=== PATIENT | female | born 1955 | race Caucasian/White ===

== ENCOUNTER 2017-09-28 16:12 | Observation (INO) | payer OTHER, BC, SELFPAY ==
[2017-09-28] VITALS (9 sets, daily range): BP systolic 136–191; BP diastolic 96–114; PULSE 67–99; RESP 16–23; TEMP 36.8; O2SAT 95–99; BMI 28.0; BMI 26.6; BMI 28.1
--- NOTE | 2017-09-28 16:46 | EKG12_ITS ---
Test Reason : HTN Blood Pressure : / mmHG Vent. Rate : 083 BPM Atrial Rate : 083 BPM P-R Int : 130 ms QRS Dur : 082 ms QT Int : 406 ms P-R-T Axes : 069 055 068 degrees QTc Int : 477 ms Normal sinus rhythm Normal ECG Confirmed by KECIA LYNNE, MARTA ([id number]), editor book DENIS LOBO ([id number]) on 09/30/2017 2:46:44 PM Referred By: JESSICA Confirmed By:MARTA MCDONNELL MD
--- NOTE | 2017-09-28 16:46 | CT_ITS ---
CT Head or Brain W/O Contrast INDICATION: HTN, DIZZINESS. H/O CVA 6 YRS AGO, HEART STENTS. COMPARISON: None TECHNIQUE: Noncontrast axial CT examination of the brain. Radiation dose optimization applied. FINDINGS: The ventricular system is normal in size and symmetric. The cortical sulci, sylvian fissures, and basal cisterns are well seen. The hamilton-white matter junction is distinct. There is no evidence of acute intracranial hemorrhage, mass effect, midline shift, or abnormal extra-axial collection. The calvarium is intact and the visualized paranasal sinuses and mastoid air cells are clear. CT/Brain/Head without Contrast IMPRESSION: No evidence of acute intracranial abnormality by noncontrast CT. at 1812 Reported and signed by: Melia Alegre MD Electronically Signed: Melia Alegre MD at 17:10 EDT Tel , Service support ,
--- NOTE | 2017-09-28 16:48 | RAD_ITS ---
XR Chest 1 View INDICATION: hypertension COMPARISON: March 2014 TECHNIQUE: Portable chest x-ray FINDINGS: Penaloza size and pulmonary vascularity are within normal limits. Lungs are hyperinflated with coarsened interstitial markings. No evidence of focal airspace consolidation or pleural effusion. RAD/Chest 1 View (Portable) IMPRESSION: COPD. No active infiltrate. at 1709 Reported and signed by: Melia Alegre MD Electronically Signed: Melia Alegre MD at 16:07 EDT Tel , Service support ,
[2017-09-28 17:12] LABS: Absolute Lymphocyte Count 3.45 X10^3/ul (0.83-4.51); Basophil# 0.05 X10^3/uL; Basophil% 0.5 % (0-1); Eosinophil# 0.19 X10^3/uL; Hematocrit 44.7 % (37-47); Hemoglobin 14.4 g/dl (12.0-15.0); Lymphocyte # 3.45 X10^3/ul (4.0); Lymphocyte % 36.8 % (19-41); Mean Corp Hgb Conc 32.2 g/gl (32-36); Mean Corpuscular Hgb 29.6 pg (27.0-32.0); Mean Platelet Vol. 9.7 fl (6.2-12.0); Monocyte# 0.64 X10^3/uL; Monocyte% 6.8 % (0-10); Neutrophil # 5.04 X10^3/uL (2.7-7.7); Neutrophil % 53.8 % (47-70); Platelet Count 315 K/mm3 (150-450); RBC Distribution Width CV 13.8 % (11.6-14.6); RBC Distribution Width SD 46.4 fl (35.1-43.9); Red Blood Count 4.86 M/mm3 (4.2-5.4); White Blood Count 9.4 K/mm3 (4.4-11.0)
[2017-09-28 17:14] LABS: POSITIVE COUNT NO; POSITIVE DIFFERENTIAL NO; POSITIVE MORPHOLOGY NO
[2017-09-28 17:34] LABS: Anion Gap 7 (5-15); BUN 19 mg/dL (7-18); BUN/Creat Ratio 25.8 RATIO (10-20); Calcium,Total 8.3 mg/dL (8.5-10.1); Chloride 109 mmol/L (98-107); Creatinine, Serum 0.74 mg/dL (0.55-1.02); EST Glomerular Filtration Rate 85 mL/min (>60); Est Glom Filt Rate - Afr Amer 103 mL/min (>60); Estimated Creatinine Clearance 69.81 ml/min; Glucose 81 mg/dL (74-106); Potassium 4.1 mmol/L (3.5-5.1); Sodium Level 141 mmol/L (136-145)
[2017-09-28 18:51] LABS: Bacteria 0 SEEN /hpf (None Seen); Mucous, Urine 0 SEEN /hpf (<or=2+); Red Blood Cells-Urine 0 SEEN /hpf (0-5); White Blood Cells 0 SEEN /hpf (0-5)
[2017-09-28 19:00] LABS: Color, Urine Yellow (Yellow); Glucose, Dipstick Normal (Normal); Ketone-Dipstick Negative (Negative); Leukocyte Esterase-Dipstick 25 /ul (Negative); Nitrite-Dipstick Negative (Negative); Occult Blood-Urine 10 /ul (Negative); Protein-Dipstick Negative (Negative); Specific Gravity, Urine 1.015 (1.002-1.030); Urine Bilirubin Dipstick Negative (Negative); Urine Clarity Clear (Clear); Urine Urobilinogen Normal (Normal)
[2017-09-28 19:28] LABS: Squamous Epithelial Cells - UA 0-5 SEEN /hpf (5-10)
--- NOTE | 2017-09-28 19:36 | ED.VISSUMM ---
- ER Visit Summary Date of Service: 09/28/17 Chief Complaint: [Penis and hypertension] History of Present Illness: The patient is a 62 F [presents to the emergency department with chief complaint of dizziness for about a month. Patient states that she has had episodes of vertigo-like symptoms that cause her to feel nauseated. These symptoms come on randomly and it can happen while standing or sitting or lying flat. The events are very brief lasting only several minutes and then resolved. They become more frequent over the last couple of days. Patient was seen by primary care physician yesterday because of elevated blood pressures and patient was started on amlodipine. Patient normally on losartan however has been somewhat noncompliant as she does not always take her blood pressure medications. Patient denies any chest pain or palpitations when the symptoms happened. Patient states she is chronically short of breath. Past medical history significant for hypertension and coronary artery disease with 2 prior cardiac stents.] Physical Examination: [HEENT-PERRLA, EOMI. Cranial nerves II through XII grossly intact. R TM clear. Mucous membranes moist. No adenopathy. Patient has a cerumen impaction left ear canal. Cardiovascular-regular rate and rhythm without murmur or ectopy Lungs-clear to auscultation, chest wall stable without crepitus or subcu emphysema Abdomen-normoactive bowel sounds, soft, nontender, no rebound or rigidity, no peritoneal signs. Neuro [id number] and heel armstrong testing within normal limits, negative Romberg, negative pronator drift, fundi benign. Hallpike was negative for nystagmus and I could not reproduce her symptoms. Extremities-intact ?4, normal range of motion, normal pulses, atraumatic] Test Results: [CT scan of the brain without contrast was normal. EKG obtained on arrival shows sinus rhythm with a rate of 83 bpm with no acute ST segment changes. CBC with it was normal. Chemistries were normal. Urinalysis was normal. Troponin was less than 0.02. Chest x-ray showed COPD otherwise nothing acute.] Emergency Department Course and Treatment: [Patient had irrigation of the left ear and cerumen was removed with normal tympanic membrane visualized after removal.] Treatment Plan: [This point I recommended we admit patient for further workup and evaluation of her vertigo as I was concerned about possibility of posterior circulation etiology. Patient understands my concerns and is refusing admission at this point. Patient states she has had the symptoms for over a month and would like to follow-up as an outpatient.] I will start patient on Antivert. Disposition: [Discharged to home in stable condition. Patient will be referred to neurology on-call.] Impression: [Hypertension-established Vertigo/dizziness-etiology uncertain ] This note was generated with [employer] dictation software. It may contain incorrect words, spelling, and punctuation that were not noted in review of the chart prior to signing ED Disposition - Plan for ED Patient: Chief Complaint: Hypertension Referrals: Miri Cummins DO [Primary Care Provider] -
--- NOTE | 2017-09-28 19:41 | ED.DEP ---
ED Disposition - Plan for ED Patient: Chief Complaint: Hypertension Instructions: ED HTN Established, ED Dizziness UKO Prescriptions: Meclizine HCl [Antivert] 25 mg PO 4X/DAY PRN PRN #15 tab PRN Reason: Vertigo Referrals: Miri Cummins DO [Primary Care Provider] - 5-7 Days Shiraz Porter MD [STAFF PHYSICIAN] - 3-5 Days
--- NOTE | 2017-09-28 20:26 | PCM.HP.STD ---
Problem List (1) Vertigo Status: Acute (2) CAD (coronary artery disease) Status: Chronic (3) Hypertension Status: Chronic History of Present Illness Date of Admission: 09/28/17 Chief Complaint: dizziness The patient is a 62 year old F who presents with multiple bouts of vertigo over the past month. Patient states that it has been getting worse and now multiple times per day. Can occur when she is active, can occur when she is at rest. States that when it does occur, she has to lay down it usually resolves after a few minutes. With these symptoms, patient does get nauseated and just dizzy and weak. And has never had these problems before. Patient presented to the emergency room and underwent a workup being a CAT scan. CAT scan showed no acute stroke. The remainder of her workup was negative. They did do orthostatic vital signs which blood pressure actually went up when she stood up. Shunk-Hallpike performed in the emergency room was negative. [] Past Medical History Past Medical History (Chronic Problems): Chronic Problems CAD (coronary artery disease) (Chronic) Hypertension (Chronic) Allergies No Known Allergies Allergy (Verified 09/28/17 16:12) Home Medications: Ambulatory Orders Medication Instructions Recorded Nitroglycerin [Nitrostat] 0.4 mg SUBLINGUAL Q5M PRN 03/25/14 Pramipexole Di-HCl [Mirapex] 0.5 mg PO QHS 03/25/14 Losartan Potassium [Cozaar] 100 mg PO DAILY 02/05/15 Amlodipine [Norvasc] 10 mg PO DAILY 09/28/17 Meclizine HCl [Antivert] 25 mg PO 4X/DAY PRN PRN #15 tab 09/28/17 Surgical History: hysterectomy Psychiatric History: No pertinent psych hx Lives: Spouse/ Significant Other Smoking Status: Heavy Smoker (>10/day) Tobacco Use: Cigarettes Alcohol: Rare Drugs: None - *Family History Paternal History Items: Heart Disease Review of Systems Constitutional: Denies: Chills, Fever, Weight Change Eyes: Denies: Blurred vision, Double vision HEENT: Denies: Head Aches, Sinus Congestion, Sinus Drainage Cardiovascular: Reports: Chest Pain, Edema Respiratory: Denies: Cough, Shortness of breath at rest, Shortness of breath upon exertion Gastrointestinal: Reports: Nausea. Denies: Abdominal Pain Genitourinary: Denies: Dysuria Musculoskeletal: Denies: Joint Pain, Joint Tenderness Skin: Denies: Rash, Wounds Neurological: Denies: Blurred vision, Double vision, Focal weakness, Numbness, Tingling Psychiatric: Denies: Anxiety, Depression Endocrine: Reports: Change in Body Habitus - 12 pounds over the past year Hematologic/ Lymphatic: Denies: Easy Bruising, Easy Bleeding, Hx of blood clot VTE Information - Inpt Only VTE Present on Admission: No VTE Pharm Prophylaxis ordered?: Yes Patient Problems: Active and Suspected Problems Vertigo (Acute) - Physical Exam General: Alert, Cooperative, No apparent distress, Well developed, Well nourished HEENT: Atraumatic, PERRLA, EOMI, Normocephalic Oral: Moist Mucosa, No Gingival or Mucosal Lesions/ Ulcerations Neck: Negative Carotid Bruits, No Nodes, Thyroid Normal Size and Texture Lungs: Clear to auscultation, Normal air movement, No rhonchi, No wheeze Cardiovascular: Regular rate, Regular Rhythm, Normal S1, Normal S2, No murmurs Abdomen: Bowel Sounds Present, Soft, Non Tender, Non-Distended, No Hepato-splenomegaly Extremities: No edema, No Calf Tenderness Skin: No rashes, No breakdown Musculoskeletal: No Tenderness to Palpation of Joints or Extremities, No Muscle Wasting Neurological: Cranial nerves II-XII grossly intact, Neuro grossly intact, Motor Exam 5/5 strength throughout, Muscle tone normal Psych/Mental Status: Normal Affect, Appropriate Vital Signs Temp Pulse Resp BP Pulse Ox 36.8 C 71 20 H 182/103 H 96 09/28/17 16:13 09/28/17 19:46 09/28/17 19:46 09/28/17 19:46 09/28/17 19:46 Oxygen Delivery Method Room Air Weight: 74.3 kg Body Mass Index (BMI) 28.0 Laboratory Tests Past 24 Hrs 09/28/17 09/28/17 09/28/17 16:58 16:58 18:40 WBC 9.4 RBC 4.86 Hgb 14.4 Hct 44.7 MCV 92.0 MCH 29.6 MCHC 32.2 RDW 13.8 RDW Differential 46.4 H Plt Count 315 MPV 9.7 Immature Gran % (Auto) 0.100 Neut % (Auto) 53.8 Lymph % (Auto) 36.8 [place] % (Auto) 6.8 Eos % (Auto) 2.0 Baso % (Auto) 0.5 Absolute Neuts (auto) 5.0 Absolute Lymphs (auto) 3.45 Total Counted Not Reportable Sodium 141 Potassium 4.1 Chloride 109 H Carbon Dioxide 25.0 Anion Gap 7 BUN 19 H Creatinine 0.74 Estim Creat Clear Calc 69.81 Est GFR (MDRD) Af Amer 103 Est GFR (MDRD) Non-Af 85 BUN/Creatinine Ratio 25.8 H Glucose 81 Calcium 8.3 L Troponin I < 0.02 Urine Color Yellow Urine Clarity Clear Urine pH 8.0 Ur Specific [place] 1.015 Urine Protein Negative Urine Glucose (UA) Normal Urine Ketones Negative Urine Occult Blood 10 H Urine Nitrite Negative Urine Bilirubin Negative Urine Urobilinogen Normal Ur Leukocyte Esterase 25 H Urine RBC 0 SEEN Urine WBC 0 SEEN Ur Squamous Epith Cells 0-5 SEEN Urine Bacteria 0 SEEN Urine Mucus 0 SEEN EEG reviewed and is normal sinus rhythm without any acute changes. Clinical Impression(s) from Imaging Studies Brain CT 09/28/17 16:46 IMPRESSION: No evidence of acute intracranial abnormality by noncontrast CT. at 1812 Reported and signed by: Melia Alegre MD Electronically Signed: Melia Alegre MD at 17:10 EDT Tel , Service support , Chest X-Ray 09/28/17 16:48 IMPRESSION: COPD. No active infiltrate. at 1709 Reported and signed by: Melia Alegre MD Electronically Signed: Melia Alegre MD at 16:07 EDT Tel , Service support , Assessment/Plan Active and Suspected Problems Vertigo (Acute) 1. Vertigo Intermittent Not positional dependent, per the patient. Given patient's risk factors of coronary artery disease and 2 stents there is a concern for this being a posterior circulation etiology and patient will undergo a stroke workup. The possibilities could be peripheral vertigo. Plan is for an MRI of the brain, MRA of head and neck, 2D echocardiogram, physical and occupational therapy evaluate and treat. I am not consulting neurology at this point time as I feel this is prior more peripheral vertigo but if a stroke is identified then would proceed with neurology consultation. 2. Hypertension Has been accelerated but will not aggressively treat at this point time in light of possible stroke Will monitor. Continue with amlodipine as well as losartan for now 3. DVT prophylaxis with low molecular weight heparin. Code Visit OBSV E&M: 08309 Initial observation care L3
--- NOTE | 2017-09-28 20:34 | HP.PCM_ITS ---
Problem List (1) Vertigo Status: Acute (2) CAD (coronary artery disease) Status: Chronic (3) Hypertension Status: Chronic History of Present Illness Date of Admission: 09/28/17 Chief Complaint: dizziness The patient is a 62 year old F who presents with multiple bouts of vertigo over the past month. Patient states that it has been getting worse and now multiple times per day. Can occur when she is active, can occur when she is at rest. States that when it does occur, she has to lay down it usually resolves after a few minutes. With these symptoms, patient does get nauseated and just dizzy and weak. And has never had these problems before. Patient presented to the emergency room and underwent a workup being a CAT scan. CAT scan showed no acute stroke. The remainder of her workup was negative. They did do orthostatic vital signs which blood pressure actually went up when she stood up. Taylor-Hallpike performed in the emergency room was negative. [] Past Medical History Past Medical History (Chronic Problems): Chronic Problems CAD (coronary artery disease) (Chronic) Hypertension (Chronic) Allergies No Known Allergies Allergy (Verified 09/28/17 16:12) Home Medications: Ambulatory Orders Medication Instructions Recorded Nitroglycerin [Nitrostat] 0.4 mg SUBLINGUAL Q5M PRN 03/25/14 Pramipexole Di-HCl [Mirapex] 0.5 mg PO QHS 03/25/14 Losartan Potassium [Cozaar] 100 mg PO DAILY 02/05/15 Amlodipine [Norvasc] 10 mg PO DAILY 09/28/17 Meclizine HCl [Antivert] 25 mg PO 4X/DAY PRN PRN #15 tab 09/28/17 Surgical History: hysterectomy Psychiatric History: No pertinent psych hx Lives: Spouse/ Significant Other Smoking Status: Heavy Smoker (>10/day) Tobacco Use: Cigarettes Alcohol: Rare Drugs: None - *Family History Paternal History Items: Heart Disease Review of Systems Constitutional: Denies: Chills, Fever, Weight Change Eyes: Denies: Blurred vision, Double vision HEENT: Denies: Head Aches, Sinus Congestion, Sinus Drainage Cardiovascular: Reports: Chest Pain, Edema Respiratory: Denies: Cough, Shortness of breath at rest, Shortness of breath upon exertion Gastrointestinal: Reports: Nausea. Denies: Abdominal Pain Genitourinary: Denies: Dysuria Musculoskeletal: Denies: Joint Pain, Joint Tenderness Skin: Denies: Rash, Wounds Neurological: Denies: Blurred vision, Double vision, Focal weakness, Numbness, Tingling Psychiatric: Denies: Anxiety, Depression Endocrine: Reports: Change in Body Habitus - 12 pounds over the past year Hematologic/ Lymphatic: Denies: Easy Bruising, Easy Bleeding, Hx of blood clot VTE Information - Inpt Only VTE Present on Admission: No VTE Pharm Prophylaxis ordered?: Yes Patient Problems: Active and Suspected Problems Vertigo (Acute) - Physical Exam General: Alert, Cooperative, No apparent distress, Well developed, Well nourished HEENT: Atraumatic, PERRLA, EOMI, Normocephalic Oral: Moist Mucosa, No Gingival or Mucosal Lesions/ Ulcerations Neck: Negative Carotid Bruits, No Nodes, Thyroid Normal Size and Texture Lungs: Clear to auscultation, Normal air movement, No rhonchi, No wheeze Cardiovascular: Regular rate, Regular Rhythm, Normal S1, Normal S2, No murmurs Abdomen: Bowel Sounds Present, Soft, Non Tender, Non-Distended, No Hepato- splenomegaly Extremities: No edema, No Calf Tenderness Skin: No rashes, No breakdown Musculoskeletal: No Tenderness to Palpation of Joints or Extremities, No Muscle Wasting Neurological: Cranial nerves II-XII grossly intact, Neuro grossly intact, Motor Exam 5/5 strength throughout, Muscle tone normal Psych/Mental Status: Normal Affect, Appropriate Vital Signs Temp Pulse Resp BP Pulse Ox 36.8 C 71 20 H 182/103 H 96 09/28/17 16:13 09/28/17 19:46 09/28/17 19:46 09/28/17 19:46 09/28/17 19:46 Oxygen Delivery Method Room Air Weight: 74.3 kg Body Mass Index (BMI) 28.0 Laboratory Tests Past 24 Hrs 09/28/17 09/28/17 09/28/17 16:58 16:58 18:40 WBC 9.4 RBC 4.86 Hgb 14.4 Hct 44.7 MCV 92.0 MCH 29.6 MCHC 32.2 RDW 13.8 RDW Differential 46.4 H Plt Count 315 MPV 9.7 Immature Gran % (Auto) 0.100 Neut % (Auto) 53.8 Lymph % (Auto) 36.8 [place] % (Auto) 6.8 Eos % (Auto) 2.0 Baso % (Auto) 0.5 Absolute Neuts (auto) 5.0 Absolute Lymphs (auto) 3.45 Total Counted Not Reportable Sodium 141 Potassium 4.1 Chloride 109 H Carbon Dioxide 25.0 Anion Gap 7 BUN 19 H Creatinine 0.74 Estim Creat Clear Calc 69.81 Est GFR (MDRD) Af Amer 103 Est GFR (MDRD) Non-Af 85 BUN/Creatinine Ratio 25.8 H Glucose 81 Calcium 8.3 L Troponin I < 0.02 Urine Color Yellow Urine Clarity Clear Urine pH 8.0 Ur Specific [place] 1.015 Urine Protein Negative Urine Glucose (UA) Normal Urine Ketones Negative Urine Occult Blood 10 H Urine Nitrite Negative Urine Bilirubin Negative Urine Urobilinogen Normal Ur Leukocyte Esterase 25 H Urine RBC 0 SEEN Urine WBC 0 SEEN Ur Squamous Epith Cells 0-5 SEEN Urine Bacteria 0 SEEN Urine Mucus 0 SEEN EEG reviewed and is normal sinus rhythm without any acute changes. Clinical Impression(s) from Imaging Studies Brain CT 09/28/17 16:46 IMPRESSION: No evidence of acute intracranial abnormality by noncontrast CT. at 1812 Reported and signed by: Melia Alegre MD Electronically Signed: Melia Alegre MD at 17:10 EDT Tel , Service support , Chest X-Ray 09/28/17 16:48 IMPRESSION: COPD. No active infiltrate. at 1709 Reported and signed by: Melia Alegre MD Electronically Signed: Melia Alegre MD at 16:07 EDT Tel , Service support , Assessment/Plan Active and Suspected Problems Vertigo (Acute) 1. Vertigo * Intermittent * Not positional dependent, per the patient. * Given patient's risk factors of coronary artery disease and 2 stents there is a concern for this being a posterior circulation etiology and patient will undergo a stroke workup. * The possibilities could be peripheral vertigo. * Plan is for an MRI of the brain, MRA of head and neck, 2D echocardiogram, physical and occupational therapy evaluate and treat. * I am not consulting neurology at this point time as I feel this is prior more peripheral vertigo but if a stroke is identified then would proceed with neurology consultation. 2. Hypertension * Has been accelerated but will not aggressively treat at this point time in light of possible stroke * Will monitor. Continue with amlodipine as well as losartan for now 3. DVT prophylaxis with low molecular weight heparin. Code Visit OBSV E&M: 76459 Initial observation care L3
--- NOTE | 2017-09-28 20:54 | ECHOD_ITS ---
Reason For Study: TIA/CVA Procedure This was a 2D Doppler, Color Flow transthoracic echocardiogram. Exam performed portable in patient room. Left Ventricle Normal LV size. Left ventricular systolic function is normal. The estimated ejection fraction is 60 %. No evidence for diastolic dysfunction. No regional wall motion abnormalities noted. Right Ventricle Normal RV size. Normal systolic function. Atria Normal left atrium. Normal right atrium. Bubble contrast study negative for right to left interatrial shunt. Mitral Valve Normal mitral valve. Tricuspid Valve Normal tricuspid valve. Mild (1+) tricuspid valve insufficiency. Pulmonary artery systolic pressure is 25 mmHg. Aortic Valve Normal aortic valve. Trisinus/trileaflet aortic valve. Pulmonic Valve Normal pulmonic valve. Great Vessels Normal aortic root. The pulmonary artery is normal size. Normal inferior vena cava. Pericardium/Pleural No pericardial effusion. MMode/2D Measurements & Calculations LVIDd: 3.9 cm IVSd: 1.1 cm Ao root diam: 3.1 cm LVIDs: 2.6 cm LVPWd: 1.1 cm LA dimension: 3.1 cm RVDd: 2.8 cm FS: 34.3 % LAV(MOD-bp): 31.5 ml LA A4 area: 10.3 cm2 RA A4 area: 9.3 cm2 LAV(MOD-bp) Indexed: 17.7 ml/m2 LAV(MOD-sp2): 33.1 ml LAV(MOD-sp4): 24.8 ml Time Measurements MV dec time: 0.22 sec Doppler Measurements & Calculations MV E max flash: 64.7 cm/sec Lat Peak E' Flash: 6.6 cm/sec Med Peak E' Flash: 5.0 cm/sec MV A max flash: 96.0 cm/sec E/E' lat: 9.8 E/E' med: 13.0 MV E/A: 0.67 Ao V2 max: 104.5 cm/sec LV V1 max: 92.2 cm/sec PA V2 max: 77.0 cm/sec Ao max P.4 mmHg LV V1 max P.4 mmHg TR max flash: 218.2 cm/sec TR max P.0 mmHg Interpretation Summary Normal LV size. Left ventricular systolic function is normal. The estimated ejection fraction is 60 %. No evidence for diastolic dysfunction. Mild (1+) tricuspid valve insufficiency. Bubble contrast study negative for right to left interatrial shunt. Ordering Physician: Guido Garnica Referring Physician: Miri Cummins Performed By: Doretha Day RDCS, RVT
[2017-09-28] MEDS: Pramipexole Di-HCl 0.5 MG Tablet PO (21:24)
[2017-09-28] MEDS: Aspirin 325 MG Tablet PO (21:27)
[2017-09-28] MEDS: hydrALAZINE 20 MG/ML Vial 10 MG IV (21:35)
[2017-09-29] VITALS (8 sets, daily range): BP systolic 119–167; BP diastolic 70–104; PULSE 59–84; RESP 16–18; TEMP 36.6–36.8; O2SAT 97–98; BMI 26.6
[2017-09-29 06:46] LABS: Cholesterol 210 mg/dL (200); High Density Lipoprotein 51 mg/dL; Triglycerides 141 mg/dL; Very Low Density Lipoprotein 28 mg/dL (5-40)
--- NOTE | 2017-09-29 07:27 | MRI_ITS ---
STUDY: MRI BRAIN WITH AND WITHOUT CONTRAST REASON FOR EXAM: Female, 62 years old. vertigo. TECHNIQUE: Standardized multiplanar fat and water weighted pulse sequences were obtained. 7 ml of Gadavist contrast material was administered intravenously for the contrast portion of the examination. COMPARISON: CT of the head dated 09/28/2017 FINDINGS: There is mild cerebral atrophy with widening of the extra-axial spaces and ventricular dilatation. There are multiple white matter hyperintensities, distributed throughout the deep white matter tracts of the cerebral hemispheres, consistent with moderate chronic white matter ischemic changes. Normal bilateral basal ganglia. Normal thalami. There is no extra-axial fluid accumulation. Normal flow voids within the major intracranial circulation suggesting patency by spin echo criteria. Normal venous enhancement. There is no enhancing intra-axial or extra-axial abnormality. Normal sella turcica, pituitary gland, infundibular stalk, optic chiasm and hypothalamus. Normal tectal plate and pineal gland. Normal midbrain, radha and medulla. Normal cerebellum. Normal basal cisterns. Normal bilateral temporal bones. Normal bilateral internal auditory canals. No demonstrated orbital abnormality, within the constraints of a routine brain study. Normal visualized paranasal sinuses. Normal calvarium and skull base. Normal visualized soft tissue structures. Normal visualized upper cervical spine. MRI/Brain W/WO Contrast IMPRESSION: No acute intracranial abnormality or masses. Moderate chronic microvascular ischemic changes. Electronically Signed: Sera Tavarez MD at 13:35 EDT Tel , Service support ,
--- NOTE | 2017-09-29 07:27 | MRI_ITS ---
STUDY: MRA NECK WITH AND WITHOUT CONTRAST REASON FOR EXAM: Female, 62 years old. vertigo -- multiple episodes of dizziness x 1 month, elevated BP. TECHNIQUE: 3-D [id number] (TOF) imaging was performed in an 1.5 T MRI scanner. 7 ml of Gadavist was administered for the contrast enhanced images. COMPARISON: None. FINDINGS: RIGHT CAROTID ARTERIES: Normal right common carotid artery (CCA). Normal right common carotid bulb. Normal origin of the right internal carotid (ICA) artery without a hemodynamically significant stenosis. Normal visualized cervical portion of the right internal carotid artery. Normal origin of the right external carotid artery (ECA). LEFT CAROTID ARTERIES: Normal left common carotid artery (CCA). Normal left common carotid bulb. Normal origin of the left internal carotid (ICA) artery without a hemodynamically significant stenosis. Normal visualized cervical portion of the left internal carotid artery. Normal origin of the left external carotid artery (ECA). VERTEBRAL ARTERIES: Normal antegrade flow within the bilateral vertebral artery without a hemodynamically significant stenosis. MRI/MRA Neck WITH and W/O Contrast IMPRESSION: Normal bilateral cervical carotid and vertebral arteries. Electronically Signed: Sera Tavarez MD at 12:54 EDT Tel , Service support ,
--- NOTE | 2017-09-29 07:27 | MRI_ITS ---
STUDY: MRA OF THE HEAD WITHOUT CONTRAST REASON FOR EXAM: Female, 62 years old. vertigo -- multiple episodes of dizziness x 1 month, elevated BP. TECHNIQUE: 3-D erup-lc-ypcegw (TOF) imaging was performed with MIPs. The study was performed unenhanced. COMPARISON: None. FINDINGS: Normal bilateral petrous carotid arteries. Normal right cavernous carotid artery with a normal supraclinoid bifurcation. Normal left cavernous carotid artery with a normal supraclinoid bifurcation. There is non-visualization of the right A1 segment of the anterior cerebral arteries consistent with either aplastic development or an occlusion. Normal left A1 segments of the anterior cerebral artery. Normal intact anterior communicating artery (ACOM). Normal bilateral A2 segments of the anterior cerebral arteries. Normal right M1 and M2 segments of the middle cerebral arteries, with a normal M1 bifurcation. Normal left M1 and M2 segments of the middle cerebral arteries, with a normal M1 bifurcation. 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 Large left posterior communicating artery (PCOM). Small bilateral vertebral arteries. Small basilar artery with a normal basilar bifurcation. The visualized bilateral superior cerebellar (SCA) arteries are normal. There is absence of the right P1 segment of the posterior cerebral arteries with a normal left P1 segment. Normal visualized bilateral P2 and P3 segments of the posterior cerebral arteries. There is no demonstrated aneurysm of the [place]. There is no major vessel occlusion or hemodynamically significant stenosis. There is no demonstrated abnormality of the visualized brain. MRI/MRA Head ONLY without Contrast IMPRESSION: No occlusion or significant stenosis. Variant anatomy. Electronically Signed: Sera Tavarez MD at 12:52 EDT Tel , Service support ,
--- NOTE | 2017-09-29 10:15 | NURSING ---
0905 [facility] & [facility] late d/t pt being off unit at MRI
[2017-09-29] MEDS: Losartan Potassium 100 MG Tablet PO (10:20)
[2017-09-29] MEDS: Aspirin 81 MG TAB.CHEW PO (10:20)
[2017-09-29] MEDS: amLODIPine 10 MG Tablet PO (10:20)
--- NOTE | 2017-09-29 15:45 | PCM.DC ---
- Discharge Diagnoses Current Active Problems: Current Active and Chronic Problems Vertigo (Acute) CAD (coronary artery disease) (Chronic) Hypertension (Chronic) You will use the following diet at home:: No restrictions Your food should be the consistency of: Regular Your liquids should be the consistency of: Regular/Thin Discharge Activity: Return to Normal Activity Weight Bearing Status: Full weight bearing Instructions: ED Dizziness UKO, ED HTN Established Allergies/Adverse Reactions: Allergies No Known Allergies Allergy (Verified 09/28/17 21:11) Medications to take at Discharge Nitroglycerin [Nitrostat] 0.4 mg SUBLINGUAL Q5M PRN 03/25/14 Pramipexole Di-HCl [Mirapex] 0.5 mg PO QHS 03/25/14 Amlodipine [Norvasc] 10 mg PO DAILY 09/28/17 Aspirin [Aspirin, Baby] 81 mg DAILY 09/28/17 Acetaminophen [Tylenol Tablet] 650 mg PO Q6H PRN PRN tablet 09/29/17 Aspirin [Aspirin, Baby] 81 mg PO DAILY@0800 tab.chew 09/29/17 Atorvastatin Calcium [Lipitor] 20 mg PO DAILY #30 tab 09/29/17 Hydrochlorothiazide 12.5 mg PO DAILY #30 tab 09/29/17 Losartan Potassium [Cozaar] 100 mg PO DAILY tablet 09/29/17 Nicotine [Nicotine Patch] 1 ea TD DAILY #30 patch.td24 09/29/17 The following prescriptions were given: Atorvastatin Calcium [Lipitor] 20 mg PO DAILY #30 tab Hydrochlorothiazide 12.5 mg PO DAILY #30 tab Nicotine [Nicotine Patch] 1 ea TD DAILY #30 patch.td24 Please Follow Up With: Miri Cummins DO When: at next appointment time Please Follow Up With: Abran Covington When: in next 4-6 weeks
--- NOTE | 2017-10-02 10:58 | PCM.DC.SUM ---
Discharge Date and Diagnosis Date of Admission: 09/28/17 Date of Discharge: 09/29/17 - Primary Discharge Diagnosis #1 benign vertigo #2 uncontrolled hypertension #3 coronary artery disease #4 noncompliance with medical regimen - Secondary Discharge Diagnosis Chronic Problems CAD (coronary artery disease) (Chronic) Hypertension (Chronic) Hospital Course and Treatment Operations: None Procedures: 2-D Echocardiogram Summary of Care Provided: The patient is a 62 year old F who was seen in the emergency room [facility] with chief complaint of dizziness for approximately 1 month off and on. Patient stated that she felt her environment was spinning around her and she felt nauseated. Nothing in particular would trigger these episodes. She was seen recently by her PCP who adjusted her blood pressure medications due to hypertension. Workup in the emergency room included a CT of the brain which was unremarkable EKG showed normal sinus rhythm, CBC and chemistries were unremarkable, troponin was less than 0.02. Chest x-ray indicated possible COPD but was otherwise negative. Patient was admitted to PCU, additional imaging studies were performed which were unremarkable, patient underwent an echocardiogram which showed a normal EF and no other abnormalities. It appears that the patient had benign vertigo, her blood pressure was high during her hospitalization and her blood pressure medications were adjusted. In talking with the patient, it appears that she is not on several medications that she should be taking due to her coronary artery disease, she admitted that she probably stop these medications on her own. I asked her she would resume some of them and she agreed to do this, she will follow-up with her PCP and hr administrator. On 09/29/17, patient was seen and examined felt to be in stable condition for discharge home Discharge Activity: Return to Normal Activity Weight Bearing Status: Full weight bearing Home Medications: Medications to take at Discharge Nitroglycerin [Nitrostat] 0.4 mg SUBLINGUAL Q5M PRN 03/25/14 Pramipexole Di-HCl [Mirapex] 0.5 mg PO QHS 03/25/14 Amlodipine [Norvasc] 10 mg PO DAILY 09/28/17 Aspirin [Aspirin, Baby] 81 mg DAILY 09/28/17 Acetaminophen [Tylenol Tablet] 650 mg PO Q6H PRN PRN tablet 09/29/17 Aspirin [Aspirin, Baby] 81 mg PO DAILY@0800 tab.chew 09/29/17 Atorvastatin Calcium [Lipitor] 20 mg PO DAILY #30 tab 09/29/17 Hydrochlorothiazide 12.5 mg PO DAILY #30 tab 09/29/17 Losartan Potassium [Cozaar] 100 mg PO DAILY tablet 09/29/17 Nicotine [Nicotine Patch] 1 ea TD DAILY #30 patch.td24 09/29/17 Following Prescrptions Were Given to Patient: Atorvastatin Calcium [Lipitor] 20 mg PO DAILY #30 tab Hydrochlorothiazide 12.5 mg PO DAILY #30 tab Nicotine [Nicotine Patch] 1 ea TD DAILY #30 patch.td24 Please Follow Up With: Miri Cummins DO When: at next appointment time Please Follow Up With: Abran Covington When: in next 4-6 weeks Patient Instructions: ED Dizziness UKO, ED HTN Established Disposition: Home Minutes spent on discharge:: 25 Patient Condition:: Stable Medical Necessity - Tobacco Use Smoking Status: Heavy Smoker (>10/day) Tobacco Use: Cigarettes Meaningful Use Info Meaningful Use Diagnoses (Choose all that apply): None applicable Code Visit OBSV E&M: 66971 Observation care discharge
--- NOTE | 2017-10-02 11:02 | DS.PCM_ITS ---
Discharge Date and Diagnosis Date of Admission: 09/28/17 Date of Discharge: 09/29/17 - Primary Discharge Diagnosis #1 benign vertigo #2 uncontrolled hypertension #3 coronary artery disease #4 noncompliance with medical regimen - Secondary Discharge Diagnosis Chronic Problems CAD (coronary artery disease) (Chronic) Hypertension (Chronic) Hospital Course and Treatment Operations: None Procedures: 2-D Echocardiogram Summary of Care Provided: The patient is a 62 year old F who was seen in the emergency room [facility] with chief complaint of dizziness for approximately 1 month off and on. Patient stated that she felt her environment was spinning around her and she felt nauseated. Nothing in particular would trigger these episodes. She was seen recently by her PCP who adjusted her blood pressure medications due to hypertension. Workup in the emergency room included a CT of the brain which was unremarkable EKG showed normal sinus rhythm, CBC and chemistries were unremarkable, troponin was less than 0.02. Chest x-ray indicated possible COPD but was otherwise negative. Patient was admitted to PCU , additional imaging studies were performed which were unremarkable, patient underwent an echocardiogram which showed a normal EF and no other abnormalities. It appears that the patient had benign vertigo, her blood pressure was high during her hospitalization and her blood pressure medications were adjusted. In talking with the patient, it appears that she is not on several medications that she should be taking due to her coronary artery disease , she admitted that she probably stop these medications on her own. I asked her she would resume some of them and she agreed to do this, she will follow-up with her PCP and assistant store manager sales. On 09/29/17, patient was seen and examined felt to be in stable condition for discharge home Discharge Activity: Return to Normal Activity Weight Bearing Status: Full weight bearing Home Medications: Medications to take at Discharge Nitroglycerin [Nitrostat] 0.4 mg SUBLINGUAL Q5M PRN 03/25/14 Pramipexole Di-HCl [Mirapex] 0.5 mg PO QHS 03/25/14 Amlodipine [Norvasc] 10 mg PO DAILY 09/28/17 Aspirin [Aspirin, Baby] 81 mg DAILY 09/28/17 Acetaminophen [Tylenol Tablet] 650 mg PO Q6H PRN PRN tablet 09/29/17 Aspirin [Aspirin, Baby] 81 mg PO DAILY@0800 tab.chew 09/29/17 Atorvastatin Calcium [Lipitor] 20 mg PO DAILY #30 tab 09/29/17 Hydrochlorothiazide 12.5 mg PO DAILY #30 tab 09/29/17 Losartan Potassium [Cozaar] 100 mg PO DAILY tablet 09/29/17 Nicotine [Nicotine Patch] 1 ea TD DAILY #30 patch.td24 09/29/17 Following Prescrptions Were Given to Patient: Atorvastatin Calcium [Lipitor] 20 mg PO DAILY #30 tab Hydrochlorothiazide 12.5 mg PO DAILY #30 tab Nicotine [Nicotine Patch] 1 ea TD DAILY #30 patch.td24 Please Follow Up With: Miri Cummins DO When: at next appointment time Please Follow Up With: Abran Covington When: in next 4-6 weeks Patient Instructions: ED Dizziness UKO, ED HTN Established Disposition: Home Minutes spent on discharge:: 25 Patient Condition:: Stable Medical Necessity - Tobacco Use Smoking Status: Heavy Smoker (>10/day) Tobacco Use: Cigarettes Meaningful Use Info Meaningful Use Diagnoses (Choose all that apply): None applicable Code Visit OBSV E&M: 16123 Observation care discharge
== END 2017-09-29 15:48 | disposition home or self-care (01) ==
LOC: ED 17:46 → PCU 21:01
PROVIDERS: Emergency Provider Emergency Medicine; Family Provider Family Medicine; PCP Family Medicine; Visit Provider Internal Medicine
DX: R42 Dizziness and giddiness (principal); I10 Essential (primary) hypertension; I25.10 Atherosclerotic heart disease of native coronary artery without angina pectoris; Z91.14 Patient's other noncompliance with medication regimen; Z79.899 Other long term (current) drug therapy; Z79.82 Long term (current) use of aspirin; R11.0 Nausea; R53.1 Weakness; F17.210 Nicotine dependence, cigarettes, uncomplicated; H61.22 Impacted cerumen, left ear
CPT/HCPCS: 36415; 70450; 70544; 70549; 70553; 71045; 80048; 80061; 81001; 84484; 85025; 93005; 93306; 96374; 97162; 99218; 99285; A9585; A4216; G0378

== ENCOUNTER 2019-01-10 01:07 | Inpatient (IN) | payer BC, SELFPAY ==
[2019-01-10] VITALS (37 sets, daily range): BP systolic 86–164; BP diastolic 52–107; PULSE 53–665; RESP 14–25; TEMP 36.6–36.8; O2SAT 92–100; BMI 29.2; BMI 28.3
[2019-01-10] MEDS: Heparin Injection (Vial) 5,000 UNIT/ML VIAL 4000 UNIT IV (01:10)
--- NOTE | 2019-01-10 01:12 | RAD_ITS ---
HISTORY: CPChest PainRAD - ChestSTEMI EXAM: XR Chest 1 View COMPARISON: September 28, 2017 FINDINGS: LINES/DEVICES: None. LUNGS: There are chronic interstitial changes. No pneumothorax. No consolidation or effusion. MEDIASTINUM AND CARDIOVASCULAR STRUCTURES: Cardiac silhouette not enlarged. Central airways and mediastinal contour are unremarkable. Athersclerotic plaque within the aortic arch. BONES AND SOFT TISSUES: Thoracic spondylosis. RAD/Chest 1 View (Portable) IMPRESSION: Chronic interestitial changes. No radiographic evidence of acute cardiopulmonary disease. at 0150 Reported and signed by: Hussain Richardson MD Electronically Signed: Hussain Richardson MD at 1:49 EDT Tel , Service support ,
--- NOTE | 2019-01-10 01:12 | EKG12_ITS ---
Test Reason : AM EKG Blood Pressure : / mmHG Vent. Rate : 058 BPM Atrial Rate : 058 BPM P-R Int : 146 ms QRS Dur : 082 ms QT Int : 514 ms P-R-T Axes : 077 050 -65 degrees QTc Int : 504 ms Sinus bradycardia T wave abnormality, consider inferior ischemia Prolonged QT Abnormal ECG Confirmed by NIC LYNNE, KEANU ([id number]), loan expeditor MONCHO MOSES ([id number]) on 01/15/2019 1:58:57 PM Referred By: Tristen Mchugh Confirmed By:KEANU LUCERO MD
--- NOTE | 2019-01-10 01:13 | ED.DCSUM_ITS ---
History of Present Illness Chief Complaint: Chest Pain Informant: Patient Narrative: Stated she developed chest pain 45 minutes ago. It is across her chest and is a tightness. She has 2 stents in her heart remotely. She is on a beta-marty medication. She states she is not taking her medications however. She did take full-strength aspirin at home as well as 3 nitroglycerin and continue to have pain. She called EMS. EMS did a EKG which showed a STEMI pattern. It was called from the field. I discussed with cardiology. Dr. Mchugh would like us to give the patient Brilinta and heparin. We will not give her nitroglycerin as this is an inferior [place]. She had 3 doses at home with no relief of pain. Patient will emergently go to the Digital Media Coordinator under STEMI protocol. Past Medical History - Allergies and Home Meds Allergies/Adverse Reactions: Allergies No Known Allergies Allergy (Verified 09/28/17 21:11) Primary Care Physician: Miri Cummins DO [Primary Care Provider] - Prior records reviewed: Yes Past Medical History: - - Viewed Surgical History: hysterectomy, - - Heart cath with stents Smoking Status: Heavy Smoker (>10/day) Alcohol: None Drugs: None - Family History Paternal Family History: Reports: Heart Disease Review of Systems General: Denies: Chills, Fever, Sweats Eyes: Denies: Visual changes - bilaterally, Diplopia ENT: Denies: Rhinorrhea, Sore throat Cardiovascular: Reports: Chest pain. Denies: Palpitations Respiratory: Denies: Dyspnea, Cough, Dyspnea on exertion Gastrointestinal: Denies: Abdominal pain, Nausea, Vomiting, Diarrhea, Melena, Hematochezia Genitourinary: Denies: Dysuria, Hematuria, Frequency Musculoskeletal: Denies: Back pain, Extremity Pain Skin: Denies: Rash, Wounds Neurological: Denies: Headache, Weakness, Numbness Physical Exam Vital Signs/Narrative: Vital Signs Temp Pulse Resp BP Pulse Ox 01/10/19 01:08 98.2 F 75 16 123/92 H 01/10/19 01:07 70 16 123/92 H 97 General: Well nourished, Well developed, No Acute Distress Head: Normocephalic, Atraumatic Eyes: Perrl, EOMI ENT: Moist mucous membranes, No rhinorrhea Neck: Supple, Nontender Cardiovascular: Regular rate, Regular rhythm, No murmurs Respiratory: No distress, CTA bilaterally, Chest nontender Abdomen: Soft, Nontender, Nondistended, Normal bowel sounds Back: Nontender, Normal Inspection Extremities: Nontender, No edema Skin: Normal color, No rash Neurological: Alert, Oriented x3, Cranial nerves II-XII grossly intact, Normal Strength, Normal Sensation Psychological: Normal affect, Normal Mood Diagnostic/Tx/Re-eval - Medical Decision Making Patient has an acute STEMI. Given Brilinta and heparin. Already took aspirin at home. Heart rate initially 75. Dropped into the 30s. Given 1 dose of atropine. Given IV fluid bolus. To the Digital Media Coordinator immediately. Treatment with atropine heart rate in the 50s. Blood pressure in the 90s systolic. - Critical Care Time Critical care time (excluding procedures): 30-74 minutes ED Disposition - Plan for ED Patient: Diagnosis: ST elevation myocardial infarction (STEMI) Referrals: Miri Cummins DO [Primary Care Provider] -
[2019-01-10] MEDS: TICAGRELOR 90 MG TABLET 180 MG PO (01:25)
[2019-01-10 01:26] LABS: Absolute Lymphocyte Count 6.38 X10^3/ul (0.83-4.51); Absolute Neutrophil Count 4.2 X10^3/uL (2.0-7.7); Basophil# 0.05 X10^3/uL; Basophil% 0.4 % (0-1); Differential Indicated SCAN CRITERIA MET; Eosinophil# 0.37 X10^3/uL; Eosinophils% 3.1 % (0-5); Hematocrit 40.7 % (37-47); Hemoglobin 13.4 g/dl (12.0-15.0); Lymphocyte # 6.38 X10^3/ul (4.0); Lymphocyte % 52.8 % (19-41); Mean Corp Hgb Conc 32.9 g/gl (32-36); Mean Corpuscular Hgb 29.6 pg (27.0-32.0); Mean Corpuscular Volume 89.8 fL (81-99); Mean Platelet Vol. 9.5 fl (6.2-12.0); Monocyte# 1.05 X10^3/uL; Monocyte% 8.7 % (0-10); Neutrophil # 4.22 X10^3/uL (2.7-7.7); Neutrophil % 34.8 % (47-70); POSITIVE COUNT NO; POSITIVE DIFFERENTIAL YES; POSITIVE MORPHOLOGY NO; Platelet Count 311 K/mm3 (150-450); RBC Distribution Width CV 13.5 % (11.6-14.6); RBC Distribution Width SD 44.4 fl (35.1-43.9); Red Blood Count 4.53 M/mm3 (4.2-5.4); White Blood Count 12.1 K/mm3 (4.4-11.0)
--- NOTE | 2019-01-10 01:28 | PCM.HP.STD ---
Problem List (1) ST elevation myocardial infarction (STEMI) Status: Acute (2) CAD (coronary artery disease) Status: Chronic (3) Hypertension Status: Chronic History of Present Illness Date of Admission: 01/10/19 Chief Complaint: chest pain The patient is a 63 year old F with a significant history of hypertension; active smoker; CAD status post 2 stents who presented to the emergency department with a 45 minutes history of excruciating substernal chest pain. Her chest pain radiated to her upper back. She describes her chest pain as pressurized. STEMI alert was called prior to the patient arriving to the emergency department. EKG was found to have ST elevation in inferior leads and with reciprocal T wave inversions. At the emergency department patient blood pressure dropped into the 90s and her heart rate dropped into the 30s. She received IV normal saline bolus and 1 mg of IV atropine. Her heart rate increased into the 50s. She was emergently taken to the Cardiovascular Physician Assistant. Past Medical History Past Medical History (Chronic Problems): Chronic Problems CAD (coronary artery disease) (Chronic) Hypertension (Chronic) Allergies No Known Allergies Allergy (Verified 09/28/17 21:11) Home Medications: Ambulatory Orders Medication Instructions Recorded Nitroglycerin (INPATIENT USE) 0.4 mg SUBLINGUAL Q5M PRN 03/25/14 [Nitrostat] Pramipexole Di-HCl [Mirapex] 0.5 mg PO QHS 03/25/14 Amlodipine [Norvasc] 10 mg PO DAILY 09/28/17 Aspirin [Aspirin, Baby] 81 mg DAILY 09/28/17 Acetaminophen [Tylenol Tablet] 650 mg PO Q6H PRN PRN tablet 09/29/17 Aspirin [Aspirin, Baby] 81 mg PO DAILY@0800 tab.chew 09/29/17 Atorvastatin Calcium [Lipitor] 20 mg PO DAILY #30 tab 09/29/17 Hydrochlorothiazide 12.5 mg PO DAILY #30 tab 09/29/17 Losartan Potassium [Cozaar] 100 mg PO DAILY tablet 09/29/17 Nicotine [Nicotine Patch] 1 ea TD DAILY #30 patch.td24 09/29/17 Surgical History: hysterectomy, - - Heart cath with stents Psychiatric History: No pertinent psych hx Smoking Status: Heavy Smoker (>10/day) Alcohol: None Drugs: None - *Family History Paternal History Items: Heart Disease - Her father from heart attack at age of 52 Review of Systems Constitutional: Denies: Chills, Fever, Weight Change HEENT: Denies: Head Aches, Sinus Congestion, Sinus Drainage Cardiovascular: Reports: Chest Pain. Denies: Palpitations Respiratory: Denies: Cough, Shortness of breath at rest, Sputum production Gastrointestinal: Denies: Abdominal Pain Genitourinary: Denies: Dysuria Musculoskeletal: Reports: Back Pain. Denies: Joint Pain, Joint Tenderness Skin: Denies: Rash, Wounds Neurological: Denies: Numbness, Tingling, Focal weakness Psychiatric: Denies: Anxiety, Depression, Homicidal Ideations, Suicidal Ideations Hematologic/ Lymphatic: Denies: Easy Bruising, Easy Bleeding VTE Information - Inpt Only VTE Present on Admission: No VTE Mechan Device Prophylaxis: None VTE Pharm Prophylaxis ordered?: No Reason prophylaxis not ordered:: Treatment Not Indicated - Patient received therapeutic dose of heparin for stable Patient Problems: Active and Suspected Problems ST elevation myocardial infarction (STEMI) (Acute) - Physical Exam General: Alert, Oriented x3, - - Patient excruciating pain secondary to ST elevation [place] HEENT: Atraumatic, PERRLA, EOMI, Normocephalic Oral: - - Loss of multiple teeth Neck: Supple, No JVD, Negative Carotid Bruits Lungs: Clear to auscultation, Normal air movement Cardiovascular: Regular rate, No murmurs Abdomen: Bowel Sounds Present, Soft, Non Tender Extremities: No edema, Capillary Refill Less than 3 Seconds Skin: No rashes, No breakdown Musculoskeletal: No Tenderness to Palpation of Joints or Extremities Neurological: Neuro grossly intact Psych/Mental Status: Anxious Vital Signs Temp Pulse Resp BP Pulse Ox 98.2 F 75 16 91/65 97 01/10/19 01:08 01/10/19 01:08 01/10/19 01:13 01/10/19 01:13 01/10/19 01:07 Oxygen Delivery Method Room Air Weight: 79.6 kg Body Mass Index (BMI) 29.2 Laboratory Tests Past 24 Hrs 01/10/19 01/10/19 01/10/19 01:15 01:15 01:15 WBC 12.1 H RBC 4.53 Hgb 13.4 Hct 40.7 MCV 89.8 MCH 29.6 MCHC 32.9 RDW 13.5 RDW Differential 44.4 H Plt Count 311 MPV 9.5 Immature Gran % (Auto) 0.200 Neut % (Auto) 34.8 L Lymph % (Auto) 52.8 H Bradley % (Auto) 8.7 Eos % (Auto) 3.1 Baso % (Auto) 0.4 Absolute Neuts (auto) 4.2 Absolute Lymphs (auto) 6.38 H Total Counted Pending PT Pending INR Pending APTT Pending Sodium Pending Potassium Pending Chloride Pending Carbon Dioxide Pending Anion Gap Pending BUN Pending Creatinine Pending Est GFR (MDRD) Af Amer Pending Est GFR (MDRD) Non-Af Pending BUN/Creatinine Ratio Pending Glucose Pending Calcium Pending Troponin I Pending Serum , Qual 01/10/19 01:15 WBC RBC Hgb Hct MCV MCH MCHC RDW RDW Differential Plt Count MPV Immature Gran % (Auto) Neut % (Auto) Lymph % (Auto) Bradley % (Auto) Eos % (Auto) Baso % (Auto) Absolute Neuts (auto) Absolute Lymphs (auto) Total Counted PT INR APTT Sodium Potassium Chloride Carbon Dioxide Anion Gap BUN Creatinine Est GFR (MDRD) Af Amer Est GFR (MDRD) Non-Af BUN/Creatinine Ratio Glucose Calcium Troponin I Serum , Qual Pending Assessment/Plan All Active Problems ST elevation myocardial infarction (STEMI) (Acute) The patient is a 63 year old F with a significant history of hypertension; active smoker; CAD status post 2 stents who presented to the emergency department with chest pain and ST elevation [place] in inferior leads. ST elevation [place] Admit to a monitored bed on PCU CXR independently reviewed showed hyper inflation without any acute cardiopulmonary process. EKG independently reviewed confirms ST elevation in inferior leads and reciprocal T wave inversions. Patient received loading dose of Brilinta and therapeutic dose of heparin; and was emergently sent to the Cardiovascular Physician Assistant. Follow further recommendations post cath. Tobacco Abuse Budget Technician when appropriate. DVT Not indicated at this time. Patient received therapeutic dose of heparin for NSTEMI. Code Visit Inpatient E&M: 99153 Init Hosp L3
[2019-01-10 01:30] LABS: International Normalized Ratio 1.1
[2019-01-10] MEDS: 0.9% Normal Saline 1,000 ML 500 ML IV (01:33)
[2019-01-10] MEDS: Atropine Sulfate 1 MG/10 ML Syringe IV (01:33)
[2019-01-10 01:39] LABS: Anion Gap 9 (5-15); BUN 26 mg/dL (7-18); BUN/Creat Ratio 23.2 RATIO (10-20); Calcium,Total 8.4 mg/dL (8.5-10.1); Chloride 106 mmol/L (98-107); Creatinine, Serum 1.12 mg/dL (0.55-1.02); EST Glomerular Filtration Rate 52 mL/min (>60); Est Glom Filt Rate - Afr Amer 63 mL/min (>60); Estimated Creatinine Clearance 47.46 ml/min; Glucose 177 mg/dL (74-106); Potassium 3.2 mmol/L (3.5-5.1); Sodium Level 139 mmol/L (136-145)
[2019-01-10 01:46] LABS: Partial Thromboplast Time > 250.0 Seconds (24.1-36.2)
--- NOTE | 2019-01-10 03:23 | CL.I_ITS ---
Patient Name: GIOVANNI LOMAX Study Date: 01/10/2019 Performing: Tristen Mchugh MD Ht: 64.96 inches 165 cm : 1955 Wt: 176.37 lbs 80 kg Age: 63 Gender: female BSA: 1.87 PROCEDURE(S) PERFORMED AC96-[id number]/COR/LV [id number], EMPERATRIZ AND/OR PTCA, ARTERY OR GRAFT, SINGLE VESSEL [id number], CORONARY OR GRAFT, INITIAL VESSEL CLINICAL PROFILE AND CO-MORBIDITIES Patient presents with STEMI for emergent cardiac cath. Indications: ACS <= 24 hrs, Worsening Angina, Stable Known CAD Heart Failure: None Stress/Imaging Stress/Image Study Performed: No Angina Classification Anginal Classification w/in 2 Weeks: CCS IV CAD Presentations: STEMI. Symptom onset Date/Time: 01/10/2019 Time Not Available Comorbidities/Risk Factors: Current/Recent Smoker (< 1year) Hypertension Dyslipidemia Prior PCI CONCLUSIONS Segmented LV systolic dysfunction- Mild LVEF: by LV gram 55 % Single vessel CAD of the RCA Non obstructive coronary arteries Acute occlusion of proximal RCA upstream from stent. Successful PTCA/EMPERATRIZ of occluded proximal RCA, upstream from previous stent, utilizing a 3.0 x 16 prom us Synergy, post dilated with a 3.0, 3.25 and 3.5 x 12 NC Balloon. 100%-->0%, no dissection. Pt had less than optimal stent deployment at end of first case despite 3.25 NC Balloon. Approximately 5 minutes after 1st procedure was completed and before pt had left can labeler table, pt h ad recurrent severe SSCP with recurrent ST elevation on monitor. Emergent reprep and relook showed a cute stent thrombosis. Emergent PTCA with 2.0 x 12 balloon, followed by [place] catheter, followed by IVUS performed. Pt given Integrillin bolus and gtt, followed by post stent dilatation with a 3.0 x 10 Angiosculpt, fo llowed by a 3.5 x 12 NC balloon. Repeat IVUS confirmed appropriate stent deployment and no resolutio n of scar tissue protruding through stent struts. RECOMMENDATIONS Referred for immediate PCI Highly recommend quitting all tobacco products Follow up with primary bakery products checker Risk factor modification ASA Indefinitley Plavix for at least 12 months Routine post interventional care Refer for Outpatient Cardiac Rehab Manual sheath removal per protocol Follow up with Dr. Mchugh Manual sheath removal 6 hours after Integrilin gtt is completed with femostop. asa and brilinta/plavix for life. DESCRIPTION OF PROCEDURE The patient arrived to the procedure lab. The risks and benefits of the procedure as well as a full d escription of our services here and lack of surgical backup were fully explained to the patient and/o r their significant other prior to the catheterization. The Timeout was completed, verifying the nae ect patient and procedure. The patient's procedural site was prepped and draped in the usual fashion. Local anesthetic was given subcutaneously to right groin region with Lidocaine 2%. Using a modified Seldinger technique, arterial access was obtained via the right femoral artery, a 6Fr sheath was inse rted.. Left Coronary Artery selective angiography was performed in multiple views using a 4 Fr. JL5 catheter. Right Coronary Artery selective angiography was then performed in multiple views using a 6 Fr. HS1. Left Ventriculography was performed in QUESADA projection using a 4 Fr. Pigtail catheter. LV to AO pullback pressures were then recorded HS1 Guide catheter was inserted and engaged into the RCA. Runthrough Guide wire was advanced to t he RCA. Emerge 2.0 x 12 Balloon catheter was inserted. Balloon catheter was advanced across lesion in the right coronary, proximal. PTCA balloon inflated at 8 atms for 9 secs. Angiogram performed post b alloon dilatation. PTCA balloon inflated at 8 atms for 12 secs. Synergy 3.0 x 16 Drug Eluting stent w as inserted. Drug Eluting stent was advanced across the lesion in the right coronary, proximal. Angio gram performed pre stent deployment. NC Emerge 3.0 x 12 Balloon catheter was inserted. Balloon cathet er was advanced across lesion in the right coronary, proximal. Angiogram performed post balloon dilat ation. NC Emerge 3.0 x 12 Balloon catheter was reinserted Balloon catheter was advanced across lesion in the right coronary, proximal. Post Stent PTCA balloon inflated at 12 atms for 12 secs. Post stent PTCA balloon inflated at 12 atms for 8 secs. Angiogram performed post balloon dilatation. NC EMERGE 3.0 x 12 Balloon catheter was reinserted Balloon catheter was advanced across lesion in th e right coronary, proximal. NC Emerge 3.25 x 12 Balloon catheter was inserted. Balloon catheter was a dvanced across lesion in the right coronary, proximal. HS1 Guide catheter was inserted and engaged in to the RCA. Runthrough Guide wire was advanced to the RCA. Emerge 2.0 x 12 Balloon catheter was inser roopa. Balloon catheter was advanced across lesion in the right coronary, proximal. [place] AP inserted Pass # 1 [place] AP Removed NC Emerge 3.5 x 12 Balloon catheter was inserted. Balloon catheter was adv anced across lesion in the right coronary, proximal. Angiogram performed post balloon dilatation. IVU S pullback recording was performed on the RCA for post PCI assessment. NC 3.5 x 12 Balloon catheter was inserted. Balloon catheter was advanced across lesion in the right coronary, proximal. IVUS pullb ack recording was performed on the RCA for post PCI assessment. Angiosculpt 3.0 x 10 Balloon catheter was inserted. Balloon catheter was advanced across lesion in the right coronary, pro ximal. Angiogram performed post balloon dilatation. The arterial sheath was sutured in place and ca pped. The arterial sheath was sutured in place and capped CORONARY ANGIOGRAPHY DOMINANCE: Right Dominant LEFT HEART ASSESSMENT Left Ventricular Ejection Fraction: by LV Gram 55 % Depressed Left Ventricular systolic function LVEDP: 15 mmHg Elevated Left Ventricular End Diastolic Pressure Inferior Basal Hypokinesis - Mild LEFT MAIN: Mild calcification, Mild luminal irregularities less than 30% LEFT ANTERIOR DESCENDING ARTERY: OSTIAL LAD: Moderate luminal irregularities up to 50% MID LAD: Mild luminal irregularities less than 30% CIRCUMFLEX ARTERY: Mild luminal irregularities less than 30% RIGHT CORONARY ARTERY: PROX RCA: is occluded INTERVENTION INFORMATION LESION SITE: RCA (Proximal) Lesion Complexity: High/C, lesion at bifurcation: No, thrombus present: Yes, lesion length: 16 mm, cu lprit lesion: Yes Pre Stenosis: 100 % Pre intervention DEMOND flow: 0 PROCEDURE: Drug Eluting Stent with pre dilatation., Cutting Balloon Angioplasty Post Stenosis: 0 % Post intervention DEMOND flow: 3 Lesion Devices: Fernando Sci EMERGE MR 2.00x12 BALLOON Medtronic 6 Fr HS1 100cm Guide Catheter Fernando Sci Synergy MR EMPERATRIZ 3.00x16 Fernando Sci NC EMERGE MR 3.00x12 BALLOON Fernando Sci NC EMERGE MR 3.25x12 BALLOON IGT Devices ( Formerly [place]) Coronary IVUS Catheter Fernando Sci NC EMERGE MR 3.50x12 BALLOON Fernando Sci EMERGE MR 2.00x12 BALLOON Medtronic 6 Fr. [place] AP Aspiration Catheter Medtronic 6 Fr HS1 100cm Guide Catheter Terumo .014 Runthrough Extra Floppy 180cm straight Appifier Angiosculpt RX 3.0x10 Scoring Balloon COMPLICATIONS No Complications PROCEDURE MEDICATIONS Morphine 2 mg IV Oxygen: 6 L/min via nasal cannula Atropine 1mg/10ml 0.5 amp @ 01/10/2019 01:37:37 Heparin 6000 unit(s) IV 01/10/2019 01:40:25 Nitro 200 mcg IC 01/10/2019 01:53:06 Nitro Tab 1 SL 01/10/2019 02:16:38 Nitro glycerin 25mg / 250ml D5W @ 5 mcg/min IV started 01/10/2019 02:18:39 Nitro glycerin 25mg / 250ml D5W @ mcg/min discontinued 01/10/2019 02:30:38 Nitro glycerin 25mg / 250ml D5W @ 5 mcg/min IV started 01/10/2019 02:36:36 Nitro 200 mcg IC 01/10/2019 02:37:54 Nitro 300 mcg IC 01/10/2019 02:43:06 Nitro glycerin 25mg / 250ml D5W @ 10 mcg/min (increased rate) 01/10/2019 02:45:40 Nitro 300 mcg IC 01/10/2019 02:48:48 IV Bolus: .9 NaCl 1800 ml total 01/10/2019 01:32:45 IV Fluids: .9 NaCl decreased to 150 ml/hr 01/10/2019 02:01:43 SUMMARY OF HEMODYNAMIC DATA Time AIR REST ECG 01:31:14 AO 130/77 (97) SA 01:35:21 ECG 02:01:22 LV 158/-16, 15 02:02:47 LV 155/-15, 15 02:02:53 LVp 156/-18, 12 02:03:01 AOp 159/88 (117) 02:03:06 Signed By Tristen Mchugh MD On 02/06/2019 12:33:29 Tristen Mchugh MD
[2019-01-10] MEDS: 0.9% Normal Saline 1,000 ML 150 ML IV (03:30)
[2019-01-10 03:31] LABS: ACT Activated Clotting Time 169 sec (74-137)
[2019-01-10 03:31] LABS: ACT Activated Clotting Time 235 sec (74-137)
[2019-01-10 03:31] LABS: ACT Activated Clotting Time 241 sec (74-137)
--- NOTE | 2019-01-10 03:34 | ECHOD_ITS ---
Reason For Study: CAD/ASHD Procedure This was a 2D Doppler, Color Flow transthoracic echocardiogram. Exam performed supine. Unable to reposition patient due to recent heart catherization. Exam performed portable in ICU/CCU. Left Ventricle Normal size and thickness. The estimated ejection fraction is 60 %. Stage 1 diastolic dysfunction. Posterior-Basal: Mildly hypokinetic. Right Ventricle Normal size and thickness. Normal systolic function. Atria Normal left atrium. Normal right atrium. Normal atrial septum. Mitral Valve The mitral valve is structurally normal. No prolapse or stenosis seen. Tricuspid Valve Normal tricuspid valve. Unable to estimate RV systolic pressure due to insufficient tricuspid regurgitant envelope. Aortic Valve Trisinus/trileaflet aortic valve. Mild diffuse aortic valve thickening. There is no aortic stenosis. Pulmonic Valve Normal pulmonic valve. Great Vessels Normal aortic root. Normal arch. Normal inferior vena cava. Inferior vena cava collapse with respiration. Pericardium/Pleural No pericardial effusion. MMode/2D Measurements & Calculations LVIDd: 4.2 cm IVSd: 1.2 cm Ao root diam: 3.2 cm LVIDs: 2.5 cm LVPWd: 1.0 cm RVDd: 3.3 cm FS: 39.9 % LAV(MOD-bp): 48.8 ml LA A4 area: 13.6 cm2 RA A4 area: 11.1 cm2 LAV(MOD-bp) Indexed: 26.9 ml/m2 LAV(MOD-sp2): 45.1 ml LAV(MOD-sp4): 40.2 ml Time Measurements MV dec time: 0.22 sec Doppler Measurements & Calculations MV E max flash: 84.6 cm/sec Lat Peak E' Flash: 8.9 cm/sec Med Peak E' Flash: 6.3 cm/sec MV A max flash: 110.1 cm/sec E/E' lat: 9.5 E/E' med: 13.5 MV E/A: 0.77 Ao V2 max: 114.4 cm/sec LV V1 max: 102.8 cm/sec PA V2 max: 73.2 cm/sec Ao max P.3 mmHg LV V1 max P.2 mmHg Interpretation Summary The estimated ejection fraction is 60 %. Stage 1 diastolic dysfunction. Posterior-Basal: Mildly hypokinetic Unable to estimate RV systolic pressure due to insufficient tricuspid regurgitant envelope. Compared to echo report dated 09/29/2017, LV function is preserved with new mild proximal posterior hypokinesis. Ordering Physician: Tristen Mchugh Referring Physician: Miri Cummins Performed By: Doretha Day RDCS, RVT
--- NOTE | 2019-01-10 03:34 | EKG12_ITS ---
Test Reason : AM EKG Blood Pressure : / mmHG Vent. Rate : 089 BPM Atrial Rate : 089 BPM P-R Int : 164 ms QRS Dur : 088 ms QT Int : 420 ms P-R-T Axes : 036 060 085 degrees QTc Int : 511 ms Normal sinus rhythm Nonspecific ST and T wave abnormality Prolonged QT Abnormal ECG When compared with ECG of 28-SEP-2017 16:59, Nonspecific T wave abnormality now evident in Anterolateral leads Confirmed by KECIA LYNNE, MARTA ([id number]), electronic news gathering editor ADAMARIS SAINZ ([id number]) on 01/16/2019 2:08:28 PM Referred By: Tristen Mchugh Confirmed By:MARTA MCDONNELL MD
[2019-01-10] MEDS: Ondansetron 4 MG/2 ML Vial IV ×2 (04:00→19:07)
[2019-01-10 04:14] LABS: Cholesterol 201 mg/dL (200); High Density Lipoprotein 48 mg/dL; Triglycerides 58 mg/dL; Very Low Density Lipoprotein 12 mg/dL (5-40)
[2019-01-10] MEDS: 0.9% NaCl Peripheral Flush Adult/Peds IV ×3 (04:55→19:41)
--- NOTE | 2019-01-10 07:33 | PN.CARD_ITS ---
Subjectve: Patient doing very well this morning. No chest pain. Right groin is clean/dry/intact with sheath in place. Telemetry showed normal sinus rhythm, no ventricular arrhythmias. EKG this morning showed normal sinus rhythm with resolving inferior lateral ST and T wave changes. Repeat hemoglobin and creatinine are pending. Echocardiogram pending. Objective: Vital Signs Temp Pulse Resp BP Pulse Ox 98.1 F 92 16 105/75 100 01/10/19 05:00 01/10/19 06:00 01/10/19 06:00 01/10/19 06:00 01/10/19 06:00 Oxygen Flow Rate (L/min) 2 Oxygen Delivery Method Nasal Cannula Weight: 164 lb 10.965 oz Body Mass Index (BMI) 28.3 Intake and Output for Last 24 Hours 01/08/19 01/09/19 01/10/19 23:59 23:59 23:59 Intake Total 221.7 / 221.7 Output Total 800 / 800 Balance -578.3 / -578.3 General: Awake, Alert, Oriented x 3 HEENT: PERRL, EOMI, Sclera Non Icteric Neck: Supple, Good ROM, No Lymph Node Enlargement Lungs: Clear to auscultation Cardiovascular: Regular Rhythm, Normal S1, Normal S2, No Murmurs, No Rubs, No Gallops Vascular: No Carotid Bruits, Normal Femoral Pulses, Normal Radial Pulses, Normal Dorsalis Pedal Pulse, Normal Posterior Tibial Pulses Abdomen: Bowel Sounds Present, Soft, Non Tender, No HSM, No Organomegaly Extremities: No Cyanosis, No Clubbing, No edema Neurological: No Focal Motor or Sensory Deficit 01/10/19 01:15: WBC 12.1 H, RBC 4.53, Hgb 13.4, Hct 40.7, MCV 89.8, MCH 29.6, MCHC 32.9, RDW 13.5, RDW Differential 44.4 H, Plt Count 311, MPV 9.5, Immature Gran % (Auto) 0.200, Neut % (Auto) 34.8 L, Lymph % (Auto) 52.8 H, Hardy % (Auto) 8.7, Eos % (Auto) 3.1, Baso % (Auto) 0.4, Absolute Neuts (auto) 4.2, Total Counted Not Reportable 01/10/19 01:15: PT 14.0, INR 1.1, APTT > 250.0 H* 01/10/19 01:15: Sodium 139, Potassium 3.2 L, Chloride 106, Carbon Dioxide 24.0, Anion Gap 9, BUN 26 H, Creatinine 1.12 H, Est GFR (MDRD) Af Amer 63, Est GFR (MDRD) Non-Af 52 L, BUN/Creatinine Ratio 23.2 H, Glucose 177 H, Calcium 8.4 L, Troponin I 0.054 H 01/10/19 03:52: Triglycerides 58, Cholesterol 201 H, LDL Cholesterol 141 H, VLDL Cholesterol 12, HDL Cholesterol 48 01/10/19 03:52: Troponin I 10.700 H* Rhythm: EKG: ECHO: Pending Stress Test: Cardiac Cath: PCI: CT Surgery: Holter monitor: EPS: PPM: CXR: Chest CT Scan: Medical Necessity - Tobacco Use Smoking Status: Current every day smoker Assessment/Plan 1. Coronary artery disease: Patient presented last evening with progressively worsening substernal chest pain which is been progressing over the last several days, culminating in acute inferior lateral wall myocardial infarction. She underwent emergent left heart catheterization and angioplasty and stenting of her proximal RCA with a stent overlapping into the previous RCA stent placed about [address] [place] at [facility]. Upon completion of the procedure last evening, but prior to leaving the lab the patient developed recurrent chest pain and ST elevation. Emergent repeat catheterization demonstrated acute stent thrombosis, the patient was treated with IV Integrilin on top of her previously given Brilinta, and underwent emergent angioplasty, thrombectomy, I have this evaluation, and additional post stent dilatation. Final result demonstrated widely patent right coronary artery, with excellent distal DEMOND blush score. This morning she is chest pain-free and doing well. She will continue baby aspirin, Brilinta, and IV Integrilin drip for approximately 12 hours time. We will obtain an ACT this morning, and remove the sheath of her ACT is less than 170. We will use additional support with a FemoStop while her Integrilin is completing. Patient will continue aspirin, Brilinta, beta-marty, and will start her on ARB therapy. She will undergo a 2D echo later today. 2. Hyperlipidemia: Her LDL is 141, HDL is 48. She was started on Lipitor 80 g p.o. nightly. Repeat lipid profile in 6 weeks time. 3. Tobacco cessation: Patient unfortunately had a significant sized psychosocial stress recently with the suicide of her son, and unfortunately has required increased doses of tobacco. I have talked to her about the benefits of discontinuation of tobacco, and hopefully this will improve her overall health. Should the patient require nicotine support while she is in the hospital, I believe is reasonable for low-dose nicotine patch. 4. Thank you very much for the opportunity to participate in the cardiac care of your patient. Continue ICU therapy. Code Visit Inpatient E&M: 09807 Subs Hosp L2
[2019-01-10 08:30] LABS: Absolute Lymphocyte Count 1.37 X10^3/ul (0.83-4.51); Absolute Neutrophil Count 8.6 X10^3/uL (2.0-7.7); Basophil# 0.02 X10^3/uL; Basophil% 0.2 % (0-1); Eosinophil# 0.01 X10^3/uL; Eosinophils% 0.1 % (0-5); Hematocrit 38.9 % (37-47); Hemoglobin 12.8 g/dl (12.0-15.0); Lymphocyte # 1.37 X10^3/ul (4.0); Mean Corp Hgb Conc 32.9 g/gl (32-36); Mean Corpuscular Hgb 29.6 pg (27.0-32.0); Mean Platelet Vol. 9.5 fl (6.2-12.0); Monocyte# 0.51 X10^3/uL; Monocyte% 4.8 % (0-10); Neutrophil # 8.64 X10^3/uL (2.7-7.7); Neutrophil % 81.8 % (47-70); Platelet Count 284 K/mm3 (150-450); RBC Distribution Width CV 13.7 % (11.6-14.6); RBC Distribution Width SD 45.1 fl (35.1-43.9); Red Blood Count 4.32 M/mm3 (4.2-5.4); White Blood Count 10.6 K/mm3 (4.4-11.0)
[2019-01-10 08:31] LABS: ACT Activated Clotting Time 114 sec (74-137)
[2019-01-10 08:32] LABS: POSITIVE COUNT NO; POSITIVE DIFFERENTIAL NO; POSITIVE MORPHOLOGY NO
[2019-01-10 08:43] LABS: Anion Gap 9 (5-15); BUN 23 mg/dL (7-18); BUN/Creat Ratio 34.7 RATIO (10-20); Calcium,Total 7.5 mg/dL (8.5-10.1); Chloride 110 mmol/L (98-107); Creatinine, Serum 0.66 mg/dL (0.55-1.02); EST Glomerular Filtration Rate 96 mL/min (>60); Est Glom Filt Rate - Afr Amer 116 mL/min (>60); Glucose 122 mg/dL (74-106); Potassium 3.9 mmol/L (3.5-5.1); Sodium Level 143 mmol/L (136-145)
--- NOTE | 2019-01-10 09:09 | PN_ITS ---
Patient Problems: Active and Suspected Problems ST elevation myocardial infarction (STEMI) (Acute) Subjective: The patient was admitted in ICU after emergent heart cath for STEMI. Patient is tired but he states she still feels mild chest discomfort. Patient does not like to answer much but wants to rest. Patient had previous stent about 6 or ago and did not had serious cardiac event until this time. Has a right femoral artery sheath. Vitals/I&O's: Vital Signs Temp Pulse Resp BP Pulse Ox 98.1 F 92 16 105/75 100 01/10/19 05:00 01/10/19 06:00 01/10/19 06:00 01/10/19 06:00 01/10/19 06:00 Oxygen Flow Rate (L/min) 2 Oxygen Delivery Method Nasal Cannula Weight: 164 lb 10.965 oz Body Mass Index (BMI) 28.3 Intake and Output for Last 24 Hours 01/08/19 01/09/19 01/10/19 23:59 23:59 23:59 Intake Total 221.7 / 221.7 Output Total 800 / 800 Balance -578.3 / -578.3 General: Alert, Oriented x3, Cooperative HEENT: Atraumatic, PERRLA, EOMI, Normocephalic Neck: Supple, No JVD, Negative Carotid Bruits Lungs: Clear to auscultation, Normal air movement, No rhonchi, No wheeze, No rales Cardiovascular: Regular rate, Regular Rhythm, Normal S1, Normal S2, No murmurs Abdomen: Bowel Sounds Present, Soft, Non Tender, Non-Distended Extremities: No edema, Capillary Refill Less than 3 Seconds Skin: No rashes, No breakdown, - - Right groin femoral artery sheath. Musculoskeletal: No Tenderness to Palpation of Joints or Extremities, Arthritic Changes Lymphatic: No Cervical, Supraclavicular, or Inguinal Adenopathy Neurological: Cranial nerves II-XII grossly intact, Deep Tendon Reflexes 2+/4 and Symmetrical, Neuro grossly intact Psych/Mental Status: Normal Affect, Appropriate Laboratory Results 01/10/19 01:15: WBC 12.1 H, RBC 4.53, Hgb 13.4, Hct 40.7, MCV 89.8, MCH 29.6, MCHC 32.9, RDW 13.5, RDW Differential 44.4 H, Plt Count 311, MPV 9.5, Immature Gran % (Auto) 0.200, Neut % (Auto) 34.8 L, Lymph % (Auto) 52.8 H, Miner % (Auto) 8.7, Eos % (Auto) 3.1, Baso % (Auto) 0.4, Absolute Neuts (auto) 4.2, Absolute Lymphs (auto) 6.38 H, Total Counted Not Reportable 01/10/19 01:15: PT 14.0, INR 1.1, APTT > 250.0 H* 01/10/19 01:15: Sodium 139, Potassium 3.2 L, Chloride 106, Carbon Dioxide 24.0, Anion Gap 9, BUN 26 H, Creatinine 1.12 H, Estim Creat Clear Calc 47.46, Est GFR (MDRD) Af Amer 63, Est GFR (MDRD) Non-Af 52 L, BUN/Creatinine Ratio 23.2 H, Glucose 177 H, Calcium 8.4 L, Troponin I 0.054 H 01/10/19 01:15: Serum , Qual Cancelled 01/10/19 01:37: Activated Clotting Time 169 H 01/10/19 02:03: Activated Clotting Time 235 H 01/10/19 03:00: Activated Clotting Time 241 H 01/10/19 03:52: Triglycerides 58, Cholesterol 201 H, LDL Cholesterol 141 H, VLDL Cholesterol 12, HDL Cholesterol 48 01/10/19 03:52: Troponin I 10.700 H* 01/10/19 08:19: Activated Clotting Time 114 01/10/19 08:20: Troponin I Pending 01/10/19 08:20: WBC 10.6, RBC 4.32, Hgb 12.8, Hct 38.9, MCV 90.0, MCH 29.6, MCHC 32.9, RDW 13.7, RDW Differential 45.1 H, Plt Count 284, MPV 9.5, Immature Gran % (Auto) 0.100, Neut % (Auto) 81.8 H, Lymph % (Auto) 13.0 L, Miner % (Auto) 4.8, Eos % (Auto) 0.1, Baso % (Auto) 0.2, Absolute Neuts (auto) 8.6 H, Absolute Lymphs (auto) 1.37, Total Counted Not Reportable 01/10/19 08:20: Sodium 143, Potassium 3.9, Chloride 110 H, Carbon Dioxide 24.0, Anion Gap 9, BUN 23 H, Creatinine 0.66, Estim Creat Clear Calc 77.30, Est GFR (MDRD) Af Amer 116, Est GFR (MDRD) Non-Af 96, BUN/Creatinine Ratio 34.7 H, Glucose 122 H, Calcium 7.5 L Current Medications Acetaminophen (Tylenol) 650 mg PO Q6H PRN PRN PRN Reason: Mild Pain (1-3)/Temp > 100.7 F Aspirin (Ecotrin) 81 mg PO DAILY@0800 [facility] Atorvastatin Calcium (Lipitor) 80 mg PO QHS [facility] Atropine Sulfate () 0.5 mg IV UD PRN PRN Reason: HR <50 bpm Dextrose (D50w Syringe) 0 gm IV X1 PRN; Protocol PRN Reason: Hypoglycemia Diazepam (Valium) 5 mg PO Q6H PRN PRN PRN Reason: BACK SPASMS/ANXIETY Glucagon () 1 mg IM .X1 PRN PRN Reason: Hypoglycemia Heparin Sodium (Beef Lung) (Heparin 500 Unit/5 Ml (100/Ml)) 500 unit IV UD PRN PRN Reason: HEPARIN FLUSH Sodium Chloride () 250 mls @ 15 mls/hr IV .[id number] PRN PRN Reason: SALINE FLUSH Sodium Chloride () 1,000 mls @ 150 mls/hr IV .Q6H40M [facility] Stop: 01/10/19 10:13 Last Admin: 01/10/19 03:30 Dose: 150 mls/hr Documented by: Nitroglycerin/Dextrose () 250 mls @ 3 mls/hr IV .[id number] [facility] Last Admin: 01/10/19 04:37 Dose: Not Given Documented by: Eptifibatide (Integrilin) 75 mg in 100 mls @ 12.736 mls/hr CONT INF .Q7H52M [facility] Last Admin: 01/10/19 03:35 Dose: 12.736 mls/hr Documented by: Labetalol HCl (Trandate) 5 mg IV X1 PRN PRN Reason: SBP > 160 when pulling sheath Losartan Potassium (Cozaar) 12.5 mg PO DAILY [facility] Metoprolol Tartrate (Lopressor (Beta Lorraine)) 12.5 mg PO BID [facility] Morphine Sulfate () 2 mg IV Q4H PRN PRN PRN Reason: Mild back pain (0-2/10) Nitroglycerin (Nitrostat) 0.4 mg SUBLINGUAL Q5M PRN PRN Reason: CARDIAC/CHEST PAIN Ondansetron HCl (Zofran) 4 mg IV Q6H PRN PRN PRN Reason: NAUSEA/VOMITING Last Admin: 01/10/19 04:00 Dose: 4 mg Documented by: Sodium Chloride () 10 - 40 ml IV UD PRN PRN Reason: SALINE FLUSH Last Admin: 01/10/19 04:55 Dose: 10 ml Documented by: Sodium Chloride () 500 ml IV BOLUS PRN PRN Reason: VASO-VAGAL PROTOCOL Ticagrelor (Brilinta) 90 mg PO BID [facility] Medical Necessity - Tobacco Use Smoking Status: Current every day smoker Assessment/Plan All Active Problems ST elevation myocardial infarction (STEMI) (Acute) The patient is a 63 year old F with a significant history of hypertension; active smoker; CAD status post 2 stents 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 Patient had chest pain substernal, excruciating 10/10 for 45 minutes prior to coming to ED. Chest pain radiated to upper back. Found to have elevated ST elevation inferior leads with reciprocal T wave inversions. Patient also dropped blood pressure into the 90s and heart rate dropped into 30s and received IV normal saline bolus, 1 mg atropine and was taken to Label Maker immediately. 1. Inferior wall ST elevation NE: Patient is being admitted in ICU after emergent cath acute in-stent thrombosis after initial angioplasty and stenting of proximal RCA. Was found to have single-vessel RCA with proximal upstream occlusion of his stent. This was balloon and stented but patient again developed chest pain and ST elevation after completion of procedure but before leaving the [facility] and thereafter emergent cath showed acute in-stent thrombosis patient was put on IV Integrilin, underwent emergent angioplasty, thrombectomy and additional posterior dilatation. After that, patient had widely patent RCA with excellent distal DEMOND score. CXR showed hyper inflation without any acute cardiopulmonary process. 2D echo which is scheduled for later today. 2. Chronic tobacco Abuse: Smoking cessation advised. Site Auditor when appropriate. 3. Dyslipidemia: Fasting profile shows LDL 141, HDL 48, total cholesterol 201. TG 58. On atorvastatin. DVT as per protocol of STEMI. Patient has femoral sheath which is going to be removed soon. Laboratory Results 01/10/19 01:15: WBC 12.1 H, RBC 4.53, Hgb 13.4, Hct 40.7, MCV 89.8, MCH 29.6, MCHC 32.9, RDW 13.5, RDW Differential 44.4 H, Plt Count 311, MPV 9.5, Immature Gran % (Auto) 0.200, Neut % (Auto) 34.8 L, Lymph % (Auto) 52.8 H, Miner % (Auto) 8.7, Eos % (Auto) 3.1, Baso % (Auto) 0.4, Absolute Neuts (auto) 4.2, Absolute Lymphs (auto) 6.38 H, Total Counted Not Reportable 01/10/19 01:15: PT 14.0, INR 1.1, APTT > 250.0 H* 01/10/19 01:15: Sodium 139, Potassium 3.2 L, Chloride 106, Carbon Dioxide 24.0, Anion Gap 9, BUN 26 H, Creatinine 1.12 H, Estim Creat Clear Calc 47.46, Est GFR (MDRD) Af Amer 63, Est GFR (MDRD) Non-Af 52 L, BUN/Creatinine Ratio 23.2 H, Glucose 177 H, Calcium 8.4 L, Troponin I 0.054 H 01/10/19 08:20: WBC 10.6, RBC 4.32, Hgb 12.8, Hct 38.9, MCV 90.0, MCH 29.6, MCHC 32.9, RDW 13.7, RDW Differential 45.1 H, Plt Count 284, MPV 9.5, Immature Gran % (Auto) 0.100, Neut % (Auto) 81.8 H, Lymph % (Auto) 13.0 L, Miner % (Auto) 4.8, Eos % (Auto) 0.1, Baso % (Auto) 0.2, Absolute Neuts (auto) 8.6 H, Absolute Lymphs (auto) 1.37, Total Counted Not Reportable 01/10/19 08:20: Sodium 143, Potassium 3.9, Chloride 110 H, Carbon Dioxide 24.0, Anion Gap 9, BUN 23 H, Creatinine 0.66, Estim Creat Clear Calc 77.30, Est GFR (MDRD) Af Amer 116, Est GFR (MDRD) Non-Af 96, BUN/Creatinine Ratio 34.7 H, Glucose 122 H, Calcium 7.5 L Clinical Impression(s) from Imaging Studies Chest X-Ray 01/10/19 01:12 IMPRESSION: Chronic interestitial changes. No radiographic evidence of acute cardiopulmonary disease.
--- NOTE | 2019-01-10 10:06 | CRPHASE1 ---
Patient Communication PHII Cardiac Rehab Discussed with Patient:: Yes Guide to Cardiac Rehab Given to Patient:: Yes Cardiac Rehab Facility Choice List Given to Patient:: Yes - [facility] Choice Program [facility] CR PHII:: Communication Given to CR, Refer to [facility] Cement Gun Operator:: Tristen Mchugh Sessions:: 36 sessions - 3 days/wk, 12 weeks Risk Factors/Lifestyle Smoking Status: Current every day smoker Packs Smoked per Day: 2 Hx Hypertension: Yes - ON MEDS Height: 1.65 m Weight:: 79.6 kg BMI: 29.2 Stress: Long-standing ETOH: No Caffeine: Yes Substance Abuse: No Risk Factor for Sedentary Lifestyle: Moderate Risk Family History: Heart Disease, Hypertension, Pulmonary Disease Past Cardiac Illness: Coronary Artery Disease, Myocardial Infarction, Previous PCI w/Stent Laboratory Values: Cardiac Rehab Phase I Labs Triglycerides 58 mg/dL (-199) 01/10/19 03:52 Cholesterol 201 mg/dL (200) H 01/10/19 03:52 141 mg/dL (0-130) H 01/10/19 03:52 48 mg/dL (40-) 01/10/19 03:52 Phase I Education Given On:: [place], Nutrition, Smoking cessation Knowledge of Condition:: Yes Hospital Course Pain Description: Sharp, Burning Pain Intensity: 7 Cardiac Cath Date:: 01/10/19 Medical/Surgical History DE:: Yes Angina:: Yes COPD:: Yes Hypertension:: Yes - ON MEDS PTCA:: Yes - 7-8 YRS AGO Discharge/Home/Social Eval Discharge Disposition: Home Marital Status: - Cardiac Rehabilitation Info Cardiac Rehabilitation Program Information: Cardiac Rehabilitation is important for patients like you who are recovering from a heart problem. Cardiac rehabilitation programs are recognized as integral to the continued care of the patient with coronary heart disease. The cardiac rehabilitation program is designed to optimize a patient's physical, psychological, and social functioning. Health clinical care coordinator work in cardiac rehabilitation programs and assist you with getting the treatments you need to get stronger and healthier - like exercise, healthy eating habits, and medications. Cardiac rehabilitation has been show to help people with heart problems live longer and have better life enjoyment than people who do not go to cardiac rehabilitation. Please contact the Cardiac Rehabilitation Program at [facility] at in two weeks if you have not heard from them.
--- NOTE | 2019-01-10 10:10 | CRPH1.INSTRU ---
General Education CAD and cardiac anatomy and function:: Patient communicates acknowledgment Explanation of diagnoses and procedures:: Patient communicates acknowledgment Sign/Symptoms of NV:: Patient communicates acknowledgment Antiplatelet therapy: Not instructed Proper use of NTG-SL: Not instructed Emergency procedures and activation of EMS: Patient communicates acknowledgment Compliance of all prescribed medications: Not instructed Smoking Patient Nicotine/Smoking Risk Factors Are:: Cigarettes Nicotine/Smoking Response Code:: Patient communicates acknowledgment - TALKED TO HER ABOUT SMOKING CESSATION Dyslipidemia Recommendations Include:: Lipid profile not available Dyslipidemia Response Code:: Patient communicates acknowledgment Overweight/Obesity Patient Overweight/Obesity Risk Factors Are:: Overweight = 26-29 Overweight/Obesity:: Patient communicates acknowledgment Hypertension Hypertension:: Patient communicates acknowledgment - ON MEDS Heart Disease Patient Heart Disease Risk Factors Are:: Previous cardiac event Heart Disease Response Code:: Patient communicates acknowledgment Diabetes Patient Diabetes Risk Factors Are:: No documented hx of diabetes Metabolic Syndrome Patient Metabolic Syndrome Risk Factors Are [3 of 5]:: Hypertension Metabolic Syndrome Response Code:: Patient communicates acknowledgment Sedentary Recommendations Include:: Monitored Outpatient Cardiac Rehab Sedentary Response Code:: Patient communicates acknowledgment - 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
[2019-01-10] MEDS: Aspirin E.C. 81 MG Tablet PO (10:23)
[2019-01-10] MEDS: Losartan Potassium 25 MG Tablet 12.5 MG PO (10:23)
[2019-01-10] MEDS: Metoprolol Tartrate 25 MG Tablet 12.5 MG PO (10:24)
[2019-01-10] MEDS: TICAGRELOR 90 MG TABLET PO ×2 (10:25→20:46)
[2019-01-10] MEDS: diazePAM 5 MG Tablet PO ×2 (10:33→20:44)
--- NOTE | 2019-01-10 11:06 | PN_ITS ---
Progress Note Patient is scheduled for a post hospital follow-up with Edilia Licona Physician Bag Shop Worker, on February 08, 2019 at 3:00 PM at the [facility] Office.
[2019-01-10] MEDS: Morphine 2 MG/ML Syringe IV ×3 (11:30→19:41)
--- NOTE | 2019-01-10 15:37 | CASEMGMT ---
RN CM Assessment Presentation: STEMI, PCI Proximal RCA Intro role of CM and purpose of RN CM assessment. Demographics, PCP and Pharmacy verified. PCP: Dr. Cummins Specialists: Dr. Mchugh Preferred Pharmacy: Insurance: anthem Prescription Benefit: yes, LNOK: [facility] Boyle DME: none Transporation: Drives or family can assist. Living arrangements: Lives independently with spouse. No care needs identified. DC PLAN: Home on discharge. Nicholas BUSTILLO RN ACM
[2019-01-10] MEDS: Metoprolol Tartrate 25 MG Tablet PO (20:44)
[2019-01-10] MEDS: Atorvastatin Calcium 80 MG Tablet PO (20:46)
[2019-01-10] MEDS: QUEtiapine 25 MG Tablet PO (23:57)
[2019-01-11] VITALS (25 sets, daily range): BP systolic 95–151; BP diastolic 43–104; PULSE 62–95; RESP 12–26; TEMP 36.5–37.1; O2SAT 90–99
[2019-01-11 06:06] LABS: Hematocrit 36.5 % (37-47); Hemoglobin 11.7 g/dl (12.0-15.0); Mean Corp Hgb Conc 32.1 g/gl (32-36); Mean Corpuscular Hgb 29.3 pg (27.0-32.0); Mean Corpuscular Volume 91.3 fL (81-99); Mean Platelet Vol. 10.1 fl (6.2-12.0); Platelet Count 272 K/mm3 (150-450); RBC Distribution Width CV 13.8 % (11.6-14.6); RBC Distribution Width SD 45.7 fl (35.1-43.9); White Blood Count 9.3 K/mm3 (4.4-11.0)
[2019-01-11 06:24] LABS: BUN 16 mg/dL (7-18); Creatinine, Serum 0.68 mg/dL (0.55-1.02); Glucose 99 mg/dL (74-106)
[2019-01-11 06:25] LABS: Anion Gap 6 (5-15); BUN/Creat Ratio 23.6 RATIO (10-20); Calcium,Total 8.1 mg/dL (8.5-10.1); Chloride 110 mmol/L (98-107); EST Glomerular Filtration Rate 94 mL/min (>60); Est Glom Filt Rate - Afr Amer 113 mL/min (>60); Estimated Creatinine Clearance 75.02 ml/min; Potassium 3.7 mmol/L (3.5-5.1); Sodium Level 142 mmol/L (136-145)
[2019-01-11 06:29] LABS: Scan Indicated on CBC? Y/N NO
[2019-01-11] MEDS: Aspirin E.C. 81 MG Tablet PO (08:49)
[2019-01-11] MEDS: TICAGRELOR 90 MG TABLET PO ×2 (08:49→21:40)
[2019-01-11] MEDS: Losartan Potassium 25 MG Tablet PO (08:49)
[2019-01-11] MEDS: Metoprolol Tartrate 25 MG Tablet PO ×2 (08:49→21:40)
--- NOTE | 2019-01-11 10:00 | EKG12_ITS ---
Test Reason : STEMI Blood Pressure : / mmHG Vent. Rate : 075 BPM Atrial Rate : 091 BPM P-R Int : 274 ms QRS Dur : 090 ms QT Int : 414 ms P-R-T Axes : 067 077 104 degrees QTc Int : 462 ms Sinus rhythm with marked sinus arrhythmia with 1st degree A-V block ST elevation consider inferior injury or acute infarct ACUTE [place] / STEMI Consider right ventricular involvement in acute inferior infarct Abnormal ECG When compared with ECG of 28-SEP-2017 16:59, Significant changes have occurred Confirmed by BRENNAN LYNNE, LYRIC ([id number]), assignment desk editor ADAMARIS SAINZ ([id number]) on 01/19/2019 12:38:00 PM Referred By: Tristen Mchugh Confirmed By:JUANPABLO AMIN MD
--- NOTE | 2019-01-11 10:26 | PN.CARD_ITS ---
Subjectve: The patient states she is feeling better overall. She has not been up and ambulating as of yet. She is anxious to be discharged home. Objective: Vital Signs Temp Pulse Resp BP Pulse Ox 98.3 F 85 12 95/55 L 97 01/11/19 04:00 01/11/19 08:49 01/11/19 06:00 01/11/19 06:00 01/11/19 06:40 Oxygen Flow Rate (L/min) 2 Oxygen Delivery Method Room Air Weight: 175 lb 7.807 oz Body Mass Index (BMI) 28.3 Intake and Output for Last 24 Hours 01/09/19 01/10/19 01/11/19 23:59 23:59 23:59 Intake Total 1572.7 / 1812.7 480 / 480 Output Total 1400 / 1550 550 / 550 Balance 172.7 / 262.7 -70 / -70 General: Awake, Alert, Oriented x 3, Cooperative, No Acute Distress HEENT: Atraumatic, Normocephalic, PERRL, EOMI, Sclera Non Icteric Oral: Moist Mucosa Neck: Supple, Good ROM, No JVD Lungs: Inspiratory Wheezes-Left Cardiovascular: Regular Rhythm, Normal S1, Normal S2 Vascular: Normal Femoral Pulses Abdomen: Bowel Sounds Present, Soft, Non Tender Extremities: No edema Neurological: No Focal Motor or Sensory Deficit Psych/Mental Status: Appropriate 01/11/19 05:10: WBC 9.3, RBC 4.00 L, Hgb 11.7 L, Hct 36.5 L, MCV 91.3, MCH 29.3, MCHC 32.1, RDW 13.8, RDW Differential 45.7 H, Plt Count 272, MPV 10.1 01/11/19 05:10: Sodium 142, Potassium 3.7, Chloride 110 H, Carbon Dioxide 26.0, Anion Gap 6, BUN 16, Creatinine 0.68, Est GFR (MDRD) Af Amer 113, Est GFR (MDRD) Non-Af 94, BUN/Creatinine Ratio 23.6 H, Glucose 99, Calcium 8.1 L Rhythm: Sinus rhythm EKG: Sinus rhythm/sinus bradycardia; T wave [id number] with myocardial ischemia ECHO: Interpretation Summary The estimated ejection fraction is 60 %. Stage 1 diastolic dysfunction. Posterior-Basal: Mildly hypokinetic Unable to estimate RV systolic pressure due to insufficient tricuspid regurgitant envelope. Compared to echo report dated 09/29/2017, LV function is preserved with new mild proximal posterior hypokinesis. Medical Necessity - Tobacco Use Smoking Status: Current every day smoker Assessment/Plan 1. Acute inferior myocardial infarction: STEMI At the present time the patient appears to be recuperating from her event. As noted she underwent diagnostic cardiac catheterization and PCI with subsequent acute in-stent restenosis requiring repeat PCI. She continues to be monitored. Her electrocardiographic findings and echocardiographic findings are as noted above. She will continue medical management. She will be considered for transfer to the PCU for continued cardiac telemetry monitoring as she is asked to be up and out of bed and ambulating. She will need continued outpatient evaluation, following future discharge, which will include outpatient cardiac rehabilitation. 2. Hyperlipidemia The patient does need to continue risk factor evaluation and care with adjustment of medications as deemed appropriate. 3. Hypertension The patient's blood pressure will be followed. Her medications can be adjusted as needed. Comment: The above was discussed and reviewed with the patient and Dr. Arreaga. This note was generated with [employer] dictation software. It may contain incorrect words, spelling, and punctuation that were not noted in checking the note before signing.
--- NOTE | 2019-01-11 10:39 | PCM.PN.HOSP ---
Patient Problems: Active and Suspected Problems (Last Updated 01/10/19 @ 11:55 by Darcy Knowles) ST elevation myocardial infarction (STEMI) (Acute) Subjective: The patient wanted to go home today. Patient did not have any further chest pain or shortness of breath, irregular heartbeat/arrhythmia after she came to ICU. Telemetry strips were reviewed. It shows T wave inversion in lead II. Serial EKGs were reviewed. Earlier, she had inferior wall KS, STEMI with ST elevation 3 mm. Repeat EKG after Engineering Specialist about 5 AM on [address] elevation with upright T waves inferior leads. Repeat EKG today about 5 AM shows sinus bradycardia at [address] elevation and T wave inversion in inferior leads. Vitals/I&O's: Vital Signs Temp Pulse Resp BP Pulse Ox 97.7 F L 72 20 H 126/99 H 95 01/11/19 08:00 01/11/19 09:00 01/11/19 09:00 01/11/19 09:00 01/11/19 09:00 Oxygen Flow Rate (L/min) 2 Oxygen Delivery Method Room Air Weight: 175 lb 7.807 oz Body Mass Index (BMI) 28.3 Intake and Output for Last 24 Hours 01/09/19 01/10/19 01/11/19 23:59 23:59 23:59 Intake Total 1572.7 / 1812.7 480 / 480 Output Total 1400 / 1550 550 / 550 Balance 172.7 / 262.7 -70 / -70 General: Alert, Oriented x3, Cooperative HEENT: Atraumatic, PERRLA, EOMI, Normocephalic Neck: Supple, No JVD, Negative Carotid Bruits Lungs: Clear to auscultation, Normal air movement Cardiovascular: Regular rate, Normal S1, Normal S2, No murmurs Abdomen: Bowel Sounds Present, Soft, Non Tender, Non-Distended Extremities: No edema, Capillary Refill Less than 3 Seconds Skin: No rashes, No breakdown, Rash Present - Mild bruise over right groin cardiac cath exit site. No active bleeding Musculoskeletal: No Tenderness to Palpation of Joints or Extremities Neurological: Cranial nerves II-XII grossly intact Psych/Mental Status: Normal Affect, Appropriate Laboratory Results 01/11/19 05:10: WBC 9.3, RBC 4.00 L, Hgb 11.7 L, Hct 36.5 L, MCV 91.3, MCH 29.3, MCHC 32.1, RDW 13.8, RDW Differential 45.7 H, Plt Count 272, MPV 10.1 01/11/19 05:10: Sodium 142, Potassium 3.7, Chloride 110 H, Carbon Dioxide 26.0, Anion Gap 6, BUN 16, Creatinine 0.68, Estim Creat Clear Calc 75.02, Est GFR (MDRD) Af Amer 113, Est GFR (MDRD) Non-Af 94, BUN/Creatinine Ratio 23.6 H, Glucose 99, Calcium 8.1 L Current Medications Acetaminophen (Tylenol) 650 mg PO Q6H PRN PRN PRN Reason: Mild Pain (1-3)/Temp > 100.7 F Aspirin (Ecotrin) 81 mg PO DAILY@0800 [facility] Last Admin: 01/11/19 08:49 Dose: 81 mg Documented by: Atorvastatin Calcium (Lipitor) 80 mg PO QHS [facility] Last Admin: 01/10/19 20:46 Dose: 80 mg Documented by: Atropine Sulfate () 0.5 mg IV UD PRN PRN Reason: HR <50 bpm Dextrose (D50w Syringe) 0 gm IV X1 PRN; Protocol PRN Reason: Hypoglycemia Diazepam (Valium) 5 mg PO Q6H PRN PRN PRN Reason: BACK SPASMS/ANXIETY Last Admin: 01/10/19 20:44 Dose: 5 mg Documented by: Glucagon () 1 mg IM .X1 PRN PRN Reason: Hypoglycemia Heparin Sodium (Beef Lung) (Heparin 500 Unit/5 Ml (100/Ml)) 500 unit IV UD PRN PRN Reason: HEPARIN FLUSH Sodium Chloride () 250 mls @ 15 mls/hr IV .[id number] PRN PRN Reason: SALINE FLUSH Nitroglycerin/Dextrose () 250 mls @ 3 mls/hr IV .[id number] [facility] Last Admin: 01/10/19 04:37 Dose: Not Given Documented by: Labetalol HCl (Trandate) 5 mg IV X1 PRN PRN Reason: SBP > 160 when pulling sheath Losartan Potassium (Cozaar) 25 mg PO DAILY [facility] Last Admin: 01/11/19 08:49 Dose: 25 mg Documented by: Metoprolol Tartrate (Lopressor (Beta Lorraine)) 25 mg PO BID [facility] Last Admin: 01/11/19 08:49 Dose: 25 mg Documented by: Morphine Sulfate () 2 mg IV Q4H PRN PRN PRN Reason: Mild back pain (0-2/10) Last Admin: 01/10/19 19:41 Dose: 2 mg Documented by: Nitroglycerin (Nitrostat) 0.4 mg SUBLINGUAL Q5M PRN PRN Reason: CARDIAC/CHEST PAIN Ondansetron HCl (Zofran) 4 mg IV Q6H PRN PRN PRN Reason: NAUSEA/VOMITING Last Admin: 01/10/19 19:07 Dose: 4 mg Documented by: Quetiapine Fumarate (Seroquel) 25 mg PO QHS PRN PRN Reason: ANXIETY/INSOMNIA Last Admin: 01/10/19 23:57 Dose: 25 mg Documented by: Sodium Chloride () 10 - 40 ml IV UD PRN PRN Reason: SALINE FLUSH Last Admin: 01/10/19 19:41 Dose: 10 ml Documented by: Sodium Chloride () 500 ml IV BOLUS PRN PRN Reason: VASO-VAGAL PROTOCOL Ticagrelor (Brilinta) 90 mg PO BID [facility] Last Admin: 01/11/19 08:49 Dose: 90 mg Documented by: Medical Necessity - Tobacco Use Smoking Status: Current every day smoker Assessment/Plan All Active Problems (Last Updated 01/10/19 @ 11:55 by Darcy Knowles) ST elevation myocardial infarction (STEMI) (Acute) The patient is a 63 year old F with a significant history of hypertension; active smoker; CAD status post 2 stents was admitted focuser after inferior wall STEMI found in ER. Patient had chest pain substernal, excruciating 10/10 for 45 minutes prior to coming to ED. Chest pain radiated to upper back. Found to have elevated ST elevation inferior leads with reciprocal T wave inversions. Patient also dropped blood pressure into the 90s and heart rate dropped into 30s and received IV normal saline bolus, 1 mg atropine and was taken to Engineering Specialist immediately. 1. Inferior wall ST elevation KS with acute in-stent thrombosis after initial PCI of proximal RCA: Patient was admitted in ICU after emergent cath acute in-stent thrombosis after initial angioplasty and stenting of proximal RCA. Was found to have single-vessel RCA with proximal upstream occlusion of his stent. This was balloon and stented but patient again developed chest pain and ST elevation after completion of procedure but before leaving the Engineering Specialist and thereafter emergent cath showed acute in-stent thrombosis patient was put on IV Integrilin, underwent emergent angioplasty, thrombectomy and additional posterior dilatation. After that, patient had widely patent RCA with excellent distal DEMOND score. CXR showed hyper inflation without any acute cardiopulmonary process. 01/11/2019: 2D echo done. Echo shows EF 60% with stage I diastolic dysfunction. Posterior basal mildly hypokinetic. Normal RV size and systolic function. No significant valvular abnormality. As compared to previous echo September 2017, LV function is preserved with new mild proximal posterior hypokinesis. Patient has inferior lead T wave inversion probably dynamic expected changes after a STEMI with reperfusion. The sheath was removed on 01/10/2019. The patient is being transferred to PCU. Beltran catheter removed. 2. Chronic tobacco Abuse: Smoking cessation advised. Jailer when appropriate. 3. Dyslipidemia: Fasting profile shows LDL 141, HDL 48, total cholesterol 201. TG 58. On atorvastatin 80 mg daily. Laboratory Results 01/11/19 05:10: WBC 9.3, RBC 4.00 L, Hgb 11.7 L, Hct 36.5 L, MCV 91.3, MCH 29.3, MCHC 32.1, RDW 13.8, RDW Differential 45.7 H, Plt Count 272, MPV 10.1 01/11/19 05:10: Sodium 142, Potassium 3.7, Chloride 110 H, Carbon Dioxide 26.0, Anion Gap 6, BUN 16, Creatinine 0.68, Estim Creat Clear Calc 75.02, Est GFR (MDRD) Af Amer 113, Est GFR (MDRD) Non-Af 94, BUN/Creatinine Ratio 23.6 H, Glucose 99, Calcium 8.1 L Clinical Impression(s) from Imaging Studies Chest X-Ray 01/10/19 01:12 IMPRESSION: Chronic interestitial changes. No radiographic evidence of acute cardiopulmonary disease. Code Visit Inpatient E&M: 59555 Subs Hosp L3
[2019-01-11] MEDS: Morphine 2 MG/ML Syringe IV (20:54)
[2019-01-11] MEDS: Atorvastatin Calcium 80 MG Tablet PO (21:40)
[2019-01-11] MEDS: diazePAM 5 MG Tablet PO (21:40)
[2019-01-12 03:00] VITALS: PULSE 67
[2019-01-12 03:30] VITALS: BP 128/78; PULSE 73; RESP 18; TEMP 37.2; O2SAT 98
[2019-01-12 06:07] LABS: Absolute Lymphocyte Count 2.63 X10^3/ul (0.83-4.51); Absolute Neutrophil Count 5.4 X10^3/uL (2.0-7.7); Basophil# 0.05 X10^3/uL; Basophil% 0.5 % (0-1); Eosinophil# 0.29 X10^3/uL; Eosinophils% 3.2 % (0-5); Hematocrit 36.1 % (37-47); Hemoglobin 11.6 g/dl (12.0-15.0); Lymphocyte # 2.63 X10^3/ul (4.0); Lymphocyte % 28.6 % (19-41); Mean Corp Hgb Conc 32.1 g/gl (32-36); Mean Corpuscular Volume 90.3 fL (81-99); Mean Platelet Vol. 10.6 fl (6.2-12.0); Monocyte# 0.83 X10^3/uL; Neutrophil # 5.37 X10^3/uL (2.7-7.7); Neutrophil % 58.5 % (47-70); Platelet Count 250 K/mm3 (150-450); RBC Distribution Width CV 13.5 % (11.6-14.6); White Blood Count 9.2 K/mm3 (4.4-11.0)
[2019-01-12 06:08] LABS: POSITIVE COUNT NO; POSITIVE DIFFERENTIAL NO; POSITIVE MORPHOLOGY NO
[2019-01-12 06:27] LABS: Anion Gap 7 (5-15); BUN 17 mg/dL (7-18); BUN/Creat Ratio 25.2 RATIO (10-20); Chloride 110 mmol/L (98-107); Creatinine, Serum 0.68 mg/dL (0.55-1.02); EST Glomerular Filtration Rate 94 mL/min (>60); Est Glom Filt Rate - Afr Amer 114 mL/min (>60); Estimated Creatinine Clearance 75.02 ml/min; Glucose 94 mg/dL (74-106); Potassium 3.9 mmol/L (3.5-5.1); Sodium Level 142 mmol/L (136-145)
[2019-01-12 07:07] VITALS: PULSE 66
[2019-01-12 07:33] VITALS: PULSE 88
[2019-01-12] MEDS: Losartan Potassium 25 MG Tablet PO (07:33)
[2019-01-12] MEDS: TICAGRELOR 90 MG TABLET PO (07:33)
[2019-01-12] MEDS: Aspirin E.C. 81 MG Tablet PO (07:33)
[2019-01-12] MEDS: Metoprolol Tartrate 25 MG Tablet PO (07:33)
[2019-01-12] MEDS: 0.9% NaCl Peripheral Flush Adult/Peds IV (07:35)
[2019-01-12 08:02] VITALS: O2SAT 97
[2019-01-12 08:10] VITALS: BP 130/71; PULSE 66; RESP 16; TEMP 36.9; O2SAT 95
--- NOTE | 2019-01-12 09:08 | ADUL_ITS ---
Reason For Study: groin tenderness/eval for pseudo Right Velocities Left Velocities Common Femoral Artery, prox = 165.9 cm./sec. Common Femoral Artery, mid = 185.7 cm./sec. PROPOSAL MANAGER WRITER measures .63 x .64 cm. PROPOSAL MANAGER WRITER measures .54 x .51 cm. CFV is compressible with normal venous flow CFV is compressible with normal venous flow patterns. patterns. Interpretation Summary Normal common femoral arteries bilaterally without evidence for pseudo aneurysm or fistula bilaterally Ordering Physician: Tristen Mchugh Performed By: Thomas Solis RVT
--- NOTE | 2019-01-12 09:10 | PN.CARD_ITS ---
Subjectve: Patient doing well this morning, apparently got out of bed on her own on the evening after her STEMI, as she was unable to lay down and sleep in a bed and wanted to sleep in a chair. This is despite the encouragement of the nurse in the ICU. This morning the patient denies any chest pain or angina and her telemetry shows normal sinus rhythm. Her right groin however does show some point tenderness, but I hear no femoral bruits. She does have significant ecchymosis on the lateral and medial portions of her right lower thigh. This ecchymotic area is soft, nontender. Peak troponin of 44. Hemoglobin and creatinine are within nominal limits. Objective: Vital Signs Temp Pulse Resp BP Pulse Ox 98.5 F 66 16 130/71 H 95 01/12/19 08:10 01/12/19 08:10 01/12/19 08:10 01/12/19 08:10 01/12/19 08:10 Oxygen Flow Rate (L/min) 2 Oxygen Delivery Method Room Air Weight: 164 lb 3.91 oz Body Mass Index (BMI) 28.3 Intake and Output for Last 24 Hours 01/10/19 01/11/19 01/12/19 23:59 23:59 23:59 Intake Total 1572.7 / 1812.7 1320 / 1320 120 / 120 Output Total 1400 / 1550 650 / 650 Balance 172.7 / 262.7 670 / 670 120 / 120 General: Awake, Alert, Oriented x 3 HEENT: PERRL, EOMI, Sclera Non Icteric Neck: Supple, Good ROM, No Lymph Node Enlargement Lungs: Clear to auscultation Cardiovascular: Regular Rhythm, Normal S1, Normal S2, No Murmurs, No Rubs, No Gallops Vascular: No Carotid Bruits, Normal Femoral Pulses, Normal Radial Pulses, Normal Dorsalis Pedal Pulse, Normal Posterior Tibial Pulses Abdomen: Bowel Sounds Present, Soft, Non Tender, No HSM, No Organomegaly Extremities: No Cyanosis, No Clubbing, No edema Neurological: No Focal Motor or Sensory Deficit 01/12/19 05:30: Sodium 142, Potassium 3.9, Chloride 110 H, Carbon Dioxide 25.0, Anion Gap 7, BUN 17, Creatinine 0.68, Est GFR (MDRD) Af Amer 114, Est GFR (MDRD) Non-Af 94, BUN/Creatinine Ratio 25.2 H, Glucose 94, Calcium 8.0 L 01/12/19 05:30: WBC 9.2, RBC 4.00 L, Hgb 11.6 L, Hct 36.1 L, MCV 90.3, MCH 29.0, MCHC 32.1, RDW 13.5, RDW Differential 44.0 H, Plt Count 250, MPV 10.6, Immature Gran % (Auto) 0.200, Neut % (Auto) 58.5, Lymph % (Auto) 28.6, [place] % (Auto) 9.0, Eos % (Auto) 3.2, Baso % (Auto) 0.5, Absolute Neuts (auto) 5.4, Total Counted Not Reportable Rhythm: EKG: ECHO: LVEF of 60% with mild proximal basilar hypokinesis. Unable to estimate RVSP. Stress Test: Cardiac Cath: PCI: CT Surgery: Holter monitor: EPS: PPM: CXR: Chest CT Scan: Medical Necessity - Tobacco Use Smoking Status: Current every day smoker Assessment/Plan 1. Coronary artery disease: Patient presented on 01/10/19 with progressively worsening substernal chest pain which is been progressing over the previous several days, culminating in acute inferior lateral wall myocardial infarction. She underwent emergent left heart catheterization and angioplasty and stenting of her proximal RCA with a stent overlapping into the previous RCA stent placed about [address] [place] at [facility]. Upon completion of the procedure, but prior to leaving the lab the patient developed recurrent chest pain and ST elevation. Emergent repeat catheterization demonstrated acute stent thrombosis, the patient was treated with IV Integrilin on top of her previously given Brilinta, and underwent emergent angioplasty, thrombectomy, IVUS evaluation, and additional post stent dilatation. Final result demonstrated widely patent right coronary artery, with excellent distal DEMOND blush score. This morning she is chest pain-free and doing well. She will continue baby aspirin, Brilinta, and beta-marty therapy. The patient sheath was removed with a small hematoma which has resolved both medially and laterally. The patient does have some point tenderness over her access site, but I can detect no thrills or bruits. Out of an abundance of caution, and considering the patient got up on her own out of bed AGAINST MEDICAL ADVICE, we will obtain a ultrasound of her right groin to determine if she has a pseudoaneurysm. If she has a pseudoaneurysm she may require thrombin injection if appropriate. If there is no pseudoaneurysm, she may be able to be discharged home assuming she is able to ambulate properly. Patient will continue aspirin, Brilinta, beta-marty, and will start her on ARB therapy. I have thoroughly explained the patient the need to quit smoking, and she has a NicoDerm patch at home which I encouraged her to use. Echocardiogram on this admission showed intact LV function with an EF around 60%, mild inferior posterior proximal hypokinesis which will hopefully improve with medical therapy and cardiac rehab. We will repeat her echocardiogram in 3 to 4 months time after completion of cardiac rehab. 2. Hyperlipidemia: Her LDL is 141, HDL is 48. She was started on Lipitor 80 g p.o. nightly. Repeat lipid profile in 6 weeks time. 3. Tobacco cessation: Patient unfortunately had a significant sized psychosocial stress recently with the suicide of her son, and unfortunately has required increased doses of tobacco. I have talked to her about the benefits of discontinuation of tobacco, and hopefully this will improve her overall health. Should the patient require nicotine support while she is in the hospital, I believe is reasonable for low-dose nicotine patch. I believe the patient may require psychiatric therapy for her grieving process, may require antidepressant therapy as well. 4. Thank you very much for the opportunity to participate in the cardiac care of your patient. We will hold off on discharge until the results of the ultrasound of been completed. Code Visit Inpatient E&M: 14293 Subs Hosp L2
--- NOTE | 2019-01-12 10:00 | EKG12_ITS ---
Test Reason : AM EKG Blood Pressure : / mmHG Vent. Rate : 076 BPM Atrial Rate : 076 BPM P-R Int : 142 ms QRS Dur : 074 ms QT Int : 446 ms P-R-T Axes : 018 033 -61 degrees QTc Int : 501 ms Normal sinus rhythm T wave abnormality, consider inferior ischemia Prolonged QT Abnormal ECG Confirmed by NIC LYNNE, KEANU ([id number]), proposal editor MONCHO MOSES ([id number]) on 01/15/2019 1:43:37 PM Referred By: Tristen Mchugh Confirmed By:KEANU LUCERO MD
--- NOTE | 2019-01-12 10:01 | PCM.DC ---
- Discharge Diagnoses Current Active Problems: Current Active and Chronic Problems (Last Updated 01/10/19 @ 11:55 by Darcy Knowles) Atherosclerotic heart disease of [place] coronary artery without angina pectoris (Chronic) Segmented LV systolic dysfunction- Mild LVEF: by LV gram 55 % Single vessel CAD of the RCA Non obstructive coronary arteries Acute occlusion of proximal RCA upstream from stent. Successful PTCA/EMPERATRIZ of occluded proximal RCA, upstream from previous stent, utilizing a 3.0 x 16 promus Synergy, post dilated with a 3.0, 3.25 and 3.5 x 12 NC Balloon. 100%-->0%, no dissection. Pt had less than optimal stent deployment at end of first case despite 3.25 NC Balloon. 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 Emergent reprep and relook showed acute stent thrombosis. Emergent PTCA with 2.0 x 12 balloon, followed by Story catheter, followed by IVUS performed. Pt given Integrillin bolus and gtt, followed by post stent dilatation with a 3.0 x 10 Angiosculpt, followed by a 3.5 x 12 NC balloon. Repeat IVUS confirmed appropriate stent deployment and no resolution of scar tissue protruding through stent struts. Stented coronary artery (Chronic 01/10/19) Segmented LV systolic dysfunction- Mild LVEF: by LV gram 55 % Single vessel CAD of the RCA Non obstructive coronary arteries Acute occlusion of proximal RCA upstream from stent. Successful PTCA/EMPERATRIZ of occluded proximal RCA, upstream from previous stent, utilizing a 3.0 x 16 promus Synergy, post dilated with a 3.0, 3.25 and 3.5 x 12 NC Balloon. 100%-->0%, no dissection. Pt had less than optimal stent deployment at end of first case despite 3.25 NC Balloon. 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 Emergent reprep and relook showed acute stent thrombosis. Emergent PTCA with 2.0 x 12 balloon, followed by Story catheter, followed by IVUS performed. Pt given Integrillin bolus and gtt, followed by post stent dilatation with a 3.0 x 10 Angiosculpt, followed by a 3.5 x 12 NC balloon. Repeat IVUS confirmed appropriate stent deployment and no resolution of scar tissue protruding through stent struts. ST elevation myocardial infarction (STEMI) (Acute) You will use the following diet at home:: Cardiac Your food should be the consistency of: Regular Discharge Activity: May Not Drive - for 1 week until she sees PCP Call your doctor if you observe: Fever of 101 or Higher, Numbness or Tingling, Inability to urinate, Inability to have a bowel movement, Shortness of breath, Dizziness, Fainting spells, Swelling in the ankles, Chest pain, Increased palpitations (irregular heartbeat), Uncontrolled pain Additional Instructions: The patient was advised to follow-up with mental health counselor for her grief after her son's of her psychiatrist in 2 to 3 weeks. Allergies/Adverse Reactions: Allergies No Known Allergies Allergy (Verified 09/28/17 21:11) Medications to take at Discharge Nitroglycerin (INPATIENT USE) [Nitrostat] 0.4 mg SUBLINGUAL Q5M PRN 03/25/14 Pramipexole Di-HCl [Mirapex] 0.5 mg PO QHS 03/25/14 Amlodipine [Norvasc] 10 mg PO DAILY 09/28/17 Acetaminophen [Tylenol Tablet] 650 mg PO Q6H PRN PRN tablet 09/29/17 Aspirin [Aspirin, Baby] 81 mg PO DAILY@0800 01/10/19 Hydrochlorothiazide 12.5 mg PO DAILY 01/10/19 Nicotine [Nicotine Patch] 1 ea TD DAILY 01/10/19 Atorvastatin Calcium [Lipitor] 80 mg PO QHS #30 tab 01/11/19 Losartan Potassium [Cozaar] 25 mg PO DAILY #30 tab 01/11/19 Metoprolol Tartrate [Lopressor (beta marty)] 25 mg PO BID #60 tab 01/11/19 Ticagrelor [Brilinta] 90 mg PO BID #60 tab 01/11/19 Aspirin E.C. [Ecotrin] 81 mg PO DAILY@0800 #30 tab 01/12/19 Nicotine [Nicoderm Cq] 21 mg TRANSDERM. DAILY #30 patch 01/12/19 The following prescriptions were given: Ticagrelor [Brilinta] 90 mg PO BID #60 tab Transmission Status: Received by [id number] Losartan Potassium [Cozaar] 25 mg PO DAILY #30 tab Transmission Status: Received by [id number] Aspirin E.C. [Ecotrin] 81 mg PO DAILY@0800 #30 tab Transmission Status: Pending to [id number] Atorvastatin Calcium [Lipitor] 80 mg PO QHS #30 tab Transmission Status: Received by [id number] Metoprolol Tartrate [Lopressor (beta marty)] 25 mg PO BID #60 tab Transmission Status: Received by [id number] Nicotine [Nicoderm Cq] 21 mg TRANSDERM. DAILY #30 patch Transmission Status: Pending to [id number] Orders to be completed after discharge: Phase II, Outpatient Cardiac Rehab Location: None Selected Primary Care Physician: Miri Cummins DO [Primary Care Provider] - Please follow up with your Primary Care Physician in: IN 1-2 WEEK Test Results: Test results from this visit will be discussed in further detail at your follow-up appointment, if applicable. Please Follow Up With: Tristen Mchugh MD When: in 4-6 weeks. Follow-up with Edilia, cardiology 2018 at 3 pm
--- NOTE | 2019-01-12 10:03 | PCM.DC.SUM ---
Discharge Date and Diagnosis Date of Admission: 01/10/19 Date of Discharge: 01/12/19 - Primary Discharge Diagnosis Active and Suspected Problems (Last Updated 01/10/19 @ 11:55 by Darcy Knowles) ST elevation myocardial infarction (STEMI) (Acute) - Secondary Discharge Diagnosis Chronic Problems (Last Updated 01/10/19 @ 11:55 by Darcy Knowles) Atherosclerotic heart disease of [place] coronary artery without angina pectoris (Chronic) Segmented LV systolic dysfunction- Mild LVEF: by LV gram 55 % Single vessel CAD of the RCA Non obstructive coronary arteries Acute occlusion of proximal RCA upstream from stent. Successful PTCA/EMPERATRIZ of occluded proximal RCA, upstream from previous stent, utilizing a 3.0 x 16 promus Synergy, post dilated with a 3.0, 3.25 and 3.5 x 12 NC Balloon. 100%-->0%, no dissection. Pt had less than optimal stent deployment at end of first case despite 3.25 NC Balloon. Approximately 5 minutes after 1st procedure was completed and before pt had left labor conciliator table, pt had recurrent severe SSCP with new ST elevation on monitor. Emergent reprep and relook showed acute stent thrombosis. Emergent PTCA with 2.0 x 12 balloon, followed by [place] catheter, followed by IVUS performed. Pt given Integrillin bolus and gtt, followed by post stent dilatation with a 3.0 x 10 Angiosculpt, followed by a 3.5 x 12 NC balloon. Repeat IVUS confirmed appropriate stent deployment and no resolution of scar tissue protruding through stent struts. Stented coronary artery (Chronic 01/10/19) Segmented LV systolic dysfunction- Mild LVEF: by LV gram 55 % Single vessel CAD of the RCA Non obstructive coronary arteries Acute occlusion of proximal RCA upstream from stent. Successful PTCA/EMPERATRIZ of occluded proximal RCA, upstream from previous stent, utilizing a 3.0 x 16 promus Synergy, post dilated with a 3.0, 3.25 and 3.5 x 12 NC Balloon. 100%-->0%, no dissection. Pt had less than optimal stent deployment at end of first case despite 3.25 NC Balloon. Approximately 5 minutes after 1st procedure was completed and before pt had left labor conciliator table, pt had recurrent severe SSCP with new ST elevation on monitor. Emergent reprep and relook showed acute stent thrombosis. Emergent PTCA with 2.0 x 12 balloon, followed by [place] catheter, followed by IVUS performed. Pt given Integrillin bolus and gtt, followed by post stent dilatation with a 3.0 x 10 Angiosculpt, followed by a 3.5 x 12 NC balloon. Repeat IVUS confirmed appropriate stent deployment and no resolution of scar tissue protruding through stent struts. 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 Patient had chest pain substernal, excruciating 10/10 for 45 minutes prior to coming to ED. Chest pain radiated to upper back. Found to have elevated ST elevation inferior leads with reciprocal T wave inversions. Patient also dropped blood pressure into the 90s and heart rate dropped into 30s and received IV normal saline bolus, 1 mg atropine and was taken to [facility] immediately. 1. Inferior wall ST elevation WA with acute in-stent thrombosis after initial PCI of proximal RCA: Patient was admitted in ICU after emergent cath acute in-stent thrombosis after initial angioplasty and stenting of proximal RCA. Was found to have single-vessel RCA with proximal upstream occlusion of his stent. This was balloon and stented but patient again developed chest pain and ST elevation after completion of procedure but before leaving the [facility] and thereafter emergent cath showed acute in-stent thrombosis patient was put on IV Integrilin, underwent emergent angioplasty, thrombectomy and additional posterior dilatation. After that, patient had widely patent RCA with excellent distal DEMOND score. CXR showed hyper inflation without any acute cardiopulmonary process. 01/11/2019: 2D echo done. Echo shows EF 60% with stage I diastolic dysfunction. Posterior basal mildly hypokinetic. Normal RV size and systolic function. No significant valvular abnormality. As compared to previous echo September 2017, LV function is preserved with new mild proximal posterior hypokinesis. Patient has inferior lead T wave inversion probably dynamic expected changes after a STEMI with reperfusion. The sheath was removed on 01/10/2019. Patient was transferred to PCU 01/12/2019: No acute event overnight. Patient tolerated medications. Patient has mild anxiety and depression and increased because of loss of son recently. Nicotine patch ordered. Patient was also advised to follow-up with counselor and psychiatrist Dr. Abdul in [place]. Phone number and address given. 2. Chronic tobacco Abuse: Smoking cessation advised. Internal Carver when appropriate. 3. Dyslipidemia: Fasting profile shows LDL 141, HDL 48, total cholesterol 201. TG 58. On atorvastatin. Discharge medication reconciliation done. Discharge follow-up instructions completed. Discharge process discussed with the patient and all questions were answered to patient's satisfaction. Total time spent, exact 35 minutes on discharge meds reconciliation, examination, review of imaging and blood test and discussion with the patient on follow-up instructions. Subjective: Seen and examined. Patient did not had any acute events overnight. Denies any further chest pain, shortness of breath, irregular heartbeat/arrhythmia. Telemetry strips were reviewed. It shows T wave inversion in lead II. Serial EKGs were reviewed. Earlier, she had inferior wall WA, STEMI with ST elevation 3 mm. Repeat EKG after [facility] about 5 AM on [address] elevation with upright T waves inferior leads. Repeat EKG today about 5 AM shows sinus bradycardia at [address] elevation and T wave inversion in inferior leads. - Physical Exam General: Alert, Oriented x3, Cooperative HEENT: Atraumatic, PERRLA, EOMI, Normocephalic Neck: Supple, No JVD, Negative Carotid Bruits Lungs: Clear to auscultation, Normal air movement, No rhonchi, No wheeze, No rales Cardiovascular: Regular rate, Regular Rhythm, Normal S1, Normal S2, No murmurs Abdomen: Bowel Sounds Present, Soft, Non Tender, Non-Distended Extremities: No edema, Capillary Refill Less than 3 Seconds Skin: No rashes, No breakdown, - - Mild bruise over the right femoral artery access site. No hematoma. No active bleeding. No arterial bruit auscultated. Musculoskeletal: No Tenderness to Palpation of Joints or Extremities, Arthritic Changes Neurological: Cranial nerves II-XII grossly intact, Deep Tendon Reflexes 2+/4 and Symmetrical, Neuro grossly intact, Motor Exam 5/5 strength throughout Psych/Mental Status: Normal Affect, Appropriate Vital Signs Temp Pulse Resp BP Pulse Ox 98.3 F 62 12 95/55 L 97 01/11/19 04:00 01/11/19 06:00 01/11/19 06:00 01/11/19 06:00 01/11/19 06:40 Oxygen Flow Rate (L/min) 2 Oxygen Delivery Method Room Air Weight: 175 lb 7.807 oz Body Mass Index (BMI) 28.3 Intake and Output for Last 24 Hours 01/09/19 01/10/19 01/11/19 23:59 23:59 23:59 Intake Total 1572.7 / 1812.7 480 / 480 Output Total 1400 / 1550 550 / 550 Balance 172.7 / 262.7 -70 / -70 Laboratory Tests Past 24 Hrs 01/10/19 01/10/19 01/10/19 08:19 08:20 08:20 WBC 10.6 RBC 4.32 Hgb 12.8 Hct 38.9 MCV 90.0 MCH 29.6 MCHC 32.9 RDW 13.7 RDW Differential 45.1 H Plt Count 284 MPV 9.5 Immature Gran % (Auto) 0.100 Neut % (Auto) 81.8 H Lymph % (Auto) 13.0 L [place] % (Auto) 4.8 Eos % (Auto) 0.1 Baso % (Auto) 0.2 Absolute Neuts (auto) 8.6 H Absolute Lymphs (auto) 1.37 Total Counted Not Reportable Activated Clotting Time 114 Sodium Potassium Chloride Carbon Dioxide Anion Gap BUN Creatinine Estim Creat Clear Calc Est GFR (MDRD) Af Amer Est GFR (MDRD) Non-Af BUN/Creatinine Ratio Glucose Calcium Troponin I 44.200 H* 01/10/19 01/11/19 01/11/19 08:20 05:10 05:10 WBC 9.3 RBC 4.00 L Hgb 11.7 L Hct 36.5 L MCV 91.3 MCH 29.3 MCHC 32.1 RDW 13.8 RDW Differential 45.7 H Plt Count 272 MPV 10.1 Immature Gran % (Auto) Neut % (Auto) Lymph % (Auto) [place] % (Auto) Eos % (Auto) Baso % (Auto) Absolute Neuts (auto) Absolute Lymphs (auto) Total Counted Activated Clotting Time Sodium 143 142 Potassium 3.9 3.7 Chloride 110 H 110 H Carbon Dioxide 24.0 26.0 Anion Gap 9 6 BUN 23 H 16 Creatinine 0.66 0.68 Estim Creat Clear Calc 77.30 75.02 Est GFR (MDRD) Af Amer 116 113 Est GFR (MDRD) Non-Af 96 94 BUN/Creatinine Ratio 34.7 H 23.6 H Glucose 122 H 99 Calcium 7.5 L 8.1 L Troponin I Home Medications: Medications to take at Discharge Nitroglycerin (INPATIENT USE) [Nitrostat] 0.4 mg SUBLINGUAL Q5M PRN 03/25/14 Pramipexole Di-HCl [Mirapex] 0.5 mg PO QHS 03/25/14 Amlodipine [Norvasc] 10 mg PO DAILY 09/28/17 Acetaminophen [Tylenol Tablet] 650 mg PO Q6H PRN PRN tablet 09/29/17 Aspirin [Aspirin, Baby] 81 mg PO DAILY@0800 01/10/19 Hydrochlorothiazide 12.5 mg PO DAILY 01/10/19 Nicotine [Nicotine Patch] 1 ea TD DAILY 01/10/19 Atorvastatin Calcium [Lipitor] 80 mg PO QHS #30 tab 01/11/19 Losartan Potassium [Cozaar] 25 mg PO DAILY #30 tab 01/11/19 Metoprolol Tartrate [Lopressor (beta lorraine)] 25 mg PO BID #60 tab 01/11/19 Ticagrelor [Brilinta] 90 mg PO BID #60 tab 01/11/19 Aspirin E.C. [Ecotrin] 81 mg PO DAILY@0800 #30 tab 01/12/19 Nicotine [Nicoderm Cq] 21 mg TRANSDERM. DAILY #30 patch 01/12/19 Following Prescrptions Were Given to Patient: Ticagrelor [Brilinta] 90 mg PO BID #60 tab Transmission Status: Received by [id number] Losartan Potassium [Cozaar] 25 mg PO DAILY #30 tab Transmission Status: Received by [id number] Aspirin E.C. [Ecotrin] 81 mg PO DAILY@0800 #30 tab Transmission Status: Received by [id number] Atorvastatin Calcium [Lipitor] 80 mg PO QHS #30 tab Transmission Status: Received by [id number] Metoprolol Tartrate [Lopressor (beta lorraine)] 25 mg PO BID #60 tab Transmission Status: Received by [id number] Nicotine [Nicoderm Cq] 21 mg TRANSDERM. DAILY #30 patch Transmission Status: Received by [id number] Other Amb Orders: Phase II, Outpatient Cardiac Rehab Location: None Selected Primary Care Physician: Miri Cummins DO [Primary Care Provider] - Medical Necessity - Tobacco Use Smoking Status: Current every day smoker Meaningful Use Info Meaningful Use Diagnoses (Choose all that apply): AMI - AMI Aspirin given w/in 24hrs of arrival?: Yes ASA at discharge?: Yes Statins at discharge?: Yes Juan/ARB at discharge?: Yes Beta Lorraine at discharge?: Yes Done w/ Acute WA measure.: Yes Documented LVEF (%): 65 Code Visit Inpatient E&M: 79657 Disch Hosp
== END 2019-01-12 10:49 | disposition home or self-care (01) | DRG 247 ==
LOC: ED 01:12 → ICU 07:06 → PCU 01-12 08:44
PROVIDERS: Admitting Provider Hospitalist; Emergency Provider Emergency Medicine; Family Provider Family Medicine; PCP Family Medicine; Referring Provider Internal Medicine Cardiovascular Disease; Visit Provider Internal Medicine
DX: I21.19 ST elevation (STEMI) myocardial infarction involving other coronary artery of inferior wall (principal); T82.867A Thrombosis due to cardiac prosthetic devices, implants and grafts, initial encounter; F17.200 Nicotine dependence, unspecified, uncomplicated; I10 Essential (primary) hypertension; E78.5 Hyperlipidemia, unspecified; I25.10 Atherosclerotic heart disease of native coronary artery without angina pectoris; Z95.5 Presence of coronary angioplasty implant and graft
CPT/HCPCS: 36415; 71045; 80048; 80061; 84484; 85025; 85027; 85347; 85610; 85730; 92941; 92978; 93005; 93306; 93458; 93926; 97161; 97166; 97802; 99152; 99282; 99406; J7030; J7040; Q9967; A4216; C1725; C1753; C1757; C1769; C1874; C1887; C9606; J1327; J2405

== ENCOUNTER → 2019-06-28 12:41 | Outpatient (CLI) | payer BC, SELFPAY ==
[2019-01-10 10:10] VITALS: BMI 29.2
[2019-05-24 13:59] VITALS: BMI 26.1
--- NOTE | 2019-06-28 12:41 | ECHOD_ITS ---
Reason For Study: CAD/ASHD Procedure This was a 2D Doppler, Color Flow transthoracic echocardiogram. Exam performed in department. Left Ventricle Normal size and thickness. The estimated ejection fraction is 65 %. Stage 1 diastolic dysfunction. No regional wall motion abnormalities noted. Right Ventricle Normal size and thickness. Normal systolic function. Atria Normal left atrium. Normal right atrium. Normal atrial septum. Mitral Valve The mitral valve is structurally normal. No prolapse or stenosis seen. Mild mitral annular calcification extending into the posterior leaflet. Tricuspid Valve Normal tricuspid valve. Trivial tricuspid valve insufficiency. Right ventricular systolic pressure estimated to be 23 mmHg. Aortic Valve Trisinus/trileaflet aortic valve. Pulmonic Valve Normal pulmonic valve. Great Vessels Normal aortic root. Normal arch. Normal inferior vena cava. Inferior vena cava collapse with sniff. Pericardium/Pleural No pericardial effusion. MMode/2D Measurements & Calculations LVIDd: 4.2 cm IVSd: 1.0 cm Ao root diam: 3.1 cm LVIDs: 2.5 cm LVPWd: 1.1 cm RVDd: 3.0 cm FS: 40.9 % LAV(MOD-bp): 43.4 ml LA A4 area: 13.9 cm2 LA dimension(2D): 3.1 cm LAV(MOD-bp) Indexed: 23.8 ml/m2 LAV(MOD-sp2): 39.1 ml LAV(MOD-sp4): 39.7 ml RA A4 area: 11.6 cm2 Time Measurements MV dec time: 0.24 sec Doppler Measurements & Calculations MV E max flash: 84.4 cm/sec Lat Peak E' Flash: 7.6 cm/sec Med Peak E' Flash: 5.6 cm/sec MV A max flash: 96.5 cm/sec E/E' lat: 11.1 E/E' med: 15.1 MV E/A: 0.87 Ao V2 max: 114.2 cm/sec LV V1 max: 109.1 cm/sec TR max flash: 209.5 cm/sec Ao max P.2 mmHg LV V1 max P.8 mmHg TR max P.6 mmHg Interpretation Summary The estimated ejection fraction is 65 %. Stage 1 diastolic dysfunction. Trivial tricuspid valve insufficiency. Right ventricular systolic pressure estimated to be 23 mmHg. Compared to echo report dated 01/10/2019, LV function has improved from 60% to 65%. Ordering Physician: Jeison^Tristen^^^ Referring Physician: Kelly Olvera Performed By: Doretha Day, SEJALCS, RVT
== END ==
PROVIDERS: Family Provider Internal Medicine; PCP Internal Medicine; Referring Provider Internal Medicine Cardiovascular Disease; Visit Provider Internal Medicine Cardiovascular Disease
DX: I25.10 Atherosclerotic heart disease of native coronary artery without angina pectoris (principal); I25.2 Old myocardial infarction; I10 Essential (primary) hypertension; Z95.5 Presence of coronary angioplasty implant and graft
CPT/HCPCS: 93306

== ENCOUNTER 2019-07-02 11:56 | Day surgery (SDC) | payer BC, SELFPAY ==
[2019-01-10 10:10] VITALS: BMI 29.2
[2019-05-24 13:59] VITALS: BMI 26.1
[2019-07-02] VITALS (10 sets, daily range): BP systolic 71–187; BP diastolic 49–98; PULSE 55–68; RESP 15–16; TEMP 36.3–36.6; O2SAT 95–99; BMI 25.1
--- NOTE | 2019-07-02 | COLBX_PTH ---
PATIENT: GIOVANNI LOMAX LOC: EN U#:[id number] AGE/SX: 64/F ROOM: RE07/02/[address]: Dr. Rome Love MD : [id number] BED: DIS: 07/02/2019 SPEC #: [id number] RECD: 07/02/19 15:10 STATUS: ALEXIS ESSIE #: [id number] MAX: 07/02/19 00:[address]: Rome Love DEPT: SURGICAL PATHOLOGY RECD BY: Oren Breen ENTERED: 07/03/19 08:32 SP TYPE: COLON BX OTHR DR: Dr. Kelly Olvera DO Tissues: A - Jejunum, NOS B - Gastric mucous membrane C - Esophagus, NOS D - Esophagus, NOS E - COLON BIOPSY F - Descending colon G - Rectum, NOS Procedures: Special Stain Group II Surgery Specimen Level IV Alcian Blue/PAS (control) HEADER OPERATION: Colonoscopy, EGD ([facility]) PRE-OP DIAGNOSIS: Diarrhea TISSUE SUBMITTED: A - Jejunal biopsy, B - Antrum biopsy for histo and H. pylori, C - Distal esophagus biopsy, D - Mid esophagus biopsy, E - Random colon biopsy, F - Descending polyp (cold snare), G - Rectal polyp (cold snare) MICROSCOPIC DIAGNOSIS A. Jejunum, biopsy: No pathologic change. B. Gastric antrum, biopsy: Minimal chronic inflammation. See comment. C. Distal esophagus, biopsy: Gastroesophageal junction mucosa with mild chronic inflammation. No evidence of intestinal metaplasia. See comment. D. Mid esophagus, biopsy: Fragments of benign squamous mucosa. E. Colon, random biopsy: No significant pathologic change. See comment. F. Descending colon polyp, biopsy: Hyperplastic polyp. G. Rectal polyp, biopsy: Hyperplastic polyp. AM:micha 07/05/19 COMMENT B. The results of immunohistochemistry for Helicobacter pylori will be reported separately ([id number]). C. Alcian blue/PAS stain with matched control supports the above diagnosis. E. Focal recent hemorrhage in the mucosa is noted. Clinical correlation is suggested. MICROSCOPIC DESCRIPTION Slides are reviewed. GROSS DESCRIPTION A - Received in fixative is one container labeled with the patient's name and designated jejunal biopsy. The specimen consists of one irregular fragment of light [place]yer soft tissue that measures 0.3 x 0.3 x 0.1 cm. The specimen is totally submitted in one cassette. B - Received in fixative is one container labeled with the patient's name and designated antrum biopsy. The specimen consists of one irregular fragment of light [place]yer soft tissue that measures 0.4 x 0.3 x 0.1 cm. The specimen is totally submitted in one cassette. C - Received in fixative is one container labeled with the patient's name and designated distal esophagus biopsy. The specimen consists of two irregular fragments of light [place]yer soft tissue that in aggregate measure 0.4 x 0.2 x 0.1 cm. The specimen is totally submitted in one cassette. D - Received in fixative is one container labeled with the patient's name and designated mid esophagus biopsy. The specimen consists of one irregular fragment of light [place]yer soft tissue that measures 0.4 x 0.2 x 0.1 cm. The specimen is totally submitted in one cassette. E - Received in fixative is one container labeled with the patient's name and designated random colonic biopsy. The specimen consists of multiple irregular fragments of light [place]yer soft tissue that in aggregate measure 1 x 0.2 x 0.1 cm. The specimen is totally submitted in one cassette. F - Received in fixative is one container labeled with the patient's name and designated descending polyp. The specimen consists of multiple irregular fragments of light [place]yer soft tissue mixed with fecal material that in aggregate measure 1 x 0.3 x 0.1 cm. The specimen is totally submitted in one cassette. G - Received in fixative is one container labeled with the patient's name and designated rectal polyp. The specimen consists of a piece of meyer-pink polyp measuring 0.5 x 0.4 x 0.1 cm. The specimen is totally submitted in one cassette. / SJ:rg 07/03/19 TC:3 CPT: 26448 x7, 27291
--- NOTE | 2019-07-02 07:24 | HP.PCM_ITS ---
History and Physical Date of Admission: 07/02/19 HISTORY AND PHYSICAL ? Norma Boyle 1955 ? REFERRING PHYSICIAN: ??Kelly Olvera,* ? CHIEF COMPLAINT: ??Diarrhea ? HPI: The patient is a 64 year old female referred for endoscopy. ?Norma notes that she has had a three-month history of diarrheal stools. ?She states that she has loose liquidy stools and urgency and really can't even leave the house. ?She denies true cramping but notes rapid onset and urgency with watery foul smelling mucousy stools. ?She denies steatorrhea. ?She denies melena or blood in her stools. ?She rarely has normal bowel movements. ?She has been trying Imodium which seems to not help much. ?She denies this is related to eating foods. ?She notes no epigastric pain reflux or other challenges. ? She has had 2-3 incidence of incontinence where she has been unable to make it to the bathroom. ? She denies any change in her recent medications. ?She denies any antibiotic use. ?She denies any foreign travel. ?She notes no other family members with gastrointestinal infections or other challenges. ? Norma?has not?undergone prior endoscopy. ? ? The patient is being seen by me today at the request of Dr.?Kelly Olvera, DO?for my opinion and advice regarding three-month history of loose diarrheal stools.? ? ? PAST MEDICAL HISTORY PAST MEDICAL HISTORY Diagnosis Date ? Essential hypertension, benign 1973 ? diagnosed age 19 ? Other and unspecified hyperlipidemia ? ? Other chest pain Jun 2005 ? non-cardiac CP, stress test normal ? Other forms of migraine ? ? Restless legs syndrome (RLS) 2005 ? Senile osteoporosis 2005 ? Tobacco use disorder ? PAST SURGICAL HISTORY PAST SURGICAL HISTORY Procedure Laterality Date ? EGD W/O BRSH SPECIMEN W/BX ? 12/28/2007 ? gastritis ? REMOVAL OF OVARY(S) ? ? ? Oophorectomy - bilateral, due to recurrent cysts ? VAGINAL HYSTERECTOMY ? 1981 ? menorrhagia - no cancer ? ? ? CURRENT MEDICATIONS Current Outpatient Medications Medication Sig ? ticagrelor (BRILINTA) 90 mg tablet Take by mouth. ? pravastatin 80 mg tablet Take 1 tablet by mouth once daily. ? nitroglycerin sublingual 0.4 mg SL tablet Dissolve 1 tablet under the tongue every 5 minutes as needed for Chest Pain. ? aspirin 81 mg chewable tablet Take 1 tablet by mouth once daily. ? lisinopril (ZESTRIL, PRINIVIL) 5 mg tablet Take 5 mg by mouth. ? losartan (COZAAR) 50 mg tablet Take 50 mg by mouth once daily. ? peg 3350-electrolytes (COLYTE) 240-22.72-6.72 gram solution Take 4000 ml as directed. ?Follow written instructions from the doctor's office. ? Varenicline (CHANTIX) 0.5 (11)-1 (42) mg tablet Take one 0.5mg tablet by mouth once daily for 3 days, then increase to one 0.5mg tablet twice daily for 3 days, then increase to one 1mg tablet twice daily. (Patient not taking: Reported on 06/26/2019 ) ? clopidogrel 75 mg tablet Take 1 tablet by mouth once daily. ? carvedilol (COREG) 3.125 mg tablet Take 1 tablet by mouth twice daily. ? flaxseed-omega3,6,9-fatty acid 1,200-540-132 mg cap Take 1 capsule by mouth once daily. ? pramipexole 0.25 mg tablet Take 1 tablet by mouth once daily. (Patient taking differently: Take 0.5 mg by mouth once daily.) ? lisinopril-hydrochlorothiazide 20-25 mg ORAL per tablet Take 1 tablet by mouth once daily. ? No current facility-administered medications for this visit.? ? ? ALLERGIES:?Patient has no known allergies. ? PERSONAL HISTORY:? SOCIAL HISTORY Social History ? Tobacco Use ? Smoking status: Former Smoker ? ? Packs/day: 0.50 ? ? Years: 35.00 ? ? Pack years: 17.50 ? ? Types: Cigarettes ? ? Last attempt to quit: 11/08/2009 ? ? Years since quittin.6 ? Smokeless tobacco: Never Used ? Tobacco comment: tried wellbutrin, didn't tolerate patch, would consider Chantix but insurance doesn't cover Substance Use Topics ? Alcohol use: No ? Drug use: Yes ? ? Types: Marijuana ? ? Comment: caffeine ?? ? FAMILY HISTORY:? FAMILY HISTORY FAMILY HISTORY Problem Relation Age of Onset ? Alcohol/Drug Mother ? ? Heart Father ? 52 of [place], developed CAD age early 40's ? Alcohol/Drug Father ? ? Coronary Artery Disease Father ? ? Hypertension Father ? ? Heart Brother ?CABG age 46, stents and [place]'s placed since ? Cancer Maternal Aunt ?pancreatic ? Coronary Artery Disease Brother ? ? Hypertension Brother ? ? ? REVIEW OF SYMPTOMS: ??The review of systems data was entered by the nurse and reviewed by me ? Nursing Notes: Jameson Bishop ?06/26/2019 ?3:51 PM ?Signed REVIEW OF SYSTEMS: ?General:???The patient NOTES fatigue, NOTES weight loss, denies weight gain, denies feeling hot, and denies feelings of cold. ?Eyes: ?The patient denies glaucoma, denies eye injury/surgery, wears glasses or contacts. ?Ear/Nose/Throat: ?The patient denies allergies, denies hayfever, denies ear infections, and denies bloody noses. ?Cardiovascular: ?The patient denies chest pain, denies heart disease, NOTES high blood pressure,NOTES cardiac stent, NOTES prior heart attack, denies irregular heart beat, NOTES high cholesterol, ?denies poor circulation, denies heart failure, other cardiac issues, denies claudication, denies cold feet, denies peripheral arterial stent. ?Respiratory: ?The patient denies tuberculosis, denies pneumonia, NOTES fr equent cough, denies pulmonary embolism, NOTES shortness of breath, and denies coughing up blood. ?Gastrointestinal: ?The patient denies difficulty swallowing, denies acid reflux, denies ulcers, denies vomiting, denies jaundice/hepatitis, denies gallbladder problems, denies black or tarry stools, denies hemorrhoids, denies bleeding from rectum, denies diverticulitis, denies constipation, NOTES diarrhea, denies loss of stool control, and denies hernias. ?Kidney/Bladder: ?The patient denies kidney stones, denies urine infections, and denies bloody urine. ?Skin: ?The patient denies a history of skin cancer, denies bleeding/changing moles, and denies a history of skin rash. ?Neurologic: ?The patient denies a history of epilepsy/convulsions, denies headaches, denies head/spinal injuries, and denies stroke/TIA. ?Psychiatric: ?The patient denies psychiatric medications, NOTES depression, and denies voices, denies substance abuse. ?Endocrine: ?The patient denies thyroid disorders, denies diabetes, and denies hormonal problems. ?Hematologic: ?The patient NOTES a history of bruising, denies bleeding, and denies anemia, denies blood clots. ?Infections: ?The patient denies a history of measles and mumps, denies rheumatic fever, and denies sexually transmitted diseases. ?Musculoskeletal: ?The patient denies back pain/injury, denies back problems, denies sciatica, denies knee/foot trouble, denies arthritis, or denies gout. ? ? When was patient's last Mammogram screening? N/A ? ?Last Colonoscopy: ?NA ? Jameson Bishop ? PHYSICAL EXAMINATION: ? General: ?The patient is 64 year old female, well nourished, well hydrated in no acute distress. ?The patient is oriented to time, place, and person. ? VITALS:?Blood pressure 142/100, pulse 96, temperature 36.5 ?C (97.7 ?F), temperature source Temporal, resp. rate 20, height 165.1 cm (5' 5), weight 68.5 kg (151 lb), SpO2 98 %.?Body mass index is 25.13 kg/m?.? ? HEENT: ?Normal cephalic, ataumatic, pupils are equally round, sclera are anicteric, mucous membranes are moist, oropharynx is clear. ?Neck has no masses, asymmetry or lymphadenopathy. ?Thyroid is unremarkable. ? Respiratory: ?Clear to auscultation and percussion. ?Normal respiratory excursion and pattern. ? Cardiac: ?Examination is regular rate and rhythm. ? Abdominal exam: ?Soft, nontender, ?with no palpable masses. ?No hepatosplenomegaly. ?No palpable hernias. ? Rectal exam:?exam deferred ? Extremities: ?no clubbing, cyanosis or edema. ?No adenopathy. ? Other: ? LABORATORY VALUES: As Noted ? RADIOLOGIC STUDIES: ?As Noted ? Assessment ? IMPRESSION:?Diarrhea ? PLAN: ?I plan to perform upper and lower?endoscopy. ??We discussed the risks and benefits of the planned endoscopy. ?I have informed the patient that c omplications can occur including failure to complete the endoscopy and perforation. ?The patient had the opportunity to ask questions concerning the planned endoscopy. ?My staff has also explained the procedure to the patient in understandable terms and has given the patient printed material concerning the procedure. ?The patient freely consents to surgery. ? I plan to use golytely bowel preparation for endoscopy ? The patient has medical comorbidities for which I plan to perform the procedure under monitored anesthetic care. ? Diagnoses:?(R19.7) Diarrhea, unspecified type ?(primary encounter diagnosis) ? A letter was sent to ?Kelly Olvera, DO?indicating the above finding for this patient. ?? Return to Clinic: The patient is instructed to follow-up with me?after the testing has been completed. ? Rome Love MD
[2019-07-02] MEDS: Lactated Ringers 1,000 ML 100 ML IV (12:38)
--- NOTE | 2019-07-02 13:15 | IMM_PTH ---
PATIENT: GIOVANNI LOMAX LOC: EN U#:[id number] AGE/SX: 64/F ROOM: RE07/02/[address]: Dr. Rome Love MD : 1955 BED: DIS: 07/02/2019 SPEC #: [id number] RECD: 07/03/19 09:00 STATUS: ALEXIS RELina #: [id number] MAX: 07/02/19 13:[address]: Rome Love DEPT: IMMUNOHISTOCHEMISTRY RECD BY: Breann Gómez ENTERED: 07/03/19 09:01 SP TYPE: IMMUNO OTHR DR: Dr. Kelly Olvera DO Tissues: B - Stomach, NOS Procedures: H Pylori (initial) PHYSICIAN & INSTITUTION [place] [id number] SPECIMEN INFORMATION: Tissue Source: B - Antrum biopsy Clinical Info: Diarrhea Specimen Number: [id number] CPT code: 45981 METHODOLOGY: Deparaffinized sections of prefer/formalin-fixed tissue or PAP/DQ stained slides are incubated with monoclonal/polyclonal antibodies/oligonucleotide probes. Localization is made via biotin free immunoperoxidase method. Appropriate controls are performed and reacted as expected. Results on target cell population are indicated in the following table: RESULTS: ANTIBODY / CLONE RESULT Block B H Pylori (polyclonal) negative These tests were developed and their performance characteristics determined by [facility]. They may not have been cleared or approved by the U.S. Food and Drug Administration. The FDA has determined that such clearance or approval is not necessary. INTERPRETATION: B. Antrum biopsy: Negative for Helicobacter pylori organisms. AM:micha 07/05/19
--- NOTE | 2019-07-02 14:52 | OP.EGD_ITS ---
Patient Name: Norma Boyle Procedure Date: 07/02/2019 1:58 PM Date of : 1955 Age: 64 Procedure: Upper GI endoscopy Indications: Diarrhea Providers: Rome Love MD Referring MD: Kelly Olvera Medicines: Monitored Anesthesia Care Complications: No immediate complications. Procedure: Pre-Anesthesia Assessment: - Prior to the procedure, a History and Physical was performed, and patient medications and allergies were reviewed. The patient is competent. The risks and benefits of the procedure and the sedation options and risks were discussed with the patient. All questions were answered and informed consent was obtained. Patient identification and proposed procedure were verified by the physician, the nurse, the anesthesiologist and the color corrector in the procedure room. Mental Status Examination: alert and oriented. Airway Examination: normal oropharyngeal airway and neck mobility. Respiratory Examination: clear to auscultation. CV Examination: normal. Prophylactic Antibiotics: The patient does not require prophylactic antibiotics. Prior Anticoagulants: The patient has taken Plavix (clopidogrel), last dose was 1 day prior to procedure. ASA Grade Assessment: III - A patient with severe systemic disease. After reviewing the risks and benefits, the patient was deemed in satisfactory condition to undergo the procedure. The anesthesia plan was to use monitored anesthesia care (MAC). Immediately prior to administration of medications, the patient was re-assessed for adequacy to receive sedatives. The heart rate, respiratory rate, oxygen saturations, blood pressure, adequacy of pulmonary ventilation, and response to care were monitored throughout the procedure. The physical status of the patient was re-assessed after the procedure. After obtaining informed consent, the endoscope was passed under direct vision. Throughout the procedure, the patient's blood pressure, pulse, and oxygen saturations were monitored continuously. The gastroscope was introduced through the mouth, and advanced to the jejunum. The upper GI endoscopy was accomplished with ease. The patient tolerated the procedure well. Scope In: 2:23:22 PM Scope Out: 2:27:07 PM Total Procedure Duration Time 0 hours 3 minutes 45 seconds Findings: The examined jejunum was normal. Localized mild inflammation characterized by erosions and erythema was found in the duodenal bulb. Scattered moderate inflammation characterized by erosions, erythema, friability and granularity was found in the gastric antrum. Biopsies were taken with a cold forceps for Helicobacter pylori testing using PyloriTek test. Biopsies were taken with a cold forceps for histology. The lower third of the esophagus was normal. Biopsies were taken with a cold forceps for histology. The middle third of the esophagus was normal. Biopsies were taken with a cold forceps for histology. Impression: - Normal examined jejunum. - Duodenitis. - Gastritis. Biopsied. - Normal lower third of esophagus. Biopsied. - Normal middle third of esophagus. Biopsied. Recommendation: - Discharge patient to home. - Resume previous diet. - Continue present medications. - Await pathology results. - Return to physician supply assistant in 1 week. Procedure Code(s): --- Professional --- 84162, Esophagogastroduodenoscopy, flexible, transoral; with biopsy, single or multiple CPT copyright 2017 [employer]. All rights reserved. The codes documented in this report are preliminary and upon nuclear pharmacist review may be revised to meet current compliance requirements. Rome Love MD 07/02/2019 2:52:03 PM This report has been signed electronically. Number of Addenda: 0 Note Initiated On: 07/02/2019 1:58 PM
--- NOTE | 2019-07-02 14:54 | OP.COLON_ITS ---
Patient Name: Norma Boyle Procedure Date: 07/02/2019 2:27 PM Date of : 1955 Age: 64 Procedure: Colonoscopy Indications: Clinically significant diarrhea of unexplained origin Providers: Rome Love MD Referring MD: Kelly Olvera Medicines: Monitored Anesthesia Care Patient Profile: This is a 64 year old female. Refer to note in patient chart for documentation of history and physical. Last Colonoscopy: more than 3 years ago. Complications: No immediate complications. Procedure: Pre-Anesthesia Assessment: - Prior to the procedure, a History and Physical was performed, and patient medications and allergies were reviewed. The patient is competent. The risks and benefits of the procedure and the sedation options and risks were discussed with the patient. All questions were answered and informed consent was obtained. Patient identification and proposed procedure were verified by the physician, the nurse, the anesthesiologist and the tmh teacher in the procedure room. Mental Status Examination: alert and oriented. Airway Examination: normal oropharyngeal airway and neck mobility. Respiratory Examination: clear to auscultation. CV Examination: normal. Prophylactic Antibiotics: The patient does not require prophylactic antibiotics. Prior Anticoagulants: The patient has taken Plavix (clopidogrel), last dose was 1 day prior to procedure. ASA Grade Assessment: III - A patient with severe systemic disease. After reviewing the risks and benefits, the patient was deemed in satisfactory condition to undergo the procedure. The anesthesia plan was to use monitored anesthesia care (MAC). Immediately prior to administration of medications, the patient was re-assessed for adequacy to receive sedatives. The heart rate, respiratory rate, oxygen saturations, blood pressure, adequacy of pulmonary ventilation, and response to care were monitored throughout the procedure. The physical status of the patient was re-assessed after the procedure. After I obtained informed consent, the scope was passed under direct vision. Throughout the procedure, the patient's blood pressure, pulse, and oxygen saturations were monitored continuously. The Colonoscope was introduced through the anus and advanced to the cecum, identified by the appendiceal orifice, ileocecal valve and palpation. The colonoscopy was performed without difficulty. The patient tolerated the procedure well. The quality of the bowel preparation was good. Scope In: 2:29:26 PM Scope Withdrawal Time 0 hours 11 minutes 51 seconds Scope Out: 2:46:09 PM Total Procedure Duration Time 0 hours 16 minutes 43 seconds Findings: The perianal and digital rectal examinations were normal. Two semi-sessile polyps were found in the rectum and descending colon. The polyps were small in size. These polyps were removed with a cold snare. Resection and retrieval were complete. The colon (entire examined portion) appeared normal. Biopsies for histology were taken with a cold forceps from the cecum and sigmoid colon for evaluation of microscopic colitis. A few small-mouthed diverticula were found in the sigmoid colon. The retroflexed view of the distal rectum and anal verge was normal and showed no anal or rectal abnormalities. Impression: - Two small polyps in the rectum and in the descending colon, removed with a cold snare. Resected and retrieved. - The entire examined colon is normal. Biopsied. - Diverticulosis in the sigmoid colon. - The distal rectum and anal verge are normal on retroflexion view. Recommendation: - Discharge patient to home. - Resume previous diet. - Continue present medications. - Repeat colonoscopy for surveillance based on pathology results. - Return to physician central supply assistant in 1 week. Procedure Code(s): --- Professional --- 57212, Colonoscopy, flexible; with removal of tumor(s), polyp(s), or other lesion(s) by snare technique 99933, 59, Colonoscopy, flexible; with biopsy, single or multiple CPT copyright 2017 [employer]. All rights reserved. The codes documented in this report are preliminary and upon watershed engineer review may be revised to meet current compliance requirements. Rome Love MD 07/02/2019 2:54:09 PM This report has been signed electronically. Number of Addenda: 0 Note Initiated On: 07/02/2019 2:27 PM
== END 2019-07-02 16:22 | disposition home or self-care (01) ==
LOC: EN 11:57 → AC 11:58
PROVIDERS: Family Provider Internal Medicine; PCP Internal Medicine; Referring Provider Internal Medicine; Visit Provider Surgery
PROC: 0DJD8ZZ Inspection of Lower Intestinal Tract, Via Natural or Artificial Opening Endoscopic (ICD-10-PCS; CPT 45378; principal; 2019-07-02 13:10)
DX: K29.50 Unspecified chronic gastritis without bleeding (principal); K29.80 Duodenitis without bleeding; K63.5 Polyp of colon; K62.1 Rectal polyp; K57.30 Diverticulosis of large intestine without perforation or abscess without bleeding; R19.7 Diarrhea, unspecified; I25.10 Atherosclerotic heart disease of native coronary artery without angina pectoris; I25.2 Old myocardial infarction; I10 Essential (primary) hypertension; I44.0 Atrioventricular block, first degree; J44.9 Chronic obstructive pulmonary disease, unspecified; G25.81 Restless legs syndrome; E78.5 Hyperlipidemia, unspecified; M81.0 Age-related osteoporosis without current pathological fracture; F17.210 Nicotine dependence, cigarettes, uncomplicated; F12.90 Cannabis use, unspecified, uncomplicated; Z79.02 Long term (current) use of antithrombotics/antiplatelets; Z95.5 Presence of coronary angioplasty implant and graft; Z79.82 Long term (current) use of aspirin; Z79.899 Other long term (current) drug therapy
CPT/HCPCS: 43239; 45380; 45385; 88305; 88313; 88342; J7120

== ENCOUNTER 2019-11-12 14:04 | Emergency (ER) | payer BC, SELFPAY ==
[2019-01-10 10:10] VITALS: BMI 29.2
[2019-07-02 12:24] VITALS: BMI 25.1
[2019-11-12 14:05] VITALS: BP 188/119; PULSE 81; RESP 18; TEMP 36.6; O2SAT 98; BMI 25.0
--- NOTE | 2019-11-12 14:34 | ED.VIS.UPPEX ---
History of Present Illness Chief Complaint: Upper Extremity Injury Informant: Patient Occurred: Today - JPHANH Mechanism/Context: Fall Context: Sudden Onset - tripped over a short fence Timing: Continuous Quality of Pain: Aching Location: left shoulder Current Severity: Severe Maximum Severity: Severe Worsened by: trying to move LUE Relieved by: remaining still Associated Symptoms: Loss of Funtion. Negative for: Parasthesia, Weakness Narrative: Patient tripped and landed on her left shoulder. [place] any other injury. [id number]. No numbness or tingling or weakness distally. No pain at the elbow or distal, just the shoulder. Has a history of a collarbone fracture, states this feels different. 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 Successful PTCA/EMPERATRIZ of occluded proximal RCA, upstream from previous stent, utilizing a 3.0 x 16 promus Synergy, post dilated with a 3.0, 3.25 and 3.5 x 12 NC Balloon. 100%-->0%, no dissection. Pt had less than optimal stent deployment at end of first case despite 3.25 NC Balloon. 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 Emergent reprep and relook showed acute stent thrombosis. Emergent PTCA with 2.0 x 12 balloon, followed by New Site catheter, followed by IVUS performed. Pt given Integrillin bolus and gtt, followed by post stent dilatation with a 3.0 x 10 Angiosculpt, followed by a 3.5 x 12 NC balloon. Repeat IVUS confirmed appropriate stent deployment and no resolution of scar tissue protruding through stent struts. (3) Hyperlipidemia Status: Chronic (4) Hypertension Status: Chronic (5) Stented coronary artery Status: Chronic Comment: Acute occlusion of proximal RCA upstream from stent. Successful PTCA/EMPERATRIZ of occluded proximal RCA, upstream from previous stent, utilizing a 3.0 x 16 promus Synergy, post dilated with a 3.0, 3.25 and 3.5 x 12 NC Balloon. 100%-->0%, no dissection. Pt had less than optimal stent deployment at end of first case despite 3.25 NC Balloon. 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 Emergent reprep and relook showed acute stent thrombosis. Emergent PTCA with 2.0 x 12 balloon, followed by New Site catheter, followed by IVUS performed. Pt given Integrillin bolus and gtt, followed by post stent dilatation with a 3.0 x 10 Angiosculpt, followed by a 3.5 x 12 NC balloon. Repeat IVUS confirmed appropriate stent deployment and no resolution of scar tissue protruding through stent struts. (6) Vertigo Status: Suspected Past Medical History - Allergies and Home Meds Allergies/Adverse Reactions: Allergies adhesive Adverse Reaction (Intermediate, Verified 11/12/19 14:05) Rash Primary Care Physician: Kelly Olvera DO [Primary Care Provider] - Maikol Bishop MD [STAFF PHYSICIAN] - 3-5 Days (Call for appointment; may see any of the orthopedic physicians.) Doctors: [facility] Surgical History: hysterectomy, - - Heart cath with stents. Right distal clavicle ORIF. Smoking Status: Current every day smoker Drugs: None - Family History Paternal Family History: Reports: Heart Disease - Her father from heart attack at age of 52 Review of Systems General: Denies: Chills, Fever, Sweats Eyes: Denies: Visual changes - bilaterally, Diplopia ENT: Denies: Rhinorrhea, Sore throat Cardiovascular: Denies: Chest pain, Palpitations Respiratory: Denies: Dyspnea, Cough, Dyspnea on exertion Gastrointestinal: Denies: Abdominal pain, Nausea, Vomiting, Diarrhea, Melena, Hematochezia Genitourinary: Denies: Dysuria, Hematuria, Frequency Musculoskeletal: Reports: Extremity Pain. Denies: Back pain Skin: Denies: Rash, Wounds Neurological: Denies: Headache, Weakness, Numbness Physical Exam Vital Signs/Narrative: Vital Signs Temp Pulse Resp BP Pulse Ox 11/12/19 14:05 97.8 F 81 18 188/119 H 98 General: Well nourished, Well developed Head: Normocephalic, Atraumatic Eyes: Perrl, EOMI ENT: No Trauma, Moist Mucous Membranes Neck: Nontender, Full ROM Cardiovascular: Regular rate, Regular rhythm, No murmurs Respiratory: No distress, CTA bilaterally, Chest nontender Abdomen: Soft, Nontender, Nondistended, Normal bowel sounds Back: Nontender Extremeties: Deformity left shoulder, consistent with a probable anterior dislocation. No clavicle or acromioclavicular tenderness. Tender at the proximal humerus. No other left upper extremity tenderness. Neurovascularly intact distally. Skin: Normal color, No rash, Trauma - Ecchymosis left anterior lateral shoulder, skin intact. Neurological: Alert, Oriented x3, Cranial nerves II-XII grossly intact, Normal Strength, Normal Sensation, Normal Gait Psychological: Normal affect, Normal Mood Diagnostic/Tx/Re-eval Clinical Impression(s) from Imaging Studies Shoulder X-Ray 11/12/19 15:21 IMPRESSION: Nondisplaced comminuted fracture of the surgical neck of the humerus with extension to the greater tuberosity. Soft tissue swelling. Electronically Signed: Marty Mari, at 15:33 EDT , Service support , - Medical Decision Making X-rays as above. Scapular Y view included in the shoulder series 2 views appears to show that the humeral head is located at the glenoid fossa without an anterior dislocation, which her clinical picture suggested. The anterior displacement of the humeral shaft and associated swelling is probably responsible for this. Discussed with Dr. Bishop, he advises getting an axillary view to make sure prior to discharging her home with a sling and pain medication. This was done, dislocation is essentially ruled out as a result, and the patient will follow-up. I ensure that she has help at home, she is right-hand dominant as well. ED Disposition - Plan for ED Patient: Disposition: Home or Assisted Living Diagnosis: Closed fracture of left proximal humerus Instructions: ED Fracture Upper Extremity, ED Sling and Swathe Prescriptions: Oxycodone HCl/Acetaminophen [Percocet 5/325] 1 - 2 tab PO Q6H PRN PRN 2 Days #12 tab PRN Reason: Pain Transmission Status: Received by [id number] Referrals: Kelly Olvera DO [Primary Care Provider] - Maikol Bishop MD [STAFF PHYSICIAN] - 3-5 Days (Call for appointment; may see any of the orthopedic physicians.)
[2019-11-12] MEDS: Morphine 4 MG/ML Syringe IV ×2 (14:42→16:07)
--- NOTE | 2019-11-12 15:21 | RAD_ITS ---
STUDY: X-RAY - LEFT SHOULDER REASON FOR EXAM: Female, 64 years old. fall. Left shoulder pain TECHNIQUE: 2 view(s) of the shoulder. COMPARISON: None. FINDINGS: Normal glenohumeral articulation. Normal acromioclavicular joint. Normal acromion. Nondisplaced comminuted fracture of the surgical neck of the humerus with extension to the greater tuberosity. Soft tissue swelling. Normal visualized pulmonary apex. RAD/Shoulder min 2 Views IMPRESSION: Nondisplaced comminuted fracture of the surgical neck of the humerus with extension to the greater tuberosity. Soft tissue swelling. Electronically Signed: Marty Mari, at 15:33 EDT , Service support ,
--- NOTE | 2019-11-12 15:51 | RAD_ITS ---
STUDY: X-RAY - LEFT SHOULDER REASON FOR EXAM: Female, 64 years old. LEFT SHOULDER FX, AXILLARY VIEW TECHNIQUE: 1 view(s) of the shoulder. COMPARISON: Earlier today FINDINGS: Normal glenohumeral articulation. Normal acromioclavicular joint. Normal acromion. Acute anteriorly displaced oblique fracture of the humeral neck. The soft tissue structures are unremarkable. Normal visualized pulmonary apex. RAD/Shoulder One View IMPRESSION: Acute anteriorly displaced fracture of the humeral neck. Electronically Signed: Rome Flores MD at 16:32 EDT Tel , Service support ,
[2019-11-12 16:45] VITALS: BP 167/81; PULSE 87; RESP 17; O2SAT 95
== END 2019-11-12 16:46 | disposition home or self-care (01) ==
PROVIDERS: Emergency Provider Emergency Medicine; PCP Internal Medicine
DX: S42.215A Unspecified nondisplaced fracture of surgical neck of left humerus, initial encounter for closed fracture (principal); W01.0XXA Fall on same level from slipping, tripping and stumbling without subsequent striking against object, initial encounter; Y93.9 Activity, unspecified; Y92.9 Unspecified place or not applicable; I25.10 Atherosclerotic heart disease of native coronary artery without angina pectoris; I25.2 Old myocardial infarction; I10 Essential (primary) hypertension; E78.5 Hyperlipidemia, unspecified; F17.200 Nicotine dependence, unspecified, uncomplicated; Z95.5 Presence of coronary angioplasty implant and graft; Z79.82 Long term (current) use of aspirin; Z79.899 Other long term (current) drug therapy
CPT/HCPCS: 73020; 73030; 96374; 96376; 99285

== ENCOUNTER → 2019-11-16 14:46 | Outpatient (CLI) | payer BC, SELFPAY ==
[2019-01-10 10:10] VITALS: BMI 29.2
[2019-11-12 14:05] VITALS: BMI 25.0
--- NOTE | 2019-11-16 09:17 | CT_ITS ---
STUDY: CT LEFT SHOULDER REASON FOR EXAM: Female, 64 years old. DETERMINE FRACTURE PATTERN RADIATION DOSAGE (If Supplied By Facility): CTDIvol = ( 24.58 ) mGy, DLP = ( 468.41 ) mGycm TECHNIQUE: The patient was scanned in a multi detector CT scanner. High resolution transaxial imaging was performed without the administration of intravenous contrast material. Sagittal and coronal images were reconstructed. Individualized dose optimization techniques were used for this CT. COMPARISON: None. FINDINGS: There is mild osteoarthritis of the glenohumeral articulation, with mild articular joint space narrowing and mild osteoarthritic spurring. Otherwise normal glenoid rim, neck and visualized scapula. There is a comminuted fracture involving the proximal humeral diaphysis extending to the humeral neck with with at least 2.1 cm displacement volarly of the humeral shaft in relation to the major upper bony fragment. There is extension of the fracture line to the humeral neck and humeral head most significantly involving the greater tuberosity. Normal coracoid process. Normal visualized lateral clavicle. Normal acromioclavicular articulation. There is a Type II morphology (curved), with a neutral orientation. Normal visualized muscles and soft tissue structures. CT/Coronals Sag Multi Obl 3-D Rec IMPRESSION: Complex comminuted fracture involving the proximal humerus as described. Underlying degenerative disease. Electronically Signed: Macrina Estrada MD at 0:49 EDT , Service support ,
--- NOTE | 2019-11-16 15:00 | CT_ITS ---
STUDY: CT LEFT SHOULDER REASON FOR EXAM: Female, 64 years old. DETERMINE FRACTURE PATTERN RADIATION DOSAGE (If Supplied By Facility): CTDIvol = ( 24.58 ) mGy, DLP = ( 468.41 ) mGycm TECHNIQUE: The patient was scanned in a multi detector CT scanner. High resolution transaxial imaging was performed without the administration of intravenous contrast material. Sagittal and coronal images were reconstructed. Individualized dose optimization techniques were used for this CT. COMPARISON: None. FINDINGS: There is mild osteoarthritis of the glenohumeral articulation, with mild articular joint space narrowing and mild osteoarthritic spurring. Otherwise normal glenoid rim, neck and visualized scapula. There is a comminuted fracture involving the proximal humeral diaphysis extending to the humeral neck with with at least 2.1 cm displacement volarly of the humeral shaft in relation to the major upper bony fragment. There is extension of the fracture line to the humeral neck and humeral head most significantly involving the greater tuberosity. Normal coracoid process. Normal visualized lateral clavicle. Normal acromioclavicular articulation. There is a Type II morphology (curved), with a neutral orientation. Normal visualized muscles and soft tissue structures. CT/Extremity Upper without Contra IMPRESSION: Complex comminuted fracture involving the proximal humerus as described. Underlying degenerative disease. Electronically Signed: Macrina Estrada MD at 0:49 EDT , Service support ,
== END ==
PROVIDERS: PCP Internal Medicine; Referring Provider Orthopaedic Surgery; Visit Provider Orthopaedic Surgery
DX: S42.222A 2-part displaced fracture of surgical neck of left humerus, initial encounter for closed fracture (principal)
CPT/HCPCS: 73200; 76377

== ENCOUNTER → 2020-07-23 13:54 | Outpatient (CLI) | payer BC, SELFPAY ==
[2019-01-10 10:10] VITALS: BMI 29.2
[2020-07-23 12:56] VITALS: BMI 26.2
[2020-07-23 15:36] LABS: Absolute Neutrophil Count 3.8 X10^3/uL (2.0-7.7); Basophil# 0.07 X10^3/uL; Basophil% 0.9 % (0-1); Eosinophil# 0.21 X10^3/uL; Eosinophils% 2.6 % (0-5); Hematocrit 46.7 % (37-47); Hemoglobin 14.7 g/dL (12.0-15.0); Lymphocyte % 40.4 % (19-41); Mean Corp Hgb Conc 31.5 g/dL (32-36); Mean Corpuscular Hgb 27.9 pg (27.0-32.0); Mean Corpuscular Volume 88.6 fL (81-99); Mean Platelet Vol. 10.2 fl (6.2-12.0); Monocyte# 0.66 X10^3/uL; Monocyte% 8.3 % (0-10); NRBC Flagged by Analyzer 0 % (0-5); Neutrophil # 3.77 X10^3/uL (2.7-7.7); Neutrophil % 47.5 % (47-70); Platelet Count 382 K/mm3 (150-450); RBC Distribution Width CV 13.3 % (11.6-14.6); RBC Distribution Width SD 43.8 fl (35.1-43.9); Red Blood Count 5.27 M/mm3 (4.2-5.4); White Blood Count 7.9 K/mm3 (4.4-11.0)
[2020-07-23 16:15] LABS: AST(SGOT) 14 U/L (15-37); Alanine Aminotransfer ALT/SGPT 26 U/L (13-56); Albumin, Serum 3.9 g/dL (3.2-5.0); Alkaline Phosphatase 87 U/L (45-117); Anion Gap 5 (5-15); BUN 14 mg/dL (7-18); BUN/Creat Ratio 19.8 RATIO (10-20); Calcium,Total 8.7 mg/dL (8.5-10.1); Chloride 105 mmol/L (98-107); Cholesterol 153 mg/dL (200); Creatinine, Serum 0.71 mg/dL (0.55-1.02); EST Glomerular Filtration Rate 89 mL/min (>60); Est Glom Filt Rate - Afr Amer 107 mL/min (>60); Glucose 81 mg/dL (74-106); High Density Lipoprotein 53 mg/dL; Potassium 3.7 mmol/L (3.5-5.1); Protein, Total 7.9 g/dL (6.4-8.2); Sodium Level 137 mmol/L (136-145); Triglycerides 88 mg/dL; Very Low Density Lipoprotein 18 mg/dL (5-40)
== END ==
PROVIDERS: PCP Internal Medicine; Referring Provider Physician Assistant Medical; Visit Provider Physician Assistant Medical
DX: I25.10 Atherosclerotic heart disease of native coronary artery without angina pectoris (principal); I10 Essential (primary) hypertension
CPT/HCPCS: 36415; 80053; 80061; 85025

== ENCOUNTER → 2021-12-14 | Outpatient (CLI) | payer BC, SELFPAY ==
[2019-01-10 10:10] VITALS: BMI 29.2
[2021-12-14 16:41] LABS: Absolute Lymphocyte Count 3.87 X10^3/uL (0.83-4.51); Absolute Neutrophil Count 5.1 X10^3/uL (2.0-7.7); Basophil# 0.09 X10^3/uL; Basophil% 0.9 % (0-1); Eosinophil# 0.25 X10^3/uL; Eosinophils% 2.5 % (0-5); Hematocrit 46.4 % (37-47); Hemoglobin 15.3 g/dL (12.0-15.0); Lymphocyte # 3.87 X10^3/ul (0.83-4.51); Lymphocyte % 38.8 % (19-41); Mean Corpuscular Hgb 29.7 pg (27.0-32.0); Mean Corpuscular Volume 89.9 fL (81-99); Mean Platelet Vol. 9.7 fl (6.2-12.0); Monocyte# 0.65 X10^3/uL; Monocyte% 6.5 % (0-10); NRBC Flagged by Analyzer 0 % (0-5); Neutrophil # 5.09 X10^3/uL (2.7-7.7); Platelet Count 356 K/mm3 (150-450); RBC Distribution Width CV 13.2 % (11.6-14.6); RBC Distribution Width SD 43.9 fl (35.1-43.9); Red Blood Count 5.16 M/mm3 (4.2-5.4)
[2021-12-14 17:41] LABS: ALB/GLOB Ratio 0.9 RATIO (0.9-2.4); AST(SGOT) 16 U/L (15-37); Alanine Aminotransfer ALT/SGPT 25 U/L (13-56); Albumin, Serum 3.8 g/dL (3.2-5.0); Alkaline Phosphatase 74 U/L (45-117); Anion Gap 6 (5-15); BUN 16 mg/dL (7-18); Calcium,Total 9.4 mg/dL (8.5-10.1); Chloride 101 mmol/L (98-107); Cholesterol 237 mg/dL (200); Creatinine, Serum 0.73 mg/dL (0.55-1.02); EST Glomerular Filtration Rate 85 mL/min (>60); Est Glom Filt Rate - Afr Amer 103 mL/min (>60); Globulin 4.2 g/dL (2.2-4.2); Glucose 93 mg/dL (74-106); High Density Lipoprotein 51 mg/dL; Potassium 3.8 mmol/L (3.5-5.1); Sodium Level 136 mmol/L (136-145); T4 Free Direct 0.92 ng/dL (0.76-1.46); Triglycerides 128 mg/dL; Very Low Density Lipoprotein 26 mg/dL (5-40)
== END | disposition home or self-care (01) ==
LOC: BIMLAB 16:12
PROVIDERS: PCP Internal Medicine; Referring Provider Internal Medicine; Visit Provider Internal Medicine
DX: I10 Essential (primary) hypertension (principal); F32.A Depression, unspecified
CPT/HCPCS: 36415; 80053; 80061; 84439; 84443; 85025

== ENCOUNTER → 2022-05-03 | Outpatient (CLI) | payer BC, SELFPAY ==
[2019-01-10 10:10] VITALS: BMI 29.2
--- NOTE | 2022-05-03 12:50 | RAD_ITS ---
EXAM: XR CHEST, 2 VIEWS CLINICAL INDICATION: Dyspnea, Cough TECHNIQUE: Frontal and lateral views of the chest. This report was created using mCASH report generation technology. COMPARISON: 01/10/2019 FINDINGS: LUNGS AND PLEURAL SPACES: Unremarkable. No consolidation or edema. No pneumothorax. No effusion. HEART: Unremarkable. Cardiac silhouette not enlarged. MEDIASTINUM: Central airways and mediastinal contour are unremarkable. BONES/JOINTS: Orthopedic hardware is seen across an old proximal left humeral fracture. SOFT TISSUES: Unremarkable. RAD/Chest PA and Lateral IMPRESSION: No acute findings in the chest. Electronically Signed: Ryan Santiago MD at 23:52 EDT ,
[2022-05-03 14:09] LABS: Absolute Lymphocyte Count 4.38 X10^3/uL (0.83-4.51); Absolute Neutrophil Count 8.3 X10^3/uL (2.0-7.7); Basophil# 0.07 X10^3/uL; Basophil% 0.5 % (0-1); Eosinophil# 0.08 X10^3/uL; Eosinophils% 0.6 % (0-5); Hematocrit 48.2 % (37-47); Lymphocyte # 4.38 X10^3/ul (0.83-4.51); Lymphocyte % 31.8 % (19-41); Mean Corp Hgb Conc 33.2 g/dL (32-36); Mean Corpuscular Hgb 30.1 pg (27.0-32.0); Mean Corpuscular Volume 90.6 fL (81-99); Mean Platelet Vol. 10.1 fl (6.2-12.0); Monocyte# 0.87 X10^3/uL; Monocyte% 6.3 % (0-10); NRBC Flagged by Analyzer 0 % (0-5); Neutrophil # 8.33 X10^3/uL (2.7-7.7); Neutrophil % 60.4 % (47-70); Platelet Count 409 K/mm3 (150-450); RBC Distribution Width CV 13.2 % (11.6-14.6); RBC Distribution Width SD 44.2 fl (35.1-43.9); Red Blood Count 5.32 M/mm3 (4.2-5.4); White Blood Count 13.8 K/mm3 (4.4-11.0)
[2022-05-03 14:35] LABS: BNP,B-Type NATRIURETIC PEPTIDE 44.3 pg/mL (0-100)
[2022-05-03 14:40] LABS: AST(SGOT) 15 U/L (15-37); Alanine Aminotransfer ALT/SGPT 22 U/L (13-56); Albumin, Serum 3.7 g/dL (3.2-5.0); Alkaline Phosphatase 83 U/L (45-117); Anion Gap 5 (5-15); BUN 16 mg/dL (7-18); BUN/Creat Ratio 25.4 RATIO (10-20); Bilirubin, Direct 0.09 mg/dL (0.00-0.30); Calcium,Total 8.9 mg/dL (8.5-10.1); Chloride 103 mmol/L (98-107); Cholesterol 216 mg/dL (200); Creatinine, Serum 0.63 mg/dL (0.55-1.02); EST Glomerular Filtration Rate 101 mL/min (>60); Est Glom Filt Rate - Afr Amer 122 mL/min (>60); Globulin 4.2 g/dL (2.2-4.2); Glucose 93 mg/dL (74-106); High Density Lipoprotein 56 mg/dL; Potassium 3.3 mmol/L (3.5-5.1); Protein, Total 7.9 g/dL (6.4-8.2); Sodium Level 139 mmol/L (136-145); Triglycerides 112 mg/dL; Very Low Density Lipoprotein 22 mg/dL (5-40)
== END | disposition home or self-care (01) ==
LOC: LAB 12:31
PROVIDERS: PCP Internal Medicine; Referring Provider Nurse Practitioner Gerontology; Visit Provider Nurse Practitioner Gerontology
DX: R06.09 Other forms of dyspnea (principal); E78.5 Hyperlipidemia, unspecified
CPT/HCPCS: 36415; 71046; 80048; 80061; 80076; 83880; 85025

== ENCOUNTER → 2022-05-25 | Outpatient (CLI) | payer BC, SELFPAY ==
[2019-01-10 10:10] VITALS: BMI 29.2
--- NOTE | 2022-05-25 13:58 | ECHOD_ITS ---
Reason For Study: DYSPNEA/SOB Procedure This was a 2D Doppler, Color Flow transthoracic echocardiogram. The study was technically difficult. Exam performed supine D/T prev left shoulder surgery with screws, rods/plates and pain.. Exam performed in department. Left Ventricle Normal LV size. Left ventricular systolic function is hyperdynamic. The estimated ejection fraction is 75 %. No evidence for diastolic dysfunction. No regional wall motion abnormalities noted. Right Ventricle Normal RV size. Normal systolic function. Atria Normal left atrium. Normal right atrium. No doppler evidence for ASD. Mitral Valve There is mild mitral annular calcification. Extension of the mitral annular calcification onto the posterior mitral valve leaflet. Trivial mitral valve insufficiency. Tricuspid Valve Normal tricuspid valve. Trivial tricuspid valve insufficiency. Right ventricular systolic pressure estimated to be 27 mmHg. Aortic Valve The aortic valve leaflets are not well visualized, however, based upon the 2D echocardiographic images obtained there appears to be moderate focal thickening present with no obvious significant restriction or insufficiency. Pulmonic Valve The pulmonic valve is not well visualized. Great Vessels Normal sized aortic root. Pericardium/Pleural No pericardial effusion. Epicardial fat. MMode/2D Measurements & Calculations LVIDd: 4.4 cm IVSd: 1.0 cm Ao root diam: 3.5 cm LVIDs: 2.7 cm LVPWd: 1.1 cm RVDd: 3.0 cm FS: 38.8 % LAV(MOD-bp): 33.9 ml LA A4 area: 13.9 cm2 LA dimension(2D): 2.7 cm LAV(MOD-bp) Indexed: 18.5 ml/m2 LAV(MOD-sp2): 28.5 ml LAV(MOD-sp4): 38.0 ml RA A4 area: 11.1 cm2 Time Measurements MV dec time: 0.17 sec Doppler Measurements & Calculations MV E max flash: 66.8 cm/sec Lat Peak E' Flash: 8.1 cm/sec Med Peak E' Flash: 5.9 cm/sec MV A max flash: 108.2 cm/sec E/E' lat: 8.2 E/E' med: 11.3 MV E/A: 0.62 MV dec slope: 405.6 cm/sec2 Ao V2 max: 151.9 cm/sec LV V1 max: 97.4 cm/sec Ao max P.2 mmHg LV V1 max P.8 mmHg PA V2 max: 101.9 cm/sec TR max flash: 246.3 cm/sec TR max P.3 mmHg ECHO/Echo Complete Interpretation Summary The study was technically difficult. Left ventricular systolic function is hyperdynamic. The estimated ejection fraction is 75 %. There is mild mitral annular calcification. Extension of the mitral annular calcification onto the posterior mitral valve l eaflet. Trivial mitral valve insufficiency. Trivial tricuspid valve insufficiency. The aortic valve leaflets are not well visualized, however, based upon the 2D e chocardiographic images obtained there appears to be moderate focal thickening present with no o bvious significant restriction or insufficiency. Epicardial fat. Right ventricular systolic pressure estimated to be 27 mmHg. No evidence for diastolic dysfunction. Ordering Physician: Minda Linton Referring Physician: Neida Troare Performed By: Doretha Day RDCS, RVT
== END | disposition home or self-care (01) ==
LOC: CVS 13:58
PROVIDERS: PCP Internal Medicine; Referring Provider Nurse Practitioner Gerontology; Visit Provider Nurse Practitioner Gerontology
DX: R06.09 Other forms of dyspnea (principal)
CPT/HCPCS: 93306

== ENCOUNTER → 2022-05-26 | Outpatient (CLI) | payer BC, SELFPAY ==
[2019-01-10 10:10] VITALS: BMI 29.2
--- NOTE | 2022-05-26 12:47 | CT_ITS ---
STUDY: LOW DOSE CT LUNG CANCER SCREENING REASON FOR EXAM: Female, 67 years old. Current smoker. 75 pack-year history. History of cardiac stents. RADIATION DOSAGE (If Supplied By Facility): CTDIvol = ( 3.02 ) mGy, DLP = ( 98.17 ) mGycm TECHNIQUE: No contrast was administered. Low dose technique was utilized (average mAS-38 and kVp 120). 1.25 mm axial source images with a slice interval of 1.25-mm were reconstructed in lung windows. 2.5 mm axial source images with a slice interval of 2.5-mm were reconstructed in lung windows. 5.0 mm axial source images with a slice interval of 5.0-mm were reconstructed in soft tissue windows. COMPARISON: Chest, May 03, 2022. NODULES: Total lung nodules (excluding granulomas): 0 Emphysema: Diffuse emphysematous change. Minimal apical pleural scarring. Endobronchial lesion: None Aorta: Atherosclerotic tortuosity without aneurysm. CORONARY ARTERIES: Minimal coronary artery calcifications. Right coronary artery stenting. Heart: Normal Pulmonary artery: Normal Mediastinal nodes: Nonspecific subcentimeter mediastinal lymphadenopathy. Other chest and abdominal findings: Mild degenerative changes of the thoracic spine. There are surgical changes of the left humerus. CT/Low Dose CT Lung Screening IMPRESSION: Lung-RADS category 1 - Continue annual screening with LDCT in 12 months. IMPORTANT NOTES FOR USE: ACR Lung-RADS Version 1.1 Assessment Categories Release Date: 2018 Category: Coded 0-4 bases on nodule(s) with highest degree of suspicion. Negative screen is defined as categories 1 and 2; a positive screen is defined as categories 3 and 4. Category 3 and 4A nodules that are unchanged on interval CT should be coded as category 2, and individuals returned to screening in 12 months. Category 4X: Category 3 or 4 nodules with additional imaging findings that increase the suspicion of lung cancer, such as spiculation, GGN that doubles in size in 1 year, enlarged lymph notes, etc. Category Modifiers: S (significant finding unrelated to lung cancer) Electronically Signed: Aniceto Chaudhary DO at 17:13 EST Reading Location ID and State: [facility] [place] Tel [phone], Service support ,
--- NOTE | 2022-05-28 10:59 | PFT ---
INTRODUCTION: The patient is a 67-year-old female that presents for pulmonary function studies secondary to a diagnosis of chronic tobacco dependency. Respiratory therapy reported good patient effort. Bronchodilators were used during testing. INTERPRETATION: Forced expiration spirometry demonstrates the presence of a severe large airways obstructive ventilatory defect. There was a significant response to aerosolized bronchodilators. Spirograms are of good quality but do not plateau indicating slow emptying of the lungs. Body plethysmography was performed and revealed an elevated RV to 186% of predicted, indicative of underlying air trapping. Diffusing capacity by single breath CO was within normal limits. IMPRESSION: Partially reversible severe large airways obstructive ventilatory defect with associated air trapping.
== END | disposition home or self-care (01) ==
LOC: CT 12:45
PROVIDERS: PCP Internal Medicine; Referring Provider Internal Medicine Critical Care Medicine; Visit Provider Internal Medicine Critical Care Medicine
DX: Z12.2 Encounter for screening for malignant neoplasm of respiratory organs (principal); R06.09 Other forms of dyspnea; F17.210 Nicotine dependence, cigarettes, uncomplicated
CPT/HCPCS: 71271; 94060; 94726; 94729

== ENCOUNTER → 2023-10-31 | Outpatient (CLI) | payer MEDICARE, SELFPAY ==
[2019-01-10 10:10] VITALS: BMI 29.2
[2023-10-31 12:07] LABS: Absolute Lymphocyte Count 2.77 X10^3/uL (0.83-4.51); Absolute Neutrophil Count 6.7 X10^3/uL (2.0-7.7); Basophil# 0.07 X10^3/uL; Basophil% 0.7 % (0-1); Eosinophil# 0.08 X10^3/uL; Eosinophils% 0.8 % (0-5); Hematocrit 46.2 % (37-47); Hemoglobin 15.1 g/dL (12.0-15.0); Lymphocyte # 2.77 X10^3/ul (0.83-4.51); Lymphocyte % 27.5 % (19-41); Mean Corp Hgb Conc 32.7 g/dL (32-36); Mean Corpuscular Hgb 29.3 pg (27.0-32.0); Mean Corpuscular Volume 89.7 fL (81-99); Mean Platelet Vol. 10.3 fl (6.2-12.0); Monocyte# 0.45 X10^3/uL; Monocyte% 4.5 % (0-10); NRBC Flagged by Analyzer 0 % (0-5); Neutrophil # 6.66 X10^3/uL (2.7-7.7); Neutrophil % 66.1 % (47-70); Platelet Count 363 K/mm3 (150-450); RBC Distribution Width CV 13.7 % (11.6-14.6); RBC Distribution Width SD 45.4 fl (35.1-43.9); Red Blood Count 5.15 M/mm3 (4.2-5.4); White Blood Count 10.1 K/mm3 (4.4-11.0)
[2023-10-31 12:29] LABS: ALB/GLOB Ratio 0.9 RATIO (0.9-2.4); AST(SGOT) 14 U/L (15-37); Alanine Aminotransfer ALT/SGPT 26 U/L (13-56); Albumin, Serum 3.5 g/dL (3.2-5.0); Alkaline Phosphatase 70 U/L (45-117); Anion Gap 6 (5-15); BUN 21 mg/dL (7-18); BUN/Creat Ratio 24.5 RATIO (10-20); Calcium,Total 9.2 mg/dL (8.5-10.1); Chloride 103 mmol/L (98-107); Cholesterol 232 mg/dL (200); Creatinine, Serum 0.86 mg/dL (0.55-1.02); EST Glomerular Filtration Rate 70 mL/min (>60); Est Glom Filt Rate - Afr Amer 85 mL/min (>60); Globulin 4.1 g/dL (2.2-4.2); Glucose 189 mg/dL (74-106); High Density Lipoprotein 48 mg/dL; Potassium 3.6 mmol/L (3.5-5.1); Protein, Total 7.6 g/dL (6.4-8.2); Sodium Level 138 mmol/L (136-145); Triglycerides 211 mg/dL; Very Low Density Lipoprotein 42 mg/dL (5-40)
[2023-10-31 17:59] LABS: Hemoglobin A1c 5.7 % (3.8-5.6)
== END | disposition home or self-care (01) ==
LOC: BIMLAB 10:53
PROVIDERS: PCP Internal Medicine; Visit Provider Internal Medicine
DX: I10 Essential (primary) hypertension (principal); R73.09 Other abnormal glucose
CPT/HCPCS: 36415; 80053; 80061; 83036; 85025

== ENCOUNTER 2023-11-10 13:58 | Observation (INO) | payer MEDICARE, OTHER, SELFPAY ==
[2019-01-10 10:10] VITALS: BMI 29.2
[2023-11-10] VITALS (14 sets, daily range): BP systolic 133–189; BP diastolic 75–158; PULSE 64–92; RESP 14–18; TEMP 36.6–37.2; O2SAT 94–98; BMI 29.4; BMI 28.6
--- NOTE | 2023-11-10 14:05 | CT_ITS ---
STUDY: CT HEAD STROKE PROTOCOL W/O CONTRAST INJECTION REASON FOR EXAM: Female, 68 years old. Neuro deficit, acute, stroke suspected RADIATION DOSAGE (If Supplied By Facility): CTDIvol = ( 44.99 ) mGy, DLP = ( 829.85 ) mGycm TECHNIQUE: Transaxial CT imaging of the brain was performed without administration of intravenous contrast material. Individualized dose optimization techniques were used for this CT. COMPARISON: Comparison is made with prior study dated September 28, 2017. FINDINGS: Normal soft tissue structures. Normal calvarium. There is mild cerebral atrophy with widening of the extra-axial spaces and ventricular dilatation. There are areas of decreased attenuation within the white matter tracts of the supratentorial brain, consistent with microvascular disease changes. Findings suggestive of old lacunar infarcts in the basal ganglia bilaterally. Normal brainstem. Normal cerebellum. There is no intracranial hemorrhage. There are no findings of an acute ischemic infarction. Atherosclerotic calcification of the cavernous portions of the internal carotid arteries bilaterally. Normal visualized paranasal sinuses. ASPECT score: 8 CT/STROKE Brain/Head without Cont IMPRESSION: Chronic involutional changes of the brain. N.B. : The above Results were Read Back by Maryt Mari MD to Dr Carmita MD, and understanding confirmed on 11/10/2023 14:26:25 (ET). Electronically Signed: Marty Mari MD at 14:27 EDT ,
--- NOTE | 2023-11-10 14:05 | RAD_ITS ---
STUDY: X-RAY CHEST REASON FOR EXAM: Female, 68 years old. Neuro deficit, acute, stroke suspected TECHNIQUE: Single AP portable view of the chest. COMPARISON: Comparison is made with prior study dated May 03, 2022. FINDINGS: EKG electrodes are seen. Hyperinflation. The lungs are clear. There is no demonstrated pleural abnormality. Normal size heart. Normal mediastinum and alex. Normal visualized pulmonary arteries. Normal visualized aortic arch and descending thoracic aorta. Normal visualized thoracic spine. Prior ORIF of the proximal left humeral fracture. There is no demonstrated abnormality of the visualized soft tissue structures of the upper abdomen. RAD/Chest 1 View IMPRESSION: Hyperinflation. The lungs are clear. Electronically Signed: Marty Mari MD at 14:58 EDT ,
--- NOTE | 2023-11-10 14:05 | EKG12_ITS ---
Test Reason : POSS STROKE Blood Pressure : / mmHG Vent. Rate : 072 BPM Atrial Rate : 072 BPM P-R Int : 150 ms QRS Dur : 086 ms QT Int : 438 ms P-R-T Axes : 071 059 068 degrees QTc Int : 479 ms Sinus rhythm with Premature atrial complexes Otherwise normal ECG Confirmed by KECIA LYNNE, MARTA ([id number]), greeting card editor FELICITAS CHRISTIE ([id number]) on 11/11/2023 10:27:50 AM Referred By: Confirmed By:MARTA MCDONNELL MD
--- NOTE | 2023-11-10 14:10 | ED.VIS.STROK ---
HPI History of Present Illness Chief Complaint: Stroke Alert Informant: patient Onset/Context/Timing Onset: Today Narrative Narrative: Patient presents secondary to slurred speech and left arm weakness that started approximately 40 minutes prior to arrival. states symptoms seem to resolve within 10 minutes. Patient states that she had problems using her left arm a couple days ago that lasted just a brief time also. [facility] Medical History Anxiety and depression Atherosclerotic heart disease of [place] coronary artery without angina pectoris Chronic pain Colon cancer screening COPD (chronic obstructive pulmonary disease) Depression Flu vaccine need Fracture Health care maintenance History of fracture of clavicle Hyperlipidemia Hypertension Left hand pain Osteoporosis Patient noncompliance Pre-op chest exam ST elevation myocardial infarction (STEMI) Tobacco abuse Home Medications aspirin 81 mg tablet,delayed release 81 mg PO DAILY@0800 #30 tabs 01/12/19 [Rx Last Taken Unknown] duloxetine 60 mg capsule,delayed release 60 mg PO DAILY #60 caps 12/15/21 [Rx Last Taken Unknown] potassium chloride 20 mEq tablet,extended release(part/cryst) 20 meq PO DAILY #2 tabs 05/05/22 [Rx Last Taken Unknown] atorvastatin 80 mg tablet 80 mg PO QHS #90 tabs 04/29/23 [Rx Last Taken Unknown] clopidogrel 75 mg tablet (Plavix) 75 mg PO DAILY #90 tabs 04/29/23 [Rx Last Taken Unknown] hydrochlorothiazide 25 mg tablet 25 mg PO DAILY #90 tabs 04/29/23 [Rx Last Taken Unknown] losartan 100 mg tablet 100 mg PO DAILY dose increase #90 tabs 04/29/23 [Rx Last Taken Unknown] metoprolol tartrate 25 mg tablet 25 mg PO BID #180 tabs 04/29/23 [Rx Last Taken Unknown] nitroglycerin 0.4 mg sublingual tablet 0.4 mg sublingual Q5M PRN Chest Pain #25 tabs 04/29/23 [Rx Last Taken Unknown] amlodipine 10 mg tablet 10 mg PO DAILY #90 tabs 05/30/23 [Rx Last Taken Unknown] albuterol sulfate 90 mcg/actuation aerosol inhaler 1 - 2 puff inhalation Q6H PRN PRN Sob &/Or Wheezing #8.5 grams 08/08/23 [Rx Last Taken Unknown] pramipexole 1.5 mg tablet,extended release 24 hr 1.5 mg PO QHS restless legs #90 tabs 11/08/23 [Rx Last Taken Unknown] Allergy/AdvReac Type Severity Reaction Status Date / Time No Known Allergies Allergy Verified 10/31/23 10:20 Family History Father , 52 Myocardial infarction Heart disease Hyperlipemia Brother Myocardial infarction CAD (coronary artery disease) CABG and stents Mother Arthritis Depression Osteoporosis Seizures Son Suicide Depression Other Cancer Surgical History History of hysterectomy History of oophorectomy History of shoulder surgery History of tonsillectomy Stented coronary artery (01/10/19) Social History (Updated 11/10/23 @ 14:13 by Molly Whaley) housing: house Smoking Status: Current every day smoker tobacco type: cigarettes Tobacco: How many years used: 50 alcohol intake: current alcohol intake frequency: holidays/special occasions only Alcohol type: wine substance use type: marijuana caffeine: Yes Type: coffee Number of servings: 3 what type of physical activity do you participate in: none ROS ROS ED Constitutional Constitutional ED: Denies fever(s) Eyes Eyes: Denies change in vision or discharge from eye(s) ENT ENT ED: Denies discharge from eye(s), rhinorrhea or sore throat Cardiovascular Cardiovascular: Denies chest pain or palpitations Respiratory/Chest Respiratory/Chest: Denies cough or dyspnea Gastrointestinal Gastrointestinal: Denies abdominal pain, nausea or vomiting Musculoskeletal Musculoskeletal: Denies back pain or extremity pain Integumentary Denies Abrasions or rash Neurologic Neurologic: Denies headache(s) or weakness Psychiatric Psychiatric: Denies anxiety or depression Allergic/Immunologic Allergic/Immunologic ED: Denies lip swelling or urticaria EXAM Physical Exam Const Vital Signs: 11/10/23 14:02 11/10/23 14:12 11/10/23 14:35 Temperature 99 F Temperature Source Oral Pulse Rate 92 74 Respiratory Rate 14 17 Blood Pressure 189/158 H 170/105 H Blood Pressure Mean 168 126 Pulse Ox 95 95 94 Oxygen Delivery Method Room Air Room Air Room Air Positive well nourished and well developed General Appearance ED: well developed HEENT Reports moist mucous membranes Eyes EOMs intact bilaterally Chest Wall inspection of chest normal and palpation of chest normal Resp normal respiratory effort and clear to auscultation bilaterally Cardio Rate: regular rate Rhythm: regular rhythm GI soft to palpation and non-tender Extremity normal to inspection Neuro oriented x3 and no sensory deficits noted Neuro Narrative: NIH equals 0 on arrival to ED. Motor Exam: strength 5/5 throughout Psych mental status grossly normal Skin no wounds MDM MDM MDM Narrative Medical decision making narrative: Patient's NIH score is currently negative. Given her symptoms within a 24-hour window stroke alert was initiated. Patient placed on library monitor. EKG obtained to evaluate for cardiac arrhythmia/ischemia. IV line established. Labwork obtained to evaluate for leukocytosis, anemia, and electrolyte derangement. Patient had blood work obtained just a couple weeks ago with normal renal function. She will be sent for emergent CT head along with CTA of the head and neck. History & Record Review Discussion w/independent historian: Patient and Significant other Additional record(s) reviewed:: Prior labs Lab Data Attestation: I reviewed the patient's lab results. Labs: Laboratory Results - last 24 hr 11/10/23 14:10 WBC 9.8 RBC 5.20 Hgb 15.3 H Hct 47.2 H MCV 90.8 MCH 29.4 MCHC 32.4 RDW Std Deviation 45.4 H RDW Coeff of Joleen 13.4 Plt Count 331 MPV 9.8 Immature Gran % (Auto) 0.200 Neut % (Auto) 59.6 Lymph % (Auto) 32.2 [place] % (Auto) 5.4 Eos % (Auto) 2.0 Baso % (Auto) 0.6 Absolute Neuts (auto) 5.8 Absolute Lymphs (auto) 3.15 Nucleated RBC % 0 PT 13.0 INR 1.0 APTT 27.6 Sodium 138 Potassium 4.2 Chloride 105 Carbon Dioxide 31.0 Anion Gap 2 L BUN 15 Creatinine 0.74 Estim Creat Clear Calc 69.82 Est GFR (MDRD) Af Amer 102 Est GFR (MDRD) Non-Af 84 BUN/Creatinine Ratio 20.4 H Glucose 111 H Calcium 9.4 Troponin I High Sens 14 Radiography Chest X-Ray - ED: 1 View, Read by ED Physician, Chronic Changes and No Infiltrates Diagnostic Testing: Clinical Impression(s) from Imaging Studies Brain CT 11/10/23 14:05 IMPRESSION: Chronic involutional changes of the brain. N.B. : The above Results were Read Back by Marty Mari MD to Dr Carmita MD, and understanding confirmed on 11/10/2023 14:26:25 (ET). Electronically Signed: Marty Mari MD at 14:27 EDT , ADDENDUM: 11/10/23 1434 IMPRESSION: Chronic involutional changes of the brain. N.B. : The above Results were Read Back by Marty Mari MD to Dr Carmita MD, and understanding confirmed on 11/10/2023 14:26:25 (ET). Electronically Signed: Marty Mari MD at 14:27 EDT , Head/Neck CTA 11/10/23 14:20 IMPRESSION: Moderate degree of narrowing at the origin of the right internal carotid artery. Mild degree of narrowing at the origin of left internal carotid artery. Nonvisualization of the right A1 segment of the anterior cerebral artery. N.B. : The above Results were Read Back by Marty Mari MD to Dr Carmita MD, and understanding confirmed on 11/10/2023 14:45:00 (ET). Electronically Signed: Marty Mari MD at 14:46 EDT , ADDENDUM: 11/10/23 1453 IMPRESSION: Moderate degree of narrowing at the origin of the right internal carotid artery. Mild degree of narrowing at the origin of left internal carotid artery. Nonvisualization of the right A1 segment of the anterior cerebral artery. N.B. : The above Results were Read Back by Marty Mari MD to Dr Carmita MD, and understanding confirmed on 11/10/2023 14:45:00 (ET). Electronically Signed: Marty Mari MD at 14:46 EDT , EKG Initial EKG: Attestation: I personally reviewed and interpreted this EKG as follows: Interpretation: Sinus Rhythm (Sinus at 72 with no acute ischemia.) Treatment and Re-Evaluation Narrative: CBC was normal white count 9.8 with a hemoglobin concentrated at 15.3. Differential unremarkable. Coags are normal. Chemistry studies are unremarkable with a glucose of 111. Troponin is normal at 14. EKG is sinus rhythm at 72 bpm with PACs. No acute ischemia noted. Portable chest x-ray per my interpretation was chronic changes with no focal infiltrate. Noncontrast head CT reveals chronic involutional changes. Old lacunar infarcts were noted. CTA of the head and neck reveals moderate stenosis at the origin of the right carotid between 50 and 69%. No LVO. Patient was seen and evaluated by [facility] neurology. They agree that her symptoms are consistent with a TIA. As long as her CTA was negative plan was to admit her locally for further stroke workup. I will speak with the hospitalist. Discharge Plan Triage Chief Complaint: Stroke Alert Other Complaint: Neuro S/Sx ED Provider: Nadja Vizcarra Dx/Rx/DC Orders Clinical Impression: Brain TIA Prescriptions: No Action duloxetine 60 mg capsule,delayed release(DR/EC) 60 mg PO DAILY Qty: 60 2RF Rx Instructions: Take 30 mg daily x 1 week then increase to 60 mg daily. aspirin 81 MG tablet 81 mg PO DAILY@0800 Qty: 30 0RF potassium chloride 20 mEq tablet,ER particles/crystals 20 meq PO DAILY Qty: 2 0RF atorvastatin 80 mg tablet 80 mg PO QHS Qty: 90 3RF clopidogrel [Plavix] 75 mg tablet 75 mg PO DAILY Qty: 90 3RF hydrochlorothiazide 25 mg tablet 25 mg PO DAILY Qty: 90 3RF losartan 100 mg tablet 100 mg PO DAILY Qty: 90 3RF metoprolol tartrate 25 mg tablet 25 mg PO BID Qty: 180 3RF nitroglycerin 0.4 mg tablet, sublingual 0.4 mg sublingual Q5M PRN (Reason: Chest Pain) Qty: 25 3RF amlodipine 10 mg tablet 10 mg PO DAILY Qty: 90 3RF albuterol sulfate 90 mcg/actuation HFA aerosol inhaler 1 - 2 puff inhalation Q6H PRN PRN (Reason: Sob &/Or Wheezing) Qty: 8.5 0RF pramipexole 1.5 mg tablet extended release 24 hr 1.5 mg PO QHS Qty: 90 0RF Primary Care Provider: Neida Traore Referrals: Neida Traore MD [Primary Care Provider] - Disposition Disposition: [facility]
[2023-11-10 14:19] LABS: Absolute Lymphocyte Count 3.15 X10^3/uL (0.83-4.51); Absolute Neutrophil Count 5.8 X10^3/uL (2.0-7.7); Basophil# 0.06 X10^3/uL; Basophil% 0.6 % (0-1); Hematocrit 47.2 % (37-47); Hemoglobin 15.3 g/dL (12.0-15.0); Lymphocyte # 3.15 X10^3/ul (0.83-4.51); Lymphocyte % 32.2 % (19-41); Mean Corp Hgb Conc 32.4 g/dL (32-36); Mean Corpuscular Hgb 29.4 pg (27.0-32.0); Mean Corpuscular Volume 90.8 fL (81-99); Mean Platelet Vol. 9.8 fl (6.2-12.0); Monocyte# 0.53 X10^3/uL; Monocyte% 5.4 % (0-10); NRBC Flagged by Analyzer 0 % (0-5); Neutrophil # 5.81 X10^3/uL (2.7-7.7); Neutrophil % 59.6 % (47-70); Platelet Count 331 K/mm3 (150-450); RBC Distribution Width CV 13.4 % (11.6-14.6); RBC Distribution Width SD 45.4 fl (35.1-43.9); White Blood Count 9.8 K/mm3 (4.4-11.0)
--- NOTE | 2023-11-10 14:20 | CT_ITS ---
STUDY: CTA HEAD AND NECK WITH CONTRAST REASON FOR EXAM: Female, 68 years old. Neuro deficit, acute, stroke suspected RADIATION DOSAGE (If Supplied By Facility): CTDIvol = ( 19.34 ) mGy, DLP = ( 709.48 ) mGycm TECHNIQUE: CT angiography was performed with a multi-detector CT scanner. Data acquisition was obtained from the skull base through the vertex following intravenous administration of IV 100mL [id number]-[id number]. MIP images were reconstructed from the axial data set. Post-processing of the angiographic images was performed, with multiplanar reformation and 3D reconstruction. Individualized dose optimization techniques were used for this CT. COMPARISON: No relevant priors. FINDINGS: Normal bilateral petrous carotid arteries. There is calcified plaque formation of the right cavernous carotid artery, with a mild stenosis (less than 50%). There is calcified plaque formation of the left cavernous carotid artery, with a moderate stenosis (50-75%). There is non-visualization of the right A1 segment of the anterior cerebral arteries consistent with either aplastic development or an occlusion. Normal left A1 segments of the anterior cerebral artery. Normal intact anterior communicating artery (ACOM). Normal bilateral A2 segments of the anterior cerebral arteries. Normal right M1 and M2 segments of the middle cerebral arteries, with a normal M1 bifurcation. Normal left M1 and M2 segments of the middle cerebral arteries, with a normal M1 bifurcation. 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 There is a persistent origin of the left posterior cerebral artery with absence of the posterior communicating artery (PCOM). Normal bilateral vertebral arteries. Normal basilar artery with a normal basilar bifurcation. The visualized bilateral superior cerebellar (SCA) arteries are normal. Normal bilateral P1, P2 and visualized P3 segments of the posterior cerebral arteries. There is no demonstrated aneurysm of the native of [place]. AORTIC ARCH: There is atherosclerotic calcific plaque formation of the aortic arch and great vessels arising from the aortic arch, without a hemodynamically significant stenosis. There is a normal origin of the brachiocephalic, left common carotid, and left subclavian arteries. Calcified plaque at the origin of the right brachiocephalic artery as well as the left common carotid artery and left subclavian artery. RIGHT CAROTID ARTERIES: Normal right common carotid artery (CCA). Normal right common carotid bulb. There is moderate atherosclerotic plaque formation of the origin of the right internal carotid artery with an estimated stenosis of 50-69% stenosis. Normal visualized cervical portion of the right internal carotid artery. Normal origin of the right external carotid artery (ECA). LEFT CAROTID ARTERIES: Normal left common carotid artery (CCA). Normal left common carotid bulb. There is mild atherosclerotic plaque formation of the origin of the left internal carotid artery with less than 50% cross sectional diameter stenosis. Normal visualized cervical portion of the left internal carotid artery. Normal origin of the left external carotid artery (ECA). VERTEBRAL ARTERIES: Normal bilateral vertebral arteries. CT/STROKE CTA Head AND Neck W/Con IMPRESSION: Moderate degree of narrowing at the origin of the right internal carotid artery. Mild degree of narrowing at the origin of left internal carotid artery. Nonvisualization of the right A1 segment of the anterior cerebral artery. N.B. : The above Results were Read Back by Marty Mari MD to Dr Carmita MD, and understanding confirmed on 11/10/2023 14:45:00 (ET). Electronically Signed: Marty Mari MD at 14:46 EDT ,
[2023-11-10 14:30] LABS: Partial Thromboplast Time 27.6 Seconds (24.1-36.2)
[2023-11-10] MEDS: Labetalol (Prefilled) 20 MG/4 ML IV (14:32)
[2023-11-10 14:37] LABS: Anion Gap 2 (5-15); BUN 15 mg/dL (7-18); BUN/Creat Ratio 20.4 RATIO (10-20); Calcium,Total 9.4 mg/dL (8.5-10.1); Chloride 105 mmol/L (98-107); Creatinine, Serum 0.74 mg/dL (0.55-1.02); EST Glomerular Filtration Rate 84 mL/min (>60); Est Glom Filt Rate - Afr Amer 102 mL/min (>60); Estimated Creatinine Clearance 69.82 ml/min; Glucose 111 mg/dL (74-106); Potassium 4.2 mmol/L (3.5-5.1); Sodium Level 138 mmol/L (136-145); Troponin-I HS 14 pg/mL (3.0-54.0)
--- NOTE | 2023-11-10 15:25 | HP.PCM.HOS_ITS ---
HPI - General General Date of Admission: 11/10/23 Date of Service: 11/10/23 Chief Complaint: Left arm weakness and language deficit about 1 PM today HPI Narrative GIOVANNI LOMAX, is a 68 F With no prior history of stroke came to ED with slu rred speech, mild language deficit along with left arm weakness started 40 minutes prior to arrival about 1 PM. Patient is accompanied with her . Her said symptoms lasted for about few minutes but as per ED physician lasted within 10 minutes. She had similar instance about 2 to 3 days ago with left arm weakness that also lasted for few minutes on that occasion. By that time patient came to ED NIH stroke score 0. No nausea vomiting vertigo. Patient has history of coronary artery status post stents, COPD and still smokes a pack per day. Blood pressure in ED was high 189/158 and had labetalol [address] head does not show acute stroke. Patient is further admitted. Labs, vitals, and imaging and EKG all reviewed discussed assessment and plan. [facility] Medical History Anxiety and depression Atherosclerotic heart disease of [place] coronary artery without angina pectoris Chronic pain Colon cancer screening COPD (chronic obstructive pulmonary disease) Depression Flu vaccine need Fracture Health care maintenance History of fracture of clavicle Hyperlipidemia Hypertension Left hand pain Osteoporosis Patient noncompliance Pre-op chest exam ST elevation myocardial infarction (STEMI) Tobacco abuse Home Medications aspirin 81 mg tablet,delayed release 81 mg PO DAILY@0800 #30 tabs 01/12/19 [Rx Last Taken Unknown] atorvastatin 80 mg tablet 80 mg PO QHS #90 tabs 04/29/23 [Rx Last Taken Unknown] clopidogrel 75 mg tablet (Plavix) 75 mg PO DAILY #90 tabs 04/29/23 [Rx Last Taken Unknown] hydrochlorothiazide 25 mg tablet 25 mg PO DAILY #90 tabs 04/29/23 [Rx Last Taken Unknown] losartan 100 mg tablet 100 mg PO DAILY dose increase #90 tabs 04/29/23 [Rx Last Taken Unknown] metoprolol tartrate 25 mg tablet 25 mg PO BID #180 tabs 04/29/23 [Rx Last Taken Unknown] nitroglycerin 0.4 mg sublingual tablet 0.4 mg sublingual Q5M PRN Chest Pain #25 tabs 04/29/23 [Rx Last Taken Unknown] amlodipine 10 mg tablet 10 mg PO DAILY #90 tabs 05/30/23 [Rx Last Taken Unknown] albuterol sulfate 90 mcg/actuation aerosol inhaler 1 - 2 puff inhalation Q6H PRN PRN Sob &/Or Wheezing #8.5 grams 08/08/23 [Rx Last Taken Unknown] pramipexole 1.5 mg tablet,extended release 24 hr 1.5 mg PO QHS restless legs #90 tabs 11/08/23 [Rx Last Taken Unknown] albuterol sulfate 90 mcg/actuation aerosol inhaler (ProAir HFA) 2 inh inhalation Q6H PRN shortness of breath or wheezing 11/10/23 [History Last Taken Unknown] Allergy/AdvReac Type Severity Reaction Status Date / Time No Known Allergies Allergy Verified 10/31/23 10:20 Family History Father , 52 Myocardial infarction Heart disease Hyperlipemia Brother Myocardial infarction CAD (coronary artery disease) CABG and stents Mother Arthritis Depression Osteoporosis Seizures Son Suicide Depression Other Cancer Surgical History History of hysterectomy History of oophorectomy History of shoulder surgery History of tonsillectomy Stented coronary artery (01/10/19) Social History housing: house Smoking Status: Current every day smoker tobacco type: cigarettes Tobacco: How many years used: 50 alcohol intake: current alcohol intake frequency: holidays/special occasions only Alcohol type: wine substance use type: marijuana caffeine: Yes Type: coffee Number of servings: 3 what type of physical activity do you participate in: none ROS ROS Narrative Constitutional: Denies acute fatigue and weakness. No fever. HEENT: Reports systems reviewed and no addt'l complaints, except as documented Respiratory/Chest: History of COPD. Active smoker. No acute shortness of breath or respiratory distress or wheezing. CVS: No chest pain pressure or tightness. Gastrointestinal: Denies coffee ground emesis, hematemesis or vomiting Genitourinary: Denies burning urination or new urinary tract symptoms Musculoskeletal: Denies acute joint pain or limited range of motion. No acute injury Neurologic: Denies seizure-like symptoms. Rest as described in HPI skin: No ulcer. No rash Endocrinology: Reports systems reviewed and no addt'l complaints, except as documented Hematologic/Lymphatic: Reports systems reviewed and no addt'l complaints, except as documented Rest 14 ROS are negative except as mentioned in HPI Vital Signs Vital Signs Vital Signs: 11/10/23 14:02 11/10/23 14:12 11/10/23 14:35 Temperature 99 F Temperature Source Oral Pulse Rate 92 74 Respiratory Rate 14 17 Blood Pressure 189/158 H 170/105 H Blood Pressure Mean 168 126 Pulse Ox 95 95 94 Oxygen Delivery Method Room Air Room Air Room Air 11/10/23 15:01 11/10/23 15:05 Temperature Temperature Source Pulse Rate 73 74 Respiratory Rate 18 16 Blood Pressure 150/80 H 150/81 H Blood Pressure Mean 103 104 Pulse Ox 94 98 Oxygen Delivery Method Room Air Weight Weight: 171 lb 8.314 oz Body Mass Index (BMI) 29.4 Physical Exam Narrative General: Alert, Oriented x3, Cooperative HEENT: Atraumatic, PERRLA, EOMI, Normocephalic Oral: Oral mucosa moist. No Gingival or Mucosal Lesions/ Ulcerations Neck: Supple, No JVD, Negative Carotid Bruits Chest wall/Lungs: Air entry diminished in bilateral lung bases. No c repitation/rhonchi Cardiovascular: Regular rate, Regular Rhythm, Normal S1, Normal S2, systolic murmur present Abdomen: Bowel Sounds Present, Soft, Non Tender, Non-Distended : No dysuria. No renal angle tenderness. No suprapubic tenderness. Extremities: No edema, Capillary Refill Less than 3 Seconds Skin: No rashes, No breakdown Musculoskeletal: No acute tenderness to Palpation of Joints or Extremities. ROM full and intact. Neurological: Cranial nerves II-XII grossly intact, NIH stroke scale 0. DTR 2+/4. No acute focal neurological deficit. Psych/Mental Status: Normal Affect, Appropriate. Results Lab / Micro Data 11/10/23 14:10 11/10/23 14:10 Labs: Laboratory Results - last 24 hr 11/10/23 14:10: WBC 9.8, RBC 5.20, Hgb 15.3 H, Hct 47.2 H, MCV 90.8, MCH 29.4, MCHC 32.4, RDW Std Deviation 45.4 H, RDW Coeff of Joleen 13.4, Plt Count 331, MPV 9.8, Immature Gran % (Auto) 0.200, Neut % (Auto) 59.6, Lymph % (Auto) 32.2, [place] % (Auto) 5.4, Eos % (Auto) 2.0, Baso % (Auto) 0.6, Absolute Neuts (auto) 5.8, Absolute Lymphs (auto) 3.15, Nucleated RBC % 0, PT 13.0, INR 1.0, APTT 27.6, Sodium 138, Potassium 4.2, Chloride 105, Carbon Dioxide 31.0, Anion Gap 2 L, BUN 15, Creatinine 0.74, Estim Creat Clear Calc 69.82, Est GFR (MDRD) Af Amer 102, Est GFR (MDRD) Non-Af 84, BUN/Creatinine Ratio 20.4 H, Glucose 111 H, Calcium 9.4, Troponin I High Sens 14 Imaging Radiology Impression Brain CT 11/10/23 14:05 IMPRESSION: Chronic involutional changes of the brain. N.B. : The above Results were Read Back by Marty Mari MD to Dr Carmita MD, and understanding confirmed on 11/10/2023 14:26:25 (ET). Electronically Signed: Marty Mari MD at 14:27 EDT , ADDENDUM: 11/10/23 1434 IMPRESSION: Chronic involutional changes of the brain. N.B. : The above Results were Read Back by Marty Mari MD to Dr Carmita MD, and understanding confirmed on 11/10/2023 14:26:25 (ET). Electronically Signed: Marty Mari MD at 14:27 EDT , Chest X-Ray 11/10/23 14:05 IMPRESSION: Hyperinflation. The lungs are clear. Electronically Signed: Marty Mari MD at 14:58 EDT , Head/Neck CTA 11/10/23 14:20 IMPRESSION: Moderate degree of narrowing at the origin of the right internal carotid artery. Mild degree of narrowing at the origin of left internal carotid artery. Nonvisualization of the right A1 segment of the anterior cerebral artery. N.B. : The above Results were Read Back by Marty Mari MD to Dr Carmita MD, and understanding confirmed on 11/10/2023 14:45:00 (ET). Electronically Signed: Marty Mari MD at 14:46 EDT , ADDENDUM: 11/10/23 1453 IMPRESSION: Moderate degree of narrowing at the origin of the right internal carotid artery. Mild degree of narrowing at the origin of left internal carotid artery. Nonvisualization of the right A1 segment of the anterior cerebral artery. N.B. : The above Results were Read Back by Marty Mari MD to Dr Carmita MD, and understanding confirmed on 11/10/2023 14:45:00 (ET). Electronically Signed: Marty Mari MD at 14:46 EDT , Assessment & Plan Assessment/Plan (1) Brain TIA: PLAN: Plan This is a 68-year-old female is being admitted for left arm weakness, mild language deficit lasted for few minutes and resolved by the time she came to ED. 1. Most probably TIA: Patient is being admitted in PCU. CT head shows chronic involutional changes but no acute intracranial abnormality. CTA head and neck shows moderate degree of narrowing at origin of right ICA, mild degree of narrowing at origin of left ICA. Nonvisualization of right A1 segment of KEZIA. PT, OT, speech therapy/swallow evaluation and management, nursing NIH stroke scale, BP and glucose monitoring and control as per stroke protocol. TSH, A1c fasting lipid profile tomorrow AM. MRI brain and 2D echo with bubble contrast study ordered 2. History of inferior wall STEMI, CAD: Patient was last admitted in January 2019 for inferior wall STEMI with acute in-stent thrombosis after initial PCI of proximal RCA: Patient had PCI with stent on that occasion. Patient used to follow Dr. Zheng but currently she is not following any online media director. Twel ve-lead EKG shows normal sinus rhythm, PACs at 72 bpm, QTc 479 ms. Troponin normal. Continue home cardiac medications. No acute issues Last echo in May 2022 Left ventricular systolic function is hyperdynamic. The estimated ejection fraction is 75 %. There is mild mitral annular calcification. Extension of the mitral annular calcification onto the posterior mitral valve leaflet. Trivial mitral valve insufficiency. Trivial tricuspid valve insufficiency. The aortic valve leaflets are not well visualized, however, based upon the 2D echocardiographic images obtained there appears to be moderate focal thickening present with no obvious significant restriction or insufficiency. Epicardial fat. Right ventricular systolic pressure estimated to be 27 mmHg. No evidence for diastolic dysfunction. 2. COPD with active smoking: Patient follows Dr. Quiles. Last office visit in April 2022. Last PFT on May 2022 partially reversible severe large a irways obstructive ventilatory defect with associated air trapping. 3. Hypertension:Blood pressure high but within guidelines of TIA 4. Dyslipidemia: High intensity statin. Fasting profile tomorrow AM 5. DVT prophylaxis high risk: Lovenox 40 mg subcu daily. Discontinue if platelet count drops less than 50,000 or hemoglobin less than 8 g% Living will/advanced directive/end of life care: Patient does not have living will or advanced directive. After discussion of benefits/risks procedures involved with full code, DNR CC arrest and DNR CC, the patient opted for full code. Her is next of kin Patient does want artificial life support including intubation, tube feed, ventilator and/chest compression, central venous catheter, vasopressor and DC shock if needed Total time spent in [id number] encounter in discussion of advanced directive 17 minutes. Laboratory Results 11/10/23 14:10: WBC 9.8, RBC 5.20, Hgb 15.3 H, Hct 47.2 H, MCV 90.8, MCH 29.4, MCHC 32.4, RDW Std Deviation 45.4 H, RDW Coeff of Joleen 13.4, Plt Count 331, MPV 9.8, Immature Gran % (Auto) 0.200, Neut % (Auto) 59.6, Lymph % (Auto) 32.2, [place] % (Auto) 5.4, Eos % (Auto) 2.0, Baso % (Auto) 0.6, Absolute Neuts (auto) 5.8, Absolute Lymphs (auto) 3.15, Nucleated RBC % 0, PT 13.0, INR 1.0, APTT 27.6, Sodium 138, Potassium 4.2, Chloride 105, Carbon Dioxide 31.0, Anion Gap 2 L, BUN 15, Creatinine 0.74, Estim Creat Clear Calc 69.82, Est GFR (MDRD) Af Amer 102, Est GFR (MDRD) Non-Af 84, BUN/Creatinine Ratio 20.4 H, Glucose 111 H, Calcium 9.4, Troponin I High Sens 14 Clinical Impression(s) from Imaging Studies Brain CT 11/10/23 14:05 IMPRESSION: Chronic involutional changes of the brain. Chest X-Ray 11/10/23 14:05 IMPRESSION: Hyperinflation. The lungs are clear. Head/Neck CTA 11/10/23 14:20 IMPRESSION: Moderate degree of narrowing at the origin of the right internal carotid artery. Mild degree of narrowing at the origin of left internal carotid artery. Nonvisualization of the right A1 segment of the anterior cerebral artery. Charges/Coding Visit Charges Inpatient E&M: 62713 Init Hosp L3 Procedures Hospitalists Procedures: 47568 Advncd Care Plan 30 Min
--- NOTE | 2023-11-10 15:36 | CHAPLAIN ---
Type of Pastoral Visit ___ Initial Visit ___ Follow-up Visit ___ On-call Visit ___ General Patient Visit ___ Spiritual Assessment ___ Family Conference ___ Bereavement ___ Rapid Response ___ Code Blue ___ Other (describe below) Pastoral Care Referral From ___ Patient ___ Family ___ Nurse ___ Physician ___ Welding Supervisor ___ Service Center Specialist ___ Other (describe below) Sacrament/Intervention ___ Active listening ___ Anointing ___ Protestant ___ Bereavement ___ Communion ___ Hyacinth exploration ___ ___ Life review ___ Prayer ___ Reconciliation ___ Sacrament of Sick ___ Supportive presence ___ Wedding ___ Other (describe below) Pastoral Comments responded to stroke alert in ED; pt was just being taken to CT for testing; spouse was in the room; offered presence, support, and anything to help; spouse denies needs and explains recent pt health history; spouse was given a cup of water after asking for what he needed
[2023-11-10 16:03] LABS: Magnesium 2.1 mg/dL (1.6-2.6)
--- NOTE | 2023-11-10 16:20 | MRI_ITS ---
STUDY: MRI BRAIN WITHOUT CONTRAST REASON FOR EXAM: Female, 68 years old. stroke TECHNIQUE: Standardized multiplanar fat and water weighted pulse sequences were obtained. COMPARISON: 09/29/2017, CT earlier today FINDINGS: There is mild cerebral atrophy with widening of the extra-axial spaces and ventricular dilatation. There are a limited number of small white matter hyperintensities, distributed throughout the deep white matter tracts of the cerebral hemispheres, consistent with mild chronic white matter ischemic changes. There is no evidence for recent intracranial ischemia or other cause of cytotoxic edema on diffusion weighted imaging (DWI). Normal T2* images of the brain without demonstrated susceptibility artifact. There is no demonstrated hemosiderin stain. Normal bilateral basal ganglia. Normal thalami. There is no extra-axial fluid accumulation. Normal flow voids within the major intracranial circulation suggesting patency by spin echo criteria. Normal sella turcica, pituitary gland, infundibular stalk, optic chiasm and hypothalamus. Normal tectal plate and pineal gland. Normal midbrain, radha and medulla. Normal cerebellum. Normal basal cisterns. Normal bilateral temporal bones. Normal bilateral internal auditory canals. No demonstrated orbital abnormality, within the constraints of a routine brain study. Normal visualized paranasal sinuses. Normal calvarium and skull base. Normal visualized soft tissue structures. Normal visualized upper cervical spine. MRI/Brain without Contrast IMPRESSION: Involutional changes of the brain, as described above. No acute infarct. Electronically Signed: Rome Flores MD at 23:35 EDT ,
--- NOTE | 2023-11-10 16:20 | ECHOD_ITS ---
Reason For Study: TIA/CVA Procedure This was a 2D Doppler, Color Flow transthoracic echocardiogram. The study was technically difficult. Definity declined. Exam performed portable in patient room. Left Ventricle Normal LV size. Moderate concentric left ventricular hypertrophy. Left ventricular systolic function is normal. The left ventricular ejection fraction is 60 %. Stage 1 diastolic dysfunction. No regional wall motion abnormalities noted. Right Ventricle Normal RV size. Normal systolic function. Atria Normal left atrium. Normal right atrium. Bubble contrast study negative for right to left interatrial shunt. Mitral Valve Normal mitral valve. Tricuspid Valve Normal tricuspid valve. Aortic Valve Trisinus/trileaflet aortic valve. Mild focal aortic valve calcification. Pulmonic Valve Normal pulmonic valve. Great Vessels Normal aortic root. The pulmonary artery is normal size. Normal inferior vena cava. Pericardium/Pleural No pericardial effusion. Medication Performed a rapid injection of agitated mix of 9 cc saline and 1cc air to assess for atrial septal defect. MMode/2D Measurements & Calculations LVIDd: 3.3 cm IVSd: 1.5 cm LAV(MOD-bp): 34.4 ml LVIDs: 2.5 cm LVPWd: 1.3 cm FS: 23.1 % LAV(MOD-bp) Indexed: 19.0 ml/m2 LAV(MOD-sp2): 41.1 ml LAV(MOD-sp4): 27.6 ml SV(MOD-sp4): 29.6 ml SV(sp4-el): 31.8 ml LVAd ap4: 22.3 cm2 LVLd ap4: 7.8 cm EDV(MOD-sp4): 54.8 ml EDV(sp4-el): 53.9 ml LVAs ap4: 13.0 cm2 LVLs ap4: 6.5 cm ESV(MOD-sp4): 25.2 ml ESV(sp4-el): 22.2 ml EF(MOD-sp4): 54.0 % EF(sp4-el): 58.9 % LA dimension(2D): 3.5 cm LA A4 area: 12.3 cm2 RA A4 area: 16.2 cm2 TAPSE: 2.1 cm Time Measurements MV dec time: 0.21 sec Doppler Measurements & Calculations MV E max flash: 84.6 cm/sec Lat Peak E' Flash: 7.8 cm/sec Med Peak E' Flash: 7.1 cm/sec MV A max flash: 95.0 cm/sec E/E' lat: 10.9 E/E' med: 11.9 MV E/A: 0.89 MV V2 max: 109.5 cm/sec MV dec slope: 399.2 cm/sec2 Ao V2 max: 113.1 cm/sec MV max P.8 mmHg Ao max P.1 mmHg MV V2 mean: 62.2 cm/sec Ao V2 mean: 71.0 cm/sec MV mean P.8 mmHg Ao mean P.4 mmHg MV V2 VTI: 41.1 cm Ao V2 VTI: 27.3 cm AV (velocity ratio): 1.1 LV V1 max: 125.7 cm/sec PA V2 max: 65.5 cm/sec LV V1 max P.3 mmHg PA V2 mean: 46.2 cm/sec LV V1 mean P.0 mmHg LV V1 mean: 80.3 cm/sec LV V1 VTI: 30.1 cm ECHO/Echo Complete Interpretation Summary Normal LV size. Moderate concentric left ventricular hypertrophy. Left ventricular systolic function is normal. The left ventricular ejection fraction is 60 %. Stage 1 diastolic dysfunction. Bubble contrast study negative for right to left interatrial shunt. Ordering Physician: Rafael Arreaga Referring Physician: Neida Traore Performed By: Rosa Maria Connor RCS
[2023-11-10] MEDS: 0.9% Normal Saline (1000mL) 1,000 ML 75 ML IV (17:10)
[2023-11-10] MEDS: Aspirin 81 MG TAB.CHEW PO (17:13)
[2023-11-10 17:23] LABS: Bedside Glucose 110 mg/dL (74-106)
[2023-11-10] MEDS: Pramipexole Di-HCl 1 MG Tablet 1.5 MG PO (21:42)
[2023-11-10] MEDS: Atorvastatin Calcium 80 MG Tablet PO (21:43)
[2023-11-10] MEDS: Metoprolol Tartrate 25 MG Tablet PO (21:43)
[2023-11-10 22:08] LABS: Bedside Glucose 172 mg/dL (74-106)
[2023-11-11] VITALS (7 sets, daily range): BP systolic 100–164; BP diastolic 64–86; PULSE 53–64; RESP 14–16; TEMP 36.4–36.8; O2SAT 93–96; BMI 28.6; BMI 29.1
[2023-11-11] MEDS: 0.9% Saline Lock 10 ML Syringe IV (00:20)
[2023-11-11 06:29] LABS: Absolute Lymphocyte Count 2.94 X10^3/uL (0.83-4.51); Basophil# 0.08 X10^3/uL; Eosinophil# 0.34 X10^3/uL; Eosinophils% 4.3 % (0-5); Hematocrit 41.2 % (37-47); Hemoglobin 13.1 g/dL (12.0-15.0); Lymphocyte # 2.94 X10^3/ul (0.83-4.51); Lymphocyte % 36.8 % (19-41); Mean Corp Hgb Conc 31.8 g/dL (32-36); Mean Corpuscular Hgb 28.9 pg (27.0-32.0); Mean Corpuscular Volume 90.7 fL (81-99); Mean Platelet Vol. 10.3 fl (6.2-12.0); Monocyte# 0.64 X10^3/uL; NRBC Flagged by Analyzer 0 % (0-5); Neutrophil # 3.98 X10^3/uL (2.7-7.7); Neutrophil % 49.6 % (47-70); Platelet Count 321 K/mm3 (150-450); RBC Distribution Width CV 13.6 % (11.6-14.6); RBC Distribution Width SD 45.4 fl (35.1-43.9); Red Blood Count 4.54 M/mm3 (4.2-5.4)
[2023-11-11 06:41] LABS: Bedside Glucose 97 mg/dL (74-106)
[2023-11-11] MEDS: hydroCHLOROthiazide 25 MG Tablet PO (08:22)
[2023-11-11] MEDS: Aspirin 81 MG TAB.CHEW PO (08:22)
[2023-11-11] MEDS: Metoprolol Tartrate 25 MG Tablet PO (08:22)
[2023-11-11] MEDS: Clopidogrel Bisulfate 75 MG Tablet PO (08:23)
[2023-11-11] MEDS: amLODIPine 10 MG Tablet PO (08:23)
[2023-11-11 08:36] LABS: Cholesterol 200 mg/dL (200); High Density Lipoprotein 42 mg/dL; Thyroid Stim Hormone (TSH) 0.85 uIU/mL (0.358-3.74); Triglycerides 93 mg/dL; Very Low Density Lipoprotein 19 mg/dL (5-40)
--- NOTE | 2023-11-11 10:52 | STROKE.CONS ---
Assessment and Plan: Stroke Assessment/Plan GIOVANNI LOMAX is a 68 F with a history of CAD s/p stent, COPD who presents for evaluation of transient left arm weakness and slurred speech that has resolved. Not TNK or IR candidate. Neurological examination shows Intact examination Neuroimaging shows No acute stroke. CTA: Moderate R ICA origin and mild left ICA stenosis. Possible symptomatic R ICA disease. In addition has intracranial atheroscrosis. LDL: 139 HbA1c: 5.6 Continue ASA/Plavix for now Continue statin for HLD. F/up formal ECHO result Consider Vascular surgery evaluation for ICA stenosis Thanks for the consult. I spent 40 minutes in evaluation of this patient. HPI Consult Data Date of Consult: 11/11/23 HPI Narrative HPI Narrative: GIOVANNI LOMAX, is a 68 F with CAD s/p stents, COPD who presents to ED with slurred speech, mild language deficit along with left arm weakness started 40 minutes prior to arrival about 1 PM. Patient is accompanied with her . Her said symptoms lasted for about few minutes but as per ED physician lasted within 10 minutes. She had similar instance about 2 to 3 days ago with left arm weakness that also lasted for few minutes on that occasion. By that time patient came to ED NIH stroke score 0. Denies other symptoms. Occasionally misses re medications. Continue sto smoke. has tried quitting in the past. [facility] Medical History (Updated 11/10/23 @ 16:25 by Linda Morgan) Anxiety Anxiety and depression Atherosclerotic heart disease of [place] coronary artery without angina pectoris Chronic pain Colon cancer screening COPD (chronic obstructive pulmonary disease) Depression Flu vaccine need Fracture Health care maintenance History of fracture of clavicle Hyperlipidemia Hypertension ICD (implantable cardioverter-defibrillator) in place Left hand pain Myocardial infarct Osteoporosis Patient noncompliance Pre-op chest exam Smoker ST elevation myocardial infarction (STEMI) Tobacco abuse Home Medications aspirin 81 mg tablet,delayed release 81 mg PO DAILY@0800 #30 tabs 01/12/19 [Rx Last Taken Unknown] atorvastatin 80 mg tablet 80 mg PO QHS #90 tabs 04/29/23 [Rx Last Taken Unknown] clopidogrel 75 mg tablet (Plavix) 75 mg PO DAILY #90 tabs 04/29/23 [Rx Last Taken Unknown] hydrochlorothiazide 25 mg tablet 25 mg PO DAILY #90 tabs 04/29/23 [Rx Last Taken Unknown] losartan 100 mg tablet 100 mg PO DAILY dose increase #90 tabs 04/29/23 [Rx Last Taken Unknown] metoprolol tartrate 25 mg tablet 25 mg PO BID #180 tabs 04/29/23 [Rx Last Taken Unknown] nitroglycerin 0.4 mg sublingual tablet 0.4 mg sublingual Q5M PRN Chest Pain #25 tabs 04/29/23 [Rx Last Taken Unknown] amlodipine 10 mg tablet 10 mg PO DAILY #90 tabs 05/30/23 [Rx Last Taken Unknown] albuterol sulfate 90 mcg/actuation aerosol inhaler 1 - 2 puff inhalation Q6H PRN PRN Sob &/Or Wheezing #8.5 grams 08/08/23 [Rx Last Taken Unknown] pramipexole 1.5 mg tablet,extended release 24 hr 1.5 mg PO QHS restless legs #90 tabs 11/08/23 [Rx Last Taken Unknown] albuterol sulfate 90 mcg/actuation aerosol inhaler (ProAir HFA) 2 inh inhalation Q6H PRN shortness of breath or wheezing 11/10/23 [History Last Taken Unknown] Allergy/AdvReac Type Severity Reaction Status Date / Time No Known Allergies Allergy Verified 10/31/23 10:20 Family History Father , 52 Myocardial infarction Heart disease Hyperlipemia Brother Myocardial infarction CAD (coronary artery disease) CABG and stents Mother Arthritis Depression Osteoporosis Seizures Son Suicide Depression Other Cancer Surgical History History of hysterectomy History of oophorectomy History of shoulder surgery History of tonsillectomy Stented coronary artery (01/10/19) Social History housing: house Smoking Status: Current every day smoker tobacco type: cigarettes Tobacco: How many years used: 50 alcohol intake: current alcohol intake frequency: holidays/special occasions only Alcohol type: wine substance use type: marijuana caffeine: Yes Type: coffee Number of servings: 3 what type of physical activity do you participate in: none Vital Signs Vital Signs Vital Signs: 11/10/23 14:02 11/10/23 14:12 11/10/23 14:35 Temperature 99 F Temperature Source Oral Pulse Rate 92 74 Pulse Strength Respiratory Rate 14 17 Respiratory Effort Respiratory Depth Respiratory Pattern Blood Pressure 189/158 H 170/105 H Blood Pressure Mean 168 126 Blood Pressure Source Blood Pressure Position Blood Pressure Location Pulse Ox 95 95 94 Oxygen Delivery Method Room Air Room Air Room Air 11/10/23 15:01 11/10/23 15:05 11/10/23 15:30 Temperature Temperature Source Pulse Rate 73 74 72 Pulse Strength Respiratory Rate 18 16 16 Respiratory Effort Respiratory Depth Respiratory Pattern Blood Pressure 150/80 H 150/81 H 144/86 H Blood Pressure Mean 103 104 105 Blood Pressure Source Blood Pressure Position Blood Pressure Location Pulse Ox 94 98 94 Oxygen Delivery Method Room Air Room Air 11/10/23 16:00 11/10/23 16:06 11/10/23 16:26 Temperature 98 F 98.6 F Temperature Source Oral Pulse Rate 64 65 65 Pulse Strength Respiratory Rate 16 16 18 Respiratory Effort Respiratory Depth Respiratory Pattern Blood Pressure 146/75 H 146/75 H 164/91 H Blood Pressure Mean 98 98 115 Blood Pressure Source Monitor Blood Pressure Position Supine Blood Pressure Location Right Arm Pulse Ox 98 98 95 Oxygen Delivery Method Room Air Room Air 11/10/23 16:48 11/10/23 17:27 11/10/23 20:40 Temperature 98.6 F Temperature Source Oral Pulse Rate 64 Pulse Strength Respiratory Rate 18 Respiratory Effort Normal Non-Labored Respiratory Depth Normal Respiratory Pattern Normal Blood Pressure 164/91 H Blood Pressure Mean 115 Blood Pressure Source Blood Pressure Position Blood Pressure Location Pulse Ox 95 95 Oxygen Delivery Method Room Air Room Air Room Air 11/10/23 20:26 11/10/23 21:43 11/10/23 22:00 Temperature 98.1 F Temperature Source Oral Pulse Rate 65 65 Pulse Strength Normal (2+) Respiratory Rate 14 Respiratory Effort Respiratory Depth Respiratory Pattern Blood Pressure 133/81 H 133/81 H Blood Pressure Mean 98 Blood Pressure Source Monitor Blood Pressure Position Semi-Fowlers Blood Pressure Location Right Arm Pulse Ox 94 Oxygen Delivery Method Room Air 11/10/23 20:09 11/10/23 20:46 11/11/23 00:26 Temperature 98.1 F 98.2 F Temperature Source Oral Oral Pulse Rate 65 53 L Pulse Strength Respiratory Rate 14 14 Respiratory Effort Normal Non-Labored Respiratory Depth Normal Respiratory Pattern Normal Blood Pressure 133/81 H 123/64 H Blood Pressure Mean 98 83 Blood Pressure Source Monitor Blood Pressure Position Semi-Fowlers Blood Pressure Location Right Arm Pulse Ox 94 93 Oxygen Delivery Method Room Air Room Air Room Air 11/11/23 03:22 11/11/23 03:53 11/11/23 08:22 Temperature 98.1 F Temperature Source Oral Pulse Rate 63 64 Pulse Strength Respiratory Rate 16 Respiratory Effort Normal Non-Labored Respiratory Depth Normal Respiratory Pattern Normal Blood Pressure 135/86 H Blood Pressure Mean 102 Blood Pressure Source Monitor Blood Pressure Position Semi-Fowlers Blood Pressure Location Right Arm Pulse Ox 93 Oxygen Delivery Method Room Air Room Air 11/11/23 09:00 11/11/23 09:52 11/11/23 06:56 Temperature 98.1 F 98.1 F Temperature Source Oral Oral Pulse Rate 64 64 Pulse Strength Respiratory Rate 16 16 Respiratory Effort Respiratory Depth Respiratory Pattern Blood Pressure 164/83 H 164/83 H Blood Pressure Mean 110 110 Blood Pressure Source Monitor Blood Pressure Position Semi-Fowlers Blood Pressure Location Right Arm Pulse Ox 93 93 96 Oxygen Delivery Method Room Air Room Air Room Air Weight Weight: 77 kg Body Mass Index (BMI) 29.1 EEG Results Procedure Details EEG Procedure Details: GIOVANNI LOMAX is a 68 year old F with a past medical history of , who presents for evaluation of Electroencephalogram on DATE at TIME NIHSS NIHSS Nursing Documentation NIHSS Nursing Documentation: NIHSS: Ischemic Stroke/TIA Start: 11/10/23 16:20 Text: For PCU Patients: NIH and Neuro Check every 4 Status: Complete hours, PRN and with change in RN caregiver. Freq: [id number] Protocol: Activity Type Activity Date Activity User E-sign Co-sign Detail Recorded Client Recorded Date Recorded By Document 11/11/23 00:26 Marilyn Desktop 11/11/23 00:27 Marilyn 11/11/23 00:26 NIH Stroke Scale [NIHSS] A score of 0 is normal or asymptomatic . Total possible score is 42. Inpatient: RN or Physician to activate a stroke alert for onset of new stroke symptoms or with NIHSS increase >/= 3 points. Following change in neurological status, NIHSS will be performed per physician order or more frequently PRN. -1a. Level of Consciousness Alert; keenly responsive -1b. LOC Questions Answers BOTH questions correctly. -1c. LOC Commands Performs both tasks correctly . -2. Best Gaze Normal -3. Visual No visual loss -4. Facial Palsy Normal symmetrical movements -5a. Left Arm No drift; arm holds 90 (or 45 ) degrees for full 10 seconds -5b. Right Arm No drift; arm holds 90 (or 45 ) degrees for full 10 seconds -6a. Left Leg No drift; leg holds 30-degree position for full 5 seconds -6b. Right Leg No drift; leg holds 30-degree position for full 5 seconds -7. Limb Ataxia Absent -8. Sensory Normal; no sensory loss -9. Best Language No aphasia; normal -10. Dysarthria Normal -11. Extinction and Inattention No abnormality -Total 0 Query Text:A score of 0 is normal or asymptomatic. Total possible score is 42 . ED: Notify Physician for NIHSS increase by > / = 3 points. Inpatient: RN or Physician to activate a stroke alert for NIHSS increase of > / = 3 points. Coma Scale [Assess] -Eye Opening Spontaneous -Motor Obeys Commands -Verbal Oriented [Total] -Coma Scale Total 15 NIHSS 1a. Level of Consciousness: Alert; keenly responsive 1b. LOC Questions: Answers BOTH questions correctly. 1c. LOC Commands: Performs both tasks correctly. 2. Best Gaze: Normal 3. Visual: No visual loss 4. Facial Palsy: Normal symmetrical movements 5a. Left Arm: No drift; arm holds 90 (or 45) degrees for full 10 seconds 5b. Right Arm: No drift; arm holds 90 (or 45) degrees for full 10 seconds 6a. Left Leg: No drift; leg holds 30-degree position for full 5 seconds 6b. Right Leg: No drift; leg holds 30-degree position for full 5 seconds 7. Limb Ataxia: Absent 8. Sensory: Normal; no sensory loss 9. Best Language: No aphasia; normal 10. Dysarthria: Normal 11. Extinction and Inattention: No abnormality Total: 0 Physical Exam Const General Appearance: cooperative, comfortable, well kempt and well developed HEENT normocephalic and head/scalp atraumatic Eyes EOMs intact bilaterally Neck full ROM Resp normal respiratory effort Neuro oriented x3 Neuro Narrative: Awake, alert, OX3 Cranial nerves intact Motor: 5/5 Sensation: intact No ataxia Psych mental status grossly normal, thought process normal, cooperative, affect normal, speech normal and activity/motor behavior normal Lab / Micro Data 11/11/23 05:30 11/10/23 14:10 Labs: Laboratory Results - last 24 hr 11/10/23 14:10: WBC 9.8, RBC 5.20, Hgb 15.3 H, Hct 47.2 H, MCV 90.8, MCH 29.4, MCHC 32.4, RDW Std Deviation 45.4 H, RDW Coeff of Joleen 13.4, Plt Count 331, MPV 9.8, Immature Gran % (Auto) 0.200, Neut % (Auto) 59.6, Lymph % (Auto) 32.2, [place] % (Auto) 5.4, Eos % (Auto) 2.0, Baso % (Auto) 0.6, Absolute Neuts (auto) 5.8, Absolute Lymphs (auto) 3.15, Nucleated RBC % 0, PT 13.0, INR 1.0, APTT 27.6, Sodium 138, Potassium 4.2, Chloride 105, Carbon Dioxide 31.0, Anion Gap 2 L, BUN 15, Creatinine 0.74, Estim Creat Clear Calc 69.82, Est GFR (MDRD) Af Amer 102, Est GFR (MDRD) Non-Af 84, BUN/Creatinine Ratio 20.4 H, Glucose 111 H, Calcium 9.4, Magnesium 2.1, Troponin I High Sens 14 11/10/23 17:02: POC Glucose 110 H 11/10/23 21:48: POC Glucose 172 H 11/11/23 05:30: WBC 8.0, RBC 4.54, Hgb 13.1, Hct 41.2, MCV 90.7, MCH 28.9, MCHC 31.8 L, RDW Std Deviation 45.4 H, RDW Coeff of Joleen 13.6, Plt Count 321, MPV 10.3, Immature Gran % (Auto) 0.300, Neut % (Auto) 49.6, Lymph % (Auto) 36.8, [place] % (Auto) 8.0, Eos % (Auto) 4.3, Baso % (Auto) 1.0, Absolute Neuts (auto) 4.0, Absolute Lymphs (auto) 2.94, Nucleated RBC % 0, Triglycerides 93, Cholesterol 200, LDL Cholesterol 139 H, VLDL Cholesterol 19, HDL Cholesterol 42, TSH 0.85 11/11/23 06:23: POC Glucose 97 Imaging Radiology Impression Brain CT 11/10/23 14:05 IMPRESSION: Chronic involutional changes of the brain. N.B. : The above Results were Read Back by Marty Mari MD to Dr Carmita MD, and understanding confirmed on 11/10/2023 14:26:25 (ET). Electronically Signed: Marty Mari MD at 14:27 EDT , ADDENDUM: 11/10/23 1434 IMPRESSION: Chronic involutional changes of the brain. N.B. : The above Results were Read Back by Marty Mari MD to Dr Carmita MD, and understanding confirmed on 11/10/2023 14:26:25 (ET). Electronically Signed: Marty Mari MD at 14:27 EDT , Chest X-Ray 11/10/23 14:05 IMPRESSION: Hyperinflation. The lungs are clear. Electronically Signed: Marty Mari MD at 14:58 EDT , Head/Neck CTA 11/10/23 14:20 IMPRESSION: Moderate degree of narrowing at the origin of the right internal carotid artery. Mild degree of narrowing at the origin of left internal carotid artery. Nonvisualization of the right A1 segment of the anterior cerebral artery. N.B. : The above Results were Read Back by Marty Mari MD to Dr Carmita MD, and understanding confirmed on 11/10/2023 14:45:00 (ET). Electronically Signed: Marty Mari MD at 14:46 EDT , ADDENDUM: 11/10/23 1453 IMPRESSION: Moderate degree of narrowing at the origin of the right internal carotid artery. Mild degree of narrowing at the origin of left internal carotid artery. Nonvisualization of the right A1 segment of the anterior cerebral artery. N.B. : The above Results were Read Back by Marty Mari MD to Dr Carmita MD, and understanding confirmed on 11/10/2023 14:45:00 (ET). Electronically Signed: Marty Mari MD at 14:46 EDT , Brain MRI 11/10/23 16:20 IMPRESSION: Involutional changes of the brain, as described above. No acute infarct. Electronically Signed: Rome Flores MD at 23:35 EDT , Active Medications Active Medications Active Medications: Current Medications Generic Name Dose Route Start Last Admin Trade Name Freq PRN Reason Stop Dose Admin Acetaminophen 650 mg 11/10/23 16:20 Acetaminophen 325 Mg Tablet PO Q4H PRN PRN Pain 1-10 Or Fever>99.6 Amlodipine Besylate 10 mg 11/11/23 10:00 11/11/23 08:23 Amlodipine 10 Mg Tablet PO 10 mg DAILY TRUPTI Administration Protocol Aspirin 81 mg 11/10/23 16:20 11/11/23 08:22 Aspirin 81 Mg Tab.Chew PO 81 mg BREAKFAST TRUPTI Administration Atorvastatin Calcium 80 mg 11/10/23 22:00 11/10/23 21:43 Atorvastatin Calcium 80 Mg Tablet PO 80 mg QHS TRUPTI Administration Clopidogrel Bisulfate 75 mg 11/11/23 10:00 11/11/23 08:23 Clopidogrel Bisulfate 75 Mg Tablet PO 75 mg DAILY TRUPTI Administration Enoxaparin Sodium 40 mg 11/10/23 16:20 11/11/23 08:28 Enoxaparin 40 Mg/0.4 Ml Syringe SC Not Given DAILY TRUPTI Hydralazine HCl 5 mg 11/10/23 16:20 Hydralazine 20 Mg/Ml Vial IV 11/11/23 16:20 Q30M PRN maintain BP parameters with HR <60 Hydrochlorothiazide 25 mg 11/11/23 10:00 11/11/23 08:22 Hydrochlorothiazide 25 Mg Tablet PO 25 mg DAILY TRUPTI Administration Protocol Sodium Chloride 250 mls @ 15 mls/hr 11/10/23 16:19 IV .[id number] PRN Additional IVPB Infusion Sodium Chloride 250 mls @ 15 mls/hr 11/10/23 16:19 IV .[id number] PRN Saline Flush Labetalol HCl 20 mg 11/10/23 14:05 11/10/23 14:32 Labetalol (Prefilled) 20 Mg/4 Ml IV 11/11/23 14:05 20 mg X1 PRN Administration Blood Pressure Labetalol HCl 10 - 20 mg 11/10/23 16:20 Labetalol (Prefilled) 20 Mg/4 Ml IV 11/11/23 16:20 Q10M PRN PRN maintain BP parameters with HR >/=60 Metoprolol Tartrate 25 mg 11/10/23 22:00 11/11/23 08:22 Metoprolol Tartrate 25 Mg Tablet PO 25 mg BID TRUPTI Administration Protocol Nitroglycerin 0.4 mg 11/10/23 16:20 Nitroglycerin (Inpatient Use) 0.4 Mg Tab.Subl SL Q5M PRN CARDIAC/CHEST PAIN Ondansetron HCl 4 mg 11/10/23 16:20 Ondansetron 4 Mg/2 Ml Vial IV Q8H PRN PRN NAUSEA/VOMITING Pramipexole Dihydrochloride 1.5 mg 11/10/23 22:00 11/10/23 21:42 Pramipexole Di-Hcl 1 Mg Tablet PO 1.5 mg QHS TRUPTI Administration Senna/Docusate Sodium 2 tablet 11/10/23 16:20 Senna/Docusate Sodium 1 Tablet PO BID PRN PRN Constipation Sodium Chloride 10 - 40 ml 11/10/23 16:19 11/11/23 00:20 0.9% Saline Lock 10 Ml Syringe IV 10 ml UD PRN Administration SALINE FLUSH
[2023-11-11 10:57] LABS: Hemoglobin A1c 5.6 % (3.8-5.6)
--- NOTE | 2023-11-11 13:13 | CDU_ITS ---
Reason For Study: TIA, Carotid stenosis Rt. Velocities/BP Lt. Velocities/BP Prox CCA 42.8/8.8 cm/sec. Prox CCA 46.6/12.6 cm/sec. Mid CCA 64.5/15.4 cm/sec. Mid CCA 41.5/12.3 cm/sec. Dist CCA 51.3/15.4 cm/sec. Dist CCA 40.1/13.7 cm/sec. Prox ICA 60.8/12.4 cm/sec. Prox ICA 47.6/15.7 cm/sec. Mid ICA 81.7/20.1 cm/sec. Mid ICA 76.2/25.6 cm/sec. Dist ICA 71.8/16.8 cm/sec. Dist ICA 72/21.6 cm/sec. Rt. ICA/CCA = 1.59. Lt. ICA/CCA = 1.84. Prox ECA 112/17 cm/sec. Prox ECA 553.5/78.9 cm/sec. Rt. Vert. 39.9/9.1 cm/sec. Lt. Vert. 37.2/7.3 cm/sec. Right Extracranial There is homogeneous, smooth atherosclerotic plaque noted in the right common carotid artery. There is heterogeneous, irregular atherosclerotic plaque noted in the right internal carotid artery. There is intimal thickening but no significant atherosclerotic plaque noted in the right external carotid artery. Antegrade flow is noted in the right vertebral artery. Left Extracranial There is homogeneous, smooth atherosclerotic plaque noted in the left common carotid artery. There is heterogeneous, irregular atherosclerotic plaque noted in the left internal carotid artery. There is heterogeneous, irregular atherosclerotic plaque noted in the left external carotid artery. Antegrade flow is noted in the left vertebral artery. Procedure Carotid Duplex 50202. This is a Carotid Duplex examination using B-mode, color flow and specral Doppler. Preliminary report given to data communications software consultant. Exam performed in department. VL/Carotid Duplex Ultrasound Interpretation Summary Mild (<50%) stenosis right extracranial internal carotid. Mild (<50%) stenosis left extracranial internal carotid. Patent and antegrade vertebrals bilaterally. Ordering Physician: Birdie Canada Referring Physician: Neida Traore Performed By: Nancy Barron RVT
[2023-11-11] MEDS: Losartan Potassium 100 MG Tablet PO (13:46)
--- NOTE | 2023-11-11 15:24 | CASEMGMT ---
Met with?patient and her to complete CHRIS form. CHRIS form explained to both who voiced understanding and signed form. Original form placed in pt?s chart and copy provided to?patient. Darcy Ruiz, Discharge Planning Asst
--- NOTE | 2023-11-11 15:42 | CON.PCM.SX_ITS ---
Assessment & Plan Assessment/Plan (1) Brain TIA: (2) Carotid artery disease: PLAN: Plan CTA Neck images were reviewed with Dr. Denny. R ICA with 32% stenosis by NASCET. Carotid duplex correlate showing <50% stenosis of the R ICA with max. PSV around 60 cm/s. She has mild carotid artery disease, not likely the cause of her current presentation. No indication for surgical intervention at this time. Do recommend continuing with medical therapy including ASA 81mg daily and high- intensity statin. May follow-up in the office as an outpatient to establish plan for ongoing monitoring. HPI Consult Data Date of Consult: 11/11/23 HPI Narrative HPI Narrative: GIOVANNI LOMAX, is a 68 F who presented to the [facility] ER via EMS as a stroke alert on 11/10/23. She initially had slurred speech and L arm weakness that resolved within 10 minutes of onset prior to arrival in the ER. She was hypertensive but no other acute findings. Brain CT was negative. She was admitted for further workup. Neck CTA reported moderate R ICA stenosis. Brain MRI was negative for acute infarct and showed only mild chronic white matter ischemic changes. Carotid duplex was ordered and completed with preliminary report showing <50% ICA stenosis bilaterally with max. R ICA PSV around 60 cm/s. Patient reports that she did not have total L arm weakness as she was able to lift it but it felt very heavy. Her reports her speech seemed slurred as well. No LLE weakness, vision loss, facial droop. She does note that she had similar LUE weakness/heaviness a few days prior to this event which resolved in just a couple minutes. She was alone at that time but does not think she had sl urred speech or any other symptoms. She denies any other episodes with similar symptoms. No known CVA in the past. No prior vascular surgical interventions. She has been taking ASA and atorvastatin 80mg daily already for her history of CAD/OK s/p PCI. Her medical history is also significant for COPD. She does still smoke, but does plan to try to quit following this hospitalization. She is not diabetic. [facility] Medical History (Updated 11/11/23 @ 15:53 by KAILEY Hawthorne) Anxiety Anxiety and depression Atherosclerotic heart disease of [place] coronary artery without angina pectoris Chronic pain Colon cancer screening COPD (chronic obstructive pulmonary disease) Depression Flu vaccine need Fracture Health care maintenance History of fracture of clavicle Hyperlipidemia Hypertension ICD (implantable cardioverter-defibrillator) in place Left hand pain Myocardial infarct Osteoporosis Patient noncompliance Pre-op chest exam Smoker ST elevation myocardial infarction (STEMI) Tobacco abuse Home Medications aspirin 81 mg tablet,delayed release 81 mg PO DAILY@0800 #30 tabs 01/12/19 [Rx Last Taken Unknown] atorvastatin 80 mg tablet 80 mg PO QHS #90 tabs 04/29/23 [Rx Last Taken Unknown] clopidogrel 75 mg tablet (Plavix) 75 mg PO DAILY #90 tabs 04/29/23 [Rx Last Taken Unknown] hydrochlorothiazide 25 mg tablet 25 mg PO DAILY #90 tabs 04/29/23 [Rx Last Taken Unknown] losartan 100 mg tablet 100 mg PO DAILY dose increase #90 tabs 04/29/23 [Rx Last Taken Unknown] metoprolol tartrate 25 mg tablet 25 mg PO BID #180 tabs 04/29/23 [Rx Last Taken Unknown] nitroglycerin 0.4 mg sublingual tablet 0.4 mg sublingual Q5M PRN Chest Pain #25 tabs 04/29/23 [Rx Last Taken Unknown] amlodipine 10 mg tablet 10 mg PO DAILY #90 tabs 05/30/23 [Rx Last Taken Unknown] albuterol sulfate 90 mcg/actuation aerosol inhaler 1 - 2 puff inhalation Q6H PRN PRN Sob &/Or Wheezing #8.5 grams 08/08/23 [Rx Last Taken Unknown] pramipexole 1.5 mg tablet,extended release 24 hr 1.5 mg PO QHS restless legs #90 tabs 11/08/23 [Rx Last Taken Unknown] albuterol sulfate 90 mcg/actuation aerosol inhaler (ProAir HFA) 2 inh inhalation Q6H PRN shortness of breath or wheezing 11/10/23 [History Last Taken Unknown] Allergy/AdvReac Type Severity Reaction Status Date / Time No Known Allergies Allergy Verified 10/31/23 10:20 Family History Father , 52 Myocardial infarction Heart disease Hyperlipemia Brother Myocardial infarction CAD (coronary artery disease) CABG and stents Mother Arthritis Depression Osteoporosis Seizures Son Suicide Depression Other Cancer Surgical History History of hysterectomy History of oophorectomy History of shoulder surgery History of tonsillectomy Stented coronary artery (01/10/19) Social History housing: house Smoking Status: Current every day smoker tobacco type: cigarettes Tobacco: How many years used: 50 alcohol intake: current alcohol intake frequency: holidays/special occasions only Alcohol type: wine substance use type: marijuana caffeine: Yes Type: coffee Number of servings: 3 what type of physical activity do you participate in: none Physical Exam Const alert, oriented x3 and no apparent distress General Appearance: cooperative and comfortable HEENT normocephalic, head/scalp atraumatic, hearing grossly normal bilaterally, external ears normal and external nose normal Eyes EOMs intact bilaterally General Eye: normal appearance of both eyes Neck General: normal visual inspection and trachea midline Resp normal respiratory effort, no retractions and no use of accessory muscles Effort and Inspection: able to speak in complete sentences; Negative for labored, grunting or stridor Cardio regular rate and regular rhythm Extremity no clubbing, cyanosis or edema Skin no rashes or lesions noted and no wounds Neuro oriented x3, CN's II-XII intact bilaterally, moves all extremities, no focal motor deficits and no sensory deficits noted Speech: speech normal Psych mental status grossly normal Appearance: grossly normal Attitude: calm and engaged Activity / Motor Behavior: appropriate eye contact Speech: normal speech Mood & Affect: euthymic mood Judgement: judgement good Lab / Micro Data 11/11/23 05:30 11/10/23 14:10 Labs: Laboratory Results - last 24 hr 11/10/23 14:10: Magnesium 2.1 11/10/23 17:02: POC Glucose 110 H 11/10/23 21:48: POC Glucose 172 H 11/11/23 05:30: WBC 8.0, RBC 4.54, Hgb 13.1, Hct 41.2, MCV 90.7, MCH 28.9, MCHC 31.8 L, RDW Std Deviation 45.4 H, RDW Coeff of Joleen 13.6, Plt Count 321, MPV 10.3, Immature Gran % (Auto) 0.300, Neut % (Auto) 49.6, Lymph % (Auto) 36.8, [place] % (Auto) 8.0, Eos % (Auto) 4.3, Baso % (Auto) 1.0, Absolute Neuts (auto) 4.0, Absolute Lymphs (auto) 2.94, Nucleated RBC % 0, Hemoglobin A1c 5.6, Triglycerides 93, Cholesterol 200, LDL Cholesterol 139 H, VLDL Cholesterol 19, HDL Cholesterol 42, TSH 0.85 11/11/23 06:23: POC Glucose 97 Imaging Radiology Impression Brain MRI 11/10/23 16:20 IMPRESSION: Involutional changes of the brain, as described above. No acute infarct. Electronically Signed: Rome Flores MD at 23:35 EDT ,
--- NOTE | 2023-11-11 16:09 | PCM.DC ---
Discharge Instructions Diet Discharge Diet: No restrictions Activity Discharge Activity: No Restrictions Follow Up Care Test Results: Test results from this visit will be discussed in further detail at your follow-up appointment, if applicable. Discharge Plan Admission Admit Date/Time: 11/10/23 15:07 Primary Reason for Your Visit: strokelike symptoms Attending Provider: Abhijeet Sky Primary Care Provider: Neida Traore Consulting Providers: Braxton Sadler; Alejandro Desai; Amanda Ugarte; Birdie Acuna; Marivel Perez; Ron Cohen; Ester Doss; David Mobley; Bj Rene; Nevin Soto; Wolf Li; Gaby Bangura; Alexander Benavides; Carly Ceron; Fabian Acuña; Marylin Smith; Topher Morse; Dilcia Torres; Eyal Beauchamp; Rafael Arreaga; Guido Denny Discharge Orders/Prescriptions Prescriptions: Continued albuterol sulfate [ProAir HFA] 90 mcg/actuation HFA aerosol inhaler 2 inh inhalation Q6H PRN (Reason: shortness of breath or wheezing) atorvastatin 80 mg tablet 80 mg PO QHS 90 Days Qty: 90 0RF aspirin 81 MG tablet 81 mg PO DAILY@0800 90 Days Qty: 90 0RF clopidogrel [Plavix] 75 mg tablet 75 mg PO DAILY Qty: 90 3RF hydrochlorothiazide 25 mg tablet 25 mg PO DAILY Qty: 90 3RF losartan 100 mg tablet 100 mg PO DAILY Qty: 90 3RF metoprolol tartrate 25 mg tablet 25 mg PO BID Qty: 180 3RF nitroglycerin 0.4 mg tablet, sublingual 0.4 mg sublingual Q5M PRN (Reason: Chest Pain) Qty: 25 3RF amlodipine 10 mg tablet 10 mg PO DAILY Qty: 90 3RF albuterol sulfate 90 mcg/actuation HFA aerosol inhaler 1 - 2 puff inhalation Q6H PRN PRN (Reason: Sob &/Or Wheezing) Qty: 8.5 0RF pramipexole 1.5 mg tablet extended release 24 hr 1.5 mg PO QHS Qty: 90 0RF Referrals / Follow Up: Neida Traore MD [Primary Care Provider] - Disposition Disposition (needs filled in before D/C Order can be placed): Home, Self Care
--- NOTE | 2023-11-11 16:14 | PCM.DC.SUM ---
Providers Date of Admission: 11/10/23 Date of Discharge: 11/11/23 Primary Care Physician: Dr. Neida Traore MD Consultations 11/10/23 16:20 Consult: Tele-Neurology Routine Consulting Provider: [facility] Reason for Consult: Acute Ischemic Stroke/TIA EMERGENT Consult: No Notified: Yes Date Notified: 11/10/23 Time Notified: 17:14 Method of Notification: Answering Service Comments:: TIA. After stroke workup completed Nursing Unit Staff Notify [facility] of Tele-Neurology Consult: Yes 11/11/23 11:28 Consult: Vascular Surgery Routine Consulting Provider: Guido Denny Reason for Consult: concern for symptomatic R ICA disease EMERGENT Consult: No MD Notified: Yes Date Notified: 11/11/23 Time Notified: 13:01 Method of Notification: Text Reason For Visit: TIA Diagnosis Discharge Diagnosis (1) Brain TIA: Status: Acute Code(s): G45.9 - Transient cerebral ischemic attack, unspecified (2) Carotid artery disease: Status: Acute Code(s): I77.9 - Disorder of arteries and arterioles, unspecified Medications at Discharge Home Medications clopidogrel 75 mg tablet (Plavix) 75 mg PO DAILY antiplatelet #90 tabs 04/29/23 hydrochlorothiazide 25 mg tablet 25 mg PO DAILY BP #90 tabs 04/29/23 losartan 100 mg tablet 100 mg PO DAILY dose increase (BP) #90 tabs 04/29/23 metoprolol tartrate 25 mg tablet 25 mg PO BID BP #180 tabs 04/29/23 nitroglycerin 0.4 mg sublingual tablet 0.4 mg sublingual Q5M PRN Chest Pain #25 tabs 04/29/23 amlodipine 10 mg tablet 10 mg PO DAILY BP #90 tabs 05/30/23 albuterol sulfate 90 mcg/actuation aerosol inhaler 1 - 2 puff inhalation Q6H PRN PRN Sob &/Or Wheezing #8.5 grams 08/08/23 pramipexole 1.5 mg tablet,extended release 24 hr 1.5 mg PO QHS restless legs #90 tabs 11/08/23 albuterol sulfate 90 mcg/actuation aerosol inhaler (ProAir HFA) 2 inh inhalation Q6H PRN shortness of breath or wheezing 11/10/23 aspirin 81 mg tablet,delayed release 81 mg PO DAILY@0800 90 days #90 tabs 11/11/23 atorvastatin 80 mg tablet 80 mg PO QHS 90 days #90 tabs 11/11/23 Hospital Course Operations None Procedures EKG, Transthoracic echo and - (Chest x-ray, CT brain without contrast, CTA head/neck, MRI brain without contrast) Summary of Care Provided Minutes Spent on Discharge: 35 Hospital Course: Patient is a 68-year-old female who presented [facility] ED on 11/10/2023 with strokelike symptoms. Short hospital course as noted below. Discharged home with no therapy needs in stable condition on 11/10. 1. Suspected TIA: carotid artery disease Presented with transient left arm weakness and slurred speech that resolved after about half an hour. No further episodes while inpatient. CTA head/neck showed moderate stenosis at origin of right ICA, otherwise was negative. MRI brain negative. Echo with EF 60%, stage I diastolic dysfunction, moderate LV hypertrophy, no PFO. Lipid panel with LDL 139, HDL 42. A1c 5.6%, TSH normal. ? Teleneurology and vascular surgery followed. PT/OT/case management followed as well. Symptoms and presentation most consistent with TIA. Suspect poor compliance with home statin. Per vascular surgery, has mild carotid artery disease per imaging from admission, not likely the cause of her acute presentation. No indication for surgical invention. Recommended continuing medical therapy with aspirin and high intensity statin. Will continue home Plavix as well. Strongly recommended smoking cessation. Did very well with therapy, okay for discharge home with no therapy needs. 2. COPD ? Previously followed w/ Dr. Quiles, last office visit in late 2021. PFTs from 05/28/22 showed severe large airways obstructive ventilatory defect that was partially reversible. Not on home O2. Patient stable on room air on admission, no concern for exacerbation. Continue home short-acting inhaler as needed. 3. Tobacco abuse ? Strongly encouraged smoking cessation. 4. History of CAD with inferior STEMI in 2019 ? Had inferior STEMI in January 2019, complicated by acute in-stent restenosis after initial PCI of proximal RCA. Previously followed with Dr. 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 Last echo in May 2022 showed EF 75%, no valvular abnormalities. Repeat echo on admit as noted above. Continue aspirin, statin, Plavix. 5. Hypertension ? Initially hypertensive on admission, improved on home regimen. Continue home amlodipine, hydrochlorothiazide, losartan, Lopressor on discharge. 6. Restless leg syndrome ? Continue home prophylaxis. Total clinical time spent by myself addressing the patient's medical issues, reviewing all the data, and collaborating with patient's care team: 35 minutes. Physical Exam Const alert, oriented x3 and no apparent distress General Appearance: cooperative and comfortable HEENT normocephalic, head/scalp atraumatic, hearing grossly normal bilaterally, nasal mucous membranes and turbinates normal and moist oral mucous membranes Eyes PERRL, EOMs intact bilaterally and conjunctivae normal Neck full ROM Chest inspection of chest normal Resp normal respiratory effort, normal air movement, no use of accessory muscles and clear to auscultation bilaterally Cardio regular rate, regular rhythm, no murmurs and peripheral pulses 2+ throughout GI normal to inspection, nondistended, normoactive bowel sounds, soft to palpation, non-tender and non-distended Back/Spine normal ROM Extremity normal to inspection, full ROM and no pedal edema Skin no rashes or lesions noted Neuro moves all extremities and no focal motor deficits Speech: speech normal Psych mental status grossly normal Weight / BMI Weight Weight: 77 kg Body Mass Index (BMI) 29.1 ABG / Lab / Microbiology Data 11/11/23 05:30 11/10/23 14:10 Laboratory: Laboratory Results - last 24 hr 11/10/23 17:02: POC Glucose 110 H 11/10/23 21:48: POC Glucose 172 H 11/11/23 05:30: WBC 8.0, RBC 4.54, Hgb 13.1, Hct 41.2, MCV 90.7, MCH 28.9, MCHC 31.8 L, RDW Std Deviation 45.4 H, RDW Coeff of Joleen 13.6, Plt Count 321, MPV 10.3, Immature Gran % (Auto) 0.300, Neut % (Auto) 49.6, Lymph % (Auto) 36.8, [place] % (Auto) 8.0, Eos % (Auto) 4.3, Baso % (Auto) 1.0, Absolute Neuts (auto) 4.0, Absolute Lymphs (auto) 2.94, Nucleated RBC % 0, Hemoglobin A1c 5.6, Triglycerides 93, Cholesterol 200, LDL Cholesterol 139 H, VLDL Cholesterol 19, HDL Cholesterol 42, TSH 0.85 11/11/23 06:23: POC Glucose 97 Radiography Diagnostic Testing: Radiology Impression Brain MRI 11/10/23 16:20 IMPRESSION: Involutional changes of the brain, as described above. No acute infarct. Electronically Signed: Rome Flores MD at 23:35 EDT , D/C Instructions Discharge Diet: No restrictions Meaningful Use Info Meaningful Use Meaningful Use Diagnoses (Choose all that apply): None applicable Ischemic Stroke Statin Dosing Therapy Reference: STATIN DOSE THERAPY REFERENCE: * Patients > 75 years receive moderate or high dose statin therapy. * Patients 75 years or YOUNGER should receive HIGH intensity statin dose unless contraindicated. You will be required to document reason for non-treatment if statin daily dose does not meet guidelines. HIGH DOSE STATIN THERAPY DAILY Atorvastatin > than or = to 40 mg Rosuvastatin > than or = to 20 mg Amlodipine + Atorvastatin > than or = to 2.5/40 mg Ezetimibe + Simvastatin 10/80 mg Simvastatin 80mg Discharge Plan Admission Admit Date/Time: 11/10/23 15:07 Primary Reason for Your Visit: strokelike symptoms Attending Provider: Abhijeet Sky Primary Care Provider: Neida Traore Consulting Providers: Braxton Sadler; Alejandro Desai; Amanda Ugarte; Birdie Acuna; Marivel Perez; Ron Cohen; Ester Doss; David Mobley; Bj Rene; Nevin Soto; Wolf Li; Gaby Bangura; Alexander Benavides; Carly Ceron; Fabian Acuña; Marylin Smith; Topher Morse; Dilcia Torres; Eyal Beauchamp; Rafael Arreaga; Guido Denny Discharge Orders/Prescriptions Prescriptions: Continued albuterol sulfate [ProAir HFA] 90 mcg/actuation HFA aerosol inhaler 2 inh inhalation Q6H PRN (Reason: shortness of breath or wheezing) atorvastatin 80 mg tablet 80 mg PO QHS 90 Days Qty: 90 0RF aspirin 81 MG tablet 81 mg PO DAILY@0800 90 Days Qty: 90 0RF clopidogrel [Plavix] 75 mg tablet 75 mg PO DAILY Qty: 90 3RF hydrochlorothiazide 25 mg tablet 25 mg PO DAILY Qty: 90 3RF losartan 100 mg tablet 100 mg PO DAILY Qty: 90 3RF metoprolol tartrate 25 mg tablet 25 mg PO BID Qty: 180 3RF nitroglycerin 0.4 mg tablet, sublingual 0.4 mg sublingual Q5M PRN (Reason: Chest Pain) Qty: 25 3RF amlodipine 10 mg tablet 10 mg PO DAILY Qty: 90 3RF albuterol sulfate 90 mcg/actuation HFA aerosol inhaler 1 - 2 puff inhalation Q6H PRN PRN (Reason: Sob &/Or Wheezing) Qty: 8.5 0RF pramipexole 1.5 mg tablet extended release 24 hr 1.5 mg PO QHS Qty: 90 0RF Referrals / Follow Up: Neida Traore MD [Primary Care Provider] - Disposition Disposition (needs filled in before D/C Order can be placed): Home, Self Care Charges/Coding Visit Charges Inpatient E&M: 59824 Disch Hosp >30min
--- NOTE | 2023-11-11 16:32 | CASEMGMT ---
PRINCE GUZMAN NOTE: Pt being discharged. RN CM to room. Pt sitting up in chair in room. She denies having any discharge needs or concerns. Vipin WHEELERN PRINCE CM
== END 2023-11-11 16:14 | disposition home or self-care (01) ==
LOC: ED 15:15 → PCU 15:35
PROVIDERS: Admitting Provider Internal Medicine; Emergency Provider Emergency Medicine; PCP Internal Medicine; Visit Provider Hospitalist
DX: G45.9 Transient cerebral ischemic attack, unspecified (principal); J44.9 Chronic obstructive pulmonary disease, unspecified; I25.2 Old myocardial infarction; Z79.02 Long term (current) use of antithrombotics/antiplatelets; Z79.82 Long term (current) use of aspirin; Z95.5 Presence of coronary angioplasty implant and graft; R47.81 Slurred speech; R29.898 Other symptoms and signs involving the musculoskeletal system; F17.210 Nicotine dependence, cigarettes, uncomplicated; E78.5 Hyperlipidemia, unspecified; I25.10 Atherosclerotic heart disease of native coronary artery without angina pectoris; I10 Essential (primary) hypertension; I77.9 Disorder of arteries and arterioles, unspecified; G25.81 Restless legs syndrome; Z79.899 Other long term (current) drug therapy; Z95.810 Presence of automatic (implantable) cardiac defibrillator
CPT/HCPCS: 36415; 70450; 70496; 70498; 70551; 71045; 80048; 80061; 82962; 83036; 83735; 84443; 84484; 85025; 85610; 85730; 93005; 93306; 93880; 94668; 94762; 96361; 96374; 97161; 97165; 97802; 99221; 99285; 99406; J7030; Q9967; A4216; G0378

== ENCOUNTER → 2023-11-22 | Outpatient (CLI) | payer MEDICARE, OTHER, SELFPAY ==
[2019-01-10 10:10] VITALS: BMI 29.2
--- NOTE | 2023-11-22 15:46 | BI_ITS ---
MAMMOGRAPHY - BILATERAL SCREENING REASON FOR EXAM: Female, 68 years old. Routine annual screening examination. PERTINENT HISTORY: Non-contributory. TECHNIQUE: Digital bilateral breast verenice (3D mammographic acquisition) in the CC and MLO projections. 2-D mediolateral oblique (MLO) and craniocaudad (CC) views of both breasts were obtained. CAD: Full Field Digital Mammography with Computer Added Detection was performed. COMPARISON: Comparison is made prior outside examination dated May 11, 2006. FINDINGS: Breast Composition: The breasts are almost entirely fatty. There are no dominant masses or suspicious calcifications. No other significant abnormalities are identified. There has been no significant change since the prior study. BI/SCRN MAMM (CAD)W/VERENICE BILAT IMPRESSION: Stable bilateral screening mammogram. Yearly follow-up mammogram recommended. (A) ASSESSMENT CATEGORY: BIRADS Category 1: Negative. A letter regarding these results will be sent to the patient by the facility within 30 days. Approximately 10% of breast cancers are not detected by mammography. A normal mammogram should not delay biopsy of a clinically suspicious abnormality. [id number] Electronically Signed: Marty Mari MD at 8:25 EDT ,
--- NOTE | 2023-11-22 15:54 | BD_ITS ---
STUDY: DUAL ENERGY X-RAY ABSORPTIOMETRY / DXA REASON FOR EXAM: Female, 68 years old. Post menopausal TECHNIQUE: Bone Mineral Density (BMD) measurements of lumbar spine and bilateral hips were obtained. COMPARISON: None. FINDINGS: Lumbar Spine (L1-L4): g/cm2 (0.645) / T-score (-4.1) / Z-score (-2.2) Findings are suggestive of osteoporosis with a high fracture risk. Left Femur Total: g/cm2 (0.738) / T-score (-1.7) / Z-score (-0.3) Left Femoral Neck: 0.525 g/cm2) / T-score (-2.9) / Z-score (-1.3) BD/Dexa Bone Density Study IMPRESSION: The patient is considered osteoporotic as outlined below according to World Tu Organization (WHO) criteria with a high fracture risk. No prior study available for comparison Reference Information: The T-score is the number of standard deviations above or below the standard which is normal for young adults at their peak bone mineral density. The World Health Organization (WHO) interprets the T-scores as follows: Above -1 Normal bone density Between -1 and -2.5 Osteopenia Equal to / or below -2.5 Osteoporosis As a practical clinical guideline, osteopenia may be graded as follows: Mild -1 through -1.5 Moderate -1.6 through -2.0 Severe -2.1 through -2.4 The Z-score is the number of standard deviations above or below age-matched controls. A Z-score of less than -1.5 would be considered abnormal. References: 1. NIH Osteoporosis and Related Bone Diseases www osteo.org 2. International Society for Clinical Densitometry www iscd.org 3. National Osteoporosis Foundation www nof.org Electronically Signed: Quan Kapadia MD at 22:37 EDT ,
== END | disposition home or self-care (01) ==
LOC: OPBD 15:45
PROVIDERS: PCP Internal Medicine; Referring Provider Internal Medicine; Visit Provider Internal Medicine
DX: M81.0 Age-related osteoporosis without current pathological fracture (principal); Z78.0 Asymptomatic menopausal state; Z12.31 Encounter for screening mammogram for malignant neoplasm of breast
CPT/HCPCS: 77063; 77067; 77080

== ENCOUNTER → 2024-08-08 | Outpatient (CLI) | payer MEDICARE, OTHER, SELFPAY ==
[2023-12-07 12:38] VITALS: BMI 29.2
[2024-08-08 14:21] LABS: Mucous, Urine 0 SEEN /hpf (<or=2+)
[2024-08-08 15:23] LABS: Color, Urine Yellow (Yellow); Glucose, Dipstick Normal (Normal); Ketone-Dipstick Negative (Negative); Leukocyte Esterase-Dipstick 25 /ul (Negative); Nitrite-Dipstick Negative (Negative); Occult Blood-Urine 10 /ul (Negative); Protein-Dipstick 15 mg/dl (Negative); Specific Gravity, Urine 1.015 (1.002-1.030); Urine Bilirubin Dipstick Negative (Negative); Urine Clarity Clear (Clear); Urine Urobilinogen Normal (Normal)
[2024-08-08 15:38] LABS: ALB/GLOB Ratio 0.9 RATIO (0.9-2.4); AST(SGOT) 15 U/L (15-37); Alanine Aminotransfer ALT/SGPT 26 U/L (13-56); Albumin, Serum 3.6 g/dL (3.2-5.0); Alkaline Phosphatase 70 U/L (45-117); Anion Gap 7 (5-15); BUN 20 mg/dL (7-18); BUN/Creat Ratio 26.8 RATIO (10-20); Calcium,Total 9.4 mg/dL (8.5-10.1); Chloride 102 mmol/L (98-107); Cholesterol 248 mg/dL (200); Creatinine, Serum 0.74 mg/dL (0.55-1.02); EST Glomerular Filtration Rate 82 mL/min (>60); Est Glom Filt Rate - Afr Amer 100 mL/min (>60); Globulin 4.1 g/dL (2.2-4.2); Glucose 105 mg/dL (74-106); High Density Lipoprotein 53 mg/dL; Potassium 4.4 mmol/L (3.5-5.1); Protein, Total 7.7 g/dL (6.4-8.2); Sodium Level 139 mmol/L (136-145); Triglycerides 166 mg/dL; Very Low Density Lipoprotein 33 mg/dL (5-40)
[2024-08-08 15:45] LABS: Bacteria RARE /hpf (None Seen); Red Blood Cells-Urine 0-5 SEEN /hpf (0-5); Squamous Epithelial Cells - UA 5-10 SEEN /hpf (5-10); Transitional Epithelial - Ur 0-5 SEEN /hpf (0-5); White Blood Cells 0-5 SEEN /hpf (0-5)
== END | disposition home or self-care (01) ==
LOC: BIMLAB 14:13
PROVIDERS: PCP Internal Medicine; Visit Provider Internal Medicine
DX: I10 Essential (primary) hypertension (principal); R35.0 Frequency of micturition
CPT/HCPCS: 36415; 80053; 80061; 81001; 87086

== ENCOUNTER → 2024-08-31 | Outpatient (CLI) | payer MEDICARE, OTHER, SELFPAY ==
[2023-12-07 12:38] VITALS: BMI 29.2
[2024-08-31 16:52] LABS: Mucous, Urine 0 SEEN /hpf (<or=2+)
[2024-08-31 17:00] LABS: Color, Urine Yellow (Yellow); Glucose, Dipstick Normal (Normal); Ketone-Dipstick Negative (Negative); Leukocyte Esterase-Dipstick 100 /ul (Negative); Nitrite-Dipstick Positive (Negative); Occult Blood-Urine 25 /ul (Negative); Protein-Dipstick 30 mg/dl (Negative); Urine Bilirubin Dipstick Negative (Negative); Urine Clarity Sl. Cloudy (Clear); Urine Urobilinogen Normal (Normal)
[2024-08-31 17:23] LABS: Bacteria 2+ /hpf (None Seen); Red Blood Cells-Urine 5-10 SEEN /hpf (0-5); Squamous Epithelial Cells - UA 0-5 SEEN /hpf (5-10); White Blood Cells 25-50 SEEN /hpf (0-5)
== END | disposition home or self-care (01) ==
LOC: LABSPEC 15:34
PROVIDERS: PCP Internal Medicine; Referring Provider Internal Medicine; Visit Provider Internal Medicine
DX: R30.0 Dysuria (principal)
CPT/HCPCS: 81001; 87086; 87088; 87186

== ENCOUNTER 2024-12-28 05:18 | Inpatient (IN) | payer MEDICARE, OTHER, SELFPAY ==
[2024-11-07 11:54] VITALS: BMI 29.2
[2024-12-28] VITALS (26 sets, daily range): BP systolic 148–225; BP diastolic 78–119; PULSE 71–88; RESP 15–20; TEMP 36.4–37; O2SAT 92–100; BMI 32.5; BMI 32.3
[2024-12-28 06:06] LABS: Absolute Lymphocyte Count 2.81 X10^3/uL (0.83-4.51); Basophil# 0.08 X10^3/uL; Basophil% 0.6 % (0-1); Eosinophil# 0.12 X10^3/uL; Eosinophils% 0.9 % (0-5); Hematocrit 44.3 % (37-47); Hemoglobin 14.6 g/dL (12.0-15.0); Lymphocyte # 2.81 X10^3/ul (0.83-4.51); Lymphocyte % 22.2 % (19-41); Mean Corpuscular Hgb 28.9 pg (27.0-32.0); Mean Corpuscular Volume 87.7 fL (81-99); Mean Platelet Vol. 10.4 fl (6.2-12.0); Monocyte# 0.61 X10^3/uL; Monocyte% 4.8 % (0-10); NRBC Flagged by Analyzer 0 % (0-5); Neutrophil # 8.99 X10^3/uL (2.7-7.7); Neutrophil % 71.1 % (47-70); Platelet Count 344 K/mm3 (150-450); RBC Distribution Width CV 13.9 % (11.6-14.6); RBC Distribution Width SD 44.6 fl (35.1-43.9); Red Blood Count 5.05 M/mm3 (4.2-5.4); White Blood Count 12.7 K/mm3 (4.4-11.0)
--- OUTSIDE RECORDS SUMMARY | 2024-12-28 06:09 | XMS RPT_ITS | CCD ---
Author Organization [facility] Care Team Providers Care Photocopying Equipment Repairer Name Role Phone Kelly Olvera Unavailable Minda Salazar Unavailable Unavailable Gravius, Angela Unavailable Unavailable Unavailable Unavailable Jae Garrett Unavailable Yoli Reyna Unavailable Unavailable Joanne Johns Primary Care Provider Marlon Bennett Unavailable Minda Salazar Unavailable Unavailable Yoli Reyna Unavailable Unavailable Gravius, Angela Unavailable Unavailable Jenny Colón Unavailable Unavailable Kelly Olvera DO Unavailable Jenny Colón LPN Unavailable Unavailable Unavailable Unavailable Kelly Olvera DO Primary Care Provider Dr. Leonidas Traore Primary Care Provider Dr. Leonidas Traore Referring Provider [phone] Royer GRAHAM, JEFFREY Perla Attending Provider Tyesha BONNER, PA Zoltan Hayes Attending Provider Dr. Kalen Quiles Attending Provider [phone] Dr. Kalen Quiles Referring Provider Dr. Michael Zheng Attending Provider Dr. Kalen Quiles Other Provider Dr. Leonidas Traore Primary Care Provider Dr. Leonidas Traore Referring Provider KAILEY Ambrocio Attending Provider [phone] Dr. Leonidas Traore Attending Provider [phone] Nadja Vizcarra Emergency Provider Gibson, Dr. Hall Admit Provider Dr. Rafael Arreaga Attending Provider Gibson, Dr. Hall Other Provider Dr. Dequan Roman Attending Provider MD Braxton Sadler Other Provider Unavailable Dr. Alejandro Desai Other Provider MD Amanda Ugarte Other Provider Unavailable Dr. Birdie Acuna Other Provider Dr. Marivel Perez Other Provider Dr. Ron Cohen Other Provider Dr. Ester Doss Other Provider Dr. David Mobley Other Provider Dr. Bj Rene Other Provider MD Nevin Soto Other Provider Dr. Wolf Li Other Provider Dr. Gaby Bangura Other Provider Dr. Alexander Bneavides Other Provider [phone] Dr. Carly Ceron Other Provider Dr. Fabian Acuña Other Provider Dr. Marylin Smith Other Provider Dr. Topher Morse Other Provider Dr. Dilcia Torres Other Provider Unavailable MD Eyal Beauchamp Other Provider Unavailable Dr. Abhijeet Sky Attending Provider Dr. Abhijeet Sky Other Provider Dr. Guido Denny Other Provider Kelly Olvera DO Primary Care Provider JOANNE NEAL Attending Unavailable JOANNE NEAL Referring Unavailable ANIL, KELLY Primary Care Unavailable JOANNE NEAL Attending Unavailable ANIL, KELLY Primary Care Unavailable Eugenie LYNNE, Leonidas Crespo Primary Care Provider [phone] OLEGHE, EFEWONGBE B Primary Care Unavailable ROXANA GARCIA Referring Unavailable OLEGHE, EFEWONGBE B Primary Care Unavailable Eugenie LYNNE, Dr. Carrasquillo Primary Care Provider Eugenie LYNNE, Dr. Carrasquillo Attending Provider [phone] Eugenie LYNNE, Dr. Carrasquillo Referring Provider [phone] Wolf Unger Attending Provider [phone] Felix LYNNE, Dr. Wilson Attending Provider Felix LYNNE, Dr. Wilson Referring Provider Birdie White Attending Provider [phone] Oleghe, Efewongbe Primary Care Unavailable Oleghe, Efewongbe Attending Unavailable Oleghe, Efewongbe Referring Unavailable Oleghe, Efewongbe Primary Care Unavailable Birdie Canada Attending Unavailable Oleghe, Efewongbe Referring Unavailable Oleghe, Efewongbe Primary Care Unavailable Oleghe, Efewongbe Attending Unavailable Oleghe, Efewongbe Referring Unavailable Oleghe, Efewongbe Primary Care Unavailable Oleghe, Efewongbe Attending Unavailable Oleghe, Efewongbe Referring Unavailable Wolf Unger Attending Unavailable Oleghe, Efewongbe Primary Care Unavailable Oleghe, Efewongbe Referring Unavailable Oleghe, Efewongbe Primary Care Unavailable Oleghe, Efewongbe Referring Unavailable Nataliya Ascencio Attending Unavailable Oleghe, Efewongbe Primary Care Unavailable Irish SOIL SCIENCE TECHNICAL OFFICER, Bárbara Attending Unavailable Oleghe, Efewongbe Primary Care Unavailable Katie Washington Attending Unavailable Katie Washington Referring Unavailable Oleghe, Efewongbe Primary Care Unavailable Oleghe, Efewongbe Attending Unavailable Oleghe, Efewongbe Referring Unavailable Oleghe, Efewongbe Primary Care Unavailable Oleghe, Efewongbe Attending Unavailable Edilia Abdi Attending Unavail able Leonidas Traore Primary Care Unavailable Leonidas Traore Referring Unavailable Medications Current Medications Medication Drug Class(es) Dates Sig (Normalized) Sig (Original) acetaminophen 500 mg oral tablet (8 sources) Start: 11-30-2019 End: 12-28-2019 take 2 tablets by mouth three times daily as needed for pain acetaminophen (TYLENOL) 500 MG tablet Take 2 tablets by mouth 3 times daily as needed for Pain 168 tablet 0 11/30/2019 12/28/2019 Active Start: 11-30-2019 acetaminophen (TYLENOL) tablet 1,000 mg Start: 09-29-2017 End: 02-08-2019 Acetaminophen 325 MG tablet Discontinued 650 mg PO EVERY 6 HOURS NEEDED as needed for Mild Pain (1-3)/Temp > 100.7 F September 28, 2017 11:00pm February 08, 2019 2:33pm Start: 09-29-2017 End: 02-08-2019 take 650 mg by mouth every six hours as needed Acetaminophen Discontinued 650 MG PO EVERY 6 HOURS NEEDED September 29, 2017 12:00am February 08, 2019 3:33pm albuterol 0.83 mg/ml inhalation solution (20 sources) beta2-Adrenergic Agonist Start: 06-05-2024 take 2.5 mg by inhalation every four hours as needed albuterol (PROVENTIL) 2.5 mg /3 mL (0.083 %) nebulizer solution Use 3 mL via nebulizer every 4 hours as needed for wheezing/shortness of breath. Use over 5-15minutes. 150 mL 06/05/2024 Active Start: 12-07-2023 albuterol 108 (90 Base) MCG/ACT inhaler Inhale 1 puff in the morning and 1 puff at noon and 1 puff in the evening. 0 12/07/2023 Active Start: 11-10-2023 Albuterol Sulf ate (Proair Hfa) 90 mcg/actuation HFA aerosol inhaler Active 2 INH INHALATION EVERY 6 HOURS November 10, 2023 12:00am Start: 06-28-2019 End: 02-29-2024 Albuterol Sulfate 90 mcg/act uation HFA aerosol inhaler Active 1 - 2 NMA INHALATION EVERY 6 HOURS NEEDED as needed for Sob &/Or Wheezing 8.5 February 29, 2024 3:57pm Start: 06-28-2019 End: 08-08-2023 take 1 puff(s) by inhalation every six hours as needed Albuterol Sulfate Discontinued 1 - 2 PUFF INHALATION EVERY 6 HOURS NEEDED 8.5 February 28, 2023 11:43am August 08, 2023 7:00pm ALPRAZolam 0.25 mg disintegrating oral tablet (1 source) Benzodiazepine Start: 11-30-2019 ALPRAZolam (NIRAVAM) dissolvable tablet 0.25 mg aspirin 81 mg delayed release oral tablet (20 sources) Platelet Aggregation Inhibitor, Nonsteroidal Anti-inflammatory Drug Start: 01-12-2019 End: 11-11-2023 take 1 tablet by mouth once daily Aspirin 81 MG tablet Active 81 mg PO DAILY@0800 90 90 November 11, 2023 3:13pm Start: 04-12-2012 End: 02-08-2019 take 1 tablet by mouth once daily Aspirin 81 MG tablet,chewable Discontinued 81 mg PO DAILY@0800 January 10, 2019 3:45am February 08, 2019 2:20pm Comment on above: Take 1 tablet by mateus th once daily. benzonatate 100 mg oral capsule (7 sources) Non-narcotic Antitussive Start: take 1 capsule by mouth three times daily as needed benzonatate (Tessalon) 100 MG capsule Take 100 mg by mouth 3 times daily as needed. 0 07/14/2023 Active Start: 07-14-2023 End: 10-31-2023 take 2 capsules by mouth three times daily as needed for cough Benzonatate 100 mg capsule Discontinued 200 mg PO THREE TIMES A DAY as needed for cough July 14, 2023 12:00am October 31, 2023 9:23am Start: 07-14-2023 End: 10-31-2023 take 200 mg by mouth three times daily Benzonatate Discontinued 200 MG PO THREE TIMES A DAY July 14, 2023 1:00am October 31, 2023 10:23am calcium chloride 0.0014 meq/ml / potassium chloride 0.004 meq/ml / sodium chloride 0.103 meq/ml / sodium lactate 0.028 meq/ml injectable solution (1 source) Start: 11-30-2019 lactated ringers infusion carbamide peroxide 65 mg/ml otic solution (3 sources) Start: 10-08-2021 carbamide peroxide (DEBROX) 6.5 % otic solution Indications: Impacted cerumen of right ear Use 5 Drops in both ears twice daily. 15 mL 10/08/2021 Active Comment on above: Use 5 Drops in both ears twice daily. carvedilol 3.125 mg oral tablet (3 sources) alpha-Adrenergic Lorraine, beta-Adrenergic Lorraine Start: 04-12-2012 take 1 tablet by mouth twice daily carvedilol (COREG) 3.125 mg tablet Take 1 tablet by mouth twice daily. 0 04/12/2012 Active Comment on above: Take 1 tablet by mateus twice daily. cyclobenzaprine hydrochloride 10 mg oral tablet (5 sources) Muscle Relaxant take 1 tablet by mouth three times daily as needed for muscle spasms cyclobenzaprine (Flexeril) 10 MG tablet Take 10 mg by mouth 3 times daily as needed for muscle spasms. 0 Active 1 ml denosumab 60 mg/ml prefilled syringe (1 source) RANK Ligand Inhibitor Start: 12-12-2023 Denosumab (Prolia) 60 mg/mL syringe Active 60 mg SC every 6 months December 11, 2023 11:00pm 1 ml diphenhydrAMINE hydrochloride 50 mg/ml cartridge (1 source) Histamine-1 Receptor Antagonist Start: 11-30-2019 End: 11-30-2019 diphenhydrAMINE (BENADRYL) injection 12.5 mg doxycycline monohydrate 100 mg oral tablet (2 sources) Tetracycline-cla ss Drug Start: 06-05-2024 End: 06-12-2024 take 1 tablet by mouth twice daily doxycycline monohydrate 100 mg tablet Take 1 tablet by mouth two times a day for 7 days. 14 tablet 06/05/2024 06/12/2024 Active 2 ml fentaNYL 0.05 mg/ml injection (2 sources) Opioid Agonist Start: 11-30-2019 fentaNYL (SUBLIMAZE) injection 25 mcg Start: 11-30-2019 fentaNYL (SUBL IMAZE) injection 50 mcg Isavfjawcvv-Rndlyuxgw-Xscstx er (2 sources) Anticholinergic, Corticosteroid, beta2-Adrenergic Agonist Start: 09-12-2024 Jcdiwfoozqe-Hyvsrwbsq-Nljgnb er (Trelegy Ellipta) 100-62.5-25 mcg blister with device Active 1 NMA INHALATION Q24H 60 September 12, 2024 3:54pm Start: 08-08-2024 End: 09-12-2024 Yqupdgdvlra-Pucqtjxzf-Wglhzg er (Trelegy Ellipta) 100-62.5-25 mcg blister with device Discontinued 1 NMA INHALATION Q24H 60 August 08, 2024 12:00am September 12, 2024 3:54pm 1 ml hydrALAZINE hydrochloride 20 mg/ml injection (1 source) Arteriolar Vasodilator Start: 11-30-2019 hydrALAZINE (APRESOLINE) injection 5 mg 1 ml HYDROmorphone hydrochloride 1 mg/ml cartridge (2 sources) Opioid Agonist Start: 11-30-2019 HYDROmorphone (DILAUDID) injection 0.5 mg Start: 11-30-2019 HYDROmorphone (DILAUDID) injection 0.25 mg ibuprofen 600 mg oral tablet (1 source) Nonsteroidal Anti-inflammatory Drug Start: 11-30-2019 End: 12-28-2019 take 1 tablet by mouth three times daily as needed for pain ibuprofen (ADVIL;MOTRIN) 600 MG tablet Take 1 tablet by mouth 3 times daily as needed for Pain 84 tablet 0 11/30/2019 12/28/2019 Active 10 ml lidocaine hydrochloride 10 mg/ml injection (1 source) Antiarrhythmic, Amide Local Anesthetic Start: 11-30-2019 End: 11-30-2019 lidocaine PF 1 % injection 1 mL lisinopril 5 mg oral tablet (7 sources) Angiotensin Converting Enzyme Inhibitor End: 11-29-2019 lisinopril (ZESTRIL, PRINIVIL) 5 mg tablet Take 5 mg by mouth. Active Comment on above: Take 5 mg by mouth. 1 ml meperidine hydrochloride 25 mg/ml cartridge (1 source) Opioid Agonist Start: 11-30-2019 meperidine (DEMEROL) injection 12.5 mg 2 ml midazolam 1 mg/ml injection (1 source) Benzodiazepine Start: 11-30-2019 midazolam (VERSED) injection 2 mg 2 ml ondansetron 2 mg/ml injection (1 source) Serotonin-3 Receptor Antagonist Start: 11-30-2019 End: 11-30-2019 ondansetron (ZOFRAN) injection 4 mg oxyCODONE hydrochloride 5 mg oral tablet (2 sources) Opioid Agonist Start: 11-30-2019 End: 12-07-2019 take 1 tablet by mouth every six hours as needed for pain, then take 1 tablet by mouth as needed for pain oxyCODONE (ROXICODONE) 5 MG immediate release tablet Indications: Closed fracture of proximal end of left humerus with routine healing, unspecified fracture morphology, subsequent encounter Take 1 tablet by mouth every 6 hours as needed for Pain for up to 7 days. Intended supply: 7 days. Take lowest dose possible to manage pain 28 tablet 0 11/30/2019 12/07/2019 Active Start: 11-30-2019 End: 11-30-2019 oxyCODONE (ROXICODONE) immed iate release tablet 5 mg pantoprazole 40 mg delayed release oral tablet (4 sources) Proton Pump Inhibitor Start: 12-12-2023 take 1 tablet by mouth once daily before breakfast pantoprazole (ProtoNix) 40 MG EC tablet Take 40 mg by mouth every morning (before breakfast). 0 12/12/2023 Active pramipexole dihydrochloride 1.5 mg oral tablet (20 sources) Nonergot Dopamine Agonist Start: 12-07-2023 End: 08-29-2024 take 1 tablet by mouth at bedtime Pramipexole 1.5 mg tablet Active 1.5 mg PO AT BEDTIME August 29, 2024 4:21pm Start: 09-16-2022 take 1 tablet by mateus th once daily at bedtime pramipexole 1.5 mg oral tablet 1 Tablet qhs for 0 days Quantity: 60 {Tablet} Refills: 7 Ordered: 16-Sep-2022 Kelly Olvera DO, DO, Kathleen Start : 16-Sep-2022 Active Start: 08-07-2021 take 1 tablet by mateus th once daily at bedtime Pramipexole Dihydrochloride 1.5 MG Oral Tablet 1 Tablet qhs for 0 days Quantity: 60 {Tablet} Refills: 11 Ordered: 07-Aug-2021 Kelly Olvera DO, DO, Kathleen Start : 07-Aug-2021 Active Start: 06-20-2020 take 1 tablet by mateus th once daily at bedtime Pramipexole Dihydrochloride 1.5 MG Oral Tablet 1 Tablet qhs for 0 days Quantity: 60 {Tablet} Refills: 11 Ordered: 20-Jun-2020 Kelly Olvera DO, DO, Kathleen Start : 20-Jun-2020 Active Start: 04-07-2020 take 1 tablet by mateus th once daily at bedtime Pramipexole Dihydrochloride 1.5 MG Oral Tablet 1 Tablet qhs for 0 days Quantity: 60 {Tablet} Refills: 0 Ordered: 07-Apr-2020 Kelly Olvera DO, DO, Kathleen Start : 07-Apr-2020 Active Comments: pt needs to schedule appointment Start: 09-03-2019 take 1 tablet by mateus th once daily at bedtime Pramipexole Dihydrochloride 1.5 MG Oral Tablet 1 Tablet qhs for 0 days Quantity: 30 {Tablet} Refills: 6 Ordered: 03-Sep-2019 Kelly Olvera DO, DO, Kathleen Start : 03-Sep-2019 Active Start: 06-28-2019 End: 12-07-2023 take 1 tablet by mouth every twenty-four hours at bedtime Pramipexole 1.5 mg tablet extended release 24 hr Discontinued 1.5 mg PO AT BEDTIME 90 November 08, 2023 9:17am December 07, 2023 4:03pm Start: 02-19-2019 take 1 tablet by mateus th once daily at bedtime Pramipexole Dihydrochloride 1.5 MG Oral Tablet 1 Tablet qhs for 0 days Quantity: 30 {Tablet} Refills: 6 Ordered: 19-Feb-2019 Kelly Olvera DO, DO, Kathleen Start : 19-Feb-2019 Active Start: 03-25-2014 End: 02-08-2019 take 1 tablet by mouth at bedtime Pramipexole 0.5 MG tablet Discontinued 0.5 mg PO AT BEDTIME March 24, 2014 11:00pm February 08, 2019 2:34pm Start: 12-27-2011 End: 10-08-2021 take 1 tablet by mouth once daily pramipexole 0.25 mg tablet Indications: Restless legs syndrome (RLS) Take 1 tablet by mouth once daily. 30 tablet 11 12/27/2011 10/08/2021 Discontinued take 1 tablet by mateus th three times daily pramipexole (Mirapex) 0.125 MG tablet Take 0.125 mg by mouth 3 times daily. 0 Active take 1.5 mg by mouth once daily pramipexole (MIRAPEX) 0.125 MG tablet Take 1.5 mg by mouth nightly 0 Active Comment on above: pt needs to schedule appointment Take 1 tablet by mateus th once daily. pravastatin sodium 80 mg oral tablet (4 sources) HMG-CoA Reductase Inhibitor Start: 2 End: 0 take 1 tablet by mouth once daily pravastatin 80 mg tablet Take 1 tablet by mouth once daily. 0 04/12/2012 Active Comment on above: Take 1 tablet by mateus th once daily. 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 Take 1 tablet by mouth daily 90 tablet 3 02/24/2016 Active 3 ml sodium chloride 9 mg/ml injection (2 sources) Start: 0 sodium chloride flush 0.9 % injection 10 mL Completed/Discontinued Medications Medication Drug Class(es) Dates Sig (Normalized) Sig (Original) acetaminophen 325 mg / HYDROcodone bitartrate 5 mg oral tablet (2 sources) Opioid Agonist Start: 11-20-2019 End: 11-30-2019 take 1-2 tablets by mouth every six hours as needed for pain HYDROcodone-acetami nophen (NORCO) 5-325 MG per tablet TAKE 1 TO 2 TABLETS BY MOUTH EVERY 6 HOURS NEEDED FOR PAIN 0 11/20/2019 11/30/2019 Discontinued (Stop Taking at Discharge) acetaminophen 325 mg / oxyCODONE hydrochloride 5 mg oral tablet (12 sources) Opioid Agonist Start: 12-10-2019 End: 07-23-2020 Oxycodone-Acetamino phen (Percocet) 5-325 mg tablet Discontinued 1 {tbl} PO EVERY 6 HOURS as needed December 09, 2019 11:00pm July 23, 2020 12:58pm Start: 11-12-2019 End: 11-14-2019 Oxycodone-Acetaminophen 1 TA BLET tablet Discontinued 1 - 2 {tbl} PO EVERY 6 HOURS NEEDED as needed for Pain 12 November 12, 2019 November 12, 2019 11:00pm November 13, 2019 11:02pm Start: 11-12-2019 End: 11-14-2019 take 1 tablet by mouth every six hours as needed Oxycodone-Acetaminophen Discontinued 1 - 2 TABLET PO EVERY 6 HOURS NEEDED 12 November 12, 2019 November 14, 2019 12:02am amLODIPine 10 mg oral tablet (20 sources) Dihydropyridine Calcium Channel Lorraine Start: 12-14-2021 End: 05-30-2023 take 1 tablet by mouth once daily Amlodipine 10 mg tablet Discontinued 10 mg PO DAILY April 29, 2023 3:51pm May 30, 2023 1:44pm Start: 11-14-2020 End: 12-14-2021 take 1 tablet by mouth once daily Amlodipine 5 mg tablet Discontinued 0 .ROUTE .COMPLEX November 06, 2021 8:12am December 14, 2021 2:09pm TAKE 1 TABLET BY MOUTH EVERY DAY Start: 10-30-2020 End: 11-14-2020 take 1 tablet by mouth once daily Amlodipine 10 mg tablet Discontinued 10 mg PO DAILY October 30, 2020 1:00pm November 14, 2020 8:08am Start: 09-04-2020 End: 10-30-2020 take 2 tablets by mouth once daily Amlodipine (Norvasc) 5 mg tablet Discontinued 10 mg PO DAILY September 04, 2020 2:51pm October 30, 2020 1:01pm Start: 07-23-2020 End: 09-04-2020 take 1 tablet by mouth once daily Amlodipine (Norvasc) 5 mg tablet Discontinued 5 mg PO DAILY July 23, 2020 12:00am September 04, 2020 2:52pm Start: 09-28-2017 End: 02-08-2019 take 1 tablet by mouth once daily Amlodipine 10 MG tablet Discontinued 10 mg PO DAILY September 27, 2017 11:00pm February 08, 2019 2:33pm atorvastatin 80 mg oral tablet (20 sources) HMG-CoA Reductase Inhibitor Start: 01-11-2019 End: 11-11-2023 take 1 tablet by mouth at bedtime Atorvastatin 80 mg tablet Discontinued 80 mg PO AT BEDTIME April 29, 2023 3:51pm November 11, 2023 3:14pm Start: 09-29-2017 End: 01-11-2019 take 1 tablet by mouth once daily Atorvastatin 20 MG tablet Discontinued 20 mg PO DAILY January 10, 2019 3:45am January 11, 2019 7:25am atropine sulfate 0.025 mg / diphenoxylate hydrochloride 2.5 mg oral tablet (8 sources) Anticholinergic, Cholinergic Muscarinic Antagonist, Antidiarrheal Start: 05-08-2019 take 1 tablet by mouth four times daily as needed Lomotil 2.5-0.025 MG Oral Tablet 1 (one) Tablet qid/prn for 0 days Quantity: 60 {Tablet} Refills: 0 Ordered: 20-Jun-2020 Anil YOUSIF Kelly Olvera DO Kelly Start : 08-May-2019 Active Comments: sixty. oar[facility] [place] and [facility] to [facility] 05/08/19. Comment on above: sixty. oar[facility] [place] and [facility] to [facility] 05/08/19. azithromycin 250 mg oral tablet (13 sources) Macrolide Antimicrobial Start: 07-14-2023 End: 10-31-2023 take 2-5 tablets by mouth once daily Azithromycin 250 mg tablet Discontinued 0 PO .COMPLEX 6 July 14, 2023 12:00am October 31, 2023 9:22am take 500 mg today (day 1), then 250 mg for 4 days (days 2-5) PO Start: 04-29-2022 End: 04-11-2023 Azithromycin 250 mg tablet D iscontinued 250 mg PO daily April 28, 2022 11:00pm April 11, 2023 12:09pm 2 tablets today, then 1 tablet daily on days 2 through 5 12 hr buPROPion hydrochloride 100 mg extended release oral tablet (4 sources) Aminoketone Start: 04-11-2023 End: 10-31-2023 take 1 tablet by mouth twice daily Bupropion Hcl (Wellbutrin Sr) 100 mg tablet sustained-release 12 hr Discontinued 100 mg PO TWICE A DAY 120 April 10, 2023 11:00pm October 31, 2023 9:23am celecoxib 400 mg oral capsule (1 source) Nonsteroidal Anti-inflammatory Drug Start: 11-30-2019 End: 11-30-2019 celecoxib (CELEBREX) capsule 400 mg clopidogrel 75 mg oral tablet (20 sources) P2Y12 Platelet Inhibitor Start: 04-12-2012 End: 04-29-2023 take 1 tablet by mouth once daily Clopidogrel (Plavix) 75 mg tablet Discontinued 75 mg PO DAILY February 15, 2022 7:30am April 29, 2023 3:52pm Comment on above: [facility] DULoxetine 30 mg delayed release oral capsule (18 sources) Serotonin and Norepinephrine Reuptake Inhibitor Start: 12-15-2021 End: 01-18-2022 take 1 capsule by mouth once daily, then take 2 capsules by mouth once daily Duloxetine 30 mg capsule,delayed release(DR/EC) Discontinued 30 mg PO DAILY 7 December 15, 2021 12:30pm January 18, 2022 7:25pm x1 week then increase to 60 mg daily. Start: 12-15-2021 End: 11-10-2023 Duloxetine 60 mg capsule,del ayed release(DR/EC) Discontinued 60 mg PO DAILY 60 December 14, 2021 11:00pm November 10, 2023 2:58pm Take 30 mg daily x 1 week then increase to 60 mg daily. Start: 12-14-2021 End: 12-15-2021 take 1 capsule by mouth twice daily Duloxetine 30 mg capsule,delayed release(DR/EC) Discontinued 30 mg PO TWICE A DAY 60 December 13, 2021 11:00pm December 15, 2021 12:31pm famotidine 20 mg oral tablet (1 source) Histamine-2 Receptor Antagonist Start: 11-30-2019 End: 11-30-2019 famotidine (PEPCID) tablet 20 mg flaxseed-omega3,6,9-fat ty acid 1,200-540-132 mg cap (1 source) Start: 04-12-2012 End: 10-08-2021 take 1 capsule by mouth once daily flaxseed-omega3,6,9-fa tty acid 1,200-540-132 mg cap Take 1 capsule by mouth once daily. 0 04/12/2012 10/08/2021 Discontinued Comment on above: Take [address] [facility] once daily. gabapentin 300 mg oral capsule (1 source) Anti-epileptic Agent Start: 11-30-2019 End: 11-30-2019 gabapentin (NEURONTIN) capsule 300 mg hydroCHLOROthiazide 25 mg oral tablet (20 sources) Thiazide Diuretic Start: 09-23-2020 End: 04-29-2023 take 1 tablet by mouth once daily Hydrochlorothiazide 25 mg tablet Discontinued 25 mg PO DAILY October 30, 2020 1:00pm April 29, 2023 3:52pm Start: 09-29-2017 End: 02-08-2019 take 1 tablet by mouth once daily Hydrochlorothiazide 12.5 MG tablet Discontinued 12.5 mg PO DAILY January 10, 2019 3:45am February 08, 2019 2:20pm hydroCHLOROthiazide 25 mg / lisinopril 20 mg oral tablet (1 source) Thiazide Diuretic, Angiotensin Converting Enzyme Inhibitor Start: 04-19-2011 End: 10-08-2021 take 1 tablet by mouth once daily lisinopril-hydrochlorothiazide 20-25 mg ORAL per tablet Indications: Essential hypertension, benign Take 1 tablet by mouth once daily. 30 tablet 11 04/19/2011 10/08/2021 Discontinued Comment on above: Take 1 tablet by mateus th once daily. 4 ml labetalol hydrochloride 5 mg/ml cartridge (2 sources) beta-Adrenerg ic Lorraine Start: 11-30-2019 End: 11-30-2019 labetalol (NORMODYNE;TRANDAT E) injection 10 mg Start: 11-30-2019 labetalol (NOR MODYNE;TRANDATE) injection 5 mg losartan potassium 100 mg oral tablet (20 sources) Angiotensin 2 Receptor Lorraine Start: 05-24-2019 End: 04-29-2023 take 1 tablet by mouth once daily Losartan 100 mg tablet Discontinued 100 mg PO DAILY January 15, 2021 7:51am April 29, 2023 3:52pm Start: 03-22-2019 End: 05-24-2019 take 2 tablets by mouth once daily Losartan 50 mg tablet Discontinued 100 mg PO DAILY March 22, 2019 2:03pm May 24, 2019 2:18pm Start: 03-22-2019 End: 05-24-2019 take 100 mg by mouth once daily Losartan Discontinued 100 MG PO DAILY March 22, 2019 3:03pm May 24, 2019 3:18pm Start: 02-08-2019 End: 03-22-2019 take 1 tablet by mouth once daily Losartan 50 mg tablet Discontinued 50 mg PO DAILY February 08, 2019 2:48pm March 22, 2019 2:03pm Start: 01-11-2019 End: 02-08-2019 take 1 tablet by mouth once daily Losartan 25 MG tablet Discontinued 25 mg PO DAILY January 10, 2019 11:00pm February 08, 2019 2:49pm Titrate up the dose to achieve adequate blood pressure control. Start: 09-29-2017 End: 01-11-2019 take 1 tablet by mouth once daily Losartan 100 MG tablet Discontinued 100 mg PO DAILY January 10, 2019 3:45am January 11, 2019 7:25am Start: 02-05-2015 End: 09-29-2017 take 4 tablets by mouth once daily Losartan 25 MG tablet Discontinued 100 mg PO DAILY February 04, 2015 11:00pm September 29, 2017 2:38pm Start: 02-05-2015 End: 09-29-2017 take 100 mg by mouth once daily Losartan Discontinued 100 MG PO DAILY February 05, 2015 12:00am September 29, 2017 3:38pm Comment on above: Take 50 mg by mouth once daily. metoprolol tartrate 25 mg oral tablet (20 sources) beta-Adrenergic Lorraine Start: 01-12-20 End: 04-29-20 take 1 tablet by mouth twice daily Metoprolol Tartrate 25 mg tablet Discontinued 25 mg PO TWICE A DAY 180 November 06, 2021 8:12am April 29, 2023 3:52pm 24 hr nicotine 0.875 mg/hr transdermal system (20 sources) Cholinergic Nicotinic Agonist Start: 02-20-20 apply 1 dose transdermal route every twenty-four hours Nicoderm CQ 21 MG/24HR Transdermal Patch 24 Hour 1 (one) Patch q24hr for 0 days Quantity: 30 {Patch} Refills: 3 Ordered: 19-Mar-2019 Kelly Olvera DO, DO, Kathleen Start : 19-Mar-2019 Active Start: 09-29-2017 End: 03-22-2019 apply 21 mg transdermal route once daily Nicotine 21 MG patch Discontinued 21 mg TRANSDERM. DAILY January 11, 2019 11:00pm February 08, 2019 2:20pm nitrofurantoin, macrocrystals 25 mg / nitrofurantoin, monohydrate 75 mg oral capsule (1 source) Nitrofuran Antibacterial Start: 09-02-2024 End: 09-07-2024 take 1 capsule by mouth every twelve hours at mealtime Nitrofurantoin Monohyd/M-Cryst (Macrobid) 100 mg capsule Discontinued 100 mg PO Q12H 10 5 September 02, 2024 12:00am September 06, 2024 12:00am September 07, 2024 12:12am must administer with a meal/food nitroglycerin 0.4 mg sublingual tablet (20 sources) Nitrate Vasodilator Start: 04-12-2012 End: 04-29-2023 Nitroglycerin 0.4 mg tablet, sublingual Discontinued 0.4 mg SL Q5M as needed for Chest Pain April 07, 2022 3:06pm April 29, 2023 3:52pm Comment on above: Dissolve 1 tablet un daniel the tongue every 5 minutes as needed for Chest Pain. polyethylene glycol 3350 707830 mg / potassium chloride 2980 mg / sodium bicarbonate 6720 mg / sodium chloride 5840 mg / sodium sulfate 57274 mg powder for oral solution (1 source) Osmotic Laxative Start: 04-23-2014 End: 10-08-2021 peg 3350-electrolytes (COLYTE) 240-22.72-6.72 gram solution Take 4000 ml as directed. Follow written instructions from the doctor's office. 1 Container 0 04/23/2014 10/08/2021 Discontinued Comment on above: Take 4000 ml as dire cted. Follow written instructions from the doctor's office. microencapsulated potassium chloride 20 meq extended release oral tablet (6 sources) Start: 05-05-2022 End: 11-10-2023 take 1 tablet by mouth once daily Potassium Chloride 20 mEq tablet,ER particles/crystals Discontinued 20 meq PO DAILY May 04, 2022 11:00pm November 10, 2023 2:56pm predniSONE 20 mg oral tablet (6 sources) Start: 04-29-2022 End: 04-11-2023 take 1 tablet by mouth twice daily Prednisone 20 mg tablet Discontinued 20 mg PO TWICE A DAY April 28, 2022 11:00pm April 11, 2023 12:10pm promethazine hydrochloride 25 mg oral tablet (9 sources) Phenothiazine Start: 12-10-2019 End: 10-30-2020 take 1 tablet by mouth every six hours as needed Promethazine 25 mg tablet Discontinued 25 mg PO EVERY 6 HOURS as needed December 09, 2019 11:00pm October 30, 2020 12:38pm Start: 11-30-2019 End: 11-30-2019 promethazine (PHENERGAN) inj ection 6.25 mg Start: 11-14-2019 promethazine ( PHENERGAN) 25 MG tablet TAKE 1 TABLET EVERY 4 TO 6 HOURS NEEDED FOR NAUSEA 0 11/14/2019 Active ticagrelor 90 mg oral tablet (20 sources) Start: 06-28-2019 End: 07-23-2020 take 1 tablet by mouth twice daily Ticagrelor 90 mg tablet Discontinued 90 mg PO TWICE A DAY 180 August 27, 2019 8:31am July 23, 2020 12:58pm On Hold: Plavix for orthopedic surgery Start: 01-11-2019 End: 05-24-2019 take 1 tablet by mouth twice daily Ticagrelor 90 mg tablet Discontinued 90 mg PO TWICE A DAY 180 February 08, 2019 2:48pm May 24, 2019 2:19pm take 1 tablet by mateus th once daily Brilinta 90 MG Oral Tablet 1 qd (90 MG) Active Comment on above: Take by mouth. traZODone hydrochloride 50 mg oral tablet (20 sources) Serotonin Reuptake Inhibitor Start: 9 End: 2 take 1 tablet by mouth at bedtime as needed for sleep Trazodone 50 MG tablet Discontinued 50 mg PO AT BEDTIME as needed for Sleep June 28, 2019 12:00am December 14, 2021 2:10pm Start: 03-14-2019 take 1 tablet by mateus th once daily at bedtime traZODone HCl 50 MG Oral Tablet 1 (one) Tablet qhs for 30 days Quantity: 30 {Tablet} Refills: 2 Ordered: 14-Mar-2019 Kelly Olvera DO, DO, Kathleen Start : 14-Mar-2019 Active Start: 02-19-2019 take 1 tablet by mateus th once daily at bedtime traZODone HCl 50 MG Oral Tablet 1 (one) Tablet qhs for 30 days Quantity: 30 {Tablet} Refills: 2 Ordered: 19-Feb-2019 Angela Moore Start : 19-Feb-2019 Active varenicline (1 source) Partial Cholinergic Nicotinic Agonist Start: 04-12-2012 End: 10-08-2021 Varenicline (CHANTIX) 0.5 (11)-1 (42) mg tablet Indications: Tobacco use disorder , Palpitation Take one 0.5mg tablet by mouth once daily for 3 days, then increase to one 0.5mg tablet twice daily for 3 days, then increase to one 1mg tablet twice daily. 1 Package 0 04/12/2012 10/08/2021 Discontinued Comment on above: Take one 0.5mg table t by mouth once daily for 3 days, then increase to one 0.5mg tablet twice daily for 3 days, then increase to one 1mg tablet twice daily. Problems Active Problems Problem Classification Problem Date Documented Da te Episodic/Chronic Abdominal pain (13 sources) Generalized abdominal pain; Translations: [Abdominal pain, diffuse] Resolved: 0 05-03-2019 Episodic Acute bronchitis (7 sources) Acute bronchitis; Translations: [Acute bronchitis, unspecified] 07-14-2023 Episodic Acute myocardial infarction (20 sources) Acute myocardial infarction; Translations: [Acute myocardial infarction involving right coronary artery, unspecified MN type] 02-19-2019 Chronic Comment on above: x2-- s/p stents Acute myocardial infarction (19 sources) Acute myocardial infarction Administrative/social admission (7 sources) Patient encounter status; Translations: [Encounter for tobacco use cessation counseling] 06-20-2020 Episodic Comment on above: less than 10 min Anxiety disorders (6 sources) Mixed anxiety and depressive disorder; Translations: [Anxiety disorder, unspecified] 12-14-2021 Chronic Chronic obstructive pulmonary disease and bronchiectasis (18 sources) Chronic obstructive lung disease; Translations: [Chronic obstructive pulmonary disease, unspecified] Onset: 9 02-21-2009 Chronic Coronary atherosclerosis and other heart disease (20 sources) Multi vessel coronary artery disease; Translations: [Coronary arteriosclerosis in robinson artery] Onset: 6 02-19-2019 Chronic Comment on above: EF 55% - RCA Segmented LV systoli c dysfunction- MildLVEF: by LV gram 55 %Single vessel CAD of the RCANon obstructive coronary arteriesAcute occlusion of proximal RCA upstream from stent.Successful PTCA/EMPERATRIZ of occluded proximal RCA, upstream from previous stent, utilizing a 3.0 x 16 promus Synergy, post dilated with a 3.0, 3.25 and 3.5 x 12 NC Balloon. 100%-->0%, no dissection. Pt had less than optimal stent deployment at end of first case despite 3.25 NC Balloon.Approximately 5 minutes after 1st procedure was completed and before pt had left greens laborer table, pt had recurrent severe SSCP with new ST elevation on monitor. Emergent reprep and relook showed acute stent thrombosis. Emergent PTCA with 2.0 x 12 balloon, followed by Foosland catheter, followed by IVUS performed.Pt given Integrillin bolus and gtt, followed by post stent dilatation with a 3.0 x 10 Angiosculpt, followed by a 3.5 x 12 NC balloon. Repeat IVUS confirmed appropriate stent deployment and no resolution of scar tissue protruding through stent struts. Coronary atherosclerosis and other heart disease (19 sources) Coronary atherosclerosis and other heart disease Disorders of lipid metabolism (20 sources) Mixed hyperlipidemia; Translations: [Hyperlipidemia, mixed] 02-19-2019 Chronic Essential hypertension (20 sources) Essential hypertension; Translations: [Benign essential hypertension] Onset: 6 02-24-2016 Chronic Fluid and electrolyte disorders (6 sources) Hypokalemia; Translations: [Hypokalemia] 05-05-2022 Episodic Fracture of upper limb (13 sources) Closed fracture of upper end of humerus; Translations: [Fracture of clavicle] 01-10-2019 Episodic Genitourinary symptoms and ill-defined conditions (4 sources) Increased frequency of urination; Translations: [Frequency of micturition] Onset: 5 08-08-2024 Episodic Headache; including migraine (3 sources) Migraine; Translations: [Other forms of migraine] 01-10-2007 Chronic Immunizations and screening for infectious disease (11 sources) Needs influenza immunization; Translations: [Encounter for immunization] 04-11-2023 Episodic Mood disorders (9 sources) Recurrent major depressive episodes; Translations: [Major depressive disorder, recurrent, unspecified] Onset: 9 10-15-2008 Chronic Nausea and vomiting (4 sources) Nausea; Translations: [Nausea] Onset: 8 11-08-2007 Episodic Osteoarthritis (4 sources) Localized osteoarthrosis; Translations: [Unilateral primary osteoarthritis, unspecified hip] Onset: 8 04-19-2008 Chronic Osteoporosis (11 sources) Senile osteoporosis; Translations: [Age-related osteoporosis without current pathological fracture] Onset: 5 01-10-2007 Chronic Other circulatory disease (4 sources) Disorder of carotid artery; Translations: [Disorder of arteries and arterioles, unspecified] 11-11-2023 Chronic Other circulatory disease (2 sources) Disorder of arteries and arterioles, unspecified; Translations: [Unspecified disorders of arteries and arterioles] Onset: 5 11-11-2023 Chronic Other circulatory disease (1 source) History of transient ischemic attack; Translations: [Personal history of transient ischemic attack (TIA), and cerebral infarction without residual deficits] 12-12-2023 Episodic Other connective tissue disease (6 sources) Hand pain; Translations: [Pain in left hand] 12-14-2021 Episodic Other ear and sense organ disorders (1 source) Impacted cerumen in right ear; Translations: [Impacted cerumen, right ear] Episodic Other gastrointestinal disorders (20 sources) Diarrhea; Translations: [Diarrhea] Resolved: 0 05-03-2019 Episodic Other hereditary and degenerative nervous system conditions (20 sources) Restless legs; Translations: [RLS (restless legs syndrome)] 02-19-2019 Chronic Other injuries and conditions due to external causes (6 sources) H/O: fracture; Translations: [Personal history of (healed) traumatic fracture] 12-14-2021 Episodic Other injuries and conditions due to external causes (6 sources) Fracture of bone; Translations: [Other injury of unspecified body region, initial encounter] 12-14-2021 Episodic Other lower respiratory disease (14 sources) Dyspnea on exertion; Translations: [Dyspnea, unspecified] Onset: 6 02-24-2016 Episodic Other lower respiratory disease (4 sources) Other forms of dyspnea; Translations: [Other respiratory abnormalities] Episodic Other lower respiratory disease (2 sources) Cough; Translations: [Acute cough] 06-05-2024 Episodic Other nervous system disorders (6 sources) Chronic pain; Translations: [Other chronic pain] 12-14-2021 Chronic Other nervous system disorders (1 source) Other chronic pain; Translations: [Other chronic pain] Onset: 4 Chronic Other non-traumatic joint disorders (4 sources) Hip pain; Translations: [Pain in left hip] 12-20-2023 Episodic Other nutritional; endocrine; and metabolic disorders (20 sources) Body mass index 25-29 - overweight; Translations: [BMI 26.0-26.9,adult] Resolved: 9 02-19-2019 Chronic Other nutritional; endocrine; and metabolic disorders (2 sources) Body mass index 25-29 - overweight; Translations: [BMI 25.0-25.9,adult] Resolved: 9 06-20-2020 Episodic Other nutritional; endocrine; and metabolic disorders (5 sources) Overweight in adulthood with body mass index of 25 or more but less than 30; Translations: [BMI 25.0-25.9,adult] Resolved: 9 06-20-2020 Episodic Residual codes; unclassified (20 sources) Insomnia; Translations: [Insomnia] 02-19-2019 Episodic Residual codes; unclassified (6 sources) History of operative procedure on shoulder; Translations: [Other specified postprocedural states] 12-14-2021 Episodic Residual codes; unclassified (4 sources) Patient noncompliance - general; Translations: [General patient noncompliance] 04-11-2023 Episodic Residual codes; unclassified (4 sources) Tobacco user; Translations: [Tobacco use] 10-31-2023 Episodic Residual codes; unclassified (3 sources) Tobacco use; Translations: [Tobacco use disorder] 10-31-2023 Episodic Screening and history of mental health and substance abuse codes (2 sources) Tobacco smoking behavior - finding; Translations: [Smoking addiction] Onset: 6 02-24-2016 Chronic Substance-related disorders (20 sources) Smoker; Translations: [Smoker] Onset: 6 02-19-2019 Chronic Transient cerebral ischemia (5 sources) Transient cerebral ischemia; Translations: [Transient cerebral ischemic attack, unspecified] 11-10-2023 Chronic Unclassified (19 sources) RLS (restless legs syndrome) Unclassified (19 sources) CAD, multiple vessel Unclassified (20 sources) Unclassified (13 sources) BMI 25.0-25.9,adult Unclassified (1 source) Acute cough; Translations: [Acute cough] Onset: Unclassified (2 sources) Carotid artery disease; Translations: [I77.9 - Disorder of arteries and arterioles, unspecified] Past or Other Problems Problem Classification Problem Date Documented Da te Episodic/Chronic Coronary atherosclerosis and other heart disease (8 sources) Stented coronary artery; Translations: [Presence of coronary angioplasty implant and graft] Onset: 01-10-2019 Episodic Comment on above: Acute occlusion of p roximal RCA upstream from stent.Successful PTCA/EMPERATRIZ of occluded proximal RCA, upstream from previous stent, utilizing a 3.0 x 16 promus Synergy, post dilated with a 3.0, 3.25 and 3.5 x 12 NC Balloon. 100%-->0%, no dissection. Pt had less than optimal stent deployment at end of first case despite 3.25 NC Balloon.Approximately 5 minutes after 1st procedure was completed and before pt had left greens laborer table, pt had recurrent severe SSCP with new ST elevation on monitor. Emergent reprep and relook showed acute stent thrombosis. Emergent PTCA with 2.0 x 12 balloon, followed by Foosland catheter, followed by IVUS performed.Pt given Integrillin bolus and gtt, followed by post stent dilatation with a 3.0 x 10 Angiosculpt, followed by a 3.5 x 12 NC balloon. Repeat IVUS confirmed appropriate stent deployment and no resolution of scar tissue protruding through stent struts. Gastritis and duodenitis (3 sources) Acute hemorrhagic gastritis; Translations: [Acute gastritis with bleeding] Onset: 12-28-2007 04-16-2008 Episodic Other gastrointestinal disorders (3 sources) Flatulence, eructation and gas pain; Translations: [Flatulence] Onset: 11-08-2007 11-08-2007 Episodic Other injuries and conditions due to external causes (1 source) Personal history of (healed) traumatic fracture; Translations: [Personal history of (healed) traumatic fracture] Onset: 12-12-2023 Episodic Other non-traumatic joint disorders (3 sources) Pain in left hip; Translations: [Pain in left hip] Onset: 12-12-2023 Episodic Other non-traumatic joint disorders (2 sources) Pain in left shoulder; Translations: [Left shoulder pain] Onset: 12-12-2023 12-12-2023 Episodic Unclassified (20 sources) Encounter for tobacco use cessation counseling; Translations: [Patient encounter status] 02-19-2019 Comment on above: less than 10 min Unclassified (17 sources) Deliveries (Parity); Translations: [Deliveries (Parity)] 02-19-2019 Comment on above: 4. Unclassified (17 sources) Pregnancies (); Translations: [Pregnancies ()] 02-19-2019 Comment on above: 4. Unclassified (16 sources) BMI 26.0-26.9,adult Unclassified (18 sources) Abdominal pain, diffuse Results Test Name Value Interpretation Reference Range Facility Oncology Visit Reporton 05 Oncology Visit Report [facility] [address] [place] [address] OFFICE VISIT Date of Service: 11/14/24 1248 MR#: [id number] Acct: [id number] Name: GIOVANNI LOMAX Rep #: [id number] : 1955 From: Bárbara Coburn NP, NP -Daquan Age/Sex: 69/F Location: [facility] Status: Signed Unable Date 11/14/24 Patient: GIOVANNI LOMAX : 1955 Dear Monie, We recently received a referral from you for Ms. Lomax as she meets criteria for lung cancer screening. We have made multiple attempts to reach her to schedule a shared medical decision-making visit and low- dose CT scan of the chest. Unfortunately, she/he has not returned our phone calls. As you know, early detection is stout, especially with patients who are or have been heavy smokers. Because low-dose chest CT scans can significantly increase chances of survival in lung cancer patients when the cancer is caught early through screening, we will be happy to include her in the screening program if she verbalizes interest to you in the future. Please contact the lung cancer screening program at [facility] at with any further questions or concerns. Sincerely, Bárbara Coburn APRN-HOWIE, [facility] 11/14/24 1249 Date Bárbara Noble Signature: Date (if applicable) CC: Dr. Leonidas Traore MD Normal [facility] MR/Juli 09-12-2024 /NAIN [facility] [address] [place] [address] OFFICE VISIT Date of Service: 09/12/24 MR#: [id number] Acct: [id number] Name: GIOVANNI LOMAX Rep #: [id number] : 1955 Provider: KAILEY Hawthorne Age/Sex: 69/F Location: [facility] Status: Signed Intake Vital Signs 08/08/24 13:38 09/12/24 14:12 09/12/24 14:52 Height 5 ft 4 in Weight: 176 lb 6 oz 178 lb BMI 30.2 BP 148/80 H 190/120 H 178/108 H Blood Pressure Location Lt brachial Rt radial Lt brachial Position Sitting Sitting Sitting Respiration 18 16 Pulse 110 H 104 H Pulse Source Monitor Monitor Temp 98 F 98.4 F Temp Source Temporal Temporal Pulse Oximetry (%) 95 93 Oxygen Delivery Method room air room air Intake Visit Reasons: Disorder of arteries arterioles Is patient in pain?: Yes Allergies No Known Allergies Allergy (Verified 09/12/24 14:17) Is last menstrual period known: No Post menopausal: Yes Patient : No Have you fallen in the past year?: No PFSH Medical History Carotid artery disease Urinary frequency History of TIA (transient ischemic attack) Nausea Chronic left hip pain Left shoulder pain Anxiety Smoker ICD (implantable cardioverter-defibril lator) in place Myocardial infarct Health care maintenance Colon cancer screening Flu vaccine need Patient noncompliance Tobacco abuse Anxiety and depression Left hand pain History of fracture of clavicle Fracture Depression Chronic pain COPD (chronic obstructive pulmonary disease) Osteoporosis Pre-op chest exam Hyperlipidemia Atherosclerotic heart disease of robinson coronary artery without angina pectoris ST elevation myocardial infarction (STEMI) Hypertension Surgical History History of tonsillectomy History of oophorectomy History of hysterectomy History of shoulder surgery Stented coronary artery (01/10/19) Family History Father , 52 Myocardial infarction Heart disease Hyperlipemia Brother Myocardial infarction CAD (coronary artery disease) CABG and stents Mother Arthritis Depression Osteoporosis Seizures Son Suicide Depression Other Cancer Social History housing: house Smoking Status: Current every day smoker tobacco type: cigarettes Tobacco: How many years used: 50 alcohol intake: current alcohol intake frequency: holidays/special occasions only Alcohol type: wine substance use type: marijuana caffeine: Yes Type: coffee Number of servings: 3 what type of physical activity do you participate in: none HPI HPI HPI: GIOVANNI LOMAX, is a 69 F who presents to the office today for evaluation of carotid artery disease as referred by her PCP Dr. Traore. She was admitted to [facility] for stroke workup in November 2023 and we were consulted and saw her as an inpatient; at that time she presented with slurred speech and LUE weakness that resolved within about 10 minutes of her arrival to the ER via EMS and was also notably hypertensive. Given her left- sided symptoms, concern was for significant R ICA stenosis/R hemispheric event. Head CT was negative. Brain MRI was negative for acute CVA. CTA at that time revealed by Dr. Denny's measure R ICA with 32% stenosis by NASCET. Carotid duplex had correlated to <50% ICA stenosis bilaterally. She reports in the interval since this hospitalization she has not had any recurrence of symptoms concerning for stroke or TIA. She has continued to take ASA 81mg daily, Plavix 75mg daily, and A torvastatin 80mg daily. She is quite hypertensive here in the office today, improved somewhat on recheck at the end of her appt. She states she had not taken any of her blood pressure medications this morning. She denies any chest pain, SOB worse than usual, vision changes, headache. ROS General General: Yes fatigue; No appetite, colon cancer, breast cancer or weakness HEENT HEENT: No difficulty swallowing, eye injury, eye surgery, swollen glands or hoarseness Endo Endocrine: No thyroid disease, diabetes mellitus, thyroid cancer, Hair loss, heat intolerance or cold intolerance Skin Skin: No rash or changing moles Musc Musculoskeletal: Yes arthritis; No back problems, rheumatoid arthritis, gout or joint pain Cardio Cardiovascular: Yes heart disease, high blood pressure, heart attack and heart stent; No murmur, pacemaker, atrial fibrillation, palpitations, shortness of breat with exertion or chest pain Psych Psychiatric: Yes depression and anxiety; No hearing voices Resp Respiratory: Yes shortness of breath, Yes sleep apnea, Yes cough, Yes COPD, No asthm (more content not included)... Normal [facility] Urine Cultureon 09-02-2024 [facility] Presumptive E. coli [place] Count >100,000 Presumptive E. coli: REACTION Ampicillin Islt RON 4 Ampicillin+Sulbac Islt RON <=2 S Cefepime Islt RON <=0.12 S cefTRIAXone Islt RON <=0.25 S Ciprofloxacin Islt RON <=0.06 S B-Lactamase Extended Susc Islt NEG Gentamicin Islt RON <=1 S levoFLOXacin Islt RON <=0.12 S Meropenem Islt RON <=0.25 S Nitrofurantoin Islt RON <=16 S Pip+Tazo Islt RON <=4 S TMP SMX Islt RON <=20 S Normal [facility] Comment on above: Performed By: #### M [id number], L400.0001 ####[facility] [id number] [place], [address] Bilirubin Test strip Ql (U)O rdered By: Katie Washington on 08-31-2024 Bilirubin Ql (U) Negative Negative [facility] Epithelial cells.squamous LM Ql (Urine sed)Ordered By: Katie Washington on 08-31-2024 Epithelial cells.squamous LM.HPF (Urine sed) [#/Area] 0 /[HPF] 5-10 [facility] Glucose Ql (U)Ordered By: Hamilton Washington on 08-31-2024 Urine Glucose (UA) Normal mg/dl Normal [facility] Ketones Test strip Ql (U)Ord ered By: Katie Washington on 08-31-2024 Ketones Ql (U) Negative Negative [facility] Microscopic analysis of urin e for red blood cells (RBC)Ordered By: Katie Felix on 08-31-2024 Urine RBC 5-10 SEEN /hpf 0-5 [facility] Mucus LM Ql (Urine sed)Order ed By: Katie Washington on 08-31-2024 Mucus Ql (Urine sed) 0 SEEN /hpf [facility] Nitrite Test strip Ql (U)Ord ered By: Katie Felix on 08-31-2024 Nitrite Ql (U) Positive High Negative [facility] Office Visit Reporton 2024 Office Visit Report [facility] [address] [place] [address] OFFICE VISIT Date of Service: 08/31/24 MR#: [id number] Acct: [id number] Patient: GIOVANNI LOMAX Rep #: [id number] : 1955 Provider: DWAINE NURSE Age/Sex: 69/F Location: [facility] Status: Signed Intake Vital Signs 08/08/24 13:38 Height 5 ft 4 in Weight: 176 lb 6 oz BMI 30.2 BP 148/80 H Blood Pressure Location Lt brachial Position Sitting Respiration 18 Pulse 110 H Pulse Source Monitor Temp 98 F Temp Source Temporal Pulse Oximetry (%) 95 Oxygen Delivery Method room air Intake Visit Reasons: PROLIA-$0 Chief Complaint: FU Chronic Conditions Allergies No Known Allergies Allergy (Verified 08/08/24 13:35) Have you fallen in the past year?: No Office Procedures Injections Is this a patient provided medication?: No Office Meds Prolia 60 mg/mL subcutaneous syringe Performing Provider: Leonidas Traore MD Performing Location: [facility] Administered by: Chelsie Steel on 08/31/24 13:13 Dose Route Admin Location Dispensed Lot Number Expiration Date NDC Man ufacturer 60 mg subcut Right arm 1 mL [id number] 11/07/26 79477-482-66 AMGEN Comments: Patient here for initial Prolia injection; tolerated with mild pain. Patient remained in office for 15 minutes post-injection for monitoring; no adverse effect noted. BUY BILL Assessment and Plan Assessment and Plan Orders: Orders Prolia Injection 08/31/24 M81.0 - Age-related osteoporosis without current pathological fracture Clinical Quality Measures Falls Risk Screening/Assistive Devices Have you fallen in the past year?: No 09/04/24 0943 Date Wolf Noble Signature: Date (if applicable) CC: KAILEY Antony Normal [facility] Protein Test strip Ql (U)Ord ered By: Katie Washington on 08-31-2024 Protein Ql (U) 30 mg/dl High Negative [facility] Urinalysis, Completeon 08-31 BACTERIA 2+ /hpf Normal None Seen [facility] Comment on above: Order Comment: LEONELA CTOR TO SPECIFY Performed By: #### M 100.2200, L400.0001 #### [facility] [address] [place], [address] EPI,SQUAMOUS 0-5 SEEN Normal 5-10 [facility] Comment on above: Order Comment: LEONELA CTOR TO SPECIFY Performed By: #### M 100.2200, L400.0001 #### [facility] [address] [place], [address] RBC 5-10 SEEN Normal 0-5 [facility] Comment on above: Order Comment: LEONELA CTOR TO SPECIFY Performed By: #### M 100.2200, L400.0001 #### [facility] [address] [place], [address] WBC 25-50 SEEN Normal 0-5 [facility] Comment on above: Order Comment: LEONELA CTOR TO SPECIFY Performed By: #### M 100.2200, L400.0001 #### [facility] [address] [place], [address] Mucus Ql (Urine sed) [address] [facility] Comment on above: Order Comment: LEONELA CTOR TO SPECIFY Performed By: #### M 100.2200, L400.0001 #### [facility] [address] [place], [address] Urine blood detectionOrdered By: Katie Washington on 08-31-2024 Urine Occult Blood 25 /ul High Negative [facility] Urine clarityOrdered By: Justen Washington on 08-31-2024 Clarity (U) Sl. Cloudy Clear [facility] Urine color determinationOrd ered By: Katie Washington on 08-31-2024 Color (U) Yellow Yellow [facility] Urine cultureOrdered By: Justen Washington on 08-31-2024 Bacteria identified Cx Nom (U) Presumptive E. coli Abnormal [facility] Urine leukocyte esterase det ection by dipstickOrdered By: Katie Washington on 08-31-2024 Leukocyte esterase Test strip Ql (U) 100 /ul High Negative [facility] Urine pHOrdered By: Katie F indeverardo on 08-31-2024 pH (U) 7.0 [pH] 5.0 - 8.0 [facility] Urine sediment bacteria coun t by microscopy (number/high power field)Ordered By: Katie Washington on 08-31-2024 Bacteria LM.HPF (Urine sed) [#/Area] 2 /[HPF] None Seen [facility] Urine specific gravity measu rementOrdered By: Katie Washington on 08-31-2024 Specific gravity (U) [Rel density] 1.010 1.002-1.030 [facility] Urobilinogen Ql (U)Ordered B y: Katie Washington on 08-31-2024 Urine Urobilinogen Normal mg/dl Normal [facility] White blood cell countOrdere d By: Katie Washington on 08-31-2024 Urine WBC 25-50 SEEN /hpf 0-5 [facility] Urine Cultureon 08-10-2024 URC Culture exhibits no growth. Normal [facility] Comment on above: Performed By: #### M 100.2200 #### [facility] [address] [place], [place], [id number] Albumin to globulin ratioOrd ered By: Leonidas Traore on 08-08-2024 Albumin/Globulin [Mass ratio] 0.9 {ratio} 0.9-2.4 [facility] Bacteria LM.HPF (Urine sed) [#/Area]Ordered By: Leonidas Traore on 08-08-2024 Urine Bacteria RARE /hpf None Seen [facility] Bilirubin Test strip Ql (U)O rdered By: Leonidas Traore on 08-08-2024 Bilirubin Ql (U) Negative Negative [facility] Bilirubin, totalOrdered By: Leonidas Traore on 08-08-2024 Bilirubin [Mass/Vol] 0.40 mg/dL 0.20-1.00 [facility] Comment on above: For patients on eltr ombopag therapy, use of Dimension [place] TBIL is not recommended. Blood urea nitrogen (BUN)/cr eatinine ratioOrdered By: Leonidas Traore on 08-08-2024 Urea nitrogen/Creatinine [Mass ratio] 26.8 mg/mg High 10-20 [facility] Carbon dioxide measurementOr dered By: Leonidas Traore on 08-08-2024 CO2 [Moles/Vol] 30.0 mmol/L 21.0-32.0 [facility] Chloride measurementOrdered By: Leonidas Traore on 08-08-2024 Chloride [Moles/Vol] 102 mmol/L 98-107 [facility] Comprehensive Metabolic Prof ilon 08-08-2024 Albumin [Mass/Vol] 3.6 g/dL Normal 3.2-5.0 [facility] Comment on above: Performed By: #### L 500.4100, L500.4050 #### [facility] [address] [place], [address] Albumin/Globulin [Mass ratio] 0.9 {ratio} Normal 0.9-2.4 [facility] Comment on above: Performed By: #### L 500.4100, [id number] #### [facility] [address] [place], [address] ALK P 70 U/L Normal 45-117 [facility] Comment on above: Performed By: #### L 500.4100, [id number] #### [facility] [address] [place], [address] ALT [Catalytic activity/Vol] 26 U/L Normal 13-56 [facility] Comment on above: Performed By: #### L 500.4100, [id number] #### [facility] [address] [place], [address] AST [Catalytic activity/Vol] 15 U/L Normal 15-37 [facility] Comment on above: Performed By: #### L 500.4100, [id number] #### [facility] [address] [place], [address] Bilirubin [Mass/Vol] 0.40 mg/dL Normal 0.20-1.00 [facility] Comment on above: Result Comment: For patients on eltrombopag therapy, use of Dim[place] TBIL is not recommended. Performed By: #### L 500.4100, [id number] #### [facility] [address] [place], [address] BUN/CRE 26.8 RATIO High 10-20 [facility] Comment on above: Performed By: #### L 500.4100, [id number] #### [facility] [address] [place], [address] CA,Total 9.4 mg/dL Normal 8.5-10.1 [facility] Comment on above: Performed By: #### L 500.4100, [id number] #### [facility] [address] [place], [address] Chloride [Moles/Vol] 102 mmol/L Normal 98-107 [facility] Comment on above: Performed By: #### L 500.4100, [id number] #### [facility] [address] [place], [address] CO2 [Moles/Vol] 30.0 mmol/L Normal 21.0-32.0 [facility] Comment on above: Performed By: #### L 500.4100, [id number] #### [facility] [address] [place], [address] Creatinine [Mass/Vol] 0.74 mg/dL Normal 0.55-1.02 [facility] Comment on above: Result Comment: The validity of the calculated GFR GFRAA in patients over 70 years has not been determined. Clinical correlation is essential. Performed By: #### L 500.4100, L500.4050 #### [facility] [address] [place], [address] EST GFR - AA 100 mL/min Normal >60 [facility] Comment on above: Result Comment: Afri can Kyrgyz GFR Calc Performed By: #### L 500.4100, L500.4050 #### [facility] [address] [place], [address] GAP 7 Normal 5-15 [facility] Comment on above: Performed By: #### L 500.4100, [id number] #### [facility] [address] [place], [address] GFR/1.73 sq M.predicted among non-blacks MDRD (S/P/Bld) [Vol rate/Area] 82 mL/min/{1.73_m2} Normal >60 [facility] Comment on above: Result Comment: Non- GFR Calc Performed By: #### L 500.4100, L500.4050 #### [facility] [address] [place], [address] Globulin (S) [Mass/Vol] 4.1 g/dL Normal 2.2-4.2 [facility] Comment on above: Performed By: #### L 500.4100, L500.4050 #### [facility] [address] [place], [address] Glucose [Mass/Vol] 105 mg/dL Normal 74-106 [facility] Comment on above: Result Comment: Fast ing Glucose result from 100 to 125 mg/dL suggests IMPAIRED HOMEOSTASIS per A.D.A. criteria. Performed By: #### L 500.4100, L500.4050 #### [facility] [address] [place], [address] Potassium [Moles/Vol] 4.4 mmol/L Normal 3.5-5.1 [facility] Comment on above: Performed By: #### L 500.4100, L500.4050 #### [facility] [address] [place], [address] Sodium [Moles/Vol] 139 mmol/L Normal 136-145 [facility] Comment on above: Performed By: #### L 500.4100, L500.4050 #### [facility] [address] [place], [address] T PROT 7.7 g/dL Normal 6.4-8.2 [facility] Comment on above: Performed By: #### L 500.4100, L500.4050 #### [facility] [address] [place], [address] Urea nitrogen [Mass/Vol] 20 mg/dL High 7-18 [facility] Comment on above: Performed By: #### L 500.4100, L500.4050 #### [facility] [address] [place], [address] Epithelial cells.squamous LM Ql (Urine sed)Ordered By: Leonidas Traore on 08-08-2024 Epithelial cells.squamous LM.HPF (Urine sed) [#/Area] 5 /[HPF] 5-10 [facility] Estimated glomerular filtrat ion rate (GFR) AmericanOrdered By: Leonidas Traore on 08-08-2024 Estimated GFR (MDRD) Amer 100 mL/min >60 [facility] Comment on above: GFR Calc Glomerular filtration rate ( GFR) estimationOrdered By: Leonidas Traore on 08-08-2024 Estimated GFR (MDRD) Non-Af Amer 82 mL/min >60 [facility] Comment on above: Non- GFR Calc Glucose Ql (U)Ordered By: Kyung Traore on 08-08-2024 Urine Glucose (UA) Normal mg/dl Normal [facility] Glucose measurementOrdered B y: Leonidas Traore on 08-08-2024 Glucose [Mass/Vol] 105 mg/dL 74-106 [facility] Comment on above: Fasting Glucose resu lt from 100 to 125 mg/dL suggests IMPAIRED HOMEOSTASIS per A.D.A. criteria. High density lipoprotein (HD L) measurementOrdered By: Leonidas Traore on 08-08-2024 Cholesterol in HDL [Mass/Vol] 53 mg/dL >40 [facility] Comment on above: The drugs N-Acetylcy steine and Metamizole may falsely depress this assay. Reference Range HDL <40 mg/dL Low HDL Cholesterol HDL >or= 60 mg/dL High HDL Cholesterol Internal Medicine Office Vis iton 08-08-2024 Internal Medicine Office Visit [facility] [address] [place] [address] [place] [address] OFFICE VISIT Date of Service: 08/08/24 MR#: [id number] Acct: [id number] Name: GIOVANNI LOMAX Rep #: [id number] : 1955 Provider: Dr. 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 Accompanied by: Self Is patient in pain?: No Allergies No Known Allergies Allergy (Verified 08/08/24 13:35) Medications ???Medication ???Instructions ???Recorded ???Confirmed ???Type clopidogrel 75 mg tablet (Plavix) 75 mg PO DAILY antiplatelet #90 1 08/08/24 Rx tabs hydrochlorothiazide 25 mg tablet 25 mg PO DAILY BP #90 tabs 2 3 08/08/24 Rx losartan 100 mg tablet 100 mg PO DAILY dose increase (BP) 04/29/23 08/08/24 Rx #90 tabs metoprolol tartrate 25 mg tablet 25 mg PO BID BP #180 tabs 04/29/23 08/08/24 Rx nitroglycerin 0.4 mg sublingual 0.4 mg sublingual Q5M PRN Chest 08/08/24 Rx tablet Pain #25 tabs amlodipine 10 mg tablet 10 mg PO DAILY BP #90 tabs 3 08/08/24 Rx albuterol sulfate 90 mcg/actuation 2 inh inhalation Q6H PRN shortne ss 11/10/23 08/08/24 History aerosol inhaler (ProAir HFA) of breath or wheezing aspirin 81 mg tablet,delayed 81 mg PO DAILY@0800 90 days #90 08/08/24 Rx release tabs atorvastatin 80 mg tablet 80 mg PO QHS 90 days #90 tabs 05/0 10/0108/08/24 Rx denosumab 60 mg/mL subcutaneous 60 mg subcut [id number] #1 mL 08/08/24 Rx syringe (Prolia) pantoprazole 40 mg tablet,delayed 40 mg PO DAILY #90 tabs 12/12/23 08/08/24 Rx release albuterol sulfate 90 mcg/actuation 1 - 2 puff inhalation Q6H PRN CT N 02/29/24 08/08/24 Rx aerosol inhaler Sob /Or Wheezing #8.5 grams pramipexole 1.5 mg tablet 1.5 mg PO QHS #30 tabs 07/02/24 Rx fluticasone fur. 100 mcg-umeclid 1 inh inhalation Q24H #60 ea 08/0808/08/24 Rx 62.5 mcg-vilant 25 mcg inhalat.powder (Trelegy Ellipta) Have you fallen in the past year?: No Nurse's Note: possible uti PFSH Medical History (Updated 08/08/24 @ 14:[address] Leonidas Traore MD) Carotid artery disease Urinary frequency History of TIA (transient ischemic attack) Nausea Chronic left hip pain Left shoulder pain Anxiety Smoker ICD (implantable cardioverter-defibril lator) in place Myocardial infarct Health care maintenance Colon cancer screening Flu vaccine need Patient noncompliance Tobacco abuse Anxiety and depression Left hand pain History of fracture of clavicle Fracture Depression Chronic pain COPD (chronic obstructive pulmonary disease) Osteoporosis Pre-op chest exam Hyperlipidemia Atherosclerotic heart disease of robinson coronary artery without angina pectoris ST elevation myocardial infarction (STEMI) Hypertension Surgical History History of tonsillectomy History of oophorectomy History of hysterectomy History of shoulder surgery Stented coronary artery (01/10/19) Family History Father , 52 Myocardial infarction Heart disease Hyperlipemia Brother Myocardial infarction CAD (coronary artery disease) CABG and stents Mother Arthritis Depression Osteoporosis Seizures Son Suicide Depression Other Cancer Social History housing: house Smoking Status: Current every day smoker tobacco type: cigarettes Tobacco: How many years used: 50 alcohol intake: current alcohol intake frequency: holidays/special occasions only Alcohol type: wine substance use type: marijuana caffeine: Yes Type: coffee Number of servings: 3 what type of physical activity do you participate in: none HPI HPI Chief Complaint: FU Chronic Conditions Details: GIOVANNI LOMAX, is a 69 F who presents to the office today for follow-up. Also has some concerns. She reports increased urinary frequency which has been worsening over the last couple of months. Had a brief period of burning at the end of urination however, this improved after she started an [id number] cranberry supplement. No further concerns with burning but frequency and occasional incontinence has persisted. History of COPD, last (more content not included)... Normal [facility] Ketones Test strip Ql (U)Ord ered By: Leonidas Traore on 08-08-2024 Ketones Ql (U) Negative Negative [facility] Laboratory - Chemistry and C hemistry - challengeOrdered By: Leonidas Traore on 08-08-2024 AST [Catalytic activity/Vol] 15 U/L 15-37 [facility] Lipid Profileon 08-08-2024 Cholesterol [Mass/Vol] 248 mg/dL High 200 [facility] Comment on above: Result Comment: <200 mg/dL Desirable 200-240 mg/dL Borderline >240 mg/dL High Risk Performed By: #### L 500.4100, L500.4050 #### [facility] [address] [place], [address] Cholesterol in HDL [Mass/Vol] 53 mg/dL Normal [facility] Comment on above: Result Comment: The drugs N-Acetylcysteine and Metamizole may falsely depress this assay. Reference Range HDL <40 mg/dL Low HDL Cholesterol HDL >or= 60 mg/dL High HDL Cholesterol Performed By: #### L 500.4100, L500.4050 #### [facility] [address] [place], [address] Cholesterol in LDL [Mass/Vol] 162 mg/dL High 0-130 [facility] Comment on above: Performed By: #### L 500.4100, L500.4050 #### [facility] [address] [place], [address] Cholesterol in VLDL [Mass/Vol] 33 mg/dL Normal 5-40 [facility] Comment on above: Performed By: #### L 500.4100, L500.4050 #### [facility] [address] [place], [address] Triglyceride [Mass/Vol] 166 mg/dL Normal [facility] Comment on above: Result Comment: The drugs N-Acetylcysteine and Metamizole may falsely depress this assay. Serum Triglycerides Reference Interval Normal <150 mg/dL Borderline high 150 - 199 mg/dL High 200 - 499 mg/dL Very High > or = 500 mg/dL Performed By: #### L 500.4100, L500.4050 #### [facility] [address] [place], [address] Low density lipoprotein (LDL ) cholesterol measurementOrdered By: Leonidas Traore on 08-08-2024 Cholesterol in LDL [Mass/Vol] 162 mg/dL High 0-130 [facility] Microscopic analysis of urin e for red blood cells (RBC)Ordered By: Leonidas Traore on 08-08-2024 Urine RBC 0-5 SEEN /hpf 0-5 [facility] Mucus LM Ql (Urine sed)Order ed By: Leonidas Traore on 08-08-2024 Mucus Ql (Urine sed) 0 SEEN /hpf [facility] Nitrite Test strip Ql (U)Ord ered By: Leonidas Traore on 08-08-2024 Nitrite Ql (U) Negative Negative [facility] Potassium measurementOrdered By: Leonidas Traore on 08-08-2024 Potassium [Moles/Vol] 4.4 mmol/L 3.5-5.1 [facility] Protein Test strip Ql (U)Ord ered By: Leonidas Traore on 08-08-2024 Protein Ql (U) 15 mg/dl High Negative [facility] Serum anion gap measurementO rdered By: Leonidas Traore on 08-08-2024 Anion gap [Moles/Vol] 7 mmol/L 5-15 [facility] Serum globulin measurementOr dered By: Leonidas Traore on 08-08-2024 Globulin (S) [Mass/Vol] 4.1 g/dL 2.2-4.2 [facility] Serum or plasma alanine fletcher otransferase (ALT) measurementOrdered By: Leonidas Traore on 08-08-2024 ALT [Catalytic activity/Vol] 26 U/L 13-56 [facility] Serum or plasma albumin za urement (mass/volume)Ordered By: Leonidas Traore on 08-08-2024 Albumin [Mass/Vol] 3.6 g/dL 3.2-5.0 [facility] Serum or plasma alkaline ori sphatase measurementOrdered By: Leonidas Traore on 08-08-2024 ALP [Catalytic activity/Vol] 70 U/L 45-117 [facility] Serum or plasma calcium za urement (mass/volume)Ordered By: Leonidas Traore on 08-08-2024 Calcium [Mass/Vol] 9.4 mg/dL 8.5-10.1 [facility] Serum or plasma cholesterol measurement (mass/volume)Ordered By: Leonidas Traore on 08-08-2024 Cholesterol [Mass/Vol] 248 mg/dL High <200 [facility] Comment on above: <200 mg/dL Desirable 200-240 mg/dL Borderline >240 mg/dL High Risk Serum or plasma creatinine m easurement (mass/volume)Ordered By: Leonidas Traore on 08-08-2024 Creatinine [Mass/Vol] 0.74 mg/dL 0.55-1.02 [facility] Comment on above: The validity of the calculated GFR & GFRAA in patients over 70 years has not been determined. Clinical correlation is essential. Serum or plasma urea nitroge n measurement (mass/volume)Ordered By: Leonidas Traore on 08-08-2024 Urea nitrogen [Mass/Vol] 20 mg/dL High 7-18 [facility] Sodium levelOrdered By: Rosina Traore on 08-08-2024 Sodium [Moles/Vol] 139 mmol/L 136-145 [facility] Total proteinOrdered By: Uziel Traore on 08-08-2024 Protein [Mass/Vol] 7.7 g/dL 6.4-8.2 [facility] Transitional cells LM Ql (Ur ine sed)Ordered By: Leonidas Traore on 08-08-2024 Urine Transitional Epithelial Cells 0-5 SEEN /hpf 0-5 [facility] Triglycerides measurementOrd ered By: Leonidas Traore on 08-08-2024 Triglyceride [Mass/Vol] 166 mg/dL <199 [facility] Comment on above: The drugs N-Acetylcy steine and Metamizole may falsely depress this assay.Serum Triglycerides Reference Interval Normal <150 mg/dL Borderline high 150 - 199 mg/dL High 200 - 499 mg/dL Very High > or = 500 mg/dL Urinalysis, Completeon 08-08 BACTERIA RARE Normal None Seen [facility] Comment on above: Order Comment: COLLE CTOR TO SPECIFY Performed By: #### L 400.0001 #### [facility] [address] [place], [address] EPI,SQUAMOUS 5-10 SEEN Normal 5-10 [facility] Comment on above: Order Comment: LEONELA CTOR TO SPECIFY Performed By: #### L 400.0001 #### [facility] [address] [place], [address] EPI,TRANSITION 0-5 SEEN Normal 0-5 [facility] Comment on above: Order Comment: LEONELA CTOR TO SPECIFY Performed By: #### L 400.0001 #### [facility] [address] [place], [address] RBC 0-5 SEEN Normal 0-5 [facility] Comment on above: Order Comment: LEONELA CTOR TO SPECIFY Performed By: #### L 400.0001 #### [facility] [address] [place], [address] WBC 0-5 SEEN Normal 0-5 [facility] Comment on above: Order Comment: LEONELA CTOR TO SPECIFY Performed By: #### L 400.0001 #### [facility] [address] [place], [address] Mucus Ql (Urine sed) [address] [facility] Comment on above: Order Comment: LEONELA CTOR TO SPECIFY Performed By: #### L 400.0001 #### [facility] [address] [place], [address] Urine blood detectionOrdered By: Leonidas Traore on 08-08-2024 Urine Occult Blood 10 /ul High Negative [facility] Urine clarityOrdered By: Uziel Traore on 08-08-2024 Clarity (U) Clear Clear [facility] Urine color determinationOrd ered By: Leonidas Traore on 08-08-2024 Color (U) Yellow Yellow [facility] Urine cultureOrdered By: Uziel Traore on 08-08-2024 Bacteria identified Cx Nom (U) Culture exhibits no growth. [facility] Urine leukocyte esterase det ection by dipstickOrdered By: Leonidas Traore on 08-08-2024 Leukocyte esterase Test strip Ql (U) 25 /ul High Negative [facility] Urine pHOrdered By: Edith Traore on 08-08-2024 pH (U) 6.0 [pH] 5.0 - 8.0 [facility] Urine specific gravity measu rementOrdered By: Leonidas Malinlastmakeda on 08-08-2024 Specific gravity (U) [Rel density] 1.015 1.002-1.030 [facility] Urobilinogen Ql (U)Ordered B y: Leonidas Malinlastmakeda on 08-08-2024 Urine Urobilinogen Normal mg/dl Normal [facility] Very low density lipoprotein (VLDL) cholesterol measurementOrdered By: Leonidas Traore on 08-08-2024 VLDL Cholesterol 33 mg/dL 5-40 [facility] White blood cell countOrdere d By: Leonidas Traore on 08-08-2024 Urine WBC 0-5 SEEN /hpf 0-5 [facility] CNOVon 06-05-2024 CNOV Office Visit (UCWSTR ) GIOVANNI LOMAX ([id number]) 1955 F Date Time Provider Department 06/05/24 1:45 PM ROXANA GARCIA [facility] During your visit today, we recorded the following information about you: Temperature Pulse Respiration Blood pressure 98.2 degrees 100/minute 18/minute 126/80 Weight 77.8 kg Roxana Garcia PA 06/05/2024 2:26 PM Signed This note was created using NoteWriter. Subjective Giovanni Lomax is a 69 year old female. HPI 69-year-old female with PMH of COPD presents for cough, chest congestion, shortness of breath. Patient states that she has had a cough for the past 2 weeks. She is coughing up some phlegm. She does have history of COPD and is a smoker. She states she always has a little cough, but her cough is worse. She states she feels a little more short of breath than normal. She does have a nebulizer at home, but does not have any solution for it. She does have inhalers that she has been using. She denies any chest pain. No fevers. No nasal congestion. She has had a headache on and off as well. No sick contacts that she is aware of. No other complaint. PAST MEDICAL HISTORY Diagnosis Date Essential hypertension, benign 1973 diagnosed age 19 Other and unspecified hyperlipidemia Other chest pain Jun 2005 non-cardiac CP, stress test normal Other forms of migraine Restless legs syndrome (RLS) 2005 Senile osteoporosis 2006 Tobacco use disorder PAST SURGICAL HISTORY Procedure Laterality Date EGD TRANSORAL BIOPSY SINGLE/MULTIPLE 12/28/2007 gastritis OOPHORECTOMY PARTIAL/TOTAL UNI/BI Oophorectomy - bilateral, due to recurrent cysts VAGINAL HYSTERECTOMY UTERUS 250 GM/< 1981 menorrhagia - no cancer ALLERGIES Patient has no known allergies. MEDICATIONS carbamide peroxide (DEBROX) 6.5 % otic solution Use 5 Drops in both ears twice daily. lisinopril (ZESTRIL, PRINIVIL) 5 mg tablet Take 5 mg by mouth. ticagrelor (BRILINTA) 90 mg tablet Take by mouth. losartan (COZAAR) 50 mg tablet Take 50 mg by mouth once daily. pravastatin 80 mg tablet Take 1 tablet by mouth once daily. aspirin 81 mg chewable tablet Take 1 tablet by mouth once daily. doxycycline monohydrate 100 mg tablet Take 1 tablet by mouth two times a day for 7 days. albuterol (PROVENTIL) 2.5 mg /3 mL (0.083 %) nebulizer solution Use 3 mL via nebulizer every 4 hours as needed for wheezing/shortness of breath. Use over 5-15minutes. carvedilol (COREG) 3.125 mg tablet Take 1 tablet by mouth twice daily. FAMILY HISTORY Problem Relation Age of Onset Alcohol/Drug Mother Heart Father 52 of [place], developed CAD age early 40's Alcohol/Drug Father Coronary Artery Disease Father Hypertension Father Heart Brother CABG age 46, stents and MN's placed since Cancer Maternal Aunt pancreatic Coronary Artery Disease Brother Hypertension Brother Social History Tobacco Use Smoking status: Every Day Current packs/day: 0.00 Average packs/day: 0.5 packs/day for 35.0 years (17.5 ttl pk-yrs) Types: Cigarettes Start date: 11/08/1974 Last attempt to quit: 11/08/2009 Years since quittin.5 Smokeless tobacco: Never Tobacco comments: tried wellbutrin, didn't tolerate patch, would consider Chantix but insurance doesn't cover Substance Use Topics Alcohol use: No Drug use: Yes Types: Marijuana Comment: caffeine Review of Systems Constitutional: Negative for chills and fever. HENT: Negative for congestion, ear pain and sore throat. Respiratory: Positive for cough, shortness of breath and wheezing. Cardiovascular: Negative for chest pain. Gastrointestinal: Negative for diarrhea and vomiting. Neurological: Positive for headaches. Objective BP 126/80 Pulse 100 Temp 36.8 ?C (98.2 ?F) Resp 18 Wt 77.8 kg (171 lb 8.3 oz) SpO2 94% BMI 28.54 kg/m? Physical Exam Vitals and nursing note reviewed. Constitutional: General: She is not in acute distress. Appearance: Normal appearance. She is not toxic-appearing. HENT: Right Ear: Tympanic membrane and ear canal normal. Left Ear: Tympanic membrane normal. Nose: Nose normal. Mouth/Throat: Mouth: Mucous membranes are moist. Eyes: Conjunctiva/sclera: Conjunctivae normal. Cardiovascular: Rate and Rhythm: Normal rate and regular rhythm. Pulmonary: Effort: Pulmonary effort is normal. Breath sounds: Wheezing (Mild expiratory wheeze right lung) present. No rhonchi or rales. Skin: General: Skin is warm and dry. Neurological: Mental Status: She is alert. Assessment and Plan ASSESSMENT/PLAN: 1. Acute cough - ICD9: 786.2, ICD10: R05.1 (primary diagnosis) - XR CHEST 2V FRONTAL/LAT-no acute radiographic abnormality. -Treat for COPD exacerbation -Rx doxycycline -Albuterol nebulizer solution per patient request. She has nebulizer at home. -Discussed prednisone, but patient states she does not really alden (more content not included)... Normal [facility] XR CHEST 2V FRONTAL/LATon XR CHEST 2V FRONTAL/LAT * * *Final Repor t* * * DATE OF EXAM: Jun 05 2024 2:15PM WOX [id number] - XR CHEST 2V FRONTAL/LAT / PROCEDURE REASON: multiple diagnoses * * * * Physician Interpretation * * * * EXAMINATION: CHEST RADIOGRAPH (2 VIEW FRONTAL and LATERAL) CLINICAL HISTORY: Acute cough COPD with exacerbation (HCC) MQ: XC2_6 EXAM DATE/TIME: 06/05/2024 2:15 PM COMPARISON: Chest x-ray on 04/10/2009 RESULT: Lines, tubes, and devices: None. Lungs and pleura: No consolidation. No lung mass. No pleural effusion. No pneumothorax. Cardiomediastinal silhouette: Normal cardiomediastinal silhouette. Bones and soft tissues: There are postoperative changes in the proximal left humerus. The spine shows degenerative changes. IMPRESSION: No acute radiographic abnormality. Invasive Cardiovascular Technologist: MARYAM Transcribe Date/Time: Jun 05 2024 2:18P Dictated by : MICHAEL BROWN MD This examination was interpreted and the report reviewed and electronically signed by: MICHAEL BROWN MD on Jun 05 2024 2:19PM EST [id number] Normal [facility] XR Chest PA and Lateralon IMPRESSION: No acute radiographic abnormality. Invasive Cardiovascular Technologist: [facility] Transcribe Date/Time: Jun 05 2024 2:18P Dictated by : MICHAEL BROWN MD This examination was interpreted and the report reviewed and electronically signed by: MICHAEL BROWN MD on Jun 05 2024 2:19PM EST DIVISION OF RADIOLOGY * * *Final Report* * * DATE OF EXAM: Jun 05 2024 2:15PM WOX [id number] - XR CHEST 2V FRONTAL/LAT / PROCEDURE REASON: multiple diagnoses * * * * Physician Interpretation * * * * EXAMINATION: CHEST RADIOGRAPH (2 VIEW FRONTAL & LATERAL) CLINICAL HISTORY: Acute cough COPD with exacerbation (HCC) MQ: XC2_6 EXAM DATE/TIME: 06/05/2024 2:15 PM COMPARISON: Chest x-ray on 04/10/2009 RESULT: Lines, tubes, and devices: None. Lungs and pleura: No consolidation. No lung mass. No pleural effusion. No pneumothorax. Cardiomediastinal silhouette: Normal cardiomediastinal silhouette. Bones and soft tissues: There are postoperative changes in the proximal left humerus. The spine shows degenerative changes. DIVISION OF RADIOLOGY Provider, Kelley Granados caleb Casmalia - 06/05/2024 * * *Final Report* * * DATE OF EXAM: Jun 05 2024 2:15PM WOX [id number] - XR CHEST 2V FRONTAL/LAT / PROCEDURE REASON: multiple diagnoses * * * * Physician Interpretation * * * * EXAMINATION: CHEST RADIOGRAPH (2 VIEW FRONTAL & LATERAL) CLINICAL HISTORY: Acute cough COPD with exacerbation (HCC) MQ: XC2_6 EXAM DATE/TIME: 06/05/2024 2:15 PM COMPARISON: Chest x-ray on 04/10/2009 RESULT: Lines, tubes, and devices: None. Lungs and pleura: No consolidation. No lung mass. No pleural effusion. No pneumothorax. Cardiomediastinal silhouette: Normal cardiomediastinal silhouette. Bones and soft tissues: There are postoperative changes in the proximal left humerus. The spine shows degenerative changes. IMPRESSION IMPRESSION: No acute radiographic abnormality. Invasive Cardiovascular Technologist: MARYAM Transcribe Date/Time: Jun 05 2024 2:18P Dictated by : MICHAEL BROWN MD This examination was interpreted and the report reviewed and electronically signed by: MICHAEL BROWN MD on Jun 05 2024 2:19PM EST [facility] Radiology Study observation (narrative) Megan sr [facility] XR Chest PA and LateralOrder ed By: Cc Provider on 06-05-2024 [facility] Office Visiton 12-20-2023 Follow-up visit [id number] Giovanni Lomax 1955 F Date Provider Department Center 12/20/2023 [id number] [facility] Family History Problem Relation Age of Onset Heart disease Father Heart disease Brother Family Status - Relation Status Age at Father Brother Alive Mother Level of Service:45017 CT OFFICE/OUTPATIENT NEW LOW MDM 30 MINUTES Reason for Visit and Comments: Hip Pain [148441] - Left Arm Pain [482456] - Left Normal [facility] Progress Noteon 12-20-2023 Progress Note [facility] [address] [place] [address] Dept: [phone] Dept Chief Complaint Patient presents with Hip Pain Left Arm Pain Left Subjective History of Present Illness: Giovanni Lomax is a 68 y.o. female who presents today for evaluation of left hip pain. Left hip pain. Location: lateral and anterior Onset: 3 months Injury: no Quality: aching Mechanical symptoms: no Radiation of symptoms: no Severity: 6/10 at rest and 8/10 at worst Exacerbating factor(s): walking, prolonged standing, rising from a seated position, climbing/descending stairs, getting in/out of a car, and first steps out of bed Relieving factor(s): rest. Timing: all day Left arm pain. Location: Superior, lateral, surgical site. Onset: 11/2019. Injury: yes - Pt fell and needed SX in 11/2019. Closed fracture of proximal end of left humerus, 2019 Dr. Bishop. Work related? no Quality: aching, sharp, stabbing, and burning. Mechanical symptoms: no Radiation of symptoms: no Severity: 0/10 at rest and 8/10 at worst Exacerbating factor(s): Flexion, extension, reaching. Relieving factor(s): Rest. Timing: intermittently Imaging to date: X-ray December 2023 Mild degenerative changes some irregularities in the femoral head, with relatively maintained joint space. Treatment to date: PT/OT/HEP: yes, formal physical therapy for after arm SX, 2019 . Helpful Ice: no Heat: no Medications: Tylenol: no NSAIDs: yes, Ibuprofen/Motrin/Advi l, helpful Oral steroids: no Muscle relaxants: no Nerve medications: no Targeted injections: none Assistive devices: none Prior surgery: Closed fracture of proximal end of left humerus, 2019 Dr. Bishop. Occupation: Retired, Fall risk assessment: Have you had 2 or more falls in the last year? No Have you had a fall with injury in the last year? No Do you feel unsteady or worried about falling? Yes Objective Visit Vitals BP (!) 142/86 Physical Exam: General: Alert, well appearing, no acute distress. Respiratory: Breathing comfortably on room air. No respiratory distress. Skin: Warm, dry, intact. No visible rashes or erythema overlying area of focused exam. Physical Exam Musculoskeletal: Left hip: No deformity. Decreased range of motion (External range of motion 30 degrees internal range of motion 0 with pain at terminal motion). Legs: Comments: Positive Timoteo, positive fadir with decreased range of motion. Gluteus medius weakness with pain on testing External Notes No pertinent interval updates Labs No results found for: HGBA1C Lab Results Component Value Date CREATININE 0.57 11/29/2019 Imaging Images reviewed with patient today I have personally reviewed the images pertinent to the appointment today EMG/NCT N/A Procedure No procedures completed today Assessment Diagnosis Plan 1. Left hip pain XR hip left 2 or 3 views 2. Primary osteoarthritis of left hip Plan We discussed osteoarthritis of the femoral acetabular joint. We reviewed the spectrum of 1. Pills - everything from Tylenol, ibuprofen, Aleve, and pain medicines. Tumeric can be supplemented, it is likely similar to ibuprofen and is generally safe for most people to take. Turmeric is dose-dependent, higher doses being higher anti-inflammatory effect, additionally more of the turmeric will be absorbed when taken with black pepper which is often included in the [id number] supplements. 2. Physical therapy - formal physical therapy. The benefits of strengthening, endurance, flexibility, balancing, and proprioception, the combination of all of these to decrease joint pain. The benefits of physical therapy can also be helpful prior to joint replacement surgery. Bracing is rarely effective for hip arthritis. 3. Shots - corticosteroid and investigational injections. We discussed the episodic nature, and Band-Aid nature of cortisone. No more frequent than every 3-4 months, the potential for cortisone to soften articular cartilage with repetitive use. And the use as a bridge agent. Due to the proximity of the hip joint near vital structures these injections need to be provided either under ultrasound or x-ray guidance. 4. Surgery - total joint replacement. We discussed the need to progress through conservative measures before this is a viable option. After discussing all of the options and treatment plans for osteoarthritis of the hip we will proceed at this time with ultrasound-guided left femoral acetabular corticosteroid therapeutic and diagnostic injection. No follow-ups on file. Joanne Neal MD 12/20/2023 2:13 PM Please note that portions of this note may have been completed with voice recognition software. Documentation reviewed prior to signing but minor errors in museum informatics specialist may have occurred. Normal [facility] XR Hip - left 3 Viewson 06- No fracture or dislocation of the pelvis or left hip. Mild osteoarthritis of the bilateral hips. Report Dictated on Electronically Signed By: Dae Joshi MD Electronically Signed Date/Time: 12/20/2023 7:18 PM EDT [facility] Patient Name: GIOVANNI LOMAX : 1955 Exam Date/Time: 12/20/2023 16:04 Procedure: XR HIP 2 OR 3 VW LEFT Ordering Provider: NEAL ROBERT Reason For Exam: PAIN LEFT HIP CLINICAL INDICATION: Left hip pain A single AP view of the pelvis followed by AP and lateral views of the left hip were obtained. COMPARISON: None FINDINGS: No fracture or dislocation of the pelvis or left hip is identified. The left hip joint space is relatively well-preserved. Mild acetabular spurring is noted bilaterally. The sacroiliac joints appear grossly unremarkable. No lytic or blastic bony lesions are seen. [facility] Dae Joshi MD - 12/20/2023 Patient Name: GIOVANNI LOMAX : 1955 Exam Date/Time: 12/20/2023 16:04 Procedure: XR HIP 2 OR 3 VW LEFT Ordering Provider: NEAL ROBERT Reason For Exam: PAIN LEFT HIP CLINICAL INDICATION: Left hip pain A single AP view of the pelvis followed by AP and lateral views of the left hip were obtained. COMPARISON: None FINDINGS: No fracture or dislocation of the pelvis or left hip is identified. The left hip joint space is relatively well-preserved. Mild acetabular spurring is noted bilaterally. The sacroiliac joints appear grossly unremarkable. No lytic or blastic bony lesions are seen. IMPRESSION: No fracture or dislocation of the pelvis or left hip. Mild osteoarthritis of the bilateral hips. Report Dictated on Electronically Signed By: Dae Joshi MD Electronically Signed Date/Time: 12/20/2023 7:18 PM EDT [facility] Radiology Study observation (narrative) [facility] XR Hip - left 3 ViewsOrdered By: Dae Joshi on 12-20-2023 [facility] Internal Medicine Office Vis iton 12-12-2023 Internal Medicine Office Visit [facility] [address] [place] [address] OFFICE VISIT Date of Service: 12/12/23 MR#: [id number] Acct: [id number] Name: GIOVANNI LOMAX Rep #: [id number] : 1955 Provider: Dr. 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 Is patient in pain?: No Allergies No Known Allergies Allergy (Verified 12/12/23 13:57) Medications ???Medication ???Instructions ???Recorded ???Confirmed ???Type clopidogrel 75 mg tablet (Plavix) 75 mg PO DAILY antiplatelet #90 04/29/23 12/12/23 Rx tabs hydrochlorothiazide 25 mg tablet 25 mg PO DAILY BP #90 tabs 04/29/23 12/12/23 Rx losartan 100 mg tablet 100 mg PO DAILY dose increase (BP) 04/29/23 12/12/23 Rx #90 tabs metoprolol tartrate 25 mg tablet 25 mg PO BID BP #180 tabs 04/29/23 12/12/23 Rx nitroglycerin 0.4 mg sublingual 0.4 mg sublingual Q5M PRN Chest 04/29/23 12/12/23 Rx tablet Pain #25 tabs amlodipine 10 mg tablet 10 mg PO DAILY BP #90 tabs 05/30/23 12/12/23 Rx albuterol sulfate 90 mcg/actuation 1 - 2 puff inhalation Q6H PRN PRN 08/08/23 12/12/23 Rx aerosol inhaler Sob /Or Wheezing #8.5 grams albuterol sulfate 90 mcg/actuation 2 inh inhalation Q6H PRN shortness 11/10/23 12/12/23 History aerosol inhaler (ProAir HFA) of breath or wheezing aspirin 81 mg tablet,delayed 81 mg PO DAILY@0800 90 days #90 11/11/23 12/12/23 Rx release tabs atorvastatin 80 mg tablet 80 mg PO QHS 90 days #90 tabs 11/11/23 12/12/23 Rx pramipexole 1.5 mg tablet 1.5 mg PO QHS #90 tabs 12/07/23 12/12/23 Rx denosumab 60 mg/mL subcutaneous 60 mg subcut [id number] #1 mL 12/12/23 12/12/23 Rx syringe (Prolia) pantoprazole 40 mg tablet,delayed 40 mg PO DAILY #90 tabs 12/12/23 12/12/23 Rx release PFSH Medical History (Updated 12/12/23 @ 17:[address] Leonidas Traore MD) History of TIA (transient ischemic attack) Nausea Chronic left hip pain Left shoulder pain Carotid artery disease Anxiety Smoker ICD (implantable cardioverter-defibril lator) in place Myocardial infarct Health care maintenance Colon cancer screening Flu vaccine need Patient noncompliance Tobacco abuse Anxiety and depression Left hand pain History of fracture of clavicle Fracture Depression Chronic pain COPD (chronic obstructive pulmonary disease) Osteoporosis Pre-op chest exam Hyperlipidemia Atherosclerotic heart disease of robinson coronary artery without angina pectoris ST elevation myocardial infarction (STEMI) Hypertension Surgical History History of tonsillectomy History of oophorectomy History of hysterectomy History of shoulder surgery Stented coronary artery (01/10/19) Family History Father , 52 Myocardial infarction Heart disease Hyperlipemia Brother Myocardial infarction CAD (coronary artery disease) CABG and stents Mother Arthritis Depression Osteoporosis Seizures Son Suicide Depression Other Cancer Social History housing: house Smoking Status: Current every day smoker tobacco type: cigarettes Tobacco: How many years used: 50 alcohol intake: current alcohol intake frequency: holidays/special occasions only Alcohol type: wine substance use type: marijuana caffeine: Yes Type: coffee Number of servings: 3 what type of physical activity do you participate in: none HPI HPI Chief Complaint: FU Chronic Conditions Details: GIOVANNI LOMAX, is a 68 F who presents to the office today for follow-up of her chronic medical conditions. Also has some concerns. She reports a chronic history of nausea. Has been present for many years but has had intermittent worsening over recent months. No known precipitating factor. Chronic history of gastritis/H. pylori infection status post EGD a few years ago. Currently not on a PPI. No dark or bloody stool or unintentional weight changes. Recent bone density scan done suggestive of osteoporosis. Concern for reflux as above. No recent fracture. Has made some lifestyle modifications to avoid injury/fracture. Recent hospital admission where she presented with left arm weakness and language deficit. Symptoms had resolved subsequently. Seen in con (more content not included)... Normal [facility] Dexa Bone Density Studyon Dexa Bone Density Study [facility] Imaging Services [address] [place] [address] [id number] Dexa Bone Density Study MR#: [id number] Acct: [id number] Name: GIOVANNI LOMAX Rep #: [id number] : 1955 F 68 From: Quan Kapadia MD PCP: Dr. Leonidas Traore MD Status: [facility] Study: Dexa Bone Density Study Date of Exam: 11/22/23 Exam# [id number] Ordering Dr: Leonidas Traroe MD [id number] STUDY: DUAL ENERGY X-RAY ABSORPTIOMETRY / DXA REASON FOR EXAM: Female, 68 years old. Post menopausal TECHNIQUE: Bone Mineral Density (BMD) measurements of lumbar spine and bilateral hips were obtained. COMPARISON: None. FINDINGS: Lumbar Spine (L1-L4): g/cm2 (0.645) / T-score (-4.1) / Z-score (-2.2) Findings are suggestive of osteoporosis with a high fracture risk. Left Femur Total: g/cm2 (0.738) / T-score (-1.7) / Z-score (-0.3) Left Femoral Neck: 0.525 g/cm2) / T-score (-2.9) / Z-score (-1.3) BD/Dexa Bone Density Study IMPRESSION: The patient is considered osteoporotic as outlined below according to World Tu Organization (WHO) criteria with a high fracture risk. No prior study available for comparison Reference Information: The T-score is the number of standard deviations above or below the standard which is normal for young adults at their peak bone mineral density. The World Health Organization (WHO) interprets the T-scores as follows: Above -1 Normal bone density Between -1 and -2.5 Osteopenia Equal to / or below -2.5 Osteoporosis As a practical clinical guideline, osteopenia may be graded as follows: Mild -1 through -1.5 Moderate -1.6 through -2.0 Severe -2.1 through -2.4 The Z-score is the number of standard deviations above or below age-matched controls. A Z-score of less than -1.5 would be considered abnormal. References: 1. NIH Osteoporosis and Related Bone Diseases www osteo.org 2. International Society for Clinical Densitometry www iscd.org 3. National Osteoporosis Foundation www nof.org Electronically Signed: Quan Kapadia MD at 22:37 EDT , CC: Dr. Leonidas Traore MD Invasive Cardiovascular Technologist: Signed Normal [facility] SCRN MAMM (CAD)W/VERENICE rivas 11-22-2023 SCRN MAMM (CAD)W/[facility] Imaging Services [address] [place] [id number] SCRN MAMM (CAD)W/VERENICE BILAT MR#: [id number] Acct: [id number] Name: GIOVANNI LOMAX Rep #: [id number] : 1955 F 68 From: Marty salinas MD PCP: Dr. Leonidas Traore MD Status: [facility] Study: SCRN MAMM (CAD)W/VERENICE BILAT Date of Exam: 11/08 11/01 Exam# [id number] Ordering Dr: Leonidas Traore MD [id number] MAMMOGRAPHY - BILATERAL SCREENING REASON FOR EXAM: Female, 68 years old. Routine annual screening examination. PERTINENT HISTORY: Non-contributory. TECHNIQUE: Digital bilateral breast verenice (3D mammographic acquisition) in the CC and MLO projections. 2-D mediolateral oblique (MLO) and craniocaudad (CC) views of both breasts were obtained. CAD: Full Field Digital Mammography with Computer Added Detection was performed. COMPARISON: Comparison is made prior outside examination dated May 11, 2006. FINDINGS: Breast Composition: The breasts are almost entirely fatty. There are no dominant masses or suspicious calcifications. No other significant abnormalities are identified. There has been no significant change since the prior study. BI/SCRN MAMM (CAD)W/VERENICE BILAT IMPRESSION: Stable bilateral screening mammogram. Yearly follow-up mammogram recommended. (A) ASSESSMENT CATEGORY: BIRADS Category 1: Negative. A letter regarding these results will be sent to the patient by the facility within 30 days. Approximately 10% of breast cancers are not detected by mammography. A normal mammogram should not delay biopsy of a clinically suspicious abnormality. [id number] Electronically Signed: Marty Mari MD at 8:25 EDT , CC: Dr. Leonidas Traore MD Invasive Cardiovascular Technologist: Signed Normal [facility] Absolute lymphocyte countOrd ered By: Rafael Arreaga on 11-11-2023 Lymphocytes Auto (Unsp spec) [#/Vol] 2.94 10*3/uL 0.83-4.51 [facility] Automated lymphocyte count a s percentage of total leukocytesOrdered By: Rafael Arraega on 11-11-2023 Lymphocytes/100 WBC Auto (Unsp spec) 36.8 % 19-41 [facility] Basophil percentageOrdered B y: Rafael Arreaga on 11-11-2023 Basophils/100 WBC (Bld) 1.0 % 0-1 [facility] Cholesterol [Mass/Vol] 200 mg/dL <200 [facility] Comment on above: <200 mg/dL Desirable 200-240 mg/dL Borderline >240 mg/dL High Risk Eosinophils/100 WBC (Bld) 4.3 % 0-5 [facility] Hemoglobin (Bld) [Mass/Vol] 13.1 g/dL 12.0-15.0 [facility] Monocytes/100 WBC (Bld) 8.0 % 0-10 [facility] Neutrophils (Bld) [#/Vol] 4.0 10*3/uL 2.0-7.7 [facility] Neutrophils/100 WBC (Bld) 49.6 % 47-70 [facility] Triglyceride [Mass/Vol] 93 mg/dL <199 [facility] Comment on above: The drugs N-Acetylcy steine and Metamizole may falsely depress this assay.Serum Triglycerides Reference Interval Normal <150 mg/dL Borderline high 150 - 199 mg/dL High 200 - 499 mg/dL Very High > or = 500 mg/dL WBC (Bld) [#/Vol] 8.0 10*3/uL 4.4-11.0 [facility] Determination of erythrocyte mean corpuscular volume (MCV)Ordered By: Rafael Arreaga on 05-03-2024 MCV (RBC) [Entitic vol] 90.7 fL 81-99 [facility] Erythrocyte distribution wid th ratioOrdered By: Rafael Arreaga on 11-11-2023 Erythrocyte distribution width (RBC) [Ratio] 13.6 % 11.6-14.6 [facility] Erythrocyte distribution wid th standard deviationOrdered By: Rafael Arreaga on 11-11-2023 Erythrocyte distribution width (RBC) [Entitic vol] 45.4 fL 35.1-43.9 [facility] Hematocrit Auto (Bld) [Volum e fraction]Ordered By: Rafael Arreaga on 11-11-2023 Hematocrit (Bld) [Volume fraction] 41.2 % 37-47 [facility] Immature granulocytes/100 WB C Auto (Bld)Ordered By: Rafael Arreaga on 11-11-2023 Immature granulocytes/100 WBC (Bld) 0.300 % 0.0-0.9 [facility] Comment on above: IG% - Immature Granu locytes (promyelocytes, myelocytes and metamyelocytes) > 1% indicates that a LEFT SHIFT is Present. Laboratory - Chemistry and C hemistry - challengeOrdered By: Rafael Arreaga on 11-11-2023 Cholesterol in HDL [Mass/Vol] 42 mg/dL >40 [facility] Comment on above: The drugs N-Acetylcy steine and Metamizole may falsely depress this assay. Reference Range HDL <40 mg/dL Low HDL Cholesterol HDL >or= 60 mg/dL High HDL Cholesterol Cholesterol in LDL [Mass/Vol] 139 mg/dL 0-130 [facility] Laboratory - Hematology and Cell countsOrdered By: Rafael Arreaga on 11-11-2023 MCH (RBC) [Entitic mass] 28.9 pg 27.0-32.0 [facility] MCHC (RBC) [Mass/Vol] 31.8 g/dL 32-36 [facility] Nucleated RBC/100 WBC (Bld) [Ratio] 0 % 0-5 [facility] Platelet mean volume (Bld) [Entitic vol] 10.3 fL 6.2-12.0 [facility] Platelets (Bld) [#/Vol] 321 10*3/uL 150-450 [facility] No Panel InformationOrdered By: Rafael Arreaga on 11-11-2023 VLDL Cholesterol 19 mg/dL 5-40 [facility] RBC Auto (Bld) [#/Vol]Ordere d By: Rafael Arreaga on 11-11-2023 RBC (Bld) [#/Vol] 4.54 10*6/uL 4.2-5.4 [facility] Serum or plasma thyroid stim ulating hormone (TSH) measurement (units/volume)Ordered By: Rafael Arreaga on 11-11-2023 TSH Qn 0.85 uIU/mL 0.358-3.74 [facility] Thin prep Papanicolaou smear with manual screeningOrdered By: Rafael Arreaga on 11-11-2023 Thin prep Papanicolaou smear with manual screening 97 mg/dL 74-106 [facility] Comment on above: MANAGEMENT OF PATIEN T CARE PER NURSING PROTOCOL Whole blood hemoglobin A1c/t otal hemoglobin ratio (mass fraction)Ordered By: Rafael Arreaga on 11-11-2023 HbA1c (Bld) [Mass fraction] 5.6 % 3.8-5.6 [facility] Comment on above: Normal < 5.7 % Predi abetic 5.7 - 6.4 % Diabetic >or= 6.5 % Please note range changes. Absolute lymphocyte countOrd ered By: Nadja Vizcarra on 11-10-2023 Lymphocytes Auto (Unsp spec) [#/Vol] 3.15 10*3/uL 0.83-4.51 [facility] Activated partial thrombopla stin time (aPTT) in platelet poor plasma by coagulation aOrdered By: Nadja Vizcarra on 11-10-2023 aPTT Coag (PPP) [Time] 27.6 s 24.1-36.2 [facility] Automated lymphocyte count a s percentage of total leukocytesOrdered By: Nadja Vizcarra on 11-10-2023 Lymphocytes/100 WBC Auto (Unsp spec) 32.2 % 19-41 [facility] Basophil percentageOrdered B y: Nadja Vizcarra on 11-10-2023 Basophils/100 WBC (Bld) 0.6 % 0-1 [facility] Chloride [Moles/Vol] 105 mmol/L 98-107 [facility] Eosinophils/100 WBC (Bld) 2.0 % 0-5 [facility] Glucose [Mass/Vol] 111 mg/dL 74-106 [facility] Comment on above: Fasting Glucose resu lt from 100 to 125 mg/dL suggests IMPAIRED HOMEOSTASIS per A.D.A. criteria. Hemoglobin (Bld) [Mass/Vol] 15.3 g/dL 12.0-15.0 [facility] Monocytes/100 WBC (Bld) 5.4 % 0-10 [facility] Neutrophils (Bld) [#/Vol] 5.8 10*3/uL 2.0-7.7 [facility] Neutrophils/100 WBC (Bld) 59.6 % 47-70 [facility] Potassium [Moles/Vol] 4.2 mmol/L 3.5-5.1 [facility] Comment on above: Slight Hemolysis, Re sult may be falsely increased. Sodium [Moles/Vol] 138 mmol/L 136-145 [facility] WBC (Bld) [#/Vol] 9.8 10*3/uL 4.4-11.0 [facility] Determination of erythrocyte mean corpuscular volume (MCV)Ordered By: Nadja Vizcarra on 11-10-2023 MCV (RBC) [Entitic vol] 90.8 fL 81-99 [facility] Erythrocyte distribution wid th ratioOrdered By: Nadja Vizcarra on 11-10-2023 Erythrocyte distribution width (RBC) [Ratio] 13.4 % 11.6-14.6 [facility] Erythrocyte distribution wid th standard deviationOrdered By: Nadja Vizcarra on 11-10-2023 Erythrocyte distribution width (RBC) [Entitic vol] 45.4 fL 35.1-43.9 [facility] Hematocrit Auto (Bld) [Volum e fraction]Ordered By: Nadja Vizcarra on 11-10-2023 Hematocrit (Bld) [Volume fraction] 47.2 % 37-47 [facility] Immature granulocytes/100 WB C Auto (Bld)Ordered By: Nadja Vizcarra on 11-10-2023 Immature granulocytes/100 WBC (Bld) 0.200 % 0.0-0.9 [facility] Comment on above: IG% - Immature Granu locytes (promyelocytes, myelocytes and metamyelocytes) > 1% indicates that a LEFT SHIFT is Present. Laboratory - Chemistry and C hemistry - challengeOrdered By: Nadja Vizcarra on 11-10-2023 CO2 [Moles/Vol] 31.0 mmol/L 21.0-32.0 [facility] Urea nitrogen/Creatinine [Mass ratio] 20.4 mg/mg 10-20 [facility] Laboratory - Chemistry and C hemistry - challengeOrdered By: Rafael Arreaga on 11-10-2023 Magnesium [Mass/Vol] 2.1 mg/dL 1.6-2.6 [facility] Comment on above: Slight Hemolysis, Re sult may be falsely increased. Laboratory - CoagulationOrde red By: Nadja Vizcarra on 11-10-2023 INR Coag (Bld) [Relative time] 1.0 {INR} [facility] PT Coag (PPP) [Time] 13.0 s 11.7-14.9 [facility] Laboratory - Hematology and Cell countsOrdered By: Nadja Vizcarra on 11-10-2023 MCH (RBC) [Entitic mass] 29.4 pg 27.0-32.0 [facility] MCHC (RBC) [Mass/Vol] 32.4 g/dL 32-36 [facility] Nucleated RBC/100 WBC (Bld) [Ratio] 0 % 0-5 [facility] Platelet mean volume (Bld) [Entitic vol] 9.8 fL 6.2-12.0 [facility] Platelets (Bld) [#/Vol] 331 10*3/uL 150-450 [facility] No Panel InformationOrdered By: Nadja Vizcarra on 11-10-2023 Estimated Creatinine Clearance Calc 69.82 ml/min [facility] Estimated GFR (MDRD) Amer 102 mL/min >60 [facility] Comment on above: GFR Calc Estimated GFR (MDRD) Non-Af Amer 84 mL/min >60 [facility] Comment on above: Non- GFR Calc Troponin I High Sensitivity 14 pg/mL 3.0-54.0 [facility] Comment on above: Please Note: [place] t Units and Gender Specific Reference Ranges. For more information see Policy Stat Procedure [place] High Sensitivity Troponin (TNIH) and attachments. RBC Auto (Bld) [#/Vol]Ordere d By: Nadja Vizcarra on 11-10-2023 RBC (Bld) [#/Vol] 5.20 10*6/uL 4.2-5.4 [facility] Serum or plasma calcium za urement (mass/volume)Ordered By: Nadja Vizcarra on 11-10-2023 Calcium [Mass/Vol] 9.4 mg/dL 8.5-10.1 [facility] Serum or plasma creatinine m easurement (mass/volume)Ordered By: Nadja Vizcarra on 11-10-2023 Creatinine [Mass/Vol] 0.74 mg/dL 0.55-1.02 [facility] Comment on above: The validity of the calculated GFR & GFRAA in patients over 70 years has not been determined. Clinical correlation is essential. Serum or plasma urea nitroge n measurement (mass/volume)Ordered By: Nadja Vizcarra on 11-10-2023 Urea nitrogen [Mass/Vol] 15 mg/dL 7-18 [facility] Thin prep Papanicolaou smear with manual screeningOrdered By: Nadja Vizcarra on 11-10-2023 Thin prep Papanicolaou smear with manual screening 2 5-15 [facility] Absolute lymphocyte countOrd ered By: Leonidas Traore on 10-31-2023 Lymphocytes Auto (Unsp spec) [#/Vol] 2.77 10*3/uL 0.83-4.51 [facility] Automated lymphocyte count a s percentage of total leukocytesOrdered By: Leonidas Traore on 10-31-2023 Lymphocytes/100 WBC Auto (Unsp spec) 27.5 % 19-41 [facility] Basophil percentageOrdered B y: Leonidas Traore on 10-31-2023 Basophils/100 WBC (Bld) 0.7 % 0-1 [facility] Bilirubin [Mass/Vol] 0.30 mg/dL 0.20-1.00 [facility] Comment on above: For patients on eltr ombopag therapy, use of Dimension [place] TBIL is not recommended. Chloride [Moles/Vol] 103 mmol/L 98-107 [facility] Cholesterol [Mass/Vol] 232 mg/dL <200 [facility] Comment on above: <200 mg/dL Desirable 200-240 mg/dL Borderline >240 mg/dL High Risk Eosinophils/100 WBC (Bld) 0.8 % 0-5 [facility] Glucose [Mass/Vol] 189 mg/dL 74-106 [facility] Comment on above: Fasting Glucose resu lt greater than or equal to 126 mg/dL suggests DIABETES MELLITUS per A.D.A. criteria. Hemoglobin (Bld) [Mass/Vol] 15.1 g/dL 12.0-15.0 [facility] Monocytes/100 WBC (Bld) 4.5 % 0-10 [facility] Neutrophils (Bld) [#/Vol] 6.7 10*3/uL 2.0-7.7 [facility] Neutrophils/100 WBC (Bld) 66.1 % 47-70 [facility] Potassium [Moles/Vol] 3.6 mmol/L 3.5-5.1 [facility] Protein [Mass/Vol] 7.6 g/dL 6.4-8.2 [facility] Sodium [Moles/Vol] 138 mmol/L 136-145 [facility] Triglyceride [Mass/Vol] 211 mg/dL <199 [facility] Comment on above: The drugs N-Acetylcy steine and Metamizole may falsely depress this assay.Serum Triglycerides Reference Interval Normal <150 mg/dL Borderline high 150 - 199 mg/dL High 200 - 499 mg/dL Very High > or = 500 mg/dL WBC (Bld) [#/Vol] 10.1 10*3/uL 4.4-11.0 [facility] Determination of erythrocyte mean corpuscular volume (MCV)Ordered By: Leonidas Traore on 10-31-2023 MCV (RBC) [Entitic vol] 89.7 fL 81-99 [facility] Erythrocyte distribution wid th ratioOrdered By: Leonidas Traore on 10-31-2023 Erythrocyte distribution width (RBC) [Ratio] 13.7 % 11.6-14.6 [facility] Erythrocyte distribution wid th standard deviationOrdered By: Rosinamarysvilleronel Traore on 10-31-2023 Erythrocyte distribution width (RBC) [Entitic vol] 45.4 fL 35.1-43.9 [facility] Hematocrit Auto (Bld) [Volum e fraction]Ordered By: Leonidas Traore on 10-31-2023 Hematocrit (Bld) [Volume fraction] 46.2 % 37-47 [facility] Immature granulocytes/100 WB C Auto (Bld)Ordered By: [facility] Tra[facility] on 10-31-2023 Immature granulocytes/100 WBC (Bld) 0.400 % 0.0-0.9 [facility] Comment on above: IG% - Immature Granu locytes (promyelocytes, myelocytes and metamyelocytes) > 1% indicates that a LEFT SHIFT is Present. Laboratory - Chemistry and C hemistry - challengeOrdered By: Rosinamarysvilleronel Traore on 10-31-2023 Albumin/Globulin [Mass ratio] 0.9 {ratio} 0.9-2.4 [facility] ALP [Catalytic activity/Vol] 70 U/L 45-117 [facility] ALT [Catalytic activity/Vol] 26 U/L 13-56 [facility] Cholesterol in HDL [Mass/Vol] 48 mg/dL >40 [facility] Comment on above: The drugs N-Acetylcy steine and Metamizole may falsely depress this assay. Reference Range HDL <40 mg/dL Low HDL Cholesterol HDL >or= 60 mg/dL High HDL Cholesterol Cholesterol in LDL [Mass/Vol] 142 mg/dL 0-130 [facility] CO2 [Moles/Vol] 29.0 mmol/L 21.0-32.0 [facility] Globulin (S) [Mass/Vol] 4.1 g/dL 2.2-4.2 [facility] Urea nitrogen/Creatinine [Mass ratio] 24.5 mg/mg 10-20 [facility] Laboratory - Hematology and Cell countsOrdered By: karthikmarysvilleronel Traore on 10-31-2023 MCH (RBC) [Entitic mass] 29.3 pg 27.0-32.0 [facility] MCHC (RBC) [Mass/Vol] 32.7 g/dL 32-36 [facility] Nucleated RBC/100 WBC (Bld) [Ratio] 0 % 0-5 [facility] Platelet mean volume (Bld) [Entitic vol] 10.3 fL 6.2-12.0 [facility] Platelets (Bld) [#/Vol] 363 10*3/uL 150-450 [facility] No Panel InformationOrdered By: Leonidas Traore on 10-31-2023 Estimated GFR (MDRD) Amer 85 mL/min >60 [facility] Comment on above: GFR Calc Estimated GFR (MDRD) Non-Af Amer 70 mL/min >60 [facility] Comment on above: Non- GFR Calc VLDL Cholesterol 42 mg/dL 5-40 [facility] RBC Auto (Bld) [#/Vol]Ordere d By: Leonidas Traore on 10-31-2023 RBC (Bld) [#/Vol] 5.15 10*6/uL 4.2-5.4 [facility] Serum or plasma calcium za urement (mass/volume)Ordered By: Leonidas Traore on 10-31-2023 Calcium [Mass/Vol] 9.2 mg/dL 8.5-10.1 [facility] Serum or plasma creatinine m easurement (mass/volume)Ordered By: Leonidas Traore on 10-31-2023 Creatinine [Mass/Vol] 0.86 mg/dL 0.55-1.02 [facility] Comment on above: The validity of the calculated GFR & GFRAA in patients over 70 years has not been determined. Clinical correlation is essential. Serum or plasma urea nitroge n measurement (mass/volume)Ordered By: Leonidas Traore on 10-31-2023 Urea nitrogen [Mass/Vol] 21 mg/dL 7-18 [facility] Thin prep Papanicolaou smear with manual screeningOrdered By: Leonidas Traore on 10-31-2023 Thin prep Papanicolaou smear with manual screening 3.5 g/dL 3.2-5.0 [facility] Thin prep Papanicolaou smear with manual screening 14 U/L 15-37 [facility] Thin prep Papanicolaou smear with manual screening 6 5-15 [facility] Whole blood hemoglobin A1c/t otal hemoglobin ratio (mass fraction)Ordered By: Leonidas Traore on 10-31-2023 HbA1c (Bld) [Mass fraction] 5.7 % 3.8-5.6 [facility] Comment on above: Normal < 5.7 % Predi abetic 5.7 - 6.4 % Diabetic >or= 6.5 % Please note range changes. Absolute lymphocyte counton 05-03-2022 Lymphocytes Auto (Unsp spec) [#/Vol] 4.38 10*3/uL 0.83-4.51 [facility] Work Phone: Basophil percentageon 2021 Basophils/100 WBC (Bld) 0.5 % 0-1 [facility] Work Phone: Bilirubin [Mass/Vol] 0.30 mg/dL 0.20-1.00 [facility] Work Phone: Comment on above: For patients on eltr ombopag therapy, use of Dimension [place] TBIL is not recommended. Chloride [Moles/Vol] 103 mmol/L 98-107 [facility] Work Phone: Cholesterol [Mass/Vol] 216 mg/dL <200 [facility] Work Phone: Comment on above: <200 mg/dL Desirable 200-240 mg/dL Borderline >240 mg/dL High Risk Eosinophils/100 WBC (Bld) 0.6 % 0-5 [facility] Work Phone: Glucose [Mass/Vol] 93 mg/dL 74-106 [facility] Work Phone: Neutrophils (Bld) [#/Vol] 8.3 10*3/uL 2.0-7.7 [facility] Work Phone: Neutrophils/100 WBC (Bld) 60.4 % 47-70 [facility] Work Phone: Potassium [Moles/Vol] 3.3 mmol/L 3.5-5.1 [facility] Work Phone: Protein [Mass/Vol] 7.9 g/dL 6.4-8.2 [facility] Work Phone: Sodium [Moles/Vol] 139 mmol/L 136-145 [facility] Work Phone: Triglyceride [Mass/Vol] 112 mg/dL <199 [facility] Work Phone: Comment on above: The drugs N-Acetylcy steine and Metamizole may falsely depress this assay.Serum Triglycerides Reference Interval Normal <150 mg/dL Borderline high 150 - 199 mg/dL High 200 - 499 mg/dL Very High > or = 500 mg/dL WBC (Bld) [#/Vol] 13.8 10*3/uL 4.4-11.0 [facility] Work Phone: Blood erythrocytes count (nu mber/volume)on 05-03-2022 RBC (Bld) [#/Vol] 5.32 10*6/uL 4.2-5.4 [facility] Work Phone: Blood hemoglobin measurement (mass/volume)on 05-03-2022 Hemoglobin (Bld) [Mass/Vol] 16.0 g/dL 12.0-15.0 [facility] Work Phone: Blood lymphocytes/100 leukoc yteson 05-03-2022 Lymphocytes/100 WBC (Bld) 31.8 % 19-41 [facility] Work Phone: Blood monocytes/100 leukocyt eson 05-03-2022 Monocytes/100 WBC (Bld) 6.3 % 0-10 [facility] Work Phone: Blood platelet mean volumeon 05-03-2022 Platelet mean volume (Bld) [Entitic vol] 10.1 fL 6.2-12.0 [facility] Work Phone: Determination of erythrocyte mean corpuscular volume (MCV)on 05-03-2022 MCV (RBC) [Entitic vol] 90.6 fL 81-99 [facility] Work Phone: Direct bilirubinon 2 Bilirubin.direct [Mass/Vol] 0.09 mg/dL 0.00-0.30 [facility] Work Phone: Hematocrit Auto (Bld) [Volum e fraction]on 05-03-2022 Hematocrit (Bld) [Volume fraction] 48.2 % 37-47 [facility] Work Phone: Laboratory - Chemistry and C hemistry - challengeon 05-03-2022 ALP [Catalytic activity/Vol] 83 U/L 45-117 [facility] Work Phone: ALT [Catalytic activity/Vol] 22 U/L 13-56 [facility] Work Phone: CO2 [Moles/Vol] 31.0 mmol/L 21.0-32.0 [facility] Work Phone: Globulin (S) [Mass/Vol] 4.2 g/dL 2.2-4.2 [facility] Work Phone: Natriuretic peptide B (Bld) [Mass/Vol] 44.3 pg/mL 0-100 [facility] Work Phone: Urea nitrogen/Creatinine [Mass ratio] 25.4 mg/mg 10-20 [facility] Work Phone: Laboratory - Hematology and Cell countson 05-03-2022 Erythrocyte distribution width (RBC) [Entitic vol] 44.2 fL 35.1-43.9 [facility] Work Phone: Erythrocyte distribution width (RBC) [Ratio] 13.2 % 11.6-14.6 [facility] Work Phone: Immature granulocytes/100 WBC (Bld) 0.400 % 0.0-0.9 [facility] Work Phone: Comment on above: IG% - Immature Granu locytes (promyelocytes, myelocytes and metamyelocytes) > 1% indicates that a LEFT SHIFT is Present. MCH (RBC) [Entitic mass] 30.1 pg 27.0-32.0 [facility] Work Phone: Nucleated RBC/100 WBC (Bld) [Ratio] 0 % 0-5 [facility] Work Phone: MCHC Auto (RBC) [Mass/Vol]on 05-03-2022 MCHC (RBC) [Mass/Vol] 33.2 g/dL 32-36 [facility] Work Phone: No Panel Informationon 05-03 Estimated GFR (MDRD) Amer 122 mL/min >60 [facility] Work Phone: Comment on above: GFR Calc Estimated GFR (MDRD) Non-Af Amer 101 mL/min >60 [facility] Work Phone: Comment on above: Non- GFR Calc Platelets bldon 05-03-2022 Platelets (Bld) [#/Vol] 409 10*3/uL 150-450 [facility] Work Phone: Serum or plasma albumin za urement (mass/volume)on 05-03-2022 Albumin [Mass/Vol] 3.7 g/dL 3.2-5.0 [facility] Work Phone: Serum or plasma calcium za urement (mass/volume)on 05-03-2022 Calcium [Mass/Vol] 8.9 mg/dL 8.5-10.1 [facility] Work Phone: Serum or plasma cholesterol in HDL measurement (mass/volume)on 05-03-2022 Cholesterol in HDL [Mass/Vol] 56 mg/dL >40 [facility] Work Phone: Comment on above: The drugs N-Acetylcy steine and Metamizole may falsely depress this assay. Reference Range HDL <40 mg/dL Low HDL Cholesterol HDL >or= 60 mg/dL High HDL Cholesterol Serum or plasma cholesterol in VLDL measurement (mass/volume)on 05-03-2022 Cholesterol in VLDL [Mass/Vol] 22 mg/dL 5-40 [facility] Work Phone: Serum or plasma creatinine m easurement (mass/volume)on 05-03-2022 Creatinine [Mass/Vol] 0.63 mg/dL 0.55-1.02 [facility] Work Phone: Comment on above: The validity of the calculated GFR & GFRAA in patients over 70 years has not been determined. Clinical correlation is essential. Serum or plasma low density lipoprotein (LDL) cholesterol measurement (mass/volume)on 05-03-2022 Cholesterol in LDL [Mass/Vol] 138 mg/dL 0-130 [facility] Work Phone: Serum or plasma urea nitroge n measurement (mass/volume)on 05-03-2022 Urea nitrogen [Mass/Vol] 16 mg/dL 7-18 [facility] Work Phone: Thin prep Papanicolaou smear with manual screeningon 05-03-2022 Thin prep Papanicolaou smear with manual screening 15 U/L 15-37 [facility] Work Phone: Thin prep Papanicolaou smear with manual screening 5 5-15 [facility] Work Phone: Op Noteon 11-30-2019 Op Note [facility] [address] [place] [address] Dept: [phone] Loc: [phone] Operative Report Patient Name: Giovanni Lomax Date of : 1955 Date of Surgery: 11/30/19 Pre-operative diagnosis: Left proximal humerus fracture Post-operative diagnosis: Same Procedure(s): Open reduction internal fixation of left proximal humerus fracture (CPT 10740) Surgeon: Guido Bishop M.D. Emergency Telecommunications Dispatcher(s): Carlo Nunez M.D. and Babak Underwood PA-C Anesthesia: General and Nerve Block EBL: Minimal IVF: Crystalloid Medications: Two grams of Cefazolin were given. Implants: Synthes proximal humerus plate I understand that section 1842(b)(7)(D) of the Social Security Act generally prohibits Medicare physician fee schedule payment for the services of assistants at surgery in teaching hospitals when qualified residents are available to furnish such services. I certify that the services for which payment is claimed were medically necessary and that no qualified resident was available to perform the services. I further understand that these services are subject to post-payment review by the Medicare carrier. Clinical History/Indication for Surgery The patient is a 64 y.o. year old female who was presents for operative fixation of a displaced left proximal humerus fracture. Typical indications for surgery were reviewed and operative fixation was recommended. Risks of fracture surgery in general were reviewed including, but not limited to, infection, non-union, need for additional procedures, painful or prominent hardware which could require removal, failure of fixation which would require revision, damage to normal structures as well as medical complications such as MN, stroke, PE, DVT, and even . Specific indications and/or risks of this procedure were discussed as well including, but not limited to: skin numbness below the incision and symptomatic hardware which could require removal. Pt was given opportunity to ask questions and consider her options. She ultimately elected to proceed with surgery. No guarantees were given or implied. 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 She was counseled that she is very high risk for surgery and should strongly consider non-operative treatment. 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 She was cleared by her teleradiologist. She needs to stay on her thinners so we will operate through this and she was warned about excessive intra-op and post-operative bleeding. Operative Narration The patient was identified in the pre-operative holding area. The surgical site was identified and marked. Informed consent was obtained. The patient was then brought to the operating room and placed supine on the operating table. Anesthesia was administered and care of the head, neck, and airway was maintained by the anesthesia staff throughout the entire procedure. All bony prominences were identified and padded. A surgical timeout was performed. Antibiotics were confirmed to have been given. A 2-3cm incision was made off the anterolateral corner of the acromion in line with the arm. This was taken to the deltoid fascia. The raphe between the anterior and middle heads was identified and the fascia incised. The muscle was bluntly divided and the deep deltoid fascia was opened and the fracture palpated. There was abundant soft callus which prohibited reduction therefore the incision was extended into a full deltoid split approach. There was significant healing/scarring of the under surface of the deltoid to the fracture site. This was mobilized. The shaft was eventually lateralized and held with a k-wire. There was a large metaphyseal defect which was filled with cancellous chips. The synthes proximal humerus plate was utilized. Once the correct height was established a whirlybird compression tool was placed distally. The alignment of the plate was confirmed on the lateral and a screw placed proximally in the shaft. A total of three screw were placed into the shaft of the plate. Reduction was confirmed on AP and lateral and multiple 3.5mm locking screws were drilled and filled proximally. Final images were obtained. Live fluoroscopy confirmed no screws penetrated the articular surface. The incision was copiously irrigated and closed in a layered fashion using 0-vicryl on fascia, followed by 2-0 vicryl and 4-0 monocryl with steri strips on skin. Sterile dressing was applied. Once the patient was awakened from anesthesia, they were transported to the PACU in stable condition, having tolerated surgery well with no immediate complications. Postoperative Plan Hold PT until first visit NWB through arm Sling use prn Post op visit in 2wks This operative report was prepared and signed by Guido Bishop MD at 11/30/19, 2:44 PM Normal [facility] Basic Metabolic Panelon 11-09 Anion gap [Moles/Vol] 11 Normal [facility] Comment on above: Performed By: #### H GHCT BMP3 #### [address] [address] [place], [place] Calcium [Mass/Vol] 9.5 mg/dL Normal 8.4-10.4 [facility] Comment on above: Performed By: #### H GHCT BMP3 #### [address] [address] [place] [address] CO2 [Moles/Vol] 25 mmol/L Normal 22-30 [facility] Comment on above: Performed By: #### H GHCT BMP3 #### [address] [address] [place], [place] Glucose [Mass/Vol] 107 mg/dL High 70-100 [facility] Comment on above: Performed By: #### H GHCT, BMP3 #### [address] [address] [place], [place] Urea nitrogen [Mass/Vol] 18 mg/dL Normal 7-20 [facility] Comment on above: Performed By: #### H GHCT, BMP3 #### [address] [address] [place], [place] Creatinine [Mass/Vol] 0.57 mg/dL Normal 0.52-1.25 [facility] Comment on above: Performed By: #### H LASTCT BMP3 #### [facility] [address] [place] [address] GFR/1.73 sq M predicted among blacks MDRD (S/P/Bld) [Vol rate/Area] mL/min/{1.73_m2} Normal >60 [facility] Comment on above: Performed By: #### H LASTCT BMP3 #### [facility] [address] [place] [address] GFR/1.73 sq M predicted among non-blacks MDRD (S/P/Bld) [Vol rate/Area] mL/min/{1.73_m2} Normal >60 [facility] Comment on above: Result Comment: KDIG O guidelines provide the following GFR categories: Stage GFR(ml/min/1.73 m2) Terms G1 >=90 Normal or high G2 60-89 Mildly decreased* G3a 45-59 Mildly to moderately decreased G3b 30-44 Moderately to severely decreased G4 15-29 Severely decreased G5 <15 Kidney failure *Relative to young adult level. In the absence of evidence of kidney damage, neither GFR category G1 nor G2 fulfill the criteria for CKD. The CKD-EPI equation is validated in individuals 18 years of age and older. Currently the best equation for estimating glomerular filtration rate (GFR) from serum creatinine in children is the Bedside Mullen equation. It is less accurate in patients with extremes of muscle mass, restriction of dietary protein, ingestion of creatine, extra-renal metabolism of creatinine, or treatment with medications that affect renal tubular creatinine secretion. Performed By: #### H ELEUTERIO BMP3 #### [facility] [address], [place] Potassium [Moles/Vol] 4.2 mmol/L Normal 3.5-5.1 [facility] Comment on above: Performed By: #### H ELEUTERIO BMP3 #### [facility] [address], [place] Sodium [Moles/Vol] 137 mmol/L Normal 135-145 [facility] Comment on above: Performed By: #### H ELEUTERIO BMP3 #### [facility] [address] Chloride [Moles/Vol] 100 mmol/L Normal 98-107 [facility] Comment on above: Performed By: #### H IAN MCCLELLAN3 #### [address] Anion gap [Moles/Vol] 11 mmol/L [place], [place] Calcium [Mass/Vol] 9.5 mg/dL 8.4 - 10. 4 mg/dL [place], [place] Chloride [Moles/Vol] 100 mmol/L 98 - 10 7 mmol/L [place] CO2 [Moles/Vol] 25 mmol/L 22 - 30 mmol/L [place] Creatinine [Mass/Vol] 0.57 mg/dL 0.52 - 1.25 mg/dL [place] EGFR IF NonAfrican Kyrgyz >90.0 >60 mL/min [place], [place] Comment on above: KDIGO guidelines pro vide the following GFR categories: Stage GFR(ml/min/1.73 m2) Terms G1 >=90 Normal or high G2 60-89 Mildly decreased* G3a 45-59 Mildly to moderately decreased G3b 30-44 Moderately to severely decreased G4 15-29 Severely decreased G5 <15 Kidney failure *Relative to young adult level. In the absence of evidence of kidney damage, neither GFR category G1 nor G2 fulfill the criteria for CKD. The CKD-EPI equation is validated in individuals 18 years of age and older. Currently the best equation for estimating glomerular filtration rate (GFR) from serum creatinine in children is the Bedside Mullen equation. It is less accurate in patients with extremes of muscle mass, restriction of dietary protein, ingestion of creatine, extra-renal metabolism of creatinine, or treatment with medications that affect renal tubular creatinine secretion. GFR/1.73 sq M predicted among blacks MDRD (S/P/Bld) [Vol rate/Area] mL/min/{1.73_m2} >60 mL/min [place], [place] Glucose [Mass/Vol] 107 mg/dL High 70 - 100 mg/dL [place] Interpretation and review of laboratory results Abnormal [place] Potassium [Moles/Vol] 4.2 mmol/L 3.5 - 5.1 mmol/L [facility], [place] Sodium [Moles/Vol] 137 mmol/L 135 - 145 mmol/L [facility], [place] Urea nitrogen [Mass/Vol] 18 mg/dL 7 - 20 mg/dL [facility], [place] Test Performed by [facility], [address] [place] [address] [facility], [place] Hemoglobin AND Hematocriton 11-29-2019 Hematocrit (Bld) [Volume fraction] 38.7 % Normal 35.0-47.0 [facility] Comment on above: Performed By: #### H GHCT, BMP3 #### [address] [address] Hemoglobin (Bld) [Mass/Vol] 13.4 g/dL Normal 11.7-16.0 [facility] Comment on above: Performed By: #### H GHCT, BMP3 #### [address] [address] Hemoglobin and Hematocrit, B loodon 11-29-2019 Hematocrit (Bld) [Volume fraction] 38.7 % 35 - 47 % [place], [place] Hemoglobin (Bld) [Mass/Vol] 13.4 g/dL 11.7 - 16 g/dL [facility], [place] Test Performed by [facility], [address] [place] [address] [facility], MARIO CNPLa Nena 11-21-2019 CNPN Telephone ([id number]) GIOVANNI LOMAX ([id number]) 1955 F Date Time Provider Department 11/21/19 TRACY LUNA During your visit today, we recorded the following information about you: Deidra Cadena 11/21/2019 11:46 AM Signed Called patient - left message that Dr. Luna only sees knees and shoulders Also stated we would be happy to have her see another physician that covers that body part as long as she did not have surgery since it would still be in the global period. Per notes below, patient had a CT of the arm. I did state that having the CT w/results would be beneficial if she sees a physician here in our practice. Thank you Nadja Nisreen P Ortho Triage Pool ? Subject Line Format: Orthopedics / [Provider Name or Open AND Body Part] ?/ [Issue] Patient has been identified by name and Date of (Y/N): y Patient: Giovanni Lomax Date of : 1955 Previous Provider Seen: None Body Part(s) Identified: left arm fracture happened on 11-05-2019 Diagnosis/Reason For Visit: needs a follow up for a left arm fracture was going to a provider at [facility] and is not happy and a friend told her about Dr. Luna. Reason for the call/escalation: Patient would like to make appt to be seen for her left arm fracture that she was told needs surgery doctor that she was told to see at [facility] only is in 1 day a week and has no openings for a while and she is not happy. If reason for call/escalation is discharge from ED/ER or Hospital, which facility was the patient seen at: Was seen back at end of October in [place] and they did a CT scan of the arm if you need to contact them for the images she does not think her insurance will cover another Ct at this time . Was an appointment scheduled (Y/N): no needs one please Person calling if other than patient: self Return call to if other than patient: self Best contact number: [phone] Nadja Nisreen November 21, 2019 ?10:26 AM Allergies As of Date: 11/21/2019 (No Known Allergies) Date Reviewed: 06/27/2019 Reviewed by: Rome Love - Fully Assessed Reason for Visit: Contact Center Call [[id number]] Prescriptions as of 11/21/2019 Sig: LISINOPRIL 5 MG TABLET Take 5 mg by mouth. BRILINTA 90 MG TABLET Take by mouth. LOSARTAN 50 MG TABLET Take 50 mg by mouth once linda* PEG 3350 240 GRAM-ELECTROLYTE* Take 4000 ml as directed. Fo* VARENICLINE 0.5 MG (11)-1 MG * Take one 0.5mg tablet by mout* Patient not taking: Reported on 06/26/2019 CLOPIDOGREL 75 MG TABLET Take 1 tablet by mouth once d* CARVEDILOL 3.125 MG TABLET Take 1 tablet by mouth twice * PRAVASTATIN 80 MG TABLET Take 1 tablet by mouth once d* NITROGLYCERIN 0.4 MG SUBLINGU* Dissolve 1 tablet under the t* FLAXSEED OIL-OMEGA 3,6,9-FATT* Take 1 capsule by mouth once * ASPIRIN 81 MG CHEWABLE TABLET Take 1 tablet by mouth once d* * PRAMIPEXOLE 0.25 MG TABLET Take 1 tablet by mouth once d* Patient taking differently: Take 0.5 mg by mouth once eleonora* * LISINOPRIL 20 MG-HYDROCHLOROT* Take 1 tablet by mouth once d* Problem List As Of Date 11/21/2019 Noted Resolved MIGRAINE NEC [346.8] SENILE OSTEOPOROSIS [M81.0] RESTLESS LEGS SYNDROME [G25.81] BENIGN HYPERTENSION [I10] More... TOBACCO USE DISORDER [F17.200] HYPERLIPIDEMIA NEC/NOS [E78.5] More... NAUSEA ALONE [R11.0] 11/08/2007 FLATUL/ERUCTAT/GAS PAIN [R14.3, R14.1, R14.2] 11/08/2007 ACUTE GASTRITIS W HEMORRHAGE [K29.01] 12/28/2007 More... LOC OSTEOARTH NOS-PELVIS [M16.9] 04/19/2008 RECURR DEPR PSYCHOS-UNSP [F33.9] 10/15/2008 COPD [J44.9] 02/21/2009 Coronary artery disease involving robinson jauregui*02/24/2016 Dyspnea on exertion [R06.00] 02/24/2016 Encounter Status:Closed by DEIDRA CADENA on 11/21/19 Normal [facility] YASMINE CULTURE-STOOL ([id number])Ord ered By: Golf Club Maker on 05-04-2019 Bacteria identified Cx Nom (Unsp spec) [facility] Normal [facility] Work Phone: Comment on above: No Campylobacter spe cies isolated. PATIENT NOT FASTINGP ERFORMED BY: CB [facility] Hvpzqr8876 [address] Road[address] [place] [id number] Information: SRC:ST SRC:ST Bacteria identified Cx Nom (Unsp spec) NSS Normal [facility] Work Phone: Comment on above: No Salmonella or Candi gella recovered. PATIENT NOT FASTINGP ERFORMED BY: CB [facility] Enfykd4627 [address] Road[address] [place] [id number] Information: SRC:ST SRC:ST Campylobacter sp identified Org specific cx Nom (Stl) Final report Normal [facility] Work Phone: Comment on above: PATIENT NOT FASTINGP ERFORMED BY: CB [facility] Lhasti6669 [address] Road[address] [place] [id number] Information: SRC:ST SRC:ST E. coli shiga-like toxin IA Ql (Stl) Negative Normal [facility] Work Phone: Comment on above: PATIENT NOT FASTINGP ERFORMED BY: CB [facility] Nilsrr4037 [address] Road[address] [place] [id number] Information: SRC:ST SRC:ST E. coli shiga-like toxin IA Ql (Stl) Negative Normal [facility]; [facility] Work Phone: Comment on above: PATIENT NOT FASTINGP ERFORMED BY: CB [facility] Pckixd0251 [address] Road[address] [place] [id number] Information: SRC:ST SRC:ST Salmonella and Shigella sp identified Org specific cx Nom (Stl) Final report Normal Comprehens n[facility] Work Phone: Comment on above: PATIENT NOT FASTINGP ERFORMED BY: CB [facility] Ynlhpi9163 [address] Road[address] [place] [id number] Information: SRC:ST SRC:ST C-DIFFICILE, STOOL ([id number])Or dered By: Golf Club Maker on 05-04-2019 C. difficile toxin A+B IA Ql (Stl) Negative Normal [facility] Work Phone: Comment on above: PATIENT NOT FASTINGP ERFORMED BY: CB [facility] Wccfbi5127 [address] Road[address] [place] [id number] C. difficile toxin A+B IA Ql (Stl) Negative Normal [facility]; [facility] Work Phone: Comment on above: PATIENT NOT FASTINGP ERFORMED BY: ESTEFANI [facility] Xqqpzv0483 [address] [facility] [place] [id number] LEUKOCYTE COUNT, FECAL ([id number])Ordered By: Golf Club Maker on 05-04-2019 WBC LM Ql (Stl) Final report Normal [facility]pre[facility] Work Phone: Comment on above: PATIENT NOT FASTINGP ERFORMED BY: CB [facility] Tydgag2114 [address] [place] [id number] WBC LM Ql (Stl) NWBC Normal Comprehen [facility] Work Phone: Comment on above: No white blood cells seen. PATIENT NOT FASTINGP ERFORMED BY: ESTEFANI [facility] Eonwkq8930 [address] Road[address] [place] [id number] OVA & PARASITE DIR SMEAR ([id number])Ordered By: Golf Club Maker on 05-04-2019 Ova and parasites identified Concentration Nom (Stl) NOCP1 Normal Comprehe [facility] Work Phone: Comment on above: No ova, cysts, or pa rasites seen. .One negative specimen does not rule out the possibility of aparasitic infection. PATIENT NOT FASTINGP ERFORMED BY: ESTEFANI [facility] Lkjkct7447 [address] [facility] [id number] Ova and parasites identified LM Nom (Unsp spec) Final report Normal [facility] Work Phone: Comment on above: These results were o btained using wet preparation(s) and trichromestained smear. This test does not include testing for Cryptosporidiumparvum, Cyclospora, or Microsporidia. PATIENT NOT FASTINGP ERFORMED BY: CB [facility] Ghhklv4063 [address] [facility] [place] [id number] C-REACTIVE PROTEIN ([id number])Or dered By: Golf Club Maker on 05-03-2019 CRP [Mass/Vol] 7 mg/L Normal 0-10 Comprehens [facility] Work Phone: Comment on above: PATIENT NOT FASTINGP ERFORMED BY: CB [facility] Malseb8198 [address] [facility] [id number] CBC with auto diff ([id number])Or dered By: Golf Club Maker on 05-03-2019 Basophils (Bld) [#/Vol] 0.0 {x10E3/uL} Normal 0.0-0.2 [facility] Work Phone: Comment on above: PATIENT NOT FASTINGP ERFORMED BY: [facility] Srvvui8050 [address] [place] [id number] Basophils (Bld) [#/Vol] 0.0 10*3/uL Normal 0.0-0.2 [facility]; [facility] Work Phone: Comment on above: PATIENT NOT FASTINGP ERFORMED BY: CB [facility] Jrqore2774 [address] [place] [id number] Basophils/100 WBC (Bld) 0 % Normal C omprehensive [facility] Work Phone: Comment on above: PATIENT NOT FASTINGP ERFORMED BY: [facility] Ehfxmd5041 Marie RoadUnc Healthin [place] [id number] Eosinophils (Bld) [#/Vol] 0.3 {x10E3/uL} Normal 0.0-0.4 [facility] Work Phone: Comment on above: PATIENT NOT FASTINGP ERFORMED BY: [facility] Adgvds5208 [address]bl[address] [place] [id number] Eosinophils (Bld) [#/Vol] 0.3 10*3/uL Normal 0.0-0.4 [facility]; [facility] Work Phone: Comment on above: PATIENT NOT FASTINGP ERFORMED BY: CB [facility] Vihgsj9427 [address] [place] [id number] Eosinophils/100 WBC (Bld) 3 % Normal [facility] Work Phone: Comment on above: PATIENT NOT FASTINGP ERFORMED BY: CB [facility] Tahwmw9437 [address] [facility] [place] [id number] Erythrocyte distribution width (RBC) [Ratio] 14.3 % Normal 12.3-15.4 [facility] Work Phone: Comment on above: PATIENT NOT FASTINGP ERFORMED BY: ESTEFANI [facility] Akkqsj1468 [address] RoadD[address] [place] [id number] Hematocrit (Bld) [Volume fraction] 42.0 % Normal 34.0-46.6 [facility] Work Phone: Comment on above: PATIENT NOT FASTINGP ERFORMED BY: CB [facility] Vbpbdb2198 [address] RoadDublin [place] [id number] Hemoglobin (Bld) [Mass/Vol] 14.1 g/dL Normal 11.1-15.9 [facility] Work Phone: Comment on above: PATIENT NOT FASTINGP ERFORMED BY: CB [facility] Jrcnhe6490 [address] RoadD[address] [place] [id number] Immature granulocytes (Bld) [#/Vol] 0.0 {x10E3/uL} Normal 0.0-0.1 [facility] Work Phone: Comment on above: PATIENT NOT FASTINGP ERFORMED BY: CB [facility] Mhguem3409 [address] RoadD[address] [place] [id number] Immature granulocytes (Bld) [#/Vol] 0.0 10*3/uL Normal 0.0-0.1 [facility]; [facility] Work Phone: Comment on above: PATIENT NOT FASTINGP ERFORMED BY: CB [facility] Spjlrz3739 [address] [place] [id number] Immature granulocytes/100 WBC (Bld) 0 % Normal [facility] Work Phone: Comment on above: PATIENT NOT FASTINGP ERFORMED BY: CB [facility] Xdzqtc7962 [address] [place] [id number] Lymphocytes (Bld) [#/Vol] 2.3 {x10E3/uL} Normal 0.7-3.1 [facility] Work Phone: Comment on above: PATIENT NOT FASTINGP ERFORMED BY: CB [facility] Qmdshr9942 [address] [place] [id number] Lymphocytes (Bld) [#/Vol] 2.3 10*3/uL Normal 0.7-3.1 [facility]; [facility] Work Phone: Comment on above: PATIENT NOT FASTINGP ERFORMED BY: ESTEFANI [facility] Qviawb6242 [address] [place] [id number] Lymphocytes/100 WBC (Bld) 23 % Normal [facility] Work Phone: Comment on above: PATIENT NOT FASTINGP ERFORMED BY: CB [facility] Ffqkcd5797 [address] RoadD[address] [place] [id number] MCH (RBC) [Entitic mass] 30.1 pg Normal 26.6-33.0 [facility] Work Phone: Comment on above: PATIENT NOT FASTINGP ERFORMED BY: CB [facility] Brheav0672 [address] [place] [id number] MCHC (RBC) [Mass/Vol] 33.6 g/dL Normal 31.5-35.7 [facility] Work Phone: Comment on above: PATIENT NOT FASTINGP ERFORMED BY: CB [facility] Ljuqej5454 [address] [place] [id number] MCV (RBC) [Entitic vol] 90 fL Normal 79-97 [facility] Work Phone: Comment on above: PATIENT NOT FASTINGP ERFORMED BY: CB [facility] Ccbsmv6320 [address] [place] [id number] Monocytes (Bld) [#/Vol] 0.6 {x10E3/uL} Normal 0.1-0.9 [facility] Work Phone: Comment on above: PATIENT NOT FASTINGP ERFORMED BY: CB [facility] Akxrng9529 [address] [place] [id number] Monocytes (Bld) [#/Vol] 0.6 10*3/uL Normal 0.1-0.9 [facility]; [facility] Work Phone: Comment on above: PATIENT NOT FASTINGP ERFORMED BY: CB [facility] Ogzeaw6333 [address] [place] [id number] Monocytes/100 WBC (Bld) 6 % Normal [facility] Work Phone: Comment on above: PATIENT NOT FASTINGP ERFORMED BY: CB [facility] Limdni7305 [address] [place] [id number] Neutrophils (Bld) [#/Vol] 6.7 {x10E3/uL} Normal 1.4-7.0 [facility] Work Phone: Comment on above: PATIENT NOT FASTINGP ERFORMED BY: CB [facility] Kxqcen2091 [address] [place] [id number] Neutrophils (Bld) [#/Vol] 6.7 10*3/uL Normal 1.4-7.0 [facility]; [facility] Work Phone: Comment on above: PATIENT NOT FASTINGP ERFORMED BY: CB [facility] Pccrwp1843 [address] [place] [id number] Neutrophils/100 WBC (Bld) 68 % Normal [facility] Work Phone: Comment on above: PATIENT NOT FASTINGP ERFORMED BY: CB [facility] Uxqglg1481 [address] [place] [id number] Platelets (Bld) [#/Vol] 379 {x10E3/uL} Normal 150-450 [facility] Work Phone: Comment on above: PATIENT NOT FASTINGP ERFORMED BY: CB [facility] Txkswt4207 [address] [place] [id number] Platelets (Bld) [#/Vol] 379 10*3/uL Normal 150-450 [facility]; [facility] Work Phone: Comment on above: PATIENT NOT FASTINGP ERFORMED BY: CB [facility] Mgnyfn8223 [address] [place] [id number] RBC (Bld) [#/Vol] 4.68 {x10E6/uL} Normal 3.77-5.28 [facility] Work Phone: Comment on above: PATIENT NOT FASTINGP ERFORMED BY: CB [facility] Fgziuk6597 [address] [place] [id number] RBC (Bld) [#/Vol] 4.68 10*6/uL Normal 3.77-5.28 [facility]; [facility] Work Phone: Comment on above: PATIENT NOT FASTINGP ERFORMED BY: ESTEFANI Stubbs6370 [address] [facility] [id number] WBC (Bld) [#/Vol] 9.9 {x10E3/uL} Normal 3.4-10.8 [facility] Work Phone: Comment on above: PATIENT NOT FASTINGP ERFORMED BY: ESTEFANI Rashidlin6370 [address] [facility] [id number] WBC (Bld) [#/Vol] 9.9 10*3/uL Normal 3.4-10.8 [facility]; [facility] Work Phone: Comment on above: PATIENT NOT FASTINGP ERFORMED BY: ESTEFANI Rashidlin6370 [facility] [id number] Metabolic Panel, Comprehensi ve ([id number])Ordered By: Golf Club Maker on 05-03-2019 Albumin [Mass/Vol] 4.6 g/dL Normal 3.6-4.8 [facility] Work Phone: Comment on above: PATIENT NOT FASTINGP ERFORMED BY: ESTEFANI Rashidlin6370 [facility] [id number] Albumin/Globulin [Mass ratio] 1.8 {ratio} Normal 1.2-2.2 [facility] Work Phone: Comment on above: PATIENT NOT FASTINGP ERFORMED BY: ESTEFANI [facility] RashidLovbkl0479 [facility] [id number] ALP [Catalytic activity/Vol] 74 [iU]/L Normal 39-117 [facility] Work Phone: Comment on above: PATIENT NOT FASTINGP ERFORMED BY: ESTEFANI LabRomina Ixhfse5023 [facility] [id number] ALP [Catalytic activity/Vol] 74 U/L Normal 39-117 [facility]; [facility] Work Phone: Comment on above: PATIENT NOT FASTINGP ERFORMED BY: ESTEFANI [facility] Saeynz2165 [address] [place] [id number] ALT [Catalytic activity/Vol] 19 [iU]/L Normal 0-32 [facility] Work Phone: Comment on above: PATIENT NOT FASTINGP ERFORMED BY: ESTEFANI [facility] Jvplvt8905 [address] [place] [id number] ALT [Catalytic activity/Vol] 19 U/L Normal 0-32 [facility]; [facility] Work Phone: Comment on above: PATIENT NOT FASTINGP ERFORMED BY: ESTEFANI [facility] Kmmatd5912 [address] [place] [id number] AST [Catalytic activity/Vol] 18 [iU]/L Normal 0-40 [facility] Work Phone: Comment on above: PATIENT NOT FASTINGP ERFORMED BY: ESTEFANI [facility] Tqxqtv2317 [address] [place] [id number] AST [Catalytic activity/Vol] 18 U/L Normal 0-40 [facility] Work Phone: Comment on above: PATIENT NOT FASTINGP ERFORMED BY: ESTEFANI [facility] [id number] Marie RoadDublin [place] [id number] Bilirubin [Mass/Vol] 0.4 mg/dL Normal 0.0-1.2 [facility] Work [facility]: Comment on above: PATIENT NOT FASTINGP ERFORMED BY: [facility] [id number] Marie RoadDublin [place] [id number] Calcium [Mass/Vol] 9.3 mg/dL Normal 8.7-10.3 [facility] Internal Medicine Work Phone: Comment on above: PATIENT NOT FASTINGP ERFORMED BY: CB [facility] [id number] Marie RoadDublin [place] [id number] Chloride [Moles/Vol] 104 mmol/L Normal 96-106 [facility] Work Phone: Comment on above: PATIENT NOT FASTINGP ERFORMED BY: ESTEFANI [facility] [id number] Marie RoadDublin [place] [id number] CO2 [Moles/Vol] 21 mmol/L Normal 20-29 [facility] Internal [facility] Work Phone: Comment on above: PATIENT NOT FASTINGP ERFORMED BY: ESTEFANI [facility] [id number] [address] [facility] [place] [id number] Creatinine [Mass/Vol] 0.69 mg/dL Normal 0.57-1.00 [facility] Work Phone: Comment on above: PATIENT NOT FASTINGP ERFORMED BY: CB [facility] [id number] [address] [facility] [id number] GFR/1.73 sq M predicted among blacks CKD-EPI (S/P/Bld) [Vol rate/Area] 108 mL/min/1.73 Normal [facility] Work Phone: Comment on above: PATIENT NOT FASTINGP ERFORMED BY: ESTEFANI [facility] [id number] [facility]ECU [facility] [id number] GFR/1.73 sq M predicted among non-blacks CKD-EPI (S/P/Bld) [Vol rate/Area] 94 mL/min/1.73 Normal [facility] Work Phone: Comment on above: PATIENT NOT FASTINGP ERFORMED BY: ESTEFANI [facility] [id number] Marei [facility] [id number] Globulin (S) [Mass/Vol] 2.6 g/dL Normal 1.5-4.5 [facility] Work Phone: Comment on above: PATIENT NOT FASTINGP ERFORMED BY: CB [facility] [id number] [facility] [id number] Glucose [Mass/Vol] 81 mg/dL Normal 65-99 [facility] Internal Medicine Work Phone: Comment on above: PATIENT NOT FASTINGP ERFORMED BY: CB [facility] [id number] [address] [facility] [id number] Potassium [Moles/Vol] 4.6 mmol/L Normal 3.5-5.2 [facility] Work Phone: Comment on above: PATIENT NOT FASTINGP ERFORMED BY: CB [facility] [id number] Marie RoadDublin [place] [id number] Protein [Mass/Vol] 7.2 g/dL Normal 6.0-8.5 [facility] Internal Medicine Work Phone: Comment on above: PATIENT NOT FASTINGP ERFORMED BY: CB [facility] [id number] Marie RoadDublin [place] [id number] Sodium [Moles/Vol] 142 mmol/L Normal 134-144 [facility] Internal Medicine Work Phone: Comment on above: PATIENT NOT FASTINGP ERFORMED BY: CB [facility] [id number] Marie RoadDublin [place] [id number] Urea nitrogen [Mass/Vol] 21 mg/dL Normal 03-06 [facility] Internal Medicine Work Phone: Comment on above: PATIENT NOT FASTINGP ERFORMED BY: CB [facility] [id number] [address] RoadDublin [place] [id number] Urea nitrogen/Creatinine [Mass ratio] 30 mg/mg Abnormal 07-07 [facility] Internal Medicine Work Phone: Comment on above: PATIENT NOT FASTINGP ERFORMED BY: CB [facility] [id number] Marie RoadDublin [place] [id number] Sed Rate Erythrocyte (80636) Ordered By: [employer] Maker on 05-03-2019 ESR (Bld) [Velocity] 5 mm/h Normal 0-40 [facility] Internal Medicine Work Phone: Comment on above: PATIENT NOT FASTINGP ERFORMED BY: CB [facility] [id number] [address] RoadDublin [place] [id number] Vital Signs Date Time Vital Sign Value Performing Clinician Facility 09-12-2024 14:52-0500 Diastolic blood pressure 108 mm[Hg] Dr. Leonidas Traore MD Work Phone: [facility] 09-12-2024 14:52-0500 Systolic blood pressure 178 mm[Hg] Dr. Leonidas Traore MD Work Phone: [facility] 09-12-2024 14:12-0500 Body temperature 98.4 [degF] Dr. Leonidas Traore MD Work Phone: [facility] 09-12-2024 14:12-0500 Body weight 80.[address] Leonidas Traore MD Work Phone: [facility] 09-12-2024 14:12-0500 Heart rate 104 /min Dr. Leonidas Traore MD Work Phone: [facility] 09-12-2024 14:12-0500 Respiratory rate 16 /min Dr. Leonidas Traore MD Work Phone: [facility] 09-12-2024 14:12-0500 SaO2% (BldA) [Mass fraction] 93 % Dr. Leonidas Traore MD Work Phone: [facility] 08-08-2024 13:38-0500 Body height 162.[address] Leonidas Traore MD Work Phone: [facility] 08-08-2024 13:38-0500 Body mass index (BMI) [Ratio] 30.2 kg/m2 Dr. Leonidas Traore MD Work Phone: [facility] 08-08-2024 13:38-0500 Body temperature 98 [degF] Dr. Leonidas Traore MD Work Phone: [facility] 08-08-2024 13:38-0500 Body weight [address] Leonidas Traore MD Work Phone: [facility] 08-08-2024 13:38-0500 Diastolic blood pressure 80 mm[Hg] Dr. Leonidas Traore MD Work Phone: [facility] 08-08-2024 13:38-0500 Heart rate 110 /min Dr. Leonidas Traore MD Work Phone: [facility] 08-08-2024 13:38-0500 Respiratory rate 18 /min Dr. Leonidas Traore MD Work Phone: [facility] 08-08-2024 13:38-0500 SaO2% (BldA) [Mass fraction] 95 % Dr. Leonidas Traore MD Work Phone: [facility] 08-08-2024 13:38-0500 Systolic blood pressure 148 mm[Hg] Dr. Leonidas Traore MD Work Phone: [facility] 06-05-2024 13:39-0500 Body mass index (BMI) [Ratio] 28.54 kg/m2 Krislyn Aberegg PA Work Phone: [facility] 06-05-2024 13:39-0500 Body temperature 98.2 [degF] Krislyn Aberegg PA Work Phone: [facility] 06-05-2024 13:39-0500 Body weight 77.8 kg Krislyn Aberegg PA Work Phone: [facility] 06-05-2024 13:39-0500 Diastolic blood pressure 80 mm[Hg] Krislyn Aberegg PA Work Phone: [facility] 06-05-2024 13:39-0500 Heart rate 100 /min Krislyn Aberegg PA Work Phone: [facility] 06-05-2024 13:39-0500 Respiratory rate 18 /min Krislyn Aberegg PA Work Phone: [facility] 06-05-2024 13:39-0500 SaO2% (BldA) [Mass fraction] 94 % Krislyn Aberegg PA Work Phone: [facility] 06-05-2024 13:39-0500 Systolic blood pressure 126 mm[Hg] Krislyn Aberegg PA Work Phone: [facility] 12-20-2023 14:13-0400 Body height 165.1 cm Joanne Neal MD Work Phone: [employer] [facility] 12-20-2023 14:13-0400 Body mass index (BMI) [Ratio] 24.96 kg/m2 Joanne Neal MD Work Phone: [facility] 12-20-2023 14:13-0400 Body weight 68.04 kg Joanne Neal MD Work Phone: [facility] 12-20-2023 14:13-0400 Diastolic blood pressure 86 mm[Hg] Joanne Neal MD Work Phone: [facility] 12-20-2023 14:13-0400 Systolic blood pressure 142 mm[Hg] Joanne Neal MD Work Phone: [facility] 11-11-2023 16:00-0400 Body temperature 97.6 [degF] Dr. Leonidas Traore Work Phone: [facility] 11-11-2023 16:00-0400 Diastolic blood pressure 82 mm[Hg] Dr. Leonidas Traore Work Phone: [facility] 11-11-2023 16:00-0400 Heart rate 62 /min Dr. Leonidas Traore Work Phone: [facility] 11-11-2023 16:00-0400 Respiratory rate 16 /min Dr. Leonidas Traore Work Phone: [facility] 11-11-2023 16:00-0400 SaO2% (BldA) [Mass fraction] 96 % Dr. Leonidas Traore Work Phone: [facility] 11-11-2023 16:00-0400 Systolic blood pressure 100 mm[Hg] Dr. Leonidas Traore Work Phone: [facility] 11-11-2023 15:30-0400 Body height 162.[address] Leonidas Traore Work Phone: [facility] 11-11-2023 15:30-0400 Body weight [address] Leonidas Traore Work Phone: [facility] 11-11-2023 14:46-0400 Body mass index (BMI) [Ratio] 29.1 kg/m2 Dr. Leonidas Traore Work Phone: [facility] 11-10-2023 16:06-0400 Body temperature 98 [degF] Dr. Leonidas Traore Work Phone: [facility] 11-10-2023 16:06-0400 Diastolic blood pressure 75 mm[Hg] Dr. Leonidas Traore Work Phone: [facility] 11-10-2023 16:06-0400 Heart rate 65 /min Dr. Leonidas Traore Work Phone: [facility] 11-10-2023 16:06-0400 Respiratory rate 16 /min Dr. Leonidas Traore Work Phone: [facility] 11-10-2023 16:06-0400 SaO2% (BldA) [Mass fraction] 98 % Dr. Leonidas Traore Work Phone: [facility] 11-10-2023 16:06-0400 Systolic blood pressure 146 mm[Hg] Dr. Leonidas Traore Work Phone: [facility] 11-10-2023 14:12-0400 Body height 162.[address] Leonidas Traore Work Phone: [facility] 11-10-2023 14:12-0400 Body mass index (BMI) [Ratio] 29.4 kg/m2 Dr. Leonidas Traore Work Phone: [facility] 11-10-2023 14:12-0400 Body weight 77.[address] Leonidas Traore Work Phone: [facility] 10-31-2023 10:25-0400 Body height 162.[address] Leonidas Traore Work Phone: [facility] 10-31-2023 10:25-0400 Body mass index (BMI) [Ratio] 29 kg/m2 Dr. Leonidas Traore Work Phone: [facility] 10-31-2023 10:25-0400 Body temperature 99.3 [degF] Dr. Leonidas Traore Work Phone: [facility] 10-31-2023 10:25-0400 Body weight 76.[address] Leonidas Traore Work Phone: [facility] 10-31-2023 10:25-0400 Diastolic blood pressure 80 mm[Hg] Dr. Leonidas Traore Work Phone: [facility] 10-31-2023 10:25-0400 Heart rate 100 /min Dr. Leonidas Traore Work Phone: [facility] 10-31-2023 10:25-0400 Respiratory rate 18 /min Dr. Leonidas Traore Work Phone: [facility] 10-31-2023 10:25-0400 SaO2% (BldA) [Mass fraction] 93 % Dr. Leonidas Traore Work Phone: [facility] 10-31-2023 10:25-0400 Systolic blood pressure 126 mm[Hg] Dr. Leonidas Traore Work Phone: [facility] 07-14-2023 10:05-0500 Body mass index (BMI) [Ratio] 29.7 kg/m2 Dr. Leonidas Traore Work Phone: [facility] 07-14-2023 10:05-0500 Body temperature 98.6 [degF] Dr. Leonidas Traore Work Phone: [facility] 07-14-2023 10:05-0500 Body weight 78.[address] Leonidas Traore Work Phone: [facility] 07-14-2023 10:05-0500 Diastolic blood pressure 120 mm[Hg] Dr. Leonidas Traore Work Phone: [facility] 07-14-2023 10:05-0500 Heart rate 108 /min Dr. Leonidas Traore Work Phone: [facility] 07-14-2023 10:05-0500 Respiratory rate 17 /min Dr. Leonidas Traore Work Phone: [facility] 07-14-2023 10:05-0500 SaO2% (BldA) [Mass fraction] 94 % Dr. Leonidas Traore Work Phone: [facility] 07-14-2023 10:05-0500 Systolic blood pressure 184 mm[Hg] Dr. Leonidas Traore Work Phone: [facility] 05-04-2022 11:00-0400 Diastolic blood pressure 132 mm[Hg] Dr. Leonidas Traore Work Phone: [facility] Work Phone: 05-04-2022 11:00-0400 Systolic blood pressure 224 mm[Hg] Dr. Leonidas Traore Work Phone: [facility] Work Phone: 05-04-2022 10:12-0400 Body height 165.[address] Leonidas Traore Work Phone: [facility] Work Phone: 05-04-2022 10:12-0400 Body mass index (BMI) [Ratio] 28.8 kg/m2 Dr. Leonidas Traore Work Phone: [facility] Work Phone: 05-04-2022 10:12-0400 Body temperature 97.2 [degF] Dr. Leonidas Traore Work Phone: [facility] Work Phone: 05-04-2022 10:12-0400 Body weight 78.[address] Leonidas Traore Work Phone: [facility] Work Phone: 05-04-2022 10:12-0400 Heart rate 98 /min Dr. Leonidas Traore Work Phone: [facility] Work Phone: 05-04-2022 10:12-0400 Respiratory rate 18 /min Dr. Leonidas Traore Work Phone: [facility] Work Phone: 05-04-2022 10:12-0400 SaO2% (BldA) [Mass fraction] 91 % Dr. Leonidas Traore Work Phone: [facility] Work Phone: 04-29-2022 14:08-0400 Body mass index (BMI) [Ratio] 29.2 kg/m2 Dr. Leonidas Traore Work Phone: [facility] Work Phone: 04-29-2022 14:08-0400 Body temperature 98.2 [degF] Dr. Leonidas Traore Work Phone: [facility] Work Phone: 04-29-2022 14:08-0400 Body weight 77.[address] Leonidas Traore Work Phone: [facility] Work Phone: 04-29-2022 14:08-0400 Diastolic blood pressure 100 mm[Hg] Dr. Leonidas Traore Work Phone: [facility] Work Phone: 04-29-2022 14:08-0400 Heart rate 102 /min Dr. Leonidas Traore Work Phone: [facility] Work Phone: 04-29-2022 14:08-0400 Respiratory rate 16 /min Dr. Leonidas Traore Work Phone: [facility] Work Phone: 04-29-2022 14:08-0400 SaO2% (BldA) [Mass fraction] 93 % Dr. Leonidas Traore Work Phone: [facility] Work Phone: 04-29-2022 14:08-0400 Systolic blood pressure 142 mm[Hg] Dr. Leonidas Traore Work Phone: [facility] Work Phone: 04-29-2022 13:22-0400 Body mass index (BMI) [Ratio] 29.3 kg/m2 Dr. Leonidas Traore Work Phone: [facility] Work Phone: 04-29-2022 13:22-0400 Body weight 77.[address] Leonidas Traore Work Phone: [facility] Work Phone: 04-29-2022 13:22-0400 Diastolic blood pressure 104 mm[Hg] Dr. Leonidas Traore Work Phone: [facility] Work Phone: 04-29-2022 13:22-0400 Heart rate 95 /min Dr. Leonidas Traore Work Phone: [facility] Work Phone: 04-29-2022 13:22-0400 Respiratory rate 18 /min Dr. Leonidas Traore Work Phone: [facility] Work Phone: 04-29-2022 13:22-0400 SaO2% (BldA) [Mass fraction] 92 % Dr. Leonidas Traore Work Phone: [facility] Work Phone: 04-29-2022 13:22-0400 Systolic blood pressure 165 mm[Hg] Dr. Leonidas Traore Work Phone: [facility] Work Phone: 10-08-2021 12:36-0400 Body temperature 98.2 [degF] Abran Granados MD Work Phone: [facility] 10-08-2021 12:36-0400 Body weight 76.48 kg Abran Granados MD Work Phone: [facility] 10-08-2021 12:36-0400 Diastolic blood pressure 88 mm[Hg] Abran Granados MD Work Phone: [facility] 10-08-2021 12:36-0400 Heart rate 86 /min Abran Granados MD Work Phone: [facility] 10-08-2021 12:36-0400 Respiratory rate 16 /min Abran Granados MD Work Phone: [facility] 10-08-2021 12:36-0400 SaO2% (BldA) [Mass fraction] 95 % Abran Granados MD Work Phone: [facility] 10-08-2021 12:36-0400 Systolic blood pressure 136 mm[Hg] Abran Granados MD Work Phone: [facility] 06-20-2020 10:39-0500 BMI (Body Mass Index) 25.63 kg/m2 [facility]; [facility] Work Phone: 06-20-2020 10:39-0500 Body weight 69.85 kg [facility]; [facility] Work Phone: 06-20-2020 10:39-0500 BSA (Body Surface Area) 1.77 m2 [facility]; [facility] Work Phone: 06-20-2020 10:39-0500 Height 165.1 cm [facility]; [facility] Work Phone: 11-30-2019 14:00-0400 BP Diastolic 77 mm[Hg] [place] 11-30-2019 14:00-0400 BP Systolic 124 mm[Hg] [facility] [place] , [place] 11-30-2019 14:00-0400 Pulse (Heart Rate) 74 /min [facility] [place] 11-30-2019 14:00-0400 Respiratory Rate 17 /min [facility] [place] 11-30-2019 13:30-0400 Pulse Oximetry 98 % [facility] [place] , [place] 11-30-2019 13:20-0400 Body Temperature 97.7 [degF] [facility] [place] 11-30-2019 09:40-0400 BMI (Body Mass Index) 26.29 kg/m2 [facility] [place], [place] 11-30-2019 09:40-0400 Body weight 71.67 kg [facility] [place] , [place] 11-30-2019 09:40-0400 Height 165.1 cm [facility] , [place] 11-29-2019 09:32-0400 BP Diastolic 101 mm[Hg] [facility] [place] , [place] 11-29-2019 09:32-0400 BP Systolic 164 mm[Hg] [facility] [place] 11-29-2019 09:32-0400 Pulse (Heart Rate) 87 /min [facility], [place] 11-29-2019 09:08-0400 Body Temperature 99.5 [degF] [facility] [place] 11-29-2019 09:08-0400 Pulse Oximetry 98 % [facility] [place] , [place] 11-29-2019 09:08-0400 Respiratory Rate 16 /min [facility] [place] 11-29-2019 09:00-0400 BMI (Body Mass Index) 26.29 kg/m2 [facility], [place] 11-29-2019 09:00-0400 Body weight 71.67 kg [facility] [place] , [place] 11-29-2019 09:00-0400 Height 165.1 cm [facility] , [place] 05-03-2019 09:58-0400 BMI (Body Mass Index) 25.63 kg/m2 Yoli Reyna RN [facility] Work Phone: Comment on above: down 6 pounds 05-03-2019 09:58-0400 Body Temperature 98.7 [degF] Yoli Reyna RN [facility] Work Phone: Comment on above: Method: Temporal down 6 pounds 05-03-2019 09:58-0400 Body weight 69.85 kg Yoli Reyna RN [facility] Work Phone: Comment on above: down 6 pounds 05-03-2019 09:58-0400 BP Diastolic 70 mm[Hg] Yoli Reyna RN [facility] Work Phone: Comment on above: Patient Position: Sitting; Cuff Location : Left Arm; Cuff Size: Standard down 6 pounds 05-03-2019 09:58-0400 BP Systolic 134 mm[Hg] Yoli Reyna RN [facility] Work Phone: Comment on above: Patient Position: Sitting; Cuff Location : Left Arm; Cuff Size: Standard down 6 pounds 05-03-2019 09:58-0400 BSA (Body Surface Area) 1.77 m2 Yoli Reyna RN [facility] Work Phone: Comment on above: down 6 pounds 05-03-2019 09:58-0400 Height 165.1 cm Yoli Reyna RN [facility] Work Phone: Comment on above: down 6 pounds 05-03-2019 09:58-0400 Pulse (Heart Rate) 72 /min oYli Reyna RN [facility] Work Phone: Comment on above: Pattern: Regular down 6 pounds 05-03-2019 09:58-0400 Pulse Oximetry 98 % Kelly Anil [facility] Work Phone: Comment on above: Room air down 6 pounds 05-03-2019 09:58-0400 Respiratory Rate 16 /min Yoli Reyna RN [facility] Work Phone: Comment on above: Pattern: Unlabored down 6 pounds 05-03-2019 09:58-0400 SaO2% (BldA) [Mass fraction] 98 % Yoli Reyna RN [facility]; [facility] Work Phone: Comment on above: Room air down 6 pounds 02-19-2019 11:16-0400 BMI (Body Mass Index) 26.7 kg/m2 Minda Salazar RN [facility] Work Phone: 02-19-2019 11:16-0400 Body weight 72.77 kg Minda Salazar RN [facility] Work Phone: 02-19-2019 11:16-0400 BP Diastolic 82 mm[Hg] Minda Salazar RN [facility] Work Phone: Comment on above: Patient Position: Sitting; Cuff Location : Left Arm; Cuff Size: Standard 02-19-2019 11:16-0400 BP Systolic 142 mm[Hg] Minda Salazar RN [facility] Work Phone: Comment on above: Patient Position: Sitting; Cuff Location : Left Arm; Cuff Size: Standard 02-19-2019 11:16-0400 BSA (Body Surface Area) 1.8 m2 Minda Salazar RN [facility] Work Phone: 02-19-2019 11:16-0400 Height 165.1 cm Minda Salazar RN [facility] Work Phone: 02-19-2019 11:16-0400 Pulse (Heart Rate) 75 /min Minda Salazar RN [facility] Work Phone: Comment on above: Pattern: Regular 02-19-2019 11:16-0400 Pulse Oximetry 95 % Kelly Olvera [facility] Work Phone: Comment on above: Room air 02-19-2019 11:16-0400 Respiratory Rate 18 /min Minda Salazar RN Comprehens[facility] e [facility] Work Phone: Comment on above: Pattern: Unlabored 02-19-2019 11:16-0400 SaO2% (BldA) [Mass fraction] 95 % Minda Salazar RN [facility]; [facility] Work Phone: Comment on above: Room air Encounters Encounter Date Encounter Type Care Provider Facility Start: 11-14-2024 ambulatory Efewongbe Codye [facility] Start: 09-18-2024 ambulatory Efewongbe Olelaste Facili ty:[facility] Start: 09-12-2024 End: 09-12-2024 Patient encounter procedure Birdie BONNER -[facility] Work Phone: Start: 09-12-2024 End: 09-12-2024 ambulatory Efewongronel Dodsone Facility:[facility] Start: 08-31-2024 End: 08-31-[address] Leonidas Traore MD Work Phone: [facility] Work Phone: Start: 08-31-2024 End: 08-31-[address] Katie Washington MD -Laboratory, Specimen Work Phone: Start: 08-31-2024 End: 08-31-2024 Patient encounter procedure Wolf BONNER -[facility] Work Phone: Start: 08-31-2024 End: 08-31-2024 ambulatory Wolf BONNER Facility:[facility] Start: 08-31-2024 End: 08-31-2024 amb[facility] Start: 08-08-2024 End: 08-08-[address] Leonidas Traore MD -[facility] Work Phone: Start: 08-08-2024 End: 08-08-2024 ambulatory Efkarthikongronel Dodsone Facility:[facility] Start: 08-08-2024 End: 08-08-2024 ambulatory Efkarthikmarysvilleronel Maline Facility:[facility] Start: 06-05-2024 End: 06-05-2024 Subsequent hospital visit by physician [facility] Work Phone: Radiology Comment on above: Acute cough [R05.1] Start: 06-05-2024 End: 06-05-2024 ambulatory LEONIDAS DODSONE Facility[facility] Start: 06-05-2024 End: 06-05-2024 Patient encounter procedure Roxana BONNER Work Phone: [facility] Comment on above: Acute cough (Primary Dx); COPD with exacerbation (HCC) Start: 03-14-2024 ambulatory Leonidas Traore Facili ty:[facility] Start: 12-20-2023 End: 12-20-2023 Office outpatient new 30 minutes Joanne Neal MD Work Phone: [facility] Comment on above: Primary osteoarthrit is of left hip (Primary Dx); Left hip pain Start: 12-20-2023 End: 12-20-2023 Subsequent hospital visit by physician Joanne Neal MD Work Phone: [facility] Rad Comment on above: Left hip pain Start: 12-20-2023 End: 12-20-2023 ambulatory [place] Start: 12-12-2023 End: 12-12-2023 ambulatory Leonidas Traore Facility:[facility] Start: 12-06-2023 ambulatory Edilia BONNER Facility:[facility] Start: 11-22-2023 End: 11-22-2023 ambulatory Leonidas Traore Facility:[facility] Start: 11-11-2023 Non-patient / Non-visit Dr. Kyung Traore Work Phone: [facility] Work Phone: Start: 11-11-2023 Non-patient / Non-visit Dr. Kyung Traore Work Phone: [facility] Start: 11-10-2023 Non-patient / Non-visit Dr. Kyung Traore Work Phone: [facility] Work Phone: Start: 11-10-2023 End: 11-11-2023 Evaluation and management of inpatient Dr. Leonidas Traore Work Phone: [facility]-Progressive Care Unit Work Phone: Start: 11-10-2023 End: 11-11-[address] Leonidas Traore Work Phone: [facility] Work Phone: Start: 10-31-[address] Makeda Traore Work Phone: [facility] Start: 10-31-2023 End: 10-31-[address] Leonidas Traore Work Phone: [facility] Work Phone: Start: 10-31-2023 End: 10-31-[address] Leonidas Traore Work Phone: [facility] Internal Medicine Work Phone: Start: 07-14-2023 End: 07-14-[address] Leonidas Traore Work Phone: [facility] Work Phone: Start: 05-28-2022 Non-patient / Non-visit Dr. Kyung Traore Work Phone: [facility] Start: 05-26-2022 End: 05-26-[address] Leonidas Traore Work Phone: [facility] Work Phone: Start: 05-26-2022 End: 05-26-[address] Leonidas Traore Work Phone: [facility] Start: 05-25-2022 Non-patient / Non-visit Dr. Kyung Traore Work Phone: [facility] Start: 05-25-2022 End: 05-25-[address] Leonidas Traore Work Phone: [facility] Work Phone: Start: 05-25-2022 End: 05-25-[address] Leonidas Traore Work Phone: [facility] Start: 05-04-2022 End: 05-04-[address] Leonidas Traore Work Phone: [facility] Medicine [facility] Start: 05-03-2022 End: 05-03-[address] Leonidas Traore Work Phone: [facility]Laboratory Start: 04-29-2022 End: 04-29-[address] Leonidas Traore Work Phone: [facility] Start: 10-08-2021 End: 10-08-2021 Patient encounter procedure Abran Granados MD Work Phone: [facility] Comment on above: Impacted cerumen of right ear (Primary Dx) Start: 03-05-[address] Makeda Traore Work Phone: [facility] Start: 06-20-2020 End: 06-20-2020 Office outpatient visit 15 minutes Kelly Olvera [facility] Start: 06-20-2020 Review Kelly Olvera [facility] Start: 11-30-2019 End: 11-30-2019 Subsequent hospital visit by physician Guido Bishop Work Phone: [facility] General Surgery Comment on above: Closed fracture of p roximal end of left humerus with routine healing, unspecified fracture morphology, subsequent encounter (Primary Dx) Start: 11-29-2019 End: 11-29-2019 Subsequent hospital visit by physician Guido Bishop Work Phone: [facility] Pre-Admit Testing Comment on above: Arrived Start: 05-30-2019 End: 05-30-2019 Phone Encounter Kelly Olvera [facility] Start: 05-08-2019 End: 05-08-2019 Phone Encounter Kelly Olvera [facility] Start: 05-08-2019 End: 05-08-2019 Phone Encounter Kelly Olvera [facility] Start: 05-03-2019 End: 05-03-2019 Office outpatient visit 15 minutes Kelly Olvera [facility] Internal Medicine Start: 02-19-2019 End: 02-19-2019 Office outpatient new 45 minutes Kelly Olvera [facility] Internal Medicine Procedures Date Procedure Procedure Detail Performing Clinician Start: 08-31-[address] Leonidas Traore MD Work Phone: Start: 08-08-[address] Leonidas Traore MD Work Phone: Start: 06-05-2024 Radiologic exam chest 2 views Krisroxanne Garcia PA Work Phone: Start: 12-20-2023 Radex hip unilateral with pelvis 2-3 views Joanne Neal MD Work Phone: Start: 11-10-2023 MRI of brain without contrast Dr. Leonidas Traore Work Phone: Start: 11-10-2023 CT angiography of head and neck Dr. Leonidas Traore Work Phone: Start: 11-10-2023 CT of head without contrast Dr. Leonidas Traore Work Phone: Start: 11-10-2023 Plain chest X-ray Dr. Leonidas Traore Work Phone: Start: 05-26-[address] Leonidas Traore Work Phone: Start: 05-03-2022 Plain chest X-ray Dr. Leonidas Traore Work Phone: Start: 12-14-2021 End: 12-15-2021 Internal Medicine Office Visit Procedure Note: See Note; NOTES: [facility] [place] [address] OFFICE VISIT Date of Service: 12/14/21 MR#: [id number] Acct: [id number] Name: GIOVANNI LOMAX Rep #: [id number] : 1955 Provider: Dr. 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 Chief Complaint: Establish care Is patient in pain?: No Allergies No Known Allergies Allergy (Verified 12/14/21 15:21) Medications aspirin 81 mg PO DAILY@0800 #30 tab 01/12/19 [Rx Confirmed 03/05/21] nitroglycerin 0.4 mg sublingual tablet 0.4 mg SUBLINGUAL Q5M PRN #25 tab 02/08/19 [Rx Confirmed 12/14/21] albuterol sulfate 1 - 2 puff INHALATION Q6H PRN PRN 06/28/19 [History Confirmed 03/05/21] pramipexole 1.5 mg PO QHS 06/28/19 [History Confirmed 12/14/21] hydrochlorothiazide 25 mg tablet 25 mg PO DAILY #90 tablet 10/30/20 [Rx Confirmed 03/05/21] clopidogrel 75 mg tablet 75 mg PO DAILY #90 tab 01/09/21 [Rx Confirmed 03/05/21] losartan 100 mg tablet 100 mg PO DAILY #90 tab 01/15/21 [Rx Confirmed 03/05/21] atorvastatin 80 mg tablet 80 mg PO QHS #90 tab 11/06/21 [Rx] metoprolol tartrate 25 mg tablet 25 mg PO BID #180 tab 11/06/21 [Rx] amlodipine 10 mg tablet 10 mg PO DAILY 12/14/21 [History Confirmed 12/14/21] duloxetine 30 mg capsule,delayed release 30 mg PO BID #60 cap 12/14/21 [Rx Confirmed 12/14/21] Post menopausal: Yes PFSH Medical History (Updated 12/14/21 @ 17:[address] Leonidas Traore MD) Anxiety and depression Atherosclerotic heart disease of robinson coronary artery without angina pectoris Chronic pain COPD (chronic obstructive pulmonary disease) Depression Fracture History of fracture of clavicle Hyperlipidemia Hypertension Left hand pain Osteoporosis Pre-op chest exam ST elevation myocardial infarction (STEMI) Surgical History (Updated 12/14/21 @ 15:29 by Melinda Jordan) History of hysterectomy History of oophorectomy History of shoulder surgery History of tonsillectomy Stented coronary artery (01/10/19) Family History (Updated 12/14/21 @ 15:22 by Melinda Jordan) Father , 52 Myocardial infarction Heart disease Hyperlipemia Brother Myocardial infarction CAD (coronary artery disease) CABG and stents Mother Arthritis Depression Osteoporosis Seizures Son Suicide Depression Other Cancer Social History (Updated 12/14/21 @ 15:26 by Melinda Jordan) Smoking Status: Current every day smoker Tobacco: How many years used: 50 alcohol intake: current alcohol intake frequency: holidays/special occasions only Alcohol type: wine substance use type: marijuana caffeine: Yes Type: coffee Number of servings: 3 what type of physical activity do you participate in: none HPI HPI Chief Complaint: Establish care Details: GIOVANNI LOMAX, is a 66 F who presents to the office today to establish acre. Also has some concerns. Chronic history of hypertension. Has not checked her blood pressure at home in months. She states that her blood pressure has been difficult to control. Initial blood pressure in office at 190/130mmHg. Repeat after rest came down to 160/110mmHg. She reports compliance with her medications and states that she has taken it today as prescribed. Chronic tobacco use. She reports worsening shortness of breath with activity. Documented history of COPD but does not believe she has had a PFT done. She states that she is trying to cut back on her tobacco use. Down from 2 packs a day to 1/2 a pack. She also reports a chronic history of anxiety and depression which worsened following the loss if her last child by suicide a few years ago. No suicidal ideations or attempts. She is currently not on any medication. History of chronic pain. Several joint injuries due to the nature of her job. Left hand pain and swelling. She believes that this has developed over months. Concerned about Dupuytren's contracture. ROS Const Constitutional: No body ache, chills, excessive sweating, fatigue, fever(s), frequent falls, headache(s), snoring, weakness, weight change, sleep problems or change in appetite Eyes Eyes: No blurry vision, change in vision, eye pain or Light sensitivity ENT ENT: No abnormal hearing, ear or mastoid pain, tinnitus, nasal congestion, headache(s), neck pain or sore throat Resp Respiratory: No cough, shortness of breath, snoring or wheezing Cardio Cardiology: No chest pain at rest, chest pain with exertion, excessive sweating, shortness of breath, dyspnea on exertion, lightheadedness, orthopnea or palpitations Gastro GI: No abdominal pain, change in bowel habits, constipation, cramping, diarrhea, nausea/dyspepsia or vomiting Genitourinary-Female: No burning urination, painful urination, urinary incontinence, urinary frequency, abnormal vaginal bleeding or pelvic pain Musc Musculoskeletal: No abnormal gait, joint pain, back pain, limited range of motion, neck pain, numbness or tingling Skin Skin: No dry skin, redness, lesions, itchy eyes, rash or wounds Neuro Neurology: No abnormal gait, abnormal hearing, abnormal speech, dizziness, weakness, frequent falls, headache(s), memory loss, numbness or tingling Psych Psychiatric: No anxiety, No change in appetite, No depression, No memory loss and No Thoughts of harming yourself/Others Endo Endocrine: No cold intolerance, excessive sweating, fatigue, flushing, heat intolerance, increased thirst/drinking, increased hunger or weight change Aller/Imm Allergy/Immunologic: No itchy eyes, seasonal allergy symptoms, hives or wheezing Chau/Lymp Hematologic/Lymphatic: No easy bleeding, easy bruising or enlarged lymph nodes Exam Const General: cooperative, comfortable and no acute distress Orientation: alert, awake and oriented x3 [facility] Head: normal to inspection, normocephalic and atraumatic Ears: hearing grossly normal bilaterally Neck Neck: normal visual inspection, full ROM and no lymphadenopathy Neck mass: No Thyroid: thyroid normal Resp Effort Inspection: normal respiratory effort and able to speak in complete sentences Auscultation: Bilateral: Clear to Auscultation Cardio Rate: regular rate Rhythm: regular rhythm Heart Sounds: S1 normal and S2 normal GI Palpation: soft (Nontender, no palpable organomegaly) Neuro General: patient alert, patient awake, patient oriented x3, moves all extremities and CN's II-XI intact bilaterally Extrem General: no pedal edema Psych Appearance: grossly normal Mental Status: mental status grossly normal Mood: congruent mood Affect: normal affect Coding Level of Care Code Off vis,new,level 4 Diagnoses Hypertension I10 Hypertension type: essential hypertension COPD (chronic obstructive pulmonary disease) J44.9 Depression F32.A Anxiety and depression F41.9; F32.A Left hand pain M79.642 Assessment and Plan Assessment and Plan (1) Hypertension: Status: Chronic Qualifiers: Hypertension type: essential hypertension Qualified Code(s): I10 - Essential (primary) hypertension Orders: Orders: Comprehensive Metabolic Profil 12/14/21 CBC W/Diff, Automated 12/14/21 Lipid Profile 12/14/21 Plan - Dr. Leonidas Traore MD: Not optimally controlled. She however also states that she has had a stressful day so far. Her numbers did improve with rest as above... She was advised to monitor it daily and update office by tuesday with her reading. She was also advised to call sooner if she notes significantly elevated readings. She voiced understanding. Lifestyle and dietary modifications also recommended. Follow up in 1 month (2) COPD (chronic obstructive pulmonary disease): Status: Chronic Orders: Orders: Pulmonary Function Test (Comp) 12/14/21 Plan - Dr. Leonidas Traore MD: Suspected given her signifcant tobacco use. PFT ordered. Will send in maintenance inhaler after review. Continue albuterol as needed. (3) Depression: Status: Chronic Orders: Orders: Thyroid Stim Hormone (TSH) 12/14/21 T4 Free Direct 12/14/21 Plan - Dr. Leonidas Traore MD: Chronic and has worsened following the loss of her son by suicide a few years ago. No suicidal ideations or attempts. Due to chronic pain as well, will start on Cymbalta. Instructions given on how to.Labs Thyroid studies also ordered, will review (4) Anxiety and depression: Status: Chronic Orders: Orders: Thyroid Stim Hormone (TSH) 12/14/21 T4 Free Direct 12/14/21 Plan - Dr. Leonidas Traore MD: Plan as above (5) Left hand pain: Status: Acute Orders: Referrals: Orthopedics Plan - Dr. Leonidas Traore MD: Concern for Dupuytren's contracture, referred to [facility]. This note was generated with [employer] software. It may contain incorrect words, spelling, and punctuation that were not noted in checking the note before signing. Plan Details Other Medications: New: duloxetine 30 mg PO BID 60 caps 1RF 12/15/21 1308 <Electronically signed by Leonidas Traore MD> Date Leonidas Traore MD Cosigner Signature: Date (if applicable) CC: Kelly Anil DO Work Phone: Start: 03-05-2021 End: 03-05-2021 Cardiology Visit Report Comments: See Note; NOTES: [facility] [address] [place] [address]. [address] [place] [address] OFFICE VISIT Date of Service: 03/05/21 MR#: [id number] Acct: [id number] Name: GIOVANNI LOMAX Rep #: [id number] : 1955 Provider: Dr. Michael benson MD Age/Sex: 66/F Location: [facility] Status: Signed HPI HPI History of Present Illness Details: This is a 66-year-old white female who presents today for outpatient cardiovascular follow- up with history of underlying CAD status post MN status post PTCA/stent superimposed on hyperlipidemia and hypertension pending upcoming dental/oral surgery who has been referred back for additional preoperative assessment. She has previously been followed by my former colleague Dr. Tristen Mchugh. At the present time she states she does have chest twinges as she points to the center and/or center right of her chest. She states that these twinges come and go at various times. They can feel somewhat different from what she experienced when she had her previous MIs. She has not had to use her nitroglycerin sublingual for these events. She has chronic shortness of breath and dyspnea which she attributes to her tobacco use. She states she occasionally hears herself wheezing. She has not had orthopnea or PND or ongoing peripheral pitting edema. There has been no near syncope or syncope. She had an ECG in the office today. She was noted to have sinus rhythm with no acute ECG changes. She has undergone previous noninvasive and invasive evaluation in 2019. The results of her studies are noted below. She had lipid labs performed in July of this year. Her total cholesterol was 153 with an LDL of 82 and an HDL of 53. Her triglycerides were 88. 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 Accompanied by: Self Allergies adhesive Adverse Reaction (Intermediate, Verified 03/05/21 11:15) Rash Medications aspirin 81 mg PO DAILY@0800 #30 tab 01/12/19 [Rx Confirmed 03/05/21] nitroglycerin 0.4 mg sublingual tablet 0.4 mg SUBLINGUAL Q5M PRN #25 tab 02/08/19 [Rx Confirmed 03/05/21] albuterol sulfate 1 - 2 puff INHALATION Q6H PRN PRN 06/28/19 [History Confirmed 03/05/21] pramipexole 1.5 mg PO QHS 06/28/19 [History Confirmed 03/05/21] trazodone 50 mg PO QHS PRN 06/28/19 [History Confirmed 03/05/21] atorvastatin 80 mg tablet 80 mg PO QHS #90 tab 10/30/20 [Rx Confirmed 03/05/21] hydrochlorothiazide 25 mg tablet 25 mg PO DAILY #90 tablet 10/30/20 [Rx Confirmed 03/05/21] metoprolol tartrate 25 mg tablet 25 mg PO BID #180 tab 10/30/20 [Rx Confirmed 03/05/21] amlodipine 5 mg tablet See Rx Instructions .ROUTE .COMPLEX #90 tab 11/14/20 [Rx Confirmed 03/05/21] clopidogrel 75 mg tablet 75 mg PO DAILY #90 tab 01/09/21 [Rx Confirmed 03/05/21] losartan 100 mg tablet 100 mg PO DAILY #90 tab 01/15/21 [Rx Confirmed 03/05/21] [facility] Medical History (Updated 03/05/21 @ 11:[address] Michael Zheng MD) Atherosclerotic heart disease of robinson coronary artery without angina pectoris Hyperlipidemia Hypertension Pre-op chest exam ST elevation myocardial infarction (STEMI) Surgical History Stented coronary artery (01/10/19) Family History Father , 52 Myocardial infarction Brother Myocardial infarction CAD (coronary artery disease) CABG and stents Social History Smoking Status: Current every day smoker alcohol intake: never substance use type: marijuana caffeine: Yes Type: coffee Number of servings: 3 ROS Const Const: Positive for fatigue (continues); Negative for weakness, frequent falls, excessive sweating, weight gain or weight loss Eyes Eyes: Negative for transient loss of vision, blurry vision or change in vision ENT ENT: Negative for dizziness or balance problems Cardio Chest Pain: Yes (occasional) Character: dull Onset: at rest and exercise Location: right chest Duration: brief Palpitations: No Edema: None Muscle aches with walking: None Resp Respiratory: Positive for SOB with activity (baseline; current everyday smoker) and Cough (dry/occasional productive); Negative for SOB at rest GI GI: Negative vomiting or vomiting blood/hematemesis : Negative for hematuria Musc Musc: Negative for muscle aches/ myalgia, muscle weakness, joint pain or balance problems Skin Skin: Negative non-healing lesions or rash Neuro Neuro: Negative for dizziness, lightheadedness, orthostatic symptoms, frequent falls, weakness or blurry vision Chau Hematologic/Lymphatic: Negative for easy bleeding Endo Endo: Positive for fatigue (continues); Negative for excessive sweating Psych Psych: Negative for anxiety or depression Allergy Allergy/Immunology: Negative for hives and Negative for rash Cardiology Exam Const Appearance: cooperative, healthy appearing, comfortable, no acute distress, well developed and well groomed Nutritional Appearance: overweight Orientation: alert, awake and oriented x3 Head Head: normal to inspection, normocephalic and atraumatic Ears: hearing grossly normal bilaterally Nose: external nose normal Face and Sinus: face symmetric Eyes Eyelids: eyelids normal Conjunctivae: conjunctivae normal Pupils: PERRL EOM: EOM intact bilaterally Neck Neck: normal visual inspection and full ROM Carotids: normal carotid upstroke Chest Chest inspection: normal inspection of the chest, symmetric chest movement and normal respiratory effort Auscultation: Bilateral: Expiratory Wheezes Cardio Palpation: normal PMI Rate: regular rate Rhythm: regular rhythm Heart sounds: S1 normal and S2 normal GI GI: normal to inspection and bowel sounds present Neuro General: patient alert, patient awake, patient oriented x3 and moves all extremities Skin Skin: no rashes or lesions noted Extremities Pulses: Normal: Right Radial Pulse and Left Radial Pulse Lower Extremity Edema: None: Bilateral Psych Psychological: normal affect Assessment and Plan Assessment and Plan (1) Atherosclerotic heart disease of robinson coronary artery without angina pectoris: Status: Chronic Qualifiers: [place] vs. transplanted heart: robinson heart Qualified Code(s): I25.10 - Atherosclerotic heart disease of robinson coronary artery without angina pectoris Comment: Segmented LV systolic dysfunction- Mild LVEF: by LV gram 55 % Single vessel CAD of the RCA Non obstructive coronary arteries Acute occlusion of proximal RCA upstream from stent. Successful PTCA/EMPERATRIZ of occluded proximal RCA, upstream from previous stent, utilizing a 3.0 x 16 promus Synergy, post dilated with a 3.0, 3.25 and 3.5 x 12 NC Balloon. 100%-->0%, no dissection. Pt had less than optimal stent deployment at end of first case despite 3.25 NC Balloon. 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 Emergent reprep and relook showed acute stent thrombosis. Emergent PTCA with 2.0 x 12 balloon, followed by Foosland catheter, followed by IVUS performed. Pt given Integrillin bolus and gtt, followed by post stent dilatation with a 3.0 x 10 Angiosculpt, followed by a 3.5 x 12 NC balloon. Repeat IVUS confirmed appropriate stent deployment and no resolution of scar tissue protruding through stent struts. Orders: Orders: 12 Lead EKG performed by [facility] Today Echo Complete Today Nuclear Stress Test - Treadmil Today Plan - Dr. Michael Zheng MD: At the present time she does have a history of CAD. She has had some symptoms which are concerning but not necessarily identical to the symptoms she had prior to her previous acute coronary syndrome events. Based upon her history, her symptoms, and the need for upcoming noncardiac surgery, it is felt reasonable she be reassessed for any obvious evidence of ongoing myocardial ischemia that would warrant further evaluation care. This would include an exercise tolerance test/imaging study. Depending upon the results she may or may not need further invasive evaluation and/or care. (2) Stented coronary artery: Status: Chronic Comment: Acute occlusion of proximal RCA upstream from stent. Successful PTCA/EMPERATRIZ of occluded proximal RCA, upstream from previous stent, utilizing a 3.0 x 16 promus Synergy, post dilated with a 3.0, 3.25 and 3.5 x 12 NC Balloon. 100%-->0%, no dissection. Pt had less than optimal stent deployment at end of first case despite 3.25 NC Balloon. 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 Emergent reprep and relook showed acute stent thrombosis. Emergent PTCA with 2.0 x 12 balloon, followed by [place]os[place] catheter, followed by IVUS performed. Pt given Integrillin bolus and gtt, followed by post stent dilatation with a 3.0 x 10 Angiosculpt, followed by a 3.5 x 12 NC balloon. Repeat IVUS confirmed appropriate stent deployment and no resolution of scar tissue protruding through stent struts. Orders: Orders: 12 Lead EKG performed by [facility] Today Echo Complete Today Nuclear Stress Test - Treadmil Today Plan - Dr. Michael Zheng MD: She does have a history of PCI as noted above. Again she will undergo repeat evaluation as described. (3) Hyperlipidemia: Status: Chronic Qualifiers: Hyperlipidemia type: unspecified Qualified Code(s): E78.5 - Hyperlipidemia, unspecified Orders: Orders: Echo Complete Today Nuclear Stress Test - Treadmil Today Plan - Dr. Michael Zheng MD: Her lip is reviewed. They appear to be under good control. (4) Hypertension: Status: Chronic Qualifiers: Hypertension type: essential hypertension Qualified Code(s): I10 - Essential (primary) hypertension Orders: Orders: Echo Complete Today Nuclear Stress Test - Treadmil Today Plan - Dr. Michael Zheng MD: She states she has not taken her medications this day. Not she believes this is why her blood pressure somewhat elevated. She will continue her medications and she was asked to monitor her blood pressure. (5) Pre-op chest exam: Status: Acute Orders: Orders: Echo Complete Today Nuclear Stress Test - Treadmil Today Plan - Dr. Michael Zheng MD: She does have a upcoming dental evaluation through [facility]. According to the request she is going to have surgical extractions and osseous surgery which would include local anesthesia with epinephrine. At the present time she will proceed with her noninvasive cardiovascular evaluation. Depending upon her findings she may or may not need further cardiac evaluation prior to her dental surgery. When it does come time for her dental surgery she will need to have close observation of her heart rate, rhythm, and blood pressure. An attempt should be made to avoid significant fluctuations in her vital signs as well as her volume status during and following her procedure. Hopefully she can continue her medication in and around the time of her procedure with the exception of temporary interruption of her antiplatelet therapy such as clopidogrel/Plavix. She would be at an increased risk for adverse cardiovascular events from noncardiac surgery based upon her cardiovascular disease history. Hopefully if she is clinically stable and her studies do not demonstrate ongoing cardiovascular concerns that warrant further evaluation care she will be able to proceed with her surgery and with close monitoring keep her cardiovascular risks at a minimum. Plan Details Additional Comments: The above was discussed with her and she was agreeable to this approach. Thank you for allowing me to participate in the care of your patient. Please don't hesitate to call if any issues arise. This note was generated using a voice recognition system and there may be incorrect words, spelling or punctuation that were not noted when reviewing the office note prior to saving. Follow Up: 6 Months (PFM) COVID (Procedure Consent) Procedure Criteria Procedure Criteria: Yes Elective The surgeon/proceduralist and patient have discussed in detail the risk of exposure to and/or potential harm posed by the COVID-19 virus with having a surgery/procedure at this time versus the risk of??? delaying the surgery/procedure. It is not possible to know either the risk of delaying the surgery or procedure or chance of getting an infection with perfect accuracy, but a joint decision was made between the patient and the surgeon/proceduralist ???to proceed at this time with the scheduled surgery/procedure as indicated on the consent form. Coding Level of Care Code Off vis,est,level 5 Diagnoses Atherosclerotic heart disease of robinson coronary artery without angina pectoris I25.10 [place] vs. transplanted heart: robinson heart Stented coronary artery Z95.5 Hyperlipidemia E78.5 Hyperlipidemia type: unspecified Hypertension I10 Hypertension type: essential hypertension Pre-op chest exam Z01.811 Coding Level of Care Code Off vis,est,level 5 Diagnoses Atherosclerotic heart disease of robinson coronary artery without angina pectoris I25.10 [place] vs. transplanted heart: robinson heart Stented coronary artery Z95.5 Hyperlipidemia E78.5 Hyperlipidemia type: unspecified Hypertension I10 Hypertension type: essential hypertension Pre-op chest exam Z01.811 Supplemental Info Supplemental Information Echocardiogram 01/10/2019: The estimated ejection fraction is 60 %. Stage 1 diastolic dysfunction. Posterior-Basal: Mildly hypokinetic Unable to estimate RV systolic pressure due to insufficient tricuspid regurgitant envelope. Compared to echo report dated 09/29/2017, LV function is preserved with new mild proximal posterior hypokinesis. Echocardiogram June 2019: The estimated ejection fraction is 65 %. Stage 1 diastolic dysfunction. Trivial tricuspid valve insufficiency. Right ventricular systolic pressure estimated to be 23 mmHg. Compared to echo report dated 01/10/2019, LV function has improved from 60% to 65%. Cardiac Cath 01/2019: Segmented LV systolic dysfunction- Mild LVEF: by LV gram 55 % Single vessel CAD of the RCA Non obstructive coronary arteries Acute occlusion of proximal RCA upstream from stent. Successful PTCA/EMPERATRIZ of occluded proximal RCA, upstream from previous stent, utilizing a 3.0 x 16 promus Synergy, post dilated with a 3.0, 3.25 and 3.5 x 12 NC Balloon. 100%-->0%, no dissection. Pt had less than optimal stent deployment at end of first case despite 3.25 NC Balloon. 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 Emergent reprep and relook showed acute stent thrombosis. Emergent PTCA with 2.0 x 12 balloon, followed by Foosland catheter, followed by IVUS performed. Pt given Integrillin bolus and gtt, followed by post stent dilatation with a 3.0 x 10 Angiosculpt, followed by a 3.5 x 12 NC balloon. Repeat IVUS confirmed appropriate stent deployment and no resolution of scar tissue protruding through stent struts. Labs: LDL Cholesterol 82 mg/dL (0-130) HDL Cholesterol 53 mg/dL (40-) Triglycerides 88 mg/dL (-199) VLDL Cholesterol 18 mg/dL (5-40) Diagnostics: Electrocardiogram Echocardiogram Chest X-Ray Pulmonary: No Data to Display 03/05/21 1154 <Electronically signed by Michael Zheng MD> Date Michael Zheng MD Cosigner Signature: Date (if applicable) CC: Dr. Kelly Olvera, DO Kelly Olvera DO Work Phone: Start: 10-30-2020 End: 10-30-2020 Cardiology Visit Report Comments: See Note; NOTES: [facility] [address] [place] [address] OFFICE VISIT Date of Service: 10/30/20 MR#: [id number] Acct: [id number] Name: GIOVANNI LOMAX Rep #: [id number] : 1955 Provider: KAILEY Hernandez Age/Sex: 65/F Location: [facility] Status: Signed HPI HPI History of Present Illness Details: This is a 65-year-old female that presents here today for a cardiovascular follow up. She has a history of coronary artery disease. In January 2019, she had an inferior lateral wall myocardial infarction. She underwent angioplasty of her proximal RCA with an overlapping into the previous RCA stent that was done approximately 7 years ago. 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 She was noted to have acute in-stent thrombosis she underwent emergent angioplasty, thrombectomy and IVUS evaluation with additional post stent dilatation. She does have a history of hypertension, hyperlipidemia and tobacco abuse. At her last office visit we had increased her amlodipine to 10 mg a day. Pt denies chest, arm, jaw, or neck discomfort. His exercise tolerance is stable. Pt denies symptoms of palpitations, lightheadedness, dizziness, near syncopal or syncopal episodes. Pt denies edema or claudication issues. Pt. denies orthopnea, PND, fever, chills, blood in urine, blood in stool, myalgia, or unexplainable fatigue. 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 [Ecotrin] 81 mg PO DAILY@0800 #30 tab 01/12/19 [Rx Confirmed 10/30/20] nitroglycerin 0.4 mg sublingual tablet 0.4 mg SUBLINGUAL Q5M PRN #25 tab 02/08/19 [Rx Confirmed 10/30/20] Albuterol IH (ProAir) [Proair Hfa (SP)Vent Pts] 1 - 2 puff INHALATION Q6H PRN PRN 06/28/19 [History Confirmed 10/30/20] Pramipexole Di-HCl [Pramipexole ER] 1.5 mg PO QHS 06/28/19 [History Confirmed 10/30/20] traZODone [Desyrel] 50 mg PO QHS PRN 06/28/19 [History Confirmed 10/30/20] clopidogrel 75 mg tablet 75 mg PO DAILY #90 tab 09/23/20 [Rx Confirmed 10/30/20] amlodipine 10 mg tablet 10 mg PO DAILY #90 tablet 10/30/20 [Rx Confirmed 10/30/20] atorvastatin 80 mg tablet 80 mg PO QHS #90 tab 10/30/20 [Rx Confirmed 10/30/20] hydrochlorothiazide 25 mg tablet 25 mg PO DAILY #90 tablet 10/30/20 [Rx Confirmed 10/30/20] losartan 100 mg tablet 100 mg PO DAILY #90 tab 10/30/20 [Rx Confirmed 10/30/20] metoprolol tartrate 25 mg tablet 25 mg PO BID #180 tab 10/30/20 [Rx Confirmed 10/30/20] Ejection fraction %: 65 to [facility] Medical History Hyperlipidemia (Chronic) Atherosclerotic heart disease of robinson coronary artery without angina pectoris (Chronic) Hypertension (Chronic) ST elevation myocardial infarction (STEMI) (Resolved) Surgical History Stented coronary artery (Chronic 01/10/19) Family History Father , 52 Myocardial infarction Brother Myocardial infarction CAD (coronary artery disease) CABG and stents Social History (Updated 10/30/20 @ 14:10 by Edilia BONNER PA) Smoking Status: Current every day smoker alcohol intake: never substance use type: marijuana caffeine: Yes Type: coffee Number of servings: 3 ROS Const Const: Positive for fatigue and weakness; negative for headache(s), frequent falls, difficulty sleeping or excessive sweating Eyes Eyes: Negative for loss of peripheral vision, transient loss of vision, blurry vision, double vision or tunnel vision ENT ENT: Negative for headache(s), dizziness, Nosebleed/epistaxis or balance problems Cardio Chest Pain: Yes (right upper chest near shoulder. Started after being knocked down by horse) Palpitations: No Edema: None Muscle aches with walking: None Resp Respiratory: Positive for SOB with activity and SOB at rest; negative for SOB orthopnea SOB lying down, Cough or paroxysmal nocturnal dyspnea Additional Details: Increased shortness of breath over last 2 weeks when she was knocked down by a horse. GI GI: Negative nausea, vomiting, heartburn or black,tarry stools : Negative for hematuria Musc Musc: Positive for joint pain; negative for muscle aches/ myalgia, muscle weakness or balance problems Skin Skin: Negative non-healing lesions, rash or unusual bruising Neuro Neuro: Positive for weakness; negative for dizziness, lightheadedness, near syncope, syncope, frequent falls, headache(s), blurry vision, double vision or lack of coordination Chau Hematologic/Lymphatic: Negative for easy bleeding or easy bruising Endo Endo: Positive for fatigue; negative for excessive sweating or increased thirst/drinking Psych Psych: Negative for anxiety or depression Allergy Allergy/Immunology: Negative for hives, Negative for rash Cardiology Exam Const Appearance: cooperative, healthy appearing, comfortable and no acute distress Nutritional Appearance: well nourished and overweight Orientation: alert, awake and oriented x3 Head Head: normal to inspection Ears: hearing grossly normal bilaterally Nose: external nose normal Face and Sinus: face symmetric Mouth: oral mucosae normal Eyes General: appearance normal, both eyes and all related structures Eyelids: eyelids normal EOM: EOM intact bilaterally Neck Neck: normal visual inspection and no JVD Carotids: normal carotid upstroke Chest Chest inspection: normal inspection of the chest, symmetric chest movement and normal respiratory effort; negative cough Auscultation: Bilateral: Clear to Auscultation Cardio Rate: regular rate Rhythm: regular rhythm Heart sounds: S1 normal and S2 normal; negative rub, gallop or murmur GI GI: normal to inspection Neuro General: alert, awake, oriented x3 and CN's II-XI intact bilaterally Skin Skin: no rashes or lesions noted Extremities Pulses: Normal: Right Posterior Tibial Pulse, Left Posterior Tibial Pulse, Right Radial Pulse, Left Radial Pulse Lower Extremity Edema: None: Bilateral Psych Psychological: normal affect Assessment Plan 1. 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 Successful PTCA/EMPERATRIZ of occluded proximal RCA, upstream from previous stent, utilizing a 3.0 x 16 promus Synergy, post dilated with a 3.0, 3.25 and 3.5 x 12 NC Balloon. 100%-->0%, no dissection. Pt had less than optimal stent deployment at end of first case despite 3.25 NC Balloon. 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 Emergent reprep and relook showed acute stent thrombosis. Emergent PTCA with 2.0 x 12 balloon, followed by Foosland catheter, followed by IVUS performed. Pt given Integrillin bolus and gtt, followed by post stent dilatation with a 3.0 x 10 Angiosculpt, followed by a 3.5 x 12 NC balloon. Repeat IVUS confirmed appropriate stent deployment and no resolution of scar tissue protruding through stent struts. Plan Stable, from a cardiac standpoint patient does not have any symptoms of angina. We will continue with aggressive factor modification 2. Essential hypertension I10 Plan Blood pressure is better controlled on current medications. Will not make any adjustments. Refills given for 90-day prescriptions. 3. Hyperlipidemia, unspecified hyperlipidemia type E78.5 Plan Recent lipid profile demonstrates total cholesterol 153, HDL 53, LDL 82. Patient will continue with current high intensity statin. Plan Detail Other Medications Changed: From: amlodipine (Norvasc) 10 mg (2 x 5 mg) PO DAILY 30 tabs 3RF To: amlodipine 10 mg PO DAILY 90 tabs 3RF Refilled: atorvastatin 80 mg PO QHS 90 tabs 3RF hydrochlorothiazide 25 mg PO DAILY 90 tabs 3RF metoprolol tartrate 25 mg PO BID 180 tabs 3RF losartan 100 mg PO DAILY 90 tabs 3RF dose increase Follow Up 10/30/20 (keep as is) Coding Level of Care Code Off vis,est,level 3 Diagnoses Atherosclerosis of robinson coronary artery of robinson heart without angina pectoris I25.10 ?[place] vs. transplanted heart: robinson heart Essential hypertension I10 ?Hypertension type: essential hypertension Hyperlipidemia, unspecified hyperlipidemia type E78.5 ?Hyperlipidemia type: unspecified Coding Level of Care Code Off vis,est,level 3 Diagnoses Atherosclerosis of robinson coronary artery of robinson heart without angina pectoris I25.10 ?[place] vs. transplanted heart: robinson heart Essential hypertension I10 ?Hypertension type: essential hypertension Hyperlipidemia, unspecified hyperlipidemia type E78.5 ?Hyperlipidemia type: unspecified Supplemental Info Supplemental Information Echocardiogram 01/10/2019: The estimated ejection fraction is 60 %. Stage 1 diastolic dysfunction. Posterior-Basal: Mildly hypokinetic Unable to estimate RV systolic pressure due to insufficient tricuspid regurgitant envelope. Compared to echo report dated 09/29/2017, LV function is preserved with new mild proximal posterior hypokinesis. Cardiac Cath 01/2019: Segmented LV systolic dysfunction- Mild LVEF: by LV gram 55 % Single vessel CAD of the RCA Non obstructive coronary arteries Acute occlusion of proximal RCA upstream from stent. Successful PTCA/EMPERATRIZ of occluded proximal RCA, upstream from previous stent, utilizing a 3.0 x 16 promus Synergy, post dilated with a 3.0, 3.25 and 3.5 x 12 NC Balloon. 100%-->0%, no dissection. Pt had less than optimal stent deployment at end of first case despite 3.25 NC Balloon. 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 Emergent reprep and relook showed acute stent thrombosis. Emergent PTCA with 2.0 x 12 balloon, followed by Foosland catheter, followed by IVUS performed. Pt given Integrillin bolus and gtt, followed by post stent dilatation with a 3.0 x 10 Angiosculpt, followed by a 3.5 x 12 NC balloon. Repeat IVUS confirmed appropriate stent deployment and no resolution of scar tissue protruding through stent struts. Echocardiogram June 2019: The estimated ejection fraction is 65 %. Stage 1 diastolic dysfunction. Trivial tricuspid valve insufficiency. Right ventricular systolic pressure estimated to be 23 mmHg. Compared to echo report dated 01/10/2019, LV function has improved from 60% to 65%. Labs LDL Cholesterol 82 mg/dL (0-130) 07/23/20 HDL Cholesterol 53 mg/dL (40-) 07/23/20 Triglycerides 88 mg/dL (-199) 07/23/20 VLDL Cholesterol 18 mg/dL (5-40) 07/23/20 Diagnostics Echocardiogram 06/28/19 10/30/20 1410 <Electronically signed by Edilia Kapoor> Date Edilia BONNER Cosigner Signature: Date (if applicable) CC: Dr. Kelly Olvera, DO Kelly Olvera DO Work Phone: Start: 09-23-2020 End: 09-23-2020 Cardiology Visit Report Comments: See Note; NOTES: [facility] [address] [place] [address] OFFICE VISIT Date of Service: 09/23/20 MR#: [id number] Acct: [id number] Name: GIOVANNI LOMAX Rep #: [id number] : 1955 Provider: JEFFREY lewis Age/Sex: 65/F Location: [facility] Status: Signed HPI HPI History of Present Illness Details: This is a 65-year-old female that presents here today for a cardiovascular follow up. She has a history of coronary artery disease. In January 2019, she had an inferior lateral wall myocardial infarction. She underwent angioplasty of her proximal RCA with an overlapping into the previous RCA stent that was done approximately 7 years ago. 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 She was noted to have acute in-stent thrombosis she underwent emergent angioplasty, thrombectomy and IVUS evaluation with additional post stent dilatation. She does have a history of hypertension, hyperlipidemia and tobacco abuse. Pt denies chest, arm, jaw, or neck discomfort. His exercise tolerance is stable. Pt denies symptoms of palpitations, lightheadedness, dizziness, near syncopal or syncopal episodes. Pt denies edema or claudication issues. Pt. denies orthopnea, PND, fever, chills, blood in urine, blood in stool, myalgia, or unexplainable fatigue. She continues with SOB and is at baseline. She states sleeping in a recliner after previous arm fracture. She states chronic cough. Intake Vital Signs 09/23/20 Height 5 ft 4 in 09/23/20 Weight: 158 lb 09/23/20 BMI 27.1 09/23/20 BP 156/86 H 09/23/20 Blood Pressure Location Lt brachial 09/23/20 Position Sitting 09/23/20 Respiration 18 09/23/20 Pulse 110 H 09/23/20 Pulse Source Monitor 09/23/20 Pulse Oximetry (%) 98 Intake Visit Reasons: 2-4 WK F/U Senior Net Software Engineer Required: No Accompanied by: None Is patient in pain?: No Allergies adhesive Adverse Reaction (Intermediate, Verified 09/23/20 10:35) Rash Medications Aspirin E.C. [Ecotrin] 81 mg PO DAILY@0800 #30 tab 01/12/19 [Rx Confirmed 09/23/20] atorvastatin 80 mg tablet 80 mg PO QHS #90 tab 02/08/19 [Rx Confirmed 09/23/20] metoprolol tartrate 25 mg tablet 25 mg PO BID #180 tab 02/08/19 [Rx Confirmed 09/23/20] nitroglycerin 0.4 mg sublingual tablet 0.4 mg SUBLINGUAL Q5M PRN #25 tab 02/08/19 [Rx Confirmed 09/23/20] Albuterol IH (ProAir) [Proair Hfa (SP)Vent Pts] 1 - 2 puff INHALATION Q6H PRN PRN 06/28/19 [History Confirmed 09/23/20] Pramipexole Di-HCl [Pramipexole ER] 1.5 mg PO QHS 06/28/19 [History Confirmed 09/23/20] traZODone [Desyrel] 50 mg PO QHS PRN 06/28/19 [History Confirmed 09/23/20] losartan 100 mg tablet 100 mg PO DAILY #90 tab 11/12/19 [Rx Confirmed 09/23/20] promethazine 25 mg tablet 25 mg PO Q6H PRN 12/10/19 [History Confirmed 09/23/20] amlodipine 5 mg tablet 10 mg PO DAILY #30 tab 09/04/20 [Rx Confirmed 09/23/20] clopidogrel 75 mg tablet 75 mg PO DAILY #90 tab 09/23/20 [Rx Confirmed 09/23/20] hydrochlorothiazide 25 mg tablet 25 mg PO DAILY #30 tab 09/23/20 [Rx Confirmed 09/23/20] PFS Medical History (Updated 09/23/20 @ 12:46 by Tracy Myers NP, [employer]IL SCIENCE TECHNICAL OFFICER-C) Hyperlipidemia (Chronic) Atherosclerotic heart disease of robinson coronary artery without angina pectoris (Chronic) Hypertension (Chronic) ST elevation myocardial infarction (STEMI) (Resolved) Surgical History Stented coronary artery (Chronic 01/10/19) Social History (Updated 09/23/20 @ 12:46 by Tracy Myers NP, SOIL SCIENCE TECHNICAL OFFICER-C) Smoking Status: Current every day smoker ROS Const Const: Negative for fatigue, weakness, body ache, fever(s) or chills ENT ENT: Negative for dizziness or Nosebleed/epistaxis Cardio Chest Pain: No Palpitations: No Edema: None Muscle aches with walking: None Resp Respiratory: Positive for SOB with activity and Cough; negative for SOB at rest, SOB orthopnea SOB lying down or paroxysmal nocturnal dyspnea GI GI: Negative nausea, vomiting blood/hematemesis, bright, red blood in stools or black,tarry stools : Negative for hematuria or frequent nighttime urination/ nocturia Musc Musc: Negative for muscle aches/ myalgia Skin Skin: Negative non-healing lesions or rash Neuro Neuro: Negative for dizziness, lightheadedness, near syncope, syncope, orthostatic symptoms or weakness Endo Endo: Negative for fatigue Allergy Allergy/Immunology: Negative for rash Cardiology Exam Const Appearance: cooperative, healthy appearing, comfortable and no acute distress Nutritional Appearance: well nourished and overweight Orientation: alert, awake and oriented x3 Head Head: normal to inspection Ears: hearing grossly normal bilaterally Nose: external nose normal Face and Sinus: face symmetric Mouth: oral mucosae normal Eyes General: appearance normal, both eyes and all related structures Eyelids: eyelids normal EOM: EOM intact bilaterally Neck Neck: normal visual inspection and no JVD Carotids: normal carotid upstroke Chest Chest inspection: normal inspection of the chest, symmetric chest movement and normal respiratory effort; negative cough Auscultation: Bilateral: Clear to Auscultation Cardio Rate: regular rate Rhythm: regular rhythm Heart sounds: S1 normal and S2 normal; negative rub, gallop or murmur GI GI: normal to inspection Neuro General: alert, awake, oriented x3 and CN's II-XI intact bilaterally Skin Skin: no rashes or lesions noted Extremities Pulses: Normal: Right Posterior Tibial Pulse, Left Posterior Tibial Pulse, Right Radial Pulse, Left Radial Pulse Lower Extremity Edema: None: Bilateral Psych Psychological: normal affect Assessment Plan 1. 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 Successful PTCA/EMPERATRIZ of occluded proximal RCA, upstream from previous stent, utilizing a 3.0 x 16 promus Synergy, post dilated with a 3.0, 3.25 and 3.5 x 12 NC Balloon. 100%-->0%, no dissection. Pt had less than optimal stent deployment at end of first case despite 3.25 NC Balloon. 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 Emergent reprep and relook showed acute stent thrombosis. Emergent PTCA with 2.0 x 12 balloon, followed by Foosland catheter, followed by IVUS performed. Pt given Integrillin bolus and gtt, followed by post stent dilatation with a 3.0 x 10 Angiosculpt, followed by a 3.5 x 12 NC balloon. Repeat IVUS confirmed appropriate stent deployment and no resolution of scar tissue protruding through stent struts. Plan She denies any chest, arm, jaw, or neck discomfort suggestive of angina. Her shortness of breath per her account appears to be at baseline. She does not feel this to be worsening. If her shortness of breath changes or progresses, we can consider reevaluation with stress test. Her most recent echocardiogram in June 2019 showed ejection fraction of 65% and stage I diastolic dysfunction. RVSP was noted be 23 mmHg. She declines EKG today. Her fast heart rate is thought to be related to recent cigarette prior to office visit. 2. Stented coronary artery Z95.5 Acute occlusion of proximal RCA upstream from stent. Successful PTCA/EMPERATRIZ of occluded proximal RCA, upstream from previous stent, utilizing a 3.0 x 16 promus Synergy, post dilated with a 3.0, 3.25 and 3.5 x 12 NC Balloon. 100%-->0%, no dissection. Pt had less than optimal stent deployment at end of first case despite 3.25 NC Balloon. 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 Emergent reprep and relook showed acute stent thrombosis. Emergent PTCA with 2.0 x 12 balloon, followed by Foosland catheter, followed by IVUS performed. Pt given Integrillin bolus and gtt, followed by post stent dilatation with a 3.0 x 10 Angiosculpt, followed by a 3.5 x 12 NC balloon. Repeat IVUS confirmed appropriate stent deployment and no resolution of scar tissue protruding through stent struts. Plan She continue current medical therapy which includes amlodipine, aspirin, atorvastatin, Plavix, losartan, and metoprolol. She will continue with risk factor and lifestyle modification. 3. Essential hypertension I10 Plan This is an ongoing concern. Her blood pressure cuff was noted be 10 points higher than office blood pressure reading. She was asked to begin hydrochlorothiazide medication. If her blood pressure remains elevated, we could consider changing metoprolol to Coreg. She was on Coreg previously, but it is unclear at this time as to why this was discontinued or changed. She was asked to monitor blood pressure routinely and present to the office in approximately 2 to 4 weeks to evaluate overall progress for further recommendation. 4. Hyperlipidemia, unspecified hyperlipidemia type E78.5 Plan Lipid panel from 07/23/2020 showed Cholesterol: 153, HDL: 53, LDL: 82, and Triglycerides: 88. She continue current high-dose statin medication, atorvastatin 80 mg p.o. nightly. Plan Detail Other Medications New: hydrochlorothiazide 25 mg PO DAILY 30 tabs 12RF Refilled: clopidogrel (Plavix) 75 mg PO DAILY 90 tabs 3RF Additional Comments Thank you for allowing us to participate in the patients plan of care, if you have any questions please do not hesitate to call. This note was generated using a voice recognition system and there may be incorrect words, spelling or punctuation that were not noted when reviewing the office note prior to saving. Follow Up 2-4 Weeks (SOIL SCIENCE TECHNICAL OFFICER/PA) Coding Level of Care Code Off vis,est,level 3 Diagnoses Atherosclerosis of robinson coronary artery of robinson heart without angina pectoris I25.10 ?[place] vs. transplanted heart: robinson heart Stented coronary artery Z95.5 Essential hypertension I10 ?Hypertension type: essential hypertension Hyperlipidemia, unspecified hyperlipidemia type E78.5 ?Hyperlipidemia type: unspecified Coding Level of Care Code Off vis,est,level 3 Diagnoses Atherosclerosis of robinson coronary artery of robinson heart without angina pectoris I25.10 ?[place] vs. transplanted heart: robinson heart Stented coronary artery Z95.5 Essential hypertension I10 ?Hypertension type: essential hypertension Hyperlipidemia, unspecified hyperlipidemia type E78.5 ?Hyperlipidemia type: unspecified Supplemental Info Supplemental Information Echocardiogram 01/10/2019: The estimated ejection fraction is 60 %. Stage 1 diastolic dysfunction. Posterior-Basal: Mildly hypokinetic Unable to estimate RV systolic pressure due to insufficient tricuspid regurgitant envelope. Compared to echo report dated 09/29/2017, LV function is preserved with new mild proximal posterior hypokinesis. Cardiac Cath 01/2019: Segmented LV systolic dysfunction- Mild LVEF: by LV gram 55 % Single vessel CAD of the RCA Non obstructive coronary arteries Acute occlusion of proximal RCA upstream from stent. Successful PTCA/EMPERATRIZ of occluded proximal RCA, upstream from previous stent, utilizing a 3.0 x 16 promus Synergy, post dilated with a 3.0, 3.25 and 3.5 x 12 NC Balloon. 100%-->0%, no dissection. Pt had less than optimal stent deployment at end of first case despite 3.25 NC Balloon. 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 Emergent reprep and relook showed acute stent thrombosis. Emergent PTCA with 2.0 x 12 balloon, followed by Foosland catheter, followed by IVUS performed. Pt given Integrillin bolus and gtt, followed by post stent dilatation with a 3.0 x 10 Angiosculpt, followed by a 3.5 x 12 NC balloon. Repeat IVUS confirmed appropriate stent deployment and no resolution of scar tissue protruding through stent struts. Echocardiogram June 2019: The estimated ejection fraction is 65 %. Stage 1 diastolic dysfunction. Trivial tricuspid valve insufficiency. Right ventricular systolic pressure estimated to be 23 mmHg. Compared to echo report dated 01/10/2019, LV function has improved from 60% to 65%. Labs LDL Cholesterol 82 mg/dL (0-130) 07/23/20 HDL Cholesterol 53 mg/dL (40-) 07/23/20 Triglycerides 88 mg/dL (-199) 07/23/20 VLDL Cholesterol 18 mg/dL (5-40) 07/23/20 Diagnostics Echocardiogram 06/28/19 09/23/20 1247 <Electronically signed by Tracy Myers NP [employer]IL SCIENCE TECHNICAL OFFICER-C> Date Tracy Myers NP [employer]IL SCIENCE TECHNICAL OFFICER-C Cosigner Signature: Date (if applicable) CC: Dr. Kelly Olvera, DO Kelly Olvera DO Work Phone: Start: 09-04-2020 End: 09-04-2020 Cardiology Visit Report Comments: See Note; NOTES: [facility] [address] [place] [address] OFFICE VISIT Date of Service: 09/04/20 MR#: [id number] Acct: [id number] Name: GIOVANNI LOMAX Rep #: [id number] : 1955 Provider: KAILEY Hernandez Age/Sex: 65/F Location: [facility] Status: Signed HPI HPI History of Present Illness Details: This is a 64-year-old female that presents here today for a cardiovascular follow up. She has a history of coronary artery disease. In January 2019 she had an inferior lateral wall myocardial infarction. She underwent angioplasty of her proximal RCA with an overlapping into the previous RCA stent that was done approximately 7 years ago. 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 She was noted to have acute in-stent thrombosis she underwent emergent angioplasty, thrombectomy and IVUS evaluation with additional post stent dilatation. She does have a history of hypertension, hyperlipidemia and tobacco abuse. She does not have any chest discomfort/heaviness/tightnes s. Her exercise tolerance is stable for her age. She does have COPD and does have SOB with exertion. She thinks that this may be worse than previous. She notes that this is also when she is carrying something with walking. She does not have any orthopnea. She denies PND. She does not have any symptoms of congestive heart failure. She does not have any palpitations that she is aware of. She does not have any lightheadedness or dizziness. She does not have any near-syncope or syncope. She does not have any lower extremity edema. She does not have any symptoms of claudication. She has not really taken her Bp at home. She does not have a list with her. Intake Vital Signs 09/04/20 Height 5 ft 5 in 09/04/20 Weight: 157 lb 09/04/20 BMI 26.1 09/04/20 BP 165/103 H 09/04/20 Blood Pressure Location Lt brachial 09/04/20 Position Sitting 09/04/20 Respiration 18 09/04/20 Pulse 93 09/04/20 Pulse Source Monitor 09/04/20 Pulse Oximetry (%) 95 Intake Visit Reasons: 6 wk fu Senior Net Software Engineer Required: No Accompanied by: None Is patient in pain?: No Allergies adhesive Adverse Reaction (Intermediate, Verified 09/04/20 14:27) Rash Medications Aspirin E.C. [Ecotrin] 81 mg PO DAILY@0800 #30 tab 01/12/19 [Rx Confirmed 09/04/20] atorvastatin 80 mg tablet 80 mg PO QHS #90 tab 02/08/19 [Rx Confirmed 09/04/20] metoprolol tartrate 25 mg tablet 25 mg PO BID #180 tab 02/08/19 [Rx Confirmed 09/04/20] nitroglycerin 0.4 mg sublingual tablet 0.4 mg SUBLINGUAL Q5M PRN #25 tab 02/08/19 [Rx Confirmed 07/23/20] Albuterol IH (ProAir) [Proair Hfa (SP)Vent Pts] 1 - 2 puff INHALATION Q6H PRN PRN 06/28/19 [History Confirmed 07/23/20] Pramipexole Di-HCl [Pramipexole ER] 1.5 mg PO QHS 06/28/19 [History Confirmed 07/23/20] traZODone [Desyrel] 50 mg PO QHS PRN 06/28/19 [History Confirmed 07/23/20] losartan 100 mg tablet 100 mg PO DAILY #90 tab 11/12/19 [Rx Confirmed 09/04/20] clopidogrel 75 mg tablet 75 mg PO DAILY #30 tab 11/28/19 [Rx Confirmed 09/04/20] promethazine 25 mg tablet 25 mg PO Q6H PRN 12/10/19 [History Confirmed 07/23/20] amlodipine 5 mg tablet 10 mg PO DAILY #30 tab 09/04/20 [Rx Confirmed 09/04/20] [facility] Medical History Hyperlipidemia (Chronic) Atherosclerotic heart disease of robinson coronary artery without angina pectoris (Chronic) Hypertension (Chronic) ST elevation myocardial infarction (STEMI) (Resolved) Surgical History Stented coronary artery (Chronic 01/10/19) Social History (Updated 09/04/20 @ 15:01 by Edilia BONNER, PA) Smoking Status: Current every day smoker ROS Const Const: Negative for fatigue, weakness, fever(s) or headache(s) Eyes Eyes: Negative for blind spots, loss of peripheral vision or transient loss of vision ENT ENT: Negative for headache(s), dizziness, tinnitus or Nosebleed/epistaxis Cardio Chest Pain: No Palpitations: No Edema: None Muscle aches with walking: None Resp Respiratory: Positive for Cough; negative for SOB with activity, SOB at rest or SOB orthopnea SOB lying down GI GI: Negative nausea, vomiting, heartburn or vomiting blood/hematemesis : Negative for hematuria Musc Musc: Negative for muscle aches/ myalgia Neuro Neuro: Negative for dizziness, lightheadedness, near syncope, syncope, orthostatic symptoms, headache(s) or weakness Chau Hematologic/Lymphatic: Negative for easy bleeding Endo Endo: Negative for fatigue Cardiology Exam Const Appearance: cooperative, healthy appearing and no acute distress Nutritional Appearance: well nourished Orientation: alert, oriented x3 and oriented to person Head Head: normal to inspection, normocephalic and atraumatic Nose: external nose normal Face and Sinus: face symmetric Mouth: oral mucosae normal Eyes General: appearance normal, both eyes and all related structures Eyelids: eyelids normal Conjunctivae: conjunctivae normal Pupils: PERRL and normal by confrontation EOM: EOM intact bilaterally Neck Neck: normal visual inspection and full ROM Carotids: normal carotid upstroke Chest Chest inspection: normal inspection of the chest Auscultation: Bilateral: Clear to Auscultation Cardio Palpation: normal PMI Rate: regular rate Rhythm: regular rhythm Heart sounds: S1 normal and S2 normal; negative rub, gallop or murmur GI GI: normal to inspection, no hepatosplenomegaly and bowel sounds present Neuro General: alert, awake, oriented x3, CN's II-XI intact bilaterally and moves all extremities Skin Skin: no rashes or lesions noted Extremities Pulses: Normal: Right Posterior Tibial Pulse, Left Posterior Tibial Pulse, Right Radial Pulse, Left Radial Pulse Lower Extremity Edema: None: Bilateral Psych Psychological: normal affect Assessment Plan 1. 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 Successful PTCA/EMPERATRIZ of occluded proximal RCA, upstream from previous stent, utilizing a 3.0 x 16 promus Synergy, post dilated with a 3.0, 3.25 and 3.5 x 12 NC Balloon. 100%-->0%, no dissection. Pt had less than optimal stent deployment at end of first case despite 3.25 NC Balloon. 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 Emergent reprep and relook showed acute stent thrombosis. Emergent PTCA with 2.0 x 12 balloon, followed by Foosland catheter, followed by IVUS performed. Pt given Integrillin bolus and gtt, followed by post stent dilatation with a 3.0 x 10 Angiosculpt, followed by a 3.5 x 12 NC balloon. Repeat IVUS confirmed appropriate stent deployment and no resolution of scar tissue protruding through stent struts. Plan Stable, from a cardiac standpoint patient does not have any symptoms of angina. Although she is having some symptoms of shortness of breath with exertion when she carries something. For now we will continue to monitor, if this does not improve we will consider a stress test. 2. Essential hypertension I10 Plan Blood pressure still elevated. Unfortunately patient did not bring a list of her medications with her. She did not bring her blood pressure cuff. She thinks at home it has been elevated. We will have her increase her Norvasc to 10 mg a day. She will follow-up with us in a few weeks. Have asked her to bring her cuff and her list with her to her next appointment. Patient Instructions Increase your amlodipine to 10 mg a day. Bring your medication list and your Bp cuff/machine into your next OV 3. Hyperlipidemia E78.5 Plan Patient is due to have her lipids checked. For now she will continue with her high intensity statin. She will have her labs done today. Plan Detail Other Medications Changed: From: amlodipine (Norvasc) 5 mg PO DAILY 30 tabs 3RF To: amlodipine (Norvasc) 10 mg (2 x 5 mg) PO DAILY 30 tabs 3RF Follow Up 2 Weeks (2-4 weeks MMM) Coding Level of Care Code Off vis,est,level 3 Diagnoses Atherosclerosis of robinson coronary artery of robinson heart without angina pectoris I25.10 ?[place] vs. transplanted heart: robinson heart Essential hypertension I10 ?Hypertension type: essential hypertension Hyperlipidemia E78.5 Coding Level of Care Code Off vis,est,level 3 Diagnoses Atherosclerosis of robinson coronary artery of robinson heart without angina pectoris I25.10 ?[place] vs. transplanted heart: robinson heart Essential hypertension I10 ?Hypertension type: essential hypertension Hyperlipidemia E78.5 Supplemental Info Supplemental Information Echocardiogram 01/10/2019: The estimated ejection fraction is 60 %. Stage 1 diastolic dysfunction. Posterior-Basal: Mildly hypokinetic Unable to estimate RV systolic pressure due to insufficient tricuspid regurgitant envelope. Compared to echo report dated 09/29/2017, LV function is preserved with new mild proximal posterior hypokinesis. Cardiac Cath 01/2019: Segmented LV systolic dysfunction- Mild LVEF: by LV gram 55 % Single vessel CAD of the RCA Non obstructive coronary arteries Acute occlusion of proximal RCA upstream from stent. Successful PTCA/EMPERATRIZ of occluded proximal RCA, upstream from previous stent, utilizing a 3.0 x 16 promus Synergy, post dilated with a 3.0, 3.25 and 3.5 x 12 NC Balloon. 100%-->0%, no dissection. Pt had less than optimal stent deployment at end of first case despite 3.25 NC Balloon. 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 Emergent reprep and relook showed acute stent thrombosis. Emergent PTCA with 2.0 x 12 balloon, followed by Foosland catheter, followed by IVUS performed. Pt given Integrillin bolus and gtt, followed by post stent dilatation with a 3.0 x 10 Angiosculpt, followed by a 3.5 x 12 NC balloon. Repeat IVUS confirmed appropriate stent deployment and no resolution of scar tissue protruding through stent struts. Echocardiogram June 2019: The estimated ejection fraction is 65 %. Stage 1 diastolic dysfunction. Trivial tricuspid valve insufficiency. Right ventricular systolic pressure estimated to be 23 mmHg. Compared to echo report dated 01/10/2019, LV function has improved from 60% to 65%. Labs LDL Cholesterol 82 mg/dL (0-130) 07/23/20 HDL Cholesterol 53 mg/dL (40-) 07/23/20 Triglycerides 88 mg/dL (-199) 07/23/20 VLDL Cholesterol 18 mg/dL (5-40) 07/23/20 Diagnostics Echocardiogram 06/28/19 09/04/20 1501 <Electronically signed by Edilia Kapoor> Date Edilia Noble Signature: Date (if applicable) CC: Dr. Kelly Olvera, DO Kelly Olvera DO Work Phone: Start: 07-23-2020 End: 07-23-2020 Cardiology Visit Report Comments: See Note; NOTES: [facility] [address] [place] [address] OFFICE VISIT Date of Service: 07/23/20 MR#: [id number]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 Illness Chief Complaint: Upper Extremity Injury Informant: Patient Occurred: Today - JPTA Mechanism/Context: Fall Context: Sudden Onset - tripped over a short fence Timing: Continuous Quality of Pain: Aching Location: left shoulder Current Severity: Severe Maximum Severity: Severe Worsened by: trying to move LUE Relieved by: remaining still Associated Symptoms: Loss of Funtion. Negative for: Parasthesia, Weakness Narrative: Patient tripped and landed on her left shoulder. [place] any other injury. [id number]. No numbness or tingling or weakness distally. No pain at the elbow or distal, just the shoulder. Has a history of a collarbone fracture, states this feels different. 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 Successful PTCA/EMPERATRIZ of occluded proximal RCA, upstream from previous stent, utilizing a 3.0 x 16 promus Synergy, post dilated with a 3.0, 3.25 and 3.5 x 12 NC Balloon. 100%-->0%, no dissection. Pt had less than optimal stent deployment at end of first case despite 3.25 NC Balloon. 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 Emergent reprep and relook showed acute stent thrombosis. Emergent PTCA with 2.0 x 12 balloon, followed by Foosland catheter, followed by IVUS performed. Pt given Integrillin bolus and gtt, followed by post stent dilatation with a 3.0 x 10 Angiosculpt, followed by a 3.5 x 12 NC balloon. Repeat IVUS confirmed appropriate stent deployment and no resolution of scar tissue protruding through stent struts. (3) Hyperlipidemia Status: Chronic (4) Hypertension Status: Chronic (5) Stented coronary artery Status: Chronic Comment: Acute occlusion of proximal RCA upstream from stent. Successful PTCA/EMPERATRIZ of occluded proximal RCA, upstream from previous stent, utilizing a 3.0 x 16 promus Synergy, post dilated with a 3.0, 3.25 and 3.5 x 12 NC Balloon. 100%-->0%, no dissection. Pt had less than optimal stent deployment at end of first case despite 3.25 NC Balloon. 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 Emergent reprep and relook showed acute stent thrombosis. Emergent PTCA with 2.0 x 12 balloon, followed by Foosland catheter, followed by IVUS performed. Pt given Integrillin bolus and gtt, followed by post stent dilatation with a 3.0 x 10 Angiosculpt, followed by a 3.5 x 12 NC balloon. Repeat IVUS confirmed appropriate stent deployment and no resolution of scar tissue protruding through stent struts. (6) Vertigo Status: Suspected Past Medical History - Allergies and Home Meds Allergies/Adverse Reactions: Allergies adhesive Adverse Reaction (Intermediate, Verified 11/12/19 14:05) Rash Primary Care Physician: Kelly Olvera DO [Primary Care Provider] - Maikol Bishop MD [STAFF PHYSICIAN] - 3-5 Days (Call for appointment; may see any of the orthopedic physicians.) Doctors: [facility] Surgical History: hysterectomy, - - Heart cath with stents. Right distal clavicle ORIF. Smoking Status: Current every day smoker Drugs: None - Family History Paternal Family History: Reports: Heart Disease - Her father from heart attack at age of 52 Review of Systems General: Denies: Chills, Fever, Sweats Eyes: Denies: Visual changes - bilaterally, Diplopia ENT: Denies: Rhinorrhea, Sore throat Cardiovascular: Denies: Chest pain, Palpitations Respiratory: Denies: Dyspnea, Cough, Dyspnea on exertion Gastrointestinal: Denies: Abdominal pain, Nausea, Vomiting, Diarrhea, Melena, Hematochezia Genitourinary: Denies: Dysuria, Hematuria, Frequency Musculoskeletal: Reports: Extremity Pain. Denies: Back pain Skin: Denies: Rash, Wounds Neurological: Denies: Headache, Weakness, Numbness Physical Exam Vital Signs/Narrative: Vital Signs 11/12/19 14:05 97.8 F 81 18 188/119 H 98 General: Well nourished, Well developed Head: Normocephalic, Atraumatic Eyes: Perrl, EOMI ENT: No Trauma, Moist Mucous Membranes Neck: Nontender, Full ROM Cardiovascular: Regular rate, Regular rhythm, No murmurs Respiratory: No distress, CTA bilaterally, Chest nontender Abdomen: Soft, Nontender, Nondistended, Normal bowel sounds Back: Nontender Extremeties: Deformity left shoulder, consistent with a probable anterior dislocation. No clavicle or acromioclavicular tenderness. Tender at the proximal humerus. No other left upper extremity tenderness. Neurovascularly intact distally. Skin: Normal color, No rash, Trauma - Ecchymosis left anterior lateral shoulder, skin intact. Neurological: Alert, Oriented x3, Cranial nerves II-XII grossly intact, Normal Strength, Normal Sensation, Normal Gait Psychological: Normal affect, Normal Mood Diagnostic/Tx/Re-eval Clinical Impression(s) from Imaging Studies Shoulder X-Ray 11/12/19 15:21 IMPRESSION: Nondisplaced comminuted fracture of the surgical neck of the humerus with extension to the greater tuberosity. Soft tissue swelling. Electronically Signed: Marty Mari, at 15:33 EDT , Service support , - Medical Decision Making X-rays as above. Scapular Y view included in the shoulder series 2 views appears to show that the humeral head is located at the glenoid fossa without an anterior dislocation, which her clinical picture suggested. The anterior displacement of the humeral shaft and associated swelling is probably responsible for this. Discussed with Dr. Bishop, he advises getting an axillary view to make sure prior to discharging her home with a sling and pain medication. This was done, dislocation is essentially ruled out as a result, and the patient will follow-up. I ensure that she has help at home, she is right-hand dominant as well. ED Disposition - Plan for ED Patient: Disposition: Home or Assisted Living Diagnosis: Closed fracture of left proximal humerus Instructions: ED Fracture Upper Extremity, ED Sling and Swathe Prescriptions: Oxycodone HCl/Acetaminophen [Percocet 5/325] 1 - 2 tab PO Q6H PRN PRN 2 Days #12 tab PRN Reason: Pain Transmission Status: Received by [id number] Referrals: Kelly Olvera DO [Primary Care Provider] - Maikol Bishop MD [STAFF PHYSICIAN] - 3-5 Days (Call for appointment; may see any of the orthopedic physicians.) What to do if you have Problems For any increased pain, shortness of breath, bleeding, nausea or vomiting, chest pain, or any unexpected problems, contact your Primary Care Provider. Call [facility] ([phone]) or report to the closest Emergency Room. Call 911 if necessary. 11/12/19 7511 <Electronically signed by Josafat Hutton MD> Date Josafat Hutton MD Cosigner Signature (If Indicated): Date CC: Kelly Aguilar Start: 07-02-2019 End: 07-02-2019 Colonoscopy Report Comments: See Note; NOTES: [facility] Medical Records Department [address] [place] [address] Colonoscopy Report MR#: [id number] Acct: [id number] Name: GIOVANNI LOMAX Rep #: [id number] : 1955 64 From: Rome Love MD PCP: Kelly Olvera DO Status: REG [facility] Patient Name: Giovanni Lomax Procedure Date: 07/02/2019 2:27 PM Date of : 1955 Age: 64 Procedure: Colonoscopy Indications: Clinically significant diarrhea of unexplained origin Providers: Rome Love MD Referring MD: Kelly Olvera Medicines: Monitored Anesthesia Care Patient Profile: This is a 64 year old female. Refer to note in patient chart for documentation of history and physical. Last Colonoscopy: more than 3 years ago. Complications: No immediate complications. Procedure: Pre-Anesthesia Assessment: - Prior to the procedure, a History and Physical was performed, and patient medications and allergies were reviewed. The patient is competent. The risks and benefits of the procedure and the sedation options and risks were discussed with the patient. All questions were answered and informed consent was obtained. Patient identification and proposed procedure were verified by the physician, the nurse, the anesthesiologist and the law enforcement instructor in the procedure room. Mental Status Examination: alert and oriented. Airway Examination: normal oropharyngeal airway and neck mobility. Respiratory Examination: clear to auscultation. CV Examination: normal. Prophylactic Antibiotics: The patient does not require prophylactic antibiotics. Prior Anticoagulants: The patient has taken Plavix (clopidogrel), last dose was 1 day prior to procedure. ASA Grade Assessment: III - A patient with severe systemic disease. After reviewing the risks and benefits, the patient was deemed in satisfactory condition to undergo the procedure. The anesthesia plan was to use monitored anesthesia care (MAC). Immediately prior to administration of medications, the patient was re-assessed for adequacy to receive sedatives. The heart rate, respiratory rate, oxygen saturations, blood pressure, adequacy of pulmonary ventilation, and response to care were monitored throughout the procedure. The physical status of the patient was re-assessed after the procedure. After I obtained informed consent, the scope was passed under direct vision. Throughout the procedure, the patient's blood pressure, pulse, and oxygen saturations were monitored continuously. The Colonoscope was introduced through the anus and advanced to the cecum, identified by the appendiceal orifice, ileocecal valve and palpation. The colonoscopy was performed without difficulty. The patient tolerated the procedure well. The quality of the bowel preparation was good. Scope In: 2:29:26 PM Scope Withdrawal Time 0 hours 11 minutes 51 seconds Scope Out: 2:46:09 PM Total Procedure Duration Time 0 hours 16 minutes 43 seconds Findings: The perianal and digital rectal examinations were normal. Two semi-sessile polyps were found in the rectum and descending colon. The polyps were small in size. These polyps were removed with a cold snare. Resection and retrieval were complete. The colon (entire examined portion) appeared normal. Biopsies for histology were taken with a cold forceps from the cecum and sigmoid colon for evaluation of microscopic colitis. A few small-mouthed diverticula were found in the sigmoid colon. The retroflexed view of the distal rectum and anal verge was normal and showed no anal or rectal abnormalities. Impression: - Two small polyps in the rectum and in the descending colon, removed with a cold snare. Resected and retrieved. - The entire examined colon is normal. Biopsied. - Diverticulosis in the sigmoid colon. - The distal rectum and anal verge are normal on retroflexion view. Recommendation: - Discharge patient to home. - Resume previous diet. - Continue present medications. - Repeat colonoscopy for surveillance based on pathology results. - Return to physician assistant librarian in 1 week. Procedure Code(s): --- Professional --- 06256, Colonoscopy, flexible; with removal of tumor(s), polyp(s), or other lesion(s) by snare technique 29896, 59, Colonoscopy, flexible; with biopsy, single or multiple CPT copyright 2017 [employer]. All rights reserved. The codes documented in this report are preliminary and upon tin flipper review may be revised to meet current compliance requirements. Rome Love MD 07/02/2019 2:54:09 PM This report has been signed electronically. Number of Addenda: 0 Note Initiated On: 07/02/2019 2:27 PM 07/02/19 1454 Date [facility] Signature: Date (if indicated) CC: Kelly Olvera DO; Rome Love MD Date Dictated: 07/02/19 1427 Date Transcribed: Invasive Cardiovascular Technologist: RG Signed Kelly Olvera Start: 07-02-2019 End: 07-02-2019 EGD Report Comments: See Note; NOTES: [facility] Medical Records Department [address] [place] [address] EGD Report MR#: [id number] Acct: [id number] Name: GIOVANNI LOMAX Rep #: [id number] : 1955 64 From: Rome Love MD PCP: Kelly Olvera DO Status: REG [facility] Patient Name: Giovanni Lomax Procedure Date: 07/02/2019 1:58 PM Date of : 1955 Age: 64 Procedure: Upper GI endoscopy Indications: Diarrhea Providers: Rome Love MD Referring MD: Kelly Olvera Medicines: Monitored Anesthesia Care Complications: No immediate complications. Procedure: Pre-Anesthesia Assessment: - Prior to the procedure, a History and Physical was performed, and patient medications and allergies were reviewed. The patient is competent. The risks and benefits of the procedure and the sedation options and risks were discussed with the patient. All questions were answered and informed consent was obtained. Patient identification and proposed procedure were verified by the physician, the nurse, the anesthesiologist and the law enforcement instructor in the procedure room. Mental Status Examination: alert and oriented. Airway Examination: normal oropharyngeal airway and neck mobility. Respiratory Examination: clear to auscultation. CV Examination: normal. Prophylactic Antibiotics: The patient does not require prophylactic antibiotics. Prior Anticoagulants: The patient has taken Plavix (clopidogrel), last dose was 1 day prior to procedure. ASA Grade Assessment: III - A patient with severe systemic disease. After reviewing the risks and benefits, the patient was deemed in satisfactory condition to undergo the procedure. The anesthesia plan was to use monitored anesthesia care (MAC). Immediately prior to administration of medications, the patient was re-assessed for adequacy to receive sedatives. The heart rate, respiratory rate, oxygen saturations, blood pressure, adequacy of pulmonary ventilation, and response to care were monitored throughout the procedure. The physical status of the patient was re-assessed after the procedure. After obtaining informed consent, the endoscope was passed under direct vision. Throughout the procedure, the patient's blood pressure, pulse, and oxygen saturations were monitored continuously. The gastroscope was introduced through the mouth, and advanced to the jejunum. The upper GI endoscopy was accomplished with ease. The patient tolerated the procedure well. Scope In: 2:23:22 PM Scope Out: 2:27:07 PM Total Procedure Duration Time 0 hours 3 minutes 45 seconds Findings: The examined jejunum was normal. Localized mild inflammation characterized by erosions and erythema was found in the duodenal bulb. Scattered moderate inflammation characterized by erosions, erythema, friability and granularity was found in the gastric antrum. Biopsies were taken with a cold forceps for Helicobacter pylori testing using PyloriTek test. Biopsies were taken with a cold forceps for histology. The lower third of the esophagus was normal. Biopsies were taken with a cold forceps for histology. The middle third of the esophagus was normal. Biopsies were taken with a cold forceps for histology. Impression: - Normal examined jejunum. - Duodenitis. - Gastritis. Biopsied. - Normal lower third of esophagus. Biopsied. - Normal middle third of esophagus. Biopsied. Recommendation: - Discharge patient to home. - Resume previous diet. - Continue present medications. - Await pathology results. - Return to physician assistant librarian in 1 week. Procedure Code(s): --- Professional --- 62492, Esophagogastroduodenoscopy, flexible, transoral; with biopsy, single or multiple CPT copyright 2017 [employer]. All rights reserved. The codes documented in this report are preliminary and upon tin flipper review may be revised to meet current compliance requirements. Rome Love MD 07/02/2019 2:52:03 PM This report has been signed electronically. Number of Addenda: 0 Note Initiated On: 07/02/2019 1:58 PM 07/02/19 1452 Date Rome Love MD Cosigner Signature: Date (if indicated) CC: Kelly Olvera DO; Rome Love MD Date Dictated: 07/02/19 1358 Date Transcribed: Invasive Cardiovascular Technologist: RG Signed Kelly Anil Start: 07-02-2019 End: 07-02-2019 History and Physical Exam Comments: See Note; NOTES: [facility] Medical Records Department [address] [place] [address] History and Physical 07/02/19723 MR#: [id number] Acct: [id number] Name: GIOVANNI LOMAX Rep #: [id number] : 1955 64 From: Rome Love MD PCP: Kelly Olvera DO Status: [facility] Location: [place] [address] ADDENDUM by Rome Love MD on 07/02/19 at 1223 Code Visit I have re-examined the patient. There are no clinical changes since date of exam 07/02/19 1223 <Electronically signed by Rome Love MD> Date Rome Love MD cc: Kelly Olvera DO; Rome Love MD * Signed History and Physical Date of Admission: 07/02/19 HISTORY AND PHYSICAL Giovanni Lomax 1955 REFERRING PHYSICIAN: Kelly Olvera ,* CHIEF COMPLAINT: Diarrhea HPI: The patient is a 64 year old female referred for endos copy. Giovanni notes that she has had a three-month history of diarrheal stools. She states fabio t she has loose liquidy stools and urgency and really can't even leave the house. She denies t rue cramping but notes rapid onset and urgency with watery foul smelling mucousy stools. She d enies steatorrhea. She denies melena or blood in her stools. She rarely has normal bowel move ments. She has been tryingImodium which seems to not help much. She denies this is related to eating foods. She notes no epigastric pain reflux or other challenges. She has had 2-3 inci dence of incontinence where she has been unable to make it to the bathroom. She denies any ch vivian in her recent medications. She denies any antibiotic use. She denies any foreign travel. She notes no other family members with gastrointestinal infections or other challenges. Serene case has not undergone prior endoscopy. The patient is being seen by me today at the request of Dr. Kelly Olvera, for my opinion and advice regarding three-month history of loose diarrheal stools. PAST MEDICAL HISTORY PAST MEDICAL HISTORY Diagnosis Date Essent ial hypertension, benign 1973 diagnosed age 19 Other and unspecified hyperlipidemia Other chest pain Jun 2005 non-cardiac CP, stress test normal Other forms of migraine Restless legs syndrome (RLS) 2005 Senile osteoporosis 2005 Tobacco usedisorder PAST SURGICAL HISTORY PAST SURGICAL HISTORY Procedure Laterality Date EGD W/O BRSH SPECIMEN W/BX 12/28/2007 gastritis REMOVAL OF OVARY(S) Oophorectomy - bilateral, due to recurrent cysts VAGINAL HYSTERECTOMY 1981 menorrhagia - no cancer CURR ENT MEDICATIONS Current Outpatient Medications Medication Sig ticagrelor (BRILINTA) 90 est Pain. aspirin 81 mg chewable tablet Take 1 tablet by mouth once daily. lisinopril (ZE STRIL, PRINIVIL) 5 mg tablet Take 5 mg by mouth. losartan (COZAAR) 50 mg tablet Take 50 mg b y mouth once daily. peg 3350-electrolytes (COLYTE) 240-22.72-6.72 gram solution Take 4000 ml as directed. Follow written instructions from the doctor's office. Varenicline (CHANTIX) 0 .5 (11)-1 (42) mg tablet Take one 0.5mg tablet by mouth once daily for 3 days, then increase to one 0.5mg tablet twice daily for 3 days, then increase to one 1mg tablet twice daily. (Patient not taking: Reported on 06/26/2019 ) clopidogrel 75 mg tablet Take 1 tablet by mouth once d aily. carvedilol (COREG) 3.125 mg tablet Take 1 tablet by mouth twice daily. flaxseed-ome ga3,6,9-fatty acid 1,200-540-132 mg capTake 1 capsule by mouth once daily. pramipexole 0.25 mg tablet Take 1 tablet by mouth once daily. (Patient taking differently: Take 0.5 mg by mouth once daily.) lisinopril-hydrochlorothiazid e 20-25 mg ORAL per tablet Take 1 tablet by mouth once daily. No current facility-administered medications for this visit. ALLERGIES: Patient has no known allergies. 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 Smoking status: Former Smoker Packs/day: 0.50 Years: 35.00 Pack years : 17.50 Types: Cigarettes Last attempt to quit: 11/08/2009Years since quittin.6 Smokeless tobacco: Never Used Tobacco comment: tried wellbutrin, didn't tolerate patch, woul d consider Chantix but insurance doesn't cover Substance Use TopicsAlcohol use: No Drug use : Yes Types: Marijuana Comment: caffeine FAMILY HISTORY: FAMILY HISTORY FAMILY HISTORY Problem Relation Age of Onset Alcohol/Drug Mother Heart Father 52 of [place], developed CAD age early 40's Alcohol/Drug Father Coronary Artery Dis ease Father Hypertension Father Heart Brother CABG age 46, stents andMI's pl aced since Cancer Maternal Aunt pancreatic Coronary Artery Disease Brother Hypertension Brother REVIEW OF SYMPTOMS: The review of systems data was entered by jose srivastava and reviewed by nh Nursing Notes: Jameson Bishop 06/26/2019 3:51 PM Signed REVIEW O F SYSTEMS: General: The patient NOTES fatigue, NOTES weight loss, denies weight gain, de nies feeling hot, and denies feelings of cold. Eyes: The patient denies glaucoma, denies eye injury/surgery, wears glasses or contacts. Ear/Nose/Throat: The patient denies allerg ies, denies hayfever,denies ear infections, and denies bloody noses. Cardiovascular: The patient denies chest pain, denies heart disease, NOTES high blood pressure,NOTES cardiac stent, NOTES prior heart attack, denies irregular heart beat, NOTES high cholesterol, denies poor ci rculation, denies heart failure, other cardiac issues, denies claudication, denies cold feet, d enies peripheral arterial stent. Respiratory: The patient denies tuberculosis, denies pne umonia, NOTES frequent cough, denies pulmonary embolism, NOTES shortness of breath, and denies coughing up blood. Gastrointestinal: The patient denies difficulty swallowing, denies aci d reflux, denies ulcers, denies vomiting, denies jaundice/hepatitis, denies gallbladder problem s, denies black or tarry stools, denies hemorrhoids, deniesbleeding from rectum, denies diverti culitis, denies constipation, NOTES diarrhea, denies loss of stool control, and denies hernias. Kidney/Bladder: The patient denies kidney stones, denies urineinfections, and denies blo mario urine. Skin: The patient denies a history of skin cancer, denies bleeding/changing mo les, and denies a history of skin rash. Neurologic: The patient denies ahistory of epilep sy/convulsions, denies headaches, denies head/spinal injuries, and denies stroke/TIA. Psyc hiatric: The patient denies psychiatric medications, NOTES depression, and denies voices, aristides es substance abuse. Endocrine: The patient denies thyroid disorders, denies diabetes, and denies hormonal problems. Hematologic: The patient NOTES a history of bruising, denies b leeding, and denies anemia, denies blood clots. Infections: The patient denies a history of measles and mumps, denies rheumatic fever, and denies sexually transmitted diseases. Mu sculoskeletal: The patient denies back pain/injury, denies back problems, denies sciatica, den ies knee/foot trouble, denies arthritis, or denies gout. When was patient's last Mammogram screening? N/A LastColonoscopy: SAHARA Bishop PHYSICAL EXAMINATION: General: The patient is 64 year old female, well nourished, well hydrated in no acute distress. The patient is oriented to time, place, and person. VITALS: Blood pressure 142/100, pulse 96, temperatur e 36.5 C (97.7 F), temperature source Temporal, resp. rate 20, height 165.1 cm (5' 5), weigh t 68.5 kg (151 lb), SpO2 98 %. Body massindex is 25.13 kg/m . HEENT: Normal cephalic, ataum atic, pupils are equally round, sclera are anicteric, mucous membranes are moist, oropharynx is clear. Neck has no masses, asymmetry or lymphadenopathy. Thyroid is unremarkable. Respirat ory: Clear to auscultation and percussion. Normal respiratory excursion and pattern. Cardia c: Examination is regular rate and rhythm. Abdominal exam: Soft, nontender, with no palpab le masses. No hepatosplenomegaly. No palpable hernias. Rectal exam: exam deferred Extremi ties: no clubbing, cyanosis or edema. No adenopathy. Other: LABORATORY VALUES: As Noted RADIOLOGIC STUDIES: As Noted Assessment IMPRESSION: Diarrhea PLAN: I plan to perform upper and lower endoscopy. We discussed the risks and benefits of the plannedendoscopy. I h ave informed the patient that complications can occur including failure to complete the endosco py and perforation. The patient had the opportunity to ask questions concerning the planned en doscopy. My staff has also explained the procedure to the patient in understandable terms and has given the patient printed material concerning the procedure. The patient freely consents t o surgery. I plan to use golytely bowel preparation for endoscopy The patient has medical comorbidities for which I plan to perform the procedure under monitored anesthetic care. Diag noses: (R19.7)Diarrhea, unspecified type (primary encounter diagnosis) A letter was sent to Dr. Kelly Olvera DO indicating the above finding for this patient. Return to Clinic: The patient is instructed to follow-up with me after the testing has been completed. __ Rome Love MD 07/02/19 0725 <Electronically signed by Rome Love MD> Date Rome Love MD Cosigner Signature: Date (if applicable) CC: Kelly Olvera DO; Rome Love MD Signed Kelly Olvera Start: 07-02-2019 End: 07-02-2019 History and Physical Exam Comments: See Note; NOTES: [facility] Medical Records Department [address] [place] [address] History and Physical 07/02/1924 MR#: [id number] Acct: [id number] Name: GIOVANNI LOMAX Rep #: [id number] : 1955 64 From: Rome Love MD PCP: Kelly Olvera DO Status: [facility] Y Location: EN History and Physical Date of Admission: 07/02/19 HISTORY AND PHYSICAL Giovanni Lomax 1955 REFERRING PHYSICIAN: Kelly Olvera ,* CHIEF COMPLAINT: Diarrhea HPI: The patient is a 64 year old female referred for endos copy. Giovanni notes that she has had a three-month history of diarrheal stools. She states fabio t she has loose liquidy stools and urgency and really can't even leave the house. She denies t rue cramping but notes rapid onset and urgency with watery foul smelling mucousy stools. She d enies steatorrhea. She denies melena or blood in her stools. She rarely has normal bowel move ments. She has been tryingImodium which seems to not help much. She denies this is related to eating foods. She notes no epigastric pain reflux or other challenges. She has had 2-3 inci dence of incontinence where she has been unable to make it to the bathroom. She denies any ch vivian in her recent medications. She denies any antibiotic use. She denies any foreign travel. She notes no other family members with gastrointestinal infections or other challenges. Serene case has not undergone prior endoscopy. The patient is being seen by me today at the request of Dr. Kelly Olvera DO for my opinion and advice regarding three-month history of loose diarrheal stools. PAST MEDICAL HISTORY PAST MEDICAL HISTORY Diagnosis Date Essent ial hypertension, benign 1974 diagnosed age 19 Other and unspecified hyperlipidemia Other chest pain Jun 2005 non-cardiac CP, stress test normal Other forms of migraine Restless legs syndrome (RLS) 2006 Senile osteoporosis 2006 Tobacco usedisorder PAST SURGICAL HISTORY PAST SURGICAL HISTORY Procedure Laterality Date EGD W/O BRSH SPECIMEN W/BX 12/28/2007 gastritis REMOVAL OF OVARY(S) Oophorectomy - bilateral, due to recurrent cysts VAGINAL HYSTERECTOMY 1981 menorrhagia - no cancer CURR ENT MEDICATIONS Current Outpatient Medications Medication Sig ticagrelor (BRILINTA) 90 est Pain. aspirin 81 mg chewable tablet Take 1 tablet by mouth once daily. lisinopril (ZE STRIL, PRINIVIL) 5 mg tablet Take 5 mg by mouth. losartan (COZAAR) 50 mg tablet Take 50 mg b y mouth once daily. peg 3350-electrolytes (COLYTE) 240-22.72-6.72 gram solution Take 4000 ml as directed. Follow written instructions from the doctor's office. Varenicline (CHANTIX) 0 .5 (11)-1 (42) mg tablet Take one 0.5mg tablet by mouth once daily for 3 days, then increase to one 0.5mg tablet twice daily for 3 days, then increase to one 1mg tablet twice daily. (Patient not taking: Reported on 06/26/2019 ) clopidogrel 75 mg tablet Take 1 tablet by mouth once d aily. carvedilol (COREG) 3.125 mg tablet Take 1 tablet by mouth twice daily. flaxseed-ome ga3,6,9-fatty acid 1,200-540-132 mg capTake 1 capsule by mouth once daily. pramipexole 0.25 mg tablet Take 1 tablet by mouth once daily. (Patient taking differently: Take 0.5 mg by mouth once daily.) lisinopril-hydrochlorothiazid e 20-25 mg ORAL per tablet Take 1 tablet by mouth once daily. No current facility-administered medications for this visit. ALLERGIES: Patient has no known allergies. 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 Smoking status: Former Smoker Packs/day: 0.50 Years: 35.00 Pack years : 17.50 Types: Cigarettes Last attempt to quit: 11/08/2009Years since quittin.6 Smokeless tobacco: Never Used Tobacco comment: tried wellbutrin, didn't tolerate patch, woul d consider Chantix but insurance doesn't cover Substance Use TopicsAlcohol use: No Drug use : Yes Types: Marijuana Comment: caffeine FAMILY HISTORY: FAMILY HISTORY FAMILY HISTORY Problem Relation Age of Onset Alcohol/Drug Mother Heart Father 52 [place], developed CAD age early 40's Alcohol/Drug Father Coronary Artery Dis ease Father Hypertension Father Heart Brother CABG age 46, stents andMI's pl aced since Cancer Maternal Aunt pancreatic Coronary Artery Disease Brother Hypertension Brother REVIEW OF SYMPTOMS: The review of systems data was entered by jose srivastava and reviewed by me Nursing Notes: Jameson Bishop 06/26/2019 3:51 PM Signed REVIEW O F SYSTEMS: General: The patient NOTES fatigue, NOTES weight loss, denies weight gain, de nies feeling hot, and denies feelings of cold. Eyes: The patient denies glaucoma, denies eye injury/surgery, wears glasses or contacts. Ear/Nose/Throat: The patient denies allerg ies, denies hayfever,denies ear infections, and denies bloody noses. Cardiovascular: The patient denies chest pain, denies heart disease, NOTES high blood pressure,NOTES cardiac stent, NOTES prior heart attack, denies irregular heart beat, NOTES high cholesterol, denies poor ci rculation, denies heart failure, other cardiac issues, denies claudication, denies cold feet, d enies peripheral arterial stent. Respiratory: The patient denies tuberculosis, denies pne umonia, NOTES frequent cough, denies pulmonary embolism, NOTES shortness of breath, and denies coughing up blood. Gastrointestinal: The patient denies difficulty swallowing, denies aci d reflux, denies ulcers, denies vomiting, denies jaundice/hepatitis, denies gallbladder problem s, denies black or tarry stools, denies hemorrhoids, deniesbleeding from rectum, denies diverti culitis, denies constipation, NOTES diarrhea, denies loss of stool control, and denies hernias. Kidney/Bladder: The patient denies kidney stones, denies urineinfections, and denies blo mario urine. Skin: The patient denies a history of skin cancer, denies bleeding/changing mo les, and denies a history of skin rash. Neurologic: The patient denies ahistory of epilep sy/convulsions, denies headaches, denies head/spinal injuries, and denies stroke/TIA. Psyc hiatric: The patient denies psychiatric medications, NOTES depression, and denies voices, aristides es substance abuse. Endocrine: The patient denies thyroid disorders, denies diabetes, and denies hormonal problems. Hematologic: The patient NOTES a history of bruising, denies b leeding, and denies anemia, denies blood clots. Infections: The patient denies a history of measles and mumps, denies rheumatic fever, and denies sexually transmitted diseases. Mu sculoskeletal: The patient denies back pain/injury, denies back problems, denies sciatica, den ies knee/foot trouble, denies arthritis, or denies gout. When was patient's last Mammogram screening? N/A LastColonoscopy: SAHARA Bishop PHYSICAL EXAMINATION: General: The patient is 64 year old female, well nourished, well hydrated in no acute distress. The patient is oriented to time, place, and person. VITALS: Blood pressure 142/100, pulse 96, temperatur e 36.5 C (97.7 F), temperature source Temporal, resp. rate 20, height 165.1 cm (5' 5), weigh t 68.5 kg (151 lb), SpO2 98 %. Body massindex is 25.13 kg/m . HEENT: Normal cephalic, ataum atic, pupils are equally round, sclera are anicteric, mucous membranes are moist, oropharynx is clear. Neck has no masses, asymmetry or lymphadenopathy. Thyroid is unremarkable. Respirat ory: Clear to auscultation and percussion. Normal respiratory excursion and pattern. Cardia c: Examination is regular rate and rhythm. Abdominal exam: Soft, nontender, with no palpab le masses. No hepatosplenomegaly. No palpable hernias. Rectal exam: exam deferred Extremi ties: no clubbing, cyanosis or edema. No adenopathy. Other: LABORATORY VALUES: As Noted RADIOLOGIC STUDIES: As Noted Assessment IMPRESSION: Diarrhea PLAN: I plan to perform upper and lower endoscopy. We discussed the risks and benefits of the plannedendoscopy. I h ave informed the patient that complications can occur including failure to complete the endosco py and perforation. The patient had the opportunity to ask questions concerning the planned en doscopy. My staff has also explained the procedure to the patient in understandable terms and has given the patient printed material concerning the procedure. The patient freely consents t o surgery. I plan to use golytely bowel preparation for endoscopy The patient has medical comorbidities for which I plan to perform the procedure under monitored anesthetic care. Diag noses: (R19.7)Diarrhea, unspecified type (primary encounter diagnosis) A letter was sent to Dr. Kelly Olvera DO indicating the above finding for this patient. Return to Clinic: The patient is instructed to follow-up with me after the testing has been completed. __ Rome Love MD 07/02/19 0725 <Electronically signed by Rome Love MD> Date Rome Love MD Cosigner Signature: Date (if applicable) CC: Kelly Olvera DO; Rome Love MD Signed Kelly Olvera Start: 06-29-2019 End: 06-29-2019 Echocardiogram Complete Comments: See Note; NOTES: [facility] [address] [place] [address] Echo Complete 06/28/19 1309 MR#: [id number] Acct: [id number] Name: GIOVANNI LOMAX Rep #: [id number] : 1955 64 From: Tristen Mchugh MD Attending Dr: Tristen Mchugh MD Status: [facility] Ordering Dr: Tristen Mchugh MD Date: 06/28/19 Location: [facility] Sex: F C Admitted: Reason For Study: CAD/ASHD Procedure This was a 2D Doppler, Color Flow transthoracic echocardiogram. Exam performed in department. Left Ventricle Normal size and thickness. The estimated ejection fraction is 65 %. Stage 1 diastolic dysfunction. No regional wall motion abnormalities noted. Right Ventricle Normal size and thickness. Normal systolic function. Atria Normal left atrium. Normal right atrium. Normal atrial septum. Mitral Valve The mitral valve is structurally normal. No prolapse or stenosis seen. Mild mitral annular calcification extending into the posterior leaflet. Tricuspid Valve Normal tricuspid valve. Trivial tricuspid valve insufficiency. Right ventricular systolic pressure estimated to be 23 mmHg. Aortic Valve Trisinus/trileaflet aortic valve. Pulmonic Valve Normal pulmonic valve. Great Vessels Normal aortic root. Normal arch. Normal inferior vena cava. Inferior vena cava collapse with sniff. Pericardium/Pleural No pericardial effusion. MMode/2D Measurements AND Calculations LVIDd: 4.2 cm IVSd: 1.0 cm Ao root diam: 3.1 cm LVIDs: 2.5 cm LVPWd: 1.1 cm RVDd: 3.0 cm FS: 40.9 % LAV(MOD-bp): 43.4 ml LA A4 area: 13.9 cm2 LA dimension(2D): 3.1 cm LAV(MOD-bp) Indexed: 23.8 ml/m2 LAV(MOD-sp2): 39.1 ml LAV(MOD-sp4): 39.7 ml RA A4 area: 11.6 cm2 Time Measurements MV dec time: 0.24 sec Doppler Measurements AND Calculations MV E max aleks: 84.4 cm/sec Lat Peak E' Aleks: 7.6 cm/sec Med Peak E' Aleks: 5.6 cm/sec MV A max aleks: 96.5 cm/sec E/E' lat: 11.1 E/E' med: 15.1 MV E/A: 0.87 Ao V2 max: 114.2 cm/sec LV V1 max: 109.1 cm/sec TR max aleks: 209.5 cm/sec Ao max P.2 mmHg LV V1 max P.8 mmHg TR max P.6 mmHg Interpretation Summary The estimated ejection fraction is 65 %. Stage 1 diastolic dysfunction. Trivial tricuspid valve insufficiency. Right ventricular systolic pressure estimated to be 23 mmHg. Compared to echo report dated 01/10/2019, LV function has improved from 60% to 65%. Ordering Physician: Jeison Referring Physician: Kelly Olvera Performed By: Doretha Day, ELISEO, RVT 06/29/19929 Date Tristen Mhcugh MD CC: Tristen Mchugh MD; Kelly Olvera DO Date Dictated: 06/28/19 1309 Date Transcribed: 06/29/19929 Invasive Cardiovascular Technologist: Signed Kelly Olvera Start: 05-24-2019 End: 05-24-2019 Cardiology Visit Report Comments: See Note; NOTES: [facility] [address] [place] [address] OFFICE VISIT Date of Service: 05/24/19 MR#: [id number] Acct: [id number] Name: GIOVANNI LOMAX Rep #: [id number] : 1955 Provider: Tristen Mchugh MD Age/Sex: 64/F Location: [facility] [place] Status: Signed HPI [facility] History of Present Illness Details: Details: This is a 64-year-old female that presents here today for a cardiovascular follow up. Patient presented to [facility] with chest discomfort on January 10, 2019. She noted that discomfort had been progressing over the last several days. She was noted to have an acute inferior lateral wall myocardial infarction. She underwent angioplasty of her proximal RCA with an overlapping into the previous RCA stent that was done approximately 7 years ago. Her cath was as follows: Acute occlusion of proximal RCA upstream from stent. Successful PTCA/EMPERATRIZ of occluded proximal RCA, upstream from previous stent, utilizing a 3.0 x 16 promus Synergy, post dilated with a 3.0, 3.25 and 3.5 x 12 NC Balloon. 100%-->0%, no dissection. Pt had less than optimal stent deployment at end of first case despite 3.25 NC Balloon. 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 Emergent reprep and relook showed acute stent thrombosis. Emergent PTCA with 2.0 x 12 balloon, followed by Foosland catheter, followed by IVUS performed. Pt given Integrillin bolus and gtt, followed by post stent dilatation with a 3.0 x 10 Angiosculpt, followed by a 3.5 x 12 NC balloon. Repeat IVUS confirmed appropriate stent deployment and no resolution of scar tissue protruding through stent struts. She does have a history of hypertension, hyperlipidemia and tobacco abuse. Echo dated 01/10/2109: The estimated ejection fraction is 60 %. Stage 1 diastolic dysfunction. Posterior-Basal: Mildly hypokinetic Unable to estimate RV systolic pressure due to insufficient tricuspid regurgitant envelope. Compared to echo report dated 09/29/2017, LV function is preserved with new mild proximal posterior hypokinesis. She does not have any chest discomfort/heaviness/tightnes s. Her exercise tolerance is stable for her age. She does complain of dyspnea on exertion however, continues to smoke although much less than she did before her myocardial infarction.. She does not have any orthopnea. She denies PND. She does not have any symptoms of congestive heart failure. She does not have any palpitations that she is aware of. She does not have any lightheadedness or dizziness. She does not have any near-syncope or syncope. She does not have any lower extremity edema. She does not have any symptoms of claudication. 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 In addition she complains of diarrhea which is started about 2 months after her myocardial infarction. In our office today blood pressure is 178/94, and pulse is 96 and regular. Physical exam is as below. Lipids dated 01/10/2019 show an LDL of 141 HDL of 48. Repeat lipids are pending. Repeat echo is pending. Intake Vital Signs05/24/19 Height 5 ft 4 in 05/24/19 Weight: 152 lb 05/24/19 Body Mass Index (BMI) 26.1 05/24/19 Blood Pressure 178/94 H Intake Visit Reasons: 3 m fu Allergies adhesive Adverse Reaction (Intermediate, Verified 05/23/19 09:57) Rash Medications Aspirin E.C. [Ecotrin] 81 mg PO DAILY@0800 #30 tab 01/12/19 [Rx Confirmed 05/23/19] atorvastatin 80 mg tablet 80 mg PO QHS #90 tab 02/08/19 [Rx Confirmed 05/23/19] metoprolol tartrate 25 mg tablet 25 mg PO BID #180 tab 02/08/19 [Rx Confirmed 05/23/19] nitroglycerin 0.4 mg sublingual tablet 0.4 mg SUBLINGUAL Q5M PRN #25 tab 02/08/19 [Rx Confirmed 05/23/19] clopidogrel 75 mg tablet 75 mg PO .COMPLEX #45 tab 05/24/19 [Rx Confirmed 05/24/19] cyanocobalamin (vitamin B-12) 1,000 mcg capsule 1,000 mcg PO DAILY 05/24/19 [History Confirmed 05/24/19] losartan 100 mg tablet 100 mg PO DAILY #30 tab 05/24/19 [Rx Confirmed 05/24/19] PFS Medical History Hyperlipidemia (Chronic) 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 Garrett.); negative for fatigue, weakness, body ache, fever(s), headache(s), chills, frequent falls, night sweats, daytime sleepiness, excessive sweating, weight gain, increased appetite, poor appetite or anorexia Eyes Eyes: Negative for blind spots, loss of peripheral vision, transient loss of vision, blurry vision, change in vision, double vision, floaters, tunnel vision or other ENT ENT: Negative for headache(s), dizziness, hearing loss, tinnitus, Nosebleed/epistaxis, balance problems, post nasal drip, lip swelling, tongue swelling, bleeding gums, hoarseness, neck pain, dry mouth or other Cardio Chest Pain: No Palpitations: No Edema: None Muscle aches with walking: None Resp Respiratory: Positive for SOB with activity (smoker, some COPD) and Cough (mostly dry cough); negative for SOB at rest, SOB orthopnea\SOB lying down, Coughing up blood/hemoptysis, chest congestion, pain on inspiration, snoring, stridor, wheezing, crackles, paroxysmal nocturnal dyspnea or other GI GI: Negative nausea, vomiting, heartburn, constipation, belching, bloating, cramping, vomiting blood/hematemesis, bright, red blood in stools, black,tarry stools, loose stools, Difficulty Swallowing or other : Negative for hematuria, frequent nighttime urination/ nocturia, erectile dysfunction or abnormal vaginal bleeding Musc Musc: Negative for muscle aches/ myalgia, muscle weakness, joint pain or balance problems Skin Skin: Negative redness, non-healing lesions, rash, unusual bruising, skin ulcer, wounds, jaundice or other Neuro Neuro: Negative for dizziness, lightheadedness, near syncope, syncope, orthostatic symptoms, frequent falls, headache(s), weakness, confusion, memory loss, restless legs, blurry vision, double vision, vertigo, seizures, lack of coordination or other Chau Hematologic/Lymphatic: Negative for easy bleeding, easy bruising, enlarged lymph nodes or other Endo Endo: Negative for fatigue, cold intolerance, heat intolerance, excessive sweating, flushing, increased thirst/drinking, increased hunger, hair loss, hair growth or other Psych Psych: Negative for anxiety, depression, thoughts of harming anyone, thoughts of harming yourself, visual hallucinations, panic attacks or audible hallucinations Allergy Allergy/Immunology: Negative for throat swelling, Negative for tongue swelling, Negative for hives, Negative for rash, Negative for lip swelling Cardiology Exam Const Appearance: cooperative, healthy appearing and no acute distress Nutritional Appearance: well nourished Orientation: alert, oriented x3 and oriented to person Head Head: normal to inspection, normocephalic and atraumatic Nose: external nose normal Face and Sinus: face symmetric Mouth: oral mucosae normal Eyes General: appearance normal, both eyes and all related structures Eyelids: eyelids normal Conjunctivae: conjunctivae normal Pupils: PERRL and normal by confrontation EOM: EOM intact bilaterally Neck Neck: normal visual inspection and full ROM Carotids: normal carotid upstroke Chest Chest inspection: normal inspection of the chest Auscultation: Bilateral: Clear to Auscultation Cardio Palpation: normal PMI Rate: regular rate Rhythm: regular rhythm Heart sounds: S1 normal and S2 normal GI GI: normal to inspection, no hepatosplenomegaly and bowel sounds present Neuro General: alert, awake, oriented x3, CN's II-XI intact bilaterally and moves all extremities Skin Skin: no rashes or lesions noted Extremities Pulses: Normal: Right Femoral Pulse, Left Femoral Pulse, Right Dorsalis Pedis Pulse, Left Dorsalis Pedis Pulse, Right Posterior Tibial Pulse, Left Posterior Tibial Pulse, Right Radial Pulse, Left Radial Pulse Lower Extremity Edema: None: Bilateral Psych Psychological: normal affect Assessment AND Plan 1. 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 Successful PTCA/EMPERATRIZ of occluded proximal RCA, upstream from previous stent, utilizing a 3.0 x 16 promus Synergy, post dilated with a 3.0, 3.25 and 3.5 x 12 NC Balloon. 100%-->0%, no dissection. Pt had less than optimal stent deployment at end of first case despite 3.25 NC Balloon. 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 Emergent reprep and relook showed acute stent thrombosis. Emergent PTCA with 2.0 x 12 balloon, followed by Foosland catheter, followed by IVUS performed. Pt given Integrillin bolus and gtt, followed by post stent dilatation with a 3.0 x 10 Angiosculpt, followed by a 3.5 x 12 NC balloon. Repeat IVUS confirmed appropriate stent deployment and no resolution of scar tissue protruding through stent struts. Plan 1. Coronary artery disease: No exertional anginal symptoms at this time. The patient has difficulty paying for her Brilinta, as well as some dyspnea on exertion which may be a side effect of her Brilinta. Recommend loading her with Plavix 300 mg x 1 followed by 75 mg a day and continuing her baby aspirin. We will discontinue her Brilinta. In addition the patient did not participate in cardiac rehab due to psychosocial stressors at home. She believes she can do it now. She will proceed with cardiac rehab. We will repeat her echocardiogram the conclusion of cardiac rehab. Orders Orders: Referrals: 2. Hyperlipidemia E78.5 Plan 2. Hyperlipidemia: Patient is tolerating Lipitor well. Repeat lipid profile is pending. Her LDL should be less than 70. Orders Orders: Referrals: 3. Essential hypertension I10 Plan 3. Hypertension: The patient's blood pressure is not well controlled and she engages in significant isometric exercise. She will continue her metoprolol and we will increase her losartan to 100 mg p.o. daily. Repeat blood pressure check in 2 weeks time. 4. Tobacco cessation: I had a long thorough discussion with patient regarding tobacco cessation, and she agrees to quit. Have advised her to begin cardiac rehab and begin exercising at home as a pathway for tobacco cessation. Patient has tried Chantix in the past at which time she had her first myocardial infarction. 5. Return office in 6 months. This note was generated using a voice recognition system and there may be incorrect words, spelling or punctuation that were not noted when reviewing the office note prior to saving. Orders Orders: Referrals: Plan Detail Other Orders Orders: Referrals: Other Medications New: Discontinued: Follow Up +6M (Mchugh) +2 WEEKS (BP CHECK) Coding Level of Care Code Off vis,est,level 3 Diagnoses Atherosclerosis of robinson coronary artery of robinson heart without angina pectoris I25.10 [place] vs. transplanted heart: robinson heart Hyperlipidemia E78.5 Essential hypertension I10 Hypertension type: essential hypertension Coding Level of Care Code Off vis,est,level 3 Diagnoses Atherosclerosis of robinson coronary artery of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 starting 11/30/2019 until 11/30/2019 [facility] Comment on above: One Time for 1 Occur rences starting 11/30/2019 until 11/30/2019 End: 11-30-2019 Protime-INR Protime-INR Lab STAT One Time for 1 Occurrences starting 11/30/2019 until 11/30/2019 [facility] [place] Comment on above: One Time for 1 Occur rences starting 11/30/2019 until 11/30/2019 End: 11-30-2019 Pulse Oximetry Spot Check Pulse Oximetry Spot Check Respiratory Care Routine One Time for 1 Occurrences starting 11/30/2019 until 11/30/2019 [facility] [place] Comment on above: One Time for 1 Occur rences starting 11/30/2019 until 11/30/2019 US Carotid arteries [facility] Work Phone: [facility] Work Phone: [facility] Immunizations Immunization Date Immunization Notes Care Provider Wandre mccain 04-11-2023 influenza, injectabl e, quadrivalent, preservative free Dr. Leonidas Traore Work Phone: [facility] 04-11-2023 influenza virus vaccine, unspecified formulation Roxana BONNER Work Phone: [facility] 03-07-2007 tetanus and diphther ia toxoids, adsorbed, preservative free, for adult use (2 Lf of tetanus toxoid and 2 Lf of diphtheria toxoid) Abran Granados MD Work Phone: [facility] Work Phone: Payers Date Payer Category Payer Self-pay [id number] 2023 Private Health Insurance [id number] 2023 Private Health Insurance [id number] 2022 Medicare [id number] 2022 Medicare [id number] 2019 Unknown SERA KAUFFMAN ACCE SS PPO [id number] 2019-Present [phone] [address] [place] [address] PPO [id number] 2019 Unknown BCBS [place] - [place] P PO xxxxxxxxxxxx 2019-Present [address] [place] [address] xxxxxxxxxxxx [id number] 2014 Unknown [employer] [id number] 2013 Unknown MED MUTUAL TPA [id number] Unknown [place] Unknown ANTHEM [id number] Unknown [id number] Unknown [id number] Unknown [id number] Unknown [id number] Unknown [id number] Unknown [id number] Unknown [id number] Unknown [id number] Unknown [id number] Unknown [id number] Unknown [id number] Social History Date Type Detail Facility Alcohol Use: Alcohol Use: [facility] Work Phone: Start: 11-29-2019 End: 06-18-2020 Caffeine Use Caffeine Use [facility] Work Phone: Comment on above: qd 1/2 ppd Drug Use: Drug Use: [facility] Work Phone: Exercise History: Exercise History: Compr [facility] Work Phone: Living Situation: Living Situation: [facility] Work Phone: Start: 11-29-2019 End: 12-07-2023 Tobacco smoking status IDIS Current every day smoker [facility] Start: 11-08-1974 End: 11-08-2009 History of tobacco use Cigarette Smoker [place] Start: 11-29-2019 End: 12-20-2023 Alcohol intake Current drinker of alcohol (finding) [place] Start: 02-24-2016 Alcohol Comment wine occasional [place], [place] Start: 1955 Sex Assigned At Not on file [place] Exposure to SARS-CoV-2 (event) Unable to assess [place] Alcohol Use: Alcohol Use: [facility] Work Phone: Drug Use: Drug Use: [facility] Work Phone: Exercise History: Exercise History: Compr ens[facility]; [facility] Work Phone: Living Situation: Living Situation: [facility]; [facility] Work Phone: Start: 10-08-2021 End: 06-05-2024 Tobacco use and exposure Smokeless tobacco non-user [facility] Start: 10-08-2021 End: 06-05-2024 Alcohol intake Current non-drinker of alcohol (finding) [facility] Start: 01-10-2007 End: 06-05-2024 Tobacco Comment tried wellbutrin, didn't tolerate patch, would consider Chantix but insurance doesn't cover [facility] Start: 09-28-2021 End: 10-08-2021 Exposure to SARS-CoV-2 (event) Not sure [facility] Start: 05-04-2022 End: 11-11-2023 Tobacco smoking status NHIS Unknown if ever smoked [facility] Start: 01-10-2019 None [facility] Start: 09-28-2017 Spouse/ Signif icant Other [facility] Start: 11-12-2019 Cigarettes [facility] Start: 1955 Sex Assigned At Female [facility] Start: 06-18-2020 End: 12-20-2023 Tobacco use panel [facility] National Score (1-100), lower number is lower risk Not on file [facility] Start: 09-13-2024 Sex Female (finding) [facility] Goals Date Patient Goal Desired Activity /State Functional Status Date Assessment Result Facility 11-11-2023 Functional status Ambulates;Up ad chasidy [facility] Work Phone: Mental Status Date Assessment Result Facility 11-11-2023 Cognitive function [facility] Work Phone: 11-10-2023 Cognitive function [facility] Work Phone: Clinical Notes 10-08-2021 to 08-08-2024 Note Date & Type Note Facility 08-08-2024 Evaluation note Diagnosis Onset Date Resolution Osteoporosis acute July 1:33pm Carotid artery disease chronic [facility] 2024 1:33pm COPD (chronic obstructive pulmonary disease) chronic August 08 1:33pm Hypertension chronic July 1:33pm Urinary frequency chronic August 08, 2024 1:33pm Carotid artery disease chronic [facility] 2024 1:55pm [facility] Work Phone: [phone]) 177-630811-26-2024 NoteHNO ID: [id number] Author: ROXANA GARCIA PA Service: ? Author Type: Physician Emergency Telecommunications Dispatcher Type: Progress Notes Filed: 06/05/2024 14:26 Note Text: This note was created using NoteWriter. Subjective Giovanni Lomax is a 69 year old female. HPI 69-year-old female with PMH of COPD presents for cough, chest congestion, shortness of breath. Patient states that she has had a cough for the past 2 weeks. She is coughing up some phlegm. She does have history of COPD and is a smoker. She states she always has a little cough, but her cough is worse. She states she feels a little more short of breath than normal. She does have a nebulizer at home, but does not have any solution for it. She does have inhalers that she has been using. She denies any chest pain. No fevers. No nasal congestion. She has had a headache on and off as well. No sick contacts that she is aware of. No other complaint. PAST MEDICAL HISTORY Diagnosis Date Essential hypertension, benign 1973 diagnosed age 19 Other and unspecified hyperlipidemia Other chest pain Jun 2005 non-cardiac CP, stress test normal Other forms of migraine Restless legs syndrome (RLS) 2005 Senile osteoporosis 2005 Tobacco use disorder PAST SURGICAL HISTORY Procedure Laterality Date EGD TRANSORAL BIOPSY SINGLE/MULTIPLE 12/28/2007 gastritis OOPHORECTOMY PARTIAL/TOTAL UNI/BI Oophorectomy - bilateral, due to recurrent cysts VAGINAL HYSTERECTOMY UTERUS 250 GM/< 1982 menorrhagia - no cancer ALLERGIES Patient has no known allergies. MEDICATIONS carbamide peroxide (DEBROX) 6.5 % otic solution Use 5 Drops in both ears twice daily. lisinopril (ZESTRIL, PRINIVIL) 5 mg tablet Take 5 mg by mouth. ticagrelor (BRILINTA) 90 mg tablet Take by mouth. losartan (COZAAR) 50 mg tablet Take 50 mg by mouth once daily. pravastatin 80 mg tablet Take 1 tablet by mouth once daily. aspirin 81 mg chewable tablet Take 1 tablet by mouth once daily. doxycycline monohydrate 100 mg tablet Take 1 tablet by mouth two times a day for 7 days. albuterol (PROVENTIL) 2.5 mg /3 mL (0.083 %) nebulizer solution Use 3 mL via nebulizer every 4 hours as needed for wheezing/shortness of breath. Use over 5-15minutes. carvedilol (COREG) 3.125 mg tablet Take 1 tablet by mouth twice daily. FAMILY HISTORY Problem Relation Age of Onset Alcohol/Drug Mother Heart Father 52 of [place], developed CAD age early 40's Alcohol/Drug Father Coronary Artery Disease Father Hypertension Father Heart Brother CABG age 46, stents and MN's placed since Cancer Maternal Aunt pancreatic Coronary Artery Disease Brother Hypertension Brother Social History Tobacco Use Smoking status: Every Day Current packs/day: 0.00 Average packs/day: 0.5 packs/day for 35.0 years (17.5 ttl pk-yrs) Types: Cigarettes Start date: 11/08/1974 Last attempt to quit: 11/08/2009 Years since quittin.5 Smokeless tobacco: Never Tobacco comments: tried wellbutrin, didn't tolerate patch, would consider Chantix but insurance doesn't cover Substance Use Topics Alcohol use: No Drug use: Yes Types: Marijuana Comment: caffeine Review of Systems Constitutional: Negative for chills and fever. HENT: Negative for congestion, ear pain and sore throat. Respiratory: Positive for cough, shortness of breath and wheezing. Cardiovascular: Negative for chest pain. Gastrointestinal: Negative for diarrhea and vomiting. Neurological: Positive for headaches. Objective BP 126/80 Pulse 100 Temp 36.8 ?C (98.2 ?F) Resp 18 Wt 77.8 kg (171 lb 8.3 oz) SpO2 94% BMI 28.54 kg/m? Physical Exam Vitals and nursing note reviewed. Constitutional: General: She is not in acute distress. Appearance: Normal appearance. She is not toxic-appearing. HENT: Right Ear: Tympanic membrane and ear canal normal. Left Ear: Tympanic membrane normal. Nose: Nose normal. Mouth/Throat: Mouth: Mucous membranes are moist. Eyes: Conjunctiva/sclera: Conjunctivae normal. Cardiovascular: Rate and Rhythm: Normal rate and regular rhythm. Pulmonary: Effort: Pulmonary effort is normal. Breath sounds: Wheezing (Mild expiratory wheeze right lung) present. No rhonchi or rales. Skin: General: Skin is warm and dry. Neurological: Mental Status: She is alert. Assessment and Plan ASSESSMENT/PLAN: 1. Acute cough - ICD9: 786.2, ICD10: R05.1 (primary diagnosis) - XR CHEST 2V FRONTAL/LAT-no acute radiographic abnormality. -Treat for COPD exacerbation -Rx doxycycline -Albuterol nebulizer solution per patient request. She has nebulizer at home. -Discussed prednisone, but patient states she does not really remember it helping in the past. -Follow-up if no improvement. 2. COPD with exacerbation (HCC) - ICD9: 491.21, ICD10: J44.1 - XR CHEST 2V FRONTAL/LAT Diagnosis and treatment plan were discussed and questions were answered to the patient's satisfaction. Pt acknowledged understanding of tj (more content not included)...[facility]11-26-2024 History of Present illness Narrative* Roxaan Garcia PA - 06/05/2024 1:48 PM EST This note was created using Panravenriter. Subjective Giovanni Lomax is a 69 year old female. HPI 69-year-old female with PMH of COPD presents for cough, chest congestion, shortness of breath. Patient states that she has had a cough for the past 2 weeks. She is coughing up some phlegm. She does have history of COPD and is a smoker. She states she always has a little cough, but her cough is worse. She states she feels a little more short of breath than normal. She does have a nebulizer at home, but does not have any solution for it. She does have inhalers that she has been using. She denies any chest pain. No fevers. No nasal congestion. She has had a headache on and off as well. No sick contacts that she is aware of. No other complaint. PAST MEDICAL HISTORY Diagnosis Date Essential hypertension, benign 1974 diagnosed age 19 Other and unspecified hyperlipidemia Other chest pain Jun 2005 non-cardiac CP, stress test normal Other forms of migraine Restless legs syndrome (RLS) 2006 Senile osteoporosis 2006 Tobacco use disorder PAST SURGICAL HISTORY Procedure Laterality Date EGD TRANSORAL BIOPSY SINGLE/MULTIPLE 12/28/2007 gastritis OOPHORECTOMY PARTIAL/TOTAL UNI/BI Oophorectomy - bilateral, due to recurrent cysts VAGINAL HYSTERECTOMY UTERUS 250 GM/< 1982 menorrhagia - no cancer ALLERGIES Patient has no known allergies. MEDICATIONS carbamide peroxide (DEBROX) 6.5 % otic solution Use 5 Drops in both ears twice daily. lisinopril (ZESTRIL, PRINIVIL) 5 mg tablet Take 5 mg by mouth. ticagrelor (BRILINTA) 90 mg tablet Take by mouth. losartan (COZAAR) 50 mg tablet Take 50 mg by mouth once daily. pravastatin 80 mg tablet Take 1 tablet by mouth once daily. aspirin 81 mg chewable tablet Take 1 tablet by mouth once daily. doxycycline monohydrate 100 mg tablet Take 1 tablet by mouth two times a day for 7 days. albuterol (PROVENTIL) 2.5 mg /3 mL (0.083 %) nebulizer solution Use 3 mL via nebulizer every 4 hours as needed for wheezing/shortness of breath. Use over 5-15minutes. carvedilol (COREG) 3.125 mg tablet Take 1 tablet by mouth twice daily. FAMILY HISTORY Problem Relation Age of Onset Alcohol/Drug Mother Heart Father 52 of [place], developed CAD age early 40's Alcohol/Drug Father Coronary Artery Disease Father Hypertension Father Heart Brother CABG age 46, stents and [place]'s placed since Cancer Maternal Aunt pancreatic Coronary Artery Disease Brother Hypertension Brother Social History Tobacco Use Smoking status: Every Day Current packs/day: 0.00 Average packs/day: 0.5 packs/day for 35.0 years (17.5 ttl pk-yrs) Types: Cigarettes Start date: 11/08/1974 Last attempt to quit: 11/08/2009 Years since quittin.5 Smokeless tobacco: Never Tobacco comments: tried wellbutrin, didn't tolerate patch, would consider Chantix but insurance doesn't cover Substance Use Topics Alcohol use: No Drug use: Yes Types: Marijuana Comment: caffeine Review of Systems Constitutional: Negative for chills and fever. HENT: Negative for congestion, ear pain and sore throat. Respiratory: Positive for cough, shortness of breath and wheezing. Cardiovascular: Negative for chest pain. Gastrointestinal: Negative for diarrhea and vomiting. Neurological: Positive for headaches. Objective BP 126/80 Pulse 100 Temp 36.8 C (98.2 F) Resp 18 Wt 77.8 kg (171 lb 8.3 oz) SpO2 94% BMI 28.54 kg/m Physical Exam Vitals and nursing note reviewed. Constitutional: General: She is not in acute distress. Appearance: Normal appearance. She is not toxic-appearing. HENT: Right Ear: Tympanic membrane and ear canal normal. Left Ear: Tympanic membrane normal. Nose: Nose normal. Mouth/Throat: Mouth: Mucous membranes are moist. Eyes: Conjunctiva/sclera: Conjunctivae normal. Cardiovascular: Rate and Rhythm: Normal rate and regular rhythm. Pulmonary: Effort: Pulmonary effort is normal. Breath sounds: Wheezing (Mild expiratory wheeze right lung) present. No rhonchi or rales. Skin: General: Skin is warm and dry. Neurological: Mental Status: She is alert. Assessment and Plan ASSESSMENT/PLAN: 1. Acute cough - ICD9: 786.2, ICD10: R05.1 (primary diagnosis) - XR CHEST 2V FRONTAL/LAT-no acute radiographic abnormality. -Treat for COPD exacerbation -Rx doxycycline -Albuterol nebulizer solution per patient request. She has nebulizer at home. -Discussed prednisone, but patient states she does not really remember it helping in the past. -Follow-up if no improvement. 2. COPD with exacerbation (HCC) - ICD9: 491.21, ICD10: J44.1 - XR CHEST 2V FRONTAL/LAT Diagnosis and treatment plan were discussed and questions were answered to the patient's satisfaction. Pt acknowledged understanding of concepts and follow up plan. Specific signs and symptoms that would indicate the need for higher level of care were discussed in detail warranting prompt ER evaluation. KAILEY Krishnamurthy [facility] History of Present illness Narrative* Joanne Neal MD - 12/20/2023 2:45 PM EDT Images from the original note were not included. [facility] [address] [place] [address] Dept: [phone] Dept Chief Complaint Patient presents with Hip Pain Left Arm Pain Left Subjective History of Present Illness: Giovanni Lomax is a 68 y.o. female who presents today for evaluation of left hip pain. Left hip pain. Location: lateral and anterior Onset: 3 months Injury: no Quality: aching Mechanical symptoms: no Radiation of symptoms: no Severity: 6/10 at rest and 8/10 at worst Exacerbating factor(s): walking, prolonged standing, rising from a seated position, climbing/descending stairs, getting in/out of a car, and first steps out of bed Relieving factor(s): rest. Timing: all day Left arm pain. Location: Superior, lateral, surgical site. Onset: 11/2019. Injury: yes - Pt fell and needed SX in 11/2019. Closed fracture of proximal end of left humerus, 2019 Dr. Bishop. Work related? no Quality: aching, sharp, stabbing, and burning. Mechanical symptoms: no Radiation of symptoms: no Severity: 0/10 at rest and 8/10 at worst Exacerbating factor(s): Flexion, extension, reaching. Relieving factor(s): Rest. Timing: intermittently Imaging to date: X-ray December 2023 Mild degenerative changes some irregularities in the femoral head, with relatively maintained jointspace. Treatment to date: PT/OT/HEP: yes, formal physical therapy for after arm SX, 2019 . Helpful Ice: no Heat: no Medications: Tylenol: no NSAIDs: yes, Ibuprofen/Motrin/Advil, helpful Oral steroids: no Muscle relaxants: no Nerve medications: no Targeted injections: none Assistive devices: none Prior surgery: Closed fracture of proximal end of left humerus, 2019 Dr. Bishop. Occupation: Retired, Fall risk assessment: Have you had 2 or more falls in the last year? No Have you had a fall with injury in the last year? No Do you feel unsteady or worried about falling? Yes Objective Visit Vitals BP (!) 142/86 Physical Exam: General: Alert, well appearing, no acute distress. Respiratory: Breathing comfortably on room air. No respiratory distress. Skin: Warm, dry, intact. No visible rashes or erythema overlying area of focused exam. Physical Exam Musculoskeletal: Left hip: No deformity. Decreased range of motion (External range of motion 30 degrees internal range of motion 0 with pain at terminal motion). Legs: Comments: Positive Timoteo, positive fadir with decreased range of motion. Gluteus medius weakness with pain on testing External Notes No pertinent interval updates Labs No results found for: HGBA1C Lab Results Component Value Date CREATININE 0.57 11/29/2019 Imaging Images reviewed with patient today I have personally reviewed the images pertinent to the appointment today EMG/NCT N/A Procedure No procedures completed today Assessment Diagnosis Plan 1. Left hip pain XR hip left 2 or 3 views 2. Primary osteoarthritis of left hip Plan We discussed osteoarthritis of the femoral acetabular joint. We reviewed the spectrum of 1. Pills - everything from Tylenol, ibuprofen, Aleve, and pain medicines. Tumeric can be supplemented, it is likely similar to ibuprofen and is generally safe for most people to take. Turmeric is dose-dependent, higher doses being higher anti-inflammatory effect, additionally more of the turmeric will be absorbed when taken with black pepper which is often included in the [id number] supplements. 2. Physical therapy - formal physical therapy. The benefits of strengthening, endurance, flexibility, balancing, and proprioception, the combination of all of these to decrease joint pain. The benefits of physical therapy can also be helpful prior to joint replacement surgery. Bracing is rarely effective for hip arthritis. 3. Shots - corticosteroid and investigational injections. We discussed the episodic nature, and Band-Aid nature of cortisone. No more frequent than every 3-4 months, the potential for cortisone to soften articular cartilage with repetitive use. And the use as a bridge agent. Due to the proximity of the hip joint near vital structures these injections need to be provided either under ultrasound or x-ray guidance. 4. Surgery - total joint replacement. We discussed the need to progress through conservative measures before this is a viable option. After discussing all of the options and treatment plans for osteoarthritis of the hip we will proceed at this time with ultrasound-guided left femoral acetabular corticosteroid therapeutic and diagnostic injection. No follow-ups on file. Joanne Neal MD 12/20/2023 2:13 PM Please note that portions of this note may have been completed with voice recognition software. Documentation reviewed prior to signing but minor errors in museum informatics specialist may have occurred. documented in this [facility]05-03-2024 Consult note Author Amanda Ugarte [facility] November 11, 2023 11:06am Note Date/Time November 11, 2023 10:54a m [facility] Medical Records Department [address] [place] [address] Consultation - Neurology 11/11/23 1052 MR#: [id number] Acct: [id number] Name: GIOVANNI LOMAX Rep #:[id number] : 1955 68 From: Amanda Ugarte MD PCP: Dr. Leonidas Traore MD Status:A DM [facility] Location: [place] [address] Assessment and Plan: Stroke Assessment/Plan GIOVANNI LOMAX is a 68 F with a history of CAD s/p stent, COPD who presents forevaluation of transient left arm weakness and slurred speech that has resolved. Not TNK or IR candidate. Neurological examination shows Intact examination Neuroimaging shows No acute stroke. CTA: Moderate R ICA origin and mild left ICA stenosis. Possible symptomatic R ICA disease. In addition has intracranial atheroscrosis. LDL: 139 HbA1c: 5.6 Continue ASA/Plavix for now Continue statin for HLD. F/up formal ECHO result Consider Vascular surgery evaluation for ICA stenosis Thanks for the consult. I spent 40 minutes in evaluation of this patient. HPI Consult Data Date of Consult: 11/11/23 HPI Narrative HPI Narrative: GIOVANNI LOMAX, is a 68 F with CAD s/p stents, COPD who presents to ED with slurred speech, mild language deficit along with left arm weakness started 40 minutes prior to arrival about 1 PM. Patient is accompanied with her . Her said symptoms lasted for about few minutes but as per ED physician lasted within 10 minutes. She had similar instance about 2 to 3 days ago with left arm weakness that also lasted for few minutes on that occasion. By that time patient came to ED NIH stroke score 0. Denies other symptoms. Occasionally misses re medications. Continue sto smoke. has tried quitting in the past. [facility] History (Updated 11/10/23 @ 16:25 by Linda Morgan) Anxiety Anxiety and depression Atherosclerotic heart disease of robinson coronary artery without angina pectoris Chronic pain Colon cancer screening COPD (chronic obstructive pulmonary disease) Depression Flu vaccine need Fracture Health care maintenance History of fracture of clavicle Hyperlipidemia Hypertension ICD (implantable cardioverter-defibrillator) in place Left hand pain Myocardial infarct Osteoporosis Patient noncompliance Pre-op chest exam Smoker ST elevation myocardial infarction (STEMI) Tobacco abuse Home Medications aspirin 81 mg tablet,delayed release 81 mg PO DAILY@0800 #30 tabs 01/12/19 [Rx Last Taken Unknown] atorvastatin 80 mg tablet 80 mg PO QHS #90 tabs 04/29/23 [Rx Last Taken Unknown] clopidogrel 75 mg tablet (Plavix) 75 mg PO DAILY #90 tabs 04/29/23 [Rx Last Taken Unknown] hydrochlorothiazide 25 mg tablet 25 mg PO DAILY #90 tabs 04/29/23 [Rx Last Taken Unknown] losartan 100 mg tablet 100 mg PO DAILY dose increase #90 tabs 04/29/23 [Rx Last Taken Unknown] metoprolol tartrate 25 mg tablet 25 mg PO BID #180 tabs 04/29/23 [Rx Last Taken Unknown] nitroglycerin 0.4 mg sublingual tablet 0.4 mg sublingual Q5M PRN Chest Pain #25 tabs 04/29/23 [Rx Last Taken Unknown] amlodipine 10 mg tablet 10 mg PO DAILY #90 tabs 05/30/23 [Rx Last Taken Unknown] albuterol sulfate 90 mcg/actuation aerosol inhaler 1 - 2 puff inhalation Q6H PRNPRN Sob &/Or Wheezing #8.5 grams 08/08/23 [Rx Last Taken Unknown] pramipexole 1.5 mg tablet,extended release 24 hr 1.5 mg PO QHS restless legs #90tabs 11/08/23 [Rx Last Taken Unknown] albuterol sulfate 90 mcg/actuation aerosol inhaler (ProAir HFA) 2 inh [id number] PRN shortness of breath or wheezing 11/10/23 [History Last Taken Unknown] Allergy/AdvReac Type Severity Reaction Status Date / Time No Known Allergies Allergy Verified 10/31/23 10:20 Family History Father , 52 Myocardial infarction Heart disease Hyperlipemia Brother Myocardial infarction CAD (coronary artery disease) CABG and stents Mother Arthritis Depression Osteoporosis Seizures Son Suicide Depression Other Cancer Surgical History History of hysterectomy History of oophorectomy History of shoulder surgery History of tonsillectomy Stented coronary artery (01/10/19) Social History housing: house Smoking Status: Current every day smoker tobacco type: cigarettes Tobacco: How many years used: 50 alcohol intake: current alcohol intake frequency: holidays/special occasions only Alcohol type: wine substance use type: marijuana caffeine: Yes Type: coffee Number of servings: 3 what type of physical activity do you participate in: none Vital Signs Vital Signs Vital Signs: 11/10/23 14:02 11/10/23 14:12 11/10/23 14:35 Temperature 99 F Temperature Source Oral Pulse Rate 92 74 Pulse Strength Respiratory Rate 14 17 Respiratory Effort Respiratory Depth Respiratory Pattern Blood Pressure 189/158 H 170/105 H Blood Pressure Mean 168 126 Blood Pressure Source Blood Pressure Position Blood Pressure Location Pulse Ox 95 95 94 Oxygen Delivery Method Room Air Room Air Room Air 11/10/23 15:01 11/10/23 15:05 11/10/23 15:30 Temperature Temperature Source Pulse Rate 73 74 72 Pulse Strength Respiratory Rate 18 16 16 Respiratory Effort Respiratory Depth Respiratory Pattern Blood Pressure 150/80 H 150/81 H 144/86 H Blood Pressure Mean 103 104 105 Blood Pressure Source Blood Pressure Position Blood Pressure Location Pulse Ox 94 98 94 Oxygen Delivery Method Room Air Room Air 11/10/23 16:00 11/10/23 16:06 11/10/23 16:26 Temperature 98 F 98.6 F Temperature Source Oral Pulse Rate 64 65 65 Pulse Strength Respiratory Rate 16 16 18 Respiratory Effort Respiratory Depth Respiratory Pattern Blood Pressure 146/75 H 146/75 H 164/91 H Blood Pressure Mean 98 98 115 Blood Pressure Source Monitor Blood Pressure Position Supine Blood Pressure Location Right Arm Pulse Ox 98 98 95 Oxygen Delivery Method Room Air Room Air 11/10/23 16:48 11/10/23 17:27 11/10/23 20:40 Temperature 98.6 F Temperature Source Oral Pulse Rate 64 Pulse Strength Respiratory Rate 18 Respiratory Effort Normal Non-Labored Respiratory Depth Normal Respiratory Pattern Normal Blood Pressure 164/91 H Blood Pressure Mean 115 Blood Pressure Source Blood Pressure Position Blood Pressure Location Pulse Ox 95 95 Oxygen Delivery Method Room Air Room Air Room Air 11/10/23 20:26 11/10/23 21:43 11/10/23 22:00 Temperature 98.1 F Temperature Source Oral Pulse Rate 65 65 Pulse Strength Normal (2+) Respiratory Rate 14 Respiratory Effort Respiratory Depth Respiratory Pattern Blood Pressure 133/81 H 133/81 H Blood Pressure Mean 98 Blood Pressure Source Monitor Blood Pressure Position Semi-Fowlers Blood Pressure Location Right Arm Pulse Ox 94 Oxygen Delivery Method Room Air 11/10/23 20:09 11/10/23 20:46 11/11/23 00:26 Temperature 98.1 F 98.2 F Temperature Source Oral Oral Pulse Rate 65 53 L Pulse Strength Respiratory Rate 14 14 Respiratory Effort Normal Non-Labored Respiratory Depth Normal Respiratory Pattern Normal Blood Pressure 133/81 H 123/64 H Blood Pressure Mean 98 83 Blood Pressure Source Monitor Blood Pressure Position Semi-Fowlers Blood Pressure Location Right Arm Pulse Ox 94 93 Oxygen Delivery Method Room Air Room Air Room Air 11/11/23 03:22 11/11/23 03:53 11/11/23 08:22 Temperature 98.1 F Temperature Source Oral Pulse Rate 63 64 Pulse Strength Respiratory Rate 16 Respiratory Effort Normal Non-Labored Respiratory Depth Normal Respiratory Pattern Normal Blood Pressure 135/86 H Blood Pressure Mean 102 Blood Pressure Source Monitor Blood Pressure Position Semi-Fowlers Blood Pressure Location Right Arm Pulse Ox 93 Oxygen Delivery Method Room Air Room Air 11/11/23 09:00 11/11/23 09:52 11/11/23 06:56 Temperature 98.1 F 98.1 F Temperature Source Oral Oral Pulse Rate 64 64 Pulse Strength Respiratory Rate 16 16 Respiratory Effort Respiratory Depth Respiratory Pattern Blood Pressure 164/83 H 164/83 H Blood Pressure Mean 110 110 Blood Pressure Source Monitor Blood Pressure Position Semi-Fowlers Blood Pressure Location Right Arm Pulse Ox 93 93 96 Oxygen Delivery Method Room Air Room Air Room Air Weight Weight: 77 kg Body Mass Index (BMI) 29.1 EEG Results Procedure Details EEG Procedure Details: GIOVANNI LOMAX is a 68 year old F with a past medical history of , who presents for evaluation of Electroencephalogram on DATE at TIME NIHSS NIHSS Nursing Documentation NIHSS Nursing Documentation: NIHSS: Ischemic Stroke/TIA Start: 11/10/23 16:20 Text: For PCU Patients: NIH and Neuro Check every 4 Status: Complete hours, PRN and with change in RN caregiver. Freq: [id number] Protocol: Activity Type Activity Date Activity User E-sign Co-sign Detail Recorded Client Recorded Date Recorded By Document 11/11/23 00:26 REI Desktop 11/11/23 00:27 REI 11/11/23 00:26 NIH Stroke Scale [NIHSS] A score of 0 is normal or asymptomatic . Total possible score is 42. Inpatient: RN or Physician to activate a stroke alert for onset of new stroke symptoms or with NIHSS increase >/= 3 points. Following change in neurological status, NIHSS will be performed per physician order or more frequently PRN. -1a. Level of Consciousness Alert; keenly responsive -1b. LOC Questions Answers BOTH questions correctly. -1c. LOC Commands Performs both tasks correctly . -2. Best Gaze Normal -3. Visual No visual loss -4. Facial Palsy Normal symmetrical movements -5a. Left Arm No drift; arm holds 90 (or 45 ) degrees for full 10 seconds -5b. Right Arm No drift; arm holds 90 (or 45 ) degrees for full 10 seconds -6a. Left Leg No drift; leg holds 30-degree position for full 5 seconds -6b. Right Leg No drift; leg holds 30-degree position for full 5 seconds -7. Limb Ataxia Absent -8. Sensory Normal; no sensory loss -9. Best Language No aphasia; normal -10. Dysarthria Normal -11. Extinction and Inattention No abnormality -Total 0 Query Text:A score of 0 is normal or asymptomatic. Total possible score is 42 . ED: Notify Physician for NIHSS increase by > / = 3 points. Inpatient: RN or Physician to activate a stroke alert for NIHSS increase of > / = 3 points. Coma Scale [Assess] -Eye Opening Spontaneous -Motor Obeys Commands -Verbal Oriented [Total] -Coma Scale Total 15 NIHSS 1a. Level of Consciousness: Alert; keenly responsive 1b. LOC Questions: Answers BOTH questions correctly. 1c. LOC Commands: Performs both tasks correctly. 2. Best Gaze: Normal 3. Visual: No visual loss 4. Facial Palsy: Normal symmetrical movements 5a. Left Arm: No drift; arm holds 90 (or 45) degrees for full 10 seconds 5b. Right Arm: No drift; arm holds 90 (or 45) degrees for full 10 seconds 6a. Left Leg: No drift; leg holds 30-degree position for full 5 seconds 6b. Right Leg: No drift; leg holds 30-degree position for full 5 seconds 7. Limb Ataxia: Absent 8. Sensory: Normal; no sensory loss 9. Best Language: No aphasia; normal 10. Dysarthria: Normal 11. Extinction and Inattention: No abnormality Total: 0 Physical Exam Const General Appearance: cooperative, comfortable, well kempt and well developed HEENT normocephalic and head/scalp atraumatic Eyes EOMs intact bilaterally Neck full ROM Resp normal respiratory effort Neuro oriented x3 Neuro Narrative: Awake, alert, OX3 Cranial nerves intact Motor: 5/5 Sensation: intact No ataxia Psych mental status grossly normal, thought process normal, cooperative, affect normal, speech normal and activity/motor behavior normal Lab / Micro Data 11/11/23 05:30 11/10/23 14:10 Labs: Laboratory Results - last 24 hr 11/10/23 14:10: WBC 9.8, RBC 5.20, Hgb 15.3 H, Hct 47.2 H, MCV 90.8, MCH 29.4, MCHC 32.4, RDW Std Deviation 45.4 H, RDW Coeff of Joleen 13.4, Plt Count 331, MPV 9.8, Immature Gran % (Auto) 0.200, Neut % (Auto) 59.6, Lymph % (Auto) 32.2, [place] % (Auto) 5.4, Eos % (Auto) 2.0, Baso % (Auto) 0.6, Absolute Neuts (auto) 5.8, Absolute Lymphs (auto) 3.15, Nucleated RBC % 0, PT 13.0, INR 1.0, APTT 27.6, Sodium 138, Potassium 4.2, Chloride 105, Carbon Dioxide 31.0, Anion Gap 2 L, BUN 15, Creatinine 0.74, Estim Creat Clear Calc 69.82, Est GFR (MDRD) Af Amer 102, Est GFR (MDRD) Non-Af 84, BUN/Creatinine Ratio 20.4 H, Glucose 111 H, Calcium 9.4, Magnesium 2.1, Troponin I High Sens 14 11/10/23 17:02: POC Glucose 110 H 11/10/23 21:48: POC Glucose 172 H 11/11/23 05:30: WBC 8.0, RBC 4.54, Hgb 13.1, Hct 41.2, MCV 90.7, MCH 28.9, MCHC 31.8 L, RDW Std Deviation 45.4 H, RDW Coeff of Joleen 13.6, Plt Count 321, MPV 10.3, Immature Gran % (Auto) 0.300, Neut % (Auto) 49.6, Lymph % (Auto) 36.8, [place] % (Auto) 8.0, Eos % (Auto) 4.3, Baso % (Auto) 1.0, Absolute Neuts (auto) 4.0, Absolute Lymphs (auto) 2.94, Nucleated RBC % 0, Triglycerides 93, Cholesterol 200, LDL Cholesterol 139 H, VLDL Cholesterol 19, HDL Cholesterol 42, TSH 0.85 11/11/23 06:23: POC Glucose 97 Imaging Radiology Impression Brain CT 11/10/23 14:05 IMPRESSION: Chronic involutional changes of the brain. N.B. : The above Results were Read Back by Marty Mari MD to Dr Carmita MD, and understanding confirmed on 11/10/2023 14:26:25 (ET). Electronically Signed: Marty Mari MD at 14:27 EDT , ADDENDUM: 11/10/23 1434 IMPRESSION: Chronic involutional changes of the brain. N.B. : The above Results were Read Back by Marty Mari MD to Dr Carmita MD, and understanding confirmed on 11/10/2023 14:26:25 (ET). Electronically Signed: Marty Mari MD at 14:27 EDT , Chest X-Ray 11/10/23 14:05 IMPRESSION: Hyperinflation. The lungs are clear. Electronically Signed: Marty Mari MD at 14:58 EDT , Head/Neck CTA 11/10/23 14:20 IMPRESSION: Moderate degree of narrowing at the origin of the right internal carotid artery. Mild degree of narrowing at the origin of left internal carotid artery. Nonvisualization of the right A1 segment of the anterior cerebral artery. N.B. : The above Results were Read Back by Marty Mari MD to Dr Carmita MD, and understanding confirmed on 11/10/2023 14:45:00 (ET). Electronically Signed: Marty Mari MD at 14:46 EDT , ADDENDUM: 11/10/23 1453 IMPRESSION: Moderate degree of narrowing at the origin of the right internal carotid artery. Mild degree of narrowing at the origin of left internal carotid artery. Nonvisualization of the right A1 segment of the anterior cerebral artery. N.B. : The above Results were Read Back by Marty Mair MD to Dr Carmita MD, and understanding confirmed on 11/10/2023 14:45:00 (ET). Electronically Signed: Marty Mari MD at 14:46 EDT , Brain MRI 11/10/23 16:20 IMPRESSION: Involutional changes of the brain, as described above. No acute infarct. Electronically Signed: Rome Flores MD at 23:35 EDT , Active Medications Active Medications Active Medications: Current Medications Generic Name Dose Route Start Last Admin Trade Name Freq PRN Reason Stop Dose Admin Acetaminophen 650 mg 11/10/23 16:20 Acetaminophen 325 Mg Tablet PO Q4H PRN PRN Pain 1-10 Or Fever>99.6 Amlodipine Besylate 10 mg 11/11/23 10:00 11/11/23 08:23 Amlodipine 10 Mg Tablet PO 10 mg DAILY TRUPTI Administration Protocol Aspirin 81 mg 11/10/23 16:20 11/11/23 08:22 Aspirin 81 Mg Tab.Chew PO 81 mg BREAKFAST TRUPTI Administration Atorvastatin Calcium 80 mg 11/10/23 22:00 11/10/23 21:43 Atorvastatin Calcium 80 Mg Tablet PO 80 mg QHS TRUPTI Administration Clopidogrel Bisulfate 75 mg 11/11/23 10:00 11/11/23 08:23 Clopidogrel Bisulfate 75 Mg Tablet PO 75 mg DAILY TRUPTI Administration Enoxaparin Sodium 40 mg 11/10/23 16:20 11/11/23 08:28 Enoxaparin 40 Mg/0.4 Ml Syringe SC Not Given DAILY [facility] Hydralazine HCl 5 mg 11/10/23 16:20 Hydralazine 20 Mg/Ml Vial IV 11/11/23 16:20 Q30M PRN maintain BP parameters with HR <60 Hydrochlorothiazide 25 mg 11/11/23 10:00 11/11/23 08:22 Hydrochlorothiazide 25 Mg Tablet PO 25 mg DAILY TRUPTI Administration Protocol Sodium Chloride 250 mls @ 15 mls/hr 11/10/23 16:19 IV .[id number] PRN Additional IVPB Infusion Sodium Chloride 250 mls @ 15 mls/hr 11/10/23 16:19 IV .[id number] PRN Saline Flush Labetalol HCl 20 mg 11/10/23 14:05 11/10/23 14:32 Labetalol (Prefilled) 20 Mg/4 Ml IV 11/11/23 14:05 20 mg X1 PRN Administration Blood Pressure Labetalol HCl 10 - 20 mg 11/10/23 16:20 Labetalol (Prefilled) 20 Mg/4 Ml IV 11/11/23 16:20 Q10M PRN PRN maintain BP parameters with HR >/=60 Metoprolol Tartrate 25 mg 11/10/23 22:00 11/11/23 08:22 Metoprolol Tartrate 25 Mg Tablet PO 25 mg BID [facility] Administration Protocol Nitroglycerin 0.4 mg 11/10/23 16:20 Nitroglycerin (Inpatient Use) 0.4 Mg Tab.Subl SL Q5M PRN CARDIAC/CHEST PAIN Ondansetron HCl 4 mg 11/10/23 16:20 Ondansetron 4 Mg/2 Ml Vial IV Q8H PRN PRN NAUSEA/VOMITING Pramipexole Dihydrochloride 1.5 mg 11/10/23 22:00 11/10/23 21:42 Pramipexole Di-Hcl 1 Mg Tablet PO 1.5 mg QHS TRUPTI Administration Senna/Docusate Sodium 2 tablet 11/10/23 16:20 Senna/Docusate Sodium 1 Tablet PO BID PRN PRN Constipation Sodium Chloride 10 - 40 ml 11/10/23 16:19 11/11/23 00:20 0.9% Saline Lock 10 Ml Syringe IV 10 ml UD PRN Administration SALINE FLUSH 11/11/23 1106 <Electronically signed by Amanda Ugarte MD> Cosigner Signature (if applicable): CC: Dr. Leonidas Traore MD~ Signed [facility] Work Phone: 1(549) 105-344205-02-2024 Discharge summary Author Nadja Vizcarra [facility] November 10, 2023 4:52pm Note Date/Time November 10, 2023 2:12pm [facility] Medical Records Department [address] [place] [address] Emergency Department Summary 11/10/23 MR#: [id number] Acct: [id number] Name: GIOVANNI LOMAX Rep #:[id number] : 1955 68 From: Nadja Vizcarra MD PCP: Dr. Leonidas Traore MD Status:A DM CHANTAL Location: [place] [address] HPI History of Present Illness Chief Complaint: Stroke Alert Informant: patient Onset/Context/Timing Onset: Today Narrative Narrative: Patient presents secondary to slurred speech and left arm weakness that started approximately 40 minutes prior to arrival. states symptoms seem to resolve within 10 minutes. Patient states that she had problems using her left arm a couple days ago that lasted just a brief time also. [facility] Medical History Anxiety and depression Atherosclerotic heart disease of robinson coronary artery without angina pectoris Chronic pain Colon cancer screening COPD (chronic obstructive pulmonary disease) Depression Flu vaccine need Fracture Health care maintenance History of fracture of clavicle Hyperlipidemia Hypertension Left hand pain Osteoporosis Patient noncompliance Pre-op chest exam ST elevation myocardial infarction (STEMI) Tobacco abuse Home Medications aspirin 81 mg tablet,delayed release 81 mg PO DAILY@0800 #30 tabs 01/12/19 [Rx Last Taken Unknown] duloxetine 60 mg capsule,delayed release 60 mg PO DAILY #60 caps 12/15/21 [Rx Last Taken Unknown] potassium chloride 20 mEq tablet,extended release(part/cryst) 20 meq PO DAILY #2tabs 05/05/22 [Rx Last Taken Unknown] atorvastatin 80 mg tablet 80 mg PO QHS #90 tabs 04/29/23 [Rx Last Taken Unknown] clopidogrel 75 mg tablet (Plavix) 75 mg PO DAILY #90 tabs 04/29/23 [Rx Last Taken Unknown] hydrochlorothiazide 25 mg tablet 25 mg PO DAILY #90 tabs 04/29/23 [Rx Last Taken Unknown] losartan 100 mg tablet 100 mg PO DAILY dose increase #90 tabs 04/29/23 [Rx Last Taken Unknown] metoprolol tartrate 25 mg tablet 25 mg PO BID #180 tabs 04/29/23 [Rx Last Taken Unknown] nitroglycerin 0.4 mg sublingual tablet 0.4 mg sublingual Q5M PRN Chest Pain #25 tabs 04/29/23 [Rx Last Taken Unknown] amlodipine 10 mg tablet 10 mg PO DAILY #90 tabs 05/30/23 [Rx Last Taken Unknown] albuterol sulfate 90 mcg/actuation aerosol inhaler 1 - 2 puff inhalation Q6H PRNPRN Sob &/Or Wheezing #8.5 grams 08/08/23 [Rx Last Taken Unknown] pramipexole 1.5 mg tablet,extended release 24 hr 1.5 mg PO QHS restless legs #90tabs 11/08/23 [Rx Last Taken Unknown] Allergy/AdvReac Type Severity Reaction Status Date / Time No Known Allergies Allergy Verified 10/31/23 10:20 Family History Father , 52 Myocardial infarction Heart disease Hyperlipemia Brother Myocardial infarction CAD (coronary artery disease) CABG and stents Mother Arthritis Depression Osteoporosis Seizures Son Suicide Depression Other Cancer Surgical History History of hysterectomy History of oophorectomy History of shoulder surgery History of tonsillectomy Stented coronary artery (01/10/19) Social History (Updated 11/10/23 @ 14:13 by Molly Whaley) housing: house Smoking Status: Current every day smoker tobacco type: cigarettes Tobacco: How many years used: 50 alcohol intake: current alcohol intake frequency: holidays/special occasions only Alcohol type: wine substance use type: marijuana caffeine: Yes Type: coffee Number of servings: 3 what type of physical activity do you participate in: none ROS ROS ED Constitutional Constitutional ED: Denies fever(s) Eyes Eyes: Denies change in vision or discharge from eye(s) ENT ENT ED: Denies discharge from eye(s), rhinorrhea or sore throat Cardiovascular Cardiovascular: Denies chest pain or palpitations Respiratory/Chest Respiratory/Chest: Denies cough or dyspnea Gastrointestinal Gastrointestinal: Denies abdominal pain, nausea or vomiting Musculoskeletal Musculoskeletal: Denies back pain or extremity pain Integumentary Denies Abrasions or rash Neurologic Neurologic: Denies headache(s) or weakness Psychiatric Psychiatric: Denies anxiety or depression Allergic/Immunologic Allergic/Immunologic ED: Denies lip swelling or urticaria EXAM Physical Exam Const Vital Signs: 11/10/23 14:02 11/10/23 14:12 11/10/23 14:35 Temperature 99 F Temperature Source Oral Pulse Rate 92 74 Respiratory Rate 14 17 Blood Pressure 189/158 H 170/105 H Blood Pressure Mean 168 126 Pulse Ox 95 95 94 Oxygen Delivery Method Room Air Room Air Room Air Positive well nourished and well developed General Appearance ED: well developed HEENT Reports moist mucous membranes Eyes EOMs intact bilaterally Chest Wall inspection of chest normal and palpation of chest normal Resp normal respiratory effort and clear to auscultation bilaterally Cardio Rate: regular rate Rhythm: regular rhythm GI soft to palpation and non-tender Extremity normal to inspection Neuro oriented x3 and no sensory deficits noted Neuro Narrative: NIH equals 0 on arrival to ED. Motor Exam: strength 5/5 throughout Psych mental status grossly normal Skin no wounds MDM MDM MDM Narrative Medical decision making narrative: Patient's NIH score is currently negative. Given her symptoms within a 24-hour window stroke alert was initiated. Patient placed on conveyor monitor. EKG obtained to evaluate for cardiac arrhythmia/ischemia. IV line established. Labwork obtained to evaluate for leukocytosis, anemia, and electrolyte derangement. Patient had blood work obtained just a couple weeks ago with normal renal function. She will be sent for emergent CT head along with CTA of the head and neck. History & Record Review Discussion w/independent historian: Patient and Significant other Additional record(s) reviewed:: Prior labs Lab Data Attestation: I reviewed the patient's lab results. Labs: Laboratory Results - last 24 hr 11/10/23 14:10 WBC 9.8 RBC 5.20 Hgb 15.3 H Hct 47.2 H MCV 90.8 MCH 29.4 MCHC 32.4 RDW Std Deviation 45.4 H RDW Coeff of Joleen 13.4 Plt Count 331 MPV 9.8 Immature Gran % (Auto) 0.200 Neut % (Auto) 59.6 Lymph % (Auto) 32.2 [place] % (Auto) 5.4 Eos % (Auto) 2.0 Baso % (Auto) 0.6 Absolute Neuts (auto) 5.8 Absolute Lymphs (auto) 3.15 Nucleated RBC % 0 PT 13.0 INR 1.0 APTT 27.6 Sodium 138 Potassium 4.2 Chloride 105 Carbon Dioxide 31.0 Anion Gap 2 L BUN 15 Creatinine 0.74 Estim Creat Clear Calc 69.82 Est GFR (MDRD) Af Amer 102 Est GFR (MDRD) Non-Af 84 BUN/Creatinine Ratio 20.4 H Glucose 111 H Calcium 9.4 Troponin I High Sens 14 Radiography Chest X-Ray - ED: 1 View, Read by ED Physician, Chronic Changes and No Infiltrates Diagnostic Testing: Clinical Impression(s) from Imaging Studies Brain CT 11/10/23 14:05 IMPRESSION: Chronic involutional changes of the brain. N.B. : The above Results were Read Back by Marty Mari MD to Dr Carmita MD, and understanding confirmed on 11/10/2023 14:26:25 (ET). Electronically Signed: Marty Mari MD at 14:27 EDT , ADDENDUM: 11/10/23 1434 IMPRESSION: Chronic involutional changes of the brain. N.B. : The above Results were Read Back by Marty Mari MD to Dr Carmita MD, and understanding confirmed on 11/10/2023 14:26:25 (ET). Electronically Signed: Marty Mari MD at 14:27 EDT , Head/Neck CTA 11/10/23 14:20 IMPRESSION: Moderate degree of narrowing at the origin of the right internal carotid artery. Mild degree of narrowing at the origin of left internal carotid artery. Nonvisualization of the right A1 segment of the anterior cerebral artery. N.B. : The above Results were Read Back by Marty Mari MD to Dr Carmita MD, and understanding confirmed on 11/10/2023 14:45:00 (ET). Electronically Signed: Marty Mari MD at 14:46 EDT , ADDENDUM: 11/10/23 1453 IMPRESSION: Moderate degree of narrowing at the origin of the right internal carotid artery. Mild degree of narrowing at the origin of left internal carotid artery. Nonvisualization of the right A1 segment of the anterior cerebral artery. N.B. : The above Results were Read Back by Marty Mari MD to Dr Carmita MD, and understanding confirmed on 11/10/2023 14:45:00 (ET). Electronically Signed: Marty Mari MD at 14:46 EDT , EKG Initial EKG: Attestation: I personally reviewed and interpreted this EKG as follows: Interpretation: Sinus Rhythm (Sinus at 72 with no acute ischemia.) Treatment and Re-Evaluation Narrative: CBC was normal white count 9.8 with a hemoglobin concentrated at 15.3. Differential unremarkable. Coags are normal. Chemistry studies are unremarkable with a glucose of 111. Troponin is normal at 14. EKG is sinus rhythm at 72 bpm with PACs. No acute ischemia noted. Portable chest x-ray per myinterpretation was chronic changes with no focal infiltrate. Noncontrast head CT reveals chronic involutional changes. Old lacunar infarcts were noted. CTA of the head and neck reveals moderate stenosis at the origin of the right carotid between 50 and 69%. No LVO. Patient was seen and evaluated by [facility] neurology. They agree that her symptoms are consistent with a TIA. As long as her CTA was negative plan was to admit her locally for further stroke workup. I will speak with the hospitalist. Discharge Plan Triage Chief Complaint: Stroke Alert Other Complaint: Neuro S/Sx ED Provider: Nadja Vizcarra Dx/Rx/DC Orders Clinical Impression: Brain TIA Prescriptions: No Action duloxetine 60 mg capsule,delayed release(DR/EC) 60 mg PO DAILY Qty: 60 2RF Rx Instructions: Take 30 mg daily x 1 week then increase to 60 mg daily. aspirin 81 MG tablet 81 mg PO DAILY@0800 Qty: 30 0RF potassium chloride 20 mEq tablet,ER particles/crystals 20 meq PO DAILY Qty: 2 0RF atorvastatin 80 mg tablet 80 mg PO QHS Qty: 90 3RF clopidogrel [Plavix] 75 mg tablet 75 mg PO DAILY Qty: 90 3RF hydrochlorothiazide 25 mg tablet 25 mg PO DAILY Qty: 90 3RF losartan 100 mg tablet 100 mg PO DAILY Qty: 90 3RF metoprolol tartrate 25 mg tablet 25 mg PO BID Qty: 180 3RF nitroglycerin 0.4 mg tablet, sublingual 0.4 mg sublingual Q5M PRN (Reason: Chest Pain) Qty: 25 3RF amlodipine 10 mg tablet 10 mg PO DAILY Qty: 90 3RF albuterol sulfate 90 mcg/actuation HFA aerosol inhaler 1 - 2 puff inhalation Q6H PRN PRN (Reason: Sob &/Or Wheezing) Qty: 8.5 0RF pramipexole 1.5 mg tablet extended release 24 hr 1.5 mg PO QHS Qty: 90 0RF Primary Care Provider: Leonidas Traore Referrals: Leonidas Traore MD [Primary Care Provider] - Disposition Disposition: Acute Care Hospital [facility] What to do if you have Problems For any increased pain, shortness of breath, bleeding, nausea or vomiting, chestpain, or any unexpected problems, contact your Primary Care Provider. Call [facility] ([phone]) or report to the closest Emergency Room. Call 911 if necessary. 11/10/231651 <Electronically signed by Nadja Vizcarra MD> Cosigner Signature (if applicable): CC: Dr. Leonidas Traore MD ~ Signed [facility] Work Phone: 1(522) 455-933305-02-2024 History and physical note Author Rafael Arreaga [facility] November 10, 2023 4:01pm Note Date/Time November 10, 2023 3:28pm [facility] Medical Records Department [address] [place] [address] H&P Exam - Hospitalist 11/10/23 1525 MR#: [id number] Acct: [id number] Name: GIOVANNI LOMAX Rep #:[id number] : 1955 68 From: Rafael Sr PCP: Dr. Leonidas Traore MD Status:A DM CHANTAL Location: [place] [address] HPI - General General Date of Admission: 11/10/23 Date of Service: 11/10/23 Chief Complaint: Left arm weakness and language deficit about 1 PM today HPI Narrative GIOVANNI LOMAX, is a 68 F With no prior history of stroke came to ED with slurred speech, mild language deficit along with left arm weakness started 40 minutes prior to arrival about 1 PM. Patient is accompanied with her . Her said symptoms lasted for about few minutes but as per ED physician lasted within 10 minutes. She had similar instance about 2 to 3 days ago with left arm weakness that also lasted for few minutes on that occasion. By that time patient came to ED NIH stroke score 0. No nausea vomiting vertigo. Patient has history of coronary artery status post stents, COPD and still smokesa pack per day. Blood pressure in ED was high 189/158 and had labetalol [address] head does not show acute stroke. Patient is further admitted. Labs, vitals, and imaging and EKG all reviewed discussed assessment and plan. [facility] History Anxiety and depression Atherosclerotic heart disease of robinson coronary artery without angina pectoris Chronic pain Colon cancer screening COPD (chronic obstructive pulmonary disease) Depression Flu vaccine need Fracture Health care maintenance History of fracture of clavicle Hyperlipidemia Hypertension Left hand pain Osteoporosis Patient noncompliance Pre-op chest exam ST elevation myocardial infarction (STEMI) Tobacco abuse Home Medications aspirin 81 mg tablet,delayed release 81 mg PO DAILY@0800 #30 tabs 01/12/19 [Rx Last Taken Unknown] atorvastatin 80 mg tablet 80 mg PO QHS #90 tabs 04/29/23 [Rx Last Taken Unknown] clopidogrel 75 mg tablet (Plavix) 75 mg PO DAILY #90 tabs 10/20/23 [Rx Last Taken Unknown] hydrochlorothiazide 25 mg tablet 25 mg PO DAILY #90 tabs 04/29/23 [Rx Last Taken Unknown] losartan 100 mg tablet 100 mg PO DAILY dose increase #90 tabs 04/29/23 [Rx Last Taken Unknown] metoprolol tartrate 25 mg tablet 25 mg PO BID #180 tabs 04/29/23 [Rx Last Taken Unknown] nitroglycerin 0.4 mg sublingual tablet 0.4 mg sublingual Q5M PRN Chest Pain #25 tabs 04/29/23 [Rx Last Taken Unknown] amlodipine 10 mg tablet 10 mg PO DAILY #90 tabs 05/30/23 [Rx Last Taken Unknown] albuterol sulfate 90 mcg/actuation aerosol inhaler 1 - 2 puff inhalation Q6H PRNPRN Sob &/Or Wheezing #8.5 grams 08/08/23 [Rx Last Taken Unknown] pramipexole 1.5 mg tablet,extended release 24 hr 1.5 mg PO QHS restless legs #90tabs 11/08/23 [Rx Last Taken Unknown] albuterol sulfate 90 mcg/actuation aerosol inhaler (ProAir HFA) 2 inh [id number] PRN shortness of breath or wheezing 11/10/23 [History Last Taken Unknown] Allergy/AdvReac Type Severity Reaction Status Date / Time No Known Allergies Allergy Verified 10/31/23 10:20 Family History Father , 52 Myocardial infarction Heart disease Hyperlipemia Brother Myocardial infarction CAD (coronary artery disease) CABG and stents Mother Arthritis Depression Osteoporosis Seizures Son Suicide Depression Other Cancer Surgical History History of hysterectomy History of oophorectomy History of shoulder surgery History of tonsillectomy Stented coronary artery (01/10/19) Social History housing: house Smoking Status: Current every day smoker tobacco type: cigarettes Tobacco: How many years used: 50 alcohol intake: current alcohol intake frequency: holidays/special occasions only Alcohol type: wine substance use type: marijuana caffeine: Yes Type: coffee Number of servings: 3 what type of physical activity do you participate in: none ROS ROS Narrative Constitutional: Denies acute fatigue and weakness. No fever. HEENT: Reports systems reviewed and no addt'l complaints, except as documented Respiratory/Chest: History of COPD. Active smoker. No acute shortness of breath or respiratory distress or wheezing. CVS: No chest pain pressure or tightness. Gastrointestinal: Denies coffee ground emesis, hematemesis or vomiting Genitourinary: Denies burning urination or new urinary tract symptoms Musculoskeletal: Denies acute joint pain or limited range of motion. No acute injury Neurologic: Denies seizure-like symptoms. Rest as described in HPI skin: No ulcer. No rash Endocrinology: Reports systems reviewed and no addt'l complaints, except as documented Hematologic/Lymphatic: Reports systems reviewed and no addt'l complaints, exceptas documented Rest 14 ROS are negative except as mentioned in HPI Vital Signs Vital Signs Vital Signs: 11/10/23 14:02 11/10/23 14:12 11/10/23 14:35 Temperature 99 F Temperature Source Oral Pulse Rate 92 74 Respiratory Rate 14 17 Blood Pressure 189/158 H 170/105 H Blood Pressure Mean 168 126 Pulse Ox 95 95 94 Oxygen Delivery Method Room Air Room Air Room Air 11/10/23 15:01 11/10/23 15:05 Temperature Temperature Source Pulse Rate 73 74 Respiratory Rate 18 16 Blood Pressure 150/80 H 150/81 H Blood Pressure Mean 103 104 Pulse Ox 94 98 Oxygen Delivery Method Room Air Weight Weight: 171 lb 8.314 oz Body Mass Index (BMI) 29.4 Physical Exam Narrative General: Alert, Oriented x3, Cooperative HEENT: Atraumatic, PERRLA, EOMI, Normocephalic Oral: Oral mucosa moist. No Gingival or Mucosal Lesions/ Ulcerations Neck: Supple, No JVD, Negative Carotid Bruits Chest wall/Lungs: Air entry diminished in bilateral lung bases. No crepitation/rhonchi Cardiovascular: Regular rate, Regular Rhythm, Normal S1, Normal S2, systolic murmur present Abdomen: Bowel Sounds Present, Soft, Non Tender, Non-Distended : No dysuria. No renal angle tenderness. No suprapubic tenderness. Extremities: No edema, Capillary Refill Less than 3 Seconds Skin: No rashes, No breakdown Musculoskeletal: No acute tenderness to Palpation of Joints or Extremities. ROMfull and intact. Neurological: Cranial nerves II-XII grossly intact, NIH stroke scale 0. DTR 2+/4. No acute focal neurological deficit. Psych/Mental Status: Normal Affect, Appropriate. Results Lab / Micro Data 11/10/23 14:10 11/10/23 14:10 Labs: Laboratory Results - last 24 hr 11/10/23 14:10: WBC 9.8, RBC 5.20, Hgb 15.3 H, Hct 47.2 H, MCV 90.8, MCH 29.4, MCHC 32.4, RDW Std Deviation 45.4 H, RDW Coeff of Joleen 13.4, Plt Count 331, MPV 9.8, Immature Gran % (Auto) 0.200, Neut % (Auto) 59.6, Lymph % (Auto) 32.2, [place]% (Auto) 5.4, Eos % (Auto) 2.0, Baso % (Auto) 0.6, Absolute Neuts (auto) 5.8, Absolute Lymphs (auto) 3.15, Nucleated RBC % 0, PT 13.0, INR 1.0, APTT 27.6, Sodium 138, Potassium 4.2, Chloride 105, Carbon Dioxide 31.0, Anion Gap 2 L, BUN15, Creatinine 0.74, Estim Creat Clear Calc 69.82, Est GFR (MDRD) Af Amer 102, Est GFR (MDRD) Non-Af 84, BUN/Creatinine Ratio 20.4 H, Glucose 111 H, Calcium 9.4, Troponin I High Sens 14 Imaging Radiology Impression Brain CT 11/10/23 14:05 IMPRESSION: Chronic involutional changes of the brain. N.B. : The above Results were Read Back by Marty Mari MD to Dr Carmita MD, and understanding confirmed on 11/10/2023 14:26:25 (ET). Electronically Signed: Marty Mari MD at 14:27 EDT , ADDENDUM: 11/10/23 1434 IMPRESSION: Chronic involutional changes of the brain. N.B. : The above Results were Read Back by Marty Mari MD to Dr Carmita MD, and understanding confirmed on 11/10/2023 14:26:25 (ET). Electronically Signed: Marty Mari MD at 14:27 EDT , Chest X-Ray 11/10/23 14:05 IMPRESSION: Hyperinflation. The lungs are clear. Electronically Signed: Marty Mari MD at 14:58 EDT , Head/Neck CTA 11/10/23 14:20 IMPRESSION: Moderate degree of narrowing at the origin of the right internal carotid artery. Mild degree of narrowing at the origin of left internal carotid artery. Nonvisualization of the right A1 segment of the anterior cerebral artery. N.B. : The above Results were Read Back by Marty Mari MD to Dr Carmita MD, and understanding confirmed on 11/10/2023 14:45:00 (ET). Electronically Signed: Marty Mari MD at 14:46 EDT , ADDENDUM: 11/10/23 1453 IMPRESSION: Moderate degree of narrowing at the origin of the right internal carotid artery. Mild degree of narrowing at the origin of left internal carotid artery. Nonvisualization of the right A1 segment of the anterior cerebral artery. N.B. : The above Results were Read Back by Marty Mari MD to Dr Carmita MD, and understanding confirmed on 11/10/2023 14:45:00 (ET). Electronically Signed: Marty Mari MD at 14:46 EDT , Assessment & Plan Assessment/Plan (1) Brain TIA: PLAN: Plan This is a 68-year-old female is being admitted for left arm weakness, mild language deficit lasted for few minutes and resolved by the time she came to ED. 1. Most probably TIA: Patient is being admitted in PCU. CT head shows chronic involutional changes but no acute intracranial abnormality. CTA head and neck shows moderate degree of narrowing at origin of right ICA, mild degree of narrowing at origin of left ICA. Nonvisualization of right A1 segment of KEZIA. PT, OT, speech therapy/swallow evaluation and management, nursing NIH stroke scale, BP and glucose monitoring and control as per stroke protocol. TSH, A1c fasting lipid profile tomorrow AM. MRI brain and 2D echo with bubble contrast study ordered 2. History of inferior wall STEMI, CAD: Patient was last admitted in January 2019 for inferior wall STEMI with acute in-stent thrombosis after initial PCI of proximal RCA: Patient had PCI with stent on that occasion. Patient used to follow Dr. Zheng but currently she is not following any teleradiologist. Twelve-lead EKG shows normal sinus rhythm, PACs at 72 bpm, QTc 479 ms. Troponin normal. Continue home cardiac medications. No acute issues Last echo in May 2022 Left ventricular systolic function is hyperdynamic. The estimated ejection fraction is 75 %. There is mild mitral annular calcification. Extension of the mitral annular calcification onto the posterior mitral valve leaflet. Trivial mitral valve insufficiency. Trivial tricuspid valve insufficiency. The aortic valve leaflets are not well visualized, however, based upon the 2D echocardiographic images obtained there appears to be moderate focal thickening present with no obvious significant restriction or insufficiency. Epicardial fat. Right ventricular systolic pressure estimated to be 27 mmHg. No evidence for diastolic dysfunction. 2. COPD with active smoking: Patient follows Dr. Quiles. Last office visit in April 2022. Last PFT on May 2022 partially reversible severe large airways obstructive ventilatory defect with associated air trapping. 3. Hypertension:Blood pressure high but within guidelines of TIA 4. Dyslipidemia: High intensity statin. Fasting profile tomorrow AM 5. DVT prophylaxis high risk: Lovenox 40 mg subcu daily. Discontinue if platelet count drops less than 50,000 or hemoglobin less than 8 g% Living will/advanced directive/end of life care: Patient does not have living will or advanced directive. After discussion of benefits/risks procedures involved with full code, DNR CC arrest and DNR CC, the patient opted for full code. Her is next of kin Patient does want artificial life support including intubation, tube feed, ventilator and/chest compression, central venous catheter, vasopressor and DC shock if needed Total time spent in [id number] encounter in discussion of advanced directive 17 minutes. Laboratory Results 11/10/23 14:10: WBC 9.8, RBC 5.20, Hgb 15.3 H, Hct 47.2 H, MCV 90.8, MCH 29.4, MCHC 32.4, RDW Std Deviation 45.4 H, RDW Coeff of Joleen 13.4, Plt Count 331, MPV 9.8, Immature Gran % (Auto) 0.200, Neut % (Auto) 59.6, Lymph % (Auto) 32.2, [place]% (Auto) 5.4, Eos % (Auto) 2.0, Baso % (Auto) 0.6, Absolute Neuts (auto) 5.8, Absolute Lymphs (auto) 3.15, Nucleated RBC % 0, PT 13.0, INR 1.0, APTT 27.6, Sodium 138, Potassium 4.2, Chloride 105, Carbon Dioxide 31.0, Anion Gap 2 L, BUN 15, Creatinine 0.74, Estim Creat Clear Calc 69.82, Est GFR (MDRD) Af Amer 102, Est GFR (MDRD) Non-Af 84, BUN/Creatinine Ratio 20.4 H, Glucose 111 H, Calcium 9.4, Troponin I High Sens 14 Clinical Impression(s) from Imaging Studies Brain CT 11/10/23 14:05 IMPRESSION: Chronic involutional changes of the brain. Chest X-Ray 11/10/23 14:05 IMPRESSION: Hyperinflation. The lungs are clear. Head/Neck CTA 11/10/23 14:20 IMPRESSION: Moderate degree of narrowing at the origin of the right internal carotid artery. Mild degree of narrowing at the origin of left internal carotid artery. Nonvisualization of the right A1 segment of the anterior cerebral artery. Charges/Coding Visit Charges Inpatient E&M: 50746 Init Hosp L3 Procedures Hospitalists Procedures: 53177 Advncd Care Plan 30 Min 11/10/23 1601 <Electronically signed by Rafael Arreaga MD> Cosigner Signature (if applicable): CC: Dr. Leonidas Traore MD; Dr. Rafael Arreaga MD~ Signed [facility] Work Phone: [phone]) 576-536307-03-2022 Evaluation note* Diagnosis Onset Date Resolution Status MAGALLANES (dyspnea on exertion) [place] Atherosclerotic heart diseas e of [place]inson coronary artery without angina pectoris chronic Hyperlipidemia chronic Hypertension chronic Stented coronary artery January 10, 2019 ch [place] Acute exacerbation of emphysema noneactive MAGALLANES (dyspnea on exertion) [place] Nicotine dependence, cigarettes, uncomplicated acute Uncontrolled hypertension [place] [facility] Work Phone: [phone]) 400-392803-31-2022 History of Present illness Narrative* Abran Granados MD - 10/08/2021 12:51 PM EDT Patient presents with: Ear Pain: (RT) ear pain rated 2, x4 days HPI: Feeling right ear pain for 4 days. Positive symptoms: Earache, tinnitus, Negative symptoms: Cough, Sore throat, Nasal Congestion, Rhinorrhea, Fever, otorrhea, OTC: OTC pain meds PAST MEDICAL HISTORY Diagnosis Date Essential hypertension, benign 1974 diagnosed age 19 Other and unspecified hyperlipidemia Other chest pain Jun 2005 non-cardiac CP, stress test normal Other forms of migraine Restless legs syndrome (RLS) 2006 Senile osteoporosis 2006 Tobacco use disorder MEDICATIONS: Current Outpatient Medications Medication Sig lisinopril (ZESTRIL, PRINIVIL) 5 mg tablet Take 5 mg by mouth. ticagrelor (BRILINTA) 90 mg tablet Take by mouth. losartan (COZAAR) 50 mg tablet Take 50 mg by mouth once daily. carvedilol (COREG) 3.125 mg tablet Take 1 tablet by mouth twice daily. pravastatin 80 mg tablet Take 1 tablet by mouth once daily. aspirin 81 mg chewable tablet Take 1 tablet by mouth once daily. No current facility-administered medications for this visit. ALLERGIES: ALLERGIES No Known Allergies VITALS: BP 136/88 Pulse 86 Temp 36.8 C (98.2 F) Resp 16 Wt 76.5 kg (168 lb 9.6 oz) SpO2 95% BMI28.06 kg/m PHYSICAL EXAM: GEN: Pleasant, in no acute distress. HEENT: PERRL, EOMI, conjunctiva clear Ears: LTM without erythema, bulge, or effusion, right canal occluded by cerumen. TMJ non-tender Sinuses: non-tender frontal sinus, non-tender maxillary sinuses Throat: moist mucous membranes, no erythema, no exudate Neck: supple, no thyromegaly, no lymphadenopathy HEART: regular rate and rhythm, no murmurs LUNGS: clear to auscultation, no wheezes or crackles, no increased WOB ASSESSMENT/PLAN: 1. Impacted cerumen of right ear - ICD9: 380.4, ICD10: H61.21 Moderate waxy hard cerumen plug removed from the right canal using a lighted plastic cerumen hook and alligator forceps. Patient did not tolerate water irrigation for more proximal cerumen. Printed- DEBROX 6.5 % EAR DROPS which she may use in combination with OTC irrigation. Follow-up here or with ENT if unable to remove the remaining wax. Abran Granados MD documented in this encounterBainbridge ClinicDischarge summary Author Abhiejet [facility] November 11, 2023 4:14pm Note Date/Time November 11, 2023 4:10pm [facility] Medical Records Department [address] [place] [address] Instructions for Home/Discharge Instructions 11/11/23 1609 MR#: [id number] Acct: [id number] Name: GIOVANNI LOMAX Rep #:[id number] : 1955 68 From: Abhijeet luo DO PCP: Dr. Leonidas Traore MD Status:A DM CHANTAL Discharge Instructions Diet Discharge Diet: No restrictions Activity Discharge Activity: No Restrictions Follow Up Care Test Results: Test results from this visit will be discussed in further detail at your follow- up appointment, if applicable. Discharge Plan Admission Admit Date/Time: 11/10/23 15:07 Primary Reason for Your Visit: strokelike symptoms Attending Provider: Abhijeet Sky Primary Care Provider: Leonidas Traore Consulting Providers: Braxton Sadler; Alejandro Desai; Amanda Ugarte; Birdie Acuna; Marivel Perez; Ron Cohen; Ester Doss; David Mobley; Bj Rene; Nevin Soto; Wolf Li; Gaby Bangura; Alexander Benavides; Carly Ceron; Fabian Acuña; Marylin Smith; Topher Morse; Dilcia Torres; Eyal Beauchamp;Rafael Arreaga; Guido Denny Discharge Orders/Prescriptions Prescriptions: Continued albuterol sulfate [ProAir HFA] 90 mcg/actuation HFA aerosol inhaler 2 inh inhalation Q6H PRN (Reason: shortness of breath or wheezing) atorvastatin 80 mg tablet 80 mg PO QHS 90 Days Qty: 90 0RF aspirin 81 MG tablet 81 mg PO DAILY@0800 90 Days Qty: 90 0RF clopidogrel [Plavix] 75 mg tablet 75 mg PO DAILY Qty: 90 3RF hydrochlorothiazide 25 mg tablet 25 mg PO DAILY Qty: 90 3RF losartan 100 mg tablet 100 mg PO DAILY Qty: 90 3RF metoprolol tartrate 25 mg tablet 25 mg PO BID Qty: 180 3RF nitroglycerin 0.4 mg tablet, sublingual 0.4 mg sublingual Q5M PRN (Reason: Chest Pain) Qty: 25 3RF amlodipine 10 mg tablet 10 mg PO DAILY Qty: 90 3RF albuterol sulfate 90 mcg/actuation HFA aerosol inhaler 1 - 2 puff inhalation Q6H PRN PRN (Reason: Sob &/Or Wheezing) Qty: 8.5 0RF pramipexole 1.5 mg tablet extended release 24 hr 1.5 mg PO QHS Qty: 90 0RF Referrals / Follow Up: Leonidas Traore MD [Primary Care Provider] - Disposition Disposition (needs filled in before D/C Order can be placed): Home, Self Care 11/11/23 1614<Electronically signed by Abhijeet Sky DO>Abhijeet Sky DO CC: Birdie Acuna; Gaby Bangura; Fabian Acuña; Marivel Perez MD; Amanda Ugarte MD; Braxton Sadler MD; Dr. Alejandro Desai MD; Dr. Ron Cohen MD; Dr. Leonidas Traore MD; Dr. Guido Denny MD; Dr. Ester Doss MD; Dr. Bj Rene MD; Dr. David Mobley MD; Dr. Wolf Li DO; Dr. Carly Ceron MD; Dr. Alexander Benavides MD; Dr. Rafael Arreaga MD; Dr. Marylin Smith MD; Dr. Topher Morse MD; Dr. Dilcia Torres MD; Nevin Soto DO; Eyal Beauchamp MD ~ Signed [facility] Work Phone: Discharge summary Author Abhijeet [facility] November 11, 2023 5:05pm Note Date/Time November 11, 2023 4:14pm [facility] Medical Records Department [address] [place] [address] Discharge Summary 11/11/23 1614 MR#: [id number] Acct: [id number] Name: GIOVANNI LOMAX Rep #:[id number] : 1955 68 From: Abhijeet luo DO PCP: Dr. Leonidas Traore MD Status:A DM CHANTAL Location: [place] [address] Providers Date of Admission: 11/10/23 Date of Discharge: 11/11/23 Primary Care Physician: Dr. Leonidas Traore MD Consultations 11/10/23 16:20 Consult: Tele-Neurology Routine Consulting Provider: [facility] Reason for Consult: Acute Ischemic Stroke/TIA EMERGENT Consult: No Notified: Yes Date Notified: 11/10/23 Time Notified: 17:14 Method of Notification: Answering Service Comments:: TIA. After stroke workup completed Nursing Unit Staff Notify [facility] of Tele-Neurology Consult: Yes 11/11/23 11:28 Consult: Vascular Surgery Routine Consulting Provider: Guido Denny Reason for Consult: concern for symptomatic R ICA disease EMERGENT Consult: No Notified: Yes Date Notified: 11/11/23 Time Notified: 13:01 Method of Notification: Text Reason For Visit: TIA Diagnosis Discharge Diagnosis (1) Brain TIA: Status: Acute Code(s): G45.9 - Transient cerebral ischemic attack, unspecified (2) Carotid artery disease: Status: Acute Code(s): I77.9 - Disorder of arteries and arterioles, unspecified Medications at Discharge Home Medications clopidogrel 75 mg tablet (Plavix) 75 mg PO DAILY antiplatelet #90 tabs 04/29/23 hydrochlorothiazide 25 mg tablet 25 mg PO DAILY BP #90 tabs 04/29/23 losartan 100 mg tablet 100 mg PO DAILY dose increase (BP) #90 tabs 04/29/23 metoprolol tartrate 25 mg tablet 25 mg PO BID BP #180 tabs 04/29/23 nitroglycerin 0.4 mg sublingual tablet 0.4 mg sublingual Q5M PRN Chest Pain #25 tabs 04/29/23 amlodipine 10 mg tablet 10 mg PO DAILY BP #90 tabs 05/30/23 albuterol sulfate 90 mcg/actuation aerosol inhaler 1 - 2 puff inhalation Q6H PRNPRN Sob &/Or Wheezing #8.5 grams 08/08/23 pramipexole 1.5 mg tablet,extended release 24 hr 1.5 mg PO QHS restless legs #90tabs 11/08/23 albuterol sulfate 90 mcg/actuation aerosol inhaler (ProAir HFA) 2 inh [id number] PRN shortness of breath or wheezing 11/10/23 aspirin 81 mg tablet,delayed release 81 mg PO DAILY@0800 90 days #90 tabs 11/11/23 atorvastatin 80 mg tablet 80 mg PO QHS 90 days #90 tabs 11/11/23 Hospital Course Operations None Procedures EKG, Transthoracic echo and - (Chest x-ray, CT brain without contrast, CTA head/neck, MRI brain without contrast) Summary of Care Provided Minutes Spent on Discharge: 35 Hospital Course: Patient is a 68-year-old female who presented [facility] ED on 11/10/2023 with strokelike symptoms. Short hospital course as noted below. Discharged home with no therapy needs in stable condition on . Suspected TIA: carotid artery disease Presented with transient left arm weakness and slurred speech that resolved after about half an hour. No further episodes while inpatient. CTA head/neck showed moderate stenosis at origin of right ICA, otherwise was negative. MRI brain negative. Echo with EF 60%, stage I diastolic dysfunction, moderate LV hypertrophy, no PFO. Lipid panel with LDL 139, HDL 42. A1c 5.6%, TSH normal. ? Teleneurology and vascular surgery followed. PT/OT/case management followed as well. Symptoms and presentation most consistent with TIA. Suspect poor compliance with home statin. Per vascular surgery, has mild carotid artery disease per imaging from admission, not likely the cause of her acute presentation. No indication for surgical invention. Recommended continuing medical therapy with aspirin and high intensity statin. Will continue home Plavix as well. Strongly recommended smoking cessation. Did very well with therapy, okay for discharge home with no therapy needs. 2. COPD ? Previously followed w/ Dr. Quiles, last office visit in late 2021. PFTs from 05/28/22 showed severe large airways obstructive ventilatory defect that was partially reversible. Not on home O2. Patient stable on room air on admission,no concern for exacerbation. Continue home short-acting inhaler as needed. 3. Tobacco abuse ? Strongly encouraged smoking cessation. 4. History of CAD with inferior STEMI in 2018 ? Had inferior STEMI in January 2019, complicated by acute in-stent restenosis after initial PCI of proximal RCA. Previously followed with Dr. Zheng, now has not seen a teleradiologist for a few years. Last echo in May 2022 showed EF 75%, no valvular abnormalities. Repeat echo on admit as noted above. Continue aspirin, statin, Plavix. 5. Hypertension ? Initially hypertensive on admission, improved on home regimen. Continue home amlodipine, hydrochlorothiazide, losartan, Lopressor on discharge. 6. Restless leg syndrome ? Continue home prophylaxis. Total clinical time spent by myself addressing the patient's medical issues, reviewing all the data, and collaborating with patient's care team: 35 minutes. Physical Exam Const alert, oriented x3 and no apparent distress General Appearance: cooperative and comfortable HEENT normocephalic, head/scalp atraumatic, hearing grossly normal bilaterally, nasal mucous membranes and turbinates normal and moist oral mucous membranes Eyes PERRL, EOMs intact bilaterally and conjunctivae normal Neck full ROM Chest inspection of chest normal Resp normal respiratory effort, normal air movement, no use of accessory muscles and clear to auscultation bilaterally Cardio regular rate, regular rhythm, no murmurs and peripheral pulses 2+ throughout GI normal to inspection, nondistended, normoactive bowel sounds, soft to palpation,non-tender and non-distended Back/Spine normal ROM Extremity normal to inspection, full ROM and no pedal edema Skin no rashes or lesions noted Neuro moves all extremities and no focal motor deficits Speech: speech normal Psych mental status grossly normal Weight / BMI Weight Weight: 77 kg Body Mass Index (BMI) 29.1 ABG / Lab / Microbiology Data 11/11/23 05:30 11/10/23 14:10 Laboratory: Laboratory Results - last 24 hr 11/10/23 17:02: POC Glucose 110 H 11/10/23 21:48: POC Glucose 172 H 11/11/23 05:30: WBC 8.0, RBC 4.54, Hgb 13.1, Hct 41.2, MCV 90.7, MCH 28.9, MCHC 31.8 L, RDW Std Deviation 45.4 H, RDW Coeff of Joleen 13.6, Plt Count 321, MPV 10.3, Immature Gran % (Auto) 0.300, Neut % (Auto) 49.6, Lymph % (Auto) 36.8, [place] % (Auto) 8.0, Eos % (Auto) 4.3, Baso % (Auto) 1.0, Absolute Neuts (auto) 4.0, Absolute Lymphs (auto) 2.94, Nucleated RBC % 0, Hemoglobin A1c 5.6, Triglycerides 93, Cholesterol 200, LDL Cholesterol 139 H, VLDL Cholesterol 19, HDL Cholesterol 42, TSH 0.85 11/11/23 06:23: POC Glucose 97 Radiography Diagnostic Testing: Radiology Impression Brain MRI 11/10/23 16:20 IMPRESSION: Involutional changes of the brain, as described above. No acute infarct. Electronically Signed: Rome Flores MD at 23:35 EDT , D/C Instructions Discharge Diet: No restrictions Meaningful Use Info Meaningful Use Meaningful Use Diagnoses (Choose all that apply): None applicable Ischemic Stroke Statin Dosing Therapy Reference: STATIN DOSE THERAPY REFERENCE: * Patients > 75 years receive moderate or high dose statin therapy. * Patients 75 years or YOUNGER should receive HIGH intensity statin dose unless contraindicated. You will be required to document reason for non-treatment if statin daily dose does not meet guidelines. HIGH DOSE STATIN THERAPY DAILY Atorvastatin > than or = to 40 mg Rosuvastatin > than or = to 20 mg Amlodipine + Atorvastatin > than or = to 2.5/40 mg Ezetimibe + Simvastatin 10/80 mg Simvastatin 80mg Discharge Plan Admission Admit Date/Time: 11/10/23 15:07 Primary Reason for Your Visit: strokelike symptoms Attending Provider: Abhijeet Sky Primary Care Provider: Leonidas Traore Consulting Providers: Braxton Sadler; Alejandro Desai; Amanda Ugarte; Birdie Acuna; Marivel Perez; Ron Cohen; Ester Doss; David Mobley; Bj Rene; Nevin Soto; Wolf Li; Gaby Bangura; Alexander Benavides; Carly Ceron; Fabian Acuña; Marylin Smith; Topher Morse; Dilcia Torres; Eyal Beauchamp;Rafael Arreaga; Guido Denny Discharge Orders/Prescriptions Prescriptions: Continued albuterol sulfate [ProAir HFA] 90 mcg/actuation HFA aerosol inhaler 2 inh inhalation Q6H PRN (Reason: shortness of breath or wheezing) atorvastatin 80 mg tablet 80 mg PO QHS 90 Days Qty: 90 0RF aspirin 81 MG tablet 81 mg PO DAILY@0800 90 Days Qty: 90 0RF clopidogrel [Plavix] 75 mg tablet 75 mg PO DAILY Qty: 90 3RF hydrochlorothiazide 25 mg tablet 25 mg PO DAILY Qty: 90 3RF losartan 100 mg tablet 100 mg PO DAILY Qty: 90 3RF metoprolol tartrate 25 mg tablet 25 mg PO BID Qty: 180 3RF nitroglycerin 0.4 mg tablet, sublingual 0.4 mg sublingual Q5M PRN (Reason: Chest Pain) Qty: 25 3RF amlodipine 10 mg tablet 10 mg PO DAILY Qty: 90 3RF albuterol sulfate 90 mcg/actuation HFA aerosol inhaler 1 - 2 puff inhalation Q6H PRN PRN (Reason: Sob &/Or Wheezing) Qty: 8.5 0RF pramipexole 1.5 mg tablet extended release 24 hr 1.5 mg PO QHS Qty: 90 0RF Referrals / Follow Up: Leonidas Traore MD [Primary Care Provider] - Disposition Disposition (needs filled in before D/C Order can be placed): Home, Self Care Charges/Coding Visit Charges Inpatient E&M: 55166 Disch Hosp >30min 11/11/23 1705 <Electronically signed by Abhijeet Sky DO> Cosigner Signature (if applicable): CC: Dr. Abhijeet Sky DO; Dr. Leonidas Traore MD~ Signed [facility] Work Phone: Evaluation note* Diagnosis Impacted cerumen of right ear- Primary Impacted cerumen [facility]* Diagnosis Onset Date Resolution Status Acute bronchitis acute Contact with or suspected ex posure to other viral communicable disease acute COPD (chronic obstructive pulmonary disease) chronic Hypertension chronic Hyperlipidemia chronic Hypertension chronic Tobacco abuse [facility] Work Phone: Evaluation note* Diagnosis Onset Date Resolution Status Acute bronchitis acute Contact with or suspected ex posure to other viral communicable disease acute COPD (chronic obstructive pulmonary disease) chronic Hypertension chronic Hyperlipidemia chronic Hypertension chronic Tobacco abuse chronic Brain TIA acute [facility] Work Phone: Evaluation note* Diagnosis Onset Date Resolution Status Acute bronchitis acute Contact with or suspected ex posure to other viral communicable disease acute COPD (chronic obstructive pulmonary disease) chronic Hypertension chronic Hyperlipidemia chronic Hypertension chronic Tobacco abuse chronic Brain TIA acute Carotid artery disease acute [facility] Work Phone: Evaluation note* Diagnosis Primary osteoarthritis of left hip- Primary Left hip pain Pain in joint, pelvic region and thigh Left hip pain Pain in joint, pelvic region and thigh [facility] Diagnosis Left hip pain Pain in joint, pelvic region and thigh [facility] Diagnosis Acute cough- Primary COPD with exacerbation (HCC) Obstructive chronic bronchitis with exacerbation Acute cough COPD with exacerbation (HCC) Obstructive chronic bronchitis with exacerbation [facility] Acute cough COPD with exacerbation (HCC) Obstructive chronic bronchitis with exacerbation documented in this encounter [facility] physical note Author Rafael Arreaga [facility] November 10, 2023 4:01pm Note Date/Time November 10, 2023 3:28pm [facility] Medical Records Department [address] [place] [address] H&P Exam - Hospitalist 11/10/23 1525 MR#: [id number] Acct: [id number] Name: GIOVANNI LOMAX Rep #:[id number] : 1955 68 From: Rafael Sr PCP: Dr. Leonidas Traore MD Status:A DM CHANTAL Location: [place] [address] HPI - General General Date of Admission: 11/10/23 Date of Service: 11/10/23 Chief Complaint: Left arm weakness and language deficit about 1 PM today HPI Narrative GIOVANNI LOMAX, is a 68 F With no prior history of stroke came to ED with slurred speech, mild language deficit along with left arm weakness started 40 minutes prior to arrival about 1 PM. Patient is accompanied with her . Her said symptoms lasted for about few minutes but as per ED physician lasted within 10 minutes. She had similar instance about 2 to 3 days ago with left arm weakness that also lasted for few minutes on that occasion. By that time patient came to ED NIH stroke score 0. No nausea vomiting vertigo. Patient has history of coronary artery status post stents, COPD and still smokesa pack per day. Blood pressure in ED was high 189/158 and had labetalol [address] head does not show acute stroke. Patient is further admitted. Labs, vitals, and imaging and EKG all reviewed discussed assessment and plan. [facility] Medical History Anxiety and depression Atherosclerotic heart disease of robinson coronary artery without angina pectoris Chronic pain Colon cancer screening COPD (chronic obstructive pulmonary disease) Depression Flu vaccine need Fracture Health care maintenance History of fracture of clavicle Hyperlipidemia Hypertension Left hand pain Osteoporosis Patient noncompliance Pre-op chest exam ST elevation myocardial infarction (STEMI) Tobacco abuse Home Medications aspirin 81 mg tablet,delayed release 81 mg PO DAILY@0800 #30 tabs 01/12/19 [Rx Last Taken Unknown] atorvastatin 80 mg tablet 80 mg PO QHS #90 tabs 04/29/23 [Rx Last Taken Unknown] clopidogrel 75 mg tablet (Plavix) 75 mg PO DAILY #90 tabs 04/29/23 [Rx Last Taken Unknown] hydrochlorothiazide 25 mg tablet 25 mg PO DAILY #90 tabs 04/29/23 [Rx Last Taken Unknown] losartan 100 mg tablet 100 mg PO DAILY dose increase #90 tabs 04/29/23 [Rx Last Taken Unknown] metoprolol tartrate 25 mg tablet 25 mg PO BID #180 tabs 04/29/23 [Rx Last Taken Unknown] nitroglycerin 0.4 mg sublingual tablet 0.4 mg sublingual Q5M PRN Chest Pain #25 tabs 04/29/23 [Rx Last Taken Unknown] amlodipine 10 mg tablet 10 mg PO DAILY #90 tabs 05/30/23 [Rx Last Taken Unknown] albuterol sulfate 90 mcg/actuation aerosol inhaler 1 - 2 puff inhalation Q6H PRNPRN Sob &/Or Wheezing #8.5 grams 08/08/23 [Rx Last Taken Unknown] pramipexole 1.5 mg tablet,extended release 24 hr 1.5 mg PO QHS restless legs #90tabs 11/08/23 [Rx Last Taken Unknown] albuterol sulfate 90 mcg/actuation aerosol inhaler (ProAir HFA) 2 inh [id number] PRN shortness of breath or wheezing 11/10/23 [History Last Taken Unknown] Allergy/AdvReac Type Severity Reaction Status Date / Time No Known Allergies Allergy Verified 10/31/23 10:20 Family History Father , 52 Myocardial infarction Heart disease Hyperlipemia Brother Myocardial infarction CAD (coronary artery disease) CABG and stents Mother Arthritis Depression Osteoporosis Seizures Son Suicide Depression Other Cancer Surgical History History of hysterectomy History of oophorectomy History of shoulder surgery History of tonsillectomy Stented coronary artery (01/10/19) Social History housing: house Smoking Status: Current every day smoker tobacco type: cigarettes Tobacco: How many years used: 50 alcohol intake: current alcohol intake frequency: holidays/special occasions only Alcohol type: wine substance use type: marijuana caffeine: Yes Type: coffee Number of servings: 3 what type of physical activity do you participate in: none ROS ROS Narrative Constitutional: Denies acute fatigue and weakness. No fever. HEENT: Reports systems reviewed and no addt'l complaints, except as documented Respiratory/Chest: History of COPD. Active smoker. No acute shortness of breath or respiratory distress or wheezing. CVS: No chest pain pressure or tightness. Gastrointestinal: Denies coffee ground emesis, hematemesis or vomiting Genitourinary: Denies burning urination or new urinary tract symptoms Musculoskeletal: Denies acute joint pain or limited range of motion. No acute injury Neurologic: Denies seizure-like symptoms. Rest as described in HPI skin: No ulcer. No rash Endocrinology: Reports systems reviewed and no addt'l complaints, except as documented Hematologic/Lymphatic: Reports systems reviewed and no addt'l complaints, exceptas documented Rest 14 ROS are negative except as mentioned in HPI Vital Signs Vital Signs Vital Signs: 11/10/23 14:02 11/10/23 14:12 11/10/23 14:35 Temperature 99 F Temperature Source Oral Pulse Rate 92 74 Respiratory Rate 14 17 Blood Pressure 189/158 H 170/105 H Blood Pressure Mean 168 126 Pulse Ox 95 95 94 Oxygen Delivery Method Room Air Room Air Room Air 11/10/23 15:01 11/10/23 15:05 Temperature Temperature Source Pulse Rate 73 74 Respiratory Rate 18 16 Blood Pressure 150/80 H 150/81 H Blood Pressure Mean 103 104 Pulse Ox 94 98 Oxygen Delivery Method Room Air Weight Weight: 171 lb 8.314 oz Body Mass Index (BMI) 29.4 Physical Exam Narrative General: Alert, Oriented x3, Cooperative HEENT: Atraumatic, PERRLA, EOMI, Normocephalic Oral: Oral mucosa moist. No Gingival or Mucosal Lesions/ Ulcerations Neck: Supple, No JVD, Negative Carotid Bruits Chest wall/Lungs: Air entry diminished in bilateral lung bases. No crepitation/rhonchi Cardiovascular: Regular rate, Regular Rhythm, Normal S1, Normal S2, systolic murmur present Abdomen: Bowel Sounds Present, Soft, Non Tender, Non-Distended : No dysuria. No renal angle tenderness. No suprapubic tenderness. Extremities: No edema, Capillary Refill Less than 3 Seconds Skin: No rashes, No breakdown Musculoskeletal: No acute tenderness to Palpation of Joints or Extremities. ROMfull and intact. Neurological: Cranial nerves II-XII grossly intact, NIH stroke scale 0. DTR 2+/4. No acute focal neurological deficit. Psych/Mental Status: Normal Affect, Appropriate. Results Lab / Micro Data 11/10/23 14:10 11/10/23 14:10 Labs: Laboratory Results - last 24 hr 11/10/23 14:10: WBC 9.8, RBC 5.20, Hgb 15.3 H, Hct 47.2 H, MCV 90.8, MCH 29.4, MCHC 32.4, RDW Std Deviation 45.4 H, RDW Coeff of Joleen 13.4, Plt Count 331, MPV 9.8, Immature Gran % (Auto) 0.200, Neut % (Auto) 59.6, Lymph % (Auto) 32.2, [place]% (Auto) 5.4, Eos % (Auto) 2.0, Baso % (Auto) 0.6, Absolute Neuts (auto) 5.8, Absolute Lymphs (auto) 3.15, Nucleated RBC % 0, PT 13.0, INR 1.0, APTT 27.6, Sodium 138, Potassium 4.2, Chloride 105, Carbon Dioxide 31.0, Anion Gap 2 L, BUN15, Creatinine 0.74, Estim Creat Clear Calc 69.82, Est GFR (MDRD) Af Amer 102, Est GFR (MDRD) Non-Af 84, BUN/Creatinine Ratio 20.4 H, Glucose 111 H, Calcium 9.4, Troponin I High Sens 14 Imaging Radiology Impression Brain CT 11/10/23 14:05 IMPRESSION: Chronic involutional changes of the brain. N.B. : The above Results were Read Back by Marty Mari MD to Dr Carmita MD, and understanding confirmed on 11/10/2023 14:26:25 (ET). Electronically Signed: Marty Mari MD at 14:27 EDT , ADDENDUM: 11/10/23 6384 IMPRESSION: Chronic involutional changes of the brain. N.B. : The above Results were Read Back by Marty Mari MD to Dr Carmita MD, and understanding confirmed on 11/10/2023 14:26:25 (ET). Electronically Signed: Marty Mari MD at 14:27 EDT , Chest X-Ray 11/10/23 14:05 IMPRESSION: Hyperinflation. The lungs are clear. Electronically Signed: Marty Mari MD at 14:58 EDT , Head/Neck CTA 11/10/23 14:20 IMPRESSION: Moderate degree of narrowing at the origin of the right internal carotid artery. Mild degree of narrowing at the origin of left internal carotid artery. Nonvisualization of the right A1 segment of the anterior cerebral artery. N.B. : The above Results were Read Back by Marty Mari MD to Dr Carmita MD, and understanding confirmed on 11/10/2023 14:45:00 (ET). Electronically Signed: Marty Mari MD at 14:46 EDT , ADDENDUM: 11/10/23 1453 IMPRESSION: Moderate degree of narrowing at the origin of the right internal carotid artery. Mild degree of narrowing at the origin of left internal carotid artery. Nonvisualization of the right A1 segment of the anterior cerebral artery. N.B. : The above Results were Read Back by Marty Mari MD to Dr Carmita MD, and understanding confirmed on 11/10/2023 14:45:00 (ET). Electronically Signed: Marty Mari MD at 14:46 EDT , Assessment & Plan Assessment/Plan (1) Brain TIA: PLAN: Plan This is a 68-year-old female is being admitted for left arm weakness, mild language deficit lasted for few minutes and resolved by the time she came to ED. 1. Most probably TIA: Patient is being admitted in PCU. CT head shows chronic involutional changes but no acute intracranial abnormality. CTA head and neck shows moderate degree of narrowing at origin of right ICA, mild degree of narrowing at origin of left ICA. Nonvisualization of right A1 segment of KEZIA. PT, OT, speech therapy/swallow evaluation and management, nursing NIH stroke scale, BP and glucose monitoring and control as per stroke protocol. TSH, A1c fasting lipid profile tomorrow AM. MRI brain and 2D echo with bubble contrast study ordered 2. History of inferior wall STEMI, CAD: Patient was last admitted in January 2019 for inferior wall STEMI with acute in-stent thrombosis after initial PCI of proximal RCA: Patient had PCI with stent on that occasion. Patient used to follow Dr. Zheng but currently she is not following any teleradiologist. Twelve-lead EKG shows normal sinus rhythm, PACs at 72 bpm, QTc 479 ms. Troponin normal. Continue home cardiac medications. No acute issues Last echo in May 2022 Left ventricular systolic function is hyperdynamic. The estimated ejection fraction is 75 %. There is mild mitral annular calcification. Extension of the mitral annular calcification onto the posterior mitral valve leaflet. Trivial mitral valve insufficiency. Trivial tricuspid valve insufficiency. The aortic valve leaflets are not well visualized, however, based upon the 2D echocardiographic images obtained there appears to be moderate focal thickening present with no obvious significant restriction or insufficiency. Epicardial fat. Right ventricular systolic pressure estimated to be 27 mmHg. No evidence for diastolic dysfunction. 2. COPD with active smoking: Patient follows Dr. Quiles. Last office visit in April 2022. Last PFT on May 2022 partially reversible severe large airways obstructive ventilatory defect with associated air trapping. 3. Hypertension:Blood pressure high but within guidelines of TIA 4. Dyslipidemia: High intensity statin. Fasting profile tomorrow AM 5. DVT prophylaxis high risk: Lovenox 40 mg subcu daily. Discontinue if platelet count drops less than 50,000 or hemoglobin less than 8 g% Living will/advanced directive/end of life care: Patient does not have living will or advanced directive. After discussion of benefits/risks procedures involved with full code, DNR CC arrest and DNR CC, the patient opted for full code. Her is next of kin Patient does want artificial life support including intubation, tube feed, ventilator and/chest compression, central venous catheter, vasopressor and DC shock if needed Total time spent in [id number] encounter in discussion of advanced directive 17 minutes. Laboratory Results 11/10/23 14:10: WBC 9.8, RBC 5.20, Hgb 15.3 H, Hct 47.2 H, MCV 90.8, MCH 29.4, MCHC 32.4, RDW Std Deviation 45.4 H, RDW Coeff of Joleen 13.4, Plt Count 331, MPV 9.8, Immature Gran % (Auto) 0.200, Neut % (Auto) 59.6, Lymph % (Auto) 32.2, [place]% (Auto) 5.4, Eos % (Auto) 2.0, Baso % (Auto) 0.6, Absolute Neuts (auto) 5.8, Absolute Lymphs (auto) 3.15, Nucleated RBC % 0, PT 13.0, INR 1.0, APTT 27.6, Sodium 138, Potassium 4.2, Chloride 105, Carbon Dioxide 31.0, Anion Gap 2 L, BUN 15, Creatinine 0.74, Estim Creat Clear Calc 69.82, Est GFR (MDRD) Af Amer 102, Est GFR (MDRD) Non-Af 84, BUN/Creatinine Ratio 20.4 H, Glucose 111 H, Calcium 9.4, Troponin I High Sens 14 Clinical Impression(s) from Imaging Studies Brain CT 11/10/23 14:05 IMPRESSION: Chronic involutional changes of the brain. Chest X-Ray 11/10/23 14:05 IMPRESSION: Hyperinflation. The lungs are clear. Head/Neck CTA 11/10/23 14:20 IMPRESSION: Moderate degree of narrowing at the origin of the right internal carotid artery. Mild degree of narrowing at the origin of left internal carotid artery. Nonvisualization of the right A1 segment of the anterior cerebral artery. Charges/Coding Visit Charges Inpatient E&M: 02407 Init Hosp L3 Procedures Hospitalists Procedures: [id number] Advncd Care Plan 30 Min 11/10/23 1601 <Electronically signed by Rafael Arreaga MD> Cosigner Signature (if applicable): CC: Dr. Leonidas Traore MD; Dr. Rafael Arreaga MD~ [facility] Work Phone: Instructions* Name Dates Details How to Access Health Informa tion Online using Patient Portal and 3rd [employer] Apps Indication:Smoker Start:20-Jun-2020 Instruction Type:Patient Education Patient Instructions Indication:Smoker Start:20-Jun-2020 Instruction Type:Provider Instructions for Treatment How to access health informa tion online Indication:BMI 25.0-25.9,adult Start:03-May-2019 Instruction Type:Patient Education How to access health informa tion online - Detail Indication:BMI 25.0-25.9,adult Start:03-May-2019 Instruction Type:Patient Education Patient Instructions Indication:BMI 25.0-25.9,adult Start:03-May-2019 Instruction Type:Provider Instructions for Treatment How to access health informa tion online Indication:BMI 26.0-26.9,adult Start:19-Feb-2019 Instruction Type:Patient Education How to access health informa tion online - Detail Indication:BMI 26.0-26.9,adult Start:19-Feb-2019 Instruction Type:Patient Education Patient Instructions Indication:BMI 26.0-26.9,adult Start:19-Feb-2019 Instruction Type:Provider Instructions for Treatment [facility] Work Phone: Instructions* Name Dates Details How to Access Health Informa tion Online using Patient Portal and 3rd [employer] Apps Indication:Smoker Start:20-Jun-2020 Instruction Type:Patient Education Patient Instructions Indication:Smoker Start:20-Jun-2020 Instruction Type:Provider Instructions for Treatment How to access health informa tion online Indication:BMI 25.0-25.9,adult Start:03-May-2019 Instruction Type:Patient Education How to access health informa tion online - Detail Indication:BMI 25.0-25.9,adult Start:03-May-2019 Instruction Type:Patient Education Patient Instructions Indication:BMI 25.0-25.9,adult Start:03-May-2019 Instruction Type:Provider Instructions for Treatment How to access health informa tion online Indication:BMI 26.0-26.9,adult Start:19-Feb-2019 Instruction Type:Patient Education How to access health informa tion online - Detail Indication:BMI 26.0-26.9,adult Start:19-Feb-2019 Instruction Type:Patient Education Patient Instructions Indication:BMI 26.0-26.9,adult Start:19-Feb-2019 Instruction Type:Provider Instructions for Treatment [facility] Work Phone: Family History No Family History Records FoundUnknown Family Member Name Dates Details Alcohol Abuse Comments:Father. Status:Active Depression Comments:Mother. Sister. Son . Status:Active Diabetes Mellitus Comments:Sister. Status:Active Drug Dependency Comments:Mother. Status:Active Heart Disease Comments:Father. Sister. Bro ther. Status:Active Hypertension Comments:Father. Brother. Status:Active Seizure disorder Comments:Mother. Status:Active Unknown Family Member Name Dates Details Alcohol Abuse Comments:Father. Status:Active Depression Comments:Mother. Sister. Son . Status:Active Diabetes Mellitus Comments:Sister. Status:Active Drug Dependency Comments:Mother. Status:Active Heart Disease Comments:Father. Sister. Bro ther. Status:Active Hypertension Comments:Father. Brother. Status:Active Seizure disorder Comments:Mother. Status:Active Unknown Family Member Name Dates Details Alcohol Abuse Comments:Father. Status:Active Depression Comments:Mother. Sister. Son . Status:Active Diabetes Mellitus Comments:Sister. Status:Active Drug Dependency Comments:Mother. Status:Active Heart Disease Comments:Father. Sister. Bro ther. Status:Active Hypertension Comments:Father. Brother. Status:Active Seizure disorder Comments:Mother. Status:Active Unknown Family Member Name Dates Details Alcohol Abuse Comments:Father. Status:Active Depression Comments:Mother. Sister. Son . Status:Active Diabetes Mellitus Comments:Sister. Status:Active Drug Dependency Comments:Mother. Status:Active Heart Disease Comments:Father. Sister. Bro ther. Status:Active Hypertension Comments:Father. Brother. Status:Active Seizure disorder Comments:Mother. Status:Active Unknown Family Member Name Dates Details Alcohol Abuse Comments:Father. Status:Active Depression Comments:Mother. Sister. Son . Status:Active Diabetes Mellitus Comments:Sister. Status:Active Drug Dependency Comments:Mother. Status:Active Heart Disease Comments:Father. Sister. Bro ther. Status:Active Hypertension Comments:Father. Brother. Status:Active Seizure disorder Comments:Mother. Status:Active Unknown Family Member Name Dates Details Alcohol Abuse Comments:Father. Status:Active Depression Comments:Mother. Sister. Son . Status:Active Diabetes Mellitus Comments:Sister. Status:Active Drug Dependency Comments:Mother. Status:Active Heart Disease Comments:Father. Sister. Bro ther. Status:Active Hypertension Comments:Father. Brother. Status:Active Seizure disorder Comments:Mother. Status:Active Unknown Family Member Name Dates Details Alcohol Abuse Comments:Father. Status:Active Depression Comments:Mother. Sister. Son . Status:Active Diabetes Mellitus Comments:Sister. Status:Active Drug Dependency Comments:Mother. Status:Active Heart Disease Comments:Father. Sister. Bro ther. Status:Active Hypertension Comments:Father. Brother. Status:Active Seizure disorder Comments:Mother. Status:Active Unknown Family Member Name Dates Details Alcohol Abuse Comments:Father. Status:Active Depression Comments:Mother. Sister. Son . Status:Active Diabetes Mellitus Comments:Sister. Status:Active Drug Dependency Comments:Mother. Status:Active Heart Disease Comments:Father. Sister. Bro ther. Status:Active Hypertension Comments:Father. Brother. Status:Active Seizure disorder Comments:Mother. Status:Active Unknown Family Member Name Dates Details Alcohol Abuse Comments:Father. Status:Active Depression Comments:Mother. Sister. Son . Status:Active Diabetes Mellitus Comments:Sister. Status:Active Drug Dependency Comments:Mother. Status:Active Heart Disease Comments:Father. Sister. Bro ther. Status:Active Hypertension Comments:Father. Brother. Status:Active Seizure disorder Comments:Mother. Status:Active Unknown Family Member Name Dates Details Alcohol Abuse Comments:Father. Status:Active Depression Comments:Mother. Sister. Son . Status:Active Diabetes Mellitus Comments:Sister. Status:Active Drug Dependency Comments:Mother. Status:Active Heart Disease Comments:Father. Sister. Bro ther. Status:Active Hypertension Comments:Father. Brother. Status:Active Seizure disorder Comments:Mother. Status:Active Unknown Family Member Name Dates Details Alcohol Abuse Comments:Father. Status:Active Depression Comments:Mother. Sister. Son . Status:Active Diabetes Mellitus Comments:Sister. Status:Active Drug Dependency Comments:Mother. Status:Active Heart Disease Comments:Father. Sister. Bro ther. Status:Active Hypertension Comments:Father. Brother. Status:Active Seizure disorder Comments:Mother. Status:Active Unknown Family Member Name Dates Details Alcohol Abuse Comments:Father. Status:Active Depression Comments:Mother. Sister. Son . Status:Active Diabetes Mellitus Comments:Sister. Status:Active Drug Dependency Comments:Mother. Status:Active Heart Disease Comments:Father. Sister. Bro ther. Status:Active Hypertension Comments:Father. Brother. Status:Active Seizure disorder Comments:Mother. Status:Active Unknown Family Member Name Dates Details Alcohol Abuse Comments:Father. Status:Active Depression Comments:Mother. Sister. Son . Status:Active Diabetes Mellitus Comments:Sister. Status:Active Drug Dependency Comments:Mother. Status:Active Heart Disease Comments:Father. Sister. Bro ther. Status:Active Hypertension Comments:Father. Brother. Status:Active Seizure disorder Comments:Mother. Status:Active Relationship Condition Age at Onset Recorded Date/T cezar Not Specified Malignant neoplasm Unknown father Myocardial infarction Unknown Cardiac disease Unknown Hyperlipidemia Unknown brother Myocardial infarction Unknown Coronary artery disease Unknown mother Arthritis Unknown Depression Unknown Osteoporosis Unknown Seizure Unknown son Suicide Unknown Unknown Family Member Name Dates Details Alcohol Abuse Comments:Father. Status:Active Depression Comments:Mother. Sister. Son . Status:Active Diabetes Mellitus Comments:Sister. Status:Active Drug Dependency Comments:Mother. Status:Active Heart Disease Comments:Father. Sister. Bro ther. Status:Active Hypertension Comments:Father. Brother. Status:Active Seizure disorder Comments:Mother. Status:Active Instructions Name Dates Details How to access health informa tion online Indication:BMI 26.0-26.9,adult Start:19-Feb-2019 Instruction Type:Patient Education How to access health informa tion online - Detail Indication:BMI 26.0-26.9,adult Start:19-Feb-2019 Instruction Type:Patient Education Patient Instructions Indication:BMI 26.0-26.9,adult Start:19-Feb-2019 Instruction Type:Provider Instructions for Treatment Name Dates Details How to access health informa tion online Indication:BMI 26.0-26.9,adult Start:19-Feb-2019 Instruction Type:Patient Education How to access health informa tion online - Detail Indication:BMI 26.0-26.9,adult Start:19-Feb-2019 Instruction Type:Patient Education Patient Instructions Indication:BMI 26.0-26.9,adult Start:19-Feb-2019 Instruction Type:Provider Instructions for Treatment Name Dates Details How to access health informa tion online Indication:BMI 26.0-26.9,adult Start:19-Feb-2019 Instruction Type:Patient Education How to access health informa tion online - Detail Indication:BMI 26.0-26.9,adult Start:19-Feb-2019 Instruction Type:Patient Education Patient Instructions Indication:BMI 26.0-26.9,adult Start:19-Feb-2019 Instruction Type:Provider Instructions for Treatment Name Dates Details How to access health informa tion online Indication:BMI 25.0-25.9,adult Start:03-May-2019 Instruction Type:Patient Education How to access health informa tion online - Detail Indication:BMI 25.0-25.9,adult Start:03-May-2019 Instruction Type:Patient Education Patient Instructions Indication:BMI 25.0-25.9,adult Start:03-May-2019 Instruction Type:Provider Instructions for Treatment How to access health informa tion online Indication:BMI 26.0-26.9,adult Start:19-Feb-2019 Instruction Type:Patient Education How to access health informa tion online - Detail Indication:BMI 26.0-26.9,adult Start:19-Feb-2019 Instruction Type:Patient Education Patient Instructions Indication:BMI 26.0-26.9,adult Start:19-Feb-2019 Instruction Type:Provider Instructions for Treatment Name Dates Details How to access health informa tion online Indication:BMI 25.0-25.9,adult Start:03-May-2019 Instruction Type:Patient Education How to access health informa tion online - Detail Indication:BMI 25.0-25.9,adult Start:03-May-2019 Instruction Type:Patient Education Patient Instructions Indication:BMI 25.0-25.9,adult Start:03-May-2019 Instruction Type:Provider Instructions for Treatment How to access health informa tion online Indication:BMI 26.0-26.9,adult Start:19-Feb-2019 Instruction Type:Patient Education How to access health informa tion online - Detail Indication:BMI 26.0-26.9,adult Start:19-Feb-2019 Instruction Type:Patient Education Patient Instructions Indication:BMI 26.0-26.9,adult Start:19-Feb-2019 Instruction Type:Provider Instructions for Treatment Name Dates Details How to access health informa tion online Indication:BMI 25.0-25.9,adult Start:03-May-2019 Instruction Type:Patient Education How to access health informa tion online - Detail Indication:BMI 25.0-25.9,adult Start:03-May-2019 Instruction Type:Patient Education Patient Instructions Indication:BMI 25.0-25.9,adult Start:03-May-2019 Instruction Type:Provider Instructions for Treatment How to access health informa tion online Indication:BMI 26.0-26.9,adult Start:19-Feb-2019 Instruction Type:Patient Education How to access health informa tion online - Detail Indication:BMI 26.0-26.9,adult Start:19-Feb-2019 Instruction Type:Patient Education Patient Instructions Indication:BMI 26.0-26.9,adult Start:19-Feb-2019 Instruction Type:Provider Instructions for Treatment Name Dates Details How to access health informa tion online Indication:BMI 25.0-25.9,adult Start:03-May-2019 Instruction Type:Patient Education How to access health informa tion online - Detail Indication:BMI 25.0-25.9,adult Start:03-May-2019 Instruction Type:Patient Education Patient Instructions Indication:BMI 25.0-25.9,adult Start:03-May-2019 Instruction Type:Provider Instructions for Treatment How to access health informa tion online Indication:BMI 26.0-26.9,adult Start:19-Feb-2019 Instruction Type:Patient Education How to access health informa tion online - Detail Indication:BMI 26.0-26.9,adult Start:19-Feb-2019 Instruction Type:Patient Education Patient Instructions Indication:BMI 26.0-26.9,adult Start:19-Feb-2019 Instruction Type:Provider Instructions for Treatment Name Dates Details How to access health informa tion online Indication:BMI 25.0-25.9,adult Start:03-May-2019 Instruction Type:Patient Education How to access health informa tion online - Detail Indication:BMI 25.0-25.9,adult Start:03-May-2019 Instruction Type:Patient Education Patient Instructions Indication:BMI 25.0-25.9,adult Start:03-May-2019 Instruction Type:Provider Instructions for Treatment How to access health informa tion online Indication:BMI 26.0-26.9,adult Start:19-Feb-2019 Instruction Type:Patient Education How to access health informa tion online - Detail Indication:BMI 26.0-26.9,adult Start:19-Feb-2019 Instruction Type:Patient Education Patient Instructions Indication:BMI 26.0-26.9,adult Start:19-Feb-2019 Instruction Type:Provider Instructions for Treatment Name Dates Details How to Access Health Informa tion Online using Patient Portal and 3rd [employer] Apps Indication:Smoker Start:20-Jun-2020 Instruction Type:Patient Education Patient Instructions Indication:Smoker Start:20-Jun-2020 Instruction Type:Provider Instructions for Treatment How to access health informa tion online Indication:BMI 25.0-25.9,adult Start:03-May-2019 Instruction Type:Patient Education How to access health informa tion online - Detail Indication:BMI 25.0-25.9,adult Start:03-May-2019 Instruction Type:Patient Education Patient Instructions Indication:BMI 25.0-25.9,adult Start:03-May-2019 Instruction Type:Provider Instructions for Treatment How to access health informa tion online Indication:BMI 26.0-26.9,adult Start:19-Feb-2019 Instruction Type:Patient Education How to access health informa tion online - Detail Indication:BMI 26.0-26.9,adult Start:19-Feb-2019 Instruction Type:Patient Education Patient Instructions Indication:BMI 26.0-26.9,adult Start:19-Feb-2019 Instruction Type:Provider Instructions for Treatment Name Dates Details How to access health informa tion online Indication:BMI 25.0-25.9,adult Start:03-May-2019 Instruction Type:Patient Education How to access health informa tion online - Detail Indication:BMI 25.0-25.9,adult Start:03-May-2019 Instruction Type:Patient Education Patient Instructions Indication:BMI 25.0-25.9,adult Start:03-May-2019 Instruction Type:Provider Instructions for Treatment How to access health informa tion online Indication:BMI 26.0-26.9,adult Start:19-Feb-2019 Instruction Type:Patient Education How to access health informa tion online - Detail Indication:BMI 26.0-26.9,adult Start:19-Feb-2019 Instruction Type:Patient Education Patient Instructions Indication:BMI 26.0-26.9,adult Start:19-Feb-2019 Instruction Type:Provider Instructions for Treatment Name Dates Details How to Access Health Informa tion Online using Patient Portal and 3rd Libertarian Apps Indication:Smoker Start:20-Jun-2020 Instruction Type:Patient Education Patient Instructions Indication:Smoker Start:20-Jun-2020 Instruction Type:Provider Instructions for Treatment How to access health informa tion online Indication:BMI 25.0-25.9,adult Start:03-May-2019 Instruction Type:Patient Education How to access health informa tion online - Detail Indication:BMI 25.0-25.9,adult Start:03-May-2019 Instruction Type:Patient Education Patient Instructions Indication:BMI 25.0-25.9,adult Start:03-May-2019 Instruction Type:Provider Instructions for Treatment How to access health informa tion online Indication:BMI 26.0-26.9,adult Start:19-Feb-2019 Instruction Type:Patient Education How to access health informa tion online - Detail Indication:BMI 26.0-26.9,adult Start:19-Feb-2019 Instruction Type:Patient Education Patient Instructions Indication:BMI 26.0-26.9,adult Start:19-Feb-2019 Instruction Type:Provider Instructions for Treatment Name Dates Details How to access health informa tion online Indication:BMI 25.0-25.9,adult Start:03-May-2019 Instruction Type:Patient Education How to access health informa tion online - Detail Indication:BMI 25.0-25.9,adult Start:03-May-2019 Instruction Type:Patient Education Patient Instructions Indication:BMI 25.0-25.9,adult Start:03-May-2019 Instruction Type:Provider Instructions for Treatment How to access health informa tion online Indication:BMI 26.0-26.9,adult Start:19-Feb-2019 Instruction Type:Patient Education How to access health informa tion online - Detail Indication:BMI 26.0-26.9,adult Start:19-Feb-2019 Instruction Type:Patient Education Patient Instructions Indication:BMI 26.0-26.9,adult Start:19-Feb-2019 Instruction Type:Provider Instructions for Treatment Summary Purpose Advance Directives No Advanced Directives Records FoundDocuments on File Type Date Recorded 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 Expl anation Advance Directives and Living Will Power of Stable Attendant Latest Code Status on File Code Status Date Activated Date Inactivated Comments Full Code 11/30/2019 9:49 AM Documents on File Type Date Recorded 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 Expl anation Advance Directive(s) Advance Directive Response Recorded Date/ Time Advance Directives No February 05 3:34pm Living Will No November 12, 2019 1: 18pm Power of Stable Attendant No November 12, 2019 1:18pm Advance Directive Response Recorded Date/ Time Advance Directives No February 05 4:34pm Living Will No November 12, 2019 2: 18pm Power of Stable Attendant No November 12, 2019 2:18pm Advance Directive Response Recorded Date/ Time Advance Directives No February 05 4:34pm Living Will No November 10, 2023 2: 13pm Power of Stable Attendant No November 10, 2023 2:13pm Advance Directive Response Recorded Date/ Time Advance Directives No February 05 4:34pm Living Will No November 10, 2023 4: 19pm Power of Stable Attendant No November 10, 2023 4:19pm Advance Directive Response Recorded Date/ Time Advance Directives No December 06 11:38am Discharge Instructions * Instructions* Hayley Elizondo RN - 11/29/2019 Please bring your [facility] Surgical Information folder on the day of surgery. Please fabienne the last dose taken (date and time ) on your Daily Medications List provided in your After Visit Summary. Please bring a photo ID and insurance information Do NOT take the following medications on the morning of surgery: losartan TAKE the following medications the morning of your surgery: aspirin, Plavix, metoprolol You may take your prescription pain medications. You may take Tylenol (Acetaminophen) if needed forpain. No Motrin, ibuprofen, or Advil 24 hours prior to surgery, or longer if instructed by your surgeon. No Aleve or Naprosyn 3 days prior to surgery, or longer if instructed by your surgeon. If you are on BLOOD THINNERS or ASPIRIN-continue aspirin and start Plavix as instructed by teleradiologist&surgeon, Tonie is on hold Additional instructions: none You will receive a reminder call the day before surgery with your Same Day Surgery arrival time. If you have specific questions, please call your surgeon. PLEASE, DO NOT SMOKE OR USE TOBACCO PRODUCTS ON THE DAY OF YOUR SURGERY. THIS COULD RESULT IN YOUR SURGERY BEING CANCELED. * Attachments The following attachments cannot be sent through Care Everywhere. * ORIF (Open Reduction With Internal Fixation): Pre-op (Yoruba) documented in this encounter* Instructions* Babak Underwood PA-C - 11/30/2019 General Orthopedic Discharge Instructions The following instructions have been prepared to help you when you leave the hospital. These guidelines are for the post-surgery period. Activity: Ease into normal activity as tolerated. Medications: see medication instructions. Please be sure to read and understand the information provided by your pharmacy. Ask your Pharmacist if any questions. Wound Care and Hygiene: -Wash hands before touching or changing dressings -Do Not touch incision -Leave dressing until post-op day 2 and reapply dressing if wound is draining. If wound is dry, youmay leave dressing off -May shower starting post-op day 3 Call Your Doctor for: -Excessive bleeding/swelling of incision -Fever with temperature above 100 F Anesthesia Precautions: -Do Not operate any vehicle (automobile, bicycle, motorcycle) or power tools for 24 hours -Do Not drink alcoholic beverages for 24 hours -As precaution to prevent post-operative nausea and vomiting, start your diet with liquids, then progress to light foods. If tolerated, resume normal diet. Additional Instructions: -Weight bearing status: Non weightbearing with left upper extremity. -Hold shoulder range of motion until follow up appointment. Ok for elbow, wrist, and finger range of motion as tolerated. -Sling as needed for comfort. Be sure to come out of the sling several times per day to work on elbow, wrist, and finger range of motion. -Your nerve block should wear off in 1-2 days -Ice/elevate extremity -Pain control: Alternate Tylenol and Ibuprofen every 4 hours. For example, take Tylenol at 7am and Ibuprofen at 11am. Then take Tylenol at 3pm and Ibuprofen at 7pm. Take Oxycodone for breakthrough pain only. Contact your surgeon's office (Dr. Bishop), to set up an appointment in 2 weeks, or if you have anyproblems or questions. documented in this encounter History of Present Illness * Dianne Castro RN - 11/30/2019 2:32 PM EDT Discharge information given to the patient. Patient and family verbalized understanding of information. All questions were answered before discharge. Patient ambulated, denies dizziness or nausea. Tolerating PO fluids and crackers. Vital signs are stable. Patient has changed and is being discharged home in a wheelchair with valuables. * Alissa Wilson RN - 11/30/2019 10:42 AM EDT B/p 185/99. Asymptomatic. * Alissa Wilson RN - 11/30/2019 10:30 AM EDT Order rec'd, labetalol given per order. Pt states understanding of purpose medication. * Alissa Wilson RN - 11/30/2019 10:15 AM EDT Anesthesia alphamated re: elevated blood pressure. Pt states not unusually high for her. * Alissa Wilson RN - 11/30/2019 9:57 AM EDT Patient arrived and ID verified. Vital signs stable. Call light in reach. Denies nausea and vomiting. at bedside. Surgeon at bedside to discuss surgery and elevated b/p. documented in this encounter Assessments Diagnosis Closed fracture of proximal end of left humerus with routine healing, unspecified fracture morphology, subsequent encounter Chief Complaint and Reason for Visit Chief Complaint overdue for OV COUGH/BROHCHITIS? [id number] E ORDERS EMPHYSEMA DYSPNEA TOBACCO DEPENDENCY TOBACCO DEPENDENCY Reason for Visit MAGALLANES (dyspnea on exer tion) Atherosclerotic heart disease of robinson coronary artery without angina pectoris Hyperlipidemia Hypertension Stented coronary artery Acute exacerbation of emphysema MAGALLANES (dyspnea on exertion) Nicotine dependence, cigarettes, uncomplicated Uncontrolled hypertension Chief Complaint COUGH, CHILLS fu/med refills Reason for Visit Acute bronchitis Contact with or suspected exposure to other viral communicable disease COPD (chronic obstructive pulmonary disease) Hypertension Hyperlipidemia Hypertension Tobacco abuse Chief Complaint COUGH, CHILLS fu/med refills TIA TIA (cardiology) Reason for Visit Acute bronchitis Contact with or suspected exposure to other viral communicable disease COPD (chronic obstructive pulmonary disease) Hypertension Hyperlipidemia Hypertension Tobacco abuse Brain TIA Chief Complaint COUGH, CHILLS fu/med refills TIA TIA (cardiology) TIA (cardiology) Reason for Visit Acute bronchitis Contact with or suspected exposure to other viral communicable disease COPD (chronic obstructive pulmonary disease) Hypertension Hyperlipidemia Hypertension Tobacco abuse Brain TIA Carotid artery disease Chief Complaint Admit Date MED FU August 08, 2024 1 :33pm PROLIA-$0 August 31, 2024 1:03pm Disorder of arteries arterioles September 1:55pm Reason for Visit Admit Date Osteoporosis August 08, 2024 1 :33pm Carotid artery disease August 08 1:33pm COPD (chronic obstructive pulmonary dise ase) August 08, 2024 1:33pm Hypertension August 08, 2024 1 :33pm Urinary frequency August 08, 2024 1 :33pm Carotid artery disease September 12, 2024 1 :55pm Additional Source Comments INFORMATION SOURCE (unrecogn ized section and content) DATE CREATED AUTHOR 11/21/2019 [facility] DATE CREATED AUTHOR AUTHOR'S ORGANIZ ATION 12/05/2019 [facility] DATE CREATED AUTHOR AUTHOR'S ORGANIZ ATION 12/21/2023 [facility] DATE CREATED AUTHOR AUTHOR'S ORGANIZ ATION 06/08/2024 [facility] DATE CREATED AUTHOR AUTHOR'S ORGANIZ ATION 11/17/2024 [facility] Source Comments (unrecognize d section and content) In the event this informatio n is protected by the Federal Confidentiality of Alcohol and Drug Abuse Patient Records regulations: The Federal rules restrict any use of the information to criminally investigate or prosecute any alcohol or drug abuse patient.[facility] the event this information is protected by the Federal Confidentiality of Alcohol and Drug Abuse Patient Records regulations: The Federal rules restrict any use of the information to criminally investigate or prosecute any alcohol or drug abuse patient.[facility] HealthIn the event this information is protected by the Federal Confidentiality of Alcohol and Drug Abuse Patient Records regulations: The Federal rules restrict any use of the information to criminally investigate or prosecute any alcohol or drug abuse patient.[facility] Reason for Visit (unrecogniz ed section and content) Reason Comments Ear Pain (RT) ear pain rated 2, x4 days Reason Comments Hip Pain Left Arm Pain Left Reason Comments Chest Congestion cough, headache x 2 weeks Care Teams (unrecognized sec tion and content) 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 Miri Cummins DO Family Provider Active Dr. Leonidas Traore MD Primary Care Provider Active Team Status: Inactive Member Role Status Dates Dr. Leonidas Traore MD Primary Care Provider, Refer ring Provider Active Layton BONNER, PA Attending Provider Active Team Status: Inactive Member Role Status Dates Dr. Leonidas Traore MD Primary Care P romanuel, Attending Provider, Referring Provider Active Team Status: Inactive Member Role Status Dates Dr. Leonidas Traore MD Primary Care Provider, Atten ding Provider Active Team Status: Active Member Role Status Dates Dr. Leonidas Traore MD Primary Care Provider Active Dr. Nadja Vizcarra MD Emergency Provider Active Dr. Rafael Arreaga MD Admit Provider, A ttending Provider, Other Provider Active Team Status: Active Member Role Status Dates Dr. Leonidas Traore MD Primary Care Provider Active Dr. Nadja Viczarra MD Emergency Provider Active Dr. Rafael Arreaga MD Admit Provider, Attending Provi daniel Active Team Status: Active Member Role Status Dates Dr. Leonidas Traore MD Primary Care Provider Active Dr. Dequan Roman MD Attending Provider Active Team Status: Active Member Role Status Dates Dr. Leonidas Traore MD Primary Care Provider Active Dr. Nadja Vizcarra MD Emergency Provider Active Dr. Rafael Arreaga MD Admit Provider, Other Provider Active Braxton Sadler MD Other Provider Active Dr. Alejandro Desai MD Other Provider Active Amanda Ugarte MD Other Provider Active Dr. Birdie Acuna , Other Provider Active Dr. Marivel Perez MD Other Provider Active Dr. Ron Cohen MD Other Provider Active Dr. Ester Doss MD Other Provider Active Dr. David Mobley MD Other Provider Active Dr. Bj Rene MD Other Provider Active Nevin Soto MD Other Provider Active Dr. Wolf Li MD Other Provider Active Dr. Gaby Bangura MD Other Provider Active Dr. Alexander Benavides MD Other Provider Active Dr. Carly Ceron MD Other Provider Active Dr. Fabian Acuña MD Other Provider Active Dr. Marylin Smith MD Other Provider Active Dr. Topher Morse MD Other Provider Active Dr. Dilcia Torres MD Other Provider Active Eyal Beauchamp MD Other Provider Active Dr. Abhijeet Sky DO Attending Provider, Other Provider Active Dr. Guido Denny MD Other Provider Active Team Status: Inactive Member Role Status Dates Dr. Leonidas Traore MD Primary Care Provider Active Dr. Nadja Vizcarra MD Emergency Provider Active Dr. Rafael Arreaga MD Admit Provider, Other Provider Active Braxton Sadler MD Other Provider Active Dr. Alejandro Desai MD Other Provider Active Amanda Ugarte MD Other Provider Active Dr. Birdie Acuna , Other Provider Active Dr. Marivel Perez MD Other Provider Active Dr. Ron Cohen MD Other Provider Active Dr. Ester Doss MD Other Provider Active Dr. David Mobley MD Other Provider Active Dr. Bj Rene MD Other Provider Active Nevin Soto MD Other Provider Active Dr. Wolf Li MD Other Provider Active Dr. Gaby Bangura MD Other Provider Active Dr. Alexander Benavides MD Other Provider Active Dr. Carly Ceron MD Other Provider Active Dr. Fabian Acuña MD Other Provider Active Dr. Marylin Smith MD Other Provider Active Dr. Topher Morse MD Other Provider Active Dr. Dilcia Torres MD Other Provider Active Eyal Beauchamp MD Other Provider Active Dr. Abhijeet Sky DO Attending Provider Active Dr. Guido Denny MD Other Provider Active Photocopying Equipment Repairer Relationship Specialty Start Date End Date Hank Olveraeen Jeanna [address] [place] [id number] PCP - General 11/29/19 Photocopying Equipment Repairer Relationship Specialty Start Date End Date Anil Kellymichael Meeks DO [address] [place] [id number] PCP - General 11/29/19 Photocopying Equipment Repairer Relationship Specialty Start Date End Date Leonidas Traore MD [address] [place] [address] PCP - General Internal Medicine 06/05/24 Photocopying Equipment Repairer Relationship Specialty Start Date End Date Leonidas Traore MD [address] [place] [address] PCP - General Internal Medicine 06/05/24 Team Status: Active Member Role Status Dates Dr. Leonidas Traore MD Primary Care Provider Active Team Status: Inactive Member Role Status Dates Dr. Leonidas Traore MD Primary Care Provider Active Start: August 08, 2024 End: August 08, 2024 Dr. Leonidas Traore MD Attending Provider Active Start: August 08, 2024 End: August 08, 2024 Dr. Leonidas Traore MD Referring Provider Active Start: August 08, 2024 End: August 08, 2024 Team Status: Inactive Member Role Status Dates Dr. Leonidas Traore MD Primary Care Provider Active Start: August 08, 2024 End: August 08, 2024 Dr. Leonidas Traore MD Attending Provider Active Start: August 08, 2024 End: August 08, 2024 Team Status: Inactive Member Role Status Dates Dr. Leonidas Traore MD Primary Care Provider Active Start: August 31, 2024 End: August 31, 2024 Dr. Leonidas Traore MD Referring Provider Active Start: August 31, 2024 End: August 31, 2024 KAILEY Bearden Attending Provider Active St art: August 31, 2024 End: August 31, 2024 Team Status: Inactive Member Role Status Dates Dr. Leonidas Traore MD Primary Care Provider Active Start: August 31, 2024 End: August 31, 2024 Dr. Katie Washington MD Attending Provider Active Start: August 31, 2024 End: August 31, 2024 Dr. Katie Washington MD Referring Provider Active Start: August 31, 2024 End: August 31, 2024 Team Status: Inactive Member Role Status Dates Dr. Leonidas Traore MD Primary Care Provider Active Start: September 12, 2024 End: September 12, 2024 Dr. Leonidas Traore MD Referring Provider Active Start: September 12, 2024 End: September 12, 2024 KAILEY Hawthorne Attending Provider Active Star t: September 12, 2024 End: September 12, 2024 Goals (unrecognized section and content) Goals may be documented in a n alternate sectionGoals may be documented in an alternate sectionGoals may be documented in an alternate sectionGoals may be documented in an alternate sectionGoals may be documented in an alternate section FOR RECORDS PERTAINING TO PATIENTS WHO ARE OR HAVE BEEN ENROLLED IN A CHEMICAL DEPENDENCY/SUBSTANCEABUSE PROGRAM, SOME INFORMATION MAY BE OMITTED. This clinical summary was aggregated from multiple sources. Caution should be exercised in using it in the provision of clinical care. This summary normalizes information from multiple sources, and as a consequence, information in this document may materially change the coding, format and clinical context of patient data. In addition, data may be omitted in some cases. CLINICAL DECISIONS SHOULD BE BASED ON THE PRIMARY CLINICAL RECORDS. [facility]. provides no warranty or guarantee of the accuracy or completeness of information in this document.
--- NOTE | 2024-12-28 06:15 | RAD_ITS ---
PROCEDURE: CHEST PA AND LATERAL 12/28/2024 REASON FOR EXAM: CHEST PAIN TECHNIQUE: CHEST PA AND LATERAL COMPARISON: 11/10/2023. FINDINGS: The lungs are expanded. There is no demonstrated parenchymal abnormality. There is no demonstrated pleural abnormality. Enlarged cardiac silhouette. Normal mediastinum and alex. Normal visualized pulmonary arteries. Atheromatous plaques of the visualized aortic arch and descending thoracic aorta. Diffuse spondylosis of the visualized thoracic spine. Normal visualized ribs, clavicles. Degenerative joint disease. There is no demonstrated abnormality of the visualized soft tissue structures of the upper abdomen. Unremarkable left humeral metallic plate and screws. RAD/Chest PA and Lateral IMPRESSION: No evidence for acute abnormality. Reading Location: [facility]
[2024-12-28 06:22] LABS: D-Dimer Quantitative (DVT/PE) 0.53 FEU/ug/m (0.27-0.49)
[2024-12-28 07:02] LABS: Troponin T High Sensitivity 102 ng/L (<=14)
--- NOTE | 2024-12-28 07:33 | EDS_ITS ---
HPI History of Present Illness Chief Complaint: Chest Pain Informant: patient and spouse/S.O. Narrative Narrative: Patient is a 69-year-old female with past medical history COPD coronary artery disease 2 previous STEMI's with last stent placement in 2019 and malignant hypertension. She states that despite taking her medication her blood pressure is typically 200/100. She states that last night she went to bed normally and then awoke with a vague discomfort in her mid to right sided chest that she also felt in between her shoulder blades. She states there was no associated nausea vomiting or diaphoresis. She reports her shortness of breath is at baseline. She states that the symptoms were similar to her previous VT but also different. She reports she took aspirin and nitro at home without symptom improvement but as she had concerned that the symptoms were cardiac in nature she presents for evaluation [facility] Medical History Carotid artery disease Urinary frequency History of TIA (transient ischemic attack) Nausea Chronic left hip pain Left shoulder pain Anxiety Smoker ICD (implantable cardioverter-defibrillator) in place Myocardial infarct Health care maintenance Colon cancer screening Flu vaccine need Patient noncompliance Tobacco abuse Anxiety and depression Left hand pain History of fracture of clavicle Fracture Depression Chronic pain COPD (chronic obstructive pulmonary disease) Osteoporosis Pre-op chest exam Hyperlipidemia Atherosclerotic heart disease of [place] coronary artery without angina pectoris ST elevation myocardial infarction (STEMI) Hypertension Home Medications ?Medication ?Instructions ?Recorded ?Last Taken ?Type clopidogrel 75 mg tablet (Plavix) 75 mg PO DAILY antip latelet #90 04/29/23 Unknown Rx tabs hydrochlorothiazide 25 mg tablet 25 mg PO DAILY BP #90 tabs 04/29/23 Unknown Rx losartan 100 mg tablet 100 mg PO DAILY dose increas e (BP) 04/29/23 Unknown Rx #90 tabs metoprolol tartrate 25 mg tablet 25 mg PO BID BP #180 tabs 04/29/23 Unknown Rx nitroglycerin 0.4 mg sublingual 0.4 mg sublingual Q5M PRN Chest 04/29/23 Unknown Rx tablet Pain #25 tabs amlodipine 10 mg tablet 10 mg PO DAILY BP #90 tabs 1 07/30/22 Unknown Rx aspirin 81 mg tablet,delayed 81 mg PO DAILY@0800 90 da ys #90 11/11/23 Unknown Rx release tabs atorvastatin 80 mg tablet 80 mg PO QHS 90 days #90 tab s 11/11/23 Unknown Rx denosumab 60 mg/mL subcutaneous 60 mg subcut [id number] #1 mL 12/12/23 Unknown Rx syringe (Prolia) albuterol sulfate 90 mcg/actuation 1 - 2 puff inhalati on Q6H PRN PRN 02/29/24 Unknown Rx aerosol inhaler Sob &/Or Wheezing #8.5 grams fluticasone fur. 100 mcg-umeclid 1 inh inhalation Q24H 3 months #60 09/25/24 Unknown Rx 62.5 mcg-vilant 25 mcg ea inhalat.powder (Trelegy Ellipta) pramipexole 1.5 mg tablet 1.5 mg PO QHS #30 tabs 10/02 Unknown Rx Allergy/AdvReac Type Severity Reaction Status Date / Time No Known Allergies Allergy Verified 12/28/24 05:24 Family History Father , 52 Myocardial infarction Heart disease Hyperlipemia Brother Myocardial infarction CAD (coronary artery disease) CABG and stents Mother Arthritis Depression Osteoporosis Seizures Son Suicide Depression Other Cancer Surgical History History of tonsillectomy History of oophorectomy History of hysterectomy History of shoulder surgery Stented coronary artery (01/10/19) Social History housing: house Smoking Status: Current every day smoker tobacco type: cigarettes Tobacco: How many years used: 50 alcohol intake: current alcohol intake frequency: holidays/special occasions only Alcohol type: wine substance use type: marijuana caffeine: Yes Type: coffee Number of servings: 3 what type of physical activity do you participate in: none ROS ROS ED Constitutional Constitutional ED: Denies chills, fever(s) or sweats Eyes Eyes: Denies blurry vision or change in vision ENT ENT ED: Denies sore throat Cardiovascular Cardiovascular: Reports chest pain; Denies palpitations or racing heartbeat Respiratory/Chest Respiratory/Chest: Reports cough; Denies dyspnea Gastrointestinal Gastrointestinal: Denies abdominal pain, diarrhea, nausea or vomiting Musculoskeletal Musculoskeletal: Reports back pain Integumentary Denies rash Neurologic Neurologic: Denies headache(s) Hematologic/Lymphatic Hematologic/Lymphatic: Denies easy bleeding or easy bruising EXAM Physical Exam Const Vital Signs: 12/28/24 05:19 12/28/24 05:28 12/28/24 06:18 Temperature 98.6 F Temperature Source Oral Pulse Rate 88 83 76 Respiratory Rate 16 20 H 18 Blood Pressure 225/106 H 206/97 H 180/98 H Blood Pressure Mean 145 133 125 Pulse Ox 97 97 95 Oxygen Delivery Method Room Air Room Air Room Air 12/28/24 06:32 12/28/24 07:00 Temperature Temperature Source Pulse Rate 71 71 Respiratory Rate 20 H 20 H Blood Pressure 188/86 H 193/100 H Blood Pressure Mean 120 131 Pulse Ox 94 93 Oxygen Delivery Method Room Air Room Air Positive well nourished and well developed General Appearance ED: well developed; Negative for pallor HEENT HEENT Narrative: Normocephalic atraumatic Eyes PERRL and EOMs intact bilaterally General Eye ED: Negative for scleral icterus Neck supple and no JVD Chest Wall Chest Narrative: There is reproducible pain with palpation of the mid sternum to right anterior chest wall without bony deformity or crepitance However patient reports this pain is different than what she was experiencing at home Resp normal respiratory effort Resp Narrative: Breath sounds are diminished throughout with diffuse expiratory wheeze and rhonchi in the bilateral bases consistent with history of COPD No signs of respiratory distress however Cardio regular rate and regular rhythm Rate: other Other Details: Heart is regular rate and rhythm without murmurs rubs or gallops Radial and carotid pulses are equal and symmetric There is a left-sided carotid bruit noted GI normal to inspection, nondistended, normoactive bowel sounds, non-tender, non- distended and no masses GI Narrative: No voluntary guarding or rigidity or pulsatile mass Negative Joseph sign Auscultation: normoactive bowel sounds Palpation: soft Back/Spine Back/Spine Narrative: No bony deformity or step-off of the thoracic or lumbar spine no midline tenderness to palpation Extremity normal to inspection Extremity Narrative: No asymmetric edema no pitting edema negative Homans' sign bilaterally Neuro oriented x3, CN's II-XII intact bilaterally and no sensory deficits noted Sensorium / Orientation: alert Motor Exam: strength 5/5 throughout Psych mental status grossly normal Skin no rashes or lesions noted and no wounds General Skin Exam: Negative for jaundice or pallor MDM MDM MDM Narrative Medical decision making narrative: Patient arrived to the ER hypertensive but states that this is her baseline blood pressure. She reported mid to right sided chest discomfort as well as pain within the upper back between the shoulder blade. There is no associated nausea vomiting or diaphoresis the patient does have multiple risk factors for coronary artery disease and with concern for acute coronary syndrome a basic cardiac workup was obtained. With patient's history of COPD she could also have pneumonia or COPD exacerbation driving her symptoms or potentially a PE or dissection. Secondary to this basic blood work was obtained with chest x-ray and a D-dimer. D-dimer is 0.53 and based on the patient's age of 69 the value should be above 0.67/670 to be positive and therefore concern for PE or dissection is low. Chest x-ray revealed chronic findings consistent with COPD b ut no acute changes. The patient's EKG is sinus rhythm without ischemia or STEMI changes. The initial troponin however is elevated at 102 which would indicate that the patient's symptoms are indeed related to cardiac ischemia. On reevaluation the patient is resting comfortably she has had mild improvement of her hypertension and she reports that her pain is no longer present. I discussed with patient because of her history of coronary artery disease and previous stent placement and now elevation to her troponin that she should be admitted to the hospital so that she can undergo further cardiac testing such as stress test echo and/or heart cath and her troponins can be trended. The patient states that she is not having pain any longer and is afraid to be admitted to the hospital as she does have responsibilities at home. At this time we will wait until her delta troponin results so that she has more information to make a proper decision regarding admission. As the patient's delta troponin as well as basic metabolic profile and BNP are still pending she will be signed out to the day physician Dr. Walls. He was informed of the patient's initial desire to not stay in the hospital. Because of this I did fill out a left AGAINST MEDICAL ADVICE form. I did go over the risk factors with the patient such as permanent cardiac damage disability and . The patient states that she understands the risks as she has had heart attacks in the past and is willing to accept them at this time. History & Record Review Discussion w/independent historian: Patient and Significant other Lab Data Attestation: I reviewed the patient's lab results. Labs: Laboratory Results - last 24 hr 12/28/24 05:22 WBC 12.7 H RBC 5.05 Hgb 14.6 Hct 44.3 MCV 87.7 MCH 28.9 MCHC 33.0 RDW Std Deviation 44.6 H RDW Coeff of Joleen 13.9 Plt Count 344 MPV 10.4 Immature Gran % (Auto) 0.400 Neut % (Auto) 71.1 H Lymph % (Auto) 22.2 [place] % (Auto) 4.8 Eos % (Auto) 0.9 Baso % (Auto) 0.6 Absolute Neuts (auto) 9.0 H Absolute Lymphs (auto) 2.81 Nucleated RBC % 0 D-Dimer Quant (PE/DVT) 0.53 H* Troponin T High Sens 102 H* Radiography Diagnostic Testing: Clinical Impression(s) from Imaging Studies Chest X-Ray 12/28/24 06:15 IMPRESSION: No evidence for acute abnormality. Reading Location: [place] [id number] Chest x-ray as interpreted by the emergency medicine physician reveals no acute infiltrate pneumothorax or pleural effusion or widening of the mediastinum Discharge Plan Triage Chief Complaint: Chest Pain ED Provider: Gonzalo Hurst Dx/Rx/DC Orders Clinical Impression: Non-ST elevated myocardial infarction (non-STEMI), COPD (chronic obstructive pulmonary disease), Malignant hypertension, Coronary artery disease, Hyperlipidemia Prescriptions: No Action Prolia 60 mg/mL syringe 60 mg subcut [id number] Qty: 1 1RF atorvastatin 80 mg tablet 80 mg PO QHS 90 Days Qty: 90 0RF aspirin 81 MG tablet 81 mg PO DAILY@0800 90 Days Qty: 90 0RF clopidogrel [Plavix] 75 mg tablet 75 mg PO DAILY Qty: 90 3RF hydrochlorothiazide 25 mg tablet 25 mg PO DAILY Qty: 90 3RF losartan 100 mg tablet 100 mg PO DAILY Qty: 90 3RF metoprolol tartrate 25 mg tablet 25 mg PO BID Qty: 180 3RF nitroglycerin 0.4 mg tablet, sublingual 0.4 mg sublingual Q5M PRN (Reason: Chest Pain) Qty: 25 3RF amlodipine 10 mg tablet 10 mg PO DAILY Qty: 90 3RF albuterol sulfate 90 mcg/actuation HFA aerosol inhaler 1 - 2 puff inhalation Q6H PRN PRN (Reason: Sob &/Or Wheezing) Qty: 8.5 0RF Trelegy Ellipta 100-62.5-25 mcg blister with device 1 inh inhalation Q24H 90 Days Qty: 60 2RF pramipexole 1.5 mg tablet 1.5 mg PO QHS Qty: 30 1RF Primary Care Provider: Neida Traore Referrals: Neida Traore MD [Primary Care Provider] - Print Language: Pashto
[2024-12-28 08:31] LABS: AST(SGOT) 20 U/L (<=31); Alanine Aminotransfer ALT/SGPT 16 U/L (<=34); Albumin, Serum 4.1 g/dL (3.4-4.8); Alkaline Phosphatase 68 U/L (35-104); Anion Gap 16 (5-15); BUN 18 mg/dL (4-19); BUN/Creat Ratio 25.4 RATIO (10-20); Bilirubin, Direct 0.15 mg/dL (0.00-0.30); Calcium,Total 8.9 mg/dL (7.6-11.0); Carbon Dioxide 22.1 mmol/L (21.0-32.0); Chloride 99 mmol/L (98-108); Creatinine, Serum 0.71 mg/dL (0.70-1.20); EST Glomerular Filtration Rate 94 (>60); Estimated Creatinine Clearance 72.37 ml/min (50-250); Globulin 3.6 g/dL (2.2-4.2); Glucose 131 mg/dL (70-99); Lipase 29 U/L (13-75); Potassium 4.1 mmol/L (3.3-5.1); Pro- Brain NATRIURETIC PEPTIDE 174 pg/mL (<=900); Protein, Total 7.7 g/dL (5.9-8.4); Sodium Level 137 mmol/L (133-145); Total Bilirubin 0.38 mg/dL (0.00-1.30)
[2024-12-28 09:01] LABS: Troponin T High Sens 2 HR 116 ng/L (<=14)
[2024-12-28] MEDS: Heparin Injection (Vial) 5,000 UNIT/ML VIAL 4000 UNIT IV (09:27)
[2024-12-28 09:29] LABS: International Normalized Ratio 0.9; Prothrombin Time (Protime)PT. 12.8 SECONDS (11.7-14.9)
[2024-12-28 09:30] LABS: Partial Thromboplast Time 28.6 Seconds (24.1-36.2)
[2024-12-28] MEDS: HEPARIN/D5w 25,000 UNITS 25,000 UNITS/250 ML IV.SOLN. 10 UNITS CONT INF (09:31)
--- NOTE | 2024-12-28 10:09 | PCM.HP.STD ---
HPI - General General Date of Admission: 12/28/24 Date of Service: 12/28/24 Chief Complaint: Chest pain HPI Narrative GIOVANNI LOMAX, is a 69 F with a history of coronary artery disease with 2 previous stents, hypertension, COPD, tobacco use who presented [facility] ED 12/27/2024 due to chest pain. In the ED patient did initially have a blood pressure of 225/106 with downtrend into 180s, heart rate of 88, respiratory rate 16 and 97% on room air. EKG with no overt ischemic changes but initial troponin 102 with repeat of 116, patient placed on heparin drip and hospitalist contacted for admission. Patient evaluated at bedside and reports she had been in her usual health until last night when she had some nausea, she went to bed and woke up with burning in the center of her chest that radiated between her shoulder blades. The pain in her back was similar to previous heart attacks prompting her to come to the ED. Patient currently has a little bit of a headache but reports not presently having the pain in the front of her chest or nausea. Denies any other new or acute complaints [facility] Medical History Carotid artery disease Urinary frequency History of TIA (transient ischemic attack) Nausea Chronic left hip pain Left shoulder pain Anxiety Smoker ICD (implantable cardioverter-defibrillator) in place Myocardial infarct Health care maintenance Colon cancer screening Flu vaccine need Patient noncompliance Tobacco abuse Anxiety and depression Left hand pain History of fracture of clavicle Fracture Depression Chronic pain COPD (chronic obstructive pulmonary disease) Osteoporosis Pre-op chest exam Hyperlipidemia Atherosclerotic heart disease of [place] coronary artery without angina pectoris ST elevation myocardial infarction (STEMI) Hypertension Home Medications ?Medication ?Instructions ?Recorded ?Last Taken ?Type clopidogrel 75 mg tablet (Plavix) 75 mg PO DAILY antiplatelet #90 04/29/23 Unknown Rx tabs hydrochlorothiazide 25 mg tablet 25 mg PO DAILY BP #90 tabs 04/29/23 Unknown Rx losartan 100 mg tablet 100 mg PO DAILY dose increase (BP) 04/29/23 Unknown Rx #90 tabs metoprolol tartrate 25 mg tablet 25 mg PO BID BP #180 tabs 04/29/23 Unknown Rx nitroglycerin 0.4 mg sublingual 0.4 mg sublingual Q5M PRN Chest 04/29/23 Unknown Rx tablet Pain #25 tabs amlodipine 10 mg tablet 10 mg PO DAILY BP #90 tabs 05/30/23 Unknown Rx aspirin 81 mg tablet,delayed 81 mg PO DAILY@0800 90 days #90 11/11/23 Unknown Rx release tabs atorvastatin 80 mg tablet 80 mg PO QHS 90 days #90 tabs 11/11/23 Unknown Rx denosumab 60 mg/mL subcutaneous 60 mg subcut [id number] #1 mL 12/12/23 Unknown Rx syringe (Prolia) albuterol sulfate 90 mcg/actuation 1 - 2 puff inhalation Q6H PRN PRN 02/29/24 Unknown Rx aerosol inhaler Sob &/Or Wheezing #8.5 grams fluticasone fur. 100 mcg-umeclid 1 inh inhalation Q24H 3 months #60 09/25/24 Unknown Rx 62.5 mcg-vilant 25 mcg ea inhalat.powder (Trelegy Ellipta) pramipexole 1.5 mg tablet 1.5 mg PO QHS #30 tabs 10/02/24 Unknown Rx Allergy/AdvReac Type Severity Reaction Status Date / Time No Known Allergies Allergy Verified 12/28/24 05:24 Family History Father , 52 Myocardial infarction Heart disease Hyperlipemia Brother Myocardial infarction CAD (coronary artery disease) CABG and stents Mother Arthritis Depression Osteoporosis Seizures Son Suicide Depression Other Cancer Surgical History History of tonsillectomy History of oophorectomy History of hysterectomy History of shoulder surgery Stented coronary artery (01/10/19) Social History housing: house Smoking Status: Current every day smoker tobacco type: cigarettes Tobacco: How many years used: 50 alcohol intake: current alcohol intake frequency: holidays/special occasions only Alcohol type: wine substance use type: marijuana caffeine: Yes Type: coffee Number of servings: 3 what type of physical activity do you participate in: none ROS ROS Narrative General: Denies fever/chills HENT: Little bit of a headache, denies stuffy nose, denies sore throat EYES: Denies changes in vision Resp: Denies any new cough, does have some baseline shortness of breath but this is unchanged Cardiac: Denies chest pain currently GI: Denies abdominal pain, denies changes in bowel, denies nausea/vomiting currently : Denies changes in urination Extremity: Denies swelling MSK: Denies weakness Neuro: Denies any numbness/tingling Heme: Denies any bleeding or bruising Skin: Denies rashes Psychiatric: No complaints voiced Vital Signs Vital Signs Vital Signs: 12/28/24 05:19 12/28/24 05:28 12/28/24 06:18 Temperature 98.6 F Temperature Source Oral Pulse Rate 88 83 76 Respiratory Rate 16 20 H 18 Blood Pressure 225/106 H 206/97 H 180/98 H Blood Pressure Mean 145 133 125 Pulse Ox 97 97 95 Oxygen Delivery Method Room Air Room Air Room Air 12/28/24 06:32 12/28/24 07:00 12/28/24 07:00 Temperature Temperature Source Pulse Rate 71 71 72 Respiratory Rate 20 H 20 H 20 H Blood Pressure 188/86 H 193/100 H 193/100 H Blood Pressure Mean 120 131 128 Pulse Ox 94 93 94 Oxygen Delivery Method Room Air Room Air 12/28/24 07:15 12/28/24 08:00 12/28/24 08:41 Temperature Temperature Source Pulse Rate 77 85 Respiratory Rate 15 18 Blood Pressure 188/96 H 190/99 H 190/99 H Blood Pressure Mean 122 129 127 Pulse Ox 95 96 Oxygen Delivery Method Room Air 12/28/24 08:45 12/28/24 09:00 12/28/24 09:33 Temperature 98.2 F Temperature Source Pulse Rate 74 72 79 Respiratory Rate 20 H 19 H 20 H Blood Pressure 195/96 H 185/92 H 189/103 H Blood Pressure Mean 123 116 131 Pulse Ox 95 95 96 Oxygen Delivery Method 12/28/24 09:36 Temperature 98.2 F Temperature Source Oral Pulse Rate 78 Respiratory Rate 19 H Blood Pressure 189/103 H Blood Pressure Mean 131 Pulse Ox 95 Oxygen Delivery Method Room Air Weight Weight: 85.9 kg Body Mass Index (BMI) 32.5 Physical Exam Narrative General: Alert, oriented, no apparent distress HEENT: Atraumatic, normocephalic Eyes: Anicteric, normal conjunctiva, extraocular movements grossly intact Neck: Supple Respiratory: Scattered wheezes, normal respiratory effort Cardiovascular: Regular rate and rhythm GI: Soft, nontender, nondistended Extremities: No edema Musculoskeletal: Moving all extremities Neuro: No overt focal neurological deficits Skin: No rashes appreciated Psych: Cooperative Results Lab / Micro Data 12/28/24 05:22 12/28/24 05:22 Labs: Laboratory Results - last 24 hr 12/28/24 05:22: WBC 12.7 H, RBC 5.05, Hgb 14.6, Hct 44.3, MCV 87.7, MCH 28.9, MCHC 33.0, RDW Std Deviation 44.6 H, RDW Coeff of Joleen 13.9, Plt Count 344, MPV 10.4, Immature Gran % (Auto) 0.400, Neut % (Auto) 71.1 H, Lymph % (Auto) 22.2, [place] % (Auto) 4.8, Eos % (Auto) 0.9, Baso % (Auto) 0.6, Absolute Neuts (auto) 9.0 H, Absolute Lymphs (auto) 2.81, Nucleated RBC % 0, PT 12.8, INR 0.9, APTT 28.6, D-Dimer Quant (PE/DVT) 0.53 H*, Sodium 137, Potassium 4.1, Chloride 99, Carbon Dioxide 22.1, Anion Gap 16 H, BUN 18, Creatinine 0.71, Estim Creat Clear Calc 72.37, Est GFR (MDRD) Non-Af 94, BUN/Creatinine Ratio 25.4 H, Glucose 131 H, Calcium 8.9, Total Bilirubin 0.38, Direct Bilirubin 0.15, AST 20, ALT 16, Alkaline Phosphatase 68, Troponin T High Sens 102 H*, NT pro BNP II 174, Total Protein 7.7, Albumin 4.1, Globulin 3.6, Lipase 29 12/28/24 08:20: Troponin T Hi Sens 2 Hr 116 H* Imaging Radiology Impression Chest X-Ray 12/28/24 06:15 IMPRESSION: No evidence for acute abnormality. Reading [facility] Assessment & Plan Assessment/Plan (1) Chest pain: PLAN: Plan # NSTEMI unclear subtype - Patient presented with burning chest pain rating to her back with the back pain similar to previous MIs concerning that this may be a type I NSTEMI - No EKG changes but initial troponin 102 with increased to 116 - Trend troponins - Continue heparin drip - Cardiology consulted, will keep patient n.p.o. as she may need heart catheterization - Patient has aspirin and Plavix on home medication list as well as metoprolol, will continue - Echo ordered # Hypertensive urgency versus emergency - If cardiac workup otherwise unrevealing may be that patient's elevated troponins were due to her significantly high blood pressure however given her concerning signs and symptoms consistent with a previous TX requiring stenting there is concern this could be a type I TX - Will continue home medications and add as needed -May ultimately need further medication adjustments if patient remains hypertensive - Cardiology consulted #Hx COPD -Continue home inhalers -Incentive spirometer #Tobacco use -Advise cessation -Nicotine replacement available if desired #DVT ppx: Presently on heparin drip Temi Banda MD Charges/Coding Visit Charges Inpatient E&M: 83847 Init Hosp L2
--- NOTE | 2024-12-28 10:39 | CON.PCM.CA_ITS ---
Assessment & Plan Assessment/Plan (1) Non-ST elevated myocardial infarction (non-STEMI): PLAN: Patient's presenting complaints are very similar if not identical to what she presented with prior to her stenting procedure. The patient's ECG does not show any acute ischemic changes although she is pain-free at the time it was performed. Her enzymes are mildly positive at 105 and 115. Her blood pressure was significantly elevated in the 220 range when she first presented it is now down to 180. She did not get relief with sublingual nitro in her home environment although were not certain of the age of her nitro pills. Given the patient's known coronary disease status post stenting of the right coronary artery on 2 separate occasions latest was in 2018. Would recommend the patient proceed with left heart catheterization to definitively rule out progressive coronary artery disease. The patient does continue to smoke her blood pressure has been consistently elevated and difficult to control and we do not know her cholesterol level. She is on intensive statin therapy. She is also on Plavix and aspirin. The cardiac catheterization procedure risk/benefit and alternatives were explained to the patient in detail she voiced understanding and agrees to proceed. The patient is not allergic to iodine. She has been on her Plavix and aspirin. (2) COPD (chronic obstructive pulmonary disease): QUALIFIERS: COPD type: unspecified COPD Qualified Code(s): J44.9 - Chronic obstructive pulmonary disease, unspecified PLAN: Patient carries a history of COPD and has been followed by the pulmonary department here at [facility] in the past. The patient has not been seen in the [place] [facility] since 2022. PLAN: Plan 1. Recommend urgent left heart catheterization. 2. Further recommendations pending the outcome of the catheterization. HPI Consult Data Date of Consult: 12/28/24 HPI Narrative Reason for Consultation: Chest pain and known coronary artery disease HPI Narrative: GIOVANNI LOMAX, is a 69 F who presents with a history of chest discomfort radiating up into her shoulders that started last evening and reminds her of the symptoms she had prior to her stenting procedure. The patient's right coronary has been stented twice. The last time was January 2019. Her mid right coronary was stented and 5 minutes after completing the case her proximal right coronary was spontaneously occluded and was reintervened upon with a second stent. The patient's symptoms were very similar to what she is experiencing in her home that led up to her coming to the ER today. Her ECG is normal however her troponins are positive at 105 up to 115. The patient does have a history of dyspnea on exertion which is chronic and she continues to smoke. Patient also has a history of significant hypertension her blood pressure was 220 when she arrived in the emergency department is now down to 180. We are instituting IV nitroglycerin to better control her blood pressure she is pain-free at this point in time. [facility] Medical History (Updated 12/28/24 @ 10:[address] Alonzo Blackburn MD) Carotid artery disease Urinary frequency History of TIA (transient ischemic attack) Nausea Chronic left hip pain Left shoulder pain Anxiety Smoker Myocardial infarct Health care maintenance Colon cancer screening Flu vaccine need Patient noncompliance Tobacco abuse Anxiety and depression Left hand pain History of fracture of clavicle Fracture Depression Chronic pain COPD (chronic obstructive pulmonary disease) Osteoporosis Pre-op chest exam Hyperlipidemia Atherosclerotic heart disease of [place] coronary artery without angina pectoris ST elevation myocardial infarction (STEMI) Hypertension Home Medications ?Medication ?Instructions ?Recorded ?Last Taken ?Type clopidogrel 75 mg tablet (Plavix) 75 mg PO DAILY antip latelet #90 04/29/23 Unknown Rx tabs hydrochlorothiazide 25 mg tablet 25 mg PO DAILY BP #90 tabs 04/29/23 Unknown Rx losartan 100 mg tablet 100 mg PO DAILY dose increas e (BP) 04/29/23 Unknown Rx #90 tabs metoprolol tartrate 25 mg tablet 25 mg PO BID BP #180 tabs 04/29/23 Unknown Rx nitroglycerin 0.4 mg sublingual 0.4 mg sublingual Q5M PRN Chest 04/29/23 Unknown Rx tablet Pain #25 tabs amlodipine 10 mg tablet 10 mg PO DAILY BP #90 tabs 1 07/30/22 Unknown Rx aspirin 81 mg tablet,delayed 81 mg PO DAILY@0800 90 da ys #90 11/11/23 Unknown Rx release tabs atorvastatin 80 mg tablet 80 mg PO QHS 90 days #90 tab s 11/11/23 Unknown Rx denosumab 60 mg/mL subcutaneous 60 mg subcut [id number] #1 mL 12/12/23 Unknown Rx syringe (Prolia) albuterol sulfate 90 mcg/actuation 1 - 2 puff inhalati on Q6H PRN PRN 02/29/24 Unknown Rx aerosol inhaler Sob &/Or Wheezing #8.5 grams fluticasone fur. 100 mcg-umeclid 1 inh inhalation Q24H 3 months #60 09/25/24 Unknown Rx 62.5 mcg-vilant 25 mcg ea inhalat.powder (Trelegy Ellipta) pramipexole 1.5 mg tablet 1.5 mg PO QHS #30 tabs 10/02 Unknown Rx Allergy/AdvReac Type Severity Reaction Status Date / Time No Known Allergies Allergy Verified 12/28/24 05:24 Family History Father , 52 Myocardial infarction Heart disease Hyperlipemia Brother Myocardial infarction CAD (coronary artery disease) CABG and stents Mother Arthritis Depression Osteoporosis Seizures Son Suicide Depression Other Cancer Surgical History History of tonsillectomy History of oophorectomy History of hysterectomy History of shoulder surgery Stented coronary artery (01/10/19) Social History housing: house Smoking Status: Current every day smoker tobacco type: cigarettes Tobacco: How many years used: 50 alcohol intake: current alcohol intake frequency: holidays/special occasions only Alcohol type: wine substance use type: marijuana caffeine: Yes Type: coffee Number of servings: 3 what type of physical activity do you participate in: none ROS Constitutional Constitutional: Reports as per HPI Eyes Eyes: Reports systems reviewed and no addt'l complaints, except as documented ENT HEENT: Reports systems reviewed and no addt'l complaints, except as documented Cardiovascular Cardiovascular: Reports as per HPI Respiratory/Chest Respiratory/Chest: Reports as per HPI Gastrointestinal Gastrointestinal: Reports systems reviewed and no addt'l complaints, except as documented Genitourinary Genitourinary: Reports systems reviewed and no addt'l complaints, except as documented Musculoskeletal Musculoskeletal: Reports systems reviewed and no addt'l complaints, except as documented Integumentary Integumentary: Reports systems reviewed and no addt'l complaints, except as documented Neurologic Neurologic: Reports systems reviewed and no addt'l complaints, except as documented Psychiatric Psychiatric: Reports systems reviewed and no addt'l complaints, except as documented Endocrine Endocrinology: Reports systems reviewed and no addt'l complaints, except as documented Hematologic/Lymphatic Hematologic/Lymphatic: Reports systems reviewed and no addt'l complaints, except as documented Allergic/Immunologic Allergic/Immunologic: Reports systems reviewed and no addt'l complaints, except as documented Physical Exam Const alert and oriented x3 HEENT normocephalic Eyes EOMs intact bilaterally Neck no JVD and no carotid bruits Chest inspection of chest normal Resp normal respiratory effort and clear to auscultation bilaterally Cardio Rate: regular rate Rhythm: regular rhythm Heart Sounds: S1 normal and S2 normal; Negative for click, gallop or murmur Peripheral Pulses: radial pulses present bilateral 2+ Extremity no pedal edema Skin no rashes or lesions noted Neuro Neuro Narrative: Alert and oriented x 3 Psych mental status grossly normal Risk Stratification Risk Stratification Applicable: Yes Age >/= 65: Yes >/= 3 CAD Risk Factors (HTN, HLD, DM, family hx of CAD, or current smoker): Yes Aspirin Use in the Past 7 Days: Yes Severe Angina (>/= episodes in 24 hours): Yes EKG ST Changes >/= 0.5mm: No Positive Cardiac Marker: Yes DEMOND Risk Stratification Score: 5 DEMOND % Risk: 25% Risk Charges/Coding Visit Charges Inpatient E&M: 64833 Init Hosp L2 Objective Data Vital Signs: Vital Signs Temp Pulse Resp BP Pulse Ox O2 Del Method 98.2 F 78 19 H 189/103 H 95 Room Air 12/28/24 09:36 12/28/24 09:36 12/28/24 09:36 12/28/24 09:36 12/28/24 09:36 12/28/24 09:36 Oxygen Delivery Method Room Air Weight: 189 lb 6.033 oz Body Mass Index (BMI) 32.5 Lab / Micro Data Attestation: I reviewed the patient's lab results. 12/28/24 05:22 12/28/24 05:22 Labs: Laboratory Results - last 24 hr 12/28/24 05:22: WBC 12.7 H, RBC 5.05, Hgb 14.6, Hct 44.3, MCV 87.7, MCH 28.9, MCHC 33.0, RDW Std Deviation 44.6 H, RDW Coeff of [place]ole[place] 13.9, Plt Count 344, MPV 10.4, Immature Gran % (Auto) 0.400, Neut % (Auto) 71.1 H, Lymph % (Auto) 22.2, [place] % (Auto) 4.8, Eos % (Auto) 0.9, Baso % (Auto) 0.6, Absolute Neuts (auto) 9.0 H, Absolute Lymphs (auto) 2.81, Nucleated RBC % 0, PT 12.8, INR 0.9, APTT 28.6, D-Dimer Quant (PE/DVT) 0.53 H*, Sodium 137, Potassium 4.1, Chloride 99, Carbon Dioxide 22.1, Anion Gap 16 H, BUN 18, Creatinine 0.71, Estim Creat Clear Calc 72.37, Est GFR (MDRD) Non-Af 94, BUN/Creatinine Ratio 25.4 H, Glucose 131 H , Calcium 8.9, Total Bilirubin 0.38, Direct Bilirubin 0.15, AST 20, ALT 16, Alkaline Phosphatase 68, Troponin T High Sens 102 H*, NT pro BNP II 174, Total Protein 7.7, Albumin 4.1, Globulin 3.6, Lipase 29 12/28/24 08:20: Troponin T Hi Sens 2 Hr 116 H* Rhythm Strip Rhythm Strip: Sinus Rhythm Rate: 80 Cardiology Labs/Tests 12/28/24 05:22: WBC 12.7 H, RBC 5.05, Hgb 14.6, Hct 44.3, MCV 87.7, MCH 28.9, MCHC 33.0, Plt Count 344, MPV 10.4, Immature Gran % (Auto) 0.400, Neut % (Auto) 71.1 H, Lymph % (Auto) 22.2, [place] % (Auto) 4.8, Eos % (Auto) 0.9, Baso % (Auto) 0.6, Absolute Neuts (auto) 9.0 H, Nucleated RBC % 0, PT 12.8, INR 0.9, APTT 28.6, D-Dimer Quant (PE/DVT) 0.53 H*, Sodium 137, Potassium 4.1, Chloride 99, Carbon Dioxide 22.1, Anion Gap 16 H, BUN 18, Creatinine 0.71, Est GFR (MDRD) Non-Af 94, BUN/Creatinine Ratio 25.4 H, Glucose 131 H, Calcium 8.9, Total Bilirubin 0.38, Direct Bilirubin 0.15 Rhythm: EKG: ECHO: Stress Test: Cardiac Cath: PCI: CT Surgery: Holter monitor: EPS: PPM: CXR: Chest CT Scan: Radiography Diagnostic Testing: Radiology Impression Chest X-Ray 12/28/24 06:15 IMPRESSION: No evidence for acute abnormality. [facility]
--- NOTE | 2024-12-28 10:55 | ED.RN ---
Nitro held per labor operator staff
[2024-12-28 12:16] LABS: ACT Activated Clotting Time 204 sec (74-137)
--- NOTE | 2024-12-28 12:27 | ECHOD_ITS ---
Reason For Study Reason For Study: Chest pain Procedure This was a 2D Doppler, Color Flow transthoracic echocardiogram. Exam performed portable in patient room. Left Ventricle Normal LV size. The estimated ejection fraction is 65 %. No evidence for diastolic dysfunction. No regional wall motion abnormalities noted. Right Ventricle Normal RV size. Normal systolic function. Atria The left and right atria are normal. No doppler evidence for ASD. Mitral Valve There is moderate mitral annular calcification. There is no mitral valve stenosis. No mitral valve insufficiency. Tricuspid Valve There is no tricuspid stenosis. Unable to estimate RV systolic pressure due to inadequate jet, pulmonary artery pressure probably normal. Aortic Valve Trisinus/trileaflet aortic valve. There is no aortic stenosis. No aortic valve insufficiency. Pulmonic Valve There is no pulmonic valvular stenosis. No pulmonic valve insufficiency. Great Vessels Normal sized aortic root. Pericardium/Pleural No pericardial effusion. MMode/2D Measurements & Calculations RVDd: 3.1 cm LVOT diam: 2.0 cm Ao root diam: 3.6 cm LVOT area: 3.3 cm2 LAV(MOD-bp): 36.0 ml LVAd ap4: 23.6 cm2 LVAd ap2: 21.8 cm2 LAV(MOD-bp) Indexed: 18.9 ml/m2 LVLd ap4: 8.1 cm LVLd ap2: 7.9 cm LAV(MOD-sp2): 38.3 ml EDV(MOD-sp4): 58.2 ml EDV(MOD-sp2): 50.9 ml LAV(MOD-sp4): 27.3 ml EDV(sp4-el): 58.4 ml EDV(sp2-el): 50.7 ml LVAs ap4: 12.6 cm2 LVAs ap2: 11.7 cm2 LVLs ap4: 6.9 cm LVLs ap2: 7.0 cm ESV(MOD-sp4): 20.6 ml ESV(MOD-sp2): 18.2 ml ESV(sp4-el): 19.3 ml ESV(sp2-el): 16.6 ml EF(MOD-sp4): 64.6 % EF(MOD-sp2): 64.2 % EF(sp4-el): 66.9 % SV(MOD-sp4): 37.6 ml SV(MOD-sp2): 32.7 ml SV(sp4-el): 39.1 ml SI(MOD-sp4): 19.7 ml/m2 SI(MOD-sp2): 17.2 ml/m2 LA dimension(2D): 3.2 cm LA A4 area: 12.2 cm2 RA A4 area: 11.5 cm2 TAPSE: 2.0 cm Doppler Measurements & Calculations MV E max flash: 84.5 cm/sec Lat Peak E' Flash: 8.6 cm/sec Med Peak E' Flash: 7.2 cm/sec MV A max flash: 108.3 cm/sec E/E' lat: 9.9 E/E' med: 11.8 MV E/A: 0.78 Ao V2 max: 171.8 cm/sec LV V1 max: 120.1 cm/sec SV(LVOT): 86.5 ml Ao max P.8 mmHg LV V1 max P.8 mmHg Ao V2 mean: 111.8 cm/sec LV V1 mean P.3 mmHg Ao mean P.8 mmHg LV V1 mean: 85.1 cm/sec Ao V2 VTI: 35.3 cm LV V1 VTI: 26.2 cm AV (velocity ratio): 0.74 BROOK(I,D): 2.5 cm2 BROOK(V,D): 2.3 cm2 PA V2 max: 92.3 cm/sec ECHO/Echo Complete Interpretation Summary The estimated ejection fraction is 65 %. No evidence for diastolic dysfunction. Ordering Physician: Temi Banda Referring Physician: Neida Traore Performed By: Kathleen, Azalea, RDCS
--- NOTE | 2024-12-28 12:27 | EKG12_ITS ---
Test Reason : ADMIT Blood Pressure : */* mmHG Vent. Rate : 73 BPM Atrial Rate : 73 BPM P-R Int : 172 ms QRS Dur : 78 ms QT Int : 426 ms P-R-T Axes : 71 51 -9 degrees QTcB Int : 469 ms Normal sinus rhythm Nonspecific T wave abnormality Abnormal ECG When compared with ECG of 28-Dec-2024 05:24, MANUAL COMPARISON REQUIRED DATA IS UNCONFIRMED Confirmed by KECIA LYNNE, MARTA ([id number]), editor managing newspaper FELICITAS CHRISTIE ([id number]) on 01/01/2025 6:38:34 AM Referred By: Confirmed By: MARTA MCDONNELL MD
--- NOTE | 2024-12-28 12:27 | CRPHASE1 ---
Patient Communication Patient Information Former Patient:: Phase I PHII Cardiac Rehab Discussed with Patient:: Yes Guide to Cardiac Rehab Given to Patient:: Yes Cardiac Rehab Facility Choice List Given to Patient:: Yes Communication to Cardiac Rehab Choice Program [facility] CR PHII:: Communication Given to CR Planning Coordinator:: Tony Fernandez Phase II Cardiac Rehab:: Yes Sessions:: 36 sessions - 3 days/wk, 12 weeks Cardiac Rehabilitation Info Program Information Cardiac Rehabilitation Program Information: Cardiac Rehab The cardiac rehab team at [facility] consists of highly skilled exercise physiologists, nurses, respiratory therapists and physicians working together with you. Our purpose is to help you have a full recovery and achieve the goals you set for yourself. Over the years many of our patients have returned to activities they assumed they would never do again! We can help restore your confidence and motivation to make lifestyle changes that can have a significant impact on your health and quality of life! We can help answer questions and concerns you may have about exercise, lifestyle, medications, diet, stress and anxiety which are common following a hospitalization. WE monitor ECG and vital signs during exercise and discuss your progress with you and report to your physician(s). Cardiac Rehab is proven to help reduce readmissions, improve functional capacity and lower recurrence of problems with your heart. Our Cardiac Rehab program is Certified by the [place] [employer] and Pulmonary [employer] (AACVPR) and Accredited by the [place] [employer] through our [facility]. You can contact us at . We invite you to call us with your questions or to get started in our program. If you have other questions or concerns be sure to ask your physician/provider during your follow-up visit. WE look forward to seeing you!
--- NOTE | 2024-12-28 12:28 | CRPH1.INST_ITS ---
General Education Discussed with Patient CAD and cardiac anatomy and function:: Patient communicates acknowledgment, Family communicates acknowledgment and Needs reinforcement Explanation of diagnoses and procedures:: Patient communicates acknowledgment, Family communicates acknowledgment and Needs reinforcement Sign/Symptoms of MO:: Patient communicates acknowledgment, Family communicates acknowledgment and Needs reinforcement Antiplatelet therapy: Patient communicates acknowledgment, Family communicates acknowledgment and Needs reinforcement Proper use of NTG-SL: Patient communicates acknowledgment, Family communicates a cknowledgment and Needs reinforcement Emergency procedures and activation of EMS: Patient communicates acknowledgment, Family communicates acknowledgment and Needs reinforcement Compliance of all prescribed medications: Patient communicates acknowledgment, Family communicates acknowledgment and Needs reinforcement Smoking Risk Factors Patient Nicotine/Smoking Risk Factors Are:: Cigarettes Recommendations Recommendations Include:: Smoking cessation strategies/Smoking packet and Participation in a smoking cessation program Response Code Nicotine/Smoking Response Code:: Patient communicates acknowledgment, Family communicates acknowledgment and Needs reinforcement Dyslipidemia Risk Factors Patient Dyslipidemia Risk Factors Are:: Total Cholesterol, Triglycerides, HDL and LDL Recommendations Recommendations Include:: Lipid profile not available Response Code Dyslipidemia Response Code:: Patient communicates acknowledgment, Family communicates acknowledgment and Needs reinforcement Overweight/Obesity Risk Factors Patient Overweight/Obesity Risk Factors Are:: Obesity - > or = 30 Recommendations Recommendations Include:: Weight loss of 5-10%, Reduced calorie diet and Exercise 5-7 times/week Response Code Overweight/Obesity:: Patient communicates acknowledgment, Family communicates acknowledgment and Needs reinforcement Hypertension Recommendations Recommendations Include:: Maintain BP <130/85, Decrease/maintain normal body weight and Moderation of ETOH Response Code Hypertension:: Patient communicates acknowledgment, Family communicates acknowledgment and Needs reinforcement Heart Disease Risk Factors Patient Heart Disease Risk Factors Are:: Previous cardiac event Recommendations Recommendations Include:: Educated family members of their risk and Educated family members of importance of prevention of heart disease Response Code Heart Disease Response Code:: Patient communicates acknowledgment, Family communicates acknowledgment and Needs reinforcement Sedentary Risk Factors Patient Sedentary Risk Factors Are:: Lack of regular exercise Recommendations Recommendations Include:: Aerobic exercise 5-7 times/week for 20-30 minutes continuously, Benefits of regular exercise, Discussed home walking program and Monitored Outpatient Cardiac Rehab Response Code Sedentary Response Code:: Patient communicates acknowledgment, Family communicat es acknowledgment and Needs reinforcement
[2024-12-28] MEDS: Ipratropium/Albuterol Sulfate 3 ML AMPUL.NEB INHALATION (13:05)
[2024-12-28] MEDS: Aspirin 81 MG TAB.CHEW 324 MG PO (13:20)
--- NOTE | 2024-12-28 14:15 | CASEMGMT ---
PRINCE GUZMAN Assessment: Face to Face with pt for initial transition planning/care coordination assessment. RN THOMAS introduced self and role at [facility], pt voices understanding and consents to assessment. Pt is A&O x4 and answers all questions appropriately at this time. Nurse present in room. Pt sitting on eob with oxygen on in no distress. Care providers, pharmacy, and demographics verified/updated. Admitting Dx: CP Strata Score: 2 PCP:Eugenie Specialists:JANEY, cardio Preferred [facility]acy: [facility] Insurance: [email or web address], [employer] Prescription Benefit: yes LNOK: Weston Boyle, Living Arrangements: Pt lives with in a two story home with FFUS and 2+1 step to enter with a rail. Pt reports she is I in ADL/IADLs and denies concerns at home. Transportation: Pt drives self and denies concerns with transportation. DME:Denies HHC/SNF: Denies hx of Pt states no concerns with going home at time of dc. Pt does not anticipate any homegoing needs. Pt states no further concerns/needs. CM to follow. Advised pt to ask CM if any further questions/concerns/needs arise, voices understanding. Pt Goal: Home Plan: Home pending course of hospitalization Deanna MORRISON CM
--- NOTE | 2024-12-28 16:14 | PCM.HOSP.N ---
Hospitalist Note Patient reported shortness of breath about an hour after she reached the floor, other than her hypertension she is vitally stable with no tachycardia and O2 sat 98% on room air, she was put on 2 L for comfort. Went to evaluate patient at bedside and she reports that this started after getting to the floor, she is not coughing and has no other new or acute complaints including chest pain other than feeling anxious because of the shortness of breath. Lungs clear to auscultation, heart regular rate and rhythm. Patient was given Brilinta before coming to the floor and strongly suspect this is the cause of her shortness of breath. Discussed with cardiology who also suspect this is the etiology of her shortness of breath given her otherwise normal vital signs and physical exam, so this has been discontinued and Plavix will be resumed and patient will continue to be monitored. Could consider further workup if symptoms worsen or patient has any vital abnormalities however at this time given the high suspicion of medication side effect do not feel further workup is necessary.
[2024-12-28] MEDS: Pramipexole Di-HCl 0.5 MG Tablet 1.5 MG PO (21:08)
[2024-12-28] MEDS: Metoprolol Tartrate 25 MG Tablet PO (21:09)
[2024-12-28] MEDS: Atorvastatin Calcium 80 MG Tablet PO (21:09)
[2024-12-29 03:05] VITALS: BP 136/78; PULSE 67; RESP 16; TEMP 36.3; O2SAT 97
[2024-12-29] MEDS: Ketorolac 15 MG/ML Vial IM (03:46)
[2024-12-29] MEDS: Mag Hydrox/Al Hydrox/Simeth 30 ML UDC PO (03:46)
[2024-12-29] MEDS: Lidocaine 2% Viscous15 ML UDC 15 ML PO (03:46)
[2024-12-29] MEDS: Ipratropium/Albuterol Sulfate 3 ML AMPUL.NEB INHALATION (04:33)
[2024-12-29] MEDS: Budesonide Respules 0.5 MG/2 ML AMPUL.NEB. INHALATION (04:33)
[2024-12-29 04:56] VITALS: BMI 33.2
[2024-12-29 06:50] LABS: Absolute Lymphocyte Count 1.95 X10^3/uL (0.83-4.51); Absolute Neutrophil Count 7.2 X10^3/uL (2.0-7.7); Basophil# 0.05 X10^3/uL; Basophil% 0.5 % (0-1); Eosinophil# 0.16 X10^3/uL; Eosinophils% 1.6 % (0-5); Hemoglobin 14.1 g/dL (12.0-15.0); Lymphocyte # 1.95 X10^3/ul (0.83-4.51); Lymphocyte % 19.7 % (19-41); Mean Corp Hgb Conc 32.8 g/dL (32-36); Mean Corpuscular Hgb 28.8 pg (27.0-32.0); Mean Corpuscular Volume 87.9 fL (81-99); Mean Platelet Vol. 9.8 fl (6.2-12.0); Monocyte# 0.55 X10^3/uL; Monocyte% 5.5 % (0-10); NRBC Flagged by Analyzer 0 % (0-5); Neutrophil # 7.18 X10^3/uL (2.7-7.7); Neutrophil % 72.4 % (47-70); Platelet Count 326 K/mm3 (150-450); RBC Distribution Width CV 13.9 % (11.6-14.6); RBC Distribution Width SD 44.6 fl (35.1-43.9); Red Blood Count 4.89 M/mm3 (4.2-5.4); White Blood Count 9.9 K/mm3 (4.4-11.0)
[2024-12-29 06:54] VITALS: PULSE 70; RESP 18; O2SAT 92
[2024-12-29 07:23] LABS: Prothrombin Time (Protime)PT. 12.8 SECONDS (11.7-14.9)
[2024-12-29 07:35] LABS: ALB/GLOB Ratio 1.2 RATIO (0.9-2.4); AST(SGOT) 27 U/L (<=31); Alanine Aminotransfer ALT/SGPT 16 U/L (<=34); Albumin, Serum 3.9 g/dL (3.4-4.8); Alkaline Phosphatase 63 U/L (35-104); Anion Gap 12 (5-15); BUN 25 mg/dL (4-19); BUN/Creat Ratio 29.3 RATIO (10-20); Calcium,Total 8.8 mg/dL (7.6-11.0); Carbon Dioxide 25.2 mmol/L (21.0-32.0); Chloride 102 mmol/L (98-108); Creatinine, Serum 0.84 mg/dL (0.70-1.20); EST Glomerular Filtration Rate 77 (>60); Estimated Creatinine Clearance 69.66 ml/min (50-250); Globulin 3.2 g/dL (2.2-4.2); Glucose 132 mg/dL (70-99); Potassium 3.6 mmol/L (3.3-5.1); Protein, Total 7.1 g/dL (5.9-8.4); Sodium Level 139 mmol/L (133-145); Thyroid Stim Hormone (TSH) 0.775 uIU/mL (0.300-4.200); Total Bilirubin 0.59 mg/dL (0.00-1.30)
[2024-12-29 09:05] VITALS: BP 157/89; PULSE 74; RESP 18; TEMP 36.6; O2SAT 95
[2024-12-29] MEDS: Aspirin 81 MG TAB.CHEW PO (09:13)
[2024-12-29] MEDS: amLODIPine 10 MG Tablet PO (09:13)
[2024-12-29] MEDS: Clopidogrel Bisulfate 75 MG Tablet PO (09:13)
[2024-12-29 09:14] VITALS: BP 157/89; PULSE 74
[2024-12-29] MEDS: Losartan Potassium 100 MG Tablet PO (09:14)
[2024-12-29] MEDS: Metoprolol Tartrate 25 MG Tablet PO (09:14)
[2024-12-29] MEDS: hydroCHLOROthiazide 25 MG Tablet PO (09:14)
--- NOTE | 2024-12-29 09:49 | PCM.PN.CARD ---
Subjective Subjective Patient resting comfortably in the bed. She denies any chest pain denies any significant shortness of breath. The patient did have a reaction to Brilinta where she became profoundly short of breath yesterday and resolved spontaneously. She had been on Plavix long-term and Plavix was reinstituted at 75 mg daily. The patient's ECG is consistent with an evolving inferior wall insult she has had no recurrence of any chest symptoms since her procedure. The patient's had no significant ectopy documented on the telemetry. Objective Data Vital Signs: Vital Signs Temp Pulse Resp BP Pulse Ox O2 Del Method O2 Flow Rate 97.8 F 74 18 157/89 H 95 Room Air 2 12/29/24 09:05 12/29/24 09:14 12/29/24 09:05 12/29/24 09:14 12/29/24 09:05 12/29/24 09:05 12/28/24 21:07 Oxygen Flow Rate (L/min) 2 Oxygen Delivery Method Room Air Weight: 193 lb 5.526 oz Body Mass Index (BMI) 33.2 Intake & Output: Intake and Output for Last 24 Hours 12/27/24 12/28/24 12/29/24 23:59 23:59 23:59 Intake Total 268.17 / 268.17 Balance 268.17 / 268.17 Lab / Micro Data Attestation: I reviewed the patient's lab results. 12/29/24 06:23 12/29/24 06:23 Labs: Laboratory Results - last 24 hr 12/28/24 10:50: Activated Clotting Time 204 H 12/29/24 06:23: WBC 9.9, RBC 4.89, Hgb 14.1, Hct 43.0, MCV 87.9, MCH 28.8, MCHC 32.8, RDW Std Deviation 44.6 H, RDW Coeff of Joleen 13.9, Plt Count 326, MPV 9.8, Immature Gran % (Auto) 0.300, Neut % (Auto) 72.4 H, Lymph % (Auto) 19.7, [place] % (Auto) 5.5, Eos % (Auto) 1.6, Baso % (Auto) 0.5, Absolute Neuts (auto) 7.2, Absolute Lymphs (auto) 1.95, Nucleated RBC % 0, PT 12.8, INR 1.0, Sodium 139, Potassium 3.6, Chloride 102, Carbon Dioxide 25.2, Anion Gap 12, BUN 25 H, Creatinine 0.84, Estim Creat Clear Calc 69.66, Est GFR (MDRD) Non-Af 77, BUN/Creatinine Ratio 29.3 H, Glucose 132 H, Calcium 8.8, Total Bilirubin 0.59, AST 27, ALT 16, Alkaline Phosphatase 63, Total Protein 7.1, Albumin 3.9, Globulin 3.2, Albumin/Globulin Ratio 1.2, TSH 0.775 Rhythm Strip Rhythm Strip: Sinus Rhythm Rate: 70 Cardiology Labs/Tests 12/29/24 06:23: WBC 9.9, RBC 4.89, Hgb 14.1, Hct 43.0, MCV 87.9, MCH 28.8, MCHC 32.8, Plt Count 326, MPV 9.8, Immature Gran % (Auto) 0.300, Neut % (Auto) 72.4 H, Lymph % (Auto) 19.7, [place] % (Auto) 5.5, Eos % (Auto) 1.6, Baso % (Auto) 0.5, Absolute Neuts (auto) 7.2, Nucleated RBC % 0, PT 12.8, INR 1.0, Sodium 139, Potassium 3.6, Chloride 102, Carbon Dioxide 25.2, Anion Gap 12, BUN 25 H, Creatinine 0.84, Est GFR (MDRD) Non-Af 77, BUN/Creatinine Ratio 29.3 H, Glucose 132 H, Calcium 8.8, Total Bilirubin 0.59 Rhythm: EKG: ECHO: Stress Test: Cardiac Cath: PCI: CT Surgery: Holter monitor: EPS: PPM: CXR: Chest CT Scan: Physical Exam Const alert and oriented x3 HEENT normocephalic Eyes EOMs intact bilaterally Neck no JVD Chest inspection of chest normal Resp normal respiratory effort Auscultation: diminished lung sounds bilateral lower Cardio Rate: regular rate Rhythm: regular rhythm Heart Sounds: S1 normal and S2 normal; Negative for click, gallop or murmur Peripheral Pulses: radial pulses present right (Minor ecchymoses neurovascular intact.) 1+ Extremity no pedal edema Neuro Neuro Narrative: Alert and oriented x 3 Psych mental status grossly normal Assessment & Plan Assessment/Plan (1) Non-ST elevated myocardial infarction (non-STEMI): PLAN: Patient had ECG changes consistent with a non-X7 elevation infarct. She underwent stenting of the severely diseased right coronary artery and IFR was negative of the LAD lesion. Patient was intolerant of Brilinta as she is back on her home dose of Plavix with aspirin. She must continue this uninterrupted for at least 1 year. The patient's had no significant ectopy to date. I would recommend the patient be up and ambulated in the halls if she tolerates ambulation with appropriate O2 saturations on room air and has no significant ectopy she could be able to be discharged to home later today. I discussed this in detail with the hospitalist and nursing team. (2) COPD (chronic obstructive pulmonary disease): QUALIFIERS: COPD type: unspecified COPD Qualified Code(s): J44.9 - Chronic obstructive pulmonary disease, unspecified PLAN: The patient will continue her home treatments for her COPD. (3) Hyperlipidemia: QUALIFIERS: Hyperlipidemia type: pure hypercholesterolemia Qualified Code(s): E78.00 - Pure hypercholesterolemia, unspecified PLAN: Patient is already on intensive statin therapy in her home environment and atorvastatin 80 mg daily. She will continue this. (4) Hypertension: QUALIFIERS: Hypertension type: essential hypertension Qualified Code(s): I10 - Essential (primary) hypertension PLAN: Blood pressure is much better controlled today. She will continue her current medical therapy. PLAN: Plan 1. Ambulated in the halls with O2 saturation check and monitoring for any significant arrhythmias. 2. Can discharge to home later today if no significant arrhythmias documented. 3. Patient to follow-up with Edilia advanced practitioner in the [facility] in 7 to 10 days. 4. Patient will follow-up with Dr. Blcakburn in 4 to 6 weeks in the [facility] office. Charges/Coding Visit Charges Inpatient E&M: 43655 Subs Hosp L2
--- NOTE | 2024-12-29 10:00 | EKG12_ITS ---
Test Reason : AM EKG Blood Pressure : */* mmHG Vent. Rate : 70 BPM Atrial Rate : 70 BPM P-R Int : 164 ms QRS Dur : 76 ms QT Int : 486 ms P-R-T Axes : 69 49 -55 degrees QTcB Int : 524 ms Normal sinus rhythm ST & T wave abnormality, consider inferolateral ischemia Prolonged QT Abnormal ECG When compared with ECG of 28-Dec-2024 13:01, MANUAL COMPARISON REQUIRED DATA IS UNCONFIRMED Confirmed by KECIA LYNNE, MARTA ([id number]), editor map FELICITAS CHRISTIE ([id number]) on 01/01/2025 6:38:09 AM Referred By: Confirmed By: MARTA MCDONNELL MD
[2024-12-29 11:14] VITALS: O2SAT 93
--- NOTE | 2024-12-29 12:47 | CASEMGMT ---
Provided pt with a local healthcare provider directory per request as pt is interested in changing pcp's.
--- NOTE | 2024-12-29 14:14 | PCM.DC.SUM ---
Providers Date of Admission: 12/28/24 Date of Discharge: 12/29/24 Primary Care Physician: Dr. Neida Traore MD Consultations 12/28/24 12:27 Consult: Cardiology Routine Consulting Provider: Alonzo Blackburn Reason for Consult: Chest Pain EMERGENT Consult: No MD Notified: Yes Date Notified: 12/28/24 Time Notified: 10:28 Method of Notification: Verbal Reason For Visit: CHEST PAIN Diagnosis Discharge Diagnosis (1) Non-ST elevated myocardial infarction (non-STEMI): Status: Acute Code(s): I21.4 - Non-ST elevation (NSTEMI) myocardial infarction (2) COPD (chronic obstructive pulmonary disease): Status: Chronic Code(s): J44.9 - Chronic obstructive pulmonary disease, unspecified Qualifiers: COPD type: unspecified COPD Qualified Code(s): J44.9 - Chronic obstructive pulmonary disease, unspecified (3) Hyperlipidemia: Status: Acute Code(s): E78.5 - Hyperlipidemia, unspecified Qualifiers: Hyperlipidemia type: pure hypercholesterolemia Qualified Code(s): E78.00 - Pure hypercholesterolemia, unspecified (4) Hypertension: Status: Chronic Code(s): I10 - Essential (primary) hypertension Qualifiers: Hypertension type: essential hypertension Qualified Code(s): I10 - Essential (primary) hypertension Plan #Type I NSTEMI #CAD s/p PCI #HTN Urgency #COPD #Tobacco use Medications at Discharge Home Medications clopidogrel 75 mg tablet (Plavix) 75 mg PO DAILY antiplatelet #90 tabs 04/29/23 hydrochlorothiazide 25 mg tablet 25 mg PO DAILY BP #90 tabs 04/29/23 losartan 100 mg tablet 100 mg PO DAILY dose increase (BP) #90 tabs 04/29/23 metoprolol tartrate 25 mg tablet 25 mg PO BID BP #180 tabs 04/29/23 nitroglycerin 0.4 mg sublingual tablet 0.4 mg sublingual Q5M PRN Chest Pain #25 tabs 04/29/23 amlodipine 10 mg tablet 10 mg PO DAILY BP #90 tabs 05/30/23 aspirin 81 mg tablet,delayed release 81 mg PO DAILY@0800 90 days #90 tabs 11/11/23 atorvastatin 80 mg tablet 80 mg PO QHS 90 days #90 tabs 11/11/23 denosumab 60 mg/mL subcutaneous syringe (Prolia) 60 mg subcut [id number] #1 mL 12/12/23 albuterol sulfate 90 mcg/actuation aerosol inhaler 1 - 2 puff inhalation Q6H PRN PRN Sob &/Or Wheezing #8.5 grams 02/29/24 fluticasone fur. 100 mcg-umeclid 62.5 mcg-vilant 25 mcg inhalat.powder (Trelegy Ellipta) 1 inh inhalation Q24H 3 months #60 ea 09/25/24 pramipexole 1.5 mg tablet 1.5 mg PO QHS #30 tabs 10/02/24 Hospital Course Procedures - (Heart catheterization with stent placement) Summary of Care Provided Minutes Spent on Discharge: 32 Hospital Course: Per HPI: GIOVANNI LOMAX, is a 69 F with a history of coronary artery disease with 2 previous stents, hypertension, COPD, tobacco use who presented [facility] ED 12/27/2024 due to chest pain. In the ED patient did initially have a blood pressure of 225/106 with downtrend into 180s, heart rate of 88, respiratory rate 16 and 97% on room air. EKG with no overt ischemic changes but initial troponin 102 with repeat of 116, patient placed on heparin drip and hospitalist contacted for admission. Patient evaluated at bedside and reports she had been in her usual health until last night when she had some nausea, she went to bed and woke up with burning in the center of her chest that radiated between her shoulder blades. The pain in her back was similar to previous heart attacks prompting her to come to the ED. Patient currently has a little bit of a headache but reports not presently having the pain in the front of her chest or nausea. Denies any other new or acute complaints INTERVAL HISTORY: Patient went to [facility] shortly after presentation and underwent stenting of a severely diseased RCAWhich she tolerated well. She did get Brilinta. Heart cath and developed shortness of breath but was completely vitally stable with no tachycardic or hypoxia and physical exam normal, it was discussed with cardiology and felt to be Brilinta so this was discontinued and patient's Plavix was resumed and the symptoms resolved. Patient did have some EKG changes but it was felt that this was Evolving residual changes from original event. Initially admission for 1 more day of monitoring for any arrhythmias was discussed with patient but she was adamant that she would be DC home today, ultimately she was agreeable to ambulating the halls and evaluating for hypoxia and if she did not have any ectopy on telemetry by this afternoon she would DC home on current medications and follow-up closely with cardiology which patient was agreeable. Patient ambulated in the halls and maintained 93% without oxygen and had no significant ectopy though necessitate further admission. Patient evaluated bedside denies any current recurrence of chest or back pain, she has no other new or acute complaints. Verbalizes understanding to follow-up cardiology. Prior to DC patient with no significant ectopy on telemetry. Patient discharged home in stable condition with the following discharge instructions: DISCHARGE INSTRUCTIONS PLEASE READ *Please take this with you to your next doctors appointment* -Do only light and easy activities for 2 to 3 days after your stent placement, ask for help with chores and errands while you recover and have someone drive you to your appointments. -Unless your job involves lifting you may return to normal activities within 2 days -Please take your medications as prescribed, do not skip doses -Check your incisions every day for signs of infection which would include redness, swelling, leaking. It is normal to have a small bruise or bump where the catheter was placed but a bruise that is getting larger is not normal. Please tell your healthcare team about this. Please proceed to the emergency department if you have uncontrollable bleeding from the site. -It is important to eat a diet that is low in fat, salt, and cholesterol -You will be set up with cardiac rehab upon discharge, it is important that you follow-up -Okay to shower from the day after your heart catheterization but keep your incision site clean and dry. -You will need to follow-up with cardiology upon discharge in 7 to 10 days, please call the office upon discharge to schedule your hospital follow-up appointment (ph [phone]) with Edilia Avilez - it is strongly advised to refrain from smoking - please continue your aspirin, atorvastatin, Plavix, metoprolol as well as your other home medications -Please call your primary care provider's office upon discharge to schedule a hospital follow up within 1 week. -For any concerning signs or symptoms please call 911 or proceed to the nearest emergency department Physical Exam Narrative General: Alert, oriented, no apparent distress HEENT: Atraumatic, normocephalic Eyes: Anicteric, normal conjunctiva, extraocular movements grossly intact Neck: Supple Respiratory: Clear to auscultation bilaterally, normal respiratory effort Cardiovascular: Regular rate and rhythm GI: Soft, nontender, nondistended Extremities: No edema Musculoskeletal: Moving all extremities Neuro: No overt focal neurological deficits Skin: No rashes appreciated Psych: Cooperative Weight / BMI Weight Weight: 87.7 kg Body Mass Index (BMI) 33.2 ABG / Lab / Microbiology Data 12/29/24 06:23 12/29/24 06:23 Laboratory: Laboratory Results - last 24 hr 12/29/24 06:23: WBC 9.9, RBC 4.89, Hgb 14.1, Hct 43.0, MCV 87.9, MCH 28.8, MCHC 32.8, RDW Std Deviation 44.6 H, RDW Coeff of Joleen 13.9, Plt Count 326, MPV 9.8, Immature Gran % (Auto) 0.300, Neut % (Auto) 72.4 H, Lymph % (Auto) 19.7, [place] % (Auto) 5.5, Eos % (Auto) 1.6, Baso % (Auto) 0.5, Absolute Neuts (auto) 7.2, Absolute Lymphs (auto) 1.95, Nucleated RBC % 0, PT 12.8, INR 1.0, Sodium 139, Potassium 3.6, Chloride 102, Carbon Dioxide 25.2, Anion Gap 12, BUN 25 H, Creatinine 0.84, Estim Creat Clear Calc 69.66, Est GFR (MDRD) Non-Af 77, BUN/Creatinine Ratio 29.3 H, Glucose 132 H, Calcium 8.8, Total Bilirubin 0.59, AST 27, ALT 16, Alkaline Phosphatase 63, Total Protein 7.1, Albumin 3.9, Globulin 3.2, Albumin/Globulin Ratio 1.2, TSH 0.775 D/C Instructions Discharge Diet: - (DASH diet) Discharge Activity: - (Additional post-cath instructions given) DC O2, CPAP, BIPAP Needs Home O2 Discharge instructions: No Meaningful Use Info Meaningful Use Meaningful Use Diagnoses (Choose all that apply): AMI AMI/Post PCI/Angioplasty Aspirin given w/in 24hrs of arrival?: Yes ASA at discharge?: Yes Antiplatelet Therapy at Discharge:: Yes Statins at discharge?: Yes Juan/ARB at discharge?: Yes Beta Lorraine at discharge?: Yes Done w/ Acute MD measure.: Yes Ischemic Stroke Statin Dosing Therapy Reference: STATIN DOSE THERAPY REFERENCE: * Patients > 75 years receive moderate or high dose statin therapy. * Patients 75 years or YOUNGER should receive HIGH intensity statin dose unless contraindicated. You will be required to document reason for non-treatment if statin daily dose does not meet guidelines. HIGH DOSE STATIN THERAPY DAILY Atorvastatin > than or = to 40 mg Rosuvastatin > than or = to 20 mg Amlodipine + Atorvastatin > than or = to 2.5/40 mg Ezetimibe + Simvastatin 10/80 mg Simvastatin 80mg Discharge Plan Admission Admit Date/Time: 12/28/24 10:09 Primary Reason for Your Visit: Chest burning and back pain Attending Provider: Temi Banda Primary Care Provider: Neida Traore Consulting Providers: Alonzo Blackburn Instructions Patient Instructions: Cardiac Cath Transradial Additional Instructions / Restrictions: DISCHARGE INSTRUCTIONS PLEASE READ *Please take this with you to your next doctors appointment* -Do only light and easy activities for 2 to 3 days after your stent placement, ask for help with chores and errands while you recover and have someone drive you to your appointments. -Unless your job involves lifting you may return to normal activities within 2 days -Please take your medications as prescribed, do not skip doses -Check your incisions every day for signs of infection which would include redness, swelling, leaking. It is normal to have a small bruise or bump where the catheter was placed but a bruise that is getting larger is not normal. Please tell your healthcare team about this. Please proceed to the emergency department if you have uncontrollable bleeding from the site. -It is important to eat a diet that is low in fat, salt, and cholesterol -You will be set up with cardiac rehab upon discharge, it is important that you follow-up -Okay to shower from the day after your heart catheterization but keep your incision site clean and dry. -You will need to follow-up with cardiology upon discharge in 7 to 10 days, please call the office upon discharge to schedule your hospital follow-up appointment ( [phone]) with Edilia Avilez - it is strongly advised to refrain from smoking - please continue your aspirin, atorvastatin, Plavix, metoprolol as well as your other home medications -Please call your primary care provider's office upon discharge to schedule a hospital follow up within 1 week. -For any concerning signs or symptoms please call 911 or proceed to the nearest emergency department Discharge Orders/Prescriptions Prescriptions: Continued Prolia 60 mg/mL syringe 60 mg subcut [id number] Qty: 1 1RF atorvastatin 80 mg tablet 80 mg PO QHS 90 Days Qty: 90 0RF aspirin 81 MG tablet 81 mg PO DAILY@0800 90 Days Qty: 90 0RF clopidogrel [Plavix] 75 mg tablet 75 mg PO DAILY Qty: 90 3RF hydrochlorothiazide 25 mg tablet 25 mg PO DAILY Qty: 90 3RF losartan 100 mg tablet 100 mg PO DAILY Qty: 90 3RF metoprolol tartrate 25 mg tablet 25 mg PO BID Qty: 180 3RF nitroglycerin 0.4 mg tablet, sublingual 0.4 mg sublingual Q5M PRN (Reason: Chest Pain) Qty: 25 3RF amlodipine 10 mg tablet 10 mg PO DAILY Qty: 90 3RF albuterol sulfate 90 mcg/actuation HFA aerosol inhaler 1 - 2 puff inhalation Q6H PRN PRN (Reason: Sob &/Or Wheezing) Qty: 8.5 0RF Trelegy Ellipta 100-62.5-25 mcg blister with device 1 inh inhalation Q24H 90 Days Qty: 60 2RF pramipexole 1.5 mg tablet 1.5 mg PO QHS Qty: 30 1RF Referrals / Follow Up: Neida Traore MD [Primary Care Provider] - Within 1 Week Ediila Avilez PA [Med Staff - Adv Practice Prof] - Within 2 Weeks (-You will need to follow-up with cardiology upon discharge in 7 to 10 days, please call the office upon discharge to schedule your hospital follow-up appointment (ph [phone]) with Edilia Avilez) Disposition Disposition (needs filled in before D/C Order can be placed): Home, Self Care Charges/Coding Visit Charges Inpatient E&M: 98933 Disch Hosp >30min
[2024-12-29 14:35] VITALS: BP 157/89; PULSE 74; RESP 18; TEMP 36.6; O2SAT 95
--- NOTE | 2025-02-18 09:45 | CL.I_ITS ---
Patient Name: GIOVANNI LOMAX Study Date: 12/28/2024 Performing: Jazmin Fernandez MD Ht: 64 inches 162.56 cm : 1955 Wt: 189.99 lbs 86.18 kg Age: 69 Gender: female BSA: 1.91 PROCEDURE(S) PERFORMED DC02-(56294)LHC/COR IC12-([id number])EMPERATRIZ W/WO PTCA, SINGLE CORONARY ARTERY IC10-(35680)FFR, CORONARY OR GRAFT, INITIAL VESSEL CLINICAL PROFILE AND CO-MORBIDITIES Indications: ACS <= 24 hrs, NSTEMI Heart Failure: None CONCLUSIONS CAD as described. Successful EMPERATRIZ to in-stent restenosis in the mid RCA. RECOMMENDATIONS DESCRIPTION OF PROCEDURE The patient arrived to the procedure lab. The risks and benefits of the procedure as well as a full description of our services here and lack of surgical backup were fully explained to the patient and/or their significant other prior to the catheterization. The Timeout was completed, verifying the correct patient and procedure. The patient's procedural site was prepped and draped in the usual fashion. Local anesthetic was given subcutaneously to right radial region with Lidocaine 2%. Using a modified Seldinger technique, arterial access was obtained via the right radial artery, a 6Fr sheath was inserted.. Left Coronary Artery selective angiography was performed in multiple views using a 5 Fr. JL3.5 catheter. Right Coronary Artery selective angiography was then performed in multiple views using a 5 Fr. JR 4 catheterThe images were reviewed and options discussed. A decision was then made to proceed with an Intervention, IVUS or other adjunct procedure. XB3 Guide catheter was inserted and engaged into the LCA. FFR Guide wire was advanced to the LAD. The FFR/iFR wire was inserted. Pressures and FFR/iFR were then recorded. iFR measurements were performed. iFR Ratio: 0.94 iFR Ratio: 0.92 iFR Ratio: 0.93. The FFR/iFR wire was then removed. JR4 Guide catheter was inserted and engaged into the RCA. IFR Guide wire was repositioned to the RCA Angiogram performed pre balloon dilatation. 2.5x15 Euphora Balloon catheter was inserted. Balloon catheter was advanced across lesion in the right coronary, mid. PTCA balloon inflated at 10 atms for 16 secs. PTCA balloon inflated at 10 atms for 12 secs. PTCA balloon inflated at 14 atms for 20 secs. 3x22 [place] Drug Eluting stent was inserted. Drug Eluting stent was advanced across the lesion in the right coronary, mid. Angiogram performed post stent deployment. Angiogram performed post stent deployment. The arterial sheath was pulled and a TR Band was applied for hemostasis. 10cc of air CORONARY ANGIOGRAPHY DOMINANCE: Right Dominant LEFT MAIN: Mild luminal irregularities LEFT ANTERIOR DESCENDING ARTERY: OSTIAL LAD: 60-70 % Stenosis. iFR was 0.93 suggestive of stenosis that can be treated medically a this time CIRCUMFLEX ARTERY: PROX CIRC: 50 % Stenosis RIGHT CORONARY ARTERY: MID RCA: 90 % Stenosis(instent restenosis) RT PLV: 60-70% Stenosis (small vessel) INTERVENTION INFORMATION LESION SITE: RCA (Mid) Lesion Complexity: High/C, chronic total occlusion: No, lesion at bifurcation: Yes, thrombus present: No, lesion length: 22 mm, culprit lesion: Yes, Previously treated lesion: Yes, In-stent restenosis: Yes Pre Stenosis: 90 % Pre intervention DEMOND flow: 3 PROCEDURE: Drug Eluting Stent with pre dilatation. Post Stenosis: 0 % Post intervention DEMOND flow: 3 Lesion Devices: Truly Wireless Coronary FFR Wire Cordis 6 Fr JR4 100cm Guide Catheter Medtronic SC EUPHORA RX 2.5x15 BALLOON Medtronic 3.0 x 22 DEJA FRONTIER EMPERATRIZ LESION SITE: LAD (Ostial) Lesion Devices: Cordis 6 Fr XB3.0 100cm Guide Catheter Truly Wireless Coronary FFR Wire COMPLICATIONS No Complications PROCEDURE MEDICATIONS Fentanyl 50 mcg IV Versed 1 mg IV Oxygen: 2 L/min via nasal cannula Brilinta 180 mg PO 12/28/2024 11:59:49 Baby Aspirin (81mg) 1 Tabs PO @ 12/28/2024 12:00:00 Heparin given IA 12/28/2024 11:24:36 Verapamil 2.5mg, Ntg 100mcgs, 3000 units of Heparin given IA 12/28/2024 11:24:36 SUMMARY OF HEMODYNAMIC DATA Time AIR REST ECG 11:07:16 AO 175/101 (132) SA 11:26:23 AO 196/97 (140) 11:50:27 Signed By Jazmin Fernandez MD On 02/11/2025 10:23:05 Jazmin Fernandez MD
== END 2024-12-29 15:36 | disposition home or self-care (01) | DRG 282 ==
LOC: ED 09:34 → PCU 10:44
PROVIDERS: Emergency Medicine; Specialist; Admitting Provider Internal Medicine; Emergency Provider Emergency Medicine; PCP Internal Medicine; Visit Provider Internal Medicine
DX: I21.4 Non-ST elevation (NSTEMI) myocardial infarction (principal); I16.0 Hypertensive urgency; J44.9 Chronic obstructive pulmonary disease, unspecified; I10 Essential (primary) hypertension; E78.2 Mixed hyperlipidemia; F17.210 Nicotine dependence, cigarettes, uncomplicated; I25.10 Atherosclerotic heart disease of native coronary artery without angina pectoris; M54.9 Dorsalgia, unspecified; I25.2 Old myocardial infarction; M25.552 Pain in left hip; F12.90 Cannabis use, unspecified, uncomplicated; Z79.51 Long term (current) use of inhaled steroids; Z53.29 Procedure and treatment not carried out because of patient's decision for other reasons; Z79.02 Long term (current) use of antithrombotics/antiplatelets; Z79.82 Long term (current) use of aspirin; G89.29 Other chronic pain; Z90.710 Acquired absence of both cervix and uterus; Z71.6 Tobacco abuse counseling; Z95.5 Presence of coronary angioplasty implant and graft; Z82.49 Family history of ischemic heart disease and other diseases of the circulatory system; Z86.73 Personal history of transient ischemic attack (TIA), and cerebral infarction without residual deficits; Z95.810 Presence of automatic (implantable) cardiac defibrillator; Z87.81 Personal history of (healed) traumatic fracture; Z79.899 Other long term (current) drug therapy; M81.0 Age-related osteoporosis without current pathological fracture
CPT/HCPCS: 71046; 80048; 80053; 80076; 83690; 83880; 84443; 84484; 85025; 85347; 85379; 85610; 85730; 92928; 93005; 93306; 93454; 93571; 94640; 94668; 99152; 99153; 99252; 99285; Q9967; A4216; C1725; C1769; C1874; C1887; C1894; C9600; G0463; J1327

== ENCOUNTER → 2025-01-03 | Outpatient (CLI) | payer MEDICARE, OTHER, SELFPAY ==
[2024-11-07 11:54] VITALS: BMI 29.2
--- NOTE | 2025-01-03 11:04 | PCM.CR.HP2 ---
CR - History & Physical General Arrival date:: 01/03/25 Arrival time:: 11:04 Date of Referral:: 12/31/24 Date of CR Evaluation:: 01/03/25 Referring Physician: Dr. Blackburn Primary Diagnosis: PCI w/stent History of Present Cardiac Event Onset Date PTCA or coronary stenting:: Yes (12/29/24) Medications Ambulatory Orders ?Medication ?Instructions ?Recorded clopidogrel 75 mg tablet (Plavix) 75 mg PO DAILY antiplatelet #90 04/29/23 tabs hydrochlorothiazide 25 mg tablet 25 mg PO DAILY BP #90 tabs 04/29/23 losartan 100 mg tablet 100 mg PO DAILY dose increase (BP) 04/29/23 #90 tabs metoprolol tartrate 25 mg tablet 25 mg PO BID BP #180 tabs 04/29/23 nitroglycerin 0.4 mg sublingual 0.4 mg sublingual Q5M PRN Chest 04/29/23 tablet Pain #25 tabs amlodipine 10 mg tablet 10 mg PO DAILY BP #90 tabs 05/30/23 aspirin 81 mg tablet,delayed 81 mg PO DAILY@0800 90 days #90 11/11/23 release tabs atorvastatin 80 mg tablet 80 mg PO QHS 90 days #90 tabs 11/11/23 denosumab 60 mg/mL subcutaneous 60 mg subcut [id number] #1 mL 12/12/23 syringe (Prolia) albuterol sulfate 90 mcg/actuation 1 - 2 puff inhalation Q6H PRN PRN 02/29/24 aerosol inhaler Sob &/Or Wheezing #8.5 grams fluticasone fur. 100 mcg-umeclid 1 inh inhalation Q24H 3 months #60 09/25/24 62.5 mcg-vilant 25 mcg ea inhalat.powder (Trelegy Ellipta) pramipexole 1.5 mg tablet 1.5 mg PO QHS #30 tabs 10/02/24 Allergies Allergies No Known Allergies Allergy (Verified 12/28/24 05:24) Sleep Disorder Evaluation Hx of Sleep Apnea: No Do you snore loudly (louder than talking or can be heard through closed doors)?: Yes Do you often feel tired/ fatigued/ sleepy during daytime?: No Has anyone observed you stop breathing during sleep?: No History of Hypertension (for STOP score): Yes STOP Results: Positive Advanced Directives Advanced Directives Do you have a Healthcare Power of Coil Inspector?: No Living Will: No Advance Directives Information Provided: No Advance Directives on File: No DNR Order?:: No Past Medical History Covid-19 Screening Physicial Symptoms Other Clinical Concerns Exposure Risk Pertinent Comorbidities 65 years or older:: Yes Has a chronic lung disease or moderate to severe asthma:: Yes Has a serious heart condition:: Yes Past Medical Illness Past Medical History (Updated 12/29/24 @ 09:[address] Alonzo Blackburn MD) Carotid artery disease I77.9 Urinary frequency R35.0 History of TIA (transient ischemic attack) Z86.73 Nausea R11.0 Chronic left hip pain M25.552, G89.29 Left shoulder pain M25.512 Anxiety F41.9 Smoker F17.200 Myocardial infarct I21.9 x3, most recent 2019 Health care maintenance Z00.00 Colon cancer screening Z12.11 Flu vaccine need Z23 Patient noncompliance Z91.199 Tobacco abuse Z72.0 Anxiety and depression F41.9, F32.A Left hand pain M79.642 History of fracture of clavicle Z87.81 Fracture T14.8XXA Depression F32.A Chronic pain G89.29 COPD (chronic obstructive pulmonary disease) J44.9 Osteoporosis M81.0 Pre-op chest exam Z01.811 Hyperlipidemia E78.5 Atherosclerotic heart disease of [place] coronary artery without angina pectoris I25.10 Segmented LV systolic dysfunction- Mild LVEF: by LV gram 55 % Single vessel CAD of the RCA Non obstructive coronary arteries Acute occlusion of proximal RCA upstream from stent. Successful PTCA/EMPERATRIZ of occluded proximal RCA, upstream from previous stent, utilizing a 3.0 x 16 promus Synergy, post dilated with a 3.0, 3.25 and 3.5 x 12 NC Balloon. 100%-->0%, no dissection. Pt had less than optimal stent deployment at end of first case despite 3.25 NC Balloon. Approximately 5 minutes after 1st procedure was completed and before pt had left laboratory sampler table, pt had recurrent severe SSCP with new ST elevation on monitor. Emergent reprep and relook showed acute stent thrombosis. Emergent PTCA with 2.0 x 12 balloon, followed by [place] catheter, followed by IVUS performed. Pt given Integrillin bolus and gtt, followed by post stent dilatation with a 3.0 x 10 Angiosculpt, followed by a 3.5 x 12 NC balloon. Repeat IVUS confirmed appropriate stent deployment and no resolution of scar tissue protruding through stent struts. ST elevation myocardial infarction (STEMI) I21.3 Hypertension I10 Past Surgical History Past Surgical History (Updated 12/31/24 @ 09:51 by Darcy Mejia) History of tonsillectomy Z90.89 History of oophorectomy History of hysterectomy Z90.710 History of shoulder surgery Z98.890 Stented coronary artery (12/29/24) Z95.5 Acute occlusion of proximal RCA upstream from stent. Successful PTCA/EMPERATRIZ of occluded proximal RCA, upstream from previous stent, utilizing a 3.0 x 16 promus Synergy, post dilated with a 3.0, 3.25 and 3.5 x 12 NC Balloon. 100%-->0%, no dissection. Pt had less than optimal stent deployment at end of first case despite 3.25 NC Balloon. Approximately 5 minutes after 1st procedure was completed and before pt had left laboratory sampler table, pt had recurrent severe SSCP with new ST elevation on monitor. Emergent reprep and relook showed acute stent thrombosis. Emergent PTCA with 2.0 x 12 balloon, followed by [place] catheter, followed by IVUS performed. Pt given Integrillin bolus and gtt, followed by post stent dilatation with a 3.0 x 10 Angiosculpt, followed by a 3.5 x 12 NC balloon. Repeat IVUS confirmed appropriate stent deployment and no resolution of scar tissue protruding through stent struts. Non-ST elevated myocardial infarction (non-STEMI): 12/29/2024 Patient had ECG changes consistent with a non-X7 elevation infarct. She underwent stenting of the severely diseased right coronary artery and IFR was negative of the LAD lesion. Surgical History: hysterectomy and - Family History Summary Family History Father , 52 Myocardial infarction Heart disease Hyperlipemia Brother Myocardial infarction CAD (coronary artery disease) CABG and stents Mother Arthritis Depression Osteoporosis Seizures Son Suicide Depression Other Cancer Social History Smoking History Smoking Status: Current every day smoker Years Smokin Packs Smoked per Day: 1 (Pt was smoking 2 packs a day and is down to 1.) Alcohol Use Alcohol Usage: No Occupation Occupation (List type of work in comments):: Retired Social Environment Status Marital Status: Current Living Arrangements Living Environment:: Spouse Children How many children do you have?: 4 Do any of your children live nearby?: Yes Safety Do you feel safe in your surroundings?: Yes Assistance Do you need any assistance at home?: no Review of Systems Review of Systems Hints Review of Present Symptoms: Reports Shortness of Breath with Exertion, PVD, Angina, Fatigue, Appetite - Normal and Appetite - Special Diet; Denies Shortness of Breath at Rest, Operative Discomfort, Wound Healing, Dizziness/Lightheadedness, Heart Arrhythmia/Irregularities, Sleep - Normal or Sexual Changes Pain Is Patient Pain Free?: No Pain Location: upper extremity and lower extremity Pain Level: 11/17 Risk Factor Assessment Chief Complaint Chief Complaint: PCI w/ stent Vital Signs Pulse Ox: 96 Blood Pressure: 160/82 Pulse Pulse Rate: 95 Pulse Rhythm: Regular Hypertension How long have you been treated?: 50 Blood Pressure Sitting - Right Arm: 160/82 Stress Stress: Home/Family Obesity Height: 5 ft 4 in Weight:: 171 lb Weight in Pounds: 171.0 lbs Body Mass Index (BMI): 29.3 Nutritional Referral for Obesity: No Physical Inactivity Physical Inactivity: None Risk Stratification Risk Guidelines: Moderate Risk: Risk Factor for Diabetes, Risk Factor for Obesity and Risk Factor for Sedentary Lifestyle and Highest Risk: Risk Factor for Smoking, Risk Factor for Dyslipidemia, Risk Factor for Hypertension and Risk Factor for Depression For Smoking Smoking Risk Guidelines For Dyslipidemia Dyslipidemia Risk Guidelines For Diabetes Mellitus Diabetes Risk Guidelines For Obesity/Overweight Obesity/Overweight Risk Guidelines For Hypertension Hypertension Risk Guidelines For Sedentary Lifestyle Sedentary Lifestyle Risk Guidelines For Depression Depression Risk Guidelines Family History Family History Father , 52 Myocardial infarction Heart disease Hyperlipemia Brother Myocardial infarction CAD (coronary artery disease) CABG and stents Mother Arthritis Depression Osteoporosis Seizures Son Suicide Depression Other Cancer Motivation Motivation to Participate On a scale of 1 to 10, how prepared are you to commit to attending program?: 6 What do you see as barriers to successfully being able to complete the program?: nothing What do you see as the benefits of succesfully completing the program? In other words, what do you hope to get out of participating in the program?: more energy, longer life Are there issues you are dealing with that will interfere with completing the program?: no Do you have a spouse or signficant other, family or friends who will help support you to complete the program?: yes
--- NOTE | 2025-01-03 11:10 | CR.ITP_ITS ---
Diagnosis General Information Admitting Diagnosis: PCI w/stent Personal Learning Style:: Audio/Visual Barriers to Learning: No Barriers Stage of change r/t lifestyle modifications:: Contemplation Gave educational material for:: Treating Heart Disease, How The Heart Works, What it means to have Heart Disease, How Coronary Artery Disease is Diagnosed, Heart Procedures, What Heart Medications Do, Risk Factors & Modifications, L iving an Active Life, Nutrition, Emotions & Heart Disease, Stress Management & Relaxation and Sleep Disorders & Heart Disease Education/Goals Cardiac Rehabilitation Goals Personal Goals: Initial Assessment: Quit smoking (participate in smoking cessation, Improve energy level, Improve muscle strength and endurance, Improve diet and eating habits (eat healthier) and Control risk factors (learn risk factor modification) Scale for measuring improvement of personal goals Diagnosis & Disease Process Outcomes/Goals: Pt IDs own risk factors & lifestyle modifications by Session 10, Verbalizes symptoms of angina & response by session 3., Pt independently manages and Other Additional Outcomes/Goals: Plan/Interventions: Assist Pt to ID & engage in lifestyle modification to reduce CVD risk, Instruct on individual risk factors, Review symptoms of angina & emergency actions, Review secondary diagnosis & identify educational needs. and Other see comment 30 day Reassessments:: Not Met 30 day Reassessments:: Not Met 30 day Reassessments:: Not Met 30 day Reassessments:: Not Met Final Reassessments:: Not Met Safety Referral to Physical Therapy: No Referral to [facility] Case Management: No Fall Risk Assessed:: Yes Assistive Devices:: None Exercise - Initial Assessment Visit Date of Eval: 01/03/25 (initial eval ) Mets: Pre-: >3 METS for 30 minutes by discharge, >5 METS for 30 minutes by discharge, >7 METS for 30 minutes by discharge and Unable to meet goal due to: (see comment below) Physician Prescribed Exercise Modalities: Treadmill, Rower, Schwinn Airdyne AD-7, SciFit Stepper, SciFit Pro- II Ergometer and SciFit Lateral Tailor Apprentice Frequency: 3x/week for 12 weeks [36 sessions] Intensity: 60-80% of age predicted maximum heart rate reserve Duration: 30 - 45 minutes Current METSs:: 3 Target Heart Rate:: 92-115 Resting Blood Pressure: 160/82 EKG Type: SR with PAC's Outcomes & Goals Goals:: Verbalizes understanding of THR, RPE & goal METS by session 6, Documents in home exercise log/reports 30 min aerobic 5 day/wk by DC, Demonstrates accurate pulse taking by DC and Other additional outcome/goals: see below Intervention & Plan Exercise Program Goals: Instruct on personal THR & RPE, Instruct on MET level & personal MET goal, Show patient to take own pulse /validate performance until accurate, Instruct on home exercise and Other additional plan/int Physical Activity Home Exercise Physical Activity - Home Exercise: Safe Exercise, Warm-up, Self-monitoring, Cool-Down, Home Exercise > 30 min Daily and Sitting Time <3 hours/daily Outcomes & Goals Outcomes/Goals: Demonstrates correct Warm-up/exercise Cool-Down (S3) if = 2.5 METs, Verbalizes symptoms of exercise intolerance by Session 3 (S3), Demonstrate safe equipment use (S3) & follows exercise prescrition (6) and Other: See below Intervention & Plan Plan/Intervention: Instruct warm-up & cool-down if exercising at > 2 METs, Instruct on symptoms of exercise intolerance & actions to take, Instruct & monitor on saf, Assess intial functional capacity & safety risk and Other See below Nutrition - Initial Assessment Program Goals Nutrition Program Goals Patient has diagnosis of Hyperlipidemia (ICD E78)?: Yes Visit Date of Eval: 01/03/25 (initial eval ) Cholesterol/Lipids (Other Core Measures) Determine presence & major risk factors that modify LDL goal: Cigarette smoking, Hypertension or hypertensive medication, Low HDL cholesterol <40 mg/dL*, Family history of premature CHD in Male < 55 years: female <65 yearsFa and Age men > 45 years; women >/= 55 years Outcomes/Goals: Pt IDs own risk factors & lifestyle modifications by Session 10, Verbalizes symptoms of angina & response by session 3., Pt independently manages and Other Additional Outcomes/Goals: Intervention/Plan: Advocate for lipid panel cholesterol medication if applicable, Instruct on personal lipid levels & lipid goals/NCEP guidelines, Instruct on cholesterol and Other additional plan/int Diabetes (Other Core Measures) Diabetes Type: Not Applicable Weight Mgt (Other Care) Height: 5 ft 4 in Weight:: 171 lb BMI: 29.3 Diagnosis Overweight/Obesity BMI> 30% ICD-10 E66: No Diagnosis High BMI/Morbid Obesity BMI> 35% ICD-10 Z68: No Outcomes/Goals: Pt sets, maintains & shows weight loss goal & trend during rehab and Other additional outcomes/goals Intervention/Plan: Instruct on ideal BMI & set weight loss goal w/patient, Assist pt to ID & incorporate diet changes for weight loss by S9, Refer to Structured Weight Loss program as appropriate, Encourage goal of using 250- 300dcal per session for weight loss and Other additional plan/interventions Healthy Eating Habits Will attend diet classes:: Yes Outcomes/Goals:: Consume diet rich in vegs,fruits,whole grain/high fiber,fish,lean meat, Limit sat/trans fats,cholesterol & added salts & sugars and Other additional outcome/goals: Intervention/Plan:: Assess current eating habits and Other Additional plan/interventions Education Gave educational materials for:: Signs & symptoms of hypoglycemia, Signs & sym ptoms of hyperglycemia, Relate diabetes to coronary artery disease and Healthy eating Core - Initial Assessment Visit Date of Eval: 01/03/25 (initial eval ) Medication Compliance Preventative Medication(s):: Aspirin, Clopidogrel/P2Y12 inhibit, Statin/lipid and Beta marty H/O mental health issues: depression, anxiety, or addiction?: Yes Doesn?t believe in the benefits of treatment?: No Believes medications are unnecessary or harmful?: No Has a concern about medication side effects?: No Expresses concern over the cost of medications?: No Outcomes/Goals: Verbalizes medications,desired effect & common side effects @ DC, Pt self-reports following medication regimen, Keeps card in wallet w/medications listed by DC and Other additional outcome/goals: Interventions/plans: Instruct on medication effects & side effects, Review medication list w/patient every two weeks, Instruct importance of taking meds as ordered & assist problem solving and Other additional Tobacco Use Tobacco Use: Cigarettes How many cigarettes do you smoke per day?: 20 Years Smokin Do you use smokeless tobacco?: No Outcomes/Goals: Smoking cessation achieved or maintained by discharge, Identify aids/strategies for achieving smoking cessation by session 6 and Other additional outcome/goals Interventions/plan: Instruct on effects of smoking & provide smoking cessation resource, Assist pt to set quit date & provide encouragement, Assist pt to develop strategies to achieve/maintain quit date, Assist pt w/nicotine replacement & medication for cessation success and Other additional plan/interventions Hypertension Hypertension Diagnosis:: Hypertension ICD-10 I10 Resting Blood Pressure:: 160/82 [place] [employer] Hypertension Guidelines Outcomes/Goals: Able to verbalize/achieve optimal blood pressure <130/80, Incorporates diet changes & exercise for blood pressure control by DC and Other additional outcomes/goals Interventions/plan: Instruct on optimal blood pressure, hypertension & medicatio ns, Instruct on effects of sodium, alcohol, stress, exercise &hypertension and Other additional plan/interventions Tobacco Cessation Referral Smoking Cessation Referral:: No Individual Education/Counseling:: No Education Schedule Given:: Yes Psychosocial - Initial Assess VIsit Date of Eval: 01/03/25 (initial eval) History of previous Mental disease:: Yes History of Emotional Disorders: Anxious and Depression Self-reported stressors: Family Self-reported stressors Other/Comments:: Pt states that the of her child has been the cause of her depression. Target Goals Target Goals Psychosocial Test phq-9 Severity See PHQ-9 Score: 15 Referral to Behavioral Health PS - Interventions: Yes: Attend Stress Management Classes Outcomes/Goals: See list Psychosocial Outcomes/Goals:: ID's personal stressors & 2 strategies to manage stress by discharge and Other Additional outcome/goals: Intervention/Plan: See List Interventions/Plan:: Assess stressors,coping strategies & signs of derpression on admission, Instruct/assist pt to develop coping & personal stress Mgt strategies, Refer to Behavioral Health if appropriate, Refer to Physician if appropriate, Instruct patient to recognize signs & symptoms of depression, Instruct patient to recog and Other additional plan/intervention Comments:: Pt states that she has no intention of harming herself. This is due to the of her child. Offered to help pt contact a counselor and she declined for now. Pt was in counseling in the past. Patient Health Questionnaire PHQ-9 Screening Initial Assessment: 1. Little interest or pleasure in doing things: Nearly every day 2. Feeling down, depressed, or hopeless: Several days 3. Trouble falling or staying asleep, or sleeping too much: Nearly every day 4. Feeling tired or having little energy: Nearly every day 5. Poor appetite or overeating: More than half the days 6. Feeling bad about yourself -- or that you are a failure or have let yourself or your family down: Not at all 7. Trouble concentrating on things, such as reading the newspaper or watching television: More than half the days 8. Moving or speaking so slowly that other people could have noticed. Or the opposite - being so fidgety or restless that you have been moving around a lot more than usual: Not at all 9. Thoughts that you would be better off , or of hurting yourself in some way: Several days How difficult have these problems made it for you to do your work, take care of things at home, or get along with other people?: Very difficult (Pt states that she has no intention of harming herself. This is due to the of her child. Offered to help pt contact a counselor and she declined for now. Pt was in counseling in the past.) Total Score: 15 CRIS-Q SV Test Statements CAD is a disease of the arteries in the heart: False Examples of risk factors for heart disease: True Angina is chest pain or discomfort: True The benefits of resistance training include: True Eating more meat and dairy products: False Anti-platelet medications such as aspirin are important: True The only effective way to manage stress: False An exercise warm-up slowly increases heart rate: I Don't Know Prepared, processed foods usually have high sodium: True Depression is common after a heart attack: I Don't Know The statin medications lower cholesterol: True To control blood pressure, lower the amount of sodium: True If someone gets chest discomfort during walking: False Transfats are partially hydrogenated vegetable oils: True Sleep apnea that is not treated increases the risk: False To control cholesterol, one should become a vegetarian: False Someone knows if he/she is exercising at the right level: I Don't Know Diabetes cannot be prevented with exercise & health eating: False Stress is a large risk for heart attack: True A diet that can help lower blood pressure is rich in: True Total Score Total Correct Responses: 17 Self-Efficacy 6-Item Scale Initial Assessment: We would like to know how confident you are in doing certain activities. Please select your confidence level for: Fatigue Select Number: 1 Physical Discomfort or Pain Select Number: 1 Emotional Distress Select Number: 1 Other Symptoms or Health Problems Select Number: 1 Different Tasks and Activities Select Number: 1 Medication Select Number: 5 Total Score:: 1 Nutrition Survey Nutrition Survey Instructions Scoring Instructions Nutrition Survey Initial: Have you lost >10 lbs over the past 2 months without trying?: No Are you following a special diet at home for diabetes, low fat, or low salt?: No Are you interested in meeting with a dietitian for help understanding your diet?: Yes Do you eat less than 3 meals a day?: Yes Do you eat fatty meats (thao, sausage, ribs, etc), fried foods, desserts, large amounts of salad dressings, margarine, butter, or cheese most days?: No Do you have food allergies? [Enter types in comment field]: No Do you eat in restaurants more than 3 times a week?: No Do you season food with salt, seasoning salt, or garlic salt?: Yes Exercise - 30-day Assessment Physician Prescribed Exercise Modalities: Treadmill, Rower, Schwinn Airdyne AD-7, SciFit Stepper, SciFit Pro- II Ergometer and SciFit Lateral Switzer Exercise - 60-day Assessment Physician Prescribed Exercise Modalities: Treadmill, Rower, Schwinn Airdyne AD-7, SciFit Stepper, SciFit Pro- II Ergometer and SciFit Lateral Switzer Exercise - 90-day Assessment Physician Prescribed Exercise Modalities: Treadmill, Rower, Schwinn Airdyne AD-7, SciFit Stepper, SciFit Pro- II Ergometer and SciFit Lateral Switzer Exercise - Final/Discharge Physician Prescribed Exercise Modalities: Treadmill, Rower, Schwinn Airdyne AD-7, SciFit Stepper, SciFit Pro- II Ergometer and SciFit Lateral Tailor Apprentice Frequency: 3x/week for 12 weeks [36 sessions] Intensity: 60-80% of age predicted maximum heart rate reserve Current METSs:: 3 Target Heart Rate:: 92-115 Nutrition - 30-Day Assessment Weight Mgt (Other Care) Height: 5 ft 4 in Weight:: 171 lb BMI: 29.3 Nutrition - 60-Day Assessment Weight Mgt (Other Care) Height: 5 ft 4 in Weight:: 171 lb BMI: 29.3 Core - 30-Day Assessment Tobacco Use Years Smokin Core - Final Assessment Hypertension Resting Blood Pressure:: 160/82 [place] [employer] Hypertension Guidelines Core - 60-Day Assessment Hypertension Resting Blood Pressure:: 160/82 [place] [employer] Hypertension Guidelines Psychosocial - 30-Day Assess Target Goals Target Goals Referral to Behavioral Health PS - Interventions: Yes: Attend Stress Management Classes Psychosocial - 60-Day Assess Target Goals Target Goals Referral to Behavioral Health PS - Interventions: Yes: Attend Stress Management Classes Psychosocial - 90-Day Assess Target Goals Target Goals Referral to Behavioral Health PS - Interventions: Yes: Attend Stress Management Classes Psychosocial - Final Assessmen Target Goals Target Goals Psychosocial Test phq-9 Severity See PHQ-9 Score: 15 Referral to Behavioral Health PS - Interventions: Yes: Attend Stress Management Classes Nutrition - 90-Day Assessment Weight Mgt (Other Care) Height: 5 ft 4 in Weight:: 171 lb BMI: 29.3 Nutrition - Final Assessment Program Goals Patient has diagnosis of Hyperlipidemia (ICD E78)?: Yes Weight Mgt (Other Care) Height: 5 ft 4 in Weight:: 171 lb BMI: 29.3
[2025-01-03 11:26] VITALS: BP 160/82; PULSE 95; O2SAT 96
[2025-01-03 12:01] VITALS: BP 160/82
[2025-01-03 12:13] VITALS: BP 160/82; BMI 29.3
--- OUTSIDE RECORDS SUMMARY | 2025-01-03 21:18 | XMS RPT_ITS | CCD ---
Author Organization [facility] Care Team Providers Care Internet Programmer Name Role Phone Kelly Ma Unavailable Minda Salazar Unavailable Unavailable Gravius, Angela Unavailable Unavailable Unavailable Unavailable Jae Garrett Unavailable Yoli Reyna Unavailable Unavailable Joanne Johns Primary Care Provider [phone] Marlon Bennett Unavailable Minda Salazar Unavailable Unavailable Yoli Reyna Unavailable Unavailable Gravius, Angela Unavailable Unavailable Jenny Colón Unavailable Unavailable Kelly Ma DO Unavailable Jenny Colón LPN Unavailable Unavailable Unavailable Unavailable Kelly Ma DO Primary Care Provider Dr. Leonidas Traore Primary Care Provider Dr. Leonidas Traore Referring Provider Royer GRAHAM, JESSICAC Minda Attending Provider KAILEY Gallegos Attending Provider Dr. Kalen Quiles Attending Provider [phone] Dr. Kalen Quiles Referring Provider Dr. Michael Zheng Attending Provider Dr. Kalen Quiles Other Provider Dr. Leonidas Traore Primary Care Provider Dr. Leonidas Traore Referring Provider [phone] Keshav BONNER PA [place] Attending Provider Dr. Leonidas Traore Attending Provider Dr. Nadja Vizcarra Emergency Provider Gibson, Dr. Hall Admit Provider Gibson, Dr. Hall Attending Provider Gibson, Dr. Hall Other Provider Dr. Dequan Roman Attending Provider MD Braxton Sadler Other Provider Unavailable Dr. Alejandro Desai Other Provider MD Amanda Ugarte Other Provider Unavailable Dr. Birdie Acuna Other Provider [phone] Dr. Marivel Perez Other Provider Dr. Ron Cohne Other Provider [phone] Dr. Ester Doss Other Provider Dr. David Mobley Other Provider Dr. Bj Rene Other Provider MD Nevin Soto Other Provider Dr. Wolf Li Other Provider Dr. Gaby Bangura Other Provider Dr. Alexander Benavides Other Provider [phone] Dr. Carly Ceron Other Provider Dr. Fabian Acuña Other Provider [phone] Dr. Marylin Smith Other Provider Dr. Topher Morse Other Provider [phone] Dr. Dilcia Torres Other Provider Unavailable MD Eyal Beauchamp Other Provider Unavailable Dr. Abhijeet Sky Attending Provider Dr. Abhijeet Sky Other Provider Dr. Guido Denny Other Provider Kelly Ma DO Primary Care Provider JOANNE NEAL Attending Unavailable JOANNE NEAL Referring Unavailable KELLY MA Primary Care Unavailable JOANNE NEAL Attending Unavailable KELLY MA Primary Care Unavailable Leonidas Traore MD Primary Care Provider [phone] LEONIDAS TRAORE Primary Care Unavailable ROXANA GARCIA Referring Unavailable LEONIDAS TRAORE Primary Care Unavailable Eugenie LYNNE, Dr. Carrasquillo Primary Care Provider Eugenie LYNNE, Dr. Carrasquillo Attending Provider [phone] Eugenie LYNNE, Dr. Carrasquillo Referring Provider [phone] Wolf Unger Attending Provider [phone] Felix LYNNE, Dr. Wilson Attending Provider Felix LYNNE, Dr. Wilson Referring Provider Birdie White Attending Provider [phone] Eugenie LYNNE, Dr. Carrasquillo Primary Care Provider Eugenie LYNNE, Dr. Carrasquillo Referring Provider [phone] Wolf Unger Attending Provider [phone] Felix LYNNE, Dr. Wilson Attending Provider Felix LYNNE, Dr. Wilson Referring Provider Birdie White Attending Provider [phone] Irish LINOTYPER-C, Bárbara Attending Provider Dr. Gonzalo Hurst DO Emergency Provider Solo LYNNE, Dr. Membreno Admit Provider Solo LYNNE, Dr. Membreno Attending Provider Alexey LYNNE, Dr. Rosado Other Provider Solo LYNNE, Dr. Membreno Other Provider Alexey LYNNE, Dr. Rosado Attending Provider Eugenie LYNNE, Dr. Carrasquillo Primary Care Provider Eugenie LYNNE, Dr. Carrasquillo Referring Provider [phone] Jim LYNNE, Dr. Jimenez Attending Provider Oleghe, Efewongbe Primary Care Unavailable Temi Banda Admitting Unavailable Temi Banda Consulting Unavailable Alonzo Blackburn Attending Unavailable Oleghe, Efewongbe Primary Care Unavailable Oleghe, Efewongbe Attending Unavailable Oleghe, Efewongbe Primary Care Unavailable Felix, Katie Referring Unavailable Felix Katie Attending Unavailable Oleghe, Efewongbe Primary Care Unavailable Alonzo Blackburn Consulting Unavailable Temi Banda Attending Unavailable Temi Banda Admitting Unavailable Oleghe, Efewongbe Primary Care Unavailable Tony Fernandez Attending Unavailabl e Oleghe, Efewongbe Primary Care Unavailable Alonzo Blackburn Attending Unavailable Oleghe, Efewongbe Primary Care Unavailable Oleghe, Efewongbe Referring Unavailable Oleghe, Efewongbe Attending Unavailable Oleghe, Efewongbe Primary Care Unavailable Oleghe, Efewongbe Referring Unavailable Wolf Unger Attending Unavailable Oleghe, Efewongbe Primary Care Unavailable Oleghe, Efewongbe Referring Unavailable Birdie Canada Attending Unavailable Oleghe, Efewongbe Primary Care Unavailable Oleghe, Efewongbe Referring Unavailable Oleghe, Efewongbe Attending Unavailable Oleghe, Efewongbe Primary Care Unavailable Oleghe, Efewongbe Referring Unavailable Nataliya Ascencio Attending Unavailable Oleghe, Efewongbe Primary Care Unavailable Irish LINOTYPER, Bárbara Attending Unavailable Alonzo Blackburn Consulting Unavailable Temi Banda Attending Unavailable Dr. Alonzo Blackburn MD Referring Provider Edilia Abdi Attending Provider [phone] Medications Current Medications Medication Drug Class(es) Dates Sig (Normalized) Sig (Original) acetaminophen 500 mg oral tablet (12 sources) Start: 11-30-2019 End: 12-28-2019 take 2 [...] Mild Pain (1-3)/Temp > 100.7 F September 29, 2017 12:00am February 08, 2019 3:33pm Start: 09-29-2017 End: 02-08-2019 take 650 mg [...] November 10, 2023 12:00am Start: 06-28-2019 End: 12-28-2024 Albuterol Sulfate 90 mcg/act uation HFA aerosol inhaler Discontinued 1 - 2 NMA INHALATION EVERY 6 HOURS NEEDED as needed for Sob &/Or Wheezing 8.August 08, 2023 6:59pm February 29, 2024 4:57pm Start: 06-28-2019 End: 08-08-2023 take 1 puff(s) by inhalation every six hours as needed Albuterol Sulfate Discontinued 1 - 2 PUFF INHALATION EVERY 6 HOURS NEEDED 8.February 28, 2023 11:43am August 08, 2023 7:00pm ALPRAZolam 0.25 mg disintegrating oral tablet (1 source) Benzodiazepine Start: 11-30-2019 ALPRAZolam (NIRAVAM) dissolvable tablet 0.25 mg amLODIPine 10 mg oral tablet (20 sources) Dihydropyridine Calcium Channel Lorraine Start: 12-14-2021 End: 01-03-2025 take 1 tablet by mouth once daily Amlodipine 10 mg tablet Active 10 mg PO DAILY January 03, 2025 1:27pm Start: 11-14-2020 End: 12-14-2021 take 1 tablet by mouth once daily Amlodipine 5 mg tablet Discontinued 0 .ROUTE .COMPLEX November 06, 2021 9:12am December 14, 2021 3:09pm TAKE 1 TABLET BY MOUTH EVERY DAY Start: 10-30-2020 End: 11-14-2020 take 1 tablet by mouth once daily Amlodipine 10 mg tablet Discontinued 10 mg PO DAILY October 30, 2020 2:00pm November 14, 2020 9:08am Start: 09-04-2020 End: 10-30-2020 take 2 tablets by mouth once daily Amlodipine (Norvasc) 5 mg tablet Discontinued 10 mg PO DAILY September 04, 2020 3:51pm October 30, 2020 2:01pm Start: 07-23-2020 End: 09-04-2020 take 1 tablet by mouth once daily Amlodipine (Norvasc) 5 mg tablet Discontinued 5 mg PO DAILY July 23, 2020 1:00am September 04, 2020 3:52pm Start: 09-28-2017 End: 02-08-2019 take 1 tablet by mouth once daily Amlodipine 10 MG tablet Discontinued 10 mg PO DAILY September 28, 2017 12:00am February 08, 2019 3:33pm aspirin 81 mg delayed release oral tablet (20 sources) Platelet Aggregation Inhibitor, Nonsteroidal Anti-inflammatory Drug Start: 01-12-2019 End: 11-11-2023 take 1 tablet by mouth once daily Aspirin 81 MG tablet Active 81 mg PO DAILY@0800 90 November 11, 2023 4:13pm Start: 04-12-2012 End: 02-08-2019 take 1 tablet by mouth once daily Aspirin 81 MG tablet,chewable Discontinued 81 mg PO DAILY@0800 January 10, 2019 4:45am February 08, 2019 3:20pm Comment on above: Take 1 tablet by mateus th once daily. benzonatate 100 mg oral capsule (11 sources) Non-narcotic Antitussive Start: take 1 capsule [...] as needed for cough July 14, 2023 1:00am October 31, 2023 10:23am Start: 07-14-2023 End: 10-31-2023 take 200 mg [...] Take 1 tablet by mateus twice daily. clopidogrel 75 mg oral tablet (20 sources) P2Y12 Platelet Inhibitor Start: 04-12-2012 End: 01-03-2025 take 1 tablet by mouth once daily Clopidogrel (Plavix) 75 mg tablet Active 75 mg PO DAILY January 03, 2025 1:27pm Comment on above: Take 1 tablet by mateus th once daily. cyclobenzaprine hydrochloride 10 mg oral tablet (5 sources) Muscle Relaxant take 1 tablet by mouth three times daily as needed for muscle spasms cyclobenzaprine (Flexeril) 10 MG tablet Take 10 mg by mouth 3 times daily as needed for muscle spasms. 0 Active 1 ml denosumab 60 mg/ml prefilled syringe (5 sources) RANK Ligand Inhibitor Start: 12-12-2023 Denosumab (Prolia) 60 mg/mL syringe Active 60 mg SC every 6 months December 12, 2023 12:00am 1 ml diphenhydrAMINE hydrochloride 50 mg/ml cartridge [...] 11-30-2019 fentaNYL (SUBL IMAZE) injection 50 mcg Hmvnvdmzmlm-Dfsgmbzod-Ssejmu er (14 sources) Anticholinergic, Corticosteroid, beta2-Adrenergic Agonist Start: 09-25-2024 Xsfbjrotxpa-Omwmtzybm-Fcjvzf er (Trelegy Ellipta) 100-62.5-25 mcg blister with device Active 1 NMA INHALATION Q24H 60 90 September 25, 2024 8:03pm Start: 09-12-2024 End: 09-25-2024 Nanjrmovviv-Dwhrnxeiz-Thvdhr er (Trelegy Ellipta) 100-62.5-25 mcg blister with device Discontinued 1 NMA INHALATION Q24H September 12, 2024 4:54pm September 25, 2024 8:04pm Start: 09-12-2024 Fluticasone-Um eclidin-Vilanter (Trelegy Ellipta) 100-62.5-25 mcg blister with device Active 1 NMA INHALATION Q24H September 12, 2024 3:54pm Start: 08-08-2024 End: 09-12-2024 Kfnblrsrkif-Prszmnsrp-Rwtgri er (Trelegy Ellipta) 100-62.5-25 mcg blister with device Discontinued 1 NMA INHALATION Q24H 60 August 08, 2024 1:00am September 12, 2024 4:54pm Start: 08-08-2024 End: 09-12-2024 Mgvepjfpkxf-Nnazambum-Dxbqtd er (Trelegy Ellipta) 100-62.5-25 mcg blister with device Discontinued 1 NMA INHALATION Q24H 60 August 08, 2024 12:00am September 12, 2024 3:54pm 1 ml hydrALAZINE hydrochloride 20 mg/ml injection (1 source) Arteriolar Vasodilator Start: 11-30-2019 hydrALAZINE (APRESOLINE) injection 5 mg hydroCHLOROthiazide 25 mg oral tablet (20 sources) Thiazide Diuretic Start: 09-23-2020 End: 01-03-2025 take 1 tablet by mouth once daily Hydrochlorothiazide 25 mg tablet Active 25 mg PO DAILY 90 January 03, 2025 1:27pm Start: 09-29-2017 End: 02-08-2019 take 1 tablet by mouth once daily Hydrochlorothiazide 12.5 MG tablet Discontinued 12.5 mg PO DAILY January 10, 2019 4:45am February 08, 2019 3:20pm 1 ml HYDROmorphone hydrochloride 1 mg/ml cartridge [...] on above: Take 5 mg by mouth. losartan potassium 100 mg oral tablet (20 sources) Angiotensin 2 Receptor Lorraine Start: 05-24-2019 End: 01-03-2025 take 1 tablet by mouth once daily Losartan 100 mg tablet Active 100 mg PO DAILY 90 January 03, 2025 1:27pm Start: 03-22-2019 End: 05-24-2019 take 2 tablets by mouth once daily Losartan 50 mg tablet Discontinued 100 mg PO DAILY March 22, 2019 3:03pm May 24, 2019 3:18pm Start: 03-22-2019 End: 05-24-2019 take 100 mg by mouth once daily Losartan Discontinued 100 MG PO DAILY March 22, 2019 3:03pm May 24, 2019 3:18pm Start: 02-08-2019 End: 03-22-2019 take 1 tablet by mouth once daily Losartan 50 mg tablet Discontinued 50 mg PO DAILY February 08, 2019 3:48pm March 22, 2019 3:03pm Start: 01-11-2019 End: 02-08-2019 take 1 tablet by mouth once daily Losartan 25 MG tablet Discontinued 25 mg PO DAILY January 11, 2019 12:00am February 08, 2019 3:49pm Titrate up the dose to achieve adequate blood pressure control. Start: 09-29-2017 End: 01-11-2019 take 1 tablet by mouth once daily Losartan 100 MG tablet Discontinued 100 mg PO DAILY January 10, 2019 4:45am January 11, 2019 8:25am Start: 02-05-2015 End: 09-29-2017 take 4 tablets by mouth once daily Losartan 25 MG tablet Discontinued 100 mg PO DAILY February 05, 2015 12:00am September 29, 2017 3:38pm Start: 02-05-2015 End: 09-29-2017 take 100 mg by mouth once daily Losartan Discontinued 100 MG PO DAILY February 05, 2015 12:00am September 29, 2017 3:38pm Comment on above: Take 50 mg by mouth once daily. 1 ml meperidine hydrochloride 25 mg/ml cartridge (1 source) Opioid Agonist Start: 11-30-19 meperidine (DEMEROL) injection 12.5 mg metoprolol tartrate 25 mg oral tablet (20 sources) beta-Adrenergic Lorraine Start: 01-12-20 End: 01-04-20 take 1 tablet by mouth twice daily Metoprolol Tartrate 25 mg tablet Active 25 mg PO TWICE A DAY 180 January 03, 2025 1:27pm 2 ml midazolam 1 mg/ml injection (1 source) Benzodiazepine Start: 11-30-19 midazolam (VERSED) injection 2 mg nitroglycerin 0.4 mg sublingual tablet (20 sources) Nitrate Vasodilator Start: 04-12-20 End: 01-04-20 Nitroglycerin 0.4 mg tablet, sublingual Active 0.4 mg SL Q5M as needed for Chest Pain January 03, 2025 1:27pm Comment on above: Dissolve 1 tablet un daniel the tongue every 5 minutes as needed for Chest Pain. 2 ml ondansetron 2 mg/ml injection (1 source) Serotonin-3 Receptor Antagonist Start: 11-30-19 End: 11-30-19 ondansetron (ZOFRAN) injection 4 mg oxyCODONE hydrochloride 5 mg oral tablet (2 sources) Opioid Agonist Start: 11-30-19 End: 12-07-19 take 1 tablet by mouth every six [...] pantoprazole 40 mg delayed release oral tablet (9 sources) Proton Pump Inhibitor Start: 01-03-2025 take 1 tablet by mouth once daily Pantoprazole 40 mg tablet,delayed release (DR/EC) Active 40 mg PO daily January 03, 2025 12:00am Start: 12-12-2023 End: 12-28-2024 take 1 tablet by mouth once daily Pantoprazole 40 mg tablet,delayed release (DR/EC) Discontinued 40 mg PO DAILY December 12, 2023 12:00am December 28, 2024 5:27am pravastatin sodium 80 mg oral tablet (4 sources) HMG-CoA Reductase Inhibitor Start: 04-12-2012 End: 11-29-2019 take 1 tablet by mouth once daily pravastatin 80 mg tablet Take 1 tablet by mouth once daily. 0 04/12/2012 Active Comment on above: Take 1 tablet by mateus once daily. rosuvastatin calcium 10 mg oral tablet (2 sources) HMG-CoA Reductase Inhibitor Start: 02-24-2016 take 1 tablet by mouth once daily rosuvastatin (CRESTOR) 10 MG tablet Indications: Coronary artery disease involving [place] coronary artery of [place] heart without angina pectoris Take 1 tablet by mouth daily 90 tablet 3 02/24/2016 Active 3 ml sodium chloride 9 mg/ml injection (2 sources) Start: 11-30-2019 sodium chlorid e flush 0.9 % injection 10 mL Completed/Discontinued [...] / oxyCODONE hydrochloride 5 mg oral tablet (20 sources) Opioid Agonist Start: 12-10-2019 End: 07-23-2020 Oxycodone-Acetamino phen (Percocet) 5-325 mg tablet Discontinued 1 {tbl} PO EVERY 6 HOURS as needed December 10, 2019 12:00am July 23, 2020 1:58pm Start: 11-12-2019 End: 11-14-2019 Oxycodone-Acetaminophen 1 TA BLET tablet Discontinued 1 - 2 {tbl} PO EVERY 6 HOURS NEEDED as needed for Pain 06 11November 12, 2019 November 13, 2019 12:00am November 14, 2019 12:02am Start: 11-12-2019 End: 11-14-2019 take 1 tablet by mouth every six hours as needed Oxycodone-Acetaminophen Discontinued 1 - 2 TABLET PO EVERY 6 HOURS NEEDED 06 11November 12, 2019 November 14, 2019 12:02am atorvastatin 80 mg oral tablet (20 sources) HMG-CoA Reductase Inhibitor Start: 01-11-2019 End: 01-03-2025 take 1 tablet by mouth at bedtime Atorvastatin 80 mg tablet Discontinued 80 mg PO AT BEDTIME 90 April 29, 2023 4:51pm November 11, 2023 4:14pm Start: 09-29-2017 End: 01-11-2019 take 1 tablet by mouth once daily Atorvastatin 20 MG tablet Discontinued 20 mg PO DAILY January 10, 2019 4:45am January 11, 2019 8:25am atropine sulfate 0.025 mg / diphenoxylate hydrochloride 2.5 mg oral tablet (8 sources) Anticholinergic, Cholinergic Muscarinic Antagonist, Antidiarrheal Start: 05-08-2019 take 1 tablet by mouth four times daily as needed Lomotil 2.5-0.025 MG Oral Tablet 1 (one) Tablet qid/prn for 0 days Quantity: 60 {Tablet} Refills: 0 Ordered: 20-Jun-2020 Wade Kelly Wade YOUSIF Kelly Start : 08-May-2019 Active Comments: sixty. oarrs maricarmen and callani to [facility] 05/08/19. Comment on above: sixty. oarrs ok and caleld to [facility] 05/08/19. azithromycin 250 mg oral tablet (20 sources) Macrolide Antimicrobial Start: 07-14-2023 End: 10-31-2023 take 2-5 tablets by mouth once daily Azithromycin 250 mg tablet Discontinued 0 PO .COMPLEX 6 July 14, 2023 1:00am October 31, 2023 10:22am take 500 mg today (day 1), then 250 mg for 4 days (days 2-5) PO Start: 04-29-2022 End: 04-11-2023 Azithromycin 250 mg tablet D iscontinued 250 mg PO daily April 29, 2022 12:00am April 11, 2023 1:09pm 2 tablets today, then 1 tablet daily on days 2 through 5 12 hr buPROPion hydrochloride 100 mg extended release oral tablet (8 sources) Aminoketone Start: 04-11-2023 End: 10-31-2023 take 1 tablet by mouth twice daily Bupropion Hcl (Wellbutrin Sr) 100 mg tablet sustained-release 12 hr Discontinued 100 mg PO TWICE A DAY April 11, 2023 12:00am October 31, 2023 10:23am celecoxib 400 mg oral capsule (1 source) Nonsteroidal Anti-inflammatory Drug Start: 11-30-2019 End: 11-30-2019 celecoxib (CELEBREX) capsule 400 mg DULoxetine 30 mg delayed release oral capsule (20 sources) Serotonin and Norepinephrine Reuptake Inhibitor Start: 12-15-2021 End: 01-18-2022 take 1 capsule by mouth once daily, then take 2 capsules by mouth once daily Duloxetine 30 mg capsule,delayed release(DR/EC) Discontinued 30 mg PO DAILY 7 December 15, 2021 1:30pm January 18, 2022 8:25pm x1 week then increase to 60 mg daily. Start: 12-15-2021 End: 11-10-2023 Duloxetine 60 mg capsule,del ayed release(DR/EC) Discontinued 60 mg PO DAILY 60 December 15, 2021 12:00am November 10, 2023 3:58pm Take 30 mg daily x 1 week then increase to 60 mg daily. Start: 12-14-2021 End: 12-15-2021 take 1 capsule by mouth twice daily Duloxetine 30 mg capsule,delayed release(DR/EC) Discontinued 30 mg PO TWICE A DAY 60 December 14, 2021 12:00am December 15, 2021 1:31pm famotidine 20 mg oral tablet (1 source) Histamine-2 Receptor Antagonist Start: 11-30-2019 End: 11-30-2019 famotidine (PEPCID) tablet 20 mg flaxseed-omega3,6,9-fatty acid 1,200-540-132 mg cap (1 source) Start: 04-12-2012 End: 10-08-2021 take 1 capsule by mouth once daily flaxseed-omega3,6 ,9-fatty acid 1,200-540-132 mg cap Take 1 capsule by mouth once daily. 0 04/12/2012 10/08/2021 Discontinued Comment on above: Take 1 capsule by [facility] once daily. gabapentin 300 mg oral capsule (1 source) Anti-epileptic Agent Start: 11-30-2019 End: 11-30-2019 gabapentin (NEURONTIN) capsule 300 mg hydroCHLOROthiazide 25 mg / lisinopril 20 mg oral tablet (1 source) Thiazide Diuretic, Angiotensin Converting Enzyme Inhibitor Start: 04-19-2011 End: 10-08-2021 take 1 tablet by mouth once daily lisinopril-hydroc hlorothiazide 20-25 mg ORAL per tablet Indications: Essential hypertension, benign Take 1 tablet by mouth once daily. 30 tablet 11 04/19/2011 10/08/2021 Discontinued Comment on above: Take 1 tablet by [facility] once daily. 4 ml labetalol hydrochloride 5 mg/ml cartridge (2 sources) beta-Adrenergic Lorraine Start: 11-30-2019 End: 11-30-2019 labetalol (NORMODYNE;TRANDA TE) injection 10 mg Start: 11-30-2019 labetalol (NOR MODYNE;TRANDATE) injection 5 mg 24 hr nicotine 0.875 mg/hr transdermal system (20 sources) Cholinergic Nicotinic Agonist Start: 02-19-2019 apply 1 dose transdermal route every twenty-four hours Nicoderm CQ 21 MG/24HR Transdermal Patch 24 Hour 1 (one) Patch q24hr for 0 days Quantity: 30 {Patch} Refills: 3 Ordered: 19-Mar-2019 WadeKelly watson DO Wade YOUSIF Kelly Start : 19-Mar-2019 Active Start: 09-29-2017 End: 03-22-2019 apply 21 mg transdermal route once daily Nicotine 21 MG patch Discontinued 21 mg TRANSDERM. DAILY January 12, 2019 12:00am February 08, 2019 3:20pm nitrofurantoin, macrocrystals 25 mg / nitrofurantoin, monohydrate 75 mg oral capsule (5 sources) Nitrofuran Antibacterial Start: 09-02-2024 End: 09-07-2024 take 1 capsule by mouth every twelve hours at mealtime Nitrofurantoin Monohyd/M-Cryst (Macrobid) 100 mg capsule Discontinued 100 mg PO Q12H 10 5 September 02, 2024 1:00am September 06, 2024 1:00am September 07, 2024 1:12am must administer with a meal/food polyethylene glycol 3350 566679 mg / potassium chloride 2980 mg / sodium bicarbonate 6720 mg / sodium chloride 5840 mg / sodium sulfate 94683 mg powder for oral solution (1 source) Osmotic Laxative Start: 04-23-2014 End: 10-08-2021 peg 3350-electrolytes (COLYTE) 240-22.72-6.72 gram solution Take 4000 ml as directed. Follow written instructions from the doctor's office. 1 Container 0 04/23/2014 10/08/2021 Discontinued Comment on above: Take 4000 ml as dire cted. Follow written instructions from the doctor's office. microencapsulated potassium chloride 20 meq extended release oral tablet (10 sources) Start: 05-05-2022 End: 11-10-2023 take 1 tablet by mouth once daily Potassium Chloride 20 mEq tablet,ER particles/crystals Discontinued 20 meq PO DAILY 2 May 05, 2022 12:00am November 10, 2023 3:56pm pramipexole dihydrochloride 1.5 mg oral tablet (20 sources) Nonergot Dopamine Agonist Start: 12-07-2023 End: 10-02-2024 take 1 tablet by mouth at bedtime Pramipexole 1.5 mg tablet Discontinued 1.5 mg PO AT BEDTIME 90 September 25, 2024 8:03pm October 02, 2024 1:56pm Start: 09-16-2022 take 1 tablet by mateus th once daily at bedtime pramipexole 1.5 mg oral tablet 1 Tablet qhs for 0 days Quantity: 60 {Tablet} Refills: 7 Ordered: 16-Sep-2022 Kelly Ma DO, DO, Kathleen Start : 16-Sep-2022 Active Start: 08-07-2021 take 1 tablet by mateus th once daily at bedtime Pramipexole Dihydrochloride 1.5 MG Oral Tablet 1 Tablet qhs for 0 days Quantity: 60 {Tablet} Refills: 11 Ordered: 07-Aug-2021 Kelly Ma DO, DO, Kathleen Start : 07-Aug-2021 Active Start: 06-20-2020 take 1 tablet by mateus th once daily at bedtime Pramipexole Dihydrochloride 1.5 MG Oral Tablet 1 Tablet qhs for 0 days Quantity: 60 {Tablet} Refills: 11 Ordered: 20-Jun-2020 Kelly Ma DO, DO, Kathleen Start : 20-Jun-2020 Active Start: 04-07-2020 take 1 tablet by mateus th once daily at bedtime Pramipexole Dihydrochloride 1.5 MG Oral Tablet 1 Tablet qhs for 0 days Quantity: 60 {Tablet} Refills: 0 Ordered: 07-Apr-2020 Kelly Ma DO, DO, Kathleen Start : 07-Apr-2020 Active Comments: pt needs to schedule appointment Start: 09-03-2019 take 1 tablet by mateus th once daily at bedtime Pramipexole Dihydrochloride 1.5 MG Oral Tablet 1 Tablet qhs for 0 days Quantity: 30 {Tablet} Refills: 6 Ordered: 03-Sep-2019 Kelly Ma DO, DO, Kathleen Start : 03-Sep-2019 Active Start: 06-28-2019 End: 12-07-2023 take 1 tablet by mouth every twenty-four hours at bedtime Pramipexole 1.5 mg tablet extended release 24 hr Discontinued 1.5 mg PO AT BEDTIME 90 November 08, 2023 10:17am December 07, 2023 5:03pm Start: 02-19-2019 take 1 tablet by mateus once daily at bedtime Pramipexole Dihydrochloride 1.5 MG Oral Tablet 1 Tablet qhs for 0 days Quantity: 30 {Tablet} Refills: 6 Ordered: 19-Feb-2019 Kelly Ma DO, DO, Kathleen Start : 19-Feb-2019 Active Start: 03-25-2014 End: 02-08-2019 take 1 tablet by mouth at bedtime Pramipexole 0.5 MG tablet Discontinued 0.5 mg PO AT BEDTIME March 25, 2014 12:00am February 08, 2019 3:34pm Start: 12-27-2011 End: 10-08-2021 take 1 tablet by mouth once daily pramipexole 0.25 mg tablet Indications: Restless legs syndrome (RLS) Take 1 tablet by mouth once daily. 30 tablet 11 12/27/2011 10/08/2021 Discontinued take 1 tablet by mateus three times daily pramipexole (Mirapex) 0.125 MG tablet Take 0.125 mg by mouth 3 times daily. 0 Active take 1.5 mg by mouth once daily pramipexole (MIRAPEX) 0.125 MG tablet Take 1.5 mg by mouth nightly 0 Active Comment on above: pt needs to schedule appointment Take 1 tablet by mateus once daily. predniSONE 20 mg oral tablet (10 sources) Start: 04-29-20 End: 04-11-20 23 take 1 tablet by mouth twice daily Prednisone 20 mg tablet Discontinued 20 mg PO TWICE A DAY April 29, 2022 12:00am April 11, 2023 1:10pm promethazine hydrochloride 25 mg oral tablet (13 sources) Phenothiazine Start: 12-10-19 End: 10-31-19 21 take 1 tablet by mouth every six hours as needed Promethazine 25 mg tablet Discontinued 25 mg PO EVERY 6 HOURS as needed December 10, 2019 12:00am October 30, 2020 1:38pm Start: 11-30-2019 End: 11-30-2019 promethazine (PHENERGAN) inj [...] TWICE A DAY 180 August 27, 2019 9:31am July 23, 2020 1:58pm On Hold: Plavix for orthopedic surgery Start: 01-11-2019 End: 05-24-2019 take 1 tablet by mouth twice daily Ticagrelor 90 mg tablet Discontinued 90 mg PO TWICE A DAY 180 February 08, 2019 3:48pm May 24, 2019 3:19pm take 1 tablet by mateus th once [...] as needed for Sleep June 28, 2019 1:00am December 14, 2021 3:10pm Start: 03-14-2019 take 1 tablet by mateus th once daily at bedtime traZODone HCl 50 MG Oral Tablet 1 (one) Tablet qhs for 30 days Quantity: 30 {Tablet} Refills: 2 Ordered: 14-Mar-2019 Kelly Ma DO, DO, Kathleen Start : 14-Mar-2019 Active [...] diffuse] Resolved: 0 05-03-2019 Episodic Acute bronchitis (11 sources) Acute bronchitis; Translations: [Acute bronchitis, unspecified] 07-14-2023 Episodic Acute myocardial infarction (20 sources) Acute myocardial infarction; Translations: [Acute myocardial infarction involving right coronary artery, unspecified ID type] Onset: 5 02-19-2019 Chronic Comment on above: x2-- s/p stents Acute myocardial infarction (19 sources) Acute myocardial infarction Administrative/social admission (11 sources) Patient encounter status; Translations: [Encounter for tobacco use cessation counseling] 06-20-2020 Episodic Comment on above: less than 10 min Anxiety disorders (10 sources) Mixed anxiety and depressive disorder; Translations: [Anxiety disorder, unspecified] 12-14-2021 Chronic Chronic obstructive pulmonary disease and bronchiectasis (20 sources) Chronic obstructive lung disease; Translations: [Chronic obstructive pulmonary disease, unspecified] Onset: 9 02-21-2009 Chronic Coronary atherosclerosis and other heart disease (20 sources) Multi vessel coronary artery disease; Translations: [Coronary arteriosclerosis in [place] artery] Onset: 6 02-19-2019 Chronic Comment on [...] was completed and 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 Emergent reprep and relook showed acute stent thrombosis. Emergent PTCA with 2.0 x 12 balloon, followed by Lindside catheter, followed by IVUS performed.Pt given Integrillin bolus and gtt, followed by post stent dilatation with a 3.0 x 10 Angiosculpt, followed by a 3.5 x 12 NC balloon. Repeat IVUS confirmed appropriate stent deployment and no resolution of scar tissue protruding through stent struts. 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 Emergent reprep and relook showed acute stent thrombosis. Emergent PTCA with 2.0 x 12 balloon, followed by Lindside catheter, followed by IVUS performed.Pt given Integrillin bolus and gtt, followed by post stent dilatation with a 3.0 x 10 Angiosculpt, followed by a 3.5 x 12 NC balloon. Repeat IVUS confirmed appropriate stent deployment and no resolution of scar tissue protruding through stent struts. 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 Emergent reprep and relook showed acute stent thrombosis. Emergent PTCA with 2.0 x 12 balloon, followed by Lindside catheter, followed by IVUS performed.Pt given Integrillin bolus and gtt, followed by post stent dilatation with a 3.0 x 10 Angiosculpt, followed by a 3.5 x 12 NC balloon. Repeat IVUS confirmed appropriate stent deployment and no resolution of scar tissue protruding through stent struts.Non-ST elevated myocardial infarction (non-STEMI): 12/29/2024 Patient had ECG changes consistent with a non-X7 elevation infarct. She underwent stenting of the severely diseased right coronary artery and IFR was negative of the LAD lesion. Coronary atherosclerosis and other heart disease (19 sources) Coronary atherosclerosis and other heart disease Disorders of lipid metabolism (20 sources) Mixed hyperlipidemia; Translations: [Hyperlipidemia, mixed] Onset: 5 02-19-2019 Chronic Essential hypertension (20 sources) Essential hypertension; Translations: [Benign essential hypertension] Onset: 6 02-24-2016 Chronic Fluid and electrolyte disorders (10 sources) Hypokalemia; Translations: [Hypokalemia] 05-05-2022 Episodic Fracture of upper limb (20 sources) Closed fracture of upper end of humerus; Translations: [Fracture of clavicle] 01-10-2019 Episodic Genitourinary symptoms and ill-defined conditions (8 sources) Increased frequency of urination; Translations: [Frequency of micturition] Onset: 5 08-08-2024 Episodic Headache; including migraine (3 sources) Migraine; Translations: [Other forms of migraine] 01-10-2007 Chronic Immunizations and screening for infectious disease (19 sources) Needs influenza immunization; Translations: [Encounter for immunization] 04-11-2023 Episodic Mood disorders (13 sources) Recurrent major depressive episodes; Translations: [Major depressive disorder, recurrent, unspecified] Onset: 9 10-15-2008 Chronic Nausea and vomiting (8 sources) Nausea; Translations: [Nausea] Onset: 8 11-08-2007 Episodic Nonspecific chest pain (10 sources) Chest pain; Translations: [Chest pain, unspecified] Onset: 5 12-28-2024 Episodic Osteoarthritis (4 sources) Localized osteoarthrosis; Translations: [Unilateral primary osteoarthritis, unspecified hip] Onset: 8 04-19-2008 Chronic Osteoporosis (15 sources) Senile osteoporosis; Translations: [Age-related osteoporosis without current pathological fracture] Onset: 5 01-10-2007 Chronic Other circulatory disease (12 sources) Disorder of carotid artery; Translations: [Disorder of arteries and arterioles, unspecified] 11-11-2023 Chronic Other circulatory disease (2 sources) Disorder of arteries and arterioles, unspecified; Translations: [Unspecified disorders of arteries and arterioles] Onset: 5 11-11-2023 Chronic Other circulatory disease (5 sources) History of transient ischemic attack; Translations: [Personal history of transient ischemic attack (TIA), and cerebral infarction without residual deficits] 12-12-2023 Episodic Other connective tissue disease (10 sources) Hand pain; Translations: [Pain in left [...] injuries and conditions due to external causes (10 sources) H/O: fracture; Translations: [Personal history of (healed) traumatic fracture] 12-14-2021 Episodic Other injuries and conditions due to external causes (10 sources) Fracture of bone; Translations: [Other injury of unspecified body region, initial encounter] 12-14-2021 Episodic Other lower respiratory disease (18 sources) Dyspnea on exertion; Translations: [Dyspnea, unspecified] Onset: 6 02-24-2016 Episodic Other lower respiratory disease (4 sources) Other forms of dyspnea; Translations: [Other respiratory abnormalities] Episodic Other lower respiratory disease (2 sources) Cough; Translations: [Acute cough] 06-05-2024 Episodic Other nervous system disorders (10 sources) Chronic pain; Translations: [Other chronic pain] 12-14-2021 Chronic Other non-traumatic joint disorders (8 sources) Hip pain; Translations: [Pain in left hip] 12-20-2023 Episodic Other non-traumatic joint disorders (2 sources) Pain in left hip; Translations: [Pain in left hip] Onset: Episodic Other non-traumatic joint disorders (5 sources) Pain in left shoulder; Translations: [Left shoulder pain] 12-12-2023 Episodic Other nutritional; endocrine; and metabolic disorders [...] Translations: [Insomnia] 02-19-2019 Episodic Residual codes; unclassified (10 sources) History of operative procedure on shoulder; Translations: [Other specified postprocedural states] 12-14-2021 Episodic Residual codes; unclassified (8 sources) Patient noncompliance - general; Translations: [General patient noncompliance] 04-11-2023 Episodic Residual codes; unclassified (8 sources) Tobacco user; Translations: [Tobacco use] 10-31-2023 Episodic Residual codes; unclassified (3 sources) Tobacco use; Translations: [Tobacco use disorder] 10-31-2023 Episodic Screening and history of mental health and substance abuse codes (2 sources) Tobacco smoking behavior - finding; Translations: [Smoking addiction] Onset: 6 02-24-2016 Chronic Substance-related disorders (20 sources) Smoker; Translations: [Smoker] Onset: 6 02-19-2019 Chronic Transient cerebral ischemia (9 sources) Transient cerebral ischemia; Translations: [Transient cerebral ischemic attack, unspecified] 11-10-2023 Chronic Unclassified (19 sources) RLS (restless legs syndrome) Unclassified (19 sources) CAD, multiple vessel Unclassified (20 sources) Unclassified (13 sources) BMI 25.0-25.9,adult Unclassified (1 source) Acute cough; Translations: [Acute cough] Onset: 4 Unclassified (2 sources) Carotid artery disease; Translations: [I77.9 - Disorder of arteries and arterioles, unspecified] Unclassified (3 sources) -You will need to follow-up with cardiology upon discharge in 7 to 10 days, please call the office upon discharge to schedule your hospital follow-up appointment ( [phone]) with Edilia Avilez Unclassified (2 sources) I21.4 - Non-ST elevation (NSTEMI) myocardial infarction,Z95.5 - Presence of coronary angioplasty implant and graft Past or Other Problems Problem Classification Problem Date Documented Da te Episodic/Chronic Gastritis and duodenitis (3 sources) Acute hemorrhagic gastritis; Translations: [Acute gastritis with bleeding] Onset: 12-28-2007 04-16-2008 Episodic Other gastrointestinal disorders (3 sources) Flatulence, eructation and gas pain; Translations: [Flatulence] Onset: 11-08-2007 11-08-2007 Episodic Unclassified (20 sources) Encounter for tobacco [...] Test Name Value Interpretation Reference Range Facility 12 Lead EKGon 12-29-2024 12 Lead EKG [facility] [address] [place] [address] 12 Lead EKG 12/29/24 0438 MR#: [id number] Acct: [id number] Name: GIOVANNI LOMAX Rep #: [id number] : [id number] From: Dequan Roman MD Attending Dr: Dr. Temi Banda MD Status: DIS IN Ordering Dr: Tony Fernandez MD Date: 5 Location: [facility] Sex: F C Admitted: 12/28/24 Test Reason : AM EKG Blood Pressure : */* mmHG Vent. Rate : 70 BPM Atrial Rate : 70 BPM P-R Int : 164 ms QRS Dur : 76 ms QT Int : 486 ms P-R-T Axes : 69 49 -55 degrees QTcB Int : 524 ms Normal sinus rhythm ST T wave abnormality, consider inferolateral ischemia Prolonged QT Abnormal ECG When compared with ECG of 28-Dec-2024 13:01, MANUAL COMPARISON REQUIRED DATA IS UNCONFIRMED Confirmed by KECIA LYNNE, DEQUAN ([id number]), primer expeditor and drier FELICITAS CHRISTIE ([id number]) on 01/01/2025 6:38:09 AM Referred By: Confirmed By: DEQUAN ROMAN MD 01/01/25 0638 Date Dequan Roman MD CC: Dr. Leonidas Traore MD; Dr. Tony Fernandez MD; Dr. Temi Banda MD Signed Normal [facility] Absolute lymphocyte countOrd ered By: Temi Banda on 12-29-2024 Lymphocytes Auto (Unsp spec) [#/Vol] 1.95 10*3/uL 0.83-4.51 [facility] Absolute neutrophil countOrd ered By: Temi Banda on 12-29-2024 Neutrophils (Bld) [#/Vol] 7.2 10*3/uL 2.0-7.7 [facility] Anion gap in Serum or Plasma Ordered By: Tony Fernandez on 12-29-2024 Anion gap [Moles/Vol] 12 mmol/L 5-15 [facility] Automated lymphocyte count a s percentage of total leukocytesOrdered By: Temi Banda on 12-29-2024 Lymphocytes/100 WBC Auto (Unsp spec) 19.7 % 19-41 [facility] BUN/creatinine ratioOrdered By: Tnoy Fernandez on 12-29-2024 Urea nitrogen/Creatinine [Mass ratio] 29.3 mg/mg High 10-20 [facility] Basophil percentageOrdered B y: Temi Banda on 12-29-2024 Basophils/100 WBC (Bld) 0.5 % 0-1 [facility] Bilirubin, totalOrdered By: Tony Fernandez on 12-29-2024 Bilirubin [Mass/Vol] 0.59 mg/dL 0.00-1.30 [facility] CBC W/Diff, Automatedon 12-10 Absolute Lymph 1.95 X10 3/uL Normal 0.83-4.51 [facility] Comment on above: Performed By: #### L 300.4310, L300.3900 #### [facility] [address] [place], [address] Absolute Neut 7.2 X10 3/uL Normal 2.0-7.7 [facility] Comment on above: Performed By: #### L 300.4310, L300.3900 #### [facility] [address] [place], [address] Basophils/100 WBC (Bld) 0.5 % Normal 0-1 [facility] Comment on above: Performed By: #### L 300.4310, L300.3900 #### [facility] [address] [place], [address] Eosinophils/100 WBC (Bld) 1.6 % Normal 0-5 [facility] Comment on above: Performed By: #### L 300.4310, L300.3900 #### [facility] [address] [place], [address] Erythrocyte distribution width (RBC) [Ratio] 13.9 % Normal 11.6-14.6 [facility] Comment on above: Performed By: #### L 300.4310, L300.3900 #### [facility] [address] [place], [address] Hematocrit (Bld) [Volume fraction] 43.0 % Normal 37-47 [facility] Comment on above: Performed By: #### L 300.4310, L300.3900 #### [facility] [address] [place], [address] Hemoglobin (Bld) [Mass/Vol] 14.1 g/dL Normal 12.0-15.0 [facility] Comment on above: Performed By: #### L 300.4310, L300.3900 #### [facility] [address] [place], [address] IG% 0.300 Normal 0.0-0.9 [facility] Comment on above: Result Comment: IG% - Immature Granulocytes (promyelocytes, myelocytes and metamyelocytes) > 1% indicates that a LEFT SHIFT is Present. Performed By: #### L 300.4310, L300.3900 #### [facility] [address] [place], [address] Lymphocytes/100 WBC (Bld) 19.7 % Normal 19-41 [facility] Comment on above: Performed By: #### L 300.4310, L300.3900 #### [facility] [address] [place], [address] MCH (RBC) [Entitic mass] 28.8 pg Normal 27.0-32.0 [facility] Comment on above: Performed By: #### L 300.4310, L300.3900 #### [facility] [address] [place], [address] MCHC (RBC) [Mass/Vol] 32.8 g/dL Normal 32-36 [facility] Comment on above: Performed By: #### L 300.4310, L300.3900 #### [facility] [address] [place], [address] MCV (RBC) [Entitic vol] 87.9 fL Normal 81-99 [facility] Comment on above: Performed By: #### L 300.4310, L300.3900 #### [facility] [address] [place], [address] Monocytes/100 WBC (Bld) 5.5 % Normal 0-10 [facility] Comment on above: Performed By: #### L 300.4310, L300.3900 #### [facility] [address] [place], [address] Neutrophils/100 WBC (Bld) 72.4 % High 47-70 [facility] Comment on above: Performed By: #### L 300.4310, L300.3900 #### [facility] [address] [place], [address] Nucleated RBC (Bld) [#/Vol] 0 10*3/uL Normal 0-5 [facility] Comment on above: Performed By: #### L 300.4310, L300.3900 #### [facility] [address] [place], [address] Platelet mean volume (Bld) [Entitic vol] 9.8 fL Normal 6.2-12.0 [facility] Comment on above: Performed By: #### L 300.4310, L300.3900 #### [facility] [address] [place], [address] Platelets (Bld) [#/Vol] 326 10*3/uL Normal 150-450 [facility] Comment on above: Performed By: #### L 300.4310, L300.3900 #### [facility] [address] [place], [address] RBC (Bld) [#/Vol] 4.89 10*6/uL Normal 4.2-5.4 [facility] Comment on above: Performed By: #### L 300.4310, L300.3900 #### [facility] [address] [place], [address] RDW SD 44.6 fl High 35.1-43.9 [facility] Comment on above: Performed By: #### L 300.4310, L300.3900 #### [facility] [address] [place], [address] WBC (Bld) [#/Vol] 9.9 10*3/uL Normal 4.4-11.0 [facility] Comment on above: Performed By: #### L 300.4310, L300.3900 #### [facility] [address] [place], [address] Carbon dioxide, total [Moles /volume] in Central venous bloodOrdered By: Tony Fernandez on 12-29-2024 CO2 [Moles/Vol] 25.2 mmol/L 21.0-32.0 [facility] Chloride assayOrdered By: Anna Fernandez on 12-29-2024 Chloride [Moles/Vol] 102 mmol/L 98-108 [facility] Comprehensive Metabolic Prof ilon 12-29-2024 Albumin [Mass/Vol] 3.9 g/dL Normal 3.4-4.8 [facility] Comment on above: Performed By: #### L 300.4310, L300.3900 #### [facility] [address] [place], [address] Albumin/Globulin [Mass ratio] 1.2 {ratio} Normal 0.9-2.4 [facility] Comment on above: Performed By: #### L 300.4310, L300.3900 #### [facility] [address] [place], [address] ALK PHOS 63 U/L Normal 35-104 [facility] Comment on above: Performed By: #### L 300.4310, L300.3900 #### [facility] [address] [place], [address] ALT [Catalytic activity/Vol] 16 U/L Normal <=34 [facility] Comment on above: Performed By: #### L 300.4310, L300.3900 #### [facility] [address] [place], [address] AST [Catalytic activity/Vol] 27 U/L Normal <=31 [facility] Comment on above: Performed By: #### L 300.4310, L300.3900 #### [facility] [address] [place], [address] Bilirubin [Mass/Vol] 0.59 mg/dL Normal 0.00-1.30 [facility] Comment on above: Performed By: #### L 300.4310, L300.3900 #### [facility] [address] [place], [address] BUN/CRE 29.3 RATIO High 10-20 [facility] Comment on above: Performed By: #### L 300.4310, L300.3900 #### [facility] [address] [place], [address] Calcium [Mass/Vol] 8.8 mg/dL Normal 7.6-11.0 [facility] Comment on above: Performed By: #### L 300.4310, L300.3900 #### [facility] [address] [place], [address] Chloride [Moles/Vol] 102 mmol/L Normal 98-108 [facility] Comment on above: Performed By: #### L 300.4310, L300.3900 #### [facility] [address] [place], [address] CO2 [Moles/Vol] 25.2 mmol/L Normal 21.0-32.0 [facility] Comment on above: Performed By: #### L 300.4310, L300.3900 #### [facility] [address] [place], [address] Creatinine [Mass/Vol] 0.84 mg/dL Normal 0.70-1.20 [facility] Comment on above: Performed By: #### L 300.4310, L300.3900 #### [facility] [address] [place], [address] ECRCL 69.66 ml/min Normal 50-250 [facility] Comment on above: Performed By: #### L 300.4310, L300.3900 #### [facility] [address] [place], [address] GAP 12 Normal 5-15 [facility] Comment on above: Performed By: #### L 300.4310, L300.3900 #### [facility] [address] [place], [address] GFR/1.73 sq M.predicted among non-blacks MDRD (S/P/Bld) [Vol rate/Area] 77 mL/min/{1.73_m2} Normal >60 [facility] Comment on above: Result Comment: mL/m in/1.73m2 CKD-EPI Creatinine Equation (2020) Performed By: #### L 300.4310, L300.3900 #### [facility] [address] [place], [address] Globulin (S) [Mass/Vol] 3.2 g/dL Normal 2.2-4.2 [facility] Comment on above: Performed By: #### L 300.4310, L300.3900 #### [facility] [address] [place], [address] Glucose [Mass/Vol] 132 mg/dL High 70-99 [facility] Comment on above: Performed By: #### L 300.4310, L300.3900 #### [facility] [address] [place], [address] Potassium [Moles/Vol] 3.6 mmol/L Normal 3.3-5.1 [facility] Comment on above: Performed By: #### L 300.4310, L300.3900 #### [facility] [address] [place], [address] Sodium [Moles/Vol] 139 mmol/L Normal 133-145 [facility] Comment on above: Performed By: #### L 300.4310, L300.3900 #### [facility] [address] [place], [address] T PROT 7.1 g/dL Normal 5.9-8.4 [facility] Comment on above: Performed By: #### L 300.4310, L300.3900 #### [facility] [address] [place], [address] Urea nitrogen [Mass/Vol] 25 mg/dL High 4-19 [facility] Comment on above: Performed By: #### L 300.4310, L300.3900 #### [facility] [address] [place], [address] Discharge Instructionon 06- Discharge Instruction [facility] Medical Records Department [address] [place] [address] Instructions for Home/Discharge Instructions 12/29/24 1413 MR#: [id number] Acct: [id number] Name: GIOVANNI LOMAX Rep #: [id number] : 1955 69 From: Temi Banda MD PCP: Dr. Leonidas Traore MD Status:ADM IN Discharge Instructions DC O2, CPAP, BIPAP needs Home O2 Discharge instructions: No Dressing / Incision Discharge Activity: - (See additional instructions) Follow Up Care Test Results: Test results from this visit will be discussed in further detail at your follow-up appointment, if applicable. Discharge Plan Admission Admit Date/Time: 12/28/24 10:09 Primary Reason for Your Visit: Chest burning and back pain Attending Provider: Temi Banda Primary Care Provider: Leonidas Traore Consulting Providers: Alonzo Blackburn Instructions Patient Instructions: Cardiac Cath Transradial Additional Instructions / Restrictions: DISCHARGE INSTRUCTIONS PLEASE READ *Please take this with you to your next doctors appointment* -Do only light and easy activities for 2 to 3 days after your stent placement, ask for help with chores and errands while you recover and have someone drive you to your appointments. -Unless your job involves lifting you may return to normal activities within 2 days -Please take your medications as prescribed, do not skip doses -Check your incisions every day for signs of infection which would include redness, swelling, leaking. It is normal to have a small bruise or bump where the catheter was placed but a bruise that is getting larger is not normal. Please tell your healthcare team about this. Please proceed to the emergency department if you have uncontrollable bleeding from the site. -It is important to eat a diet that is low in fat, salt, and cholesterol -You will be set up with cardiac rehab upon discharge, it is important that you follow-up -Okay to shower from the day after your heart catheterization but keep your incision site clean and dry. -You will need to follow-up with cardiology upon discharge in 7 to 10 days, please call the office upon discharge to schedule your hospital follow-up appointment (ph [phone]) with Edilia Avilez - it is strongly advised to refrain from smoking - please continue your aspirin, atorvastatin, Plavix, metoprolol as well as your other home medications -Please call your primary care provider's office upon discharge to schedule a hospital follow up within 1 week. -For any concerning signs or symptoms please call 911 or proceed to the nearest emergency department Discharge Orders/Prescriptions Prescriptions: Continued Prolia 60 mg/mL syringe 60 mg subcut [id number] Qty: 1 1RF atorvastatin 80 mg tablet 80 mg PO [...] puff inhalation Q6H PRN PRN (Reason: Sob /Or Wheezing) Qty: 8.5 0RF Trelegy Ellipta 100-62.5-25 mcg blister with device 1 inh inhalation Q24H 90 Days Qty: 60 2RF pramipexole 1.5 mg tablet 1.5 mg PO QHS Qty: 30 1RF Referrals / Follow Up: Leonidas Traore MD [Primary Care Provider] - Within 1 Week Edilia Avilez PA [Med Staff - [facility] Practice Prof] - Within 2 Weeks (-You will need to follow-up with cardiology upon discharge in 7 to 10 days, please call the office upon discharge to schedule your hospital follow-up appointment (ph [phone]) with Edilia Avilez) Disposition Disposition (needs filled in before D/C Order can be placed): Home, Self Care 12/29/24 1414 Temi Banda MD CC: Dr. Leonidas Traore MD; Dr. Alonzo Blackburn MD Signed Normal [facility] Eosinophil percentageOrdered By: Temi Banda on 12-29-2024 Eosinophils/100 WBC (Bld) 1.6 % 0-5 [facility] Erythrocyte distribution wid th ratioOrdered By: Temi Banda on 12-29-2024 Erythrocyte distribution width (RBC) [Ratio] 13.9 % 11.6-14.6 [facility] Erythrocyte distribution wid th standard deviationOrdered By: Temi Banda on 12-29-2024 Erythrocyte distribution width (RBC) [Ratio] 44.6 fl High 35.1-43.9 [facility] Glomerular filtration rate ( GFR) estimation/1.73 sq m using serum, plasma, or whole bOrdered By: Tony Fernandez on 12-29-2024 GFR/1.73 sq M.predicted among non-blacks MDRD (S/P/Bld) [Vol rate/Area] 77 mL/min/{1.73_m2} >60 [facility] Comment on above: mL/min/1.73m2 CKD-EP I Creatinine Equation (2020) Hematocrit Auto (Bld) [Volum e fraction]Ordered By: Temi Banda on 12-29-2024 Hematocrit (Bld) [Volume fraction] 43.0 % 37-47 [facility] Hemoglobin measurementOrdere d By: Temi Banda on 12-29-2024 Hemoglobin (Bld) [Mass/Vol] 14.1 g/dL 12.0-15.0 [facility] Immature granulocytes/100 WB C Auto (Bld)Ordered By: Temi Banda on 12-29-2024 Immature granulocytes/100 WBC (Bld) 0.300 % 0.0-0.9 [facility] Comment on above: IG% - Immature Granu locytes (promyelocytes, myelocytes and metamyelocytes) > 1% indicates that a LEFT SHIFT is Present. International normalized rat io (INR) calculationOrdered By: Temi Banda on 12-29-2024 INR Coag (Bld) [Relative time] 1.0 {INR} [facility] Laboratory - Chemistry and C hemistry - challengeOrdered By: Tony Fernandez on 12-29-2024 AST [Catalytic activity/Vol] 27 U/L <32 [facility] MCV (mean corpuscular volume ) determinationOrdered By: Temi Banda on 12-29-2024 MCV (RBC) [Entitic vol] 87.9 fL 81-99 [facility] Mean corpuscular hemoglobin (MCH) determinationOrdered By: Temi Banda on 12-29-2024 MCH (RBC) [Entitic mass] 28.8 pg 27.0-32.0 [facility] Mean corpuscular hemoglobin concentration (MCHC) determinationOrdered By: Temi Banda on 12-29-2024 MCHC (RBC) [Mass/Vol] 32.8 g/dL 32-36 [facility] Mean platelet volume determi nationOrdered By: Temi Banda on 12-29-2024 Platelet mean volume (Bld) [Entitic vol] 9.8 fL 6.2-12.0 [facility] Monocyte percentageOrdered B y: Temi Banda on 12-29-2024 Monocytes/100 WBC (Bld) 5.5 % 0-10 [facility] Neutrophil percentageOrdered By: Temi Banda on 12-29-2024 Neutrophils/100 WBC (Bld) 72.4 % High 47-70 [facility] Nucleated red blood cell per centageOrdered By: Temi Banda on 12-29-2024 Nucleated RBC/100 WBC (Bld) [Ratio] 0 % 0-5 [facility] Platelet countOrdered By: Kailey Banda on 12-29-2024 Platelets (Bld) [#/Vol] 326 10*3/uL 150-450 [facility] Potassium measurement (mass/ volume)Ordered By: Tony Fernandez on 12-29-2024 Potassium (Unsp spec) [Mass/Vol] 3.6 mmol/L 3.3-5.1 [facility] Prothrombin Time w/INRon INR Coag (PPP) [Relative time] 1.0 {INR} Normal [facility] Comment on above: Performed By: #### L 300.3900 #### [facility] Laboratory [address] [place], [address] PT Coag (PPP) [Time] 12.8 s Normal 11.7-14.9 [facility] Comment on above: Performed By: #### L 300.3900 #### [facility] [address] [place], [address] Prothrombin timeOrdered By: Temi Banda on 12-29-2024 PT Coag (PPP) [Time] 12.8 s 11.7-14.9 [facility] RBC Auto (Bld) [#/Vol]Ordere d By: Temi Banda on 12-29-2024 RBC (Bld) [#/Vol] 4.89 10*6/uL 4.2-5.4 [facility] Serum creatinine measurement (mass/volume)Ordered By: Tony Fernandez on 12-29-2024 Creatinine [Mass/Vol] 0.84 mg/dL 0.70-1.20 [facility] Serum globulin measurementOr dered By: Tony Fernandez on 12-29-2024 Globulin (S) [Mass/Vol] 3.2 g/dL 2.2-4.2 [facility] Serum glucose measurement (m ass/volume)Ordered By: Tony Fernandez on 12-29-2024 Glucose [Mass/Vol] 132 mg/dL High 70-99 [facility] Serum or plasma alanine fletcher otransferase (ALT) measurementOrdered By: Tony Fernandez on 12-29-2024 ALT [Catalytic activity/Vol] 16 U/L <35 [facility] Serum or plasma albumin za urement (mass/volume)Ordered By: Tony Fernandez on 12-29-2024 Albumin [Mass/Vol] 3.9 g/dL 3.4-4.8 [facility] Serum or plasma albumin/glob ulin mass ratioOrdered By: Tony Fernandez on 12-29-2024 Albumin/Globulin [Mass ratio] 1.2 {ratio} 0.9-2.4 [facility] Serum or plasma alkaline ori sphatase measurementOrdered By: Tony Fernandez on 12-29-2024 ALP [Catalytic activity/Vol] 63 U/L 35-104 [facility] Serum or plasma calcium za urement (mass/volume)Ordered By: Tony Fernandez on 12-29-2024 Calcium [Mass/Vol] 8.8 mg/dL 7.6-11.0 [facility] Serum or plasma urea nitroge n measurement (mass/volume)Ordered By: Tony Fernandez on 12-29-2024 Urea nitrogen [Mass/Vol] 25 mg/dL High 4-19 [facility] Sodium levelOrdered By: Driss Fernandez on 12-29-2024 Sodium [Moles/Vol] 139 mmol/L 133-145 [facility] TSH DL <= 0.005 mIU/L QnOrde red By: Temi Banda on 12-29-2024 TSH Qn 0.775 uIU/mL 0.300-4.200 [facility] Thyroid Stim Hormone (TSH)on 12-29-2024 TSH 0.775 uIU/mL Normal 0.300-4.200 [facility] Comment on above: Performed By: #### L 300.5320, L300.3900 #### [facility] [address], [place], [address] Total proteinOrdered By: Maximo Fernandez on 12-29-2024 Protein [Mass/Vol] 7.1 g/dL 5.9-8.4 [facility] White blood cell (WBC) count Ordered By: Temi Banda on 12-29-2024 WBC (Bld) [#/Vol] 9.9 10*3/uL 4.4-11.0 [facility] 12 Lead EKGon 12-28-2024 12 Lead EKG [facility] Cardiovascular Services [address] [place] [address] 12 Lead EKG 12/28/24 1301 MR#: [id number] Acct: [id number] Name: GIOVANNI LOMAX Rep #: [id number] : 1955 69 From: Dequan Roman MD Attending Dr: Dr. Temi Banda MD Status: DIS IN Ordering Dr: Temi Banda MD Date: 12/28/24 Location: [facility] Sex: F C Admitted: 12/28/24 Test Reason : ADMIT Blood Pressure : */* mmHG Vent. Rate : 73 BPM Atrial Rate : 73 BPM P-R Int : 172 ms QRS Dur : 78 ms QT Int : 426 ms P-R-T Axes : 71 51 -9 degrees QTcB Int : 469 ms Normal sinus rhythm Nonspecific T wave abnormality Abnormal ECG When compared with ECG of 28-Dec-2024 05:24, MANUAL COMPARISON REQUIRED DATA IS UNCONFIRMED Confirmed by DEQUAN ROMAN MD ([id number]), primer expeditor and drier FELICITAS CHRISTIE ([id number]) on 01/01/2025 6:38:34 AM Referred By: Confirmed By: DEQUAN ROMAN MD 01/01/25 0638 Date Dequan Roman MD CC: Dr. Leonidas Traore MD; Dr. Temi Banda MD Signed Normal [facility] ACT Activated Clotting Timeo n 12-28-2024 ACTk CLOT TIME 204 sec High 74-137 [facility] Comment on above: Performed By: #### L 300.4310, L300.3900 #### [facility] [address] [place], [place], [id number] Absolute lymphocyte countOrd ered By: Gonzalo Hurst on 12-28-2024 Lymphocytes Auto (Unsp spec) [#/Vol] 2.81 10*3/uL 0.83-4.51 [facility] Absolute neutrophil countOrd ered By: Gonzalo Hurst on 12-28-2024 Neutrophils (Bld) [#/Vol] 9.0 10*3/uL High 2.0-7.7 [facility] Activated partial thrombopla stin time (aPTT) in platelet poor plasma by coagulation aOrdered By: Caleb Walls on 12-28-2024 aPTT Coag (PPP) [Time] 28.6 s 24.1-36.2 [facility] Anion gap in Serum or Plasma Ordered By: Gonzalo Hurst on 12-28-2024 Anion gap [Moles/Vol] 16 mmol/L High 5-15 [facility] Automated lymphocyte count a s percentage of total leukocytesOrdered By: Gonzalo Hurst on 12-28-2024 Lymphocytes/100 WBC Auto (Unsp spec) 22.2 % 19-41 [facility] BUN/creatinine ratioOrdered By: Gonzalo Hurst on 12-28-2024 Urea nitrogen/Creatinine [Mass ratio] 25.4 mg/mg High 10- [facility] Basic Metabolic Profile (BMP )on 12-28-2024 BUN/CRE 25.4 RATIO High 04-29 [facility] Comment on above: Performed By: #### L 300.4310, L300.3900 #### [facility] [address] [place], [place], [id number] Calcium [Mass/Vol] 8.9 mg/dL Normal 7.6-11.0 [facility] Comment on above: Performed By: #### L 300.4310, L300.3900 #### [facility] [address] [place], [address] Chloride [Moles/Vol] 99 mmol/L Normal 98-108 [facility] Comment on above: Performed By: #### L 300.4310, L300.3900 #### [facility] [address] [place], [address] CO2 [Moles/Vol] 22.1 mmol/L Normal 21.0-32.0 [facility] Comment on above: Performed By: #### L 300.4310, L300.3900 #### [facility] [address] [place], [address] Creatinine [Mass/Vol] 0.71 mg/dL Normal 0.70-1.20 [facility] Comment on above: Performed By: #### L 300.4310, L300.3900 #### [facility] [address] [place], [address] ECRCL 72.37 ml/min Normal 50-250 [facility] Comment on above: Performed By: #### L 300.4310, L300.3900 #### [facility] [address] [place], [address] GAP 16 High 5-15 [facility] Comment on above: Performed By: #### L 300.4310, L300.3900 #### [facility] [address] [place], [address] GFR/1.73 sq M.predicted among non-blacks MDRD (S/P/Bld) [Vol rate/Area] 94 mL/min/{1.73_m2} Normal >60 [facility] Comment on above: Result Comment: mL/m in/1.73m2 CKD-EPI Creatinine Equation (2020) Performed By: #### L 300.4310, L300.3900 #### [facility] [address] [place], [address] Glucose [Mass/Vol] 131 mg/dL High 70-99 [facility] Comment on above: Performed By: #### L 300.4310, L300.3900 #### [facility] [address] [place], [address] Potassium [Moles/Vol] 4.1 mmol/L Normal 3.3-5.1 [facility] Comment on above: Performed By: #### L 300.4310, L300.3900 #### [facility] [address] [place], [address] Sodium [Moles/Vol] 137 mmol/L Normal 133-145 [facility] Comment on above: Performed By: #### L 300.4310, L300.3900 #### [facility] [address] [place], [address] Urea nitrogen [Mass/Vol] 18 mg/dL Normal 4-19 [facility] Comment on above: Performed By: #### L 300.4310, L300.3900 #### [facility] [address] [place], [address] Basophil percentageOrdered B y: Gonzalo Hurst on 12-28-2024 Basophils/100 WBC (Bld) 0.6 % 0-1 [facility] Bilirubin directOrdered By: Gonzalo Hurst on 12-28-2024 Bilirubin.direct [Mass/Vol] 0.15 mg/dL 0.00-0.30 [facility] Bilirubin, totalOrdered By: Gonzalo Hurst on 12-28-2024 Bilirubin [Mass/Vol] 0.38 mg/dL 0.00-1.30 [facility] CBC W/Diff, Automatedon 12-10 Absolute Lymph 2.81 X10 3/uL Normal 0.83-4.51 [facility] Comment on above: Performed By: #### L 300.4310, L300.3900 #### [facility] [address] [place], [address] Absolute Neut 9.0 X10 3/uL High 2.0-7.7 [facility] Comment on above: Performed By: #### L 300.4310, L300.3900 #### [facility] [address] [place], [address] Basophils/100 WBC (Bld) 0.6 % Normal 0-1 [facility] Comment on above: Performed By: #### L 300.4310, L300.3900 #### [facility] [address] [place], [address] Eosinophils/100 WBC (Bld) 0.9 % Normal 0-5 [facility] Comment on above: Performed By: #### L 300.4310, L300.3900 #### [facility] [address] [place], [address] Erythrocyte distribution width (RBC) [Ratio] 13.9 % Normal 11.6-14.6 [facility] Comment on above: Performed By: #### L 300.4310, L300.3900 #### [facility] [address] [place], [address] Hematocrit (Bld) [Volume fraction] 44.3 % Normal 37-47 [facility] Comment on above: Performed By: #### L 300.4310, L300.3900 #### [facility] [address] [place], [address] Hemoglobin (Bld) [Mass/Vol] 14.6 g/dL Normal 12.0-15.0 [facility] Comment on above: Performed By: #### L 300.4310, L300.3900 #### [facility] [address] [place], [address] IG% 0.400 Normal 0.0-0.9 [facility] Comment on above: Result Comment: IG% - Immature Granulocytes (promyelocytes, myelocytes and metamyelocytes) > 1% indicates that a LEFT SHIFT is Present. Performed By: #### L 300.4310, L300.3900 #### [facility] [address] [place], [address] Lymphocytes/100 WBC (Bld) 22.2 % Normal 19-41 [facility] Comment on above: Performed By: #### L 300.4310, L300.3900 #### [facility] [address] [place], [address] MCH (RBC) [Entitic mass] 28.9 pg Normal 27.0-32.0 [facility] Comment on above: Performed By: #### L 300.4310, L300.3900 #### [facility] [address] [place], [address] MCHC (RBC) [Mass/Vol] 33.0 g/dL Normal 32-36 [facility] Comment on above: Performed By: #### L 300.4310, L300.3900 #### [facility] [address] [place], [address] MCV (RBC) [Entitic vol] 87.7 fL Normal 81-99 [facility] Comment on above: Performed By: #### L 300.4310, L300.3900 #### [facility] [address] [place], [address] Monocytes/100 WBC (Bld) 4.8 % Normal 0-10 [facility] Comment on above: Performed By: #### L 300.4310, L300.3900 #### [facility] [address] [place], [address] Neutrophils/100 WBC (Bld) 71.1 % High 47-70 [facility] Comment on above: Performed By: #### L 300.4310, L300.3900 #### [facility] [address] [place], [address] Nucleated RBC (Bld) [#/Vol] 0 10*3/uL Normal 0-5 [facility] Comment on above: Performed By: #### L 300.4310, L300.3900 #### [facility] [address] [place], [address] Platelet mean volume (Bld) [Entitic vol] 10.4 fL Normal 6.2-12.0 [facility] Comment on above: Performed By: #### L 300.4310, L300.3900 #### [facility] [address] [place], [address] Platelets (Bld) [#/Vol] 344 10*3/uL Normal 150-450 [facility] Comment on above: Performed By: #### L 300.4310, L300.3900 #### [facility] [address] [place], [address] RBC (Bld) [#/Vol] 5.05 10*6/uL Normal 4.2-5.4 [facility] Comment on above: Performed By: #### L 300.4310, L300.3900 #### [facility] [address] [place], [address] RDW SD 44.6 fl High 35.1-43.9 [facility] Comment on above: Performed By: #### L 300.4310, L300.3900 #### [facility] [address] [place], [address] WBC (Bld) [#/Vol] 12.7 10*3/uL High 4.4-11.0 [facility] Comment on above: Performed By: #### L 300.4310, L300.3900 #### [facility] [address] [place], [address] Carbon dioxide, total [Moles /volume] in Central venous bloodOrdered By: Gonzalo Hurst on 12-28-2024 CO2 [Moles/Vol] 22.1 mmol/L 21.0-32.0 [facility] Cardiac rehabilitation repor tOrdered By: Naveen Johnson on 12-28-2024 Study report [facility] Cardiac Rehab [address] [place] [address] CR: Phase I Assessment MR#: [id number] Acct: [id number] Name: GIOVANNI LOMAX Rep #:[id number] : 1955 69 From: Naveen Johnson PCP: Dr. Leonidas Traore MD DOS: Patient Communication Patient Information Former Patient:: Phase I PHII Cardiac Rehab Discussed with Patient:: Yes Guide to Cardiac Rehab Given to Patient:: Yes Cardiac Rehab Facility Choice List Given to Patient:: Yes Communication to Cardiac Rehab Choice Program [facility] CR PHII:: Communication Given to CR Copy Writer:: Tony Fernandez Phase II Cardiac Rehab:: Yes Sessions:: 36 sessions - 3 days/wk, 12 weeks Cardiac Rehabilitation Info Program Information Cardiac Rehabilitation Program Information: Cardiac Rehab The cardiac rehab team at [facility] consists of highly skilled exercise physiologists, nurses, respiratory therapists and physicians working together with you. Our purpose is to help you have a full recovery and achieve the goals you set for yourself. Over the years many of our patients have returned to activities they assumed they would never do again! We can help restore your confidence and motivation to make lifestyle changes that can have a significant impact on your health and quality of life! We can help answer questions and concerns you may have about exercise, lifestyle, medications, diet, stress and anxiety which are common following a hospitalization. WE monitor ECG and vital signs during exercise and discuss your progress with you and report toyour physician(s). Cardiac Rehab is proven to help reduce readmissions, improve functional capacityand lower recurrence of problems with your heart. Our Cardiac Rehab program is Certified by the [place] [employer]-Vascular and Pulmonary [employer] (AACVPR) and Accredited by the [employer] through our [facility]. You can contact us at . We invite you to call us with your questions or to get started in our program. If you have other questions or concerns be sure to ask your physician/provider during your follow-up visit. WE look forward to seeing you! 12/28/24 1228 Date Naveen W Alex Outcome assessment reviewed. Exercise plan approved as documented. Treatment plan and goals support patient needs/abilities. Continue with current plan. I certify the patient demonstrates improvement and remains willing and capable of participation. the patient continues to benefit from cardiac rehab services/training. The patient may continue at current intensity, endurance and modality and progress per protocol. Cosigner Signature: Date CC: ~ Signed [facility] Chest PA and Lateralon 12-28 Chest PA and Lateral [facility] Imaging Services [address] [place] [address] Chest PA and Lateral MR#: [id number] Acct: [id number] Name: GIOVANNI LOMAX Rep #: [id number] : 1955 F 69 From: Mars rivas MD PCP: Dr. Leonidas Traore MD Status: REG ER Study: Chest PA and Lateral Date of Exam: 12/28/24 Exam# [id number] Ordering Dr: Gonzalo Hurst DO PROCEDURE: CHEST PA AND LATERAL 12/28/2024 REASON FOR EXAM: CHEST PAIN TECHNIQUE: CHEST PA AND LATERAL COMPARISON: 11/10/2023. FINDINGS: The lungs are expanded. There is no demonstrated parenchymal abnormality. There is no demonstrated pleural abnormality. Enlarged cardiac silhouette. Normal mediastinum and alex. Normal visualized pulmonary arteries. Atheromatous plaques of the visualized aortic arch and descending thoracic aorta. Diffuse spondylosis of the visualized thoracic spine. Normal visualized ribs, clavicles. Degenerative joint disease. There is no demonstrated abnormality of the visualized soft tissue structures of the upper abdomen. Unremarkable left humeral metallic plate and screws. RAD/Chest PA and Lateral IMPRESSION: No evidence for acute abnormality. Reading Location: [place] [address] CC: Dr. 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 Leonidas Traore MD Status:ADM IN Location: [place] [address] Assessment Plan Assessment/Plan (1) Non-ST elevated myocardial infarction (non-STEMI): PLAN: Patient's presenting complaints are very similar if not identical to what she presented with prior to her stenting procedure. The patient's ECG does not show any acute ischemic changes although she is pain-free at the time it was performed. Her enzymes are mildly positive at 105 and 115. Her blood pressure was significantly elevated in the 220 range when she first presented it is now down to 180. She did not get relief with sublingual nitro in her home environment although were not certain of the age of her nitro pills. Given the patient's known coronary disease status post stenting of the right coronary artery on 2 separate occasions latest was in 2019. Would recommend the patient proceed with left heart catheterization to definitively rule out progressive coronary artery disease. The patient does continue to smoke her blood pressure has been consistently elevated and difficult to control and we do not know her cholesterol level. She is on intensive statin therapy. She is also on Plavix and aspirin. The cardiac catheterization procedure risk/benefit and alternatives were explained to the patient in detail she voiced understanding and agrees to proceed. The patient is not allergic to iodine. She has been on her Plavix and aspirin. (2) COPD (chronic obstructive pulmonary disease): QUALIFIERS: COPD type: unspecified COPD Qualified Code(s): J44.9 - Chronic obstructive pulmonary disease, unspecified PLAN: Patient carries a history of COPD and has been followed by [facility] at [facility] [facility]. The patient has not been seen in the [facility] since 2022. PLAN: Plan 1. Recommend urgent left heart catheterization. 2. Further recommendations pending the outcome of the catheterization. HPI Consult Data Date of Consult: 12/28/24 HPI Narrative Reason for Consultation: Chest pain and known coronary artery disease HPI Narrative: GIOVANNI LOMAX, is a 69 F who presents with a history of chest discomfort radiating up into her shoulders that started last evening and reminds her of the symptoms she had prior to her stenting procedure. The patient's right coronary has been stented twice. The last time was January 2019. Her mid right coronary was stented and 5 minutes after completing the case her proximal right coronary was spontaneously occluded and was reintervened upon with a second stent. The patient's symptoms were very similar to what she is experiencing in her home that led up to her coming to the ER today. Her ECG is normal however her troponins are positive at 105 up to 115. The patient does have a history of dyspnea on exertion which is chronic and she continues to smoke. Patient also has a history of significant hypertension her blood pressure was 220 when she arrived in the emergency department is now down to 180. We are instituting IV nitroglycerin to better control her blood pressure she is pain-free at this point in time. [facility] Medical History (Updated 12/28/24 @ 10:[address] Alonzo Blackburn MD) Carotid artery disease Urinary frequency History of TIA (transient ischemic attack) Nausea Chronic left hip pain Left shoulder pain Anxiety Smoker Myocardial infarct Health care maintenance Colon cancer screening Flu vaccine need Patient noncompliance Tobacco abuse Anxiety and depression Left hand pain History of fracture of clavicle Fracture Depression Chronic pain COPD (chronic obstructive pulmonary disease) Osteoporosis Pre-op chest exam Hyperlipidemia Atherosclerotic heart disease of [place] coronary artery without angina pectoris ST elevation myocardial infarction (STEMI) Hypertension Home Medications ???Medication ???Instructions ???Recorded ???Last Taken ???Type clopidogrel 75 mg tablet (Plavix) 75 mg PO DAILY antiplatelet #90 1 Unknown Rx tabs hydrochlorothiazide 25 mg tablet 25 mg PO DAILY BP #90 tabs 3 Unknown Rx losartan 100 mg tablet 100 mg PO DAILY dose increase (BP) 04/29/23 Unknown Rx #90 tabs metoprolol tartrate 25 mg tablet 25 mg PO BID BP #180 tabs 04/29/23 Unknown Rx nitroglycerin 0.4 mg sublingual 0.4 mg sublingual Q5M PRN Chest Unknown Rx tablet Pain #25 tabs amlodipine 10 mg tablet 10 mg PO DAILY BP #90 tabs 3 Unknown Rx aspirin 81 mg tablet,delayed 81 mg PO DAILY@0800 90 days #90 Unknown Rx release tabs atorvastatin 80 mg table (more content not included)... Normal [facility] D-Dimer Quantitative (DVT/PE )on 12-28-2024 D-DIMER QUANT 0.53 FEU/ug/m Invalid Interpretation Code 0.27-0.49 [facility] Comment on above: Result Comment: D-Di audrey ELEVATED (>0.49): Additional studies and clinical assessments are indicated to conclude diagnosis of: Deep Vein Thrombosis (DVT) or Pulmonary Embolism (PE) CRITICAL VALUE CALLED TO 12/28/24 0620 Marga Roca. RESULTS READ BACK BY TERRI. Performed By: #### L 300.4310, L300.3900 #### [facility] [address] [place], [place], [address] Echo Completeon 12-28-2024 Echo [facility] [address] [place] [address] Echo Complete 12/28/24 1549 MR#: [id number] Acct: [id number] Name: GIOVANNI LOMAX Rep #: [id number] : 1955 69 From: Tony Fernandez MD Attending Dr: Dr. Temi Banda MD Status: DIS IN Ordering Dr: Temi Banda MD Date: 12/28/24 Location: U Sex: F C Admitted: 12/28/24 Reason For Study Reason For Study: Chest pain Procedure This was a 2D Doppler, Color Flow transthoracic echocardiogram. Exam performed portable in patient room. Left Ventricle Normal LV size. The estimated ejection fraction is 65 %. No evidence for diastolic dysfunction. No regional wall motion abnormalities noted. Right Ventricle Normal RV size. Normal systolic function. Atria The left and right atria are normal. No doppler evidence for ASD. Mitral Valve There is moderate mitral annular calcification. There is no mitral valve stenosis. No mitral valve insufficiency. Tricuspid Valve There is no tricuspid stenosis. Unable to estimate RV systolic pressure due to inadequate jet, pulmonary artery pressure probably normal. Aortic Valve Trisinus/trileaflet aortic valve. There is no aortic stenosis. No aortic valve insufficiency. Pulmonic Valve There is no pulmonic valvular stenosis. No pulmonic valve insufficiency. Great Vessels Normal sized aortic root. Pericardium/Pleural No pericardial effusion. MMode/2D Measurements Calculations RVDd: 3.1 cm LVOT diam: 2.0 cm Ao root diam: 3.6 cm LVOT area: 3.3 cm2 LAV(MOD-bp): 36.0 ml LVAd ap4: 23.6 cm2 LVAd ap2: 21.8 cm2 LAV(MOD-bp) Indexed: 18.9 ml/m2 LVLd ap4: 8.1 cm LVLd ap2: 7.9 cm LAV(MOD-sp2): 38.3 ml EDV(MOD-sp4): 58.2 ml EDV(MOD-sp2): 50.9 ml LAV(MOD-sp4): 27.3 ml EDV(sp4-el): 58.4 ml EDV(sp2-el): 50.7 ml LVAs ap4: 12.6 cm2 LVAs ap2: 11.7 cm2 LVLs ap4: 6.9 cm LVLs ap2: 7.0 cm ESV(MOD-sp4): 20.6 ml ESV(MOD-sp2): 18.2 ml ESV(sp4-el): 19.3 ml ESV(sp2-el): 16.6 ml EF(MOD-sp4): 64.6 % EF(MOD-sp2): 64.2 % EF(sp4-el): 66.9 % SV(MOD-sp4): 37.6 ml SV(MOD-sp2): 32.7 ml SV(sp4-el): 39.1 ml SI(MOD-sp4): 19.7 ml/m2 SI(MOD-sp2): 17.2 ml/m2 LA dimension(2D): 3.2 cm LA A4 area: 12.2 cm2 RA A4 area: 11.5 cm2 TAPSE: 2.0 cm Doppler Measurements Calculations MV E max aleks: 84.5 cm/sec Lat Peak E' Aleks: 8.6 cm/sec Med Peak E' Aleks: 7.2 cm/sec MV A max aleks: 108.3 cm/sec E/E' lat: 9.9 E/E' med: 11.8 MV E/A: 0.78 Ao V2 max: 171.8 cm/sec LV V1 max: 120.1 cm/sec SV(LVOT): 86.5 ml Ao max P.8 mmHg LV V1 max P.8 mmHg Ao V2 mean: 111.8 cm/sec LV V1 mean P.3 mmHg Ao mean P.8 mmHg LV V1 mean: 85.1 cm/sec Ao V2 VTI: 35.3 cm LV V1 VTI: 26.2 cm AV (velocity ratio): 0.74 BROOK(I,D): 2.5 cm2 BROOK(V,D): 2.3 cm2 PA V2 max: 92.3 cm/sec ECHO/Echo Complete Interpretation Summary The estimated ejection fraction is 65 %. No evidence for diastolic dysfunction. Ordering Physician: Temi Banda Referring Physician: Leonidas Traore Performed By: Azalea Wang RDCS 12/29/24 1630 Date Tony Fernandez MD CC: Dr. Leonidas Traore MD; Dr. Temi Banda MD Date Dictated: 12/28/24 1549 Date Transcribed: 12/29/24 [address] Teacher: Signed Normal [facility] Emergency Department Summary on 12-28-2024 Emergency Department Summary [facility] Medical Records Department [address] [place] [address] Emergency Department Summary 12/28/24 MR#: [id number] Acct: [id number] Name: GIOVANNI LOMAX Rep #: [id number] : 1955 69 From: Gonzalo Hurst DO PCP: Dr. Leonidas Traore MD Status:REG ER Location: ED ADDENDUM by Dr. Caleb Walls MD on 12/28/24 at 0939 Patient was endorsed to me by Dr. Gonzalo Hurst to check a second troponin on this patient that was having chest pain with history of coronary artery disease and stenting. She also has history of malignant hypertension. I reviewed her EKG as well as her initial troponin which was elevated at 102. Her repeat troponin is 116. She remains pain-free. Initially, it was reported that she wanted to sign out AGAINST MEDICAL ADVICE. However, after discussion with the patient and her , she is agreeable to staying. I discussed the patient with Dr. Temi Banda and started the patient on heparin. Dr. Blackburn was made aware patient's elevated troponin and admission. Disposition is admitted to the PCU in stable condition. 12/28/24 0939 Cosigner Signature (if applicable): cc: Dr. Leonidas Traore MD * Signed HPI History of Present Illness Chief Complaint: Chest Pain Informant: patient and spouse/S.O. Narrative Narrative: Patient is a 69-year-old female with past medical history COPD coronary artery disease 2 previous STEMI's with last stent placement in 2019 and malignant hypertension. She states that despite taking her medication her blood pressure is typically 200/100. She states that last night she went to bed normally and then awoke with a vague discomfort in her mid to right sided chest that she also felt in between her shoulder blades. She states there was no associated nausea vomiting or diaphoresis. She reports her shortness of breath is at baseline. She states that the symptoms were similar to her previous ID but also different. She reports she took aspirin and nitro at home without symptom improvement but as she had concerned that the symptoms were cardiac in nature she presents for evaluation [facility] Medical History Carotid artery disease Urinary frequency [...] chest exam Hyperlipidemia Atherosclerotic heart disease of [place] coronary artery without angina pectoris ST elevation myocardial infarction (STEMI) Hypertension Home Medications ???Medication ???Instructions ???Recorded ???Last Taken ???Type clopidogrel 75 mg tablet (Plavix) 75 mg PO DAILY antiplatelet #90 1 Unknown Rx tabs hydrochlorothiazide 25 mg tablet 25 mg PO DAILY BP #90 tabs 3 Unknown Rx losartan 100 mg tablet 100 mg PO DAILY dose increase (BP) 04/29/23 Unknown Rx #90 tabs metoprolol tartrate 25 mg tablet 25 mg PO BID BP #180 tabs 04/29/23 Unknown Rx nitroglycerin 0.4 mg sublingual 0.4 mg sublingual Q5M PRN Chest Unknown Rx tablet Pain #25 tabs amlodipine 10 mg tablet 10 mg PO DAILY BP #90 tabs 3 Unknown Rx aspirin 81 mg tablet,delayed 81 mg PO DAILY@0800 90 days #90 Unknown Rx release tabs atorvastatin 80 mg tablet 80 mg PO QHS 90 days #90 tabs 05/0 10/01 Unknown Rx denosumab 60 mg/mL subcutaneous 60 mg subcut [id number] #1 mL Unknown Rx syringe (Prolia) albuterol sulfate 90 mcg/actuation 1 - 2 puff inhalation Q6H PRN [place] N 02/29/24 Unknown Rx aerosol inhaler Sob /Or Wheezing #8.5 grams fluticasone fur. 100 mcg-umeclid 1 inh inhalation Q24H 3 months #60 09/25/24 Unknown Rx 62.5 mcg-vilant 25 mcg ea inhalat.powder (Trelegy Ellipta) pramipexole 1.5 mg tablet 1.5 mg PO QHS #30 tabs 10/02/24 Un known Rx Allergy/AdvReac Type Severity Reaction Status Date / Time No Known Allergies Allergy Verified 12/28/24 05:24 Family History Father , 52 Myocardial infarction Heart disease Hyperlipemia Brother Myocardial infarction CAD (coronary artery disease) CABG and stents Mother Arthritis Depression Osteoporosis Seizures Son Suicide Depression Other Cancer Surgical History History of tonsillectomy History of oophorectomy History of hysterectomy History of shoulder surgery Stented coronary (more content not included)... Normal [facility] Eosinophil percentageOrdered By: Gonzalo Hurst on 12-28-2024 Eosinophils/100 WBC (Bld) 0.9 % 0-5 [facility] Erythrocyte distribution wid th ratioOrdered By: Gonzalo Hurst on 12-28-2024 Erythrocyte distribution width (RBC) [Ratio] 13.9 % 11.6-14.6 [facility] Erythrocyte distribution wid th standard deviationOrdered By: Gonzalo Hurst on 12-28-2024 Erythrocyte distribution width (RBC) [Ratio] 44.6 fl High 35.1-43.9 [facility] Glomerular filtration rate ( GFR) estimation/1.73 sq m using serum, plasma, or whole bOrdered By: Gonzalo Hurst on 12-28-2024 GFR/1.73 sq M.predicted among non-blacks MDRD (S/P/Bld) [Vol rate/Area] 94 mL/min/{1.73_m2} >60 [facility] Comment on above: mL/min/1.73m2 CKD-EP I Creatinine Equation (2020) H AND P Exam - [facility] 12-28-2024 H&P Exam - Hospitalist [facility] Medical Records Department [address] [place] [address] H P Exam - Hospitalist 12/28/24 1009 MR#: [id number] Acct: [id number] Name: GIOVANNI LOMAX Rep #: [id number] : 1955 69 From: Temi Banda MD PCP: Dr. Leonidas Traore MD Status:REG ER Location: ED HPI - General General Date of Admission: 12/28/24 Date of Service: 12/28/24 Chief Complaint: Chest pain HPI Narrative GIOVANNI LOMAX, is a 69 F with a history of coronary artery disease with 2 previous stents, hypertension, COPD, tobacco use who presented [facility] ED 12/27/2024 due to chest pain. In the ED patient did initially have a blood pressure of 225/106 with downtrend into 180s, heart rate of 88, respiratory rate 16 and 97% on room air. EKG with no overt ischemic changes but initial troponin 102 with repeat of 116, patient placed on heparin drip and hospitalist contacted for admission. Patient evaluated at bedside and reports she had been in her usual health until last night when she had some nausea, she went to bed and woke up with burning in the center of her chest that radiated between her shoulder blades. The pain in her back was similar to previous heart attacks prompting her to come to the ED. Patient currently has a little bit of a headache but reports not presently having the pain in the front of her chest or nausea. Denies any other new or acute complaints [facility] Medical History Carotid artery disease Urinary frequency [...] chest exam Hyperlipidemia Atherosclerotic heart disease of [place] coronary artery without angina pectoris ST elevation myocardial infarction (STEMI) Hypertension Home Medications ???Medication ???Instructions ???Recorded ???Last Taken ???Type clopidogrel 75 mg tablet (Plavix) 75 mg PO DAILY antiplatelet #90 1 Unknown Rx tabs hydrochlorothiazide 25 mg tablet 25 mg PO DAILY BP #90 tabs 3 Unknown Rx losartan 100 mg tablet 100 mg PO DAILY dose increase (BP) 04/29/23 Unknown Rx #90 tabs metoprolol tartrate 25 mg tablet 25 mg PO BID BP #180 tabs 04/29/23 Unknown Rx nitroglycerin 0.4 mg sublingual 0.4 mg sublingual Q5M PRN Chest Unknown Rx tablet Pain #25 tabs amlodipine 10 mg tablet 10 mg PO DAILY BP #90 tabs 3 Unknown Rx aspirin 81 mg tablet,delayed 81 mg PO DAILY@0800 90 days #90 Unknown Rx release tabs atorvastatin 80 mg tablet 80 mg PO QHS 90 days #90 tabs 0510/01 Unknown Rx denosumab 60 mg/mL subcutaneous 60 mg subcut [id number] #1 mL Unknown Rx syringe (Prolia) albuterol sulfate 90 mcg/actuation 1 - 2 puff inhalation Q6H PRN W[place] N 02/29/24 Unknown Rx aerosol inhaler Sob /Or Wheezing #8.5 grams fluticasone fur. 100 mcg-umeclid 1 inh inhalation Q24H 3 months #60 09/25/24 Unknown Rx 62.5 mcg-vilant 25 mcg ea inhalat.powder (Trelegy Ellipta) pramipexole 1.5 mg tablet 1.5 mg PO QHS #30 tabs 10/02/24 Un known Rx Allergy/AdvReac Type Severity Reaction Status Date / Time No Known Allergies Allergy Verified 12/28/24 05:24 Family History Father , 52 Myocardial infarction Heart disease Hyperlipemia Brother Myocardial infarction CAD (coronary artery disease) CABG and stents Mother Arthritis Depression Osteoporosis Seizures Son Suicide Depression Other Cancer Surgical History History of tonsillectomy History of oophorectomy History of hysterectomy History of shoulder surgery Stented coronary artery (01/10/19) Social History housing: house Smoking Status: Current every day smoker tobacco type: cigarettes Tobacco: How many years used: 50 alcohol intake: current alcohol intake frequency: holidays/special occasions only Alcohol type: wine substance use type: marijuana caffeine: Yes Type: coffee Number of servings: 3 what type of physical activity do you participate in: none ROS ROS Narrative General: Denies fever/chills HENT: Little bit of a headache, denies stuffy nose, denies sore throat EYES: Denies changes in vision Resp: Denies any new cough, does have some baseline shortness of breath but this is unchanged Car (more content not included)... Normal [facility] Hematocrit Auto (Bld) [Volum e fraction]Ordered By: Gonzalo Hurst on 12-28-2024 Hematocrit (Bld) [Volume fraction] 44.3 % 37-47 [facility] Hemoglobin measurementOrdere d By: Gonzalo Hurst on 12-28-2024 Hemoglobin (Bld) [Mass/Vol] 14.6 g/dL 12.0-15.0 [facility] Immature granulocytes/100 WB C Auto (Bld)Ordered By: Gonzalobowen Hurst on 12-28-2024 Immature granulocytes/100 WBC (Bld) 0.400 % 0.0-0.9 [facility] Comment on above: IG% - Immature Granu locytes (promyelocytes, myelocytes and metamyelocytes) > 1% indicates that a LEFT SHIFT is Present. International normalized rat io (INR) calculationOrdered By: Caleb Walls on 12-28-2024 INR Coag (Bld) [Relative time] 0.9 {INR} [facility] L499.0042on 12-28-2024 Trop T High Sen 116 ng/L Invalid Interpretation Code <=14 [facility] Comment on above: Result Comment: Crit ical Result(s) Called at: 12/28/2024-09:01 by: Bj Holden to Adriana Bishop??Results read back by same. Performed By: #### L 499.0042 #### [facility] [address] [place], [address] L501.4021on 12-28-2024 Trop T High Sen 102 ng/L Invalid Interpretation Code <=14 [facility] Comment on above: Result Comment: Bessiet ical Result(s) Called at: 0701 by: SAVANNA UGALDE TO PRINCE ARNOLD.??Results read back by same. Performed By: #### L 501.4021 #### [facility] [address] [place], [address] L503.7505on 12-28-2024 Natriuretic peptide B (Bld) [Mass/Vol] 174 pg/mL Normal <=900 [facility] Comment on above: Result Comment: Hear t Failure Unlikely: < 300 pg/mL Heart Failure Likely < 50 Years: > 450 pg/mL 50-75 Years: > 900 pg/mL >75 Years: > 1800 pg/mL Performed By: #### L 300.4310, L300.3900 #### [facility] [address] [place], [address] Laboratory - Chemistry and C hemistry - challengeOrdered By: Gonzalo Hurst on 12-28-2024 AST [Catalytic activity/Vol] 20 U/L <32 [facility] Lipaseon 12-28-2024 Lipase [Catalytic activity/Vol] 29 U/L Normal 13-75 [facility] Comment on above: Result Comment: Margarita ferris note: LIPASE revised reference range effective 22. New Lipase methodology. Expected to produce lower values than the previous assay method. NEW Reference Range: 13 - 75 U/L Performed By: #### L 300.4310, L300.3900 #### [facility] [address] [place], [address] Lipase measurementOrdered By : Gonzalo Hurst on 12-28-2024 Lipase [Catalytic activity/Vol] 29 U/L 13-75 [facility] Comment on above: Please note:LIPASE r evised reference range effective 22. New Lipase methodology. Expected to produce lower values than the previous assay method. NEW Reference Range: 13 - 75 U/L Liver Profileon 12-28-2024 Albumin [Mass/Vol] 4.1 g/dL Normal 3.4-4.8 [facility] Comment on above: Performed By: #### L 300.4310, L300.3900 #### [facility] [address] [place], [address] ALK PHOS 68 U/L Normal 35-104 [facility] Comment on above: Performed By: #### L 300.4310, L300.3900 #### [facility] [address] [place], [address] ALT [Catalytic activity/Vol] 16 U/L Normal <=34 [facility] Comment on above: Performed By: #### L 300.4310, L300.3900 #### [facility] [address] [place], [address] AST [Catalytic activity/Vol] 20 U/L Normal <=31 [facility] Comment on above: Performed By: #### L 300.4310, L300.3900 #### [facility] [address] [place], [address] Bilirubin [Mass/Vol] 0.38 mg/dL Normal 0.00-1.30 [facility] Comment on above: Performed By: #### L 300.4310, L300.3900 #### [facility] [address] [place], [address] Bilirubin.direct [Mass/Vol] 0.15 mg/dL Normal 0.00-0.30 [facility] Comment on above: Performed By: #### L 300.4310, L300.3900 #### [facility] [address] [place], [address] Globulin (S) [Mass/Vol] 3.6 g/dL Normal 2.2-4.2 [facility] Comment on above: Performed By: #### L 300.4310, L300.3900 #### [facility] [address] [place], [place], [address] T PROT 7.7 g/dL Normal 5.9-8.4 [facility] Comment on above: Performed By: #### L 300.4310, L300.3900 #### [facility] [address] [place], [place], [id number] MCV (mean corpuscular volume ) determinationOrdered By: Gonzalo Hurst on 12-28-2024 MCV (RBC) [Entitic vol] 87.7 fL 81-99 [facility] Mean corpuscular hemoglobin (MCH) determinationOrdered By: Gonzalo Hurst on 12-28-2024 MCH (RBC) [Entitic mass] 28.9 pg 27.0-32.0 [facility] Mean corpuscular hemoglobin concentration (MCHC) determinationOrdered By: Gonzalo Hurst on 12-28-2024 MCHC (RBC) [Mass/Vol] 33.0 g/dL 32-36 [facility] Mean platelet volume determi nationOrdered By: Gonzalo Hurst on 12-28-2024 Platelet mean volume (Bld) [Entitic vol] 10.4 fL 6.2-12.0 [facility] Monocyte percentageOrdered B y: Gonzalo Hurst on 12-28-2024 Monocytes/100 WBC (Bld) 4.8 % 0-10 [facility] Natriuretic peptide.B prohor polo N-Terminal [Mass/volume] in Serum or PlasmaOrdered By: Gonzalo Hurst on 12-28-2024 Natriuretic peptide.B prohormone N-Terminal [Mass/Vol] 174 pg/mL <900 [facility] Comment on above: Heart Failure Unlike ly: < 300 pg/mLHeart Failure Likely< 50 Years: > 450 pg/mL50-75 Years: > 900 pg/mL>75 Years: > 1800 pg/mL Neutrophil percentageOrdered By: Gonzalo Hurst on 12-28-2024 Neutrophils/100 WBC (Bld) 71.1 % High 47-70 [facility] Nucleated red blood cell per centageOrdered By: Gonzalo Hurst on 12-28-2024 Nucleated RBC/100 WBC (Bld) [Ratio] 0 % 0-5 [facility] Partial Thromboplast Timeon 12-28-2024 aPTT Coag (Bld) [Time] 28.6 s Normal 24.1-36.2 [facility] Comment on above: Performed By: #### L 300.4310, L300.3900 #### [facility] [address] [place], [address] Platelet countOrdered By: Rebecca Hurst on 12-28-2024 Platelets (Bld) [#/Vol] 344 10*3/uL 150-450 [facility] Potassium measurement (mass/ volume)Ordered By: Gonzalo Hurst on 12-28-2024 Potassium (Unsp spec) [Mass/Vol] 4.1 mmol/L 3.3-5.1 [facility] Prothrombin Time w/INRon INR Coag (PPP) [Relative time] 0.9 {INR} Normal [facility] Comment on above: Performed By: #### L 300.4310, L300.3900 #### [facility] [address] [place], [address] PT Coag (PPP) [Time] 12.8 s Normal 11.7-14.9 [facility] Comment on above: Performed By: #### L 300.4310, L300.3900 #### [facility] [address] [place], [address] Prothrombin timeOrdered By: Caleb Walls on 12-28-2024 PT Coag (PPP) [Time] 12.8 s 11.7-14.9 [facility] RBC Auto (Bld) [#/Vol]Ordere d By: Gonzalo Hurst on 12-28-2024 RBC (Bld) [#/Vol] 5.05 10*6/uL 4.2-5.4 [facility] Serum creatinine measurement (mass/volume)Ordered By: Gonzalo Hurst on 12-28-2024 Creatinine [Mass/Vol] 0.71 mg/dL 0.70-1.20 [facility] Serum globulin measurementOr dered By: Gonzalo Hurst on 12-28-2024 Globulin (S) [Mass/Vol] 3.6 g/dL 2.2-4.2 [facility] Serum glucose measurement (m ass/volume)Ordered By: Gonzalo Hurst on 12-28-2024 Glucose [Mass/Vol] 131 mg/dL High 70-99 [facility] Serum or plasma alanine fletcher otransferase (ALT) measurementOrdered By: Gonzalo Hurst on 12-28-2024 ALT [Catalytic activity/Vol] 16 U/L <35 [facility] Serum or plasma albumin az urement (mass/volume)Ordered By: Gonzalo Hurst on 12-28-2024 Albumin [Mass/Vol] 4.1 g/dL 3.4-4.8 [facility] Serum or plasma alkaline ori sphatase measurementOrdered By: Gonzalo Hurst on 12-28-2024 ALP [Catalytic activity/Vol] 68 U/L 35-104 [facility] Serum or plasma calcium za urement (mass/volume)Ordered By: Gonzalo Hurst on 12-28-2024 Calcium [Mass/Vol] 8.9 mg/dL 7.6-11.0 [facility] Serum or plasma urea nitroge n measurement (mass/volume)Ordered By: Gonzalo Hurst on 12-28-2024 Urea nitrogen [Mass/Vol] 18 mg/dL 4-19 [facility] Sodium levelOrdered By: Dereje Hurst on 12-28-2024 Sodium [Moles/Vol] 137 mmol/L 133-145 [facility] Total proteinOrdered By: Hasmukh Hurst on 12-28-2024 Protein [Mass/Vol] 7.7 g/dL 5.9-8.4 [facility] Troponin T.cardiac [Mass/vol ume] in Serum or Plasma by High sensitivity methodOrdered By: Gonzalo Hurst on 12-28-2024 Troponin T.cardiac High sensitivity method [Mass/Vol] 116 ng/L High <14 [facility] Comment on above: Critical Result(s) C alled at: 12/28/2024-09:01 by: Bj Holden to Adriana Bishop Results read back by same. Troponin T.cardiac High sensitivity method [Mass/Vol] 102 ng/L High <14 [facility] Comment on above: Critical Result(s) C alled at: 0701 by: SAVANNA UGALDE TO PRINCE ARNOLD. Results read back by same. White blood cell (WBC) count Ordered By: Gonzalo Hurst on 12-28-2024 WBC (Bld) [#/Vol] 12.7 10*3/uL High 4.4-11.0 [facility] Oncology Visit Reporton Oncology Visit Report [facility] [address] [place] [address] OFFICE VISIT Date of Service: 11/14/24 1248 MR#: [id number] Acct: [id number] Name: GIOVANNI LOMAX Rep #: [id number] : 1955 From: Bárbara López Age/Sex: 69/F [place] [facility]: Signed Unable Date 11/14/24 Patient: GIOVANNI LOMAX : 1955 Dear [place], We recently received a referral from you [...] contact the lung cancer screening program at [facility] at with any further questions or concerns. Sincerely, STEFFANIE Mercer, EDWINP 11/14/24 1249 Date Bárbara Coburn NP, NP-C Cosigner Signature: Date (if applicable) CC: Dr. Leonidas Traore MD [facility] MR/BMS.Janny 09-12-2024 MR/BMS.[facility] [address] [place] [address] OFFICE VISIT Date of Service: 09/12/24 MR#: [id number] Acct: [id number] Name: GIOVANNI LOMAX Rep #: [id number] : 1955 Provider: KAILEY Hawthorne Age/Sex: 69/F Location: [facility] Status: Signed Intake Vital Signs 08/08/24 13:38 [...] chest exam Hyperlipidemia Atherosclerotic heart disease of [place] coronary artery without angina pectoris ST elevation [...] PCP Dr. Traore. She was admitted to [facility] for stroke workup in November 2023 [...] No asthm (more content not included)... Normal [facility] Urine Cultureon 09-02-2024 [facility] Presumptive E. coli [place] Count >100,000 Presumptive E. coli: REACTION Ampicillin [...] TMP SMX Islt RON <=20 S Normal [facility] Comment on above: Performed By: #### M 100.2200, L400.0001 #### [facility] [address] [place], [address] Bilirubin Test strip Ql (U)O rdered By: Katie Washington on 08-31-2024 Bilirubin Ql (U) Negative Negative [facility] Epithelial cells.squamous LM Ql (Urine sed)Ordered By: Katie Washington on 08-31-2024 Epithelial cells.squamous LM.HPF (Urine sed) [#/Area] 0 /[HPF] 5-10 [facility] Glucose Ql (U)Ordered By: Hamilton Washington on 08-31-2024 Urine Glucose (UA) Normal mg/dl Normal [facility] Ketones Test strip Ql (U)Ord ered By: Katie Washington on 08-31-2024 Ketones Ql (U) Negative Negative [facility] Microscopic analysis of urin e for red blood cells (RBC)Ordered By: Katie Washington on 08-31-2024 Microscopic analysis of urine for red blood cells (RBC) 5-10 SEEN /hpf 0-5 [facility] Urine RBC 5-10 SEEN /hpf 0-5 [facility] Mucus LM Ql (Urine sed)Order ed By: Katie Washington on 08-31-2024 Mucus Ql (Urine sed) 0 SEEN /hpf [facility] Nitrite Test strip Ql (U)Ord ered By: Katie Washington on 08-31-2024 Nitrite Ql (U) Positive High Negative [facility] Office Visit Reporton 2024 Office Visit Report [facility] [address] [place] [address] OFFICE VISIT Date of Service: 08/31/24 MR#: [id number] Acct: [id number] Patient: GIOVANNI LOMAX Rep #: [id number] : 1955 Provider: DWAINE NURSE Age/Sex: 69/F Location: [facility] [place] Status: Signed Intake Vital Signs 08/08/24 13:38 [...] Performing Provider: Leonidas Traore MD Performing Location: [facility] Administered by: Chelsie Steel on 08/31/24 13:13 Dose Route Admin Location Dispensed Lot Number Expiration Date NDC Man ufacturer 60 mg subcut Right arm 1 mL [id number] 11/07/26 91922-535-27 AMGEN Comments: Patient here for initial Prolia [...] Date (if applicable) CC: KAILEY Antony Normal [facility] Protein Test strip Ql (U)Ord ered By: Katie Washington on 08-31-2024 Protein Ql (U) 30 mg/dl High Negative [facility] Squamous epithelial cells de tection in urine sediment by light microscopyOrdered By: Katie Washington on 08-31-2024 Epithelial cells.squamous LM Ql (Urine sed) 0-5 SEEN /hpf 5-10 [facility] Urinalysis, Completeon 08-31 BACTERIA 2+ /hpf Normal None Seen [facility] Comment on above: Order Comment: LEONELA CTOR TO SPECIFY Performed By: #### M 100.2200, L400.0001 #### [facility] [address] [place], [address] EPI,SQUAMOUS 0-5 SEEN Normal 5-10 [facility] Comment on above: Order Comment: LEONELA CTOR TO SPECIFY Performed By: #### M 100.2200, L400.0001 #### [facility] [address] [place], [address] RBC 5-10 SEEN Normal 0-5 [facility] Comment on above: Order Comment: LEONELA CTOR TO SPECIFY Performed By: #### M 100.2200, L400.0001 #### [facility] [address] [place], [address] WBC 25-50 SEEN Normal 0-5 [facility] Comment on above: Order Comment: LEONELA CTOR TO SPECIFY Performed By: #### M 100.2200, L400.0001 #### [facility] [address] [place], [address] Mucus Ql (Urine sed) 0 SEEN Normal [facility] Comment on above: Order Comment: LEONELA CTOR TO SPECIFY Performed By: #### M 100.2200, L400.0001 #### [facility] [address] [place], [address] Urine blood detectionOrdered By: Katie Washington on 08-31-2024 Urine Occult Blood 25 /ul High Negative [facility] Urine clarityOrdered By: Justen Washington on 08-31-2024 Clarity (U) Sl. Cloudy Clear [facility] Urine color determinationOrd ered By: Katie Washington on 08-31-2024 Color (U) Yellow Yellow [facility] Urine cultureOrdered By: Justen Washington on 08-31-2024 Bacteria identified Cx Nom (U) Presumptive E. coli Abnormal [facility] Bacteria identified Cx Nom (U) Presumptive E. coli Abnormal [facility] Urine glucose detectionOrder ed By: Katie Washington on 08-31-2024 Glucose Ql (U) Normal mg/dl Normal [facility] Urine leukocyte esterase det ection by dipstickOrdered By: Katie Washington on 08-31-2024 Leukocyte esterase Test strip Ql (U) 100 /ul High Negative [facility] Urine pHOrdered By: Katie tripathi on 08-31-2024 pH (U) 7.0 [pH] 5.0 - 8.0 [facility] Urine sediment bacteria coun t by microscopy (number/high power field)Ordered By: Katie Washington on 08-31-2024 Bacteria LM.HPF (Urine sed) [#/Area] 2 /[HPF] None Seen [facility] Urine specific gravity measu rementOrdered By: Katie Washington on 08-31-2024 Specific gravity (U) [Rel density] 1.010 1.002-1.030 [facility] Urine urobilinogen measureme ntOrdered By: Katie Washington on 08-31-2024 Urobilinogen Ql (U) Normal mg/dl Normal [facility] Urobilinogen Ql (U)Ordered B y: Katie Felix on 08-31-2024 Urine Urobilinogen Normal mg/dl Normal [facility] White blood cell countOrdere d By: Katie Felix on 08-31-2024 Urine WBC 25-50 SEEN /hpf 0-5 [facility] White blood cell count 25-50 SEEN /hpf 0-5 [facility] Urine Cultureon 08-10-2024 [facility] Culture exhibits no growth. Normal [facility] Comment on above: Performed By: #### L 300.4310, L300.3900 #### [facility] [address] [place], [address] Albumin to globulin ratioOrd ered By: Leonidas Traore on 08-08-2024 Albumin/Globulin [Mass ratio] 0.9 {ratio} 0.9-2.4 [facility] Bacteria LM.HPF (Urine sed) [#/Area]Ordered By: Leonidas Traore on 08-08-2024 Urine Bacteria RARE /hpf None Seen [facility] Bilirubin Test strip Ql (U)O rdered By: Leonidas Traore on 08-08-2024 Bilirubin Ql (U) Negative Negative [facility] Bilirubin, totalOrdered By: Leonidas Traore on 08-08-2024 Bilirubin [Mass/Vol] 0.40 mg/dL 0.20-1.00 [facility] Comment on above: For patients on eltr ombopag therapy, use of Dimension [place] TBIL is not recommended. Blood urea nitrogen (BUN)/cr eatinine ratioOrdered By: Leonidas Traore on 08-08-2024 Urea nitrogen/Creatinine [Mass ratio] 26.8 mg/mg High 10-20 [facility] Carbon dioxide measurementOr dered By: Leonidas Traore on 08-08-2024 CO2 [Moles/Vol] 30.0 mmol/L 21.0-32.0 [facility] Chloride measurementOrdered By: Leonidas Traore on 08-08-2024 Chloride [Moles/Vol] 102 mmol/L 98-107 [facility] Comprehensive Metabolic Prof ilon 08-08-2024 Albumin [Mass/Vol] 3.6 g/dL Normal 3.2-5.0 [facility] Comment on above: Performed By: #### L 500.4100, L500.4050 #### [facility] [address] [place], [address] Albumin/Globulin [Mass ratio] 0.9 {ratio} Normal 0.9-2.4 [facility] Comment on above: Performed By: #### L 500.4100, L500.4050 #### [facility] [address] [place], [address] ALK P 70 U/L Normal 45-117 [facility] Comment on above: Performed By: #### L 500.4100, L500.4050 #### [facility] [address] [place], [address] ALT [Catalytic activity/Vol] 26 U/L Normal 13-56 [facility] Comment on above: Performed By: #### L 500.4100, L500.4050 #### [facility] [address] [place], [address] AST [Catalytic activity/Vol] 15 U/L Normal 15-37 [facility] Comment on above: Performed By: #### L 500.4100, L500.4050 #### [facility] [address] [place], [address] Bilirubin [Mass/Vol] 0.40 mg/dL Normal 0.20-1.00 [facility] Comment on above: Result Comment: For patients on eltrombopag therapy, use of Dimension [place] TBIL is not recommended. Performed By: #### L 500.4100, L500.4050 #### [facility] [address] [place], [address] BUN/CRE 26.8 RATIO High 10-20 [facility] Comment on above: Performed By: #### L 500.4100, L500.4050 #### [facility] [address] [place], [address] CA,Total 9.4 mg/dL Normal 8.5-10.1 [facility] Comment on above: Performed By: #### L 500.4100, L500.4050 #### [facility] [address] [place], [address] Chloride [Moles/Vol] 102 mmol/L Normal 98-107 [facility] Comment on above: Performed By: #### L 500.4100, L500.4050 #### [facility] [address] [place], [address] CO2 [Moles/Vol] 30.0 mmol/L Normal 21.0-32.0 [facility] Comment on above: Performed By: #### L 500.4100, L500.4050 #### [facility] [address] [place], [address] Creatinine [Mass/Vol] 0.74 mg/dL Normal 0.55-1.02 [facility] Comment on above: Result Comment: The validity of the calculated GFR GFRAA in patients over 70 years has not been determined. Clinical correlation is essential. Performed By: #### L 500.4100, L500.4050 #### [facility] [address] [place], [address] EST GFR - AA 100 mL/min Normal >60 [facility] Comment on above: Result Comment: Afri can Swiss GFR Calc Performed By: #### L 500.4100, L500.4050 #### [facility] [address] [place], [address] GAP 7 Normal 5-15 [facility] Comment on above: Performed By: #### L 500.4100, L500.4050 #### [facility] [address] [place], [address] GFR/1.73 sq M.predicted among non-blacks MDRD (S/P/Bld) [Vol rate/Area] 82 mL/min/{1.73_m2} Normal >60 [facility] Comment on above: Result Comment: Non- GFR Calc Performed By: #### L 500.4100, L500.4050 #### [facility] [address] [place], [address] Globulin (S) [Mass/Vol] 4.1 g/dL Normal 2.2-4.2 [facility] Comment on above: Performed By: #### L 500.4100, L500.4050 #### [facility] [address] [place], [address] Glucose [Mass/Vol] 105 mg/dL Normal 74-106 [facility] Comment on above: Result Comment: Fast ing Glucose result from 100 to 125 mg/dL suggests IMPAIRED HOMEOSTASIS per A.D.A. criteria. Performed By: #### L 500.4100, L500.4050 #### [facility] [address] [place], [address] Potassium [Moles/Vol] 4.4 mmol/L Normal 3.5-5.1 [facility] Comment on above: Performed By: #### L 500.4100, L500.4050 #### [facility] [address] [place], [address] Sodium [Moles/Vol] 139 mmol/L Normal 136-145 [facility] Comment on above: Performed By: #### L 500.4100, L500.4050 #### [facility] [address] [place], [address] T PROT 7.7 g/dL Normal 6.4-8.2 [facility] Comment on above: Performed By: #### L 500.4100, L500.4050 #### [facility] [address] [place], [address] Urea nitrogen [Mass/Vol] 20 mg/dL High 7-18 [facility] Comment on above: Performed By: #### L 500.4100, L500.4050 #### [facility] [address] [place], [address] Epithelial cells.squamous LM Ql (Urine sed)Ordered By: Leonidas Traore on 08-08-2024 Epithelial cells.squamous LM.HPF (Urine sed) [#/Area] 5 /[HPF] 5-10 [facility] Estimated glomerular filtrat ion rate (GFR) AmericanOrdered By: Leonidas Traore on 08-08-2024 Estimated GFR (MDRD) Amer 100 mL/min >60 [facility] Comment on above: GFR Calc Glomerular filtration rate ( GFR) estimationOrdered By: Leonidas Traore on 08-08-2024 Estimated GFR (MDRD) Non-Af Amer 82 mL/min >60 [facility] Comment on above: Non- GFR Calc Glucose Ql (U)Ordered By: Kyung Traore on 08-08-2024 Urine Glucose (UA) Normal mg/dl Normal [facility] Glucose measurementOrdered B y: Leonidas Traore on 08-08-2024 Glucose [Mass/Vol] 105 mg/dL 74-106 [facility] Comment on above: Fasting Glucose resu lt from 100 to 125 mg/dL suggests IMPAIRED HOMEOSTASIS per A.D.A. criteria. High density lipoprotein (HD L) measurementOrdered By: Leonidas Traore on 08-08-2024 Cholesterol in HDL [Mass/Vol] 53 mg/dL >40 [facility] Comment on above: The drugs N-Acetylcy steine and Metamizole may falsely depress this assay. Reference Range HDL <40 mg/dL Low HDL Cholesterol HDL >or= 60 mg/dL High HDL Cholesterol Internal Medicine Office Vis iton 08-08-2024 Internal Medicine Office Visit [facility] [address] [place] [address] [place] [address] OFFICE VISIT Date of Service: 08/08/24 MR#: [id number] Acct: [id number] Name: GIOVANNI LOMAX Rep #: [id number] : 1955 Provider: Dr. 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 Required: No Accompanied by: Self Is patient in pain?: No Allergies No Known Allergies Allergy (Verified 08/08/24 13:35) Medications ???Medication ???Instructions ???Recorded ???Confirmed ???Type clopidogrel 75 mg tablet (Plavix) 75 mg PO DAILY antiplatelet #90 1 08/08/24 Rx tabs hydrochlorothiazide 25 mg tablet 25 mg PO DAILY BP #90 tabs 3 08/08/24 Rx losartan 100 mg tablet [...] denosumab 60 mg/mL subcutaneous 60 mg subcut [id number] #1 mL 08/08/24 Rx syringe (Prolia) pantoprazole 40 mg tablet,delayed 40 mg PO DAILY #90 tabs 12/12/23 08/08/24 Rx release albuterol sulfate 90 mcg/actuation 1 - 2 puff inhalation Q6H PRN [place] N 02/29/24 08/08/24 Rx aerosol inhaler Sob [...] chest exam Hyperlipidemia Atherosclerotic heart disease of [place] coronary artery without angina pectoris ST elevation [...] however, this improved after she started an [id number] cranberry supplement. No further concerns with burning but frequency and occasional incontinence has persisted. History of COPD, last (more content not included)... Normal [facility] Ketones Test strip Ql (U)Ord ered By: Leonidas Traore on 08-08-2024 Ketones Ql (U) Negative Negative [facility] Laboratory - Chemistry and C hemistry - challengeOrdered By: Leonidas Traore on 08-08-2024 AST [Catalytic activity/Vol] 15 U/L 15-37 [facility] Lipid Profileon 08-08-2024 Cholesterol [Mass/Vol] 248 mg/dL High 200 [facility] Comment on above: Result Comment: <200 mg/dL Desirable 200-240 mg/dL Borderline >240 mg/dL High Risk Performed By: #### L 500.4100, L500.4050 #### [facility] [address] [place], [address] Cholesterol in HDL [Mass/Vol] 53 mg/dL Normal [facility] Comment on above: Result Comment: The drugs N-Acetylcysteine and Metamizole may falsely depress this assay. Reference Range HDL <40 mg/dL Low HDL Cholesterol HDL >or= 60 mg/dL High HDL Cholesterol Performed By: #### L 500.4100, L500.4050 #### [facility] [address] [place], [address] Cholesterol in LDL [Mass/Vol] 162 mg/dL High 0-130 [facility] Comment on above: Performed By: #### L 500.4100, L500.4050 #### [facility] [address] [place], [address] Cholesterol in VLDL [Mass/Vol] 33 mg/dL Normal 5-40 [facility] Comment on above: Performed By: #### L 500.4100, L500.4050 #### [facility] [address] [place], [address] Triglyceride [Mass/Vol] 166 mg/dL Normal [facility] Comment on above: Result Comment: The drugs N-Acetylcysteine and Metamizole may falsely depress this assay. Serum Triglycerides Reference Interval Normal <150 mg/dL Borderline high 150 - 199 mg/dL High 200 - 499 mg/dL Very High > or = 500 mg/dL Performed By: #### L 500.4100, L500.4050 #### [facility] [address] [place], [address] Low density lipoprotein (LDL ) cholesterol measurementOrdered By: Leonidas Traore on 08-08-2024 Cholesterol in LDL [Mass/Vol] 162 mg/dL High 0-130 [facility] Microscopic analysis of urin e for red blood cells (RBC)Ordered By: Leonidas Traore on 08-08-2024 Urine RBC 0-5 SEEN /hpf 0-5 [facility] Mucus LM Ql (Urine sed)Order ed By: Leonidas Traore on 08-08-2024 Mucus Ql (Urine sed) 0 SEEN /hpf [facility] Nitrite Test strip Ql (U)Ord ered By: Leonidas Traore on 08-08-2024 Nitrite Ql (U) Negative Negative [facility] Potassium measurementOrdered By: Leonidas Traore on 08-08-2024 Potassium [Moles/Vol] 4.4 mmol/L 3.5-5.1 [facility] Protein Test strip Ql (U)Ord ered By: Leonidas Traore on 08-08-2024 Protein Ql (U) 15 mg/dl High Negative [facility] Serum anion gap measurementO rdered By: Leonidas Traore on 08-08-2024 Anion gap [Moles/Vol] 7 mmol/L 5-15 [facility] Serum globulin measurementOr dered By: Leonidas Tarore on 08-08-2024 Globulin (S) [Mass/Vol] 4.1 g/dL 2.2-4.2 [facility] Serum or plasma alanine fletcher otransferase (ALT) measurementOrdered By: Leonidas Traore on 08-08-2024 ALT [Catalytic activity/Vol] 26 U/L 13-56 [facility] Serum or plasma albumin za urement (mass/volume)Ordered By: Leonidas Traore on 08-08-2024 Albumin [Mass/Vol] 3.6 g/dL 3.2-5.0 [facility] Serum or plasma alkaline ori sphatase measurementOrdered By: Leonidas Traore on 08-08-2024 ALP [Catalytic activity/Vol] 70 U/L 45-117 [facility] Serum or plasma calcium za urement (mass/volume)Ordered By: Leonidas Traore 08-08-2024 Calcium [Mass/Vol] 9.4 mg/dL 8.5-10.1 [facility] Serum or plasma cholesterol measurement (mass/volume)Ordered By: Leonidas Traore on 08-08-2024 Cholesterol [Mass/Vol] 248 mg/dL High <200 [facility] Comment on above: <200 mg/dL Desirable 200-240 mg/dL Borderline >240 mg/dL High Risk Serum or plasma creatinine m easurement (mass/volume)Ordered By: Leonidas Traore on 08-08-2024 Creatinine [Mass/Vol] 0.74 mg/dL 0.55-1.02 [facility] Comment on above: The validity of the calculated GFR & GFRAA in patients over 70 years has not been determined. Clinical correlation is essential. Serum or plasma urea nitroge n measurement (mass/volume)Ordered By: Leonidas Traore on 08-08-2024 Urea nitrogen [Mass/Vol] 20 mg/dL High 7-18 [facility] Sodium levelOrdered By: Rosina Traore on 08-08-2024 Sodium [Moles/Vol] 139 mmol/L 136-145 [facility] Total proteinOrdered By: Uziel Traore on 08-08-2024 Protein [Mass/Vol] 7.7 g/dL 6.4-8.2 [facility] Transitional cells LM Ql (Ur ine sed)Ordered By: Leonidas Traore on 08-08-2024 Urine Transitional Epithelial Cells 0-5 SEEN /hpf 0-5 [facility] Triglycerides measurementOrd ered By: Leonidas Traore on 08-08-2024 Triglyceride [Mass/Vol] 166 mg/dL <199 [facility] Comment on above: The drugs N-Acetylcy steine and Metamizole may falsely depress this assay.Serum Triglycerides Reference Interval Normal <150 mg/dL Borderline high 150 - 199 mg/dL High 200 - 499 mg/dL Very High > or = 500 mg/dL Urinalysis, Completeon 08-08 BACTERIA RARE Normal None Seen [facility] Comment on above: Order Comment: LEONELA CTOR TO SPECIFY Performed By: #### L 300.4310, L300.3900 #### [facility] [address] [place], [address] EPI,SQUAMOUS 5-10 SEEN Normal 5-10 [facility] Comment on above: Order Comment: LEONELA CTOR TO SPECIFY Performed By: #### L 300.4310, L300.3900 #### [facility] [address] [place], [address] EPI,TRANSITION 0-5 SEEN Normal 0-5 [facility] Comment on above: Order Comment: LEONELA CTOR TO SPECIFY Performed By: #### L 300.4310, L300.3900 #### [facility] [address] [place], [address] RBC 0-5 SEEN Normal 0-5 [facility] Comment on above: Order Comment: LEONELA CTOR TO SPECIFY Performed By: #### L 300.4310, L300.3900 #### [facility] [address] [place], [address] WBC 0-5 SEEN Normal 0-5 [facility] Comment on above: Order Comment: LEONELA CTOR TO SPECIFY Performed By: #### L 300.4310, L300.3900 #### [facility] [address] [place], [address] Mucus Ql (Urine sed) 0 SEEN Normal [facility] Comment on above: Order Comment: LEONELA CTOR TO SPECIFY Performed By: #### L 300.4310, L300.3900 #### [facility] [address] [place], [address] Urine blood detectionOrdered By: Leonidas Traore on 08-08-2024 Urine Occult Blood 10 /ul High Negative [facility] Urine clarityOrdered By: Uziel Traore on 08-08-2024 Clarity (U) Clear Clear [facility] Urine color determinationOrd ered By: Leonidas Traore on 08-08-2024 Color (U) Yellow Yellow [facility] Urine cultureOrdered By: Uziel Traore on 08-08-2024 Bacteria identified Cx Nom (U) Culture exhibits no growth. [facility] Urine leukocyte esterase det ection by dipstickOrdered By: Leonidas Traore on 08-08-2024 Leukocyte esterase Test strip Ql (U) 25 /ul High Negative [facility] Urine pHOrdered By: Edith Traore on 08-08-2024 pH (U) 6.0 [pH] 5.0 - 8.0 [facility] Urine specific gravity measu rementOrdered By: Leonidas Traore on 08-08-2024 Specific gravity (U) [Rel density] 1.015 1.002-1.030 [facility] Urobilinogen Ql (U)Ordered B y: Leonidas Traore on 08-08-2024 Urine Urobilinogen Normal mg/dl Normal [facility] Very low density lipoprotein (VLDL) cholesterol measurementOrdered By: Leonidas Traore on 08-08-2024 VLDL Cholesterol 33 mg/dL 5-40 [facility] White blood cell countOrdere d By: Leonidas Malinjacqueline on 08-08-2024 Urine WBC 0-5 SEEN /hpf 0-5 [facility] CNOVon 06-05-2024 CNOV Office Visit (UCWSTR ) GIOVANNI LOMAX ([id number]) 1955 F Date Time Provider Department 06/05/24 1:45 PM ROXANA GARCIA [facility] During your visit today, we recorded the following information about you: Temperature Pulse Respiration Blood pressure 98.2 degrees 100/minute 18/minute 126/80 Weight 77.8 kg Roxana Garcia PA 06/05/2024 2:26 PM Signed This note was created using [employer]. Subjective Giovanni Lomax is a 69 year [...] Onset Alcohol/Drug Mother Heart Father 52 of ID, developed CAD age early 40's Alcohol/Drug Father Coronary Artery Disease Father Hypertension Father Heart Brother CABG age 46, stents and ID's placed since Cancer Maternal Aunt pancreatic Coronary [...] really alden (more content not included)... Normal [facility] XR CHEST 2V FRONTAL/LATon XR CHEST 2V FRONTAL/LAT * * *Final Report* * * DATE OF EXAM: Jun 05 2024 2:15PM WOX [id number] - XR CHEST 2V FRONTAL/LAT / PROCEDURE REASON: multiple diagnoses * * * * Physician Interpretation * * * * EXAMINATION: CHEST RADIOGRAPH (2 VIEW FRONTAL and LATERAL) CLINICAL HISTORY: Acute cough COPD with exacerbation ([facility]) MQ: [id number] EXAM DATE/TIME: 06/05/2024 2:15 PM COMPARISON: Chest x-ray on 04/10/2009 RESULT: Lines, tubes, and devices: None. Lungs and pleura: No consolidation. No lung mass. No pleural effusion. No pneumothorax. Cardiomediastinal silhouette: Normal cardiomediastinal silhouette. Bones and soft tissues: There are postoperative changes in the proximal left humerus. The spine shows degenerative changes. IMPRESSION: No acute radiographic abnormality. 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 5Th Grade Teacher: PSCB Transcribe Date/Time: Jun 05 2024 2:18P Dictated [...] shows degenerative changes. DIVISION OF RADIOLOGY Provider, [facility] - 06/05/2024 * * *Final Report* * [...] changes. IMPRESSION IMPRESSION: No acute radiographic abnormality. 5Th Grade Teacher: MARYAM Transcribe Date/Time: Jun 05 2024 2:18P Dictated by : MICHAEL BROWN MD This examination was interpreted and the report reviewed and electronically signed by: MICHAEL BROWN MD on Jun 05 2024 2:19PM EST [facility] Radiology Study observation (narrative) [facility] XR Chest PA and LateralOrder ed By: Ccf Provider on 06-05-2024 [facility] Office Visiton 12-20-2023 Follow-up visit [id number] Giovanni Lomax 1955 F Date Provider Department Center 12/20/2023 [id number] NEAL [facility] None Family History Problem Relation Age of Onset Heart disease Father Heart disease Brother Family Status - Relation Status Age at Father Brother Alive Mother Level of Service:10657 [place] OFFICE/OUTPATIENT [facility] 30 MINUTES Reason for Visit and Comments: Hip Pain [665987] - Left Arm Pain [[id number]] - Left Normal [facility] Progress Noteon 12-20-2023 Progress Note [facility] [address] [place] [address] Dept: [phone] Dept Chief Complaint Patient presents with Hip [...] pepper which is often included in the [id number] supplements. 2. Physical therapy - formal physical [...] prior to signing but minor errors in rabies inspector may have occurred. Normal [facility] XR Hip - left 3 Viewson 12-09 No fracture or dislocation of the pelvis or left hip. Mild osteoarthritis of the bilateral hips. Report Dictated on Electronically Signed By: Dae Joshi MD Electronically Signed Date/Time: 12/20/2023 7:18 PM [facility] Patient Name: GIOVANNI LOMAX : 1955 [...] lytic or blastic bony lesions are seen. [facility] Dae Joshi MD - 12/20/2023 Patient Name: [facility] 1955 [id number] Exam Date/Time: 12/20/2023 16:04 Procedure: XR HIP [...] Electronically Signed Date/Time: 12/20/2023 7:18 PM EDT [facility] Radiology Study observation (narrative) [facility] XR Hip - left 3 ViewsOrdered By: Dae Joshi on 12-20-2023 [facility] Absolute lymphocyte countOrd ered By: Rafael Arreaga on 11-11-2023 Lymphocytes Auto (Unsp spec) [#/Vol] 2.94 10*3/uL 0.83-4.51 [facility] Automated lymphocyte count a s percentage of total leukocytesOrdered By: Rafael Arreaga on 11-11-2023 Lymphocytes/100 WBC Auto (Unsp spec) 36.8 % 19-41 [facility] Basophil percentageOrdered B y: Rafael Arreaga on 11-11-2023 Basophils/100 WBC (Bld) 1.0 % 0-1 [facility] Cholesterol [Mass/Vol] 200 mg/dL <200 [facility] Comment on above: <200 mg/dL Desirable 200-240 mg/dL Borderline >240 mg/dL High Risk Eosinophils/100 WBC (Bld) 4.3 % 0-5 [facility] Hemoglobin (Bld) [Mass/Vol] 13.1 g/dL 12.0-15.0 [facility] Monocytes/100 WBC (Bld) 8.0 % 0-10 [facility] Neutrophils (Bld) [#/Vol] 4.0 10*3/uL 2.0-7.7 [facility] Neutrophils/100 WBC (Bld) 49.6 % 47-70 [facility] Triglyceride [Mass/Vol] 93 mg/dL <199 [facility] Comment on above: The drugs N-Acetylcy steine and Metamizole may falsely depress this assay.Serum Triglycerides Reference Interval Normal <150 mg/dL Borderline high 150 - 199 mg/dL High 200 - 499 mg/dL Very High > or = 500 mg/dL WBC (Bld) [#/Vol] 8.0 10*3/uL 4.4-11.0 [facility] Determination of erythrocyte mean corpuscular volume (MCV)Ordered By: Rafael Arreaga on 11-11-2023 MCV (RBC) [Entitic vol] 90.7 fL 81-99 [facility] Erythrocyte distribution wid th ratioOrdered By: Rafael Arreaga on 11-11-2023 Erythrocyte distribution width (RBC) [Ratio] 13.6 % 11.6-14.6 [facility] Erythrocyte distribution wid th standard deviationOrdered By: Rafael Arreaga on 11-11-2023 Erythrocyte distribution width (RBC) [Entitic vol] 45.4 fL 35.1-43.9 [facility] Hematocrit Auto (Bld) [Volum e fraction]Ordered By: Rafael Arreaga on 11-11-2023 Hematocrit (Bld) [Volume fraction] 41.2 % 37-47 [facility] Immature granulocytes/100 WB C Auto (Bld)Ordered By: Rafael Arreaga on 11-11-2023 Immature granulocytes/100 WBC (Bld) 0.300 % 0.0-0.9 [facility] Comment on above: IG% - Immature Granu locytes (promyelocytes, myelocytes and metamyelocytes) > 1% indicates that a LEFT SHIFT is Present. Laboratory - Chemistry and C hemistry - challengeOrdered By: Rafael Arreaga on 11-11-2023 Cholesterol in HDL [Mass/Vol] 42 mg/dL >40 [facility] Comment on above: The drugs N-Acetylcy steine and Metamizole may falsely depress this assay. Reference Range HDL <40 mg/dL Low HDL Cholesterol HDL >or= 60 mg/dL High HDL Cholesterol Cholesterol in LDL [Mass/Vol] 139 mg/dL 0-130 [facility] Laboratory - Hematology and Cell countsOrdered By: Rafael Arreaga on 11-11-2023 MCH (RBC) [Entitic mass] 28.9 pg 27.0-32.0 [facility] MCHC (RBC) [Mass/Vol] 31.8 g/dL 32-36 [facility] Nucleated RBC/100 WBC (Bld) [Ratio] 0 % 0-5 [facility] Platelet mean volume (Bld) [Entitic vol] 10.3 fL 6.2-12.0 [facility] Platelets (Bld) [#/Vol] 321 10*3/uL 150-450 [facility] No Panel InformationOrdered By: Rafael Arreaga on 11-11-2023 VLDL Cholesterol 19 mg/dL 5-40 [facility] RBC Auto (Bld) [#/Vol]Ordere d By: Rafael Arreaga on 11-11-2023 RBC (Bld) [#/Vol] 4.54 10*6/uL 4.2-5.4 [facility] Serum or plasma thyroid stim ulating hormone (TSH) measurement (units/volume)Ordered By: Rafael Arreaga on 11-11-2023 TSH Qn 0.85 uIU/mL 0.358-3.74 [facility] Thin prep Papanicolaou smear with manual screeningOrdered By: Rafael Arreaga on 11-11-2023 Thin prep Papanicolaou smear with manual screening 97 mg/dL 74-106 [facility] Comment on above: MANAGEMENT OF PATIEN T CARE PER NURSING PROTOCOL Whole blood hemoglobin A1c/t otal hemoglobin ratio (mass fraction)Ordered By: Rafael Arreaga on 11-11-2023 HbA1c (Bld) [Mass fraction] 5.6 % 3.8-5.6 [facility] Comment on above: Normal < 5.7 % Predi abetic 5.7 - 6.4 % Diabetic >or= 6.5 % Please note range changes. Absolute lymphocyte countOrd ered By: Nadja Vizcarra on 11-10-2023 Lymphocytes Auto (Unsp spec) [#/Vol] 3.15 10*3/uL 0.83-4.51 [facility] Activated partial thrombopla stin time (aPTT) in platelet poor plasma by coagulation aOrdered By: Nadja Vizcarra on 11-10-2023 aPTT Coag (PPP) [Time] 27.6 s 24.1-36.2 [facility] Automated lymphocyte count a s percentage of total leukocytesOrdered By: Nadja Vizcarra on 11-10-2023 Lymphocytes/100 WBC Auto (Unsp spec) 32.2 % 19-41 [facility] Basophil percentageOrdered B y: Nadja Vizcarra on 11-10-2023 Basophils/100 WBC (Bld) 0.6 % 0-1 [facility] Chloride [Moles/Vol] 105 mmol/L 98-107 [facility] Eosinophils/100 WBC (Bld) 2.0 % 0-5 [facility] Glucose [Mass/Vol] 111 mg/dL 74-106 [facility] Comment on above: Fasting Glucose resu lt from 100 to 125 mg/dL suggests IMPAIRED HOMEOSTASIS per A.D.A. criteria. Hemoglobin (Bld) [Mass/Vol] 15.3 g/dL 12.0-15.0 [facility] Monocytes/100 WBC (Bld) 5.4 % 0-10 [facility] Neutrophils (Bld) [#/Vol] 5.8 10*3/uL 2.0-7.7 [facility] Neutrophils/100 WBC (Bld) 59.6 % 47-70 [facility] Potassium [Moles/Vol] 4.2 mmol/L 3.5-5.1 [facility] Comment on above: Slight Hemolysis, Re sult may be falsely increased. Sodium [Moles/Vol] 138 mmol/L 136-145 [facility] WBC (Bld) [#/Vol] 9.8 10*3/uL 4.4-11.0 [facility] Determination of erythrocyte mean corpuscular volume (MCV)Ordered By: Nadja Vizcarra on 11-10-2023 MCV (RBC) [Entitic vol] 90.8 fL 81-99 [facility] Erythrocyte distribution wid th ratioOrdered By: Nadja Vizcarra on 11-10-2023 Erythrocyte distribution width (RBC) [Ratio] 13.4 % 11.6-14.6 [facility] Erythrocyte distribution wid th standard deviationOrdered By: Nadja Vizcarra on 11-10-2023 Erythrocyte distribution width (RBC) [Entitic vol] 45.4 fL 35.1-43.9 [facility] Hematocrit Auto (Bld) [Volum e fraction]Ordered By: Nadja Vizcarra on 11-10-2023 Hematocrit (Bld) [Volume fraction] 47.2 % 37-47 [facility] Immature granulocytes/100 WB C Auto (Bld)Ordered By: Nadja Vizcarra on 11-10-2023 Immature granulocytes/100 WBC (Bld) 0.200 % 0.0-0.9 [facility] Comment on above: IG% - Immature Granu locytes (promyelocytes, myelocytes and metamyelocytes) > 1% indicates that a LEFT SHIFT is Present. Laboratory - Chemistry and C hemistry - challengeOrdered By: Nadja Vizcarra on 11-10-2023 CO2 [Moles/Vol] 31.0 mmol/L 21.0-32.0 [facility] Urea nitrogen/Creatinine [Mass ratio] 20.4 mg/mg 10-20 [facility] Laboratory - Chemistry and C hemistry - challengeOrdered By: Rafael Arreaga on 11-10-2023 Magnesium [Mass/Vol] 2.1 mg/dL 1.6-2.6 [facility] Comment on above: Slight Hemolysis, Re sult may be falsely increased. Laboratory - CoagulationOrde red By: Nadja Vizcarra on 11-10-2023 INR Coag (Bld) [Relative time] 1.0 {INR} [facility] PT Coag (PPP) [Time] 13.0 s 11.7-14.9 [facility] Laboratory - Hematology and Cell countsOrdered By: Nadja Vizcarra on 11-10-2023 MCH (RBC) [Entitic mass] 29.4 pg 27.0-32.0 [facility] MCHC (RBC) [Mass/Vol] 32.4 g/dL 32-36 [facility] Nucleated RBC/100 WBC (Bld) [Ratio] 0 % 0-5 [facility] Platelet mean volume (Bld) [Entitic vol] 9.8 fL 6.2-12.0 [facility] Platelets (Bld) [#/Vol] 331 10*3/uL 150-450 [facility] No Panel InformationOrdered By: Nadja Vizcarra on 11-10-2023 Estimated Creatinine Clearance Calc 69.82 ml/min [facility] Estimated GFR (MDRD) Amer 102 mL/min >60 [facility] Comment on above: GFR Calc Estimated GFR (MDRD) Non-Af Amer 84 mL/min >60 [facility] Comment on above: Non- GFR Calc Troponin I High Sensitivity 14 pg/mL 3.0-54.0 [facility] Comment on above: Please Note: New [place] t Units and Gender Specific Reference Ranges. For more information see Policy Stat Procedure [employer] High Sensitivity Troponin (TNIH) and attachments. RBC Auto (Bld) [#/Vol]Ordere d By: Nadja Vizcarra on 11-10-2023 RBC (Bld) [#/Vol] 5.20 10*6/uL 4.2-5.4 [facility] Serum or plasma calcium za urement (mass/volume)Ordered By: Nadja Vizcarra on 11-10-2023 Calcium [Mass/Vol] 9.4 mg/dL 8.5-10.1 [facility] Serum or plasma creatinine m easurement (mass/volume)Ordered By: Nadja Vizcarra on 11-10-2023 Creatinine [Mass/Vol] 0.74 mg/dL 0.55-1.02 [facility] Comment on above: The validity of the calculated GFR & GFRAA in patients over 70 years has not been determined. Clinical correlation is essential. Serum or plasma urea nitroge n measurement (mass/volume)Ordered By: Nadja Vizcarra on 11-10-2023 Urea nitrogen [Mass/Vol] 15 mg/dL 7-18 [facility] Thin prep Papanicolaou smear with manual screeningOrdered By: Nadja Vizcarra on 11-10-2023 Thin prep Papanicolaou smear with manual screening 2 5-15 [facility] Absolute lymphocyte countOrd ered By: Leonidas Traore on 10-31-2023 Lymphocytes Auto (Unsp spec) [#/Vol] 2.77 10*3/uL 0.83-4.51 [facility] Automated lymphocyte count a s percentage of total leukocytesOrdered By: Leonidas Traore on 10-31-2023 Lymphocytes/100 WBC Auto (Unsp spec) 27.5 % 19-41 [facility] Basophil percentageOrdered B y: Leonidas Traore on 10-31-2023 Basophils/100 WBC (Bld) 0.7 % 0-1 [facility] Bilirubin [Mass/Vol] 0.30 mg/dL 0.20-1.00 [facility] Comment on above: For patients on eltr ombopag therapy, use of Dimension [place] TBIL is not recommended. Chloride [Moles/Vol] 103 mmol/L 98-107 [facility] Cholesterol [Mass/Vol] 232 mg/dL <200 [facility] Comment on above: <200 mg/dL Desirable 200-240 mg/dL Borderline >240 mg/dL High Risk Eosinophils/100 WBC (Bld) 0.8 % 0-5 [facility] Glucose [Mass/Vol] 189 mg/dL 74-106 [facility] Comment on above: Fasting Glucose resu lt greater than or equal to 126 mg/dL suggests DIABETES MELLITUS per A.D.A. criteria. Hemoglobin (Bld) [Mass/Vol] 15.1 g/dL 12.0-15.0 [facility] Monocytes/100 WBC (Bld) 4.5 % 0-10 [facility] Neutrophils (Bld) [#/Vol] 6.7 10*3/uL 2.0-7.7 [facility] Neutrophils/100 WBC (Bld) 66.1 % 47-70 [facility] Potassium [Moles/Vol] 3.6 mmol/L 3.5-5.1 [facility] Protein [Mass/Vol] 7.6 g/dL 6.4-8.2 [facility] Sodium [Moles/Vol] 138 mmol/L 136-145 [facility] Triglyceride [Mass/Vol] 211 mg/dL <199 [facility] Comment on above: The drugs N-Acetylcy steine and Metamizole may falsely depress this assay.Serum Triglycerides Reference Interval Normal <150 mg/dL Borderline high 150 - 199 mg/dL High 200 - 499 mg/dL Very High > or = 500 mg/dL WBC (Bld) [#/Vol] 10.1 10*3/uL 4.4-11.0 [facility] Determination of erythrocyte mean corpuscular volume (MCV)Ordered By: Leonidas Traore on 10-31-2023 MCV (RBC) [Entitic vol] 89.7 fL 81-99 [facility] Erythrocyte distribution wid th ratioOrdered By: [facility] Kimomakeda on 10-31-2023 Erythrocyte distribution width (RBC) [Ratio] 13.7 % 11.6-14.6 [facility] Erythrocyte distribution wid th standard deviationOrdered By: [facility] on 10-31-2023 Erythrocyte distribution width (RBC) [Entitic vol] 45.4 fL 35.1-43.9 [facility] Hematocrit Auto (Bld) [Volum e fraction]Ordered By: [facility] Kimomakeda on 10-31-2023 Hematocrit (Bld) [Volume fraction] 46.2 % 37-47 [facility] Immature granulocytes/100 WB C Auto (Bld)Ordered By: [facility] Kimomakeda on 10-31-2023 Immature granulocytes/100 WBC (Bld) 0.400 % 0.0-0.9 [facility] Comment on above: IG% - Immature Granu locytes (promyelocytes, myelocytes and metamyelocytes) > 1% indicates that a LEFT SHIFT is Present. Laboratory - Chemistry and C hemistry - challengeOrdered By: karthikarvadaronel Malinmakeda on 10-31-2023 Albumin/Globulin [Mass ratio] 0.9 {ratio} 0.9-2.4 [facility] ALP [Catalytic activity/Vol] 70 U/L 45-117 [facility] ALT [Catalytic activity/Vol] 26 U/L 13-56 [facility] Cholesterol in HDL [Mass/Vol] 48 mg/dL >40 [facility] Comment on above: The drugs N-Acetylcy steine and Metamizole may falsely depress this assay. Reference Range HDL <40 mg/dL Low HDL Cholesterol HDL >or= 60 mg/dL High HDL Cholesterol Cholesterol in LDL [Mass/Vol] 142 mg/dL 0-130 [facility] CO2 [Moles/Vol] 29.0 mmol/L 21.0-32.0 [facility] Globulin (S) [Mass/Vol] 4.1 g/dL 2.2-4.2 [facility] Urea nitrogen/Creatinine [Mass ratio] 24.5 mg/mg 10-20 [facility] Laboratory - Hematology and Cell countsOrdered By: Leonidas Traore on 10-31-2023 MCH (RBC) [Entitic mass] 29.3 pg 27.0-32.0 [facility] MCHC (RBC) [Mass/Vol] 32.7 g/dL 32-36 [facility] Nucleated RBC/100 WBC (Bld) [Ratio] 0 % 0-5 [facility] Platelet mean volume (Bld) [Entitic vol] 10.3 fL 6.2-12.0 [facility] Platelets (Bld) [#/Vol] 363 10*3/uL 150-450 [facility] No Panel InformationOrdered By: Leonidas Traore on 10-31-2023 Estimated GFR (MDRD) Amer 85 mL/min >60 [facility] Comment on above: GFR Calc Estimated GFR (MDRD) Non-Af Amer 70 mL/min >60 [facility] Comment on above: Non- GFR Calc VLDL Cholesterol 42 mg/dL 5-40 [facility] RBC Auto (Bld) [#/Vol]Ordere d By: Leonidas Traore on 10-31-2023 RBC (Bld) [#/Vol] 5.15 10*6/uL 4.2-5.4 [facility] Serum or plasma calcium za urement (mass/volume)Ordered By: Leonidas Traore on 10-31-2023 Calcium [Mass/Vol] 9.2 mg/dL 8.5-10.1 [facility] Serum or plasma creatinine m easurement (mass/volume)Ordered By: Leonidas Traore on 10-31-2023 Creatinine [Mass/Vol] 0.86 mg/dL 0.55-1.02 [facility] Comment on above: The validity of the calculated GFR & GFRAA in patients over 70 years has not been determined. Clinical correlation is essential. Serum or plasma urea nitroge n measurement (mass/volume)Ordered By: Leonidas Traore on 10-31-2023 Urea nitrogen [Mass/Vol] 21 mg/dL 7-18 [facility] Thin prep Papanicolaou smear with manual screeningOrdered By: karthikarvadaronel Traore on 10-31-2023 Thin prep Papanicolaou smear with manual screening 3.5 g/dL 3.2-5.0 [facility] Thin prep Papanicolaou smear with manual screening 14 U/L 15-37 [facility] Thin prep Papanicolaou smear with manual screening 6 5-15 [facility] Whole blood hemoglobin A1c/t otal hemoglobin ratio (mass fraction)Ordered By: Leonidas Traore on 10-31-2023 HbA1c (Bld) [Mass fraction] 5.7 % 3.8-5.6 [facility] Comment on above: Normal < 5.7 % Predi abetic 5.7 - 6.4 % Diabetic >or= 6.5 % Please note range changes. Absolute lymphocyte counton 05-03-2022 Lymphocytes Auto (Unsp spec) [#/Vol] 4.38 10*3/uL 0.83-4.51 [facility] Work Phone: Basophil percentageon 2021 Basophils/100 WBC (Bld) 0.5 % 0-1 [facility] Work Phone: Bilirubin [Mass/Vol] 0.30 mg/dL 0.20-1.00 [facility] Work Phone: Comment on above: For patients on eltr ombopag therapy, use of Dimension [place] TBIL is not recommended. Chloride [Moles/Vol] 103 mmol/L 98-107 [facility] Work Phone: Cholesterol [Mass/Vol] 216 mg/dL <200 [facility] Work Phone: Comment on above: <200 mg/dL Desirable 200-240 mg/dL Borderline >240 mg/dL High Risk Eosinophils/100 WBC (Bld) 0.6 % 0-5 [facility] Work Phone: Glucose [Mass/Vol] 93 mg/dL 74-106 [facility] Work Phone: Neutrophils (Bld) [#/Vol] 8.3 10*3/uL 2.0-7.7 [facility] Work Phone: Neutrophils/100 WBC (Bld) 60.4 % 47-70 [facility] Work Phone: Potassium [Moles/Vol] 3.3 mmol/L 3.5-5.1 [facility] Work Phone: Protein [Mass/Vol] 7.9 g/dL 6.4-8.2 [facility] Work Phone: Sodium [Moles/Vol] 139 mmol/L 136-145 [facility] Work Phone: Triglyceride [Mass/Vol] 112 mg/dL <199 [facility] Work Phone: Comment on above: The drugs N-Acetylcy steine and Metamizole may falsely depress this assay.Serum Triglycerides Reference Interval Normal <150 mg/dL Borderline high 150 - 199 mg/dL High 200 - 499 mg/dL Very High > or = 500 mg/dL WBC (Bld) [#/Vol] 13.8 10*3/uL 4.4-11.0 [facility] Work Phone: Blood erythrocytes count (nu mber/volume)on 05-03-2022 RBC (Bld) [#/Vol] 5.32 10*6/uL 4.2-5.4 [facility] Work Phone: Blood hemoglobin measurement (mass/volume)on 05-03-2022 Hemoglobin (Bld) [Mass/Vol] 16.0 g/dL 12.0-15.0 [facility] Work Phone: Blood lymphocytes/100 leukoc yteson 05-03-2022 Lymphocytes/100 WBC (Bld) 31.8 % 19-41 [facility] Work Phone: Blood monocytes/100 leukocyt eson 05-03-2022 Monocytes/100 WBC (Bld) 6.3 % 0-10 [facility] Work Phone: Blood platelet mean volumeon 05-03-2022 Platelet mean volume (Bld) [Entitic vol] 10.1 fL 6.2-12.0 [facility] Work Phone: Determination of erythrocyte mean corpuscular volume (MCV)on 05-03-2022 MCV (RBC) [Entitic vol] 90.6 fL 81-99 [facility] Work Phone: Direct bilirubinon Bilirubin.direct [Mass/Vol] 0.09 mg/dL 0.00-0.30 [facility] Work Phone: Hematocrit Auto (Bld) [Volum e fraction]on 05-03-2022 Hematocrit (Bld) [Volume fraction] 48.2 % 37-47 [facility] Work Phone: Laboratory - Chemistry and C hemistry - challengeon 05-03-2022 ALP [Catalytic activity/Vol] 83 U/L 45-117 [facility] Work Phone: ALT [Catalytic activity/Vol] 22 U/L 13-56 [facility] Work Phone: CO2 [Moles/Vol] 31.0 mmol/L 21.0-32.0 [facility] Work Phone: Globulin (S) [Mass/Vol] 4.2 g/dL 2.2-4.2 [facility] Work Phone: Natriuretic peptide B (Bld) [Mass/Vol] 44.3 pg/mL 0-100 [facility] Work Phone: Urea nitrogen/Creatinine [Mass ratio] 25.4 mg/mg 10-20 [facility] Work Phone: Laboratory - Hematology and Cell countson 05-03-2022 Erythrocyte distribution width (RBC) [Entitic vol] 44.2 fL 35.1-43.9 [facility] Work Phone: Erythrocyte distribution width (RBC) [Ratio] 13.2 % 11.6-14.6 [facility] Work Phone: Immature granulocytes/100 WBC (Bld) 0.400 % 0.0-0.9 [facility] Work Phone: Comment on above: IG% - Immature Granu locytes (promyelocytes, myelocytes and metamyelocytes) > 1% indicates that a LEFT SHIFT is Present. MCH (RBC) [Entitic mass] 30.1 pg 27.0-32.0 [facility] Work Phone: Nucleated RBC/100 WBC (Bld) [Ratio] 0 % 0-5 [facility] Work Phone: MCHC Auto (RBC) [Mass/Vol]on 05-03-2022 MCHC (RBC) [Mass/Vol] 33.2 g/dL 32-36 [facility] Work Phone: No Panel Informationon 05-03 Estimated GFR (MDRD) Amer 122 mL/min >60 [facility] Work Phone: Comment on above: GFR Calc Estimated GFR (MDRD) Non-Af Amer 101 mL/min >60 [facility] Work Phone: Comment on above: Non- GFR Calc Platelets bldon 05-03-2022 Platelets (Bld) [#/Vol] 409 10*3/uL 150-450 [facility] Work Phone: Serum or plasma albumin za urement (mass/volume)on 05-03-2022 Albumin [Mass/Vol] 3.7 g/dL 3.2-5.0 [facility] Work Phone: Serum or plasma calcium za urement (mass/volume)on 05-03-2022 Calcium [Mass/Vol] 8.9 mg/dL 8.5-10.1 [facility] Work Phone: Serum or plasma cholesterol in HDL measurement (mass/volume)on 05-03-2022 Cholesterol in HDL [Mass/Vol] 56 mg/dL >40 [facility] Work Phone: Comment on above: The drugs N-Acetylcy steine and Metamizole may falsely depress this assay. Reference Range HDL <40 mg/dL Low HDL Cholesterol HDL >or= 60 mg/dL High HDL Cholesterol Serum or plasma cholesterol in VLDL measurement (mass/volume)on 05-03-2022 Cholesterol in VLDL [Mass/Vol] 22 mg/dL 5-40 [facility] Work Phone: Serum or plasma creatinine m easurement (mass/volume)on 05-03-2022 Creatinine [Mass/Vol] 0.63 mg/dL 0.55-1.02 [facility] Work Phone: Comment on above: The validity of the calculated GFR & GFRAA in patients over 70 years has not been determined. Clinical correlation is essential. Serum or plasma low density lipoprotein (LDL) cholesterol measurement (mass/volume)on 05-03-2022 Cholesterol in LDL [Mass/Vol] 138 mg/dL 0-130 [facility] Work Phone: Serum or plasma urea nitroge n measurement (mass/volume)on 05-03-2022 Urea nitrogen [Mass/Vol] 16 mg/dL 7-18 [facility] Work Phone: Thin prep Papanicolaou smear with manual screeningon 05-03-2022 Thin prep Papanicolaou smear with manual screening 15 U/L 15-37 [facility] Work Phone: Thin prep Papanicolaou smear with manual screening 5 5-15 [facility] Work Phone: Op Noteon 11-30-2019 Op Note [facility] GENERAL SURGERY [address] [place] [address] Dept: [phone] Loc: [phone] Operative Report Patient Name: Giovanni Lomax Date of : 1955 Date of Surgery: 11/30/19 Pre-operative diagnosis: Left proximal humerus fracture Post-operative diagnosis: Same Procedure(s): Open reduction internal fixation of left proximal humerus fracture (CPT 58356) Surgeon: Guido Bishop M.D. Framing Mechanic(s): Carlo Nunez M.D. and Babak Underwood PA-C [...] as well as medical complications such as ID, stroke, PE, DVT, and even . Specific indications and/or risks of this procedure were discussed as well including, but not limited to: skin numbness below the incision and symptomatic hardware which could require removal. Pt was given opportunity to ask questions and consider her options. She ultimately elected to proceed with surgery. No guarantees were given or implied. 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 She was counseled that she is very high risk for surgery and should strongly consider non-operative treatment. 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 She was cleared by her certified mortician. She needs to stay on her thinners [...] Bishop MD at 11/30/19, 2:44 PM Normal [facility] Basic Metabolic Panelon 11-09 Anion gap [Moles/Vol] 11 Normal [facility] Comment on above: Performed By: #### H GHCT, BMP3 #### [address] [address] Calcium [Mass/Vol] 9.5 mg/dL Normal 8.4-10.4 [facility] Comment on above: Performed By: #### H GHCT, BMP3 #### [facility] [address], [place] CO2 [Moles/Vol] 25 mmol/L Normal 22-30 [facility] Comment on above: Performed By: #### H GHCT, BMP3 #### [facility] [address], [place] Glucose [Mass/Vol] 107 mg/dL High 70-100 [facility] Comment on above: Performed By: #### H GHCT, BMP3 #### [facility] [address] [place], [place] Urea nitrogen [Mass/Vol] 18 mg/dL Normal 7-20 [facility] Comment on above: Performed By: #### H GHCT, BMP3 #### [facility] [address] [place], [place] Creatinine [Mass/Vol] 0.57 mg/dL Normal 0.52-1.25 [facility] Comment on above: Performed By: #### H GHCT, BMP3 #### [facility] [address] [place], [place] GFR/1.73 sq M predicted among blacks MDRD (S/P/Bld) [Vol rate/Area] mL/min/{1.73_m2} Normal >60 [facility] Comment on above: Performed By: #### H GHCT, BMP3 #### [facility] [address], [place] GFR/1.73 sq M predicted among non-blacks MDRD (S/P/Bld) [Vol rate/Area] mL/min/{1.73_m2} Normal >60 [facility] Comment on above: Result Comment: KDIG O [...] tubular creatinine secretion. Performed By: #### H IAN MCCLELLAN3 #### [facility] [address], [place] Potassium [Moles/Vol] 4.2 mmol/L Normal 3.5-5.1 [facility] Comment on above: Performed By: #### H IAN MCCLELLAN3 #### [facility] [address] [place], [place] Sodium [Moles/Vol] 137 mmol/L Normal 135-145 [facility] Comment on above: Performed By: #### H IAN MCCLELLAN3 #### [place] [address] [address], [place] Chloride [Moles/Vol] 100 mmol/L Normal 98-107 [facility] Comment on above: Performed By: #### H IAN MCCLELLAN3 #### [place] [address] [address] [place], [place] Anion gap [Moles/Vol] 11 mmol/L [place], [place] Calcium [Mass/Vol] 9.5 mg/dL 8.4 - 10. 4 mg/dL [place], [place] Chloride [Moles/Vol] 100 mmol/L 98 - 10 7 mmol/L [place] CO2 [Moles/Vol] 25 mmol/L 22 - 30 mmol/L [place] Creatinine [Mass/Vol] 0.57 mg/dL 0.52 - 1.25 mg/dL [place] EGFR IF NonAfrican Swiss >90.0 >60 mL/min [place] Comment on above: KDIGO guidelines pro [...] MDRD (S/P/Bld) [Vol rate/Area] mL/min/{1.73_m2} >60 mL/min [place] Glucose [Mass/Vol] 107 mg/dL High 70 - 100 mg/dL [place] Interpretation and review of laboratory results Abnormal [place] Potassium [Moles/Vol] 4.2 mmol/L 3.5 - 5.1 mmol/L [place] Sodium [Moles/Vol] 137 mmol/L 135 - 145 mmol/L [place] Urea nitrogen [Mass/Vol] 18 mg/dL 7 - 20 mg/dL [place] Test Performed by [facility], [address] [place] [address] [place], [place] Hemoglobin AND Hematocriton 11-29-2019 Hematocrit (Bld) [Volume fraction] 38.7 % Normal 35.0-47.0 [facility] Comment on above: Performed By: #### H CT, BMP3 #### [address] [address] Hemoglobin (Bld) [Mass/Vol] 13.4 g/dL Normal 11.7-16.0 [facility] Comment on above: Performed By: #### H LASTCT, BMP3 #### [address] [address] Hemoglobin and Hematocrit, B loodon 11-29-2019 Hematocrit (Bld) [Volume fraction] 38.7 % 35 - 47 % [place] Hemoglobin (Bld) [Mass/Vol] 13.4 g/dL 11.7 - 16 g/dL [place] Test Performed by [facility], [address] [place] [address] [facility] CNPN Telephone (AGPOB1) ARIGIOVANNI MONTANEZ ([id number]) 1955 F Date Time Provider Department 11/21/19 TRACY LUNA AGPOB1 During your visit today, we recorded the [...] here in our practice. Thank you Nadja Negron [facility] Triage Pool ? Subject Line Format: Orthopedics [...] fracture was going to a provider at [facility] and is not happy and a friend told her about Dr. Luna. Reason for the call/escalation: Patient would like to make appt to be seen for her left arm fracture that she was told needs surgery doctor that she was told to see at [facility] only is in 1 day a week and has no openings for a while and she is not happy. If reason for call/escalation is discharge from ED/ER or Hospital, which facility was the patient seen at: Was seen back at end of October in [place] and they did a CT scan of the arm if you need to contact them for the images she does not think her insurance will cover another Ct at this time . Was an appointment scheduled (Y/N): no needs one please Person calling if other than patient: self Return call to if other than patient: self Best contact number: [phone] Nadja Nielson November 21, 2019 ?10:26 AM Allergies As of Date: 11/21/2019 (No Known Allergies) Date Reviewed: 06/27/2019 Reviewed by: Rome Love - Fully Assessed Reason for Visit: Contact Center Call [[id number]] Prescriptions as of 11/21/2019 Sig: LISINOPRIL 5 [...] COPD [J44.9] 02/21/2009 Coronary artery disease involving houlton jauregui*02/24/2016 Dyspnea on exertion [R06.00] 02/24/2016 Encounter Status:Closed by DEIDRA CADENA on 11/21/19 Normal [facility] YASMINE CULTURE-STOOL ([id number])Ord ered By: Veneer Gluer on 05-04-2019 Bacteria identified Cx Nom (Unsp spec) NCI Normal [facility] Work Phone: Comment on above: No Campylobacter spe cies isolated. PATIENT NOT FASTINGP ERFORMED BY: CB [facility] Znjqwz3973 [address] Road[address] [place] [id number] Information: SRC:ST SRC:ST Bacteria identified Cx Nom (Unsp spec) NSS Normal [facility] Work Phone: Comment on above: No Salmonella or Candi gella recovered. PATIENT NOT FASTINGP ERFORMED BY: CB [facility] Tadhey3730 [address] Road[address]ublin [place] [id number] Information: SRC:ST SRC:ST Campylobacter sp identified Org specific cx Nom (Stl) Final report Normal [facility] Work Phone: Comment on above: PATIENT NOT FASTINGP ERFORMED BY: CB [facility] Wjkiob3058 [address] Road[address]ublin [place] [id number] Information: SRC:ST SRC:ST E. coli shiga-like toxin IA Ql (Stl) Negative Normal [facility] Work Phone: Comment on above: PATIENT NOT FASTINGP ERFORMED BY: CB [facility] Jsyfhd6027 [address] Road[address]ublin [place] [id number] Information: SRC:ST SRC:ST E. coli shiga-like toxin IA Ql (Stl) Negative Normal [facility]; [facility] Work Phone: Comment on above: PATIENT NOT FASTINGP ERFORMED BY: ESTEFANI [facility] Izetnh8514 [address] Road[address]ublin [place] [id number] Information: SRC:ST SRC:ST Salmonella and Shigella sp identified Org specific cx Nom (Stl) Final report Normal [facility] Work Phone: Comment on above: PATIENT NOT FASTINGP ERFORMED BY: ESTEFANI [facility] Rwkodu4212 [address] [place] [id number] Information: SRC:ST SRC:ST C-DIFFICILE, STOOL ([id number])Or dered By: Veneer Gluer on 05-04-2019 C. difficile toxin A+B IA Ql (Stl) Negative Normal [facility] Work Phone: Comment on above: PATIENT NOT FASTINGP ERFORMED BY: ESTEFANI [facility] Nselnh0004 [address] Road[address] [place] [id number] C. difficile toxin A+B IA Ql (Stl) Negative Normal [facility]; [facility] Work Phone: Comment on above: PATIENT NOT FASTINGP ERFORMED BY: ESTEFANI [facility] Qmqcay2472 [address] RoadD[address] [place] [id number] LEUKOCYTE COUNT, FECAL ([id number])Ordered By: Veneer Gluer on 05-04-2019 WBC LM Ql (Stl) Final report Normal [facility] Work Phone: Comment on above: PATIENT NOT FASTINGP ERFORMED BY: CB [facility] Kcqkcc5376 [address] RoadD[address] [place] [id number] WBC LM Ql (Stl) NWBC Normal [facility]prehen [facility] Work Phone: Comment on above: No white blood cells seen. PATIENT NOT FASTINGP ERFORMED BY: CB [facility] Gbxmsp8606 [address] [place] [id number] OVA & PARASITE DIR SMEAR ([id number])Ordered By: Veneer Gluer on 05-04-2019 Ova and parasites identified Concentration Nom (Stl) NOCP1 Normal [facility] Work Phone: Comment on above: No ova, cysts, or pa rasites seen. .One negative specimen does not rule out the possibility of aparasitic infection. PATIENT NOT FASTINGP ERFORMED BY: [facility] [id number] Ova and parasites identified LM Nom (Unsp spec) Final report Normal [facility] Work Phone: Comment on above: These results were o btained using wet preparation(s) and trichromestained smear. This test does not include testing for Cryptosporidiumparvum, Cyclospora, or Microsporidia. PATIENT NOT FASTINGP ERFORMED BY: [facility] [facility] [id number] C-REACTIVE PROTEIN ([id number])Or dered By: Veneer Gluer on 05-03-2019 CRP [Mass/Vol] 7 mg/L Normal 0-10 [facility] Work Phone: Comment on above: PATIENT NOT FASTINGP ERFORMED BY: [facility] [facility] [id number] CBC with auto diff ([id number])Or dered By: Veneer Gluer on 05-03-2019 Basophils (Bld) [#/Vol] 0.0 {x10E3/uL} Normal 0.0-0.2 [facility] Work Phone: Comment on above: PATIENT NOT FASTINGP ERFORMED BY: [facility] [facility] [id number] Basophils (Bld) [#/Vol] 0.0 10*3/uL Normal 0.0-0.2 [facility]; [facility] Work Phone: Comment on above: PATIENT NOT FASTINGP ERFORMED BY: [facility] [facility] [id number] Basophils/100 WBC (Bld) 0 % Normal [facility] Work Phone: Comment on above: PATIENT NOT FASTINGP ERFORMED BY: [facility] [facility] [id number] Eosinophils (Bld) [#/Vol] 0.3 {x10E3/uL} Normal 0.0-0.4 [facility] Work Phone: Comment on above: PATIENT NOT FASTINGP ERFORMED BY: ESTEFANI [facility] Bxfoec8781 [address] RoadDublin [place] [id number] Eosinophils (Bld) [#/Vol] 0.3 10*3/uL Normal 0.0-0.4 [facility]; [facility] Work Phone: Comment on above: PATIENT NOT FASTINGP ERFORMED BY: CB [facility] Hkjieu1[address] [place] [id number] Eosinophils/100 WBC (Bld) 3 % Normal [facility] Work Phone: Comment on above: PATIENT NOT FASTINGP ERFORMED BY: CB [facility] Vfxsmt5263 [address] RoadD[address] [place] [id number] Erythrocyte distribution width (RBC) [Ratio] 14.3 % Normal 12.3-15.4 [facility] Work Phone: Comment on above: PATIENT NOT FASTINGP ERFORMED BY: CB [facility] Rsdzgy0774 [address] RoadD[address] [place] [id number] Hematocrit (Bld) [Volume fraction] 42.0 % Normal 34.0-46.6 [facility] Work Phone: Comment on above: PATIENT NOT FASTINGP ERFORMED BY: CB [facility] Ocgllh6904 [address] RoadD[address] [place] [id number] Hemoglobin (Bld) [Mass/Vol] 14.1 g/dL Normal 11.1-15.9 [facility] Work Phone: Comment on above: PATIENT NOT FASTINGP ERFORMED BY: CB [facility] Tnvztn4809 [address] Road[address] [place] [id number] Immature granulocytes (Bld) [#/Vol] 0.0 {x10E3/uL} Normal 0.0-0.1 [facility] Work Phone: Comment on above: PATIENT NOT FASTINGP ERFORMED BY: CB [facility] Wjyftt7109 [address] [place] [id number] Immature granulocytes (Bld) [#/Vol] 0.0 10*3/uL Normal 0.0-0.1 [facility]; [facility] Work Phone: Comment on above: PATIENT NOT FASTINGP ERFORMED BY: ESTEFANI Lab[facility] Stubbs[address] [facility]in [place] [id number] Immature granulocytes/100 WBC (Bld) 0 % Normal [facility] Work Phone: Comment on above: PATIENT NOT FASTINGP ERFORMED BY: ESTEFANI [facility] Mnuyse[address] [facility] [id number] Lymphocytes (Bld) [#/Vol] 2.3 {x10E3/uL} Normal 0.7-3.1 [email or web address] Work Phone: Comment on above: PATIENT NOT FASTINGP ERFORMED BY: ESTEFANI LabRom[facility] Gtkhxy[address] [facility] [id number] Lymphocytes (Bld) [#/Vol] 2.3 10*3/uL Normal 0.7-3.1 [facility] [[email or web address]; [facility] Work Phone: Comment on above: PATIENT NOT FASTINGP ERFORMED BY: [facility] Ycjmqy[address] [facility] [id number] Lymphocytes/100 WBC (Bld) 23 % Normal [facility] [[email or web address] Work Phone: Comment on above: PATIENT NOT FASTINGP ERFORMED BY: ESTEFANI LabRom[facility] Ndkiva[address] [facility] [id number] MCH (RBC) [Entitic mass] 30.1 pg Normal 26.6-33.0 [facility] [[email or web address] Work Phone: Comment on above: PATIENT NOT FASTINGP ERFORMED BY: LabCoRobert [facility] Johnson University Hospital at RahwayKrznrd5[address] [facility] [id number] MCHC (RBC) [Mass/Vol] 33.6 g/dL Normal 31.5-35.7 [facility] Work Phone: Comment on above: PATIENT NOT FASTINGP ERFORMED BY: [facility] [facility] [id number] MCV (RBC) [Entitic vol] 90 fL Normal 79-97 [facility] Work Phone: Comment on above: PATIENT NOT FASTINGP ERFORMED BY: CB [facility] Dgwgnj9454 [address] [place] [id number] Monocytes (Bld) [#/Vol] 0.6 {x10E3/uL} Normal 0.1-0.9 [facility] Work Phone: Comment on above: PATIENT NOT FASTINGP ERFORMED BY: CB [facility] Rgqryf2517 [address] [place] [id number] Monocytes (Bld) [#/Vol] 0.6 10*3/uL Normal 0.1-0.9 [facility]; [facility] Work Phone: Comment on above: PATIENT NOT FASTINGP ERFORMED BY: CB [facility] Ynacce3710 [address] [place] [id number] Monocytes/100 WBC (Bld) 6 % Normal [facility] Work Phone: Comment on above: PATIENT NOT FASTINGP ERFORMED BY: CB [facility] Jbqwbx1114 [address] [place] [id number] Neutrophils (Bld) [#/Vol] 6.7 {x10E3/uL} Normal 1.4-7.0 [facility] Work Phone: Comment on above: PATIENT NOT FASTINGP ERFORMED BY: CB [facility] Moxiju0504 [address] [place] [id number] Neutrophils (Bld) [#/Vol] 6.7 10*3/uL Normal 1.4-7.0 [facility]; [facility] Work Phone: Comment on above: PATIENT NOT FASTINGP ERFORMED BY: CB [facility] Uqfyig9747 [address] [place] [id number] Neutrophils/100 WBC (Bld) 68 % Normal [facility] Work Phone: Comment on above: PATIENT NOT FASTINGP ERFORMED BY: CB [facility] Scecqt6727 [address] [place] [id number] Platelets (Bld) [#/Vol] 379 {x10E3/uL} Normal 150-450 [facility] [[email or web address]] Internal Medicine Work Phone: Comment on above: PATIENT NOT FASTINGP ERFORMED BY: ESTEFANI [facility] Rmhxlj8641 [address] [place] [id number] Platelets (Bld) [#/Vol] 379 10*3/uL Normal 150-450 [facility]; [facility] Work Phone: Comment on above: PATIENT NOT FASTINGP ERFORMED BY: CB [facility] Zwhenq7308 [address] [place] [id number] RBC (Bld) [#/Vol] 4.68 {x10E6/uL} Normal 3.77-5.28 [facility] [[email or web address]] Internal Medicine Work Phone: Comment on above: PATIENT NOT FASTINGP ERFORMED BY: CB [facility] Iayndp6424 [address] [place] [id number] RBC (Bld) [#/Vol] 4.68 10*6/uL Normal 3.77-5.28 [facility]; [facility] Work Phone: Comment on above: PATIENT NOT FASTINGP ERFORMED BY: CB [facility] Gdoipt7489 [address] [place] [id number] WBC (Bld) [#/Vol] 9.9 {x10E3/uL} Normal 3.4-10.8 [facility] Work Phone: Comment on above: PATIENT NOT FASTINGP ERFORMED BY: CB [facility] Qqkeqt8709 [address] [place] [id number] WBC (Bld) [#/Vol] 9.9 10*3/uL Normal 3.4-10.8 [facility]; [facility] Work Phone: Comment on above: PATIENT NOT FASTINGP ERFORMED BY: CB [facility] Wcgxvq8220 [address] [place] [id number] Metabolic Panel, Comprehensi ve ([id number])Ordered By: Veneer Gluer on 05-03-2019 Albumin [Mass/Vol] 4.6 g/dL Normal 3.6-4.8 [facility] Work Phone: Comment on above: PATIENT NOT FASTINGP ERFORMED BY: ESTEFANI [facility] Xjjlqu7220 [address] [place] [id number] Albumin/Globulin [Mass ratio] 1.8 {ratio} Normal 1.2-2.2 [facility] Work Phone: Comment on above: PATIENT NOT FASTINGP ERFORMED BY: CB [facility] Llghjw2575 [address] [place] [id number] ALP [Catalytic activity/Vol] 74 [iU]/L Normal 39-117 [facility] Work Phone: Comment on above: PATIENT NOT FASTINGP ERFORMED BY: ESTEFANI [facility] Ifkwis6041 [address] [place] [id number] ALP [Catalytic activity/Vol] 74 U/L Normal 39-117 [facility]; [facility] Internal Medicine Work Phone: Comment on above: PATIENT NOT FASTINGP ERFORMED BY: ESTEFANI [facility] [id number] Marie RoadDublin [place] [id number] ALT [Catalytic activity/Vol] 19 [iU]/L Normal 0-32 [facility] Work Phone: Comment on above: PATIENT NOT FASTINGP ERFORMED BY: ESTEFANI [facility] [id number] Marie RoadDublin [place] [id number] ALT [Catalytic activity/Vol] 19 U/L Normal 0-32 [facility]; [facility] Work Phone: Comment on above: PATIENT NOT FASTINGP ERFORMED BY: CB [facility] [id number] Marie RoadDublin [place] [id number] AST [Catalytic activity/Vol] 18 [iU]/L Normal 0-40 [facility] Work Phone: Comment on above: PATIENT NOT FASTINGP ERFORMED BY: CB [facility] [id number] Marie RoadDublin [place] [id number] AST [Catalytic activity/Vol] 18 U/L Normal 0-40 [facility]; [facility] Work Phone: Comment on above: PATIENT NOT FASTINGP ERFORMED BY: CB [facility] [id number] Marie RoadDublin [place] [id number] Bilirubin [Mass/Vol] 0.4 mg/dL Normal 0.0-1.2 [facility]: Comment on above: PATIENT NOT FASTINGP ERFORMED BY: CB [facility] [id number] Marie RoadDublin [place] [id number] Calcium [Mass/Vol] 9.3 mg/dL Normal 8.7-10.3 [facility] Internal Medicine Work Phone: Comment on above: PATIENT NOT FASTINGP ERFORMED BY: CB [facility] [id number] Marie RoadDublin [place] [id number] Chloride [Moles/Vol] 104 mmol/L Normal 96-106 [facility]: Comment on above: PATIENT NOT FASTINGP ERFORMED BY: CB [facility] [id number] [address] RoadDublin [place] [id number] CO2 [Moles/Vol] 21 mmol/L Normal 20-29 [facility] Internal Medicine Work Phone: Comment on above: PATIENT NOT FASTINGP ERFORMED BY: CB [facility] [id number] [address] RoadDublin [place] [id number] Creatinine [Mass/Vol] 0.69 mg/dL Normal 0.57-1.00 [facility] Internal Medicine Work Phone: Comment on above: PATIENT NOT FASTINGP ERFORMED BY: CB [facility] Nizutc2449 [address] RoadDublin [place] [id number] GFR/1.73 sq M predicted among blacks CKD-EPI (S/P/Bld) [Vol rate/Area] 108 mL/min/1.73 Normal [facility] Work Phone: Comment on above: PATIENT NOT FASTINGP ERFORMED BY: CB [facility] [id number] [address] RoadDublin [place] [id number] GFR/1.73 sq M predicted among non-blacks CKD-EPI (S/P/Bld) [Vol rate/Area] 94 mL/min/1.73 Normal [facility] Work Phone: Comment on above: PATIENT NOT FASTINGP ERFORMED BY: ESTEFANI [facility] [id number] Marie RoadDuin [place] [id number] Globulin (S) [Mass/Vol] 2.6 g/dL Normal 1.5-4.5 [facility] [[email or web address] Internal Medicine Work Phone: Comment on above: PATIENT NOT FASTINGP ERFORMED BY: CB [facility] [id number] [address] RoadDublin [place] [id number] Glucose [Mass/Vol] 81 mg/dL Normal 65-99 [facility] Internal Medicine Work Phone: Comment on above: PATIENT NOT FASTINGP ERFORMED BY: ESTEFANI [facility] [id number] Marie RoadUnc Health [facility]inghamin [place] [id number] Potassium [Moles/Vol] 4.6 mmol/L Normal 3.5-5.2 [facility] Internal Medicine Work Phone: Comment on above: PATIENT NOT FASTINGP ERFORMED BY: ESTEFANI [facility] Momnyi[address]67 [address] [facility] [place] [id number] Protein [Mass/Vol] 7.2 g/dL Normal 6.0-8.5 [facility] Internal Medicine Work Phone: Comment on above: PATIENT NOT FASTINGP ERFORMED BY: ESTEFANI [facility] [id number] [address] [facility] [id number] Sodium [Moles/Vol] 142 mmol/L Normal 134-144 [facility] Internal Medicine Work Phone: Comment on above: PATIENT NOT FASTINGP ERFORMED BY: ESTEFANI [facility] [id number] [address] [facility] [id number] Urea nitrogen [Mass/Vol] 21 mg/dL Normal 8-27 [facility] [[email or web address]] Internal Medicine Work Phone: Comment on above: PATIENT NOT FASTINGP ERFORMED BY: ESTEFANI [facility] [id number] [address] [facility] [place] [id number] Urea nitrogen/Creatinine [Mass ratio] 30 mg/mg Abnormal 12-28 [facility] Work Phone: Comment on above: PATIENT NOT FASTINGP ERFORMED BY: ESTEFANI [facility] [id number] Marie RoadDublin [place] [id number] Sed Rate Erythrocyte (31107) Ordered By: Veneer Gluer on 05-03-2019 ESR (Bld) [Velocity] 5 mm/h Normal 0-40 [facility] Internal Medicine Work Phone: Comment on above: PATIENT NOT FASTINGP ERFORMED BY: ESTEFANI [facility] [id number] [facility] [id number] Vital Signs Date Time Vital Sign Value Performing Clinician Facility 01-03-2025 13:03-0400 Diastolic blood pressure 94 mm[Hg] Dr. Leonidas Traore MD Work Phone: [facility] 01-03-2025 13:03-0400 Systolic blood pressure 174 mm[Hg] Dr. Leonidas Traore MD Work Phone: [facility] 01-03-2025 12:53-0400 Body height 162.[address] Leonidas Traore MD Work Phone: [facility] 01-03-2025 12:53-0400 Body mass index (BMI) [Ratio] 31 kg/m2 Dr. Leonidas Traore MD Work Phone: [facility] 01-03-2025 12:53-0400 Body weight 82.[address] Leonidas Traore MD Work Phone: [facility] 01-03-2025 12:53-0400 Heart rate 82 /min Dr. Leonidas Traore MD Work Phone: [facility] 01-03-2025 12:53-0400 Respiratory rate 16 /min Dr. Leonidas Traore MD Work Phone: [facility] 01-03-2025 12:13-0400 Body mass index (BMI) [Ratio] 29.3 kg/m2 Dr. Leonidas Traore MD Work Phone: [facility] 01-03-2025 12:01-0400 Body weight 77.[address] Leonidas Traore MD Work Phone: [facility] 01-03-2025 11:26-0400 Diastolic blood pressure 82 mm[Hg] Dr. Leonidas Traore MD Work Phone: [facility] 01-03-2025 11:26-0400 Heart rate 95 /min Dr. Leonidas Traore MD Work Phone: [facility] 01-03-2025 11:26-0400 SaO2% (BldA) [Mass fraction] 96 % Dr. Leonidas Traore MD Work Phone: [facility] 01-03-2025 11:26-0400 Systolic blood pressure 160 mm[Hg] Dr. Leonidas Traore MD Work Phone: [facility] 12-29-2024 14:35-0400 Body temperature 97.8 [degF] Dr. Leonidas Traore MD Work Phone: [facility] 12-29-2024 14:35-0400 Diastolic blood pressure 89 mm[Hg] Dr. Leonidas Traore MD Work Phone: [facility] 12-29-2024 14:35-0400 Heart rate 74 /min Dr. Leonidas Traore MD Work Phone: [facility] 12-29-2024 14:35-0400 Respiratory rate 18 /min Dr. Leonidas Traore MD Work Phone: [facility] 12-29-2024 14:35-0400 SaO2% (BldA) [Mass fraction] 95 % Dr. Leonidas Traore MD Work Phone: [facility] 12-29-2024 14:35-0400 Systolic blood pressure 157 mm[Hg] Dr. Leonidas Traore MD Work Phone: [facility] 12-29-2024 04:56-0400 Body mass index (BMI) [Ratio] 33.2 kg/m2 Dr. Leonidas Traore MD Work Phone: [facility] 12-29-2024 04:56-0400 Body weight 87.[address] Leonidas Traore MD Work Phone: [facility] 12-28-2024 21:07-0400 Inhaled oxygen flow rate 2 L/min Dr. Leonidas Traore MD Work Phone: [facility] 12-28-2024 12:53-0400 Body height 162.[address] Leonidas Traore MD Work Phone: [facility] 12-28-2024 09:36-0400 Body temperature 98.2 [degF] Dr. Leonidas Traore MD Work Phone: [facility] 12-28-2024 09:36-0400 Diastolic blood pressure 103 mm[Hg] Dr. Leonidas Traore MD Work Phone: [facility] 12-28-2024 09:36-0400 Heart rate 78 /min Dr. Leonidas Traore MD Work Phone: [facility] 12-28-2024 09:36-0400 Respiratory rate 19 /min Dr. Leonidas Traore MD Work Phone: [facility] 12-28-2024 09:36-0400 SaO2% (BldA) [Mass fraction] 95 % Dr. Leonidas Traore MD Work Phone: [facility] 12-28-2024 09:36-0400 Systolic blood pressure 189 mm[Hg] Dr. Leonidas Traore MD Work Phone: [facility] 12-28-2024 05:19-0400 Body height 162.[address] Leonidas Traore MD Work Phone: [facility] 12-28-2024 05:19-0400 Body mass index (BMI) [Ratio] 32.5 kg/m2 Dr. Leonidas Traore MD Work Phone: [facility] 12-28-2024 05:19-0400 Body weight 85.[address] Leonidas Traore MD Work Phone: [facility] 09-12-2024 14:52-0500 Diastolic blood pressure 108 mm[Hg] Dr. Leonidas Traore MD Work Phone: [facility] 09-12-2024 14:52-0500 Systolic blood pressure 178 mm[Hg] Dr. Leonidas Traore MD Work Phone: [facility] 09-12-2024 14:12-0500 Body temperature 98.4 [degF] Dr. Leonidas Traore MD Work Phone: [facility] 09-12-2024 14:12-0500 Body weight 80.[address] Leonidas Traore MD Work Phone: [facility] 09-12-2024 14:12-0500 Heart rate 104 /min Dr. Leonidas Traore MD Work Phone: [facility] 09-12-2024 14:12-0500 Respiratory rate 16 /min Dr. Leonidas Traore MD Work Phone: [facility] 09-12-2024 14:12-0500 SaO2% (BldA) [Mass fraction] 93 % Dr. Leonidas Traore MD Work Phone: [facility] 08-08-2024 13:38-0500 Body height 162.[address] Leonidas Traore MD Work Phone: [facility] 08-08-2024 13:38-0500 Body mass index (BMI) [Ratio] 30.2 kg/m2 Dr. Leonidas Traore MD Work Phone: [facility] 08-08-2024 13:38-0500 Body temperature 98 [degF] Dr. Leonidas Traore MD Work Phone: [facility] 08-08-2024 13:38-0500 Body weight [address] Leonidas Traore MD Work Phone: [facility] 08-08-2024 13:38-0500 Diastolic blood pressure 80 mm[Hg] Dr. Leonidas Traore MD Work Phone: [facility] 08-08-2024 13:38-0500 Heart rate 110 /min Dr. Leonidas Traore MD Work Phone: [facility] 08-08-2024 13:38-0500 Respiratory rate 18 /min Dr. Leonidas Traore MD Work Phone: [facility] 08-08-2024 13:38-0500 SaO2% (BldA) [Mass fraction] 95 % Dr. Leonidas Traore MD Work Phone: [facility] 08-08-2024 13:38-0500 Systolic blood pressure 148 mm[Hg] Dr. Leonidas Traore MD Work Phone: [facility] 06-05-2024 13:39-0500 Body mass index (BMI) [Ratio] 28.54 kg/m2 Krislyn Aberegg PA Work Phone: [facility] 06-05-2024 13:39-0500 Body temperature 98.2 [degF] Krislyn Aberegg PA Work Phone: [facility] 06-05-2024 13:39-0500 Body weight 77.8 kg Krislyn Aberegg PA Work Phone: [facility] 06-05-2024 13:39-0500 Diastolic blood pressure 80 mm[Hg] Krislyn Aberegg PA Work Phone: [facility] 06-05-2024 13:39-0500 Heart rate 100 /min Krislyn Aberegg PA Work Phone: [facility] 06-05-2024 13:39-0500 Respiratory rate 18 /min Kramandaroxanne Meragg PA Work Phone: [facility] 06-05-2024 13:39-0500 SaO2% (BldA) [Mass fraction] 94 % Kramandalyevelyn Aberegg PA Work Phone: [facility] 06-05-2024 13:39-0500 Systolic blood pressure 126 mm[Hg] Krjohnevelyn marrygg PA Work Phone: [facility] 12-20-2023 14:13-0400 Body height 165.1 cm Joanne Neal MD Work Phone: [facility] 12-20-2023 14:13-0400 Body mass index (BMI) [Ratio] 24.96 kg/m2 Joanne Neal MD Work Phone: [facility] 12-20-2023 14:13-0400 Body weight 68.04 kg Joanne Neal MD Work Phone: [facility] 12-20-2023 14:13-0400 Diastolic blood pressure 86 mm[Hg] Joanne Neal MD Work Phone: [facility] 12-20-2023 14:13-0400 Systolic blood pressure 142 mm[Hg] Joanne Neal MD Work Phone: [facility] 11-11-2023 16:00-0400 Body temperature 97.6 [degF] Dr. Leonidas Traore Work Phone: [facility] 11-11-2023 16:00-0400 Diastolic blood pressure 82 mm[Hg] Dr. Leonidas Traore Work Phone: [facility] 11-11-2023 16:00-0400 Heart rate 62 /min Dr. Leonidas Traore Work Phone: [facility] 11-11-2023 16:00-0400 Respiratory rate 16 /min Dr. Leonidas Traore Work Phone: [facility] 11-11-2023 16:00-0400 SaO2% (BldA) [Mass fraction] 96 % Dr. Leonidas Traore Work Phone: [facility] 11-11-2023 16:00-0400 Systolic blood pressure 100 mm[Hg] Dr. Leonidas Traore Work Phone: [facility] 11-11-2023 15:30-0400 Body height 162.[address] Leonidas Traore Work Phone: [facility] 11-11-2023 15:30-0400 Body weight [address] Leonidas Traore Work Phone: [facility] 11-11-2023 14:46-0400 Body mass index (BMI) [Ratio] 29.1 kg/m2 Dr. Leonidas Traore Work Phone: [facility] 11-10-2023 16:06-0400 Body temperature 98 [degF] Dr. Leonidas Traore Work Phone: [facility] 11-10-2023 16:06-0400 Diastolic blood pressure 75 mm[Hg] Dr. Leonidas Traore Work Phone: [facility] 11-10-2023 16:06-0400 Heart rate 65 /min Dr. Leonidas Traore Work Phone: [facility] 11-10-2023 16:06-0400 Respiratory rate 16 /min Dr. Leonidas Traore Work Phone: [facility] 11-10-2023 16:06-0400 SaO2% (BldA) [Mass fraction] 98 % Dr. Leonidas Traore Work Phone: [facility] 11-10-2023 16:06-0400 Systolic blood pressure 146 mm[Hg] Dr. Leonidas Traore Work Phone: [facility] 11-10-2023 14:12-0400 Body height 162.[address] Leonidas Traore Work Phone: [facility] 11-10-2023 14:12-0400 Body mass index (BMI) [Ratio] 29.4 kg/m2 Dr. Leonidas Traore Work Phone: [facility] 11-10-2023 14:12-0400 Body weight 77.[address] Leonidas Traore Work Phone: [facility] 10-31-2023 10:25-0400 Body height 162.[address] Leonidas Traore Work Phone: [facility] 10-31-2023 10:25-0400 Body mass index (BMI) [Ratio] 29 kg/m2 Dr. Leonidas Traore Work Phone: [facility] 10-31-2023 10:25-0400 Body temperature 99.3 [degF] Dr. Leonidas Traore Work Phone: [facility] 10-31-2023 10:25-0400 Body weight 76.[address] Leonidas Traore Work Phone: [facility] 10-31-2023 10:25-0400 Diastolic blood pressure 80 mm[Hg] Dr. Leonidas Traore Work Phone: [facility] 10-31-2023 10:25-0400 Heart rate 100 /min Dr. Leonidas Traore Work Phone: [facility] 10-31-2023 10:25-0400 Respiratory rate 18 /min Dr. Leonidas Traore Work Phone: [facility] 10-31-2023 10:25-0400 SaO2% (BldA) [Mass fraction] 93 % Dr. Leonidas Traore Work Phone: [facility] 10-31-2023 10:25-0400 Systolic blood pressure 126 mm[Hg] Dr. Leonidas Traore Work Phone: [facility] 07-14-2023 10:05-0500 Body mass index (BMI) [Ratio] 29.7 kg/m2 Dr. Leonidas Traore Work Phone: [facility] 07-14-2023 10:05-0500 Body temperature 98.6 [degF] Dr. Leonidas Traore Work Phone: [facility] 07-14-2023 10:05-0500 Body weight 78.[address] Leonidas Traore Work Phone: [facility] 07-14-2023 10:05-0500 Diastolic blood pressure 120 mm[Hg] Dr. Leonidas Traore Work Phone: [facility] 07-14-2023 10:05-0500 Heart rate 108 /min Dr. Leonidas Traore Work Phone: [facility] 07-14-2023 10:05-0500 Respiratory rate 17 /min Dr. Leonidas Traore Work Phone: [facility] 07-14-2023 10:05-0500 SaO2% (BldA) [Mass fraction] 94 % Dr. Leonidas Traore Work Phone: [facility] 07-14-2023 10:05-0500 Systolic blood pressure 184 mm[Hg] Dr. Leonidas Traore Work Phone: [facility] 05-04-2022 11:00-0400 Diastolic blood pressure 132 mm[Hg] Dr. Leonidas Traore Work Phone: [facility] Work Phone: 05-04-2022 11:00-0400 Systolic blood pressure 224 mm[Hg] Dr. Leonidas Traore Work Phone: [facility] Work Phone: 05-04-2022 10:12-0400 Body height 165.[address] Leonidas Traore Work Phone: [facility] Work Phone: 05-04-2022 10:12-0400 Body mass index (BMI) [Ratio] 28.8 kg/m2 Dr. Leonidas Traore Work Phone: [facility] Work Phone: 05-04-2022 10:12-0400 Body temperature 97.2 [degF] Dr. Leonidas Traore Work Phone: [facility] Work Phone: 05-04-2022 10:12-0400 Body weight 78.[address] Leonidas Traore Work Phone: [facility] Work Phone: 05-04-2022 10:12-0400 Heart rate 98 /min Dr. Leonidas Traore Work Phone: [facility] Work Phone: 05-04-2022 10:12-0400 Respiratory rate 18 /min Dr. Leonidas Traore Work Phone: [facility] Work Phone: 05-04-2022 10:12-0400 SaO2% (BldA) [Mass fraction] 91 % Dr. Leonidas Traore Work Phone: [facility] Work Phone: 04-29-2022 14:08-0400 Body mass index (BMI) [Ratio] 29.2 kg/m2 Dr. Leonidas Traore Work Phone: [facility] Work Phone: 04-29-2022 14:08-0400 Body temperature 98.2 [degF] Dr. Leonidas Traore Work Phone: [facility] Work Phone: 04-29-2022 14:08-0400 Body weight 77.[address] Leonidas Traore Work Phone: [facility] Work Phone: 04-29-2022 14:08-0400 Diastolic blood pressure 100 mm[Hg] Dr. Leonidas Traore Work Phone: [facility] Work Phone: 04-29-2022 14:08-0400 Heart rate 102 /min Dr. Leonidas Traore Work Phone: [facility] Work Phone: 04-29-2022 14:08-0400 Respiratory rate 16 /min Dr. Leonidas Traore Work Phone: [facility] Work Phone: 04-29-2022 14:08-0400 SaO2% (BldA) [Mass fraction] 93 % Dr. Leonidas Traore Work Phone: [facility] Work Phone: 04-29-2022 14:08-0400 Systolic blood pressure 142 mm[Hg] Dr. Leonidas Traore Work Phone: [facility] Work Phone: 04-29-2022 13:22-0400 Body mass index (BMI) [Ratio] 29.3 kg/m2 Dr. Leonidas Traore Work Phone: [facility] Work Phone: 04-29-2022 13:22-0400 Body weight 77.[address] Leonidas Traore Work Phone: [facility] Work Phone: 04-29-2022 13:22-0400 Diastolic blood pressure 104 mm[Hg] Dr. Leonidas Traore Work Phone: [facility] Work Phone: 04-29-2022 13:22-0400 Heart rate 95 /min Dr. Leonidas Traore Work Phone: [facility] Work Phone: 04-29-2022 13:22-0400 Respiratory rate 18 /min Dr. Leonidas Traore Work Phone: [facility] Work Phone: 04-29-2022 13:22-0400 SaO2% (BldA) [Mass fraction] 92 % Dr. Leonidas Traore Work Phone: [facility] Work Phone: 04-29-2022 13:22-0400 Systolic blood pressure 165 mm[Hg] Dr. Leonidas Traore Work Phone: [facility] Work Phone: 10-08-2021 12:36-0400 Body temperature 98.2 [degF] Abran Granados MD Work Phone: [facility] 10-08-2021 12:36-0400 Body weight 76.48 kg Abran Granados MD Work Phone: [facility] 10-08-2021 12:36-0400 Diastolic blood pressure 88 mm[Hg] Abran Granados MD Work Phone: [facility] 10-08-2021 12:36-0400 Heart rate 86 /min Abran Granados MD Work Phone: [facility] 10-08-2021 12:36-0400 Respiratory rate 16 /min Abran Granados MD Work Phone: [facility] 10-08-2021 12:36-0400 SaO2% (BldA) [Mass fraction] 95 % Abran Granados MD Work Phone: [facility] 10-08-2021 12:36-0400 Systolic blood pressure 136 mm[Hg] Abran Granados MD Work Phone: [facility] 06-20-2020 10:39-0500 BMI (Body Mass Index) 25.63 kg/m2 Jenny Cross NURSING UNIT MANAGER [facility]; [facility] Work Phone: 06-20-2020 10:39-0500 Body weight 69.85 kg [facility]; [facility] Work Phone: 06-20-2020 10:39-0500 BSA (Body Surface Area) 1.77 m2 [facility]; [facility] Work Phone: 06-20-2020 10:39-0500 Height 165.1 cm [facility]; [facility] Work Phone: 11-30-2019 14:00-0400 BP Diastolic 77 mm[Hg] [facility] , [place] 11-30-2019 14:00-0400 BP Systolic 124 mm[Hg] [facility] , [place] 11-30-2019 14:00-0400 Pulse (Heart Rate) 74 /min [facility], [place] 11-30-2019 14:00-0400 Respiratory Rate 17 /min [facility] [place] 11-30-2019 13:30-0400 Pulse Oximetry 98 % Guido Bishop [facility] , [place] 11-30-2019 13:20-0400 Body Temperature 97.7 [degF] [facility] [place] 11-30-2019 09:40-0400 BMI (Body Mass Index) 26.29 kg/m2 [facility] 11-30-2019 09:40-0400 Body weight 71.[address] [facility] , [place] 11-30-2019 09:40-0400 Height 165.1 cm Guido Bishop [facility] , [place] 11-29-2019 09:32-0400 BP Diastolic 101 mm[Hg] Guido Bishop [facility] , [place] 11-29-2019 09:32-0400 BP Systolic 164 mm[Hg] [facility] , [place] 11-29-2019 09:32-0400 Pulse (Heart Rate) 87 /min [facility], [place] 11-29-2019 09:08-0400 Body Temperature 99.5 [degF] Guido Bishop [facility], [place] 11-29-2019 09:08-0400 Pulse Oximetry 98 % Guido Bishop [facility] , [place] 11-29-2019 09:08-0400 Respiratory Rate 16 /min Guido Bishop [facility], [place] 11-29-2019 09:00-0400 BMI (Body Mass Index) 26.29 kg/m2 Guiod [facility], [place] 11-29-2019 09:00-0400 Body weight 71.67 kg Guido Bishop [facility] , [place] 11-29-2019 09:00-0400 Height 165.1 cm Guido Bishop [facility] , [place] 05-03-2019 09:58-0400 BMI (Body Mass Index) 25.63 [...] 05-03-2019 09:58-0400 Pulse (Heart Rate) 72 /min Yoli Reyna RN [facility] Work Phone: Comment on above: Pattern: Regular down 6 pounds 05-03-2019 09:58-0400 Pulse Oximetry 98 % Kelly Ma [facility] Work Phone: Comment on [...] 02-19-2019 11:16-0400 Pulse Oximetry 95 % Kelly Ma [facility] Work Phone: Comment on above: Room air 02-19-2019 11:16-0400 Respiratory Rate 18 /min Minda Salazar RN [facility] Work Phone: Comment on above: Pattern: Unlabored 02-19-2019 11:16-0400 SaO2% (BldA) [Mass fraction] 95 % Minda Salazar RN [facility]; [facility] Work Phone: Comment on above: Room air Encounters Encounter Date Encounter Type Care Provider Facility Start: 01-03-2025 End: 01-03-[address] Leonidas Traore MD Work Phone: [facility] Work Phone: Start: 01-03-2025 End: 01-03-2025 Patient encounter procedure Edilia BONNER -[facility] Work Phone: Start: 01-03-[address] Alonzo Blackburn MD -[facility] Work Phone: Start: 12-31-2024 Non-patient / Non-visit Dr. Kellen Blackburn MD -[facility] Start: 12-31-[address] Leonidas Traore MD Work Phone: [facility] Work Phone: Start: 12-29-2024 Non-patient / Non-visit Dr. Temi thacker MD -[facility] Work Phone: Start: 12-29-2024 Non-patient / Non-visit Dr. Kellen Blackburn MD -[facility] Start: 12-28-2024 ambulatory Leonidas Thomasoni ty:[facility] Start: 12-28-2024 Non-patient / Non-visit Dr. Anna Fernandez MD -[facility] Start: 12-28-2024 Non-patient / Non-visit [facility]. Kellen Blackburn MD -[facility] Start: 12-28-2024 ambulatory Efewongbe Oleghe Facili ty:[facility] Start: 12-28-2024 End: 12-29-2024 Evaluation and management of inpatient Dr. Temi Banda MD -Progressive Care Unit Work Phone: Start: 11-14-2024 Non-patient / Non-visit Bárbara Dobbins stefanie LINOTYPER-C -[facility] Work Phone: Start: 11-14-2024 ambulatory Efewongbe Oleghe Facili ty:[facility] Start: 09-18-2024 ambulatory Efewongbe Oleghe Facili ty:[facility] Start: 09-12-2024 End: 09-12-2024 Patient encounter procedure Birdie BONNER -[facility] Work Phone: Start: 09-12-2024 End: 09-12-2024 ambulatory Efewongbe Olelaste Facility:[facility] Start: 08-31-2024 End: 08-31-[address] Leonidas Traore MD Work Phone: [facility] Work Phone: Start: 08-31-2024 End: 08-31-[address] Katie Washington MD -Laboratory, Specimen Work Phone: Start: 08-31-2024 End: 08-31-2024 Patient encounter procedure Wolf BONNER -[facility] Work Phone: Start: 08-31-2024 End: 08-31-2024 ambulatory Efewongbe Oleghe Facility:[facility] Start: 08-31-2024 End: 08-31-2024 [facility] Start: 08-08-2024 End: 08-08-[address] Leonidas Traore MD -[facility] Work Phone: Start: 08-08-2024 End: 08-08-2024 [facility] Start: 08-08-2024 End: 08-08-2024 ambulatory Efewongbe Oleghe Facility:[facility] Start: 06-05-2024 End: 06-05-2024 Subsequent hospital visit by physician Julia [facility] Work Phone: Radiology Comment on above: Acute cough [R05.1] Start: 06-05-2024 End: 06-05-2024 ambulatory LEONIDAS MALINMakeda Facility:[facility] Start: 06-05-2024 End: 06-05-2024 Patient encounter procedure Roxana BONNER Work Phone: [facility] Comment on above: Acute cough (Primary Dx); COPD with exacerbation (HCC) Start: 03-14-2024 [facility] Start: 12-20-2023 End: 12-20-2023 Office outpatient new 30 minutes Joanne Neal MD Work Phone: [facility] Comment on above: Primary osteoarthrit is of left hip (Primary Dx); Left hip pain Start: 12-20-2023 End: 12-20-2023 Subsequent hospital visit by physician Joanne Neal MD Work Phone: [facility] [place] [facility] Comment on above: Left hip pain Start: 12-20-2023 End: 12-20-2023 ambulatory [facility] Start: 11-11-2023 Non-patient / Non-visit Dr. Kynug Traore Work Phone: [facility] Work Phone: Start: 11-11-2023 Non-patient / Non-visit Dr. Kyung Traore Work Phone: [facility] Start: 11-10-2023 Non-patient / Non-visit Dr. Kyung Traore Work Phone: [facility] Work Phone: Start: 11-10-2023 End: 11-11-2023 Evaluation and management of inpatient Dr. Leonidas Traore Work Phone: [facility]-Progressive Care Unit Work Phone: Start: 11-10-2023 End: 11-11-[address] Leonidas Traore Work Phone: [facility] Work Phone: Start: 10-31-[address] Makeda Traore Work Phone: [facility] Start: 10-31-2023 End: 10-31-[address] Leonidas Traore Work Phone: [facility] Work Phone: Start: 10-31-2023 End: 10-31-[address] Leonidas Traore Work Phone: [facility] Work Phone: Start: 07-14-2023 End: 07-14-[address] Leonidas Traore Work Phone: [facility] Work Phone: Start: 05-28-2022 Non-patient / Non-visit Dr. Kyung Traore Work Phone: [facility] Start: 05-26-2022 End: 05-26-[address] Leonidas Traore Work Phone: [facility] Work Phone: Start: 05-26-2022 End: 05-26-[address] Leonidas Traore Work Phone: [facility] Start: 05-25-2022 Non-patient / Non-visit Dr. Kyung Traore Work Phone: [facility] Start: 05-25-2022 End: 05-25-[address] Leonidas Traore Work Phone: [facility] Work Phone: Start: 05-25-2022 End: 05-25-[address] Leonidas Traore Work Phone: [facility]-Cardiovascular Services Start: 05-04-2022 End: 05-04-[address] Leonidas Traore Work Phone: [facility]-Pulmonary Medicine [facility] Start: 05-03-2022 End: 05-03-[address] Leonidas Traore Work Phone: [facility]-Laboratory Start: 04-29-2022 End: 04-29-[address] Leonidas Traore Work Phone: [facility] Start: 10-08-2021 End: 10-08-2021 Patient encounter procedure Abran Granados MD Work Phone: [facility] Comment on above: Impacted cerumen of right ear (Primary Dx) Start: 03-05-[address] Makeda Traore Work Phone: [facility] Start: 06-20-2020 End: 06-20-2020 Office outpatient visit 15 minutes Kelly [facility] Start: 06-20-2020 Review Kelly Ma [facility] Start: 11-30-2019 End: 11-30-2019 Subsequent hospital visit by physician Guido Bishop Work Phone: [facility] General Surgery Comment on above: Closed fracture of p roximal end of left humerus with routine healing, unspecified fracture morphology, subsequent encounter (Primary Dx) Start: 11-29-2019 End: 11-29-2019 Subsequent hospital visit by physician Guido Bishop Work Phone: [facility] Pre-Admit Testing Comment on above: Arrived Start: 05-30-2019 End: 05-30-2019 Phone Encounter Kelly Ma [facility] Work[facility] Medicine Start: 05-08-2019 End: 05-08-2019 Phone Encounter Kelly Ma [email or web address] Cushion Worker al Medicine Start: 05-08-2019 End: 05-08-2019 Phone Encounter Kelly Ma [email or web address] Cushion Worker al Medicine Start: 05-03-2019 End: 05-03-2019 Office outpatient visit 15 minutes Kelly Ma [email or web address] Internal Medicine Start: 02-19-2019 End: 02-19-2019 Office outpatient new 45 minutes Kelly Ma [email or web address] Internal Medicine Procedures Date Procedure Procedure Detail Performing Clinician Start: 12-29-[address] Leonidas Traore MD Work Phone: Start: 12-28-2024 Coagulation time, activated Dr. Leonidas Traore MD Work Phone: Start: 12-28-2024 X-ray of chest, PA and lateral views Dr. Leonidas Traore MD Work Phone: Start: 12-28-2024 D-dimer assay, quantitative Dr. Leonidas Traore MD Work Phone: Comment on above: D-Dimer ELEVATED (>0.49): Additional sharmila dies and clinicalassessments are indicated to conclude diagnosis of:Deep Vein Thrombosis (DVT) or Pulmonary Embolism (PE)CRITICAL VALUE CALLED TO 12/28/24 0620 Marga Roca.RESULTS READ BACK BY [facility]. Start: 12-28-[address] Leonidas Traore MD Work Phone: Start: 08-31-2024 Urnls dip stick/tablet reagent auto microscopy Dr. Leonidas Traore MD Work Phone: Start: 08-31-[address] Leonidas Traore MD Work Phone: Start: 08-08-[address] Leonidas Traore MD Work Phone: Start: 06-05-2024 Radiologic exam chest 2 views Roxana Garcia PA Work Phone: Start: 12-20-2023 Radex [...] Office Visit Procedure Note: See Note; NOTES: [facility] [address] [place] [address] [place] [address] OFFICE VISIT Date of Service: 12/14/21 MR#: [id number] Acct: [id number] Name: GIOVANNI LOMAX Rep #: [id number] : 1955 Provider: Dr. Leonidas yin MD Age/Sex: 66/F Location: [facility] [place] Status: Signed Intake Vital Signs 12/14/21 15:16 Height 5 ft 4 in Weight: 164 lb BMI 28.1 BP 190/130 H Blood Pressure Location Lt brachial Position Sitting Respiration 18 Pulse 86 Pulse Source Monitor Temp 97.7 F L Temp Source Temporal Pulse Oximetry (%) 100 Oxygen Delivery Method room air Intake Visit Reasons: LINOTYPER, EST. 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 Chief Complaint: [...] Anxiety and depression Atherosclerotic heart disease of [place] coronary artery without angina pectoris Chronic pain [...] HPI HPI Chief Complaint: Establish care Details: IGOVANNI LOMAX, is a 66 F who presents [...] distress Orientation: alert, awake and oriented x3 HENMT Head: normal to inspection, normocephalic and atraumatic [...] MD: Concern for Dupuytren's contracture, referred to [facility] hand specialist. This note was generated with [employer] dictation software. It may contain incorrect words, spelling, and punctuation that were not noted in checking the note before signing. Plan Details Other Medications: New: duloxetine 30 mg PO BID 60 caps 1RF 12/15/21 1308 <Electronically signed by Leonidas Traore MD> Date Leonidas Traore MD Cosigner Signature: Date (if applicable) CC: Kelly Ma DO Work Phone: Start: 03-05-2021 End: 03-05-2021 Cardiology Visit Report Comments: See Note; NOTES: [facility] [address] [place] [address] OFFICE VISIT Date of Service: 03/05/21 MR#: [id number] Acct: [id number] Name: GIOVANNI LOMAX Rep #: [id number] : 1955 Provider: Dr. Michael benson MD Age/Sex: 66/F Location: [facility] Status: Signed HPI HPI History of Present Illness Details: This is a 66-year-old white female who presents today for outpatient cardiovascular follow- up with history of underlying CAD status post ID status post PTCA/stent superimposed on hyperlipidemia and [...] Intake Visit Reasons: SURG CLEARANCE, DJN PT Motel Clerk Required: No Accompanied by: Self Allergies adhesive [...] DAILY #90 tab 01/15/21 [Rx Confirmed 03/05/21] [facility] Medical History (Updated 03/05/21 @ 11:[address] Michael Zheng MD) Atherosclerotic heart disease of [place] coronary artery without angina pectoris Hyperlipidemia Hypertension [...] and Plan (1) Atherosclerotic heart disease of [place] coronary artery without angina pectoris: Status: Chronic Qualifiers: [place] vs. transplanted heart: [place] heart Qualified Code(s): I25.10 - Atherosclerotic heart disease of [place] coronary artery without angina pectoris Comment: Segmented [...] was completed and 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 Emergent reprep and relook showed acute stent thrombosis. Emergent PTCA with 2.0 x 12 balloon, followed by Lindside catheter, followed by IVUS performed. 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 Emergent reprep and relook showed acute stent thrombosis. Emergent PTCA with 2.0 x 12 balloon, followed by Lindside catheter, followed by IVUS performed. Pt given [...] does have a upcoming dental evaluation through [facility]. According to the request she is going [...] vis,est,level 5 Diagnoses Atherosclerotic heart disease of [place] coronary artery without angina pectoris I25.10 [place] vs. transplanted heart: [place] heart Stented coronary artery Z95.5 Hyperlipidemia E78.5 Hyperlipidemia type: unspecified Hypertension I10 Hypertension type: essential hypertension Pre-op chest exam Z01.811 Coding Level of Care Code Off vis,est,level 5 Diagnoses Atherosclerotic heart disease of [place] coronary artery without angina pectoris I25.10 [place] vs. 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 Emergent reprep and relook showed acute stent thrombosis. Emergent PTCA with 2.0 x 12 balloon, followed by Lindside catheter, followed by IVUS performed. Pt given [...] X-Ray Pulmonary: No Data to Display 03/05/21 1157 <Electronically signed by Michael Zheng MD> Date Michael Zheng MD Cosigner Signature: Date (if applicable) CC: Dr. Kelly Ma, DO Kelly Ma DO Work Phone: Start: 10-30-2020 End: 10-30-2020 Cardiology Visit Report Comments: See Note; NOTES: [facility] [address] [place] [address] OFFICE VISIT Date of Service: 10/30/20 MR#: [id number] Acct: [id number] Name: GIOVANNI LOMAX Rep #: [id number] : 1955 Provider: KAILEY Hernandez Age/Sex: 65/F Location: [facility] Status: Signed HPI HPI History of Present [...] completed but prior to patient leaving the [employer] [place] she developed recurrent chest pain and ST [...] Auscultation Intake Visit Reasons: 2-4 WK F/U Motel Clerk Required: No Accompanied by: None Is patient [...] 10/30/20] Ejection fraction %: 65 to 70 PFSH Medical History Hyperlipidemia (Chronic) Atherosclerotic heart disease of [place] coronary artery without angina pectoris (Chronic) Hypertension (Chronic) ST elevation myocardial infarction (STEMI) (Resolved) Surgical History Stented coronary artery (Chronic 01/10/19) Family History Father , 52 Myocardial infarction Brother Myocardial infarction CAD (coronary artery disease) CABG and stents Social History (Updated 10/30/20 @ 14:10 by Edilia BONNER, PA) Smoking Status: Current [...] normal affect Assessment Plan 1. 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 Emergent reprep and relook showed acute stent thrombosis. Emergent PTCA with 2.0 x 12 balloon, followed by Lindside catheter, followed by IVUS performed. Pt given [...] Code Off vis,est,level 3 Diagnoses Atherosclerosis of [place] coronary artery of [place] heart without angina pectoris I25.10 ?[place] vs. transplanted heart: [place] heart Essential hypertension I10 ?Hypertension type: essential hypertension Hyperlipidemia, unspecified hyperlipidemia type E78.5 ?Hyperlipidemia type: unspecified Coding Level of Care Code Off vis,est,level 3 Diagnoses Atherosclerosis of [place] coronary artery of [place] heart without angina pectoris I25.10 ?[place] vs. 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 Emergent reprep and relook showed acute stent thrombosis. Emergent PTCA with 2.0 x 12 balloon, followed by Lindside catheter, followed by IVUS performed. Pt given [...] Signature: Date (if applicable) CC: Dr. Kelly Ma, DO Kelly Ma DO Work Phone: Start: 09-23-2020 End: 09-23-2020 Cardiology Visit Report Comments: See Note; NOTES: [facility] [address] [place] [address]. [address] [place] [address] OFFICE VISIT Date of Service: 09/23/20 MR#: [id number] Acct: [id number] Name: GIOVANNI LOMAX Rep #: [id number] : 1955 Provider: JEFFREY lewis Age/Sex: 65/F Location: [facility] Status: Signed HPI HPI History of Present [...] completed but prior to patient leaving the [employer] [place] she developed recurrent chest pain and ST [...] 98 Intake Visit Reasons: 2-4 WK F/U Motel Clerk Required: No Accompanied by: None Is patient [...] DAILY #30 tab 09/23/20 [Rx Confirmed 09/23/20] PFSH Medical History (Updated 09/23/20 @ 12:46 by Tracy Myers LINOTYPER, LINOTYPER-C) Hyperlipidemia (Chronic) Atherosclerotic heart disease of [place] coronary artery without angina pectoris (Chronic) Hypertension (Chronic) ST elevation myocardial infarction (STEMI) (Resolved) Surgical History Stented coronary artery (Chronic 01/10/19) Social History (Updated 09/23/20 @ 12:46 by Tracy Myers LINOTYPER, LINOTYPER-C) Smoking Status: Current every day smoker ROS [...] normal affect Assessment Plan 1. 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 Emergent reprep and relook showed acute stent thrombosis. Emergent PTCA with 2.0 x 12 balloon, followed by Lindside catheter, followed by IVUS performed. 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 Emergent reprep and relook showed acute stent thrombosis. Emergent PTCA with 2.0 x 12 balloon, followed by Lindside catheter, followed by IVUS performed. Pt given [...] prior to saving. Follow Up 2-4 Weeks (LINOTYPER/PA) Coding Level of Care Code Off vis,est,level 3 Diagnoses Atherosclerosis of [place] coronary artery of [place] heart without angina pectoris I25.10 ?[place] vs. transplanted heart: [place] heart Stented coronary artery Z95.5 Essential hypertension I10 ?Hypertension type: essential hypertension Hyperlipidemia, unspecified hyperlipidemia type E78.5 ?Hyperlipidemia type: unspecified Coding Level of Care Code Off vis,est,level 3 Diagnoses Atherosclerosis of [place] coronary artery of [place] heart without angina pectoris I25.10 ?[place] vs. 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 Emergent reprep and relook showed acute stent thrombosis. Emergent PTCA with 2.0 x 12 balloon, followed by Lindside catheter, followed by IVUS performed. Pt given [...] 06/28/19 09/23/20 1247 <Electronically signed by Tracy MURPHY> Date Tracy Myers NP, NP-C Cosigner Signature: Date (if applicable) CC: Dr. Kelly Ma, DO Kelly Ma DO Work Phone: Start: 09-04-2020 End: 09-04-2020 Cardiology Visit Report Comments: See Note; NOTES: [facility] [address] [place] [address] OFFICE VISIT Date of Service: 09/04/20 MR#: [id number] Acct: [id number] Name: GIOVANNI LOMAX Rep #: [id number] : 1955 Provider: KAILEY Hernandez Age/Sex: 65/F Location: [facility] Status: Signed HPI [facility] History of Present Illness Details: This is [...] completed but prior to patient leaving the [employer] she developed recurrent chest pain and ST elevation. She was noted to have acute in-stent thrombosis she underwent emergent angioplasty, thrombectomy and IVUS evaluation with additional post stent dilatation. She does have a history of hypertension, hyperlipidemia and tobacco abuse. She does not have any chest discomfort/heaviness/tightn ess. Her exercise tolerance is stable for her [...] 95 Intake Visit Reasons: 6 wk fu Motel Clerk Required: No Accompanied by: None Is patient [...] DAILY #30 tab 09/04/20 [Rx Confirmed 09/04/20] PFSH Medical History Hyperlipidemia (Chronic) Atherosclerotic heart disease of [place] coronary artery without angina pectoris (Chronic) Hypertension [...] normal affect Assessment Plan 1. 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 Emergent reprep and relook showed acute stent thrombosis. Emergent PTCA with 2.0 x 12 balloon, followed by Lindside catheter, followed by IVUS performed. Pt given [...] Code Off vis,est,level 3 Diagnoses Atherosclerosis of [place] coronary artery of [place] heart without angina pectoris I25.10 ?[place] vs. transplanted heart: [place] heart Essential hypertension I10 ?Hypertension type: essential hypertension Hyperlipidemia E78.5 Coding Level of Care Code Off vis,est,level 3 Diagnoses Atherosclerosis of [place] coronary artery of [place] heart without angina pectoris I25.10 ?[place] vs. 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 Emergent reprep and relook showed acute stent thrombosis. Emergent PTCA with 2.0 x 12 balloon, followed by Lindside catheter, followed by IVUS performed. Pt given [...] Signature: Date (if applicable) CC: Dr. Kelly Ma, DO Kelly Ma DO Work Phone: Start: 07-23-2020 End: 07-23-2020 Cardiology Visit Report Comments: See Note; NOTES: [facility] [address] [place] [address] OFFICE VISIT Date of Service: 07/23/20 MR#: [id number] Acct: [id number] Name: GIOVANNI LOMAX Rep #: [id number] : 1955 Provider: KAILEY Hernandez Age/Sex: 65/F [...] completed but prior to patient leaving the [employer] she developed recurrent chest pain and ST elevation. She was noted to have acute in-stent thrombosis she underwent emergent angioplasty, thrombectomy and IVUS evaluation with additional post stent dilatation. She does have a history of hypertension, hyperlipidemia and tobacco abuse. She does not have any chest discomfort/heaviness/tightn ess. Her exercise tolerance is stable for her [...] (%) 98 Intake Visit Reasons: 6 M FU Motel Clerk Required: No Accompanied by: None Is patient [...] DAILY #30 tab 07/23/20 [Rx Confirmed 07/23/20] [facility] Medical History Hyperlipidemia (Chronic) Atherosclerotic heart disease of [place] coronary artery without angina pectoris (Chronic) Hypertension (Chronic) ST elevation myocardial infarction (STEMI) (Resolved) Surgical History Stented coronary artery (Chronic 01/10/19) Social History (Updated 07/23/20 @ 15:13 by Edilia Avilez PA, PA) Smoking Status: Current every day smoker [...] normal affect Assessment Plan 1. 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 Emergent reprep and relook showed acute stent thrombosis. Emergent PTCA with 2.0 x 12 balloon, followed by Lindside catheter, followed by IVUS performed. Pt given [...] Code Off vis,est,level 4 Diagnoses Atherosclerosis of [place] coronary artery of [place] heart without angina pectoris I25.10 ?[place] vs. transplanted heart: [place] heart Essential hypertension I10 ?Hypertension type: essential hypertension Hyperlipidemia E78.5 Restless legs G25.81 Coding Level of Care Code Off vis,est,level 4 Diagnoses Atherosclerosis of [place] coronary artery of [place] heart without angina pectoris I25.10 ?[place] vs. 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 Emergent reprep and relook showed acute stent thrombosis. Emergent PTCA with 2.0 x 12 balloon, followed by Lindside catheter, followed by IVUS performed. Pt given [...] Cholesterol Pending 07/23/20 Diagnostics Echocardiogram 06/28/19 07/23/20 8573 <Electronically signed by Edilia Kapoor> Date Edilia BONNER Cosigner Signature: Date (if applicable) CC: Dr. Kelly Ma, DO Kelly Ma DO Work Phone: Start: 12-10-2019 End: 12-10-2019 Virtual Office Visit Comments: See Note; NOTES: [facility] [address] [place] [address] [place] [address] OFFICE VISIT Date of Service: 12/10/19 MR#: [id number] Acct: [id number] Patient: GIOVANNI LOMAX Rep #: [id number] : 1955 Provider: Dr. Tristen rivas MD Age/Sex: 64/F Location: [facility] [place] Status: Signed Intake Vital Signs 12/10/19 Height 5 ft 5 in 12/10/19 Weight: 150 lb 12/10/19 BMI 25.0 12/10/19 BP 129/81 H 12/10/19 Blood Pressure Location Rt brachial 12/10/19 Position Sitting 12/10/19 Respiration 20 H 12/10/19 Comment Vitals done @ Dr. Guido Bishop's office Intake Visit Reasons: PHONE 6 M FU Chief Complaint: Chest Pain Motel Clerk Required: No Is patient in pain?: No [...] History Hyperlipidemia (Chronic) Atherosclerotic heart disease of [place] coronary artery without angina pectoris (Chronic) Hypertension (Chronic) ST elevation myocardial infarction (STEMI) (Resolved) Surgical History Stented coronary artery (Chronic 01/10/19) Social History (Updated 12/10/19 @ 10:[address] Tristen Mchugh MD) Smoking Status: Current every day smoker HPI HPI Chief Complaint: Chest Pain Details: Patient was informed that this visit will be billed to patient. This visit was conducted during pandemic. Details: This is a 64-year-old female that presents here today for a cardiovascular follow up. Patient presented to [facility] with chest discomfort on January 10, 2019. 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 Emergent reprep and relook showed acute stent thrombosis. Emergent PTCA with 2.0 x 12 balloon, followed by Lindside catheter, followed by IVUS performed. Pt given [...] 65%. She does not have any chest discomfort/heaviness/tightn ess. Her exercise tolerance is stable for her [...] sleep pattern, change in appetite or other (Fell and broke R arm, Dr. Guido Bishop did surgery in [place] ) Eyes Eyes: No blurry vision, change [...] deferred d/t telephone visit during COVID-19 Pandemic [facility] Musculoskeletal: No muscle weakness Details: Details:: Exam was limited due to phone visit with no video. Quality Reporting Medication Reconciliation (CMS 68) albuterol sulfate 90 mcg/actuation 1 - [...] day smoker Assessment Plan 1. 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 Emergent reprep and relook showed acute stent thrombosis. Emergent PTCA with 2.0 x 12 balloon, followed by Lindside catheter, followed by IVUS performed. Pt given [...] Code Level 2 Telephone Diagnoses Atherosclerosis of [place] coronary artery of [place] heart without angina pectoris I25.10 ?[place] vs. transplanted heart: [place] heart Hyperlipidemia E78.5 Essential hypertension I10 ?Hypertension type: essential hypertension 12/10/19 1037 <Electronically signed by Tristen Mchugh MD> Date Tristen Mchugh MD Cosigner Signature: Date (if applicable) CC: Dr. Kelly Ma, DO Kelly Ma Start: 11-30-2019 OPERATIVE REPORT 3m Scanning Start: 11-29-2019 Basic metabolic panel calcium total Afshan Rolon Work Phone: Start: 11-29-2019 Blood count hemoglobin Afshan Rolon Work Phone: Start: 11-29-2019 Ecg routine ecg w/least 12 lds w/i&r Afshan Rolon Work Phone: Start: 11-12-2019 End: 11-12-2019 Emergency Department Summary Comments: See Note; NOTES: [facility] Medical Records Department [address] [place] [address] Emergency Department Summary 11/12/19 MR#: [id number] Acct: [id number] Name: GIOVANNI LOMAX Rep #: [id number] : 1955 64 From: Josafat Hutton MD PCP: Kelly Ma DO Status: REG ER History of Present [...] her left shoulder. [place] any other injury. Bnvop-gdyv-lxfecpyy. No numbness or tingling or weakness distally. No pain at the elbow or distal, just the shoulder. Has a history of a collarbone fracture, states this feels different. 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 Emergent reprep and relook showed acute stent thrombosis. Emergent PTCA with 2.0 x 12 balloon, followed by Lindside catheter, followed by IVUS performed. 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 Emergent reprep and relook showed acute stent thrombosis. Emergent PTCA with 2.0 x 12 balloon, followed by Lindside catheter, followed by IVUS performed. Pt given [...] 11/12/19 14:05) Rash Primary Care Physician: Kelly Ma DO [Primary Care Provider] - Makiol Bishop MD [STAFF PHYSICIAN] - 3-5 Days [...] tuberosity. Soft tissue swelling. Electronically Signed: Marty Jacey, at 15:33 EDT , Service support , [...] Reason: Pain Transmission Status: Received by [id number] Referrals: Kelly Ma DO [Primary Care Provider] - Maikol Bishop MD [STAFF PHYSICIAN] - 3-5 Days (Call for appointment; may see any of the orthopedic physicians.) What to do if you have Problems For any increased pain, shortness of breath, bleeding, nausea or vomiting, chest pain, or any unexpected problems, contact your Primary Care Provider. Call [facility] ([phone]) or report to the closest Emergency Room. Call 911 if necessary. 11/12/19 6547 <Electronically signed by Josafat Hutton MD> Date Josafat Hutton MD Cosigner Signature (If Indicated): Date CC: Kelly Aguilar Start: 07-02-2019 End: 07-02-2019 Colonoscopy Report Comments: See Note; NOTES: [facility] Medical Records Department [address] [place] [address] Colonoscopy Report MR#: [id number] Acct: [id number] Name: GIOVANNI LOMAX Rep #: [id number] : 1955 64 From: Rome Love MD PCP: Kelly Ma DO Status: [facility] Patient Name: Giovanni Lomax Procedure Date: 07/02/2019 2:27 PM Date of : 1955 Age: 64 Procedure: Colonoscopy Indications: Clinically significant diarrhea of unexplained origin Providers: Rome Love MD Referring MD: Kelly Ma Medicines: Monitored Anesthesia Care Patient Profile: This [...] physician, the nurse, the anesthesiologist and the black top roller in the procedure room. Mental Status Examination: [...] on pathology results. - Return to physician stylist assistant in 1 week. Procedure Code(s): --- Professional --- 21418, Colonoscopy, flexible; with removal of tumor(s), polyp(s), or other lesion(s) by snare technique 67677, 59, Colonoscopy, flexible; with biopsy, single or multiple CPT copyright 2017 [employer]. All rights reserved. The codes documented in this report are preliminary and upon tube tester review may be revised to meet current compliance requirements. Rome Love MD 07/02/2019 2:54:09 PM This report has been signed electronically. Number of Addenda: 0 Note Initiated On: 07/02/2019 2:27 PM 07/02/19 1454 Date Rome Love MD Cosign Signature: Date (if indicated) CC: Kelly Ma DO; Rome Love MD Date Dictated: 07/02/19 1427 Date Transcribed: 5Th Grade Teacher: NICOLLE Signed eKlly Ma Start: 07-02-2019 End: 07-02-2019 EGD Report Comments: See Note; NOTES: [facility] Medical Records Department [address] [place] [address] EGD Report MR#: [id number] Acct: [id number] Name: GIOVANNI LOMAX Rep #: [id number] : 1955 64 From: Rome Love MD PCP: Kelly Ma DO Status: REG [facility] Patient Name: Giovanni Lomax Procedure Date: 07/02/2019 1:58 PM Date of : 1955 Age: 64 Procedure: Upper GI endoscopy Indications: Diarrhea Providers: Rome Love MD Referring MD: Kelly Ma Medicines: Monitored Anesthesia Care Complications: No immediate [...] physician, the nurse, the anesthesiologist and the black top roller in the procedure room. Mental Status Examination: [...] Await pathology results. - Return to physician stylist assistant in 1 week. Procedure Code(s): --- Professional --- 05105, Esophagogastroduodenoscopy, flexible, transoral; with biopsy, single or multiple CPT copyright 2017 [employer]. All rights reserved. The codes documented in this report are preliminary and upon tube tester review may be revised to meet current compliance requirements. Rome Love MD 07/02/2019 2:52:03 PM This report has been signed electronically. Number of Addenda: 0 Note Initiated On: 07/02/2019 1:58 PM 07/02/19 1452 Date Rome Love MD Cosigner Signature: Date (if indicated) CC: Kelly Ma DO; Rome Love MD Date Dictated: 07/02/19 1358 Date Transcribed: 5Th Grade Teacher: NICOLLE Signed Kelly Ma Start: 07-02-2019 End: 07-02-2019 History and Physical Exam Comments: See Note; NOTES: [facility] Medical Records Department [address] [place] [address] History and Physical 07/02/19 0724 MR#: [id number] Acct: [id number] Name: GIOVANNI LOMAX Rep #: [id number] : 1955 64 From: Rome Love MD PCP: Kelly Ma DO Status: REG [facility] Y Location: [place] [address] ADDENDUM by Rome Love MD on 07/02/19 at 1223 Code Visit I have re-examined the patient. There are no clinical changes since date of exam 07/02/19 1223 <Electronically signed by Rome Love MD> Date Rome Love MD cc: Kelly Ma DO; Rome Love MD * Signed History and Physical Date of Admission: 07/02/19 HISTORY AND PHYSICAL Giovanni Lomax 1955 REFERRING PHYSICIAN: Kelly Ma ,* CHIEF COMPLAINT: Diarrhea HPI: The patient [...] members with gastrointestinal infections or other challenges. Jeff case has not undergone prior endoscopy. The patient is being seen by me today at the request of Dr. Kelly Ma DO for my opinion and advice regarding [...] Take 0.5 mg by mouth once daily.) lisinopril-hydrochlorothiaz ashvin 20-25 mg ORAL per tablet Take 1 tablet by mouth once daily. No current facility-administered medications for this visit. ALLERGIES: Patient has no known allergies. 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 N/A LastColonoscopy: ANNA Bishop PHYSICAL EXAMINATION: General: The patient is [...] A letter was sent to Dr. Kelly Ma DO indicating the above finding for this patient. Return to Clinic: The patient is instructed to follow-up with me after the testing has been completed. __ Rome Love MD 07/02/19 0725 <Electronically signed by Rome Love MD> Date Rome Love MD [facility] Signature: Date (if applicable) CC: Kelly Ma DO; Rome Love MD Signed Kelly Ma Start: 07-02-2019 End: 07-02-2019 History and Physical Exam Comments: See Note; NOTES: [facility] Medical Records Department [address] [place] [address] History and Physical 07/02/19 0724 MR#: [id number] Acct: [id number] Name: GIOVANNI LOMAX Rep #: [id number] : 1955 64 From: Rome Love MD PCP: Kelly Ma DO Status: PRE [facility] Y Location: EN History and Physical Date of Admission: 07/02/19 HISTORY AND PHYSICAL Giovanni Lomax 1955 REFERRING PHYSICIAN: Kelly Ma ,* CHIEF COMPLAINT: Diarrhea HPI: The patient [...] members with gastrointestinal infections or other challenges. Jeff case has not undergone prior endoscopy. The patient is being seen by me today at the request of Dr. Kelly Ma DO for my opinion and advice regarding three-month history of loose diarrheal stools. PAST MEDICAL HISTORY PAST MEDICAL HISTORY Diagnosis Date Essent ial hypertension, benign 1973 diagnosed age 19 Other and unspecified hyperlipidemia Other chest pain Jun 2005 non-cardiac CP, stress test normal Other forms of migraine Restless legs syndrome (RLS) 2005 Senile osteoporosis 2006 Tobacco usedisorder PAST SURGICAL HISTORY PAST SURGICAL HISTORY Procedure Laterality Date EGD W/O [facility] SPECIMEN W/BX 12/28/2007 gastritis REMOVAL OF OVARY(S) [...] Take 0.5 mg by mouth once daily.) lisinopril-hydrochlorothiaz ashvin 20-25 mg ORAL per tablet Take 1 tablet by mouth once daily. No current facility-administered medications for this visit. ALLERGIES: Patient has no known allergies. 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 N/A LastColonoscopy: ANNA Bishop PHYSICAL EXAMINATION: General: The patient is [...] A letter was sent to Dr. Kelly Ma DO indicating the above finding for this patient. Return to Clinic: The patient is instructed to follow-up with me after the testing has been completed. __ Rome Love MD 07/02/19 0725 <Electronically signed by Rome Love MD> Date Rome Love MD Cosigner Signature: Date (if applicable) CC: Kelly Ma DO; Rome Love MD Signed Kelly Ma Start: 06-29-2019 End: 06-29-2019 Echocardiogram Complete Comments: See Note; NOTES: [facility] [address] [place] [address] Echo Complete 06/28/19 1309 MR#: [id number] Acct: [id number] Name: GIOVANNI LOMAX Rep #: [id number] : 1955 64 From: Tristen Mchugh MD Attending Dr: Tristen Mchugh MD Status: REG CLI Ordering Dr: Tristen Mchugh MD Date: 06/28/19 Location: [facility] Sex: F C Admitted: Reason For [...] 65%. Ordering Physician: Jeison Referring Physician: Kelly Ma Performed By: Doretha Day, ELISEO, RVT 06/29/19929 Date Tristen Mchugh MD CC: Tristen Mchugh MD; Kelly Ma DO Date Dictated: 06/28/19 1309 Date Transcribed: 06/29/19929 5Th Grade Teacher: Signed Kelly Ma Start: 05-24-2019 End: 05-24-2019 Cardiology Visit Report Comments: See Note; NOTES: [facility] [address] [place] [address] OFFICE VISIT Date of Service: 05/24/19 MR#: [id number] Acct: [id number] Name: GIOVANNI LOMAX Rep #: [id number] : 1955 Provider: Tristen Mchugh MD Age/Sex: 64/F Location: [facility] Status: Signed HPI HPI History of Present Illness Details: Details: This is a 64-year-old female that presents here today for a cardiovascular follow up. Patient presented to [facility] with chest discomfort on January 10, 2019. 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 Emergent reprep and relook showed acute stent thrombosis. Emergent PTCA with 2.0 x 12 balloon, followed by Lindside catheter, followed by IVUS performed. Pt given [...] hypokinesis. She does not have any chest discomfort/heaviness/tightn ess. Her exercise tolerance is stable for her [...] DAILY #30 tab 05/24/19 [Rx Confirmed 05/24/19] [facility] Medical History Hyperlipidemia (Chronic) Atherosclerotic heart disease of [place] coronary artery without angina pectoris (Chronic) Hypertension [...] affect Assessment AND Plan 1. 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 Emergent reprep and relook showed acute stent thrombosis. Emergent PTCA with 2.0 x 12 balloon, followed by Lindside catheter, followed by IVUS performed. Pt given [...] Code Off vis,est,level 3 Diagnoses Atherosclerosis of [place] coronary artery of [place] heart without angina pectoris I25.10 [place] vs. transplanted heart: [place] heart Hyperlipidemia E78.5 Essential hypertension I10 Hypertension type: essential hypertension Coding Level of Care Code Off vis,est,level 3 Diagnoses Atherosclerosis of [place] coronary artery of [place] heart without angina pectoris I25.10 [place] vs. transplanted heart: [place] heart Hyperlipidemia E78.5 Essential hypertension I10 Hypertension type: essential hypertension Supplemental Info Supplemental Information Labs LDL Cholesterol 141 mg/dL (0-130) H 01/10/19 HDL Cholesterol 48 mg/dL (40-) 01/10/19 Triglycerides 58 mg/dL (-199) 01/10/19 VLDL Cholesterol 12 mg/dL (5-40) 01/10/19 Diagnostics Electrocardiogram 01/12/19 Echocardiogram 01/10/19 Chest X-Ray 01/10/19 05/24/19 3770 <Electronically signed by Tristen Mchugh MD> Date Tristen Noble Signature: Date (if applicable) CC: Kelly Wade Kelly Ma Start: 02-09-2019 End: 02-12-2019 Cardiology Visit Report Comments: See Note; NOTES: [facility] [address] [place] [address] OFFICE VISIT Date of Service: 02/08/19 MR#: [id number] Acct: [id number] Name: GIOVANNI LOMAX Rep #: [id number] : 1955 Provider: Edilia Avilez Age/Sex: 64/F Location: [facility] Status: Signed with Addenda ADDENDUM by Edilia Avilez on 02/09/19 at 1122 Addendum entered and electronically signed by KAILEY Forte 02/09/19 11:22: Assessment AND Plan 1. 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 Emergent reprep and relook showed acute stent thrombosis. Emergent PTCA with 2.0 x 12 balloon, followed by Lindside catheter, followed by IVUS performed. Pt given Integrillin bolus and gtt, followed by post stent dilatation with a 3.0 x 10 Angiosculpt, followed by a 3.5 x 12 NC balloon. Repeat IVUS confirmed appropriate stent deployment and no resolution of scar tissue protruding through stent struts. Plan - KAILEY Forte Patient has not had any further chest [...] Edilia BONNER> Date Edilia Avilez cc: Kelly Ma DO * Signed HPI HPI History of Present Illness Details: This is a 64-year-old female that presents here today for a hospital follow-up. Patient presented to [facility] with chest discomfort on January 10, 2019. She noted that discomfort had been progressing over the last several days. She was noted to have an acute inferior lateral wall myocardial infarction. She underwent angioplasty of her proximal RCA with an overlapping into the previous RCA stent that was done approximately 7 years ago. After procedure was completed but prior to patient leaving the [employer] she developed recurrent chest pain and ST elevation. She was noted to have acute in-stent thrombosis she underwent emergent angioplasty, thrombectomy and IVUS evaluation with additional post stent dilatation. She does have a history of hypertension, hyperlipidemia and tobacco abuse. She is going to start cardiac rehab. She does not have any chest discomfort/heaviness/tightn ess. Her exercise tolerance is stable for her [...] Location Lt brachial Intake Visit Reasons: STEMI Motel Clerk Required: No Accompanied by: None Is patient [...] BID #180 tab 02/08/19 [Rx Confirmed 02/08/19] [facility] Medical History (Updated 01/10/19 @ 11:55 by Darcy Knowles) Atherosclerotic heart disease of [place] coronary artery without angina pectoris (Chronic) Hypertension [...] AND Plan 1. 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 Emergent reprep and relook showed acute stent thrombosis. Emergent PTCA with 2.0 x 12 balloon, followed by Lindside catheter, followed by IVUS performed. 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 Emergent reprep and relook showed acute stent thrombosis. Emergent PTCA with 2.0 x 12 balloon, followed by Lindside catheter, followed by IVUS performed. Pt given [...] 01/10/19 02/09/19 1119 <Electronically signed by Edilia OBNNER> Date Edilia BONNER Cosigner Signature: Date (if applicable) CC: Kelly Aguilar Start: 12-15-2011 Lipid 1996 panel - Serum or Plasma Roxana BONNER Work Phone: Start: 04-15-2009 Mammography Abran Granados MD Work Phone: Cardiac sx Minda Messenger Cardiac sx Yoli Kaitlin Long Cardiac sx Jenny Cross D&C Minda Messenger D&C Yoli L Long D&C Jenny Cross H/O: hysterectomy History of hysterectomy Dr. Leonidas Traore Work Phone: H/O: surgery History of oophorectomy Dr. Leonidas Traore Work Phone: History of tonsillectomy History of tonsi llectomy Dr. Leonidas Traore Work Phone: Hysterectomy Minda Messenger Hysterectomy Yoli L Long Hysterectomy Jenny Cross Ligation of fallopian tube K wu Messenger Ligation of fallopian tube M alejandra L Long Ligation of fallopian tube A shley Cross Tonsillectomy Minda Riveraenge r Tonsillectomy Yoli L Long Tonsillectomy Jenny Cross Plan of Treatment Date Care Activity Detail Author Start: 12-31-2024 Patient referral [facility] Work Phone: Start: 12-29-2024 Patient discharge [facility] Start: 12-29-2024 [facility] Start: 12-29-2024 [facility] Start: 12-28-2024 Following clinical pathway protocol [facility] Start: 12-28-2024 Assessment of risk o f venous thromboembolism [facility] Start: 12-28-2024 Incentive spirometry [facility] Start: 12-28-2024 Inhalation therapy procedure [facility] Start: 12-28-2024 Insertion of cathete r into peripheral vein [facility] Start: 12-28-2024 Measuring intake and output [facility] Start: 12-28-2024 Oxygen therapy [facility] Start: 12-28-2024 Providing care accor ding to standard [facility] Start: 12-28-2024 End: 12-28-2024 Provision of activity privileges [facility] Start: 12-28-2024 Referral to certified mortician [facility] Start: 12-28-2024 Tobacco use cessatio n education [facility] Start: 12-28-2024 Cardiac monitoring [facility] Start: 12-28-2024 Cardiac rehabilitati on - phase 1 [facility] Start: 12-28-2024 Cardiac rehabilitati on - phase 2 [facility] Start: 12-28-2024 Notification of physician [facility] Start: 12-28-2024 Patient discharge [facility] Start: 12-28-2024 Patient education [facility] Start: 12-28-2024 Pulse taking [facility] Start: 12-28-2024 Taking patient vital signs [facility] Start: 12-28-2024 Wound care [facility] Start: 12-28-2024 End: 12-28-2024 [facility] Start: 12-28-2024 Verification routine [facility] Start: 12-28-2024 Admission procedure [facility] Start: 12-28-2024 Hospital admission, emergency, from emergency room, medical nature [facility] Start: 12-28-2024 [facility] Start: 08-08-2024 Patient referral [facility] Work Phone: Start: 03-11-2024 Covid-19 Vaccine ( season) Covid-19 Vaccine ( season) [facility] Start: 03-11-2024 Influenza vaccination Influenza Vacc ine (#1) [facility] Start: 01-18-2024 End: 01-18-2024 Patient encounter procedure 01/18/2024 11:10 AM EDT Office Visit [facility] [address] [place] [address] Yohan Adair MD [address] [place] [address] [facility] Start: 11-11-2023 Patient discharge [facility] Start: 11-11-2023 Referral to vascular surgeon [facility] Start: 11-11-2023 Thyroid stimulating hormone measurement [facility] Start: 11-10-2023 Ambulation without limitation [facility] Start: 11-10-2023 Aspiration precautions [facility] Start: 11-10-2023 Assessment of risk o f venous thromboembolism [facility] Start: 11-10-2023 Cardiac monitoring [facility] Start: 11-10-2023 Catheterization of vein [facility] Start: 11-10-2023 Consultation [facility] Start: 11-10-2023 Elevation of head of bed [facility] Start: 11-10-2023 Exercises [facility] Start: 11-10-2023 Insertion of cathete r into peripheral vein [facility] Start: 11-10-2023 Measuring intake and output [facility] Start: 11-10-2023 Notification of physician [facility] Start: 11-10-2023 Oxygen therapy [facility] Start: 11-10-2023 Patient referral to dietitian [facility] Start: 11-10-2023 Providing care accor ding to standard [facility] Start: 11-10-2023 Referral to occupati onal therapist [facility] Start: 11-10-2023 Referral to service [facility] Start: 11-10-2023 Speech therapy assessment [facility] Start: 11-10-2023 Telemedicine consultation with patient [facility] Start: 11-10-2023 Tobacco use cessatio n education [facility] Start: 11-10-2023 End: 11-10-2023 [facility] Start: 11-10-2023 Following clinical pathway protocol [facility] Start: 11-10-2023 Vital signs measurements [facility] Start: 11-10-2023 Verification routine [facility] Start: 11-10-2023 Admission procedure [facility] Start: 11-10-2023 Hospital admission, emergency, from emergency room, medical nature [facility] Start: 11-10-2023 Oxygen therapy [facility] Start: 11-10-2023 [facility] Start: 10-31-2023 Patient referral [facility] Work Phone: Start: 07-11-2023 Advance Directive Discussion Advance Directive Discussion [facility] Start: 11-28-2022 Diabetes Screening Diabetes Screenin g [facility] Start: 04-29-2022 Patient referral [facility] Work Phone: Start: 2022 Screening for osteoporosis Bone Density Screening [facility] Start: 03-27-2021 COVID-19 VACCINE (3 - Booster for Pfizer series) COVID-19 VACCINE (3 - Booster for Pfizer series) [facility] Start: 11-28-2020 Creatinine measurement Creatinine mo nitoring [place] Start: 11-28-2020 Potassium monitoring Potassium monit oring [place] Start: 06-20-2020 Procedure Education Eprescribe d prescriptions (G8295) [facility] Work Phone: Start: 06-20-2020 Provider Instruction s for Treatment [facility] Work Phone: Start: 06-20-2020 Lipoprotein blood qu an numbers & subclasses NMR Profile (80598) [facility] Work Phone: Comment on above: send results to [facility] Start: 06-20-2020 Urnls dip stick/tabl et reagent auto microscopy URINALYSIS, W/ MICRO (01469) [facility] Work Phone: Start: 06-20-2020 Urine albumin quantitative MICROALBUMIN: CREATININE RATIO (40756) AND (09414) [facility]; [facility] Work Phone: Start: 06-20-2020 Assay of thyroid stimulating hormone tsh TSH (16810) [facility] Work Phone: Start: 06-20-2020 TSH Qn TSH (30723) [facility] Work Phone: Start: 06-20-2020 Comprehensive metabo lic panel METABOLIC PANEL, COMPREHENSIVE (89998) [facility]; [facility] Work Phone: Start: 06-20-2020 Blood count complete auto&auto difrntl wbc CBC W/AUTO DIFF WBC (92221) [facility]; [facility] Work Phone: Start: 03-11-2020 Influenza vaccination Flu vacc ine (Season Ended) [place] Start: 11-30-2019 Hospital Encounter 11/30/2019 Hospital Encounter General Surgery Guido Bishop MD [address] [facility] [address] [place] [address] [facility] Start: 05-08-2019 Assay of magnesium MAGNESIUM (46344) [facility] Work Phone: Start: 05-08-2019 Magnesium [Mass/Vol] MAGNESIUM (8373 5) [facility] Work Phone: Start: 05-08-2019 Basic metabolic pane l calcium total Metabolic Panel, Basic (32788) [facility] Work Phone: Start: 05-03-2019 Procedure Education Eprescribe d prescriptions (G8510) [facility] Work Phone: Start: 05-03-2019 Provider Instruction s for Treatment [facility] Work Phone: Start: 05-03-2019 CRP [Mass/Vol] C-REACTIVE PRO TEIN (47295) [facility] Work Phone: Start: 05-03-2019 Sedimentation rate r bc non-automated Sed Rate Erythrocyte (92058) [facility] Work Phone: Start: 05-03-2019 Comprehensive metabo lic panel Metabolic Panel, Comprehensive (59403) [facility] Work Phone: Start: 05-03-2019 Blood count manual c ell count each CBC with auto diff (03428) [facility] Work Phone: Start: 05-03-2019 Blood occult peroxid ase actv qual feces 1 deter OCCULT BLOOD FECES SCREEN (15762) [facility] Work Phone: Start: 05-03-2019 Cul bact stool aerob ic isol salmonella&shigell YASMINE CULTURE-STOOL (96479) [facility] Work Phone: Start: 05-03-2019 Culture bacterial an y source anaerobic iso&id C-DIFFICILE, STOOL (45675) [facility] Work Phone: Start: 05-03-2019 Leukocyte assmt feca l qual/semiquantitative LEUKOCYTE COUNT, FECAL (18449) [facility] Work Phone: Start: 05-03-2019 Ova&parasites direct smears concentration & id OVA & PARASITE DIR SMEAR (19276) [facility] Work Phone: Start: 02-19-2019 Provider Instruction s for Treatment [facility] Work Phone: Start: 2017 RSV Immunization age d 60 or older (1 - 1-dose 60+ series) RSV Immunization aged 60 or older (1 - 1-dose 60+ series) [facility] Start: 2017 RSV Vaccine (1 - Ris k 60-74 years 1-dose series) RSV Vaccine (1 - Risk 60-74 years 1-dose series) [facility] Start: 12-14-2016 Lipid panel Lipid Screening [facility] Start: 12-14-2016 LIPID SCREEN LIPID SCREEN [facility] Start: 12-14-2014 DIABETES SCREEN DIABETES SCREEN [facility] Start: 12-14-2012 Hepatitis B surface antibody level LDL CHOLESTEROL [facility] Start: 04-15-2010 Mammography MAMMOGRAM [facility] Start: 04-15-2010 Screening for malign ant neoplasm of breast Mammogram Screening [facility] Start: 03-08-2007 DTaP/Tdap/Td Vaccine s (1 - Tdap) DTaP/Tdap/Td Vaccines (1 - Tdap) [facility] Start: 03-08-2007 Urine microalbumin profile [facility] Start: 2007 Screening for malign ant neoplasm of breast Breast cancer screen [place], [place] Start: 2007 Screening for malign ant neoplasm of colon Colon cancer screen colonoscopy [place] Start: 2007 Shingles Vaccine (1 of 2) Shingles Vaccine (1 of 2) [place] Start: 2007 SHINGRIX VACCINE (1 of 2) SHINGRIX VACCINE (1 of 2) [facility] Start: 2007 Zoster Vaccines (1 of 2) Zoste r Vaccines (1 of 2) [facility] Start: 2002 COLOGUARD (FIT-DNA) COLOGUARD (FIT-D NA) [facility] Start: 2002 Colonoscopy COLONOSCOPY [facility] Start: 2002 COLORECTAL CANCER SCREENING COLORECTAL CANCER SCREENING [facility] Start: [address] COLONOGRAPHY [facility] Start: 2002 FECAL OCCULT BLOOD FECAL OCCULT BLOO D [facility] Start: 2002 Screening for malign ant neoplasm of colon [facility] Start: 2002 SIGMOIDOSCOPY SIGMOIDOSCOPY [facility] Start: 1997 Diabetes screen Diabetes screen [place], [place] Start: 1997 Screening for malign ant neoplasm of breast Mammogram [facility] Start: 1978 Screening for malign ant neoplasm of cervix Cervical cancer screen [place] Start: 01-14-1976 DTaP/Tdap/Td vaccine (1 - Tdap) DTaP/Tdap/Td vaccine (1 - Tdap) [place] Start: 1975 ANNUAL PCP TEAM LITIGATION COUNSEL BING DISEASE VISIT ANNUAL PCP TEAM CHRONIC DISEASE VISIT [facility] Start: 1975 Anxiety Screening Anxiety Screening [facility] Start: 1975 BP CONTROLLED (<130/80) BP CON TROLLED (<130/80) [facility] Start: 1975 Diabetes mellitus screening Diabetes Screening [facility] Start: 1975 HEPATITIS C SCREENING HEPATITIS C SC [facility] Start: 1975 Hepatitis C screening Hepatitis C Sc [facility] Start: 1975 HIV SCREENING HIV SCREENING [facility] Start: 1975 SPIROMETRY SPIROMETRY [facility] Start: 01-14-1972 HIV screening HIV screen [place], [place] Start: 1969 Depression Screening Depression Scre ening [facility] Start: 1967 Lipid panel Lipid screen [place], [place] Start: 1963 Pneumococcal 0-64 ye ars Vaccine (1 of 1 - PPSV23) Pneumococcal 0-64 years Vaccine (1 of 1 - PPSV23) [place] Start: 1963 Pneumococcal Vaccine : 65+ (1 of 2 - PCV) Pneumococcal Vaccine: 65+ (1 of 2 - PCV) [facility] Start: 1963 Pneumococcal Vaccine : 65+ Years (1 of 2 - PCV) Pneumococcal Vaccine: 65+ Years (1 of 2 - PCV) [facility] Start: 1957 Creatinine measurement Creatinine mo nitoring [facility] Start: 1957 Hepatitis C screening Hepatitis C sc reen [facility] Start: 1957 Lipid panel Lipid Panel [facility] Start: 1957 Medicare Annual Well ness (AWV) Medicare Annual Wellness (AWV) [facility] Start: 1957 Potassium monitoring Potassium monit oring [facility] Start: 1957 Screening for malign ant neoplasm of colon [facility] Start: 1957 Screening for osteoporosis Bone Density Scan [facility] End: 11-30-2019 Blood glucose - POCT Blood glucose - POCT Point of Care Testing STAT One Time for 1 Occurrences starting 11/30/2019 until 11/30/2019 [facility] Comment on above: One Time for 1 Occur rences starting 11/30/2019 until 11/30/2019 End: 11-30-2019 Creatinine [Mass/Vol] Creatinine, serum Lab STAT One Time for 1 Occurrences starting 11/30/2019 until 11/30/2019 [facility] Comment on above: One Time for 1 Occur rences starting 11/30/2019 until 11/30/2019 DXA Bone [Mass/Area] Bone density [facility] EKG 12 Lead EKG 12 Lead ECG Routine 11/29/2019 9:58 AM EDT [facility] Work [facility]: End: 11-30-2019 FL Greater Than 1 Hour FL Greater Than 1 Hour Imaging Routine Once for 1 Occurrences starting 11/30/2019 until 11/30/2019 [facility] Comment on above: Once for 1 Occurrenc es starting 11/30/2019 until 11/30/2019 FL Greater Than 1 Hour FL Greate r Than 1 Hour Imaging Routine 11/30/2019 11:01 AM EDT [facility] Hemoglobin A1c/Hemoglobin.total in Blood [facility] Hepatic function panel [facility] Incentive spirometry Incentive s pirometry Respiratory Care Routine Q1H PRN until discontinued starting 11/30/2019 [facility] Comment on above: Q1H PRN until discon tinued starting 11/30/2019 Initiate Oxygen Ther apy Protocol Initiate Oxygen Therapy Protocol Respiratory Care Routine Daily until discontinued starting 11/30/2019 [place] Comment on above: Daily until disconti nued starting 11/30/2019 Lipid 1996 panel - S milan or Plasma [facility] MG Breast - bilatera l Screening [facility] Patient Education Cardiac Cath Transradial [facility] Work Phone: Patient referral [facility] Work Phone: Phase I & II - meter ed glucose Phase I & II - metered glucose Point of Care Testing Routine As Needed until discontinued starting 11/30/2019 [facility] [place] Comment on above: As Needed until disc ontinued starting 11/30/2019 End: 11-30-2019 Potassium w/ Reflex to Magnesium Potassium w/ Reflex to Magnesium Lab Routine One Time for 1 Occurrences starting 11/30/2019 until 11/30/2019 [facility] [place] Comment on above: One Time for 1 Occur rences starting 11/30/2019 until 11/30/2019 End: 11-30-2019 , urine , urine Lab STAT One Time for 1 Occurrences starting 11/30/2019 until 11/30/2019 [facility] [place] Comment on above: One Time for 1 Occur rences starting 11/30/2019 until 11/30/2019 End: 11-30-2019 Protime-INR Protime-INR Lab STAT One Time for 1 Occurrences starting 11/30/2019 until 11/30/2019 [facility] [place] Comment on above: One Time for 1 Occur rences starting 11/30/2019 until 11/30/2019 End: 11-30-2019 Pulse Oximetry Spot Check Pulse Oximetry Spot Check Respiratory Care Routine One Time for 1 Occurrences starting 11/30/2019 until 11/30/2019 [facility] [place] Comment on above: One Time for 1 Occur rences starting 11/30/2019 until 11/30/2019 US Carotid arteries [facility] Work Phone: [facility] Work Phone: [facility] Immunizations Immunization Date Immunization Notes Care Provider Fa meron 04-11-2023 influenza, injectabl e, quadrivalent, preservative free Dr. Leonidas Traore Work Phone: [facility] 04-11-2023 influenza virus vaccine, unspecified formulation Roxana BONNER Work Phone: [facility] 03-07-2007 tetanus and diphther ia toxoids, adsorbed, preservative free, for adult use (2 Lf of tetanus toxoid and 2 Lf of diphtheria toxoid) Abran Granadso MD Work Phone: [facility] Work Phone: Payers Date Payer Category Payer Self-pay [id number] 2023 Private Health Insurance [id number] 2023 Private Health Insurance [id number] 2022 Medicare [id number] 2022 Medicare [id number] 2019 Unknown ANTHEM BLUE ACCE SS PPO [id number] 2019-Present [phone] [address] [place] [address] PPO [id number] 2019 Unknown BCBS [place] P PO xxxxxxxxxxxx 2019-Present [address] [place] [address] xxxxxxxxxxxx [id number] 2014 Unknown AULTCARE [id number] 2013 Unknown MED MUTUAL TPA [id number] Unknown Laurie BC/BS Unknown ANTHEM [id number] Unknown [id number] Unknown [id number] Unknown [id number] Unknown [id number] Unknown [id number] Unknown [id number] Unknown [id number] Unknown [id number] Unknown [id number] Unknown [id number] Unknown [id number] Unknown [id number] Unknown [id number] Unknown [id number] Unknown [id number] Social History Date Type Detail Facility Alcohol Use: Alcohol Use: [facility] Work Phone: Start: 11-29-2019 End: 06-18-2020 Caffeine Use Caffeine Use [facility] Work Phone: Comment on above: qd 1/2 ppd Drug Use: Drug Use: [facility] Work Phone: Exercise History: Exercise History: [facility] Work Phone: Living Situation: Living Situation: [facility] Work Phone: Start: 11-29-2019 End: 01-03-2025 Tobacco smoking status NHIS Current every day smoker [facility] Start: 11-08-1974 End: 11-08-2009 History of tobacco use Cigarette Smoker [place] Start: 11-29-2019 End: 12-20-2023 Alcohol intake Current drinker of alcohol (finding) [place] Start: 02-24-2016 Alcohol Comment wine occasional [place], [place] Start: 1955 Sex Assigned At Not on file [place] Exposure to SARS-CoV-2 (event) Unable to assess [place] Alcohol Use: Alcohol Use: [facility] Work Phone: Drug Use: Drug Use: [facility] Work Phone: [facility]: [facility] Work Phone: Living Situation: Living Situation: [facility]; [facility] Work Phone: Start: 10-08-2021 End: 06-05-2024 Tobacco use and exposure Smokeless tobacco non-user [facility] Start: 10-08-2021 End: 06-05-2024 Alcohol intake Current non-drinker of alcohol (finding) [facility] Start: 01-10-2007 End: 06-05-2024 Tobacco Comment tried wellbutrin, didn't tolerate patch, would consider Chantix but insurance doesn't cover [facility] Start: 09-28-2021 End: 03-31-2022 Exposure to SARS-CoV-2 (event) Not sure [facility] Start: 05-04-2022 End: 11-11-2023 Tobacco smoking status NHIS Unknown if ever smoked [facility] Start: 01-10-2019 None [facility] Start: 09-28-2017 Spouse/ Signif icant Other [facility] Start: 11-12-2019 Cigarettes [facility] Start: 1955 Sex Assigned At Female [facility] Start: 06-18-2020 End: 12-20-2023 Tobacco use panel [facility] National Score (1-100), lower number is lower risk Not on file [facility] Start: 09-13-2024 Sex Female (finding) [facility] Medical Equipment Procedure Code Equipment Code Equipment Origin al Text Equipment Identifier Dates Drug-eluting coronary artery stent, [id number] lymer-coated [id number] FDA Start: 12-28-2024 Goals Date Patient Goal Desired Activity /State Functional Status Date Assessment Result Facility 12-29-2024 Functional status Ambulates;Up ad chasidy [facility] Work Phone: 11-11-2023 Functional status Ambulates;Up ad chasidy [facility] Work Phone: Mental Status Date Assessment Result Facility 12-29-2024 Cognitive function Voice/Name [facility] Work Phone: 12-28-2024 Cognitive function Level Of Cons ciousness Awake;Alert;Appropriate;Follow s Commands [facility] Work Phone: 11-11-2023 Cognitive function Voice/Name [facility] Work Phone: 11-10-2023 Cognitive function Voice/Name [facility] Work Phone: Clinical Notes 10-08-2021 to 12-29-2024 Note Date & Type Note Facility 12-29-2024 Discharge summary [facility] 12-29-2024 Discharge summary [facility] 12-29-2024 Note [facility] Medical Records Department [address] [place] [address] Discharge Summary 12/29/24 1414 MR#: [id number] Acct: [id number] Name: GIOVANNI LOMAX Rep #: [id number] : 1955 69 From: Temi Banda MD PCP: Dr. Leonidas Traore MD Status:ADM IN Location: [place] [address] Providers Date of Admission: 12/28/24 Date of Discharge: 12/29/24 Primary Care Physician: Dr. Leonidas Traore MD Consultations 12/28/24 12:27 Consult: Cardiology Routine Consulting Provider: Alonzo Blackburn Reason for Consult: Chest Pain EMERGENT Consult: No MD Notified: Yes Date Notified: 12/28/24 Time Notified: 10:28 Method of Notification: Verbal Reason For Visit: CHEST PAIN Diagnosis Discharge Diagnosis (1) Non-ST elevated myocardial infarction (non-STEMI): Status: Acute Code(s): I21.4 - Non-ST elevation (NSTEMI) myocardial infarction (2) COPD (chronic obstructive pulmonary disease): Status: Chronic Code(s): J44.9 - Chronic obstructive pulmonary disease, unspecified Qualifiers: COPD type: unspecified COPD Qualified Code(s): J44.9 - Chronic obstructive pulmonary disease, unspecified (3) Hyperlipidemia: Status: Acute Code(s): E78.5 - Hyperlipidemia, unspecified Qualifiers: Hyperlipidemia type: pure hypercholesterolemia Qualified Code(s): E78.00 - Pure hypercholesterolemia, unspecified (4) Hypertension: Status: Chronic Code(s): I10 - Essential (primary) hypertension Qualifiers: Hypertension type: essential hypertension Qualified Code(s): I10 - Essential (primary) hypertension Plan #Type I NSTEMI #CAD s/p PCI #HTN Urgency #COPD #Tobacco use Medications at Discharge Home Medications clopidogrel 75 [...] mg PO DAILY BP #90 tabs 05/30/23 aspirin 81 mg tablet,delayed release 81 mg PO DAILY@0800 90 days #90 tabs 11/11/23 atorvastatin 80 mg tablet 80 mg PO QHS 90 days #90 tabs 11/11/23 denosumab 60 mg/mL subcutaneous syringe (Prolia) 60 mg subcut [id number] #1 mL 12/12/23 albuterol sulfate 90 mcg/actuation aerosol inhaler 1 - 2 puff inhalation Q6H PRN PRN Sob /Or Wheezing #8.5 grams 02/29/24 fluticasone fur. 100 mcg-umeclid 62.5 mcg-vilant 25 mcg inhalat.powder (Trelegy Ellipta) 1 inh inhalation Q24H 3 months #60 ea 09/25/24 pramipexole 1.5 mg tablet 1.5 mg PO QHS #30 tabs 10/02/24 Hospital Course Procedures - (Heart catheterization with stent placement) Summary of Care Provided Minutes Spent on Discharge: 32 Hospital Course: Per HPI: GIOVANNI LOMAX, is a 69 F with a history of coronary artery disease with 2 previous stents, hypertension, COPD, tobacco use who presented [facility] ED 12/27/2024 due to chest pain. In the ED patient did initially have a blood pressure of 225/106 with downtrend into 180s, heart rate of 88, respiratory rate 16 and 97% on room air. EKG with no overt ischemic changes but initial troponin 102 with repeat of 116, patient placed on heparin drip and hospitalist contacted for admission. Patient evaluated at bedside and reports she had been in her usual health until last night when she had some nausea, she went to bed and woke up with burning in the center of her chest that radiated between her shoulder blades. The pain in her back was similar to previous heart attacks prompting her to come to the ED. Patient currently has a little bit of a headache but reports not presently having the pain in the front of her chest or nausea. Denies any other new or acute complaints INTERVAL HISTORY: Patient went to [facility] shortly after presentation and underwent stenting of a severely diseased RCAWhich she tolerated well. She did get Brilinta. Heart cath and developed shortness of breath but was completely vitally stable with no tachycardic or hypoxia and physical exam normal, it was discussed with cardiology and felt to be Brilinta so this was discontinued and patient's Plavix was resumed and the symptoms resolved. Patient did have some EKG changes but it was felt that this was Evolving residual changes from original event. Initially admission for 1 more day of monitoring for any arrhythmias was discussed with patient but she was adamant that she would be DC home today, ultimately she was agreeable to ambulating the halls and evaluating for hypoxia and if she did not have any ectopy on telemetry by this afternoon she would DC home on current medications and follow-up closely with cardiology which patient was agreeable. Patient ambulated in the (more content not included)... [facility] 12-29-2024 Progress note Note Date/Time December 29, 2024 9:56am [facility] Medical Records Department [address] [facility] [place] [address] Progress Note - Cardiology 12/29/24 0949 MR#: [id number] Acct: [id number] Name: GIOVANNI LOMAX Rep #:[id number] : 1955 69 From: Alonzo Blackburn MD PCP: Dr. Leonidas Traore MD Status:A DM IN Location: [place] [address]- 1 Subjective Subjective Patient resting comfortably in the bed. She denies any chest pain denies any significant shortness of breath. The patient did have a reaction to Brilinta where she became profoundly short ofbreath yesterday and resolved spontaneously. She had been on Plavix long-term and Plavix was reinstituted at 75 mg daily. The patient's ECG is consistent with an evolving inferior wall insult she has had no recurrence of any chest symptoms since her procedure. The patient's had no significant ectopy documented on the telemetry. Objective Data Vital Signs: Vital Signs Temp Pulse Resp BP Pulse Ox O2 Del Method O2 Flow Rate 97.8 F 74 18 157/89 H 95 Room Air 2 12/29/24 09:05 12/29/24 09:14 12/29/24 09:05 12/29/24 09:14 12/29/24 09:05 12/29/24 09:05 12/28/24 21:07 Oxygen Flow Rate (L/min) 2 Oxygen Delivery Method Room Air Weight: 193 lb 5.526 oz Body Mass Index (BMI) 33.2 Intake & Output: Intake and Output for Last 24 Hours 12/27/24 12/28/24 12/29/24 23:59 23:59 23:59 Intake Total 268.17 / 268.17 Balance 268.17 / 268.17 Lab / Micro Data Attestation: I reviewed the patient's lab results. 12/29/24 06:23 12/29/24 06:23 Labs: Laboratory Results - last 24 hr 12/28/24 10:50: Activated Clotting Time 204 H 12/29/24 06:23: WBC 9.9, RBC 4.89, Hgb 14.1, Hct 43.0, MCV 87.9, MCH 28.8, MCHC 32.8, RDW Std Deviation 44.6 H, RDW Coeff of Joleen 13.9, Plt Count 326, MPV 9.8, Immature Gran % (Auto) 0.300, Neut % (Auto) 72.4 H, Lymph % (Auto) 19.7, [place] % (Auto) 5.5, Eos % (Auto) 1.6, Baso % (Auto) 0.5, Absolute Neuts (auto) 7.2, Absolute Lymphs (auto) 1.95, Nucleated RBC % 0, PT 12.8, INR 1.0, Sodium 139, Potassium 3.6, Chloride 102, Carbon Dioxide 25.2, Anion Gap 12, BUN 25 H, Creatinine 0.84, Estim Creat Clear Calc 69.66, Est GFR (MDRD) Non-Af 77, BUN/Creatinine Ratio 29.3 H, Glucose 132 H, Calcium 8.8, Total Bilirubin 0.59, AST 27, ALT 16, Alkaline Phosphatase 63, Total Protein 7.1, Albumin 3.9, Globulin 3.2, Albumin/Globulin Ratio 1.2, TSH 0.775 Rhythm Strip Rhythm Strip: Sinus Rhythm Rate: 70 Cardiology Labs/Tests 12/29/24 06:23: WBC 9.9, RBC 4.89, Hgb 14.1, Hct 43.0, MCV 87.9, MCH 28.8, MCHC 32.8, Plt Count 326, MPV 9.8, Immature Gran % (Auto) 0.300, Neut % (Auto) 72.4 H, Lymph % (Auto) 19.7, [place] % (Auto) 5.5, Eos % (Auto) 1.6, Baso % (Auto) 0.5, Absolute Neuts (auto) 7.2, Nucleated RBC % 0, PT 12.8, INR 1.0, Sodium 139, Potassium 3.6, Chloride 102, Carbon Dioxide 25.2, Anion Gap 12, BUN 25 H, Creatinine 0.84, Est GFR (MDRD) Non-Af 77, BUN/Creatinine Ratio 29.3 H, Glucose 132 H, Calcium 8.8, Total Bilirubin 0.59 Rhythm: EKG: ECHO: Stress Test: Cardiac Cath: PCI: CT Surgery: Holter monitor: EPS: PPM: CXR: Chest CT Scan: Physical Exam Const alert and oriented x3 HEENT normocephalic Eyes EOMs intact bilaterally Neck no JVD Chest inspection of chest normal Resp normal respiratory effort Auscultation: diminished lung sounds bilateral lower Cardio Rate: regular rate Rhythm: regular rhythm Heart Sounds: S1 normal and S2 normal; Negative for click, gallop or murmur Peripheral Pulses: radial pulses present right (Minor ecchymoses neurovascular intact.) 1+ Extremity no pedal edema Neuro Neuro Narrative: Alert and oriented x 3 Psych mental status grossly normal Assessment & Plan Assessment/Plan (1) Non-ST elevated myocardial infarction (non-STEMI): PLAN: Patient had ECG changes consistent with a non-X7 elevation infarct. She underwent stenting of the severely diseased right coronary artery and IFR was negative of the LAD lesion. Patient was intolerant of Brilinta as she is back on her home dose of Plavix with aspirin. She must continue this uninterrupted for at least 1 year. The patient's had no significant ectopy to date. I would recommend the patient be up and ambulated in the halls if she tolerates ambulation with appropriate [id number] on room air and has no significant ectopy she could be able to be discharged to home later today. I discussed this in detail with the hospitalist and nursing team. (2) COPD (chronic obstructive pulmonary disease): QUALIFIERS: COPD type: unspecified COPD Qualified Code(s): J44.9 - Chronic obstructive pulmonary disease, unspecified PLAN: The patient will continue her home treatments for her COPD. (3) Hyperlipidemia: QUALIFIERS: Hyperlipidemia type: pure hypercholesterolemia Qualified Code(s): E78.00 - Pure hypercholesterolemia, unspecified PLAN: Patient is already on intensive statin therapy in her home environment andatorvastatin 80 mg daily. She will continue this. (4) Hypertension: QUALIFIERS: Hypertension type: essential hypertension Qualified Code(s): I10 - Essential (primary) hypertension PLAN: Blood pressure is much better controlled today. She will continue her current medical therapy. PLAN: Plan 1. Ambulated in the halls with O2 saturation check and monitoring for any significant arrhythmias. 2. Can discharge to home later today if no significant arrhythmias documented. 3. Patient to follow-up with Edilia advanced practitioner in the [facility] in 7 to 10 days. 4. Patient will follow-up with Dr. Blackburn in 4 to 6 weeks in the [facility] office. Charges/Coding Visit Charges Inpatient E&M: 87181 Subs Hosp L2 12/29/24 0956 <Electronically signed by Alozno Blackburn MD> Cosigner Signature (if applicable): CC: ~ Signed [facility] Work Phone: 1(508) 563-644106-21-2025 Progress note [facility] Medical Records Department [address] [place] [address] Progress Note - Cardiology 12/29/24 0949 MR#: [id number] Acct: [id number] Name: GIOVANNI LOMAX Rep #:[id number] : 1955 69 From: Alonzo Blackburn MD PCP: Dr. Leonidas Traore MD Status:A DM IN Location: [place] [address] Subjective Subjective Patient resting comfortably in the bed. She denies any chest pain denies any significant shortness of breath. The patient did have a reaction to Brilinta where she became profoundly short ofbreath yesterday and resolved spontaneously. She had been on Plavix long-term and Plavix was reinstituted at 75 mg daily. The patient's ECG is consistent with an evolving inferior wall insult she has had no recurrence of any chest symptoms since her procedure. The patient's had no significant ectopy documented on the telemetry. Objective Data Vital Signs: Vital Signs Temp Pulse Resp BP Pulse Ox O2 Del Method O2 Flow Rate 97.8 F 74 18 157/89 H 95 Room Air 2 12/29/24 09:05 12/29/24 09:14 12/29/24 09:05 12/29/24 09:14 12/29/24 09:05 12/29/24 09:05 12/28/24 21:07 Oxygen Flow Rate (L/min) 2 Oxygen Delivery Method Room Air Weight: 193 lb 5.526 oz Body Mass Index (BMI) 33.2 Intake & Output: Intake and Output for Last 24 Hours 12/27/24 12/28/24 12/29/24 23:59 23:59 23:59 Intake Total 268.17 / 268.17 Balance 268.17 / 268.17 Lab / Micro Data Attestation: I reviewed the patient's lab results. 12/29/24 06:23 12/29/24 06:23 Labs: Laboratory Results - last 24 hr 12/28/24 10:50: Activated Clotting Time 204 H 12/29/24 06:23: WBC 9.9, RBC 4.89, Hgb 14.1, Hct 43.0, MCV 87.9, MCH 28.8, MCHC 32.8, RDW Std Deviation 44.6 H, RDW Coeff of Joleen 13.9, Plt Count 326, MPV 9.8, Immature Gran % (Auto) 0.300, Neut % (Auto) 72.4 H, Lymph % (Auto) 19.7, [place] % (Auto) 5.5, Eos % (Auto) 1.6, Baso % (Auto) 0.5, Absolute Neuts (auto) 7.2, Absolute Lymphs (auto) 1.95, Nucleated RBC % 0, PT 12.8, INR 1.0, Sodium 139, Potassium 3.6, Chloride 102, Carbon Dioxide 25.2, Anion Gap 12, BUN 25 H, Creatinine 0.84, Estim Creat Clear Calc 69.66, Est GFR (MDRD) Non-Af 77, BUN/Creatinine Ratio 29.3 H, Glucose 132 H, Calcium 8.8, Total Bilirubin 0.59, AST 27, ALT 16, Alkaline Phosphatase 63, Total Protein 7.1, Albumin 3.9, Globulin 3.2, Albumin/Globulin Ratio 1.2, TSH 0.775 Rhythm Strip Rhythm Strip: Sinus Rhythm Rate: 70 Cardiology Labs/Tests 12/29/24 06:23: WBC 9.9, RBC 4.89, Hgb 14.1, Hct 43.0, MCV 87.9, MCH 28.8, MCHC 32.8, Plt Count 326, MPV 9.8, Immature Gran % (Auto) 0.300, Neut % (Auto) 72.4 H, Lymph % (Auto) 19.7, [place] % (Auto) 5.5, Eos % (Auto) 1.6, Baso % (Auto) 0.5, Absolute Neuts (auto) 7.2, Nucleated RBC % 0, PT 12.8, INR 1.0, Sodium 139, Potassium 3.6, Chloride 102, Carbon Dioxide 25.2, Anion Gap 12, BUN 25 H, Creatinine0.84, Est GFR (MDRD) Non-Af 77, BUN/Creatinine Ratio 29.3 H, Glucose 132 H, Calcium 8.8, Total Bilirubin 0.59 Rhythm: EKG: ECHO: Stress Test: Cardiac Cath: PCI: CT Surgery: Holter monitor: EPS: PPM: CXR: Chest CT Scan: Physical Exam Const alert and oriented x3 HEENT normocephalic Eyes EOMs intact bilaterally Neck no JVD Chest inspection of chest normal Resp normal respiratory effort Auscultation: diminished lung sounds bilateral lower Cardio Rate: regular rate Rhythm: regular rhythm Heart Sounds: S1 normal and S2 normal; Negative for click, gallop or murmur Peripheral Pulses: radial pulses present right (Minor ecchymoses neurovascular intact.) 1+ Extremity no pedal edema Neuro Neuro Narrative: Alert and oriented x 3 Psych mental status grossly normal Assessment & Plan Assessment/Plan (1) Non-ST elevated myocardial infarction (non-STEMI): PLAN: Patient had ECG changes consistent with a non-X7 elevation infarct. She underwent stenting ofthe severely diseased right coronary artery and IFR was negative of the LAD lesion. Patient was intolerant of Brilinta as she is back on her home dose of Plavix with aspirin. She mustcontinue this uninterrupted for at least 1 year. The patient's had no significant ectopy to date. I would recommend the patient be up and ambulated in the halls if she tolerates ambulation with appropriate [id number] on room air and has no significant ectopy she could be able to be discharged to home later today. I discussed this in detail with the hospitalist and nursing team. (2) COPD (chronic obstructive pulmonary disease): QUALIFIERS: COPD type: unspecified COPD Qualified Code(s): J44.9 - Chronic obstructive pulmonary disease, unspecified PLAN: The patient will continue her home treatments for her COPD. (3) Hyperlipidemia: QUALIFIERS: Hyperlipidemia type: pure hypercholesterolemia Qualified Code(s): E78.00 - Pure hypercholesterolemia, unspecified PLAN: Patient is already on intensive statin therapy in her home environment andatorvastatin 80 mg daily. She will continue this. (4) Hypertension: QUALIFIERS: Hypertension type: essential hypertension Qualified Code(s): I10 - Essential (primary) hypertension PLAN: Blood pressure is much better controlled today. She will continue her current medical therapy. PLAN: Plan 1. Ambulated in the halls with O2 saturation check and monitoring for any significant arrhythmias. 2. Can discharge to home later today if no significant arrhythmias documented. 3. Patient to follow-up with Edilia advanced practitioner in the [facility] in 7 to 10 days. 4. Patient will follow-up with Dr. Blackburn in 4 to 6 weeks in the [facility] office. Charges/Coding Visit Charges Inpatient E&M: 23099 Subs Hosp L2 12/29/24 0956 Cosigner Signature (if applicable): CC: ~ Signed [facility]06-20-2025 Progress note Author Temi Banda [facility] Note Date/Time December 28, 2024 4:19 pm [facility] Medical Records Department [address] [place] [address] Progress Note - Hospitalist 12/28/24 1614 MR#: [id number] Acct: [id number] Name: GIOVANNI LOMAX Rep #:[id number] : 1955 69 From: Temi Banda MD PCP: Dr. Leonidas Traore MD Status:A DM IN Location: [place] [address] Hospitalist Note Patient reported shortness of breath about an hour after she reached the floor, other than her hypertension she is vitally stable with no tachycardia and O2 sat98% on room air, she was put on 2 L for comfort. Went to evaluate patient at bedside and she reports that this started after getting to the floor, she is notcoughing and has no other new or acute complaints including chest pain other than feeling anxious because of the shortness of breath. Lungs clear to auscultation, heart regular rate and rhythm. Patient was given Brilinta before coming to the floor and strongly suspect this is the cause of her shortness of breath. Discussed with cardiology who also suspect this is the etiology of her shortness of breath given her otherwise normal vital signs and physical exam, sothis has been discontinued and Plavix will be resumed and patient will continue to be monitored. Could consider further workup if symptoms worsen or patient has any vital abnormalities however at this time given the high suspicion of medication side effect do not feel further workup is necessary. 12/28/24 1619 <Electronically signed by Temi Banda MD> Cosigner Signature (if applicable): CC: ~ Signed [facility] Work Phone: 1(721) 169-717306-20-2025 Progress note [facility] Medical Records Department [address] [place] [address] Progress Note - Hospitalist 12/28/24 161 MR#: [id number] Acct: [id number] Name: GIOVANNI LOMAX Rep #:[id number] : 1955 69 From: Temi Banda MD PCP: Dr. Leonidas Traore MD Status:A DM IN Location: [place] [address] Hospitalist Note Patient reported shortness of breath about an hour after she reached the floor, other than her hypertension she is vitally stable with no tachycardia and O2 sat98% on room air, she was put on 2 L forcomfort. Went to evaluate patient at bedside and she reports that this started after getting to thefloor, she is notcoughing and has no other new or acute complaints including chest pain other than feeling anxious because of the shortness of breath. Lungs clear to auscultation, heart regular rate and rhythm. Patient was given Brilinta before coming to the floor and strongly suspect this is the cause of her shortness of breath. Discussed with cardiology who also suspect this is the etiology of her shortness of breath given her otherwise normal vital signs and physical exam, sothis has been discontinued and Plavix will be resumed and patient will continue to be monitored. Could consider further workup if symptoms worsen or patient has any vital abnormalities however at this time given the high suspicion of medication side effect do not feel further workup is necessary. 12/28/24 1619 Cosigner Signature (if applicable): CC: ~ Signed [facility]06-20-2025 Consult note Author Alonzo Blackburn [facility] Note Date/Time December 28, 2024 10:5 5am [facility] Medical Records Department [address] [place] [address] Consultation - Cardiology 12/28/24 1039 MR#: [id number] Acct: [id number] Name: GIOVANNI LOMAX Rep #:[id number] : 1955 69 From: Alonzo Blackburn MD PCP: Dr. Leonidas Traore MD Status:A DM IN Location: [place] [address] Assessment & Plan Assessment/Plan (1) Non-ST elevated myocardial infarction (non-STEMI): PLAN: Patient's presenting complaints are very similar if not identical to what she presented with prior to her stenting procedure. The patient's ECG does not show any acute ischemic changes although she is pain-free at the time it was performed. Her enzymes are mildly positive at 105 and 115. Her blood pressure was significantly elevated in the 220 range when she first presented it is now down to 180. She did not get relief with sublingual nitro in her home environment although were not certain of the age of her nitro pills. Given the patient's known coronary disease status post stenting of the right coronary artery on 2 separate occasions latest was in 2018. Would recommend thepatient proceed with left heart catheterization to definitively rule out progressive coronary artery disease. The patient does continue to smoke her blood pressure has been consistently elevated and difficult to control and we donot know her cholesterol level. She is on intensive statin therapy. She is also on Plavix and aspirin. The cardiac catheterization procedure risk/benefit and alternatives were explained to the patient in detail she voiced understanding and agrees to proceed. The patient is not allergic to iodine. She has been on her Plavix andaspirin. (2) COPD (chronic obstructive pulmonary disease): QUALIFIERS: COPD type: unspecified COPD Qualified Code(s): J44.9 - Chronic obstructive pulmonary disease, unspecified PLAN: Patient carries a history of COPD and has been followed by the pulmonary department here at [facility] in the past. The patient has not been seen in the [facility] since 2022. PLAN: Plan 1. Recommend urgent left heart catheterization. 2. Further recommendations pending the outcome of the catheterization. HPI Consult Data Date of Consult: 12/28/24 HPI Narrative Reason for Consultation: Chest pain and known coronary artery disease HPI Narrative: GIOVANNI LOMAX, is a 69 F who presents with a history of chest discomfort radiating up into her shoulders that started last evening and reminds her of thesymptoms she had prior to her stenting procedure. The patient's right coronary has been stented twice. The last time was January 2019. Her mid right coronary was stented and 5 minutes after completing the case her proximal right coronary was spontaneously occluded and was reintervened upon with a second stent. The patient's symptoms were very similar to what she is experiencing in her homethat led up to her coming to the ER today. Her ECG is normal however her troponins are positive at 105 up to 115. The patient does have a history of dyspnea on exertion which is chronic and she continues to smoke. Patient also has a history of significant hypertension her blood pressure was 220 when she arrived in the emergency department is now down to 180. We are instituting IV nitroglycerin to better control her blood pressure she is pain-free at this point in time. [facility] Medical History (Updated 12/28/24 @ 10:[address] Alonzo Blackburn MD) Carotid artery disease Urinary frequency History of TIA (transient ischemic attack) Nausea Chronic left hip pain Left shoulder pain Anxiety Smoker Myocardial infarct Health care maintenance Colon cancer screening Flu vaccine need Patient noncompliance Tobacco abuse Anxiety and depression Left hand pain History of fracture of clavicle Fracture Depression Chronic pain COPD (chronic obstructive pulmonary disease) Osteoporosis Pre-op chest exam Hyperlipidemia Atherosclerotic heart disease of [place] coronary artery without angina pectoris ST elevation myocardial infarction (STEMI) Hypertension Home Medications ?Medication ?Instructions ?Recorded ?Last Taken ?Type clopidogrel 75 mg tablet (Plavix) 75 mg PO DAILY antip latelet #90 04/29/23 Unknown Rx tabs hydrochlorothiazide 25 mg tablet 25 mg PO DAILY BP #90 tabs 04/29/23 Unknown Rx losartan 100 mg tablet 100 mg PO DAILY dose increas e (BP) 04/29/23 Unknown Rx #90 tabs metoprolol tartrate 25 mg tablet 25 mg PO BID BP #180 tabs 04/29/23 Unknown Rx nitroglycerin 0.4 mg sublingual 0.4 mg sublingual Q5M PRN Chest 04/29/23 Unknown Rx tablet Pain #25 tabs amlodipine 10 mg tablet 10 mg PO DAILY BP #90 tabs 1 07/30/22 Unknown Rx aspirin 81 mg tablet,delayed 81 mg PO DAILY@0800 90 da ys #90 11/11/23 Unknown Rx release tabs atorvastatin 80 mg tablet 80 mg PO QHS 90 days #90 tab s 11/11/23 Unknown Rx denosumab 60 mg/mL subcutaneous 60 mg subcut [id number] #1 mL 12/12/23 Unknown Rx syringe (Prolia) albuterol sulfate 90 mcg/actuation 1 - 2 puff inhalati on Q6H PRN PRN 02/29/24 Unknown Rx aerosol inhaler Sob &/Or Wheezing #8.5 grams fluticasone fur. 100 mcg-umeclid 1 inh inhalation Q24H 3 months #60 09/25/24 Unknown Rx 62.5 mcg-vilant 25 mcg ea inhalat.powder (Trelegy Ellipta) pramipexole 1.5 mg tablet 1.5 mg PO QHS #30 tabs 10/02 Unknown Rx Allergy/AdvReac Type Severity Reaction Status Date / Time No Known Allergies Allergy Verified 12/28/24 05:24 Family History Father , 52 Myocardial infarction Heart disease Hyperlipemia Brother Myocardial infarction CAD (coronary artery disease) CABG and stents Mother Arthritis Depression Osteoporosis Seizures Son Suicide Depression Other Cancer Surgical History History of tonsillectomy History of oophorectomy History of hysterectomy History of shoulder surgery Stented coronary artery (01/10/19) Social History housing: house Smoking Status: Current every day smoker tobacco type: cigarettes Tobacco: How many years used: 50 alcohol intake: current alcohol intake frequency: holidays/special occasions only Alcohol type: wine substance use type: marijuana caffeine: Yes Type: coffee Number of servings: 3 what type of physical activity do you participate in: none ROS Constitutional Constitutional: Reports as per HPI Eyes Eyes: Reports systems reviewed and no addt'l complaints, except as documented ENT HEENT: Reports systems reviewed and no addt'l complaints, except as documented Cardiovascular Cardiovascular: Reports as per HPI Respiratory/Chest Respiratory/Chest: Reports as per HPI Gastrointestinal Gastrointestinal: Reports systems reviewed and no addt'l complaints, except as documented Genitourinary Genitourinary: Reports systems reviewed and no addt'l complaints, except as documented Musculoskeletal Musculoskeletal: Reports systems reviewed and no addt'l complaints, except as documented Integumentary Integumentary: Reports systems reviewed and no addt'l complaints, except as documented Neurologic Neurologic: Reports systems reviewed and no addt'l complaints, except as documented Psychiatric Psychiatric: Reports systems reviewed and no addt'l complaints, except as documented Endocrine Endocrinology: Reports systems reviewed and no addt'l complaints, except as documented Hematologic/Lymphatic Hematologic/Lymphatic: Reports systems reviewed and no addt'l complaints, exceptas documented Allergic/Immunologic Allergic/Immunologic: Reports systems reviewed and no addt'l complaints, except as documented Physical Exam Const alert and oriented x3 HEENT normocephalic Eyes EOMs intact bilaterally Neck no JVD and no carotid bruits Chest inspection of chest normal Resp normal respiratory effort and clear to auscultation bilaterally Cardio Rate: regular rate Rhythm: regular rhythm Heart Sounds: S1 normal and S2 normal; Negative for click, gallop or murmur Peripheral Pulses: radial pulses present bilateral 2+ Extremity no pedal edema Skin no rashes or lesions noted Neuro Neuro Narrative: Alert and oriented x 3 Psych mental status grossly normal Risk Stratification Risk Stratification Applicable: Yes Age >/= 65: Yes >/= 3 CAD Risk Factors (HTN, HLD, DM, family hx of CAD, or current smoker): Yes Aspirin Use in the Past 7 Days: Yes Severe Angina (>/= episodes in 24 hours): Yes EKG ST Changes >/= 0.5mm: No Positive Cardiac Marker: Yes DEMOND Risk Stratification Score: 5 DEMOND % Risk: 25% Risk Charges/Coding Visit Charges Inpatient E&M: 92522 Init Hosp L2 Objective Data Vital Signs: Vital Signs Temp Pulse Resp BP Pulse Ox O2 Del Method 98.2 F 78 19 H 189/103 H 95 Room Air 12/28/24 09:36 12/28/24 09:36 12/28/24 09:36 12/28/24 09:36 12/28/24 09:36 12/28/24 09:36 Oxygen Delivery Method Room Air Weight: 189 lb 6.033 oz Body Mass Index (BMI) 32.5 Lab / Micro Data Attestation: I reviewed the patient's lab results. 12/28/24 05:22 12/28/24 05:22 Labs: Laboratory Results - last 24 hr 12/28/24 05:22: WBC 12.7 H, RBC 5.05, Hgb 14.6, Hct 44.3, MCV 87.7, MCH 28.9, MCHC 33.0, RDW Std Deviation 44.6 H, RDW Coeff of Joleen 13.9, Plt Count 344, MPV 10.4, Immature Gran % (Auto) 0.400, Neut % (Auto) 71.1 H, Lymph % (Auto) 22.2, [place] % (Auto) 4.8, Eos % (Auto) 0.9, Baso % (Auto) 0.6, Absolute Neuts (auto) 9.0 H, Absolute Lymphs (auto) 2.81, Nucleated RBC % 0, PT 12.8, INR 0.9, APTT 28.6, D- Dimer Quant (PE/DVT) 0.53 H*, Sodium 137, Potassium 4.1, Chloride 99, Carbon Dioxide 22.1, Anion Gap 16 H, BUN 18, Creatinine 0.71, Estim Creat Clear Calc 72.37, Est GFR (MDRD) Non-Af 94, BUN/Creatinine Ratio 25.4 H, Glucose 131 H, Calcium 8.9, Total Bilirubin 0.38, Direct Bilirubin 0.15, AST 20, ALT 16, Alkaline Phosphatase 68, Troponin T High Sens 102 H*, NT pro BNP II 174, Total Protein 7.7, Albumin 4.1, Globulin 3.6, Lipase 29 12/28/24 08:20: Troponin T Hi Sens 2 Hr 116 H* Rhythm Strip Rhythm Strip: Sinus Rhythm Rate: 80 Cardiology Labs/Tests 12/28/24 05:22: WBC 12.7 H, RBC 5.05, Hgb 14.6, Hct 44.3, MCV 87.7, MCH 28.9, MCHC 33.0, Plt Count 344, MPV 10.4, Immature Gran % (Auto) 0.400, Neut % (Auto) 71.1 H, Lymph % (Auto) 22.2, [place] % (Auto) 4.8, Eos % (Auto) 0.9, Baso % (Auto) 0.6, Absolute Neuts (auto) 9.0 H, Nucleated RBC % 0, PT 12.8, INR 0.9, APTT 28.6, D-Dimer Quant (PE/DVT) 0.53 H*, Sodium 137, Potassium 4.1, Chloride 99, Carbon Dioxide 22.1, Anion Gap 16 H, BUN 18, Creatinine 0.71, Est GFR (MDRD) Non-Af 94, BUN/Creatinine Ratio 25.4 H, Glucose 131 H, Calcium 8.9, Total Bilirubin 0.38, Direct Bilirubin 0.15 Rhythm: EKG: ECHO: Stress Test: Cardiac Cath: PCI: CT Surgery: Holter monitor: EPS: PPM: CXR: Chest CT Scan: Radiography Diagnostic Testing: Radiology Impression Chest X-Ray 12/28/24 06:15 IMPRESSION: No evidence for acute abnormality. Reading Location: [place] [address] 12/28/24 1055 <Electronically signed by Alonzo Blackburn MD> Cosigner Signature (if applicable): CC: Dr. Leonidas Traore MD~ Signed [facility] Work Phone: 1(912) 744-743606-20-2025 History and physical note Author Temi Banda [facility] Note Date/Time December 28, 2024 10:3 2am [facility] Medical Records Department [address] [place] [id number] H&P Exam - Hospitalist 12/28/24 1009 MR#: [id number] Acct: [id number] Name: GIOVANNI LOMAX Rep #:[id number] : 1955 69 From: Temi Banda MD PCP: Dr. Leonidas Traore MD Status:R EG ER Location: ED HPI - General General Date of Admission: 12/28/24 Date of Service: 12/28/24 Chief Complaint: Chest pain HPI Narrative GIOVANNI LOMAX, is a 69 F with a history of coronary artery disease with 2 previous stents, hypertension, COPD, tobacco use who presented [facility] ED 12/27/2024 due to chest pain. In the ED patient did initially have ablood pressure of 225/106 with downtrend into 180s, heart rate of 88, respiratory rate 16 and 97% on room air. EKG with no overt ischemic changes butinitial troponin 102 with repeat of 116, patient placed on heparin drip and hospitalist contacted for admission. Patient evaluated at bedside and reports she had been in her usual health until last night when she had some nausea, she went to bed and woke up with burning in the center of her chest that radiated between her shoulder blades. The pain in her back was similar to previous heartattacks prompting her to come to the ED. Patient currently has a little bit of a headache but reports not presently having the pain in the front of her chest or nausea. Denies any other new or acute complaints [facility] Medical History Carotid artery disease Urinary frequency History of TIA (transient ischemic attack) Nausea Chronic left hip pain Left shoulder pain Anxiety Smoker ICD (implantable cardioverter-defibrillator) in place Myocardial infarct Health care maintenance Colon cancer screening Flu vaccine need Patient noncompliance Tobacco abuse Anxiety and depression Left hand pain History of fracture of clavicle Fracture Depression Chronic pain COPD (chronic obstructive pulmonary disease) Osteoporosis Pre-op chest exam Hyperlipidemia Atherosclerotic heart disease of [place] coronary artery without angina pectoris ST elevation myocardial infarction (STEMI) Hypertension Home Medications ?Medication ?Instructions ?Recorded ?Last Taken ?Type clopidogrel 75 mg tablet (Plavix) 75 mg PO DAILY antip latelet #90 04/29/23 Unknown Rx tabs hydrochlorothiazide 25 mg tablet 25 mg PO DAILY BP #90 tabs 04/29/23 Unknown Rx losartan 100 mg tablet 100 mg PO DAILY dose increas e (BP) 04/29/23 Unknown Rx #90 tabs metoprolol tartrate 25 mg tablet 25 mg PO BID BP #180 tabs 04/29/23 Unknown Rx nitroglycerin 0.4 mg sublingual 0.4 mg sublingual Q5M PRN Chest 04/29/23 Unknown Rx tablet Pain #25 tabs amlodipine 10 mg tablet 10 mg PO DAILY BP #90 tabs 1 07/30/22 Unknown Rx aspirin 81 mg tablet,delayed 81 mg PO DAILY@0800 90 da ys #90 11/11/23 Unknown Rx release tabs atorvastatin 80 mg tablet 80 mg PO QHS 90 days #90 tab s 11/11/23 Unknown Rx denosumab 60 mg/mL subcutaneous 60 mg subcut [id number] #1 mL 12/12/23 Unknown Rx syringe (Prolia) albuterol sulfate 90 mcg/actuation 1 - 2 puff inhalati on Q6H PRN PRN 02/29/24 Unknown Rx aerosol inhaler Sob &/Or Wheezing #8.5 grams fluticasone fur. 100 mcg-umeclid 1 inh inhalation Q24H 3 months #60 09/25/24 Unknown Rx 62.5 mcg-vilant 25 mcg ea inhalat.powder (Trelegy Ellipta) pramipexole 1.5 mg tablet 1.5 mg PO QHS #30 tabs 10/02 Unknown Rx Allergy/AdvReac Type Severity Reaction Status Date / Time No Known Allergies Allergy Verified 12/28/24 05:24 Family History Father , 52 Myocardial infarction Heart disease Hyperlipemia Brother Myocardial infarction CAD (coronary artery disease) CABG and stents Mother Arthritis Depression Osteoporosis Seizures Son Suicide Depression Other Cancer Surgical History History of tonsillectomy History of oophorectomy History of hysterectomy History of shoulder surgery Stented coronary artery (01/10/19) Social History housing: house Smoking Status: Current every day smoker tobacco type: cigarettes Tobacco: How many years used: 50 alcohol intake: current alcohol intake frequency: holidays/special occasions only Alcohol type: wine substance use type: marijuana caffeine: Yes Type: coffee Number of servings: 3 what type of physical activity do you participate in: none ROS ROS Narrative General: Denies fever/chills HENT: Little bit of a headache, denies stuffy nose, denies sore throat EYES: Denies changes in vision Resp: Denies any new cough, does have some baseline shortness of breath but thisis unchanged Cardiac: Denies chest pain currently GI: Denies abdominal pain, denies changes in bowel, denies nausea/vomiting currently : Denies changes in urination Extremity: Denies swelling MSK: Denies weakness Neuro: Denies any numbness/tingling Heme: Denies any bleeding or bruising Skin: Denies rashes Psychiatric: No complaints voiced Vital Signs Vital Signs Vital Signs: 12/28/24 05:19 12/28/24 05:28 12/28/24 06:18 Temperature 98.6 F Temperature Source Oral Pulse Rate 88 83 76 Respiratory Rate 16 20 H 18 Blood Pressure 225/106 H 206/97 H 180/98 H Blood Pressure Mean 145 133 125 Pulse Ox 97 97 95 Oxygen Delivery Method Room Air Room Air Room Air 12/28/24 06:32 12/28/24 07:00 12/28/24 07:00 Temperature Temperature Source Pulse Rate 71 71 72 Respiratory Rate 20 H 20 H 20 H Blood Pressure 188/86 H 193/100 H 193/100 H Blood Pressure Mean 120 131 128 Pulse Ox 94 93 94 Oxygen Delivery Method Room Air Room Air 12/28/24 07:15 12/28/24 08:00 12/28/24 08:41 Temperature Temperature Source Pulse Rate 77 85 Respiratory Rate 15 18 Blood Pressure 188/96 H 190/99 H 190/99 H Blood Pressure Mean 122 129 127 Pulse Ox 95 96 Oxygen Delivery Method Room Air 12/28/24 08:45 12/28/24 09:00 12/28/24 09:33 Temperature 98.2 F Temperature Source Pulse Rate 74 72 79 Respiratory Rate 20 H 19 H 20 H Blood Pressure 195/96 H 185/92 H 189/103 H Blood Pressure Mean 123 116 131 Pulse Ox 95 95 96 Oxygen Delivery Method 12/28/24 09:36 Temperature 98.2 F Temperature Source Oral Pulse Rate 78 Respiratory Rate 19 H Blood Pressure 189/103 H Blood Pressure Mean 131 Pulse Ox 95 Oxygen Delivery Method Room Air Weight Weight: 85.9 kg Body Mass Index (BMI) 32.5 Physical Exam Narrative General: Alert, oriented, no apparent distress HEENT: Atraumatic, normocephalic Eyes: Anicteric, normal conjunctiva, extraocular movements grossly intact Neck: Supple Respiratory: Scattered wheezes, normal respiratory effort Cardiovascular: Regular rate and rhythm GI: Soft, nontender, nondistended Extremities: No edema Musculoskeletal: Moving all extremities Neuro: No overt focal neurological deficits Skin: No rashes appreciated Psych: Cooperative Results Lab / Micro Data 12/28/24 05:22 12/28/24 05:22 Labs: Laboratory Results - last 24 hr 12/28/24 05:22: WBC 12.7 H, RBC 5.05, Hgb 14.6, Hct 44.3, MCV 87.7, MCH 28.9, MCHC 33.0, RDW Std Deviation 44.6 H, RDW Coeff of Joleen 13.9, Plt Count 344, MPV 10.4, Immature Gran % (Auto) 0.400, Neut % (Auto) 71.1 H, Lymph % (Auto) 22.2, [place] % (Auto) 4.8, Eos % (Auto) 0.9, Baso % (Auto) 0.6, Absolute Neuts (auto) 9.0 H, Absolute Lymphs (auto) 2.81, Nucleated RBC % 0, PT 12.8, INR 0.9, APTT 28.6, D- Dimer Quant (PE/DVT) 0.53 H*, Sodium 137, Potassium 4.1, Chloride 99, Carbon Dioxide 22.1, Anion Gap 16 H, BUN 18, Creatinine 0.71, Estim Creat Clear Calc 72.37, Est GFR (MDRD) Non-Af 94, BUN/Creatinine Ratio 25.4 H, Glucose 131 H, Calcium 8.9, Total Bilirubin 0.38, Direct Bilirubin 0.15, AST 20, ALT 16, Alkaline Phosphatase 68, Troponin T High Sens 102 H*, NT pro BNP II 174, Total Protein 7.7, Albumin 4.1, Globulin 3.6, Lipase 29 12/28/24 08:20: Troponin T Hi Sens 2 Hr 116 H* Imaging Radiology Impression Chest X-Ray 12/28/24 06:15 IMPRESSION: No evidence for acute abnormality. [facility] Assessment & Plan Assessment/Plan (1) Chest pain: PLAN: Plan # NSTEMI unclear subtype - Patient presented with burning chest pain rating to her back with the back pain similar to previous MIs concerning that this may be a type I NSTEMI - No EKG changes but initial troponin 102 with increased to 116 - Trend troponins - Continue heparin drip - Cardiology consulted, will keep patient n.p.o. as she may need heart catheterization - Patient has aspirin and Plavix on home medication list as well as metoprolol, will continue - Echo ordered # Hypertensive urgency versus emergency - If cardiac workup otherwise unrevealing may be that patient's elevated troponins were due to her significantly high blood pressure however given her concerning signs and symptoms consistent with a previous ID requiring stenting there is concern this could be a type I ID - Will continue home medications and add as needed -May ultimately need further medication adjustments if patient remains hypertensive - Cardiology consulted #Hx COPD -Continue home inhalers -Incentive spirometer #Tobacco use -Advise cessation -Nicotine replacement available if desired #DVT ppx: Presently on heparin drip Temi Banda MD Charges/Coding Visit Charges Inpatient E&M: 52017 Init Hosp L2 12/28/24 1032 <Electronically signed by Temi Banda MD> Cosigner Signature (if applicable): CC: Dr. Leonidas Traore MD; Dr. Temi Banda MD~ Signed [facility] Work Phone: 1(928) 200-520606-20-2025 Study report [facility] Cardiac Re[facility] [address] [place] [address] CR: Phase I Education Summary MR#: [id number] Acct: [id number] Name: GIOVANNI LOMAX Rep #:[id number] : 1955 69 From: Naveen Johnson PCP: Dr. Leonidas Traore MD DOS: General Education Discussed with Patient CAD and cardiac anatomy and function:: Patient communicates acknowledgment, Family communicates acknowledgment and Needs reinforcement Explanation of diagnoses and procedures:: Patient communicates acknowledgment, Family communicates acknowledgment and Needs reinforcement Sign/Symptoms of ID:: Patient communicates acknowledgment, Family communicates acknowledgment and Needs reinforcement Antiplatelet therapy: Patient communicates acknowledgment, Family communicates acknowledgment and Needs reinforcement Proper use of NTG-SL: Patient communicates acknowledgment, Family communicates acknowledgment and Needs reinforcement Emergency procedures and activation of EMS: Patient communicates acknowledgment,Family communicatesacknowledgment and Needs reinforcement Compliance of all prescribed medications: Patient communicates acknowledgment, Family communicates acknowledgment and Needs reinforcement Smoking Risk Factors Patient Nicotine/Smoking Risk Factors Are:: Cigarettes Recommendations Recommendations Include:: Smoking cessation strategies/Smoking packet and Participation in a smoking cessation program Response Code Nicotine/Smoking Response Code:: Patient communicates acknowledgment, Family communicates acknowledgment and Needs reinforcement Dyslipidemia Risk Factors Patient Dyslipidemia Risk Factors Are:: Total Cholesterol, Triglycerides, HDL and LDL Recommendations Recommendations Include:: Lipid profile not available Response Code Dyslipidemia Response Code:: Patient communicates acknowledgment, Family communicates acknowledgment and Needs reinforcement Overweight/Obesity Risk Factors Patient Overweight/Obesity Risk Factors Are:: Obesity - > or = 30 Recommendations Recommendations Include:: Weight loss of 5-10%, Reduced calorie diet and Exercise 5-7 times/week Response Code Overweight/Obesity:: Patient communicates acknowledgment, Family communicates acknowledgment and Needs reinforcement Hypertension Recommendations Recommendations Include:: Maintain BP <130/85, Decrease/maintain normal body weight and Moderation of ETOH Response Code Hypertension:: Patient communicates acknowledgment, Family communicates acknowledgment and Needs reinforcement Heart Disease Risk Factors Patient Heart Disease Risk Factors Are:: Previous cardiac event Recommendations Recommendations Include:: Educated family members of their risk and Educated family members of importance of prevention of heart disease Response Code Heart Disease Response Code:: Patient communicates acknowledgment, Family communicates acknowledgment and Needs reinforcement Sedentary Risk Factors Patient Sedentary Risk Factors Are:: Lack of regular exercise Recommendations Recommendations Include:: Aerobic exercise 5-7 times/week for 20-30 minutes continuously, Benefits of regular exercise, Discussed home walking program and Monitored Outpatient Cardiac Rehab Response Code Sedentary Response Code:: Patient communicates acknowledgment, Family communicates acknowledgment and Needs reinforcement 12/28/24 1229 Date Naveen Tijerina [facility] Outcome assessment reviewed. Exercise plan approved as documented. Treatment plan and goals support patient needs/abilities. Continue with current plan. I certify the patient demonstrates improvement and remains willing and capable of participation. the patient continues to benefit from cardiac rehab services/training. The patient may continue at current intensity, endurance andmodality and progress per protocol. Cosigner Signature: Date CC: ~ Signed [facility]06-[facility]-2025 Discharge summary Author Gonzalo Hurst [facility] Note Date/Time December 28, 2024 9:39 am [facility] Medical Records Department [address] [place] [address] Emergency Department Summary 12/28/24 MR#: [id number] Acct: [id number] Name: GIOVANNI LOMAX Rep #:[id number] : 1955 69 From: Gonzalo Hurst DO PCP: Dr. Leonidas Traore MD Status:R EG ER Location: ED ADDENDUM by Dr. Caleb Walls MD on 12/28/24 at 0939 Patient was endorsed to me by Dr. Gonzalo Hurst to check a second troponin on this patient that was having chest pain with history of coronary artery disease and stenting. She also has history of malignant hypertension. I reviewed her EKG as well as her initial troponin which was elevated at 102. Her repeat troponin is 116. She remains pain-free. Initially, it was reported that she wanted to sign out AGAINST MEDICAL ADVICE. However, after discussion with the patient and her , she is agreeable to staying. I discussed the patient with Dr. Temi Banda and started the patient on heparin. Dr. Blackburn was made aware patient's elevated troponin and admission. Disposition is admitted to thePCU in stable condition. 12/28/24 0939<Electronically signed by Caleb Walls MD> Cosigner Signature (if applicable): cc: Dr. Leonidas Traore MD ~* Signed HPI History of Present Illness Chief Complaint: Chest Pain Informant: patient and spouse/S.O. Narrative Narrative: Patient is a 69-year-old female with past medical history COPD coronary artery disease 2 previous STEMI's with last stent placement in 2019 and malignant hypertension. She states that despite taking her medication her blood pressure is typically 200/100. She states that last night she went to bed normally and then awoke with a vague discomfort in her mid to right sided chest that she alsofelt in between her shoulder blades. She states there was no associated nausea vomiting or diaphoresis. She reports her shortness of breath is at baseline. She states that the symptoms were similar to her previous ID but also different. She reports she took aspirin and nitro at home without symptom improvement but as she had concerned that the symptoms were cardiac in nature she presents for evaluation [facility] Medical History Carotid artery disease Urinary frequency History of TIA (transient ischemic attack) Nausea Chronic left hip pain Left shoulder pain Anxiety Smoker ICD (implantable cardioverter-defibrillator) in place Myocardial infarct Health care maintenance Colon cancer screening Flu vaccine need Patient noncompliance Tobacco abuse Anxiety and depression Left hand pain History of fracture of clavicle Fracture Depression Chronic pain COPD (chronic obstructive pulmonary disease) Osteoporosis Pre-op chest exam Hyperlipidemia Atherosclerotic heart disease of [place] coronary artery without angina pectoris ST elevation myocardial infarction (STEMI) Hypertension Home Medications ?Medication ?Instructions ?Recorded ?Last Taken ?Type clopidogrel 75 mg tablet (Plavix) 75 mg PO DAILY antip latelet #90 04/29/23 Unknown Rx tabs hydrochlorothiazide 25 mg tablet 25 mg PO DAILY BP #90 tabs 04/29/23 Unknown Rx losartan 100 mg tablet 100 mg PO DAILY dose increas e (BP) 04/29/23 Unknown Rx #90 tabs metoprolol tartrate 25 mg tablet 25 mg PO BID BP #180 tabs 04/29/23 Unknown Rx nitroglycerin 0.4 mg sublingual 0.4 mg sublingual Q5M PRN Chest 04/29/23 Unknown Rx tablet Pain #25 tabs amlodipine 10 mg tablet 10 mg PO DAILY BP #90 tabs 1 07/30/22 Unknown Rx aspirin 81 mg tablet,delayed 81 mg PO DAILY@0800 90 da ys #90 11/11/23 Unknown Rx release tabs atorvastatin 80 mg tablet 80 mg PO QHS 90 days #90 tab s 11/11/23 Unknown Rx denosumab 60 mg/mL subcutaneous 60 mg subcut [id number] #1 mL 12/12/23 Unknown Rx syringe (Prolia) albuterol sulfate 90 mcg/actuation 1 - 2 puff inhalati on Q6H PRN PRN 02/29/24 Unknown Rx aerosol inhaler Sob &/Or Wheezing #8.5 grams fluticasone fur. 100 mcg-umeclid 1 inh inhalation Q24H 3 months #60 09/25/24 Unknown Rx 62.5 mcg-vilant 25 mcg ea inhalat.powder (Trelegy Ellipta) pramipexole 1.5 mg tablet 1.5 mg PO QHS #30 tabs 10/02 Unknown Rx Allergy/AdvReac Type Severity Reaction Status Date / Time No Known Allergies Allergy Verified 12/28/24 05:24 Family History Father , 52 Myocardial infarction Heart disease Hyperlipemia Brother Myocardial infarction CAD (coronary artery disease) CABG and stents Mother Arthritis Depression Osteoporosis Seizures Son Suicide Depression Other Cancer Surgical History History of tonsillectomy History of oophorectomy History of hysterectomy History of shoulder surgery Stented coronary artery (01/10/19) Social History housing: [...] ROS ROS ED Constitutional Constitutional ED: Denies chills, fever(s) or sweats Eyes Eyes: Denies blurry vision or change in vision ENT ENT ED: Denies sore throat Cardiovascular Cardiovascular: Reports chest pain; Denies palpitations or racing heartbeat Respiratory/Chest Respiratory/Chest: Reports cough; Denies dyspnea Gastrointestinal Gastrointestinal: Denies abdominal pain, diarrhea, nausea or vomiting Musculoskeletal Musculoskeletal: Reports back pain Integumentary Denies rash Neurologic Neurologic: Denies headache(s) Hematologic/Lymphatic Hematologic/Lymphatic: Denies easy bleeding or easy bruising EXAM Physical Exam Const Vital Signs: 12/28/24 05:19 12/28/24 05:28 12/28/24 06:18 Temperature 98.6 F Temperature Source Oral Pulse Rate 88 83 76 Respiratory Rate 16 20 H 18 Blood Pressure 225/106 H 206/97 H 180/98 H Blood Pressure Mean 145 133 125 Pulse Ox 97 97 95 Oxygen Delivery Method Room Air Room Air Room Air 12/28/24 06:32 12/28/24 07:00 Temperature Temperature Source Pulse Rate 71 71 Respiratory Rate 20 H 20 H Blood Pressure 188/86 H 193/100 H Blood Pressure Mean 120 131 Pulse Ox 94 93 Oxygen Delivery Method Room Air Room Air Positive well nourished and well developed General Appearance ED: well developed; Negative for pallor HEENT HEENT Narrative: Normocephalic atraumatic Eyes PERRL and EOMs intact bilaterally General Eye ED: Negative for scleral icterus Neck supple and no JVD Chest Wall Chest Narrative: There is reproducible pain with palpation of the mid sternum to right anterior chest wall without bony deformity or crepitance However patient reports this pain is different than what she was experiencing athome Resp normal respiratory effort Resp Narrative: Breath sounds are diminished throughout with diffuse expiratory wheeze and rhonchi in the bilateral bases consistent with history of COPD No signs of respiratory distress however Cardio regular rate and regular rhythm Rate: other Other Details: Heart is regular rate and rhythm without murmurs rubsor gallops Radial and carotid pulses are equal and symmetric There is a left-sided carotid bruit noted GI normal to inspection, nondistended, normoactive bowel sounds, non-tender, non-distended and no masses GI Narrative: No voluntary guarding or rigidity or pulsatile mass Negative Joseph sign Auscultation: normoactive bowel sounds Palpation: soft Back/Spine Back/Spine Narrative: No bony deformity or step-off of the thoracic or lumbar spine no midline tenderness to palpation Extremity normal to inspection Extremity Narrative: No asymmetric edema no pitting edema negative Homans' sign bilaterally Neuro oriented x3, CN's II-XII intact bilaterally and no sensory deficits noted Sensorium / Orientation: alert Motor Exam: strength 5/5 throughout Psych mental status grossly normal Skin no rashes or lesions noted and no wounds General Skin Exam: Negative for jaundice or pallor MDM MDM MDM Narrative Medical decision making narrative: Patient arrived to the ER hypertensive but states that this is her baseline blood pressure. She reported mid to right sided chest discomfort as well as pain within the upper back between the shoulder blade. There is no associated nausea vomiting or diaphoresis the patient does have multiple risk factors for coronary artery disease and with concern for acute coronary syndrome a basic cardiac workup was obtained. With patient's history of COPD she could also havepneumonia or COPD exacerbation driving her symptoms or potentially a PE or dissection. Secondary to this basic blood work was obtained with chest x-ray and a D-dimer. D-dimer is 0.53 and based on the patient's age of 69 the value should be above 0.67/670 to be positive and therefore concern for PE or dissection is low. Chest x-ray revealed chronic findings consistent with COPD but no acute changes. The patient's EKG is sinus rhythm without ischemia or STEMI changes. The initial troponin however is elevated at 102 which would indicate that the patient's symptoms are indeed related to cardiac ischemia. Onreevaluation the patient is resting comfortably she has had mild improvement of her hypertension and she reports that her pain is no longer present. I discussed with patient because of her history of coronary artery disease and previous stent placement and now elevation to her troponin that she should be admitted to the hospital so that she can undergo further cardiac testing such asstress test echo and/or heart cath and her troponins can be trended. The patient states that she is not having pain any longer and is afraid to be admitted to the hospital as she does have responsibilities at home. At this time we will wait until her delta troponin results so that she has more information to make a proper decision regarding admission. As the patient's delta troponin as well as basic metabolic profile and BNP are still pending she will be signed out to the day physician Dr. Walls. He was informed of the patient's initial desire to not stay in the hospital. Because of this I did fill out a left AGAINST MEDICAL ADVICE form. I did go over the risk factors with the patient such as permanent cardiac damage disability and . The patient states that she understands the risks as she has had heart attacks in the past and is willing to accept them at this time. History & Record Review Discussion w/independent historian: Patient and Significant other Lab Data Attestation: I reviewed the patient's lab results. Labs: Laboratory Results - last 24 hr 12/28/24 05:22 WBC 12.7 H RBC 5.05 Hgb 14.6 Hct 44.3 MCV 87.7 MCH 28.9 MCHC 33.0 RDW Std Deviation 44.6 H RDW Coeff of Joleen 13.9 Plt Count 344 MPV 10.4 Immature Gran % (Auto) 0.400 Neut % (Auto) 71.1 H Lymph % (Auto) 22.2 [place] % (Auto) 4.8 Eos % (Auto) 0.9 Baso % (Auto) 0.6 Absolute Neuts (auto) 9.0 H Absolute Lymphs (auto) 2.81 Nucleated RBC % 0 D-Dimer Quant (PE/DVT) 0.53 H* Troponin T High Sens 102 H* Radiography Diagnostic Testing: Clinical Impression(s) from Imaging Studies Chest X-Ray 12/28/24 06:15 IMPRESSION: No evidence for acute abnormality. Reading Location: [place] [address] Chest x-ray as interpreted by the emergency medicine physician reveals no acute infiltrate pneumothorax or pleural effusion or widening of the mediastinum Discharge Plan Triage Chief Complaint: Chest Pain ED Provider: Gonzalo Hurst Dx/Rx/DC Orders Clinical Impression: Non-ST elevated myocardial infarction (non-STEMI), COPD (chronic obstructive pulmonary disease), Malignant hypertension, Coronary artery disease, Hyperlipidemia Prescriptions: No Action Prolia 60 mg/mL syringe 60 mg subcut [id number] Qty: 1 1RF atorvastatin 80 mg tablet 80 mg PO [...] (Reason: Sob &/Or Wheezing) Qty: 8.5 0RF Trelegy Ellipta 100-62.5-25 mcg blister with device 1 inh inhalation Q24H 90 Days Qty: 60 2RF pramipexole 1.5 mg tablet 1.5 mg PO QHS Qty: 30 1RF Primary Care Provider: Leonidas Traore Referrals: Leonidas Traore MD [Primary Care Provider] - Print Language: Uzbek What to do if you have Problems For any increased pain, shortness of breath, bleeding, nausea or vomiting, chestpain, or any unexpected problems, contact your Primary Care Provider. Call Cell Therapy ([phone]) or report to the closest Emergency Room. Call 911 if necessary. 12/28/24 0746 <Electronically signed by Gonzalo Hurst DO> Cosigner Signature (if applicable): CC: Dr. Leonidas Traore MD ~ Signed [facility] Work Phone: [phone] Consult note [facility] Medical Records Department [address] [place] [address] Consultation - Cardiology 12/28/24 1039 MR#: [id number] Acct: [id number] Name: GIOVANNI LOMAX Rep #:[id number] : 1955 69 From: Alonzo Blackburn MD PCP: Dr. Leonidas Traore MD Status:A DM IN Location: [place] [id number] Assessment & Plan Assessment/Plan (1) Non-ST elevated myocardial infarction (non-STEMI): PLAN: Patient's presenting complaints are very similar if not identical to what she presented with prior to her stenting procedure. The patient's ECG does not show any acute ischemic changes althoughshe is pain-free at the time it was performed. Her enzymes are mildly positive at 105 and 115. Her blood pressure was significantly elevated in the 220 range when she first presented it is now down to 180. She did not get relief with sublingual nitro in her home environment although were not certain of the age of her nitro pills. Given the patient's known coronary disease status post stenting of the right coronary artery on 2 separate occasions latest was in 2019. Would recommend thepatient proceed with left heart catheterization to definitively rule out progressive coronary artery disease. The patient does continue to smoke her blood pressure has been consistently elevated and difficult to control and we donot know her cholesterol level. She is on intensive statin therapy. She is also on Plavix and aspirin. The cardiac catheterization procedure risk/benefit and alternatives were explained to the patient in detail she voiced understanding and agrees to proceed. The patient is not allergic to iodine. She has been on her Plavix andaspirin. (2) COPD (chronic obstructive pulmonary disease): QUALIFIERS: COPD type: unspecified COPD Qualified Code(s): J44.9 - Chronic obstructive pulmonary disease, unspecified PLAN: Patient carries a history of COPD and has been followed by the pulmonary department here at [facility] in the past. The patient has not been seen in the [facility] since 2022. PLAN: Plan 1. Recommend urgent left heart catheterization. 2. Further recommendations pending the outcome of the catheterization. HPI Consult Data Date of Consult: 12/28/24 HPI Narrative Reason for Consultation: Chest pain and known coronary artery disease HPI Narrative: GIOVANNI LOMAX, is a 69 F who presents with a history of chest discomfort radiating up into her shoulders that started last evening and reminds her of thesymptoms she had prior to her stenting procedure. The patient's right coronary has been stented twice. The last time was January 2019. Her mid right coronary was stented and 5 minutes after completing the case her proximal right coronary was spontaneously occluded and was reintervened upon with a second stent. The patient's symptoms were very similar to what she is experiencing in her homethat led up to her coming to the ER today. Her ECG is normal however her troponins are positive at 105 up to 115. The patient does have a history of dyspnea on exertion which is chronic and she continues to smoke. Patient also has a history of significant hypertension her blood pressure was 220 when she arrived in theemergency department is now down to 180. We are instituting IV nitroglycerin to better control her blood pressure she is pain-free at this point in time. [facility] Medical History (Updated 12/28/24 @ 10:[address] Alonzo Blackburn MD) Carotid artery disease Urinary frequency History of TIA (transient ischemic attack) Nausea Chronic left hip pain Left shoulder pain Anxiety Smoker Myocardial infarct Health care maintenance Colon cancer screening Flu vaccine need Patient noncompliance Tobacco abuse Anxiety and depression Left hand pain History of fracture of clavicle Fracture Depression Chronic pain COPD (chronic obstructive pulmonary disease) Osteoporosis Pre-op chest exam Hyperlipidemia Atherosclerotic heart disease of [place] coronary artery without angina pectoris ST elevation myocardial infarction (STEMI) Hypertension Home Medications ?Medication ?Instructions ?Recorded ?Last Taken ?Type clopidogrel 75 mg tablet (Plavix) 75 mg PO DAILY antip latelet #90 04/29/23 Unknown Rx tabs hydrochlorothiazide 25 mg tablet 25 mg PO DAILY BP #90 tabs 04/29/23 Unknown Rx losartan 100 mg tablet 100 mg PO DAILY dose increas e (BP) 04/29/23 Unknown Rx #90 tabs metoprolol tartrate 25 mg tablet 25 mg PO BID BP #180 tabs 04/29/23 Unknown Rx nitroglycerin 0.4 mg sublingual 0.4 mg sublingual Q5M PRN Chest 04/29/23 Unknown Rx tablet Pain #25 tabs amlodipine 10 mg tablet 10 mg PO DAILY BP #90 tabs 1 07/30/22 Unknown Rx aspirin 81 mg tablet,delayed 81 mg PO DAILY@0800 90 da ys #90 11/11/23 Unknown Rx release tabs atorvastatin 80 mg tablet 80 mg PO QHS 90 days #90 tab s 11/11/23 Unknown Rx denosumab 60 mg/mL subcutaneous 60 mg subcut [id number] #1 mL 12/12/23 Unknown Rx syringe (Prolia) albuterol sulfate 90 mcg/actuation 1 - 2 puff inhalati on Q6H PRN PRN 02/29/24 Unknown Rx aerosol inhaler Sob &/Or Wheezing #8.5 grams fluticasone fur. 100 mcg-umeclid 1 inh inhalation Q24H 3 months #60 09/25/24 Unknown Rx 62.5 mcg-vilant 25 mcg ea inhalat.powder (Trelegy Ellipta) pramipexole 1.5 mg tablet 1.5 mg PO QHS #30 tabs 10/02 Unknown Rx Allergy/AdvReac Type Severity Reaction Status Date / Time No Known Allergies Allergy Verified 12/28/24 05:24 Family History Father , 52 Myocardial infarction Heart disease Hyperlipemia Brother Myocardial infarction CAD (coronary artery disease) CABG and stents Mother Arthritis Depression Osteoporosis Seizures Son Suicide Depression Other Cancer Surgical History History of tonsillectomy History of oophorectomy History of hysterectomy History of shoulder surgery Stented coronary artery (01/10/19) Social History housing: house Smoking Status: Current every day smoker tobacco type: cigarettes Tobacco: How many years used: 50 alcohol intake: current alcohol intake frequency: holidays/special occasions only Alcohol type: wine substance use type: marijuana caffeine: Yes Type: coffee Number of servings: 3 what type of physical activity do you participate in: none ROS Constitutional Constitutional: Reports as per HPI Eyes Eyes: Reports systems reviewed and no addt'l complaints, except as documented ENT HEENT: Reports systems reviewed and no addt'l complaints, except as documented Cardiovascular Cardiovascular: Reports as per HPI Respiratory/Chest Respiratory/Chest: Reports as per HPI Gastrointestinal Gastrointestinal: Reports systems reviewed and no addt'l complaints, except as documented Genitourinary Genitourinary: Reports systems reviewed and no addt'l complaints, except as documented Musculoskeletal Musculoskeletal: Reports systems reviewed and no addt'l complaints, except as documented Integumentary Integumentary: Reports systems reviewed and no addt'l complaints, except as documented Neurologic Neurologic: Reports systems reviewed and no addt'l complaints, except as documented Psychiatric Psychiatric: Reports systems reviewed and no addt'l complaints, except as documented Endocrine Endocrinology: Reports systems reviewed and no addt'l complaints, except as documented Hematologic/Lymphatic Hematologic/Lymphatic: Reports systems reviewed and no addt'l complaints, exceptas documented Allergic/Immunologic Allergic/Immunologic: Reports systems reviewed and no addt'l complaints, except as documented Physical Exam Const alert and oriented x3 HEENT normocephalic Eyes EOMs intact bilaterally Neck no JVD and no carotid bruits Chest inspection of chest normal Resp normal respiratory effort and clear to auscultation bilaterally Cardio Rate: regular rate Rhythm: regular rhythm Heart Sounds: S1 normal and S2 normal; Negative for click, gallop or murmur Peripheral Pulses: radial pulses present bilateral 2+ Extremity no pedal edema Skin no rashes or lesions noted Neuro Neuro Narrative: Alert and oriented x 3 Psych mental status grossly normal Risk Stratification Risk Stratification Applicable: Yes Age >/= 65: Yes >/= 3 CAD Risk Factors (HTN, HLD, DM, family hx of CAD, or current smoker): Yes Aspirin Use in the Past 7 Days: Yes Severe Angina (>/= episodes in 24 hours): Yes EKG ST Changes >/= 0.5mm: No Positive Cardiac Marker: Yes DEMOND Risk Stratification Score: 5 DEMOND % Risk: 25% Risk Charges/Coding Visit Charges Inpatient E&M: 66375 Init Hosp L2 Objective Data Vital Signs: Vital Signs Temp Pulse Resp BP Pulse Ox O2 Del Method 98.2 F 78 19 H 189/103 H 95 Room Air 12/28/24 09:36 12/28/24 09:36 12/28/24 09:36 12/28/24 09:36 12/28/24 09:36 12/28/24 09:36 Oxygen Delivery Method Room Air Weight: 189 lb 6.033 oz Body Mass Index (BMI) 32.5 Lab / Micro Data Attestation: I reviewed the patient's lab results. 12/28/24 05:22 12/28/24 05:22 Labs: Laboratory Results - last 24 hr 12/28/24 05:22: WBC 12.7 H, RBC 5.05, Hgb 14.6, Hct 44.3, MCV 87.7, MCH 28.9, MCHC 33.0, RDW Std Deviation 44.6 H, RDW Coeff of Joleen 13.9, Plt Count 344, MPV 10.4, Immature Gran % (Auto) 0.400, Neut %(Auto) 71.1 H, Lymph % (Auto) 22.2, [place] % (Auto) 4.8, Eos % (Auto) 0.9, Baso % (Auto) 0.6, Absolute Neuts (auto) 9.0 H, Absolute Lymphs (auto) 2.81, Nucleated RBC % 0, PT 12.8, INR 0.9, APTT 28.6, D-Dimer Quant (PE/DVT) 0.53 H*, Sodium 137, Potassium 4.1, Chloride 99, Carbon Dioxide 22.1, Anion Gap 16 H, BUN 18, Creatinine 0.71, Estim Creat Clear Calc 72.37, Est GFR (MDRD) Non-Af 94, BUN/Creatinine Ratio 25.4 H, Glucose 131 H, Calcium 8.9, Total Bilirubin 0.38, Direct Bilirubin 0.15, AST 20, ALT 16, Alkaline Phosphatase 68, Troponin T High Sens 102 H*, NT pro BNP II 174, Total Protein 7.7, Albumin 4.1, Globulin 3.6, Lipase 29 12/28/24 08:20: Troponin T Hi Sens 2 Hr 116 H* Rhythm Strip Rhythm Strip: Sinus Rhythm Rate: 80 Cardiology Labs/Tests 12/28/24 05:22: WBC 12.7 H, RBC 5.05, Hgb 14.6, Hct 44.3, MCV 87.7, MCH 28.9, MCHC 33.0, Plt Count 344, MPV 10.4, Immature Gran % (Auto) 0.400, Neut % (Auto) 71.1 H, Lymph % (Auto) 22.2, [place] % (Auto) 4.8, Eos % (Auto) 0.9, Baso % (Auto) 0.6, Absolute Neuts (auto) 9.0 H, Nucleated RBC % 0, PT 12.8,INR 0.9, APTT 28.6, D-Dimer Quant (PE/DVT) 0.53 H*, Sodium 137, Potassium 4.1, Chloride 99, Carbon D ioxide 22.1, Anion Gap 16 H, BUN 18, Creatinine 0.71, Est GFR (MDRD) Non-Af 94, BUN/Creatinine Ratio 25.4 H, Glucose 131 H, Calcium 8.9, Total Bilirubin 0.38, Direct Bilirubin 0.15 Rhythm: EKG: ECHO: Stress Test: Cardiac Cath: PCI: CT Surgery: Holter monitor: EPS: PPM: CXR: Chest CT Scan: Radiography Diagnostic Testing: Radiology Impression Chest X-Ray 12/28/24 06:15 IMPRESSION: No evidence for acute abnormality. Reading Location: [place] [address] 12/28/24 1055 Cosigner Signature (if applicable): CC: Dr. Leonidas Traore MD~ Signed [facility]06-20-2025 History and physical note [facility] Medical Records Department [address] [place] [id number] H&P Exam - Hospitalist 12/28/24 1009 MR#: [id number] Acct: [id number] Name: GIOVANNI LOMAX Rep #:[id number] : 1955 69 From: Temi Banda MD PCP: Dr. Leonidas Traore MD Status:R EG ER Location: ED HPI - General General Date of Admission: 12/28/24 Date of Service: 12/28/24 Chief Complaint: Chest pain HPI Narrative GIOVANNI LOMAX, is a 69 F with a history of coronary artery disease with 2 previous stents, hypertension, COPD, tobacco use who presented [facility] ED 12/27/2024 due to chest pain. Inthe ED patient did initially have ablood pressure of 225/106 with downtrend into 180s, heart rate of 88, respiratory rate 16 and 97% on room air. EKG with no overt ischemic changes butinitial troponin 102 with repeat of 116, patient placed on heparin drip and hospitalist contacted for admission. Patient evaluated at bedside and reports she had been in her usual health until last night when she had some nausea, she went to bed and woke up with burning in the center of her chest that radiated between her shoulder blades. The pain in her back was similar to previous heartattacks prompting her tocome to the ED. Patient currently has a little bit of a headache but reports not presently having the pain in the front of her chest or nausea. Denies any other new or acute complaints [facility] Medical History Carotid artery disease Urinary frequency History of TIA (transient ischemic attack) Nausea Chronic left hip pain Left shoulder pain Anxiety Smoker ICD (implantable cardioverter-defibrillator) in place Myocardial infarct Health care maintenance Colon cancer screening Flu vaccine need Patient noncompliance Tobacco abuse Anxiety and depression Left hand pain History of fracture of clavicle Fracture Depression Chronic pain COPD (chronic obstructive pulmonary disease) Osteoporosis Pre-op chest exam Hyperlipidemia Atherosclerotic heart disease of [place] coronary artery without angina pectoris ST elevation myocardial infarction (STEMI) Hypertension Home Medications ?Medication ?Instructions ?Recorded ?Last Taken ?Type clopidogrel 75 mg tablet (Plavix) 75 mg PO DAILY antip latelet #90 04/29/23 Unknown Rx tabs hydrochlorothiazide 25 mg tablet 25 mg PO DAILY BP #90 tabs 04/29/23 Unknown Rx losartan 100 mg tablet 100 mg PO DAILY dose increas e (BP) 04/29/23 Unknown Rx #90 tabs metoprolol tartrate 25 mg tablet 25 mg PO BID BP #180 tabs 04/29/23 Unknown Rx nitroglycerin 0.4 mg sublingual 0.4 mg sublingual Q5M PRN Chest 04/29/23 Unknown Rx tablet Pain #25 tabs amlodipine 10 mg tablet 10 mg PO DAILY BP #90 tabs 1 07/30/22 Unknown Rx aspirin 81 mg tablet,delayed 81 mg PO DAILY@0800 90 da ys #90 11/11/23 Unknown Rx release tabs atorvastatin 80 mg tablet 80 mg PO QHS 90 days #90 tab s 11/11/23 Unknown Rx denosumab 60 mg/mL subcutaneous 60 mg subcut [id number] #1 mL 12/12/23 Unknown Rx syringe (Prolia) albuterol sulfate 90 mcg/actuation 1 - 2 puff inhalati on Q6H PRN PRN 02/29/24 Unknown Rx aerosol inhaler Sob &/Or Wheezing #8.5 grams fluticasone fur. 100 mcg-umeclid 1 inh inhalation Q24H 3 months #60 09/25/24 Unknown Rx 62.5 mcg-vilant 25 mcg ea inhalat.powder (Trelegy Ellipta) pramipexole 1.5 mg tablet 1.5 mg PO QHS #30 tabs 10/02 Unknown Rx Allergy/AdvReac Type Severity Reaction Status Date / Time No Known Allergies Allergy Verified 12/28/24 05:24 Family History Father , 52 Myocardial infarction Heart disease Hyperlipemia Brother Myocardial infarction CAD (coronary artery disease) CABG and stents Mother Arthritis Depression Osteoporosis Seizures Son Suicide Depression Other Cancer Surgical History History of tonsillectomy History of oophorectomy History of hysterectomy History of shoulder surgery Stented coronary artery (01/10/19) Social History housing: house Smoking Status: Current every day smoker tobacco type: cigarettes Tobacco: How many years used: 50 alcohol intake: current alcohol intake frequency: holidays/special occasions only Alcohol type: wine substance use type: marijuana caffeine: Yes Type: coffee Number of servings: 3 what type of physical activity do you participate in: none ROS ROS Narrative General: Denies fever/chills HENT: Little bit of a headache, denies stuffy nose, denies sore throat EYES: Denies changes in vision Resp: Denies any new cough, does have some baseline shortness of breath but thisis unchanged Cardiac: Denies chest pain currently GI: Denies abdominal pain, denies changes in bowel, denies nausea/vomiting currently : Denies changes in urination Extremity: Denies swelling MSK: Denies weakness Neuro: Denies any numbness/tingling Heme: Denies any bleeding or bruising Skin: Denies rashes Psychiatric: No complaints voiced Vital Signs Vital Signs Vital Signs: 12/28/24 05:19 12/28/24 05:28 12/28/24 06:18 Temperature 98.6 F Temperature Source Oral Pulse Rate 88 83 76 Respiratory Rate 16 20 H 18 Blood Pressure 225/106 H 206/97 H 180/98 H Blood Pressure Mean 145 133 125 Pulse Ox 97 97 95 Oxygen Delivery Method Room Air Room Air Room Air 12/28/24 06:32 12/28/24 07:00 12/28/24 07:00 Temperature Temperature Source Pulse Rate 71 71 72 Respiratory Rate 20 H 20 H 20 H Blood Pressure 188/86 H 193/100 H 193/100 H Blood Pressure Mean 120 131 128 Pulse Ox 94 93 94 Oxygen Delivery Method Room Air Room Air 12/28/24 07:15 12/28/24 08:00 12/28/24 08:41 Temperature Temperature Source Pulse Rate 77 85 Respiratory Rate 15 18 Blood Pressure 188/96 H 190/99 H 190/99 H Blood Pressure Mean 122 129 127 Pulse Ox 95 96 Oxygen Delivery Method Room Air 12/28/24 08:45 12/28/24 09:00 12/28/24 09:33 Temperature 98.2 F Temperature Source Pulse Rate 74 72 79 Respiratory Rate 20 H 19 H 20 H Blood Pressure 195/96 H 185/92 H 189/103 H Blood Pressure Mean 123 116 131 Pulse Ox 95 95 96 Oxygen Delivery Method 12/28/24 09:36 Temperature 98.2 F Temperature Source Oral Pulse Rate 78 Respiratory Rate 19 H Blood Pressure 189/103 H Blood Pressure Mean 131 Pulse Ox 95 Oxygen Delivery Method Room Air Weight Weight: 85.9 kg Body Mass Index (BMI) 32.5 Physical Exam Narrative General: Alert, oriented, no apparent distress HEENT: Atraumatic, normocephalic Eyes: Anicteric, normal conjunctiva, extraocular movements grossly intact Neck: Supple Respiratory: Scattered wheezes, normal respiratory effort Cardiovascular: Regular rate and rhythm GI: Soft, nontender, nondistended Extremities: No edema Musculoskeletal: Moving all extremities Neuro: No overt focal neurological deficits Skin: No rashes appreciated Psych: Cooperative Results Lab / Micro Data 12/28/24 05:22 12/28/24 05:22 Labs: Laboratory Results - last 24 hr 12/28/24 05:22: WBC 12.7 H, RBC 5.05, Hgb 14.6, Hct 44.3, MCV 87.7, MCH 28.9, MCHC 33.0, RDW Std Deviation 44.6 H, RDW Coeff of Joleen 13.9, Plt Count 344, MPV 10.4, Immature Gran % (Auto) 0.400, Neut %(Auto) 71.1 H, Lymph % (Auto) 22.2, [place] % (Auto) 4.8, Eos % (Auto) 0.9, Baso % (Auto) 0.6, Absolute Neuts (auto) 9.0 H, Absolute Lymphs (auto) 2.81, Nucleated RBC % 0, PT 12.8, INR 0.9, APTT 28.6, D-Dimer Quant (PE/DVT) 0.53 H*, Sodium 137, Potassium 4.1, Chloride 99, Carbon Dioxide 22.1, Anion Gap 16 H, BUN 18, Creatinine 0.71, Estim Creat Clear Calc 72.37, Est GFR (MDRD) Non-Af 94, BUN/Creatinine Ratio 25.4 H, Glucose 131 H, Calcium 8.9, Total Bilirubin 0.38, Direct Bilirubin 0.15, AST 20, ALT 16, Alkaline Phosphatase 68, Troponin T High Sens 102 H*, NT pro BNP II 174, Total Protein 7.7, Albumin 4.1, Globulin 3.6, Lipase 29 12/28/24 08:20: Troponin T Hi Sens 2 Hr 116 H* Imaging Radiology Impression Chest X-Ray 12/28/24 06:15 IMPRESSION: No evidence for acute abnormality. Reading [facility] Assessment & Plan Assessment/Plan (1) Chest pain: PLAN: Plan # NSTEMI unclear subtype - Patient presented with burning chest pain rating to her back with the back pain similar to previous MIs concerning that this may be a type I NSTEMI - No EKG changes but initial troponin 102 with increased to 116 - Trend troponins - Continue heparin drip - Cardiology consulted, will keep patient n.p.o. as she may need heart catheterization - Patient has aspirin and Plavix on home medication list as well as metoprolol, will continue - Echo ordered # Hypertensive urgency versus emergency - If cardiac workup otherwise unrevealing may be that patient's elevated troponins were due to her significantly high blood pressure however given her concerning signs and symptoms consistent with a previous ID requiring stenting there is concern this could be a type I ID - Will continue home medications and add as needed -May ultimately need further medication adjustments if patient remains hypertensive - Cardiology consulted #Hx COPD -Continue home inhalers -Incentive spirometer #Tobacco use -Advise cessation -Nicotine replacement available if desired #DVT ppx: Presently on heparin kate Banda MD Charges/Coding Visit Charges Inpatient E&M: 76799 Init Hosp L2 12/28/24 1032 Cosigner Signature (if applicable): CC: Dr. Leonidas Traore MD; Dr. Temi Banda MD~ Signed [facility]06-20-2025 Discharge summary [facility] Medical Records Department [address] [place] [address] Emergency Department Summary 12/28/24 MR#: [id number] Acct: [id number] Name: GIOVANNI LOMAX Rep #:[id number] : 1955 69 From: Gonzalo Hurst DO PCP: Dr. Leonidas Traore MD Status:R EG ER Location: ED ADDENDUM by Dr. Caleb Walls MD on 12/28/24 at 0939 Patient was endorsed to me by Dr. Gonzalo Hurst to check a second troponin on this patient that was having chest pain with history of coronary artery disease and stenting. She also has history of malignant hypertension. I reviewed her EKG as well as her initial troponin which was elevated at 102. Her repeat troponin is 116. She remains pain-free. Initially, it was reported that she wanted to sign out AGAINST MEDICAL ADVICE. However, after discussion with the patient and her , she is agreeable to staying. I discussed the patient with Dr. Temi Banda and started the patient on heparin. Dr. Blackburn was made aware patient's elevated troponin and admission. Disposition is admitted to thePCU in stable condition. 12/28/24 0939 Cosigner Signature (if applicable): cc: Dr. Leonidas Traore MD ~* Signed HPI History of Present Illness Chief Complaint: Chest Pain Informant: patient and spouse/S.O. Narrative Narrative: Patient is a 69-year-old female with past medical history COPD coronary artery disease 2 previous STEMI's with last stent placement in 2019 and malignant hypertension. She states that despite taking her medication her blood pressure is typically 200/100. She states that last night she went to bed normally and then awoke with a vague discomfort in her mid to right sided chest that she alsofelt in between her shoulder blades. She states there was no associated nausea vomiting or diaphoresis. She reports her shortness of breath is at baseline. She states that the symptoms were similar to her previous ID but also different. She reports she took aspirin and nitro at home without symptom improvement but as she had concerned that the symptoms were cardiac in nature she presents for evaluation [facility] Medical History Carotid artery disease Urinary frequency History of TIA (transient ischemic attack) Nausea Chronic left hip pain Left shoulder pain Anxiety Smoker ICD (implantable cardioverter-defibrillator) in place Myocardial infarct Health care maintenance Colon cancer screening Flu vaccine need Patient noncompliance Tobacco abuse Anxiety and depression Left hand pain History of fracture of clavicle Fracture Depression Chronic pain COPD (chronic obstructive pulmonary disease) Osteoporosis Pre-op chest exam Hyperlipidemia Atherosclerotic heart disease of [place] coronary artery without angina pectoris ST elevation myocardial infarction (STEMI) Hypertension Home Medications ?Medication ?Instructions ?Recorded ?Last Taken ?Type clopidogrel 75 mg tablet (Plavix) 75 mg PO DAILY antip latelet #90 04/29/23 Unknown Rx tabs hydrochlorothiazide 25 mg tablet 25 mg PO DAILY BP #90 tabs 04/29/23 Unknown Rx losartan 100 mg tablet 100 mg PO DAILY dose increas e (BP) 04/29/23 Unknown Rx #90 tabs metoprolol tartrate 25 mg tablet 25 mg PO BID BP #180 tabs 04/29/23 Unknown Rx nitroglycerin 0.4 mg sublingual 0.4 mg sublingual Q5M PRN Chest 04/29/23 Unknown Rx tablet Pain #25 tabs amlodipine 10 mg tablet 10 mg PO DAILY BP #90 tabs 1 07/30/22 Unknown Rx aspirin 81 mg tablet,delayed 81 mg PO DAILY@0800 90 da ys #90 11/11/23 Unknown Rx release tabs atorvastatin 80 mg tablet 80 mg PO QHS 90 days #90 tab s 11/11/23 Unknown Rx denosumab 60 mg/mL subcutaneous 60 mg subcut [id number] #1 mL 12/12/23 Unknown Rx syringe (Prolia) albuterol sulfate 90 mcg/actuation 1 - 2 puff inhalati on Q6H PRN PRN 02/29/24 Unknown Rx aerosol inhaler Sob &/Or Wheezing #8.5 grams fluticasone fur. 100 mcg-umeclid 1 inh inhalation Q24H 3 months #60 09/25/24 Unknown Rx 62.5 mcg-vilant 25 mcg ea inhalat.powder (Trelegy Ellipta) pramipexole 1.5 mg tablet 1.5 mg PO QHS #30 tabs 10/02 Unknown Rx Allergy/AdvReac Type Severity Reaction Status Date / Time No Known Allergies Allergy Verified 12/28/24 05:24 Family History Father , 52 Myocardial infarction Heart disease Hyperlipemia Brother Myocardial infarction CAD (coronary artery disease) CABG and stents Mother Arthritis Depression Osteoporosis Seizures Son Suicide Depression Other Cancer Surgical History History of tonsillectomy History of oophorectomy History of hysterectomy History of shoulder surgery Stented coronary artery (01/10/19) Social History housing: [...] ROS ROS ED Constitutional Constitutional ED: Denies chills, fever(s) or sweats Eyes Eyes: Denies blurry vision or change in vision ENT ENT ED: Denies sore throat Cardiovascular Cardiovascular: Reports chest pain; Denies palpitations or racing heartbeat Respiratory/Chest Respiratory/Chest: Reports cough; Denies dyspnea Gastrointestinal Gastrointestinal: Denies abdominal pain, diarrhea, nausea or vomiting Musculoskeletal Musculoskeletal: Reports back pain Integumentary Denies rash Neurologic Neurologic: Denies headache(s) Hematologic/Lymphatic Hematologic/Lymphatic: Denies easy bleeding or easy bruising EXAM Physical Exam Const Vital Signs: 12/28/24 05:19 12/28/24 05:28 12/28/24 06:18 Temperature 98.6 F Temperature Source Oral Pulse Rate 88 83 76 Respiratory Rate 16 20 H 18 Blood Pressure 225/106 H 206/97 H 180/98 H Blood Pressure Mean 145 133 125 Pulse Ox 97 97 95 Oxygen Delivery Method Room Air Room Air Room Air 12/28/24 06:32 12/28/24 07:00 Temperature Temperature Source Pulse Rate 71 71 Respiratory Rate 20 H 20 H Blood Pressure 188/86 H 193/100 H Blood Pressure Mean 120 131 Pulse Ox 94 93 Oxygen Delivery Method Room Air Room Air Positive well nourished and well developed General Appearance ED: well developed; Negative for pallor HEENT HEENT Narrative: Normocephalic atraumatic Eyes PERRL and EOMs intact bilaterally General Eye ED: Negative for scleral icterus Neck supple and no JVD Chest Wall Chest Narrative: There is reproducible pain with palpation of the mid sternum to right anterior chest wall without bony deformity or crepitance However patient reports this pain is different than what she was experiencing athome Resp normal respiratory effort Resp Narrative: Breath sounds are diminished throughout with diffuse expiratory wheeze and rhonchi in the bilateralbases consistent with history of COPD No signs of respiratory distress however Cardio regular rate and regular rhythm Rate: other Other Details: Heart is regular rate and rhythm without murmurs rubsor gallops Radial and carotid pulses are equal and symmetric There is a left-sided carotid bruit noted GI normal to inspection, nondistended, normoactive bowel sounds, non-tender, non- distended and no masses GI Narrative: No voluntary guarding or rigidity or pulsatile mass Negative Joseph sign Auscultation: normoactive bowel sounds Palpation: soft Back/Spine Back/Spine Narrative: No bony deformity or step-off of the thoracic or lumbar spine no midline tenderness to palpation Extremity normal to inspection Extremity Narrative: No asymmetric edema no pitting edema negative Homans' sign bilaterally Neuro oriented x3, CN's II-XII intact bilaterally and no sensory deficits noted Sensorium / Orientation: alert Motor Exam: strength 5/5 throughout Psych mental status grossly normal Skin no rashes or lesions noted and no wounds General Skin Exam: Negative for jaundice or pallor MDM MDM MDM Narrative Medical decision making narrative: Patient arrived to the ER hypertensive but states that this is her baseline blood pressure. She reported mid to right sided chest discomfort as well as pain within the upper back between the shoulderblade. There is no associated nausea vomiting or diaphoresis the patient does have multiple risk factors for coronary artery disease and with concern for acute coronary syndrome a basic cardiac workup was obtained. With patient's history of COPD she could also havepneumonia or COPD exacerbation driving her symptoms or potentially a PE or dissection. Secondary to this basic blood work was obtainedwith chest x-ray and a D-dimer. D-dimer is 0.53 and based on the patient's age of 69 the value should be above 0.67/670 to be positive and therefore concern for PE or dissection is low. Chest x-ray revealed chronic findings consistent with COPD but no acute changes. The patient's EKG is sinus rhythm without ischemia or STEMI changes. The initial troponin however is elevated at 102 which would indicate that the patient's symptoms are indeed related to cardiac ischemia. Onreevaluation the patientis resting comfortably she has had mild improvement of her hypertension and she reports that her pain is no longer present. I discussed with patient because of her history of coronary artery disease and previous stent placement and now elevation to her troponin that she should be admitted to the hospital so that she can undergo further cardiac testing such asstress test echo and/or heart cath andher troponins can be trended. The patient states that she is not having pain any longer and is afraid to be admitted to the hospital as she does have responsibilities at home. At this time we will wait until her delta troponin results so that she has more information to makea proper decision regarding admission. As the patient's delta troponin as well as basic metabolic profile and BNP are still pending she will be signed out to the day physician Dr. Walls. He was informed of the patient's initial desire to not stay in the hospital. Because of this I did fill out a l eft AGAINST MEDICAL ADVICE form. I did go over the risk factors with the patient such as permanent cardiac damage disability and . The patient states that she understands the risks as she has had heart attacks in the past and is willing to accept them at this time. History & Record Review Discussion w/independent historian: Patient and Significant other Lab Data Attestation: I reviewed the patient's lab results. Labs: Laboratory Results - last 24 hr 12/28/24 05:22 WBC 12.7 H RBC 5.05 Hgb 14.6 Hct 44.3 MCV 87.7 MCH 28.9 MCHC 33.0 RDW Std Deviation 44.6 H RDW Coeff of Joleen 13.9 Plt Count 344 MPV 10.4 Immature Gran % (Auto) 0.400 Neut % (Auto) 71.1 H Lymph % (Auto) 22.2 [place] % (Auto) 4.8 Eos % (Auto) 0.9 Baso % (Auto) 0.6 Absolute Neuts (auto) 9.0 H Absolute Lymphs (auto) 2.81 Nucleated RBC % 0 D-Dimer Quant (PE/DVT) 0.53 H* Troponin T High Sens 102 H* Radiography Diagnostic Testing: Clinical Impression(s) from Imaging Studies Chest X-Ray 12/28/24 06:15 IMPRESSION: No evidence for acute abnormality. Reading Location: [place] [address] Chest x-ray as interpreted by the emergency medicine physician reveals no acute infiltrate pneumothorax or pleural effusion or widening of the mediastinum Discharge Plan Triage Chief Complaint: Chest Pain ED Provider: Gonzalo Hurst Dx/Rx/DC Orders Clinical Impression: Non-ST elevated myocardial infarction (non-STEMI), COPD (chronic obstructive pulmonary disease), Malignant hypertension, Coronary artery disease, Hyperlipidemia Prescriptions: No Action Prolia 60 mg/mL syringe 60 mg subcut [id number] Qty: 1 1RF atorvastatin 80 mg tablet 80 mg PO [...] (Reason: Sob &/Or Wheezing) Qty: 8.5 0RF Trelegy Ellipta 100-62.5-25 mcg blister with device 1 inh inhalation Q24H 90 Days Qty: 60 2RF pramipexole 1.5 mg tablet 1.5 mg PO QHS Qty: 30 1RF Primary Care Provider: Leonidas Traore Referrals: Leonidas Traore MD [Primary Care Provider] - Print Language: Uzbek What to do if you have Problems For any increased pain, shortness of breath, bleeding, nausea or vomiting, chestpain, or any unexpected problems, contact your Primary Care Provider. Call [facility] ([phone]) or report tothe closest Emergency Room. Call 911 if necessary. 12/28/24 0746 Cosigner Signature (if applicable): CC: Dr. Leonidas Traore MD ~ Signed [facility]06-20-2025 Radiology Diagnostic study note [facility] Imaging Services [address] [place] [address] Chest PA and Lateral MR#: [id number] Acct: [id number] Name: GIOVANNI LOMAX Rep #: [id number] : 1955 F 69 From: Chasity Arenas MD PCP: Dr. Leonidas Traore MD Status: R EG ER Study:Chest PA and Lateral Date of Exam: 12/28/24 Exam# [id number] Ordering Dr: Rebecca Hurst DO PROCEDURE: CHEST PA AND LATERAL 12/28/2024 REASON FOR EXAM: CHEST PAIN TECHNIQUE: CHEST PA AND LATERAL COMPARISON: 11/10/2023. FINDINGS: The lungs are expanded. There is no demonstrated parenchymal abnormality. There is no demonstrated pleural abnormality. Enlarged cardiac silhouette. Normal mediastinum and alex. Normal visualized pulmonary arteries. Atheromatous plaques of the visualized aortic arch and descending thoracic aorta. Diffuse spondylosis of the visualized thoracic spine. Normal visualized ribs, clavicles. Degenerative joint disease. There is no demonstrated abnormality of the visualized soft tissue structures ofthe upper abdomen. Unremarkable left humeral metallic plate and screws. RAD/Chest PA and Lateral IMPRESSION: No evidence for acute abnormality. [facility] CC: Dr. 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 [facility]03-05-2025 Evaluation note* Diagnosis Onset Date Resolution Status Admit Date Carotid artery disease chronic [facility] 2024 1:55pm Chest pain acute December 28 10:09am Non-ST elevated myocardial infarction (non-STEMI) acute December 10:09am COPD (chronic obstructive pulmonary disease) chronic December 28 10:09am [facility] Work Phone: 1(411) 538-511203-05-2025 Evaluation note* Diagnosis Onset Date Resolution Status Admit Date Carotid artery disease chronic [facility] 2024 1:55pm Chest pain acute December 28 10:09am Hyperlipidemia acute December 28, 2024 10:09am Non-ST elevated myocardial infarction (non-STEMI) acute December 10:09am COPD (chronic obstructive pulmonary disease) chronic December 28 10:09am Hypertension chronic December 28 10:09am [facility] Work Phone: 1(437) 861-252903-05-2025 Evaluation note* Diagnosis Onset Date Resolution Status Admit Date Carotid artery disease chronic [facility] 2024 1:55pm Chest pain acute December 28 10:09am Hyperlipidemia acute December 28, 2024 10:09am Non-ST elevated myocardial infarction (non-STEMI) acute December 10:09am COPD (chronic obstructive pulmonary disease) chronic December 28 10:09am Hypertension chronic December 28 025 10:09am Hyperlipidemia acute January 03, 2025 12:50pm Atherosclerotic heart diseas e of [place] coronary artery without angina pectoris chronic December 12:50pm Hypertension chronic January 03 025 12:50pm Stented coronary artery December 29, 2024 chronic January 03, 2025 12:50pm [facility] Work Phone: 1(357) 525-156101-29-2025 Evaluation note* Diagnosis Onset Date Resolution Status Admit Date Osteoporosis acute July 1:33pm Carotid artery disease chronic [facility] 2024 1:33pm COPD (chronic obstructive pulmonary disease) chronic August 08, 2024 1:33pm Hypertension chronic July 1:33pm Urinary frequency chronic August 08, 2024 1:33pm Carotid artery disease chronic [facility] 2024 1:55pm [facility] Work Phone: 1(166) 610-452311-26-2024 NoteHNO ID: [id number] Author: ROXANA GARCIA PA Service: ? Author Type: Physician Framing Mechanic Type: Progress Notes Filed: 06/05/2024 14:26 Note Text: This note was created using [employer]. Subjective Giovanni Lomax is a 69 year [...] Onset Alcohol/Drug Mother Heart Father 52 of ID, developed CAD age early 40's Alcohol/Drug Father Coronary Artery Disease Father Hypertension Father Heart Brother CABG age 46, stents and ID's placed since Cancer Maternal Aunt pancreatic Coronary [...] acknowledged understanding of tj (more content not included)...[facility]11-26-2024 History of Present illness Narrative* Roxana Garcia PA - 06/05/2024 1:48 PM EST This note was created using [employer]. Subjective Giovanni Lomax is a 69 year [...] Onset Alcohol/Drug Mother Heart Father 52 of ID, developed CAD age early 40's Alcohol/Drug Father Coronary Artery Disease Father Hypertension Father Heart Brother CABG age 46, stents and ID's placed since Cancer Maternal Aunt pancreatic Coronary [...] ER evaluation. KAILEY Krishnamurthy [facility] History of Present illness Narrative* Joanne Neal MD - 12/20/2023 2:45 PM EDT Images from the original note were not included. [facility] [place] [address] [place] [address] Dept: [phone] Dept Chief Complaint Patient presents with Hip [...] pepper which is often included in the yryb-ueh-gobihok supplements. 2. Physical therapy - formal physical [...] prior to signing but minor errors in rabies inspector may have occurred. documented in this [facility]05-03-2024 Consult note Author Amanda Ugarte [facility] November 11, 2023 11:06am Note Date/Time November 11, 2023 10:54a m [facility] Medical Records Department [address] [place] [address] Consultation - Neurology 11/11/23 1052 MR#: [id number] Acct: [id number] Name: GIOVANNI LOMAX Rep #:[id number] : 1955 68 From: Amanda Ugarte MD PCP: Dr. Leonidas Traore MD Status:A DM CHANTAL Location: [place] [address] Assessment and Plan: Stroke Assessment/Plan GIOVANNI LOMAX [...] smoke. has tried quitting in the past. [facility] Medical History (Updated 11/10/23 @ 16:25 by Linda Morgan) Anxiety Anxiety and depression Atherosclerotic heart disease of [place] coronary artery without angina pectoris Chronic pain [...] mcg/actuation aerosol inhaler (ProAir HFA) 2 inh [id number] PRN shortness of breath or wheezing 11/10/23 [...] and with change in RN caregiver. Freq: [id number] Protocol: Activity Type Activity Date Activity User [...] % (Auto) 59.6, Lymph % (Auto) 32.2, [place] % (Auto) 5.4, Eos % (Auto) 2.0, [...] % (Auto) 49.6, Lymph % (Auto) 36.8, [place] % (Auto) 8.0, Eos % (Auto) 4.3, [...] 10 Mg Tablet PO 10 mg DAILY [facility] Administration Protocol Aspirin 81 mg 11/10/23 16:20 11/11/23 08:22 Aspirin 81 Mg Tab.Chew PO 81 mg BREAKFAST [facility] Administration Atorvastatin Calcium 80 mg 11/10/23 22:00 11/10/23 21:43 Atorvastatin Calcium 80 Mg Tablet PO 80 mg QHS TRUPTI Administration Clopidogrel Bisulfate 75 mg 11/11/23 10:00 11/11/23 08:23 Clopidogrel Bisulfate 75 Mg Tablet PO 75 mg DAILY [facility] Administration Enoxaparin Sodium 40 mg 11/10/23 16:20 11/11/23 08:28 Enoxaparin 40 Mg/0.4 Ml Syringe SC Not Given DAILY [facility] Hydralazine HCl 5 mg 11/10/23 16:20 Hydralazine 20 Mg/Ml Vial IV 11/11/23 16:20 Q30M PRN maintain BP parameters with HR <60 Hydrochlorothiazide 25 mg 11/11/23 10:00 11/11/23 08:22 Hydrochlorothiazide 25 Mg Tablet PO 25 mg DAILY [facility] Administration Protocol Sodium Chloride 250 mls @ 15 mls/hr 11/10/23 16:19 IV .[id number] PRN Additional IVPB Infusion Sodium Chloride 250 mls @ 15 mls/hr 11/10/23 16:19 IV .[id number] PRN Saline Flush Labetalol HCl 20 mg [...] 25 Mg Tablet PO 25 mg BID [facility] Administration Protocol Nitroglycerin 0.4 mg 11/10/23 16:20 [...] applicable): CC: Dr. Leonidas Traore MD~ Signed [facility] Work Phone: 1(901) 346-438205-02-2024 Discharge summary Author Nadja Vizcarra [facility] November 10, 2023 4:52pm Note Date/Time November 10, 2023 2:12pm [facility] Medical Records Department [address] [place] [address] Emergency Department Summary 11/10/23 MR#: [id number] Acct: [id number] Name: GIOVANNI LOMAX Rep #:[id number] : 1955 68 From: Nadja Vizcarra MD PCP: Dr. Leonidas Traore MD Status:A DM CHANTAL Location: [address] History of Present Illness Chief Complaint: Stroke Alert Informant: patient Onset/Context/Timing Onset: Today Narrative Narrative: Patient presents secondary to slurred speech and left arm weakness that started approximately 40 minutes prior to arrival. states symptoms seem to resolve within 10 minutes. Patient states that she had problems using her left arm a couple days ago that lasted just a brief time also. [facility] Medical History Anxiety and depression Atherosclerotic heart disease of [place] coronary artery without angina pectoris Chronic pain [...] stroke alert was initiated. Patient placed on case monitor. EKG obtained to evaluate for cardiac [...] % (Auto) 59.6 Lymph % (Auto) 32.2 [place] % (Auto) 5.4 Eos % (Auto) 2.0 [...] Provider] - Disposition Disposition: Acute Care Hospital [facility] What to do if you have Problems For any increased pain, shortness of breath, bleeding, nausea or vomiting, chestpain, or any unexpected problems, contact your Primary Care Provider. Call [facility] ([phone]) or report to the closest Emergency Room. Call 911 if necessary. 11/10/23 1652 <Electronically signed by Nadja Vizcarra MD> Cosigner Signature (if applicable): CC: Dr. Leonidas Traore MD ~ Signed [facility] Work Phone: 1(546) 546-237005-02-2024 History and physical note Author Rafael Arreaga [facility] November 10, 2023 4:01pm Note Date/Time November 10, 2023 3:28pm [facility] Medical Records Department [address] [place] [address] H&P Exam - Hospitalist 11/10/23 1525 MR#: [id number] Acct: [id number] Name: GIOVANNI LOMAX Rep #:[id number] : 1955 68 From: Rafael Sr PCP: Dr. Leonidas Traore MD Status:A DM [place]ANTAL Location: [place] [address] HPI - General General Date of Admission: [...] EKG all reviewed discussed assessment and plan. [facility] Medical History Anxiety and depression Atherosclerotic heart disease of [place] coronary artery without angina pectoris Chronic pain [...] mcg/actuation aerosol inhaler (ProAir HFA) 2 inh [id number] PRN shortness of breath or wheezing 11/10/23 [...] % (Auto) 59.6, Lymph % (Auto) 32.2, [place]% (Auto) 5.4, Eos % (Auto) 2.0, Baso [...] but currently she is not following any certified mortician. Twelve-lead EKG shows normal sinus rhythm, PACs [...] shock if needed Total time spent in [id number] encounter in discussion of advanced directive 17 minutes. Laboratory Results 11/10/23 14:10: WBC 9.8, RBC 5.20, Hgb 15.3 H, Hct 47.2 H, MCV 90.8, MCH 29.4, MCHC 32.4, RDW Std Deviation 45.4 H, RDW Coeff of Joleen 13.4, Plt Count 331, MPV 9.8, Immature Gran % (Auto) 0.200, Neut % (Auto) 59.6, Lymph % (Auto) 32.2, [place]% (Auto) 5.4, Eos % (Auto) 2.0, Baso [...] cerebral artery. Charges/Coding Visit Charges Inpatient E&M: 75118 Init Hosp L3 Procedures Hospitalists Procedures: 11496 Advncd Care Plan 30 Min 11/10/23 1601 <Electronically signed by Rafeal Arreaga MD> Cosigner Signature (if applicable): CC: Dr. Leonidas Traore MD; Dr. Rafael Arreaga MD~ Signed [facility] Work Phone: 1(680) 728-330707-03-2022 Evaluation note* Diagnosis Onset Date Resolution Status MAGALLANES (dyspnea on exertion) ac koi Atherosclerotic heart diseas e of [place] coronary artery without angina pectoris chronic Hyperlipidemia chronic Hypertension chronic Stented coronary artery January 10, 2019 ch ronic Acute exacerbation of emphysema noneactive MAGALLANES (dyspnea on exertion) ac koi Nicotine dependence, cigarettes, uncomplicated acute Uncontrolled hypertension ac koi [facility] Work Phone: 1(851) 268-747603-31-2022 History of Present illness Narrative* Abran Granados [...] wax. Abran Granados MD [facility] Author Alonzo Blackburn [facility] Note Date/Time December 28, 2024 10:5 5am [facility] Medical Records Department [address] [place] [address] Consultation - Cardiology 12/28/24 1039 MR#: [id number] Acct: [id number] Name: GIOVANNI LOMAX Rep #:[id number] : 1955 69 From: Alonzo Blackburn MD PCP: Dr. Leonidas Traore MD Status:A DM IN Location: [facility] [id number] Assessment & Plan Assessment/Plan (1) Non-ST elevated myocardial infarction (non-STEMI): PLAN: Patient's presenting complaints are very similar if not identical to what she presented with prior to her stenting procedure. The patient's ECG does not show any acute ischemic changes although she is pain-free at the time it was performed. Her enzymes are mildly positive at 105 and 115. Her blood pressure was significantly elevated in the 220 range when she first presented it is now down to 180. She did not get relief with sublingual nitro in her home environment although were not certain of the age of her nitro pills. Given the patient's known coronary disease status post stenting of the right coronary artery on 2 separate occasions latest was in 2018. Would recommend thepatient proceed with left heart catheterization to definitively rule out progressive coronary artery disease. The patient does continue to smoke her blood pressure has been consistently elevated and difficult to control and we donot know her cholesterol level. She is on intensive statin therapy. She is also on Plavix and aspirin. The cardiac catheterization procedure risk/benefit and alternatives were explained to the patient in detail she voiced understanding and agrees to proceed. The patient is not allergic to iodine. She has been on her Plavix andaspirin. (2) COPD (chronic obstructive pulmonary disease): QUALIFIERS: COPD type: unspecified COPD Qualified Code(s): J44.9 - Chronic obstructive pulmonary disease, unspecified PLAN: Patient carries a history of COPD and has been followed by the pulmonary department here at [facility] in the past. The patient has not been seen in the [facility] since 2022. PLAN: Plan 1. Recommend urgent left heart catheterization. 2. Further recommendations pending the outcome of the catheterization. HPI Consult Data Date of Consult: 12/28/24 HPI Narrative Reason for Consultation: Chest pain and known coronary artery disease HPI Narrative: GIOVANNI LOMAX, is a 69 F who presents with a history of chest discomfort radiating up into her shoulders that started last evening and reminds her of thesymptoms she had prior to her stenting procedure. The patient's right coronary has been stented twice. The last time was January 2019. Her mid right coronary was stented and 5 minutes after completing the case her proximal right coronary was spontaneously occluded and was reintervened upon with a second stent. The patient's symptoms were very similar to what she is experiencing in her homethat led up to her coming to the ER today. Her ECG is normal however her troponins are positive at 105 up to 115. The patient does have a history of dyspnea on exertion which is chronic and she continues to smoke. Patient also has a history of significant hypertension her blood pressure was 220 when she arrived in the emergency department is now down to 180. We are instituting IV nitroglycerin to better control her blood pressure she is pain-free at this point in time. [facility] Medical History (Updated 12/28/24 @ 10:[address] Alonzo Blackburn MD) Carotid artery disease Urinary frequency History of TIA (transient ischemic attack) Nausea Chronic left hip pain Left shoulder pain Anxiety Smoker Myocardial infarct Health care maintenance Colon cancer screening Flu vaccine need Patient noncompliance Tobacco abuse Anxiety and depression Left hand pain History of fracture of clavicle Fracture Depression Chronic pain COPD (chronic obstructive pulmonary disease) Osteoporosis Pre-op chest exam Hyperlipidemia Atherosclerotic heart disease of [place] coronary artery without angina pectoris ST elevation myocardial infarction (STEMI) Hypertension Home Medications ?Medication ?Instructions ?Recorded ?Last Taken ?Type clopidogrel 75 mg tablet (Plavix) 75 mg PO DAILY antip latelet #90 04/29/23 Unknown Rx tabs hydrochlorothiazide 25 mg tablet 25 mg PO DAILY BP #90 tabs 04/29/23 Unknown Rx losartan 100 mg tablet 100 mg PO DAILY dose increas e (BP) 04/29/23 Unknown Rx #90 tabs metoprolol tartrate 25 mg tablet 25 mg PO BID BP #180 tabs 04/29/23 Unknown Rx nitroglycerin 0.4 mg sublingual 0.4 mg sublingual Q5M PRN Chest 04/29/23 Unknown Rx tablet Pain #25 tabs amlodipine 10 mg tablet 10 mg PO DAILY BP #90 tabs 1 07/30/22 Unknown Rx aspirin 81 mg tablet,delayed 81 mg PO DAILY@0800 90 da ys #90 11/11/23 Unknown Rx release tabs atorvastatin 80 mg tablet 80 mg PO QHS 90 days #90 tab s 11/11/23 Unknown Rx denosumab 60 mg/mL subcutaneous 60 mg subcut [id number] #1 mL 12/12/23 Unknown Rx syringe (Prolia) albuterol sulfate 90 mcg/actuation 1 - 2 puff inhalati on Q6H PRN PRN 08/21/24 Unknown Rx aerosol inhaler Sob &/Or Wheezing #8.5 grams fluticasone fur. 100 mcg-umeclid 1 inh inhalation Q24H 3 months #60 09/25/24 Unknown Rx 62.5 mcg-vilant 25 mcg ea inhalat.powder (Trelegy Ellipta) pramipexole 1.5 mg tablet 1.5 mg PO QHS #30 tabs 10/02 Unknown Rx Allergy/AdvReac Type Severity Reaction Status Date / Time No Known Allergies Allergy Verified 12/28/24 05:24 Family History Father , 52 Myocardial infarction Heart disease Hyperlipemia Brother Myocardial infarction CAD (coronary artery disease) CABG and stents Mother Arthritis Depression Osteoporosis Seizures Son Suicide Depression Other Cancer Surgical History History of tonsillectomy History of oophorectomy History of hysterectomy History of shoulder surgery Stented coronary artery (01/10/19) Social History housing: house Smoking Status: Current every day smoker tobacco type: cigarettes Tobacco: How many years used: 50 alcohol intake: current alcohol intake frequency: holidays/special occasions only Alcohol type: wine substance use type: marijuana caffeine: Yes Type: coffee Number of servings: 3 what type of physical activity do you participate in: none ROS Constitutional Constitutional: Reports as per HPI Eyes Eyes: Reports systems reviewed and no addt'l complaints, except as documented ENT HEENT: Reports systems reviewed and no addt'l complaints, except as documented Cardiovascular Cardiovascular: Reports as per HPI Respiratory/Chest Respiratory/Chest: Reports as per HPI Gastrointestinal Gastrointestinal: Reports systems reviewed and no addt'l complaints, except as documented Genitourinary Genitourinary: Reports systems reviewed and no addt'l complaints, except as documented Musculoskeletal Musculoskeletal: Reports systems reviewed and no addt'l complaints, except as documented Integumentary Integumentary: Reports systems reviewed and no addt'l complaints, except as documented Neurologic Neurologic: Reports systems reviewed and no addt'l complaints, except as documented Psychiatric Psychiatric: Reports systems reviewed and no addt'l complaints, except as documented Endocrine Endocrinology: Reports systems reviewed and no addt'l complaints, except as documented Hematologic/Lymphatic Hematologic/Lymphatic: Reports systems reviewed and no addt'l complaints, exceptas documented Allergic/Immunologic Allergic/Immunologic: Reports systems reviewed and no addt'l complaints, except as documented Physical Exam Const alert and oriented x3 HEENT normocephalic Eyes EOMs intact bilaterally Neck no JVD and no carotid bruits Chest inspection of chest normal Resp normal respiratory effort and clear to auscultation bilaterally Cardio Rate: regular rate Rhythm: regular rhythm Heart Sounds: S1 normal and S2 normal; Negative for click, gallop or murmur Peripheral Pulses: radial pulses present bilateral 2+ Extremity no pedal edema Skin no rashes or lesions noted Neuro Neuro Narrative: Alert and oriented x 3 Psych mental status grossly normal Risk Stratification Risk Stratification Applicable: Yes Age >/= 65: Yes >/= 3 CAD Risk Factors (HTN, HLD, DM, family hx of CAD, or current smoker): Yes Aspirin Use in the Past 7 Days: Yes Severe Angina (>/= episodes in 24 hours): Yes EKG ST Changes >/= 0.5mm: No Positive Cardiac Marker: Yes DEMOND Risk Stratification Score: 5 DEMOND % Risk: 25% Risk Charges/Coding Visit Charges Inpatient E&M: 82073 Init Hosp L2 Objective Data Vital Signs: Vital Signs Temp Pulse Resp BP Pulse Ox O2 Del Method 98.2 F 78 19 H 189/103 H 95 Room Air 12/28/24 09:36 12/28/24 09:36 12/28/24 09:36 12/28/24 09:36 12/28/24 09:36 12/28/24 09:36 Oxygen Delivery Method Room Air Weight: 189 lb 6.033 oz Body Mass Index (BMI) 32.5 Lab / Micro Data Attestation: I reviewed the patient's lab results. 12/28/24 05:22 12/28/24 05:22 Labs: Laboratory Results - last 24 hr 12/28/24 05:22: WBC 12.7 H, RBC 5.05, Hgb 14.6, Hct 44.3, MCV 87.7, MCH 28.9, MCHC 33.0, RDW Std Deviation 44.6 H, RDW Coeff of Joleen 13.9, Plt Count 344, MPV 10.4, Immature Gran % (Auto) 0.400, Neut % (Auto) 71.1 H, Lymph % (Auto) 22.2, [place] % (Auto) 4.8, Eos % (Auto) 0.9, Baso % (Auto) 0.6, Absolute Neuts (auto) 9.0 H, Absolute Lymphs (auto) 2.81, Nucleated RBC % 0, PT 12.8, INR 0.9, APTT 28.6, D- Dimer Quant (PE/DVT) 0.53 H*, Sodium 137, Potassium 4.1, Chloride 99, Carbon Dioxide 22.1, Anion Gap 16 H, BUN 18, Creatinine 0.71, Estim Creat Clear Calc 72.37, Est GFR (MDRD) Non-Af 94, BUN/Creatinine Ratio 25.4 H, Glucose 131 H, Calcium 8.9, Total Bilirubin 0.38, Direct Bilirubin 0.15, AST 20, ALT 16, Alkaline Phosphatase 68, Troponin T High Sens 102 H*, NT pro BNP II 174, Total Protein 7.7, Albumin 4.1, Globulin 3.6, Lipase 29 12/28/24 08:20: Troponin T Hi Sens 2 Hr 116 H* Rhythm Strip Rhythm Strip: Sinus Rhythm Rate: 80 Cardiology Labs/Tests 12/28/24 05:22: WBC 12.7 H, RBC 5.05, Hgb 14.6, Hct 44.3, MCV 87.7, MCH 28.9, MCHC 33.0, Plt Count 344, MPV 10.4, Immature Gran % (Auto) 0.400, Neut % (Auto) 71.1 H, Lymph % (Auto) 22.2, [place] % (Auto) 4.8, Eos % (Auto) 0.9, Baso % (Auto) 0.6, Absolute Neuts (auto) 9.0 H, Nucleated RBC % 0, PT 12.8, INR 0.9, APTT 28.6, D-Dimer Quant (PE/DVT) 0.53 H*, Sodium 137, Potassium 4.1, Chloride 99, Carbon Dioxide 22.1, Anion Gap 16 H, BUN 18, Creatinine 0.71, Est GFR (MDRD) Non-Af 94, BUN/Creatinine Ratio 25.4 H, Glucose 131 H, Calcium 8.9, Total Bilirubin 0.38, Direct Bilirubin 0.15 Rhythm: EKG: ECHO: Stress Test: Cardiac Cath: PCI: CT Surgery: Holter monitor: EPS: PPM: CXR: Chest CT Scan: Radiography Diagnostic Testing: Radiology Impression Chest X-Ray 12/28/24 06:15 IMPRESSION: No evidence for acute abnormality. Reading Location: [place] [address] 12/28/24 1055 <Electronically signed by Alonzo Blackburn MD> Cosigner Signature (if applicable): CC: Dr. Leonidas Traore MD~ Signed [facility] Work Phone: Discharge summary Author Abhijeet Sky [facility] November 11, 2023 4:14pm Note Date/Time November 11, 2023 4:10pm [facility] Medical Records Department [address] [place] [address] Instructions for Home/Discharge Instructions 11/11/23 1609 MR#: [id number] Acct: [id number] Name: GIOVANNI LOMAX Rep #:[id number] : 1955 68 From: Abhijeet luo DO [...] Acuña; Marylin Smith; Topher Morse; Dilcia Torres; Nito,Eyal;Rafael Arreaga; Guido Denny Discharge Orders/Prescriptions Prescriptions: Continued [...] Traore MD; Dr. Guido Denny MD; Dr. Estre Doss MD; Dr. Bj Rene MD; Dr. David Mobley MD; Dr. Wolf iL DO; Dr. Carly Ceron MD; Dr. Alexander Benavides MD; Dr. Rafael Areraga MD; Dr. Marylin Smith MD; Dr. Topher Morse MD; Dr. Dilcia Torres MD; Nevin Soto DO; Eyal Beauchamp MD ~ Signed [facility] Work Phone: Discharge summary Author Abhijeet Sky [facility] November 11, 2023 5:05pm Note Date/Time November 11, 2023 4:14pm [facility] Medical Records Department [address] [place] [address] Discharge Summary 11/11/23 1614 MR#: [id number] Acct: [id number] Name: GIOVANNI LOMAX Rep #:[id number] : 1955 68 From: Abhijeet Gutierresmakeda valerio YOUSIF PCP: Dr. Leonidas Traore MD Status:A DM [place]ANTAL Location: [place] [address] Providers Date of Admission: 11/10/23 Date of [...] mcg/actuation aerosol inhaler (ProAir HFA) 2 inh [id number] PRN shortness of breath or wheezing 11/10/23 [...] Patient is a 68-year-old female who presented [facility] ED on 11/10/2023 with strokelike [...] History of CAD with inferior STEMI in 2019 ? Had inferior STEMI in January 2019, complicated by acute in-stent restenosis after initial PCI of proximal RCA. Previously followed with Dr. Zheng, now has not seen a certified mortician for a few years. Last echo in [...] % (Auto) 49.6, Lymph % (Auto) 36.8, [place] % (Auto) 8.0, Eos % (Auto) 4.3, [...] Self Care Charges/Coding Visit Charges Inpatient E&M: 96128 Disch Hosp >30min 11/11/23 1704 <Electronically signed by Abhijeet Sky DO> Cosigner Signature (if applicable): CC: Dr. Abhijeet Sky DO; Dr. Leonidas Traore MD~ Signed [facility] Work Phone: Discharge summary Author Gonzalo Hurst [facility] Note Date/Time December 28, 2024 9:39 am [facility] Medical Records Department [address] [place] [address] Emergency Department Summary 12/28/24 MR#: [id number] Acct: [id number] Name: GIOVANNI LOMAX Rep #:[id number] : 1955 69 From: Gonzalo Hurst DO PCP: Dr. Leonidas Traore MD Status:R EG ER Location: ED ADDENDUM by Dr. Caleb Walls MD on 12/28/24 at 0939 Patient was endorsed to me by Dr. Gonzalo Hurst to check a second troponin on this patient that was having chest pain with history of coronary artery disease and stenting. She also has history of malignant hypertension. I reviewed her EKG as well as her initial troponin which was elevated at 102. Her repeat troponin is 116. She remains pain-free. Initially, it was reported that she wanted to sign out AGAINST MEDICAL ADVICE. However, after discussion with the patient and her , she is agreeable to staying. I discussed the patient with Dr. Temi Banda and started the patient on heparin. Dr. Blackburn was made aware patient's elevated troponin and admission. Disposition is admitted to thePCU in stable condition. 12/28/24 0939<Electronically signed by Caleb Walls MD> Cosigner Signature (if applicable): cc: Dr. Leonidas Traore MD ~* Signed HPI History of Present Illness Chief Complaint: Chest Pain Informant: patient and spouse/S.O. Narrative Narrative: Patient is a 69-year-old female with past medical history COPD coronary artery disease 2 previous STEMI's with last stent placement in 2019 and malignant hypertension. She states that despite taking her medication her blood pressure is typically 200/100. She states that last night she went to bed normally and then awoke with a vague discomfort in her mid to right sided chest that she alsofelt in between her shoulder blades. She states there was no associated nausea vomiting or diaphoresis. She reports her shortness of breath is at baseline. She states that the symptoms were similar to her previous ID but also different. She reports she took aspirin and nitro at home without symptom improvement but as she had concerned that the symptoms were cardiac in nature she presents for evaluation [facility] Medical History Carotid artery disease Urinary frequency History of TIA (transient ischemic attack) Nausea Chronic left hip pain Left shoulder pain Anxiety Smoker ICD (implantable cardioverter-defibrillator) in place Myocardial infarct Health care maintenance Colon cancer screening Flu vaccine need Patient noncompliance Tobacco abuse Anxiety and depression Left hand pain History of fracture of clavicle Fracture Depression Chronic pain COPD (chronic obstructive pulmonary disease) Osteoporosis Pre-op chest exam Hyperlipidemia Atherosclerotic heart disease of [place] coronary artery without angina pectoris ST elevation myocardial infarction (STEMI) Hypertension Home Medications ?Medication ?Instructions ?Recorded ?Last Taken ?Type clopidogrel 75 mg tablet (Plavix) 75 mg PO DAILY antip latelet #90 04/29/23 Unknown Rx tabs hydrochlorothiazide 25 mg tablet 25 mg PO DAILY BP #90 tabs 04/29/23 Unknown Rx losartan 100 mg tablet 100 mg PO DAILY dose increas e (BP) 04/29/23 Unknown Rx #90 tabs metoprolol tartrate 25 mg tablet 25 mg PO BID BP #180 tabs 04/29/23 Unknown Rx nitroglycerin 0.4 mg sublingual 0.4 mg sublingual Q5M PRN Chest 04/29/23 Unknown Rx tablet Pain #25 tabs amlodipine 10 mg tablet 10 mg PO DAILY BP #90 tabs 1 07/30/22 Unknown Rx aspirin 81 mg tablet,delayed 81 mg PO DAILY@0800 90 da ys #90 11/11/23 Unknown Rx release tabs atorvastatin 80 mg tablet 80 mg PO QHS 90 days #90 tab s 11/11/23 Unknown Rx denosumab 60 mg/mL subcutaneous 60 mg subcut [id number] #1 mL 12/12/23 Unknown Rx syringe (Prolia) albuterol sulfate 90 mcg/actuation 1 - 2 puff inhalati on Q6H PRN PRN 02/29/24 Unknown Rx aerosol inhaler Sob &/Or Wheezing #8.5 grams fluticasone fur. 100 mcg-umeclid 1 inh inhalation Q24H 3 months #60 09/25/24 Unknown Rx 62.5 mcg-vilant 25 mcg ea inhalat.powder (Trelegy Ellipta) pramipexole 1.5 mg tablet 1.5 mg PO QHS #30 tabs 10/02 Unknown Rx Allergy/AdvReac Type Severity Reaction Status Date / Time No Known Allergies Allergy Verified 12/28/24 05:24 Family History Father , 52 Myocardial infarction Heart disease Hyperlipemia Brother Myocardial infarction CAD (coronary artery disease) CABG and stents Mother Arthritis Depression Osteoporosis Seizures Son Suicide Depression Other Cancer Surgical History History of tonsillectomy History of oophorectomy History of hysterectomy History of shoulder surgery Stented coronary artery (01/10/19) Social History housing: [...] ROS ROS ED Constitutional Constitutional ED: Denies chills, fever(s) or sweats Eyes Eyes: Denies blurry vision or change in vision ENT ENT ED: Denies sore throat Cardiovascular Cardiovascular: Reports chest pain; Denies palpitations or racing heartbeat Respiratory/Chest Respiratory/Chest: Reports cough; Denies dyspnea Gastrointestinal Gastrointestinal: Denies abdominal pain, diarrhea, nausea or vomiting Musculoskeletal Musculoskeletal: Reports back pain Integumentary Denies rash Neurologic Neurologic: Denies headache(s) Hematologic/Lymphatic Hematologic/Lymphatic: Denies easy bleeding or easy bruising EXAM Physical Exam Const Vital Signs: 12/28/24 05:19 12/28/24 05:28 12/28/24 06:18 Temperature 98.6 F Temperature Source Oral Pulse Rate 88 83 76 Respiratory Rate 16 20 H 18 Blood Pressure 225/106 H 206/97 H 180/98 H Blood Pressure Mean 145 133 125 Pulse Ox 97 97 95 Oxygen Delivery Method Room Air Room Air Room Air 12/28/24 06:32 12/28/24 07:00 Temperature Temperature Source Pulse Rate 71 71 Respiratory Rate 20 H 20 H Blood Pressure 188/86 H 193/100 H Blood Pressure Mean 120 131 Pulse Ox 94 93 Oxygen Delivery Method Room Air Room Air Positive well nourished and well developed General Appearance ED: well developed; Negative for pallor HEENT HEENT Narrative: Normocephalic atraumatic Eyes PERRL and EOMs intact bilaterally General Eye ED: Negative for scleral icterus Neck supple and no JVD Chest Wall Chest Narrative: There is reproducible pain with palpation of the mid sternum to right anterior chest wall without bony deformity or crepitance However patient reports this pain is different than what she was experiencing athome Resp normal respiratory effort Resp Narrative: Breath sounds are diminished throughout with diffuse expiratory wheeze and rhonchi in the bilateral bases consistent with history of COPD No signs of respiratory distress however Cardio regular rate and regular rhythm Rate: other Other Details: Heart is regular rate and rhythm without murmurs rubsor gallops Radial and carotid pulses are equal and symmetric There is a left-sided carotid bruit noted GI normal to inspection, nondistended, normoactive bowel sounds, non-tender, non-distended and no masses GI Narrative: No voluntary guarding or rigidity or pulsatile mass Negative Joseph sign Auscultation: normoactive bowel sounds Palpation: soft Back/Spine Back/Spine Narrative: No bony deformity or step-off of the thoracic or lumbar spine no midline tenderness to palpation Extremity normal to inspection Extremity Narrative: No asymmetric edema no pitting edema negative Homans' sign bilaterally Neuro oriented x3, CN's II-XII intact bilaterally and no sensory deficits noted Sensorium / Orientation: alert Motor Exam: strength 5/5 throughout Psych mental status grossly normal Skin no rashes or lesions noted and no wounds General Skin Exam: Negative for jaundice or pallor MDM MDM MDM Narrative Medical decision making narrative: Patient arrived to the ER hypertensive but states that this is her baseline blood pressure. She reported mid to right sided chest discomfort as well as pain within the upper back between the shoulder blade. There is no associated nausea vomiting or diaphoresis the patient does have multiple risk factors for coronary artery disease and with concern for acute coronary syndrome a basic cardiac workup was obtained. With patient's history of COPD she could also havepneumonia or COPD exacerbation driving her symptoms or potentially a PE or dissection. Secondary to this basic blood work was obtained with chest x-ray and a D-dimer. D-dimer is 0.53 and based on the patient's age of 69 the value should be above 0.67/670 to be positive and therefore concern for PE or dissection is low. Chest x-ray revealed chronic findings consistent with COPD but no acute changes. The patient's EKG is sinus rhythm without ischemia or STEMI changes. The initial troponin however is elevated at 102 which would indicate that the patient's symptoms are indeed related to cardiac ischemia. Onreevaluation the patient is resting comfortably she has had mild improvement of her hypertension and she reports that her pain is no longer present. I discussed with patient because of her history of coronary artery disease and previous stent placement and now elevation to her troponin that she should be admitted to the hospital so that she can undergo further cardiac testing such asstress test echo and/or heart cath and her troponins can be trended. The patient states that she is not having pain any longer and is afraid to be admitted to the hospital as she does have responsibilities at home. At this time we will wait until her delta troponin results so that she has more information to make a proper decision regarding admission. As the patient's delta troponin as well as basic metabolic profile and BNP are still pending she will be signed out to the day physician Dr. Walls. He was informed of the patient's initial desire to not stay in the hospital. Because of this I did fill out a left AGAINST MEDICAL ADVICE form. I did go over the risk factors with the patient such as permanent cardiac damage disability and . The patient states that she understands the risks as she has had heart attacks in the past and is willing to accept them at this time. History & Record Review Discussion w/independent historian: Patient and Significant other Lab Data Attestation: I reviewed the patient's lab results. Labs: Laboratory Results - last 24 hr 12/28/24 05:22 WBC 12.7 H RBC 5.05 Hgb 14.6 Hct 44.3 MCV 87.7 MCH 28.9 MCHC 33.0 RDW Std Deviation 44.6 H RDW Coeff of Joleen 13.9 Plt Count 344 MPV 10.4 Immature Gran % (Auto) 0.400 Neut % (Auto) 71.1 H Lymph % (Auto) 22.2 [place] % (Auto) 4.8 Eos % (Auto) 0.9 Baso % (Auto) 0.6 Absolute Neuts (auto) 9.0 H Absolute Lymphs (auto) 2.81 Nucleated RBC % 0 D-Dimer Quant (PE/DVT) 0.53 H* Troponin T High Sens 102 H* Radiography Diagnostic Testing: Clinical Impression(s) from Imaging Studies Chest X-Ray 12/28/24 06:15 IMPRESSION: No evidence for acute abnormality. Reading Location: [place] [address] Chest x-ray as interpreted by the emergency medicine physician reveals no acute infiltrate pneumothorax or pleural effusion or widening of the mediastinum Discharge Plan Triage Chief Complaint: Chest Pain ED Provider: Gonzalo Hurst Dx/Rx/DC Orders Clinical Impression: Non-ST elevated myocardial infarction (non-STEMI), COPD (chronic obstructive pulmonary disease), Malignant hypertension, Coronary artery disease, Hyperlipidemia Prescriptions: No Action Prolia 60 mg/mL syringe 60 mg subcut [id number] Qty: 1 1RF atorvastatin 80 mg tablet 80 mg PO [...] (Reason: Sob &/Or Wheezing) Qty: 8.5 0RF Trelegy Ellipta 100-62.5-25 mcg blister with device 1 inh inhalation Q24H 90 Days Qty: 60 2RF pramipexole 1.5 mg tablet 1.5 mg PO QHS Qty: 30 1RF Primary Care Provider: Leonidas Traore Referrals: Leonidas Traore MD [Primary Care Provider] - Print Language: Uzbek What to do if you have Problems For any increased pain, shortness of breath, bleeding, nausea or vomiting, chestpain, or any unexpected problems, contact your Primary Care Provider. Call [facility] ([phone]) or report to the closest Emergency Room. Call 911 if necessary. 12/28/24 0746 <Electronically signed by Gonzalo Hurst DO> Cosigner Signature (if applicable): CC: Dr. Leonidas Traore MD ~ Signed [facility] Work Phone: Discharge summary Author Temi Banda [facility] Note Date/Time December 29, 2024 2:14 pm [facility] Medical Records Department [address] [place] [address] Instructions for Home/Discharge Instructions 12/29/24 1413 MR#: [id number] Acct: [id number] Name: GIOVANNI LOMAX Rep #:[id number] : 1955 69 From: Temi Banda MD PCP: Dr. Leonidas Traore MD Status:A DM IN Discharge Instructions DC O2, CPAP, BIPAP needs Home O2 Discharge instructions: No Dressing / Incision Discharge Activity: - (See additional instructions) Follow Up Care Test Results: Test results from this visit will be discussed in further detail at your follow- up appointment, if applicable. Discharge Plan Admission Admit Date/Time: 12/28/24 10:09 Primary Reason for Your Visit: Chest burning and back pain Attending Provider: Temi Banda Primary Care Provider: Leonidas Traore Consulting Providers: Alonzo Blackburn Instructions Patient Instructions: Cardiac Cath Transradial Additional Instructions / Restrictions: DISCHARGE INSTRUCTIONS PLEASE READ *Please take this with you to your next doctors appointment* -Do only light and easy activities for 2 to 3 days after your stent placement, ask for help with chores and errands while you recover and have someone drive you to your appointments. -Unless your job involves lifting you may return to normal activities within 2 days -Please take your medications as prescribed, do not skip doses -Check your incisions every day for signs of infection which would include redness, swelling, leaking. It is normal to have a small bruise or bump where the catheter was placed but a bruise that is getting larger is not normal. Please tell your healthcare team about this. Please proceed to the emergency department if you have uncontrollable bleeding from the site. -It is important to eat a diet that is low in fat, salt, and cholesterol -You will be set up with cardiac rehab upon discharge, it is important that you follow-up -Okay to shower from the day after your heart catheterization but keep your incision site clean and dry. -You will need to follow-up with cardiology upon discharge in 7 to 10 days, please call the office upon discharge to schedule your hospital follow-up appointment (ph [phone]) with Edilia Avilez - it is strongly advised to refrain from smoking - please continue your aspirin, atorvastatin, Plavix, metoprolol as well as your other home medications -Please call your primary care provider's office upon discharge to schedule a hospital follow up within 1 week. -For any concerning signs or symptoms please call 911 or proceed to the nearest emergency department Discharge Orders/Prescriptions Prescriptions: Continued Prolia 60 mg/mL syringe 60 mg subcut [id number] Qty: 1 1RF atorvastatin 80 mg tablet 80 mg PO [...] (Reason: Sob &/Or Wheezing) Qty: 8.5 0RF Trelegy Ellipta 100-62.5-25 mcg blister with device 1 inh inhalation Q24H 90 Days Qty: 60 2RF pramipexole 1.5 mg tablet 1.5 mg PO QHS Qty: 30 1RF Referrals / Follow Up: Leonidas Traore MD [Primary Care Provider] - Within 1 Week Edilia Avilez PA [Med Staff - Adv Practice Prof] - Within 2 Weeks (- You will need to follow-up with cardiology upon discharge in 7 to 10 days, please call the office upon discharge to schedule your hospital follow-up appointment ) with Edilia Avilez) Disposition Disposition (needs filled in before D/C Order can be placed): Home, Self Care 12/29/24 1414<Electronically signed by Temi Banda MD>Temi Banda MD CC: Dr. Leonidas Traore MD; Dr. Alonzo Blackburn MD ~ Signed [facility] Work Phone: Discharge summary Author Temi Banda [facility] Note Date/Time December 29, 2024 2:19 pm [facility] Medical Records Department [address] [place] [id number] Discharge Summary 12/29/24 1414 MR#: [id number] Acct: [id number] Name: GIOVANNI LOMAX Rep #:[id number] : 1955 69 From: Temi Banda MD PCP: Dr. Leonidas Traore MD Status:A DM IN Location: [place] [address] Providers Date of Admission: 12/28/24 Date of Discharge: 12/29/24 Primary Care Physician: Dr. Leonidas Traore MD Consultations 12/28/24 12:27 Consult: Cardiology Routine Consulting Provider: Alonzo Blackburn Reason for Consult: Chest Pain EMERGENT Consult: No MD Notified: Yes Date Notified: 12/28/24 Time Notified: 10:28 Method of Notification: Verbal Reason For Visit: CHEST PAIN Diagnosis Discharge Diagnosis (1) Non-ST elevated myocardial infarction (non-STEMI): Status: Acute Code(s): I21.4 - Non-ST elevation (NSTEMI) myocardial infarction (2) COPD (chronic obstructive pulmonary disease): Status: Chronic Code(s): J44.9 - Chronic obstructive pulmonary disease, unspecified Qualifiers: COPD type: unspecified COPD Qualified Code(s): J44.9 - Chronic obstructive pulmonary disease, unspecified (3) Hyperlipidemia: Status: Acute Code(s): E78.5 - Hyperlipidemia, unspecified Qualifiers: Hyperlipidemia type: pure hypercholesterolemia Qualified Code(s): E78.00 - Pure hypercholesterolemia, unspecified (4) Hypertension: Status: Chronic Code(s): I10 - Essential (primary) hypertension Qualifiers: Hypertension type: essential hypertension Qualified Code(s): I10 - Essential (primary) hypertension Plan #Type I NSTEMI #CAD s/p PCI #HTN Urgency #COPD #Tobacco use Medications at Discharge Home Medications clopidogrel 75 [...] mg PO DAILY BP #90 tabs 05/30/23 aspirin 81 mg tablet,delayed release 81 mg PO DAILY@0800 90 days #90 tabs 11/11/23 atorvastatin 80 mg tablet 80 mg PO QHS 90 days #90 tabs 11/11/23 denosumab 60 mg/mL subcutaneous syringe (Prolia) 60 mg subcut [id number] #1 mL 12/12/23 albuterol sulfate 90 mcg/actuation aerosol inhaler 1 - 2 puff inhalation Q6H PRNPRN Sob &/Or Wheezing #8.5 grams 02/29/24 fluticasone fur. 100 mcg-umeclid 62.5 mcg-vilant 25 mcg inhalat.powder (Trelegy Ellipta) 1 inh inhalation Q24H 3 months #60 ea 09/25/24 pramipexole 1.5 mg tablet 1.5 mg PO QHS #30 tabs 10/02/24 Hospital Course Procedures - (Heart catheterization with stent placement) Summary of Care Provided Minutes Spent on Discharge: 32 Hospital Course: Per HPI: GIOVANNI LOMAX, is a 69 F with a history of coronary artery disease with 2 previous stents, hypertension, COPD, tobacco use who presented [facility] ED 12/27/2024 due to chest pain. In the ED patient did initially have a blood pressure of 225/106 with downtrend into 180s, heart rate of 88, respiratory rate 16 and 97% on room air. EKG with no overt ischemic changes but initial troponin 102 with repeat of 116, patient placed on heparin drip and hospitalist contacted for admission. Patient evaluated at bedside and reports she had been in her usual health until last night when she had some nausea, she went to bed and woke up with burning in the center of her chest thatradiated between her shoulder blades. The pain in her back was similar to previous heart attacks prompting her to come to the ED. Patient currently has alittle bit of a headache but reports not presently having the pain in the front of her chest or nausea. Denies any other new or acute complaints INTERVAL HISTORY: Patient went to [facility] shortly after presentation and underwent stenting of a severely diseased RCAWhich she tolerated well. She did get Brilinta. Heart cath and developed shortness of breath but was completely vitally stable with no tachycardic or hypoxia and physical exam normal, it was discussed with cardiology and felt to be Brilinta so this was discontinued and patient's Plavix was resumed and the symptoms resolved. Patient did have some EKG changes but it was felt that this was Evolving residual changes from original event. Initially admission for 1 more day of monitoring for any arrhythmias was discussed with patient but she was adamant that she would be DC home today, ultimately she was agreeable to ambulating the halls and evaluating for hypoxia and if she did not have any ectopy on telemetry by this afternoon she would DC home on current medications and follow-up closely with cardiology which patient was agreeable. Patient ambulated in the halls and maintained 93% without oxygen and had no significant ectopy though necessitate further admission. Patient evaluated bedside denies any current recurrence of chest or back pain, she has no other new or acute complaints. Verbalizes understanding to follow-up cardiology. Prior to DC patient with no significant ectopy on telemetry. Patient discharged home in stable condition with the following discharge instructions: DISCHARGE INSTRUCTIONS PLEASE READ *Please take this with you to your next doctors appointment* -Do only light and easy activities for 2 to 3 days after your stent placement, ask for help with chores and errands while you recover and have someone drive you to your appointments. -Unless your job involves lifting you may return to normal activities within 2 days -Please take your medications as prescribed, do not skip doses -Check your incisions every day for signs of infection which would include redness, swelling, leaking. It is normal to have a small bruise or bump where the catheter was placed but a bruise that is getting larger is not normal. Please tell your healthcare team about this. Please proceed to the emergency department if you have uncontrollable bleeding from the site. -It is important to eat a diet that is low in fat, salt, and cholesterol -You will be set up with cardiac rehab upon discharge, it is important that you follow-up -Okay to shower from the day after your heart catheterization but keep your incision site clean and dry. -You will need to follow-up with cardiology upon discharge in 7 to 10 days, please call the office upon discharge to schedule your hospital follow-up appointment ( [phone]) with Edilia Avilez - it is strongly advised to refrain from smoking - please continue your aspirin, atorvastatin, Plavix, metoprolol as well as your other home medications -Please call your primary care provider's office upon discharge to schedule a hospital follow up within 1 week. -For any concerning signs or symptoms please call 911 or proceed to the nearest emergency department Physical Exam Narrative General: Alert, oriented, no apparent distress HEENT: Atraumatic, normocephalic Eyes: Anicteric, normal conjunctiva, extraocular movements grossly intact Neck: Supple Respiratory: Clear to auscultation bilaterally, normal respiratory effort Cardiovascular: Regular rate and rhythm GI: Soft, nontender, nondistended Extremities: No edema Musculoskeletal: Moving all extremities Neuro: No overt focal neurological deficits Skin: No rashes appreciated Psych: Cooperative Weight / BMI Weight Weight: 87.7 kg Body Mass Index (BMI) 33.2 ABG / Lab / Microbiology Data 12/29/24 06:23 12/29/24 06:23 Laboratory: Laboratory Results - last 24 hr 12/29/24 06:23: WBC 9.9, RBC 4.89, Hgb 14.1, Hct 43.0, MCV 87.9, MCH 28.8, MCHC 32.8, RDW Std Deviation 44.6 H, RDW Coeff of Joleen 13.9, Plt Count 326, MPV 9.8, Immature Gran % (Auto) 0.300, Neut % (Auto) 72.4 H, Lymph % (Auto) 19.7, [place] % (Auto) 5.5, Eos % (Auto) 1.6, Baso % (Auto) 0.5, Absolute Neuts (auto) 7.2, Absolute Lymphs (auto) 1.95, Nucleated RBC % 0, PT 12.8, INR 1.0, Sodium 139, Potassium 3.6, Chloride 102, Carbon Dioxide 25.2, Anion Gap 12, BUN 25 H, Creatinine 0.84, Estim Creat Clear Calc 69.66, Est GFR (MDRD) Non-Af 77, BUN/Creatinine Ratio 29.3 H, Glucose 132 H, Calcium 8.8, Total Bilirubin 0.59, AST 27, ALT 16, Alkaline Phosphatase 63, Total Protein 7.1, Albumin 3.9, Globulin 3.2, Albumin/Globulin Ratio 1.2, TSH 0.775 D/C Instructions Discharge Diet: - (DASH diet) Discharge Activity: - (Additional post-cath instructions given) DC O2, CPAP, BIPAP Needs Home O2 Discharge instructions: No Meaningful Use Info Meaningful Use Meaningful Use Diagnoses (Choose all that apply): AMI AMI/Post PCI/Angioplasty Aspirin given w/in 24hrs of arrival?: Yes ASA at discharge?: Yes Antiplatelet Therapy at Discharge:: Yes Statins at discharge?: Yes Juan/ARB at discharge?: Yes Beta Lorraine at discharge?: Yes Done w/ Acute ID measure.: Yes Ischemic Stroke Statin Dosing Therapy Reference: STATIN [...] Simvastatin 80mg Discharge Plan Admission Admit Date/Time: 12/28/24 10:09 Primary Reason for Your Visit: Chest burning and back pain Attending Provider: Temi Banda Primary Care Provider: Leonidas Traore Consulting Providers: Alonzo Blackburn Instructions Patient Instructions: Cardiac Cath Transradial Additional Instructions / Restrictions: DISCHARGE INSTRUCTIONS PLEASE READ *Please take this with you to your next doctors appointment* -Do only light and easy activities for 2 to 3 days after your stent placement, ask for help with chores and errands while you recover and have someone drive you to your appointments. -Unless your job involves lifting you may return to normal activities within 2 days -Please take your medications as prescribed, do not skip doses -Check your incisions every day for signs of infection which would include redness, swelling, leaking. It is normal to have a small bruise or bump where the catheter was placed but a bruise that is getting larger is not normal. Please tell your healthcare team about this. Please proceed to the emergency department if you have uncontrollable bleeding from the site. -It is important to eat a diet that is low in fat, salt, and cholesterol -You will be set up with cardiac rehab upon discharge, it is important that you follow-up -Okay to shower from the day after your heart catheterization but keep your incision site clean and dry. -You will need to follow-up with cardiology upon discharge in 7 to 10 days, please call the office upon discharge to schedule your hospital follow-up appointment ( [phone]) with Edilia Avilez - it is strongly advised to refrain from smoking - please continue your aspirin, atorvastatin, Plavix, metoprolol as well as your other home medications -Please call your primary care provider's office upon discharge to schedule a hospital follow up within 1 week. -For any concerning signs or symptoms please call 911 or proceed to the nearest emergency department Discharge Orders/Prescriptions Prescriptions: Continued Prolia 60 mg/mL syringe 60 mg subcut [id number] Qty: 1 1RF atorvastatin 80 mg tablet 80 mg PO [...] (Reason: Sob &/Or Wheezing) Qty: 8.5 0RF Trelegy Ellipta 100-62.5-25 mcg blister with device 1 inh inhalation Q24H 90 Days Qty: 60 2RF pramipexole 1.5 mg tablet 1.5 mg PO QHS Qty: 30 1RF Referrals / Follow Up: Leonidas Traore MD [Primary Care Provider] - Within 1 Week Edilia Avilez PA [Med Staff - [facility] Practice Prof] - Within 2 Weeks (- You will need to follow-up with cardiology upon discharge in 7 to 10 days, please call the office upon discharge to schedule your hospital follow-up appointment ( [phone]) with Edilia Avilez) Disposition Disposition (needs filled in before D/C Order can be placed): Home, Self Care Charges/Coding Visit Charges Inpatient E&M: 40539 Disch Hosp >30min 12/29/24 1419 <Electronically signed by Temi Banda MD> Cosigner Signature (if applicable): CC: Dr. Leonidas Traore MD; Dr. Temi Banda MD~ Signed [facility] Work Phone: Evaluation note* Diagnosis Impacted cerumen of right ear- Primary [facility]ed [facility] Diagnosis Onset Date Resolution Status Acute bronchitis acute Contact with or suspected ex posure to other viral communicable disease acute COPD (chronic obstructive pulmonary disease) chronic Hypertension chronic Hyperlipidemia chronic Hypertension chronic Tobacco abuse [facility] Work Phone: Evaluation note* Diagnosis Onset Date Resolution Status Acute bronchitis acute Contact with or suspected ex posure to other viral communicable disease acute COPD (chronic obstructive pulmonary disease) chronic Hypertension chronic Hyperlipidemia chronic Hypertension chronic Tobacco abuse chronic Brain TIA acute [facility] Work Phone: Evaluation note* Diagnosis Onset Date Resolution Status Acute bronchitis acute Contact with or suspected ex posure to other viral communicable disease acute COPD (chronic obstructive pulmonary disease) chronic Hypertension chronic Hyperlipidemia chronic Hypertension chronic Tobacco abuse chronic Brain TIA acute Carotid artery disease acute [facility] Work Phone: Evaluation note* Diagnosis Primary osteoarthritis of left hip- Primary Left hip pain Pain in joint, pelvic region and thigh Left hip pain Pain in joint, pelvic region and thigh [facility] Diagnosis Left hip pain Pain in joint, pelvic region and thigh documented in this encounter [facility] note* Diagnosis Acute cough- Primary COPD with exacerbation (HCC) Obstructive chronic bronchitis with exacerbation Acute cough COPD with exacerbation (HCC) Obstructive chronic bronchitis with exacerbation [facility] Diagnosis Acute cough COPD with exacerbation (HCC) Obstructive chronic bronchitis with exacerbation [facility] Author Rafael Arreaga [facility] November 10, 2023 4:01pm Note Date/Time November 10, 2023 3:28pm [facility] Medical Records Department [address] [place] [address] H&P Exam - Hospitalist 11/10/23 1525 MR#: [id number] Acct: [id number] Name: GIOVANNI LOMAX Rep #:[id number] : 1955 68 From: Rafael Sr PCP: Dr. Leonidas Traore MD Status:A DM [facility] Location: [place] [address] HPI - General General Date of Admission: [...] EKG all reviewed discussed assessment and plan. [facility] Medical History Anxiety and depression Atherosclerotic heart disease of [place] coronary artery without angina pectoris Chronic pain [...] mcg/actuation aerosol inhaler (ProAir HFA) 2 inh [id number] PRN shortness of breath or wheezing 11/10/23 [...] % (Auto) 59.6, Lymph % (Auto) 32.2, [place]% (Auto) 5.4, Eos % (Auto) 2.0, Baso [...] but currently she is not following any certified mortician. Twelve-lead EKG shows normal sinus rhythm, PACs [...] shock if needed Total time spent in [id number] encounter in discussion of advanced directive 17 minutes. Laboratory Results 11/10/23 14:10: WBC 9.8, RBC 5.20, Hgb 15.3 H, Hct 47.2 H, MCV 90.8, MCH 29.4, MCHC 32.4, RDW Std Deviation 45.4 H, RDW Coeff of Joleen 13.4, Plt Count 331, MPV 9.8, Immature Gran % (Auto) 0.200, Neut % (Auto) 59.6, Lymph % (Auto) 32.2, [place]% (Auto) 5.4, Eos % (Auto) 2.0, Baso [...] cerebral artery. Charges/Coding Visit Charges Inpatient E&M: 07324 Init Hosp L3 Procedures Hospitalists Procedures: 58083 Advncd Care Plan 30 Min 11/10/23 1601 <Electronically signed by Rafael Arreaga MD> Cosigner Signature (if applicable): CC: Dr. Leonidas Traore MD; Dr. Rafael Arreaga MD~ Signed [facility] Work Phone: History and physical note Author Temi Banda [facility] Note Date/Time December 28, 2024 10:3 2am [facility] Medical Records Department [address] [place] [id number] H&P Exam - Hospitalist 12/28/24 1009 MR#: [id number] Acct: [id number] Name: GIOVANNI LOMAX Rep #:[id number] : 1955 69 From: Temi Banda MD PCP: Dr. Leonidas Traore MD Status:R EG ER Location: ED HPI - General General Date of Admission: 12/28/24 Date of Service: 12/28/24 Chief Complaint: Chest pain HPI Narrative GIOVANNI LOMAX, is a 69 F with a history of coronary artery disease with 2 previous stents, hypertension, COPD, tobacco use who presented [facility] ED 12/27/2024 due to chest pain. In the ED patient did initially have ablood pressure of 225/106 with downtrend into 180s, heart rate of 88, respiratory rate 16 and 97% on room air. EKG with no overt ischemic changes butinitial troponin 102 with repeat of 116, patient placed on heparin drip and hospitalist contacted for admission. Patient evaluated at bedside and reports she had been in her usual health until last night when she had some nausea, she went to bed and woke up with burning in the center of her chest that radiated between her shoulder blades. The pain in her back was similar to previous heartattacks prompting her to come to the ED. Patient currently has a little bit of a headache but reports not presently having the pain in the front of her chest or nausea. Denies any other new or acute complaints [facility] Medical History Carotid artery disease Urinary frequency History of TIA (transient ischemic attack) Nausea Chronic left hip pain Left shoulder pain Anxiety Smoker ICD (implantable cardioverter-defibrillator) in place Myocardial infarct Health care maintenance Colon cancer screening Flu vaccine need Patient noncompliance Tobacco abuse Anxiety and depression Left hand pain History of fracture of clavicle Fracture Depression Chronic pain COPD (chronic obstructive pulmonary disease) Osteoporosis Pre-op chest exam Hyperlipidemia Atherosclerotic heart disease of [place] coronary artery without angina pectoris ST elevation myocardial infarction (STEMI) Hypertension Home Medications ?Medication ?Instructions ?Recorded ?Last Taken ?Type clopidogrel 75 mg tablet (Plavix) 75 mg PO DAILY antip latelet #90 04/29/23 Unknown Rx tabs hydrochlorothiazide 25 mg tablet 25 mg PO DAILY BP #90 tabs 04/29/23 Unknown Rx losartan 100 mg tablet 100 mg PO DAILY dose increas e (BP) 04/29/23 Unknown Rx #90 tabs metoprolol tartrate 25 mg tablet 25 mg PO BID BP #180 tabs 04/29/23 Unknown Rx nitroglycerin 0.4 mg sublingual 0.4 mg sublingual Q5M PRN Chest 04/29/23 Unknown Rx tablet Pain #25 tabs amlodipine 10 mg tablet 10 mg PO DAILY BP #90 tabs 1 07/30/22 Unknown Rx aspirin 81 mg tablet,delayed 81 mg PO DAILY@0800 90 da ys #90 11/11/23 Unknown Rx release tabs atorvastatin 80 mg tablet 80 mg PO QHS 90 days #90 tab s 11/11/23 Unknown Rx denosumab 60 mg/mL subcutaneous 60 mg subcut [id number] #1 mL 12/12/23 Unknown Rx syringe (Prolia) albuterol sulfate 90 mcg/actuation 1 - 2 puff inhalati on Q6H PRN PRN 02/29/24 Unknown Rx aerosol inhaler Sob &/Or Wheezing #8.5 grams fluticasone fur. 100 mcg-umeclid 1 inh inhalation Q24H 3 months #60 09/25/24 Unknown Rx 62.5 mcg-vilant 25 mcg ea inhalat.powder (Trelegy Ellipta) pramipexole 1.5 mg tablet 1.5 mg PO QHS #30 tabs 10/02 Unknown Rx Allergy/AdvReac Type Severity Reaction Status Date / Time No Known Allergies Allergy Verified 12/28/24 05:24 Family History Father , 52 Myocardial infarction Heart disease Hyperlipemia Brother Myocardial infarction CAD (coronary artery disease) CABG and stents Mother Arthritis Depression Osteoporosis Seizures Son Suicide Depression Other Cancer Surgical History History of tonsillectomy History of oophorectomy History of hysterectomy History of shoulder surgery Stented coronary artery (01/10/19) Social History housing: house Smoking Status: Current every day smoker tobacco type: cigarettes Tobacco: How many years used: 50 alcohol intake: current alcohol intake frequency: holidays/special occasions only Alcohol type: wine substance use type: marijuana caffeine: Yes Type: coffee Number of servings: 3 what type of physical activity do you participate in: none ROS ROS Narrative General: Denies fever/chills HENT: Little bit of a headache, denies stuffy nose, denies sore throat EYES: Denies changes in vision Resp: Denies any new cough, does have some baseline shortness of breath but thisis unchanged Cardiac: Denies chest pain currently GI: Denies abdominal pain, denies changes in bowel, denies nausea/vomiting currently : Denies changes in urination Extremity: Denies swelling MSK: Denies weakness Neuro: Denies any numbness/tingling Heme: Denies any bleeding or bruising Skin: Denies rashes Psychiatric: No complaints voiced Vital Signs Vital Signs Vital Signs: 12/28/24 05:19 12/28/24 05:28 12/28/24 06:18 Temperature 98.6 F Temperature Source Oral Pulse Rate 88 83 76 Respiratory Rate 16 20 H 18 Blood Pressure 225/106 H 206/97 H 180/98 H Blood Pressure Mean 145 133 125 Pulse Ox 97 97 95 Oxygen Delivery Method Room Air Room Air Room Air 12/28/24 06:32 12/28/24 07:00 12/28/24 07:00 Temperature Temperature Source Pulse Rate 71 71 72 Respiratory Rate 20 H 20 H 20 H Blood Pressure 188/86 H 193/100 H 193/100 H Blood Pressure Mean 120 131 128 Pulse Ox 94 93 94 Oxygen Delivery Method Room Air Room Air 12/28/24 07:15 12/28/24 08:00 12/28/24 08:41 Temperature Temperature Source Pulse Rate 77 85 Respiratory Rate 15 18 Blood Pressure 188/96 H 190/99 H 190/99 H Blood Pressure Mean 122 129 127 Pulse Ox 95 96 Oxygen Delivery Method Room Air 12/28/24 08:45 12/28/24 09:00 12/28/24 09:33 Temperature 98.2 F Temperature Source Pulse Rate 74 72 79 Respiratory Rate 20 H 19 H 20 H Blood Pressure 195/96 H 185/92 H 189/103 H Blood Pressure Mean 123 116 131 Pulse Ox 95 95 96 Oxygen Delivery Method 12/28/24 09:36 Temperature 98.2 F Temperature Source Oral Pulse Rate 78 Respiratory Rate 19 H Blood Pressure 189/103 H Blood Pressure Mean 131 Pulse Ox 95 Oxygen Delivery Method Room Air Weight Weight: 85.9 kg Body Mass Index (BMI) 32.5 Physical Exam Narrative General: Alert, oriented, no apparent distress HEENT: Atraumatic, normocephalic Eyes: Anicteric, normal conjunctiva, extraocular movements grossly intact Neck: Supple Respiratory: Scattered wheezes, normal respiratory effort Cardiovascular: Regular rate and rhythm GI: Soft, nontender, nondistended Extremities: No edema Musculoskeletal: Moving all extremities Neuro: No overt focal neurological deficits Skin: No rashes appreciated Psych: Cooperative Results Lab / Micro Data 12/28/24 05:22 12/28/24 05:22 Labs: Laboratory Results - last 24 hr 12/28/24 05:22: WBC 12.7 H, RBC 5.05, Hgb 14.6, Hct 44.3, MCV 87.7, MCH 28.9, MCHC 33.0, RDW Std Deviation 44.6 H, RDW Coeff of Joleen 13.9, Plt Count 344, MPV 10.4, Immature Gran % (Auto) 0.400, Neut % (Auto) 71.1 H, Lymph % (Auto) 22.2, [place] % (Auto) 4.8, Eos % (Auto) 0.9, Baso % (Auto) 0.6, Absolute Neuts (auto) 9.0 H, Absolute Lymphs (auto) 2.81, Nucleated RBC % 0, PT 12.8, INR 0.9, APTT 28.6, D- Dimer Quant (PE/DVT) 0.53 H*, Sodium 137, Potassium 4.1, Chloride 99, Carbon Dioxide 22.1, Anion Gap 16 H, BUN 18, Creatinine 0.71, Estim Creat Clear Calc 72.37, Est GFR (MDRD) Non-Af 94, BUN/Creatinine Ratio 25.4 H, Glucose 131 H, Calcium 8.9, Total Bilirubin 0.38, Direct Bilirubin 0.15, AST 20, ALT 16, Alkaline Phosphatase 68, Troponin T High Sens 102 H*, NT pro BNP II 174, Total Protein 7.7, Albumin 4.1, Globulin 3.6, Lipase 29 12/28/24 08:20: Troponin T Hi Sens 2 Hr 116 H* Imaging Radiology Impression Chest X-Ray 12/28/24 06:15 IMPRESSION: No evidence for acute abnormality. [facility] [address] Assessment & Plan Assessment/Plan (1) Chest pain: PLAN: Plan # NSTEMI unclear subtype - Patient presented with burning chest pain rating to her back with the back pain similar to previous MIs concerning that this may be a type I NSTEMI - No EKG changes but initial troponin 102 with increased to 116 - Trend troponins - Continue heparin drip - Cardiology consulted, will keep patient n.p.o. as she may need heart catheterization - Patient has aspirin and Plavix on home medication list as well as metoprolol, will continue - Echo ordered # Hypertensive urgency versus emergency - If cardiac workup otherwise unrevealing may be that patient's elevated troponins were due to her significantly high blood pressure however given her concerning signs and symptoms consistent with a previous ID requiring stenting there is concern this could be a type I ID - Will continue home medications and add as needed -May ultimately need further medication adjustments if patient remains hypertensive - Cardiology consulted #Hx COPD -Continue home inhalers -Incentive spirometer #Tobacco use -Advise cessation -Nicotine replacement available if desired #DVT ppx: Presently on heparin kate Banda MD Charges/Coding Visit Charges Inpatient E&M: 22810 Init Hosp L2 12/28/24 1032 <Electronically signed by Temi Banda MD> Cosigner Signature (if applicable): CC: Dr. Leonidas Traore MD; Dr. Temi Banda MD~ Signed [facility] Work Phone: Hospital Discharge instructionsAmbulatory Orders* Phase II, Outpatient Cardiac Rehab Location: None Selected [facility] Work Phone: Instructions* Name Dates Details How to Access Health Informa tion Online using Patient Portal and 3rd [employer] Apps Indication:Smoker Start:20-Jun-2020 Instruction Type:Patient Education Patient [...] tion Online using Patient Portal and 3rd [employer] Apps Indication:Smoker Start:20-Jun-2020 Instruction Type:Patient Education Patient [...] Internal Medicine; [facility] Work Phone: reason for referral (narrative)No reason for referral information availableWPremier Health [facility] Work Phone: Family History Unknown Family Member Name Dates Details Alcohol [...] Informa tion Online using Patient Portal and [employer] Apps Indication:Smoker Start:20-Jun-2020 Instruction Type:Patient Education Patient [...] tion Online using Patient Portal and 3rd [employer] Apps Indication:Smoker Start:20-Jun-2020 Instruction Type:Patient Education Patient [...] Instructions for Treatment Summary Purpose Advance Directives Documents on File Type Date Recorded 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 Advance Directives and Living Will Power of Print Production Coordinator Latest Code Status on File Code Status Date Activated Date Inactivated Comments Full Code 11/30/2019 9:49 AM Documents on File Type Date Recorded 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 Advance Directive(s) Advance Directive Response Recorded Date/ Time Advance Directives No February 05 3:34pm Living Will No November 12, 2019 1: 18pm Power of Print Production Coordinator No November 12, 2019 1:18pm Advance Directive Response Recorded Date/ Time Advance Directives No February 05 4:34pm Living Will No November 12, 2019 2: 18pm Power of Print Production Coordinator No November 12, 2019 2:18pm Advance Directive Response Recorded Date/ Time Advance Directives No February 05 4:34pm Living Will No November 10, 2023 2: 13pm Power of Print Production Coordinator No November 10, 2023 2:13pm Advance Directive Response Recorded Date/ Time Advance Directives No February 05 4:34pm Living Will No November 10, 2023 4: 19pm Power of Print Production Coordinator No November 10, 2023 4:19pm Advance Directive Response Recorded Date/ Time Advance Directives No December 06 11:38am Advance Directive Response Recorded Date/ Time Do you have a Healthcare Power of Print Production Coordinator? No December 28, 2024 5:19am Advance Directives No November 07 11:54am Advance Directive Response Recorded Date/ Time Do you have a Healthcare Power of Print Production Coordinator? No December 28, 2024 12:56pm Advance Directives No November 07 11:54am Advance Directive Response Recorded Date/ Time Do you have a Healthcare Power of Print Production Coordinator? No December 28, 2024 12:56pm Advance Directives on File No January 03, 2025 11:10am Living Will No January 03, 2025 11:10am Do you have a Healthcare Power of Print Production Coordinator? No January 03, 2025 11:10am Advance Directives No November 07 11:54am Discharge Instructions * Instructions* Hayley Elizondo RN - 11/29/2019 Please bring your [facility] Surgical Information folder on the day of [...] aspirin and start Plavix as instructed by certified mortician&surgeon, Tonie is on hold Additional instructions: none [...] ORIF (Open Reduction With Internal Fixation): Pre-op (Uzbek) documented in this encounter* Instructions* Babak Underwood [...] on exer tion) Atherosclerotic heart disease of [place] coronary artery without angina pectoris Hyperlipidemia Hypertension [...] artery disease September 12, 2024 1 :55pm Chief Complaint Admit Date PROLIA-$0 August 31, 2024 1:03pm Disorder of arteries arterioles September 1:55pm Amb Documentation November 14, 2024 12:48p m CHEST PAIN December 28, 2024 10:0 9am Reason for Visit Admit Date Carotid artery disease September 12, 2024 1 :55pm Chest pain December 28, 2024 10:0 9am Non-ST elevated myocardial infarction (n on-STEMI) December 28, 2024 10:09am COPD (chronic obstructive pulmonary dise ase) December 28, 2024 10:09am Chief Complaint Admit Date PROLIA-$0 August 31, 2024 1:03pm Disorder of arteries arterioles September 1:55pm Amb Documentation November 14, 2024 12:48p m CHEST PAIN December 28, 2024 10:0 9am CHEST PAIN December 28, 2024 10:3 9am CHEST PAIN December 29, 2024 9:49 am CHEST PAIN December 29, 2024 2:14 pm Reason for Visit Admit Date Carotid artery disease September 12, 2024 1 :55pm Chest pain December 28, 2024 10:0 9am Hyperlipidemia December 28, 2024 10:0 9am Non-ST elevated myocardial infarction (n on-STEMI) December 28, 2024 10:09am COPD (chronic obstructive pulmonary dise ase) December 28, 2024 10:09am Hypertension December 28, 2024 10:0 9am Chief Complaint Admit Date Disorder of arteries arterioles September 1:55pm Amb Documentation November 14, 2024 12:48p m CHEST PAIN December 28, 2024 10:0 9am CHEST PAIN December 28, 2024 10:3 9am CHEST PAIN December 29, 2024 9:49 am CHEST PAIN December 29, 2024 2:14 pm Referral Order December 31, 2024 9:49 am Chief Complaint Admit Date Disorder of arteries arterioles September 1:55pm Amb Documentation November 14, 2024 12:48p m CHEST PAIN December 28, 2024 10:0 9am CHEST PAIN December 28, 2024 10:3 9am CHEST PAIN December 29, 2024 9:49 am CHEST PAIN December 29, 2024 2:14 pm Referral Order December 31, 2024 9:49 am PCI w/stent January 03, 2025 10:5 2am S/P [facility] 12/29 NSTEMI January 03, 2025 12:5 0pm Reason for Visit Admit Date Carotid artery disease September 12, 2024 1 :55pm Chest pain December 28, 2024 10:0 9am Hyperlipidemia December 28, 2024 10:0 9am Non-ST elevated myocardial infarction (n on-STEMI) December 28, 2024 10:09am COPD (chronic obstructive pulmonary dise ase) December 28, 2024 10:09am Hypertension December 28, 2024 10:0 9am Hyperlipidemia January 03, 2025 12:5 0pm Atherosclerotic heart diseas e of [place] coronary artery without angina pectoris January 03, 2025 12:50pm Hypertension January 03, 2025 12:5 0pm Stented coronary artery January 03, 2025 12:50pm Additional Source Comments INFORMATION SOURCE (unrecogn ized section and content) DATE CREATED AUTHOR 11/21/2019 [facility] DATE CREATED AUTHOR AUTHOR'S ORGANIZ ATION 12/05/2019 [facility] DATE CREATED AUTHOR AUTHOR'S ORGANIZ ATION 12/21/2023 [facility] DATE CREATED AUTHOR AUTHOR'S ORGANIZ ATION 06/08/2024 [facility] DATE CREATED AUTHOR AUTHOR'S ORGANIZ ATION 01/02/2025 [facility] Source Comments (unrecognize d section and content) In the event this informatio n is protected by the Federal Confidentiality of Alcohol and Drug Abuse Patient Records regulations: The Federal rules restrict any use of the information to criminally investigate or prosecute any alcohol or drug abuse patient.[facility] Health[facility] the event this information is protected by the Federal Confidentiality of Alcohol and Drug Abuse Patient Records regulations: The Federal rules restrict any use of the information to criminally investigate or prosecute any alcohol or drug abuse patient.[facility] HealthIn the event this information is protected by the Federal Confidentiality of Alcohol and Drug Abuse Patient Records regulations: The Federal rules restrict any use of the information to criminally investigate or prosecute any alcohol or drug abuse patient.[facility] Reason for Visit (unrecogniz ed section and content) Reason Comments Ear Pain (RT) ear pain rated 2, x4 days Reason Comments Hip Pain Left Arm Pain Left Reason Comments Chest Congestion cough, headache x 2 weeks Care Teams (unrecognized sec tion and content) Internet Programmer Relationship Specialty Start Date End Date WadeKelly watson DO Minda [address] [place] [address] PCP - General Internal Medicine 06/25/19 Team [...] Dr. Leonidas Traore MD Primary Care P thomas, Attending Provider, Referring Provider Active Team Status: [...] MD Other Provider Active Dr. Birdie Acuna DO Other Provider Active Dr. Marivel Perez MD [...] Arreaga MD Admit Provider, Other Provider Active rBaxton Sadler MD Other Provider Active Dr. Alejandro Desai MD Other Provider Active Amanda Ugarte MD Other Provider Active Dr. Birdie Acuna DO Other Provider Active Dr. Marivel Perez MD [...] Dr. Guido Denny MD Other Provider Active Internet Programmer Relationship Specialty Start Date End Date Kelly Ma DO [address] [place] [phone] PCP - General 11/29/19 Internet Programmer Relationship Specialty Start Date End Date Kelly MaDO [address] [place] [phone] PCP - General 11/29/19 Internet Programmer Relationship Specialty Start Date End Date Leoindas Traore MD [address] [place] [address] PCP - General Internal Medicine 06/05/24 Internet Programmer Relationship Specialty Start Date End Date Leonidas Traore MD [address] [place] [address] PCP - General Internal Medicine 06/05/24 Team [...] September 12, 2024 End: September 12, 2024 Team Status: Active Member Role Status Dates Dr. Leonidas Traore MD Primary Care Provider Active Start: November 14, 2024 Bárbara Coburn LINOTYPER, LINOTYPER-C Attending Provider Active Start: November 14, 2024 Team Status: Active Member Role Status Dates Dr. Leonidas Traore MD Primary Care Provider Active Start: December 28, 2024 Dr. Gonzalo Hurst DO Emergency Provider Active Start: December 28, 2024 Dr. Temi Banda MD Admit Provider Active Star t: December 28, 2024 Dr. Temi Banda MD Attending Provider Active Start: December 28, 2024 Team Status: Inactive Member Role Status Dates Dr. Leonidas Traore MD Primary Care Provider Active Start: December 28, 2024 End: December 29, 2024 Dr. Gonzalo Hurst DO Emergency Provider Active Start: December 28, 2024 End: December 29, 2024 Dr. Temi Banda MD Admit Provider Active Star t: December 28, 2024 End: December 29, 2024 Dr. Temi Banda MD Attending Provider Active Start: December 28, 2024 End: December 29, 2024 Dr. Alnozo Blackburn MD Other Provider Active St art: December 28, 2024 End: December 29, 2024 Team Status: Active Member Role Status Dates Dr. Leonidas Traore MD Primary Care Provider Active Start: December 28, 2024 Dr. Gonzalo Hurst DO Emergency Provider Active Start: December 28, 2024 Dr. Temi Banda MD Admit Provider Active Star t: December 28, 2024 Dr. Temi Banda MD Other Provider Active Star t: December 28, 2024 Dr. Alonzo Blackburn MD Attending Provider Active Start: December 28, 2024 Team Status: Active Member Role Status Dates Dr. Leonidas Traore MD Primary Care Provider Active Start: December 29, 2024 Dr. Gonzalo Hurst DO Emergency Provider Active Start: December 29, 2024 Dr. Temi Banda MD Admit Provider Active Star t: December 29, 2024 Dr. Temi Banda MD Other Provider Active Star t: December 29, 2024 Dr. Alonzo Blackburn MD Attending Provider Active Start: December 29, 2024 Dr. Alonzo Blackburn MD Other Provider Active St art: December 29, 2024 Team Status: Active Member Role Status Dates Dr. Leonidas Traore MD Primary Care Provider Active Start: December 29, 2024 Dr. Gonzalo Hurst DO Emergency Provider Active Start: December 29, 2024 Dr. Temi Banda MD Admit Provider Active Star t: December 29, 2024 Dr. Temi Banda MD Attending Provider Active Start: December 29, 2024 Dr. Temi Banda MD Other Provider Active Star t: December 29, 2024 Dr. Alonzo Blackburn MD Other Provider Active St art: December 29, 2024 Team Status: Active Member Role Status Dates Dr. Leonidas Traore MD Primary Care Provider Active Start: December 28, 2024 Dr. Tony Fernandez MD Attending Provider Activ e Start: December 28, 2024 Team Status: Active Member Role Status Dates Dr. Leonidas Traore MD Primary Care Provider Active Start: December 31, 2024 Dr. Alonzo Blackburn MD Attending Provider Active Start: December 31, 2024 Team Status: Active Member Role Status Dates Dr. Leonidas Traore MD Primary Care Provider Active Start: January 03, 2025 Dr. Alonzo Blackburn MD Attending Provider Active Start: January 03, 2025 Dr. Alonzo Blackburn MD Referring Provider Active Start: January 03, 2025 Team Status: Inactive Member Role Status Dates Dr. Leonidas Traore MD Primary Care Provider Active Start: January 03, 2025 End: January 03, 2025 Dr. Leonidas Traore MD Referring Provider Active Start: January 03, 2025 End: January 03, 2025 Edilia BONNER, PA Attending Provider Active Start: January 03, 2025 End: January 03, 2025 Goals (unrecognized section and content) Goals may [...] BE BASED ON THE PRIMARY CLINICAL RECORDS. [employer] provides no warranty or guarantee of the accuracy or completeness of information in this document.
== END | disposition home or self-care (01) ==
LOC: CR 10:54
PROVIDERS: PCP Internal Medicine; Referring Provider Internal Medicine Cardiovascular Disease; Visit Provider Internal Medicine Cardiovascular Disease
DX: I25.10 Atherosclerotic heart disease of native coronary artery without angina pectoris (principal); Z95.5 Presence of coronary angioplasty implant and graft

== ENCOUNTER 2025-01-07 13:31 | Outpatient (RCR) | payer MEDICARE, OTHER, SELFPAY ==
[2025-01-03 12:13] VITALS: BMI 29.3
== END 2025-01-07 23:59 ==
LOC: CR 13:31
PROVIDERS: PCP Internal Medicine; Referring Provider Internal Medicine Cardiovascular Disease; Visit Provider Internal Medicine Cardiovascular Disease
DX: I21.4 Non-ST elevation (NSTEMI) myocardial infarction (principal); Z95.5 Presence of coronary angioplasty implant and graft
CPT/HCPCS: 93798

== ENCOUNTER 2025-01-09 10:16 | Outpatient (RCR) | payer MEDICARE, OTHER, SELFPAY ==
[2025-01-03 12:13] VITALS: BMI 29.3
--- NOTE | 2025-01-29 08:31 | CR.ITP_ITS ---
Exercise - Initial Assessment Visit Session #:: 1 Comments:: Pt was on med hold till 01/25/25 due to having a stroke. Pt is unsure when she will return at this time. Physician Prescribed Exercise Modalities: Treadmill, SciFit Stepper and SciFit Pro-II Ergometer Nutrition - Initial Assessment Weight Mgt (Other Care) Height: 5 ft 4 in Weight:: 171 lb BMI: 29.3 Core - Initial Assessment Tobacco Use Years Smokin Psychosocial - Initial Assess Target Goals Target Goals Referral to Behavioral Health PS - Interventions: Yes: Attend Stress Management Classes Patient Health Questionnaire PHQ-9 Screening 30-Day Re-eval Assessment: 1. Little interest or pleasure in doing things: Nearly every day 2. Feeling down, depressed, or hopeless: Several days 3. Trouble falling or staying asleep, or sleeping too much: Nearly every day 4. Feeling tired or having little energy: Nearly every day 5. Poor appetite or overeating: More than half the days 6. Feeling bad about yourself -- or that you are a failure or have let yourself or your family down: Not at all 7. Trouble concentrating on things, such as reading the newspaper or watching television: More than half the days 8. Moving or speaking so slowly that other people could have noticed. Or the opposite - being so fidgety or restless that you have been moving around a lot more than usual: Not at all 9. Thoughts that you would be better off , or of hurting yourself in some way: Several days (Pt states that she has no intention of harming herself. This is due to the of her child. Offered to help pt contact a counselor and she declined for now. Pt was in counseling in the past.) Total Score: 15 Self-Efficacy 6-Item Scale 30-Day Re-eval Assessment: We would like to know how confident you are in doing certain activities. Please select your confidence level for: Fatigue Select Number: 1 Physical Discomfort or Pain Select Number: 1 Emotional Distress Select Number: 1 Other Symptoms or Health Problems Select Number: 1 Different Tasks and Activities Select Number: 1 Medication Select Number: 1 Total Score:: 1 Nutrition Survey Nutrition Survey Instructions Scoring Instructions Exercise - 30-day Assessment Visit Date of Eval: 01/29/25 Session #:: 1 Comments:: Pt was on med hold till 01/25/25 due to having a stroke. Pt is unsure when she will return at this time. Physician Prescribed Exercise Modalities: Treadmill, SciFit Stepper and SciFit Pro-II Ergometer Frequency: 3x/week for 12 weeks [36 sessions] Intensity: 60-80% of age predicted maximum heart rate reserve Duration: 30 - 45 minutes Current METSs:: 3 Target Heart Rate:: 92-115 Current RPE:: 11-13 Maximum Excercise HR:: 105 Resting Blood Pressure: 180/98 Maximum Exercise Blood Pressure: 160/80 EKG Type: NSR to ST with T wave inversion with rare pac, pvc Outcomes & Goals Goals:: Verbalizes understanding of THR, RPE & goal METS by session 6, Documents in home exercise log/reports 30 min aerobic 5 day/wk by DC, Demonstrates accurate pulse taking by DC and Other additional outcome/goals: see below Intervention & Plan Exercise Program Goals: Instruct on personal THR & RPE, Instruct on MET level & personal MET goal, Show patient to take own pulse /validate performance until accurate, Instruct on home exercise and Other additional plan/int Physical Activity Home Exercise Physical Activity - Home Exercise: Safe Exercise, Warm-up, Self-monitoring, Cool-Down, Home Exercise > 30 min Daily and Sitting Time <3 hours/daily Outcomes & Goals Outcomes/Goals: Demonstrates correct Warm-up/exercise Cool-Down (S3) if = 2.5 METs, Verbalizes symptoms of exercise intolerance by Session 3 (S3), Demonstrate safe equipment use (S3) & follows exercise prescrition (6) and Other: See below Intervention & Plan Plan/Intervention: Instruct warm-up & cool-down if exercising at > 2 METs, Instruct on symptoms of exercise intolerance & actions to take, Instruct & monitor on saf, Assess intial functional capacity & safety risk and Other See below 30-day Reassessments 30 day Reassessments:: Not Met Exercise - 60-day Assessment Physician Prescribed Exercise Modalities: Treadmill, SciFit Stepper and SciFit Pro-II Ergometer Exercise - 90-day Assessment Physician Prescribed Exercise Modalities: Treadmill, SciFit Stepper and SciFit Pro-II Ergometer Exercise - Final/Discharge Physician Prescribed Exercise Modalities: Treadmill, SciFit Stepper and SciFit Pro-II Ergometer Nutrition - 30-Day Assessment Program Goals Nutrition Program Goals Patient has diagnosis of Hyperlipidemia (ICD E78)?: Yes Visit Date of Eval: 01/29/25 Session #:: 1 Cholesterol/Lipids (Other Core Measures) Determine presence & major risk factors that modify LDL goal: Cigarette smoking, Hypertension or hypertensive medication, Low HDL cholesterol <40 mg/dL*, Family history of premature CHD in Male < 55 years: female <65 yearsFa and Age men > 45 years; women >/= 55 years Outcomes/Goals: Pt IDs own risk factors & lifestyle modifications by Session 10, Verbalizes symptoms of angina & response by session 3., Pt independently manages and Other Additional Outcomes/Goals: Intervention/Plan: Advocate for lipid panel cholesterol medication if applicable, Instruct on personal lipid levels & lipid goals/NCEP guidelines, Instruct on cholesterol and Other additional plan/int Diabetes (Other Core Measures) Diabetes Type: Not Applicable Weight Mgt (Other Care) Height: 5 ft 4 in Weight:: 171 lb BMI: 29.3 Diagnosis Overweight/Obesity BMI> 30% ICD-10 E66: No Diagnosis High BMI/Morbid Obesity BMI> 35% ICD-10 Z68: No Outcomes/Goals: Pt sets, maintains & shows weight loss goal & trend during rehab and Other additional outcomes/goals Intervention/Plan: Instruct on ideal BMI & set weight loss goal w/patient, Assist pt to ID & incorporate diet changes for weight loss by S9, Refer to Structured Weight Loss program as appropriate, Encourage goal of using 250- 300dcal per session for weight loss and Other additional plan/interventions Healthy Eating Habits Will attend diet classes:: Yes Outcomes/Goals:: Consume diet rich in vegs,fruits,whole grain/high fiber,fish,lean meat, Limit sat/trans fats,cholesterol & added salts & sugars and Other additional outcome/goals: Intervention/Plan:: Assess current eating habits and Other Additional plan/interventions 30-day Reassessments:: Not Met Education Gave educational materials for:: Signs & symptoms of hypoglycemia, Signs & symptoms of hyperglycemia, Relate diabetes to coronary artery disease and Healthy eating Nutrition - 60-Day Assessment Weight Mgt (Other Care) Height: 5 ft 4 in Weight:: 171 lb BMI: 29.3 Core - 30-Day Assessment Visit Date of Eval: 01/29/25 Session #:: 1 Medication Compliance Preventative Medication(s):: Clopidogrel/P2Y12 inhibit, Statin/lipid and Beta marty H/O mental health issues: depression, anxiety, or addiction?: Yes Doesn?t believe in the benefits of treatment?: No Believes medications are unnecessary or harmful?: No Has a concern about medication side effects?: No Expresses concern over the cost of medications?: No Outcomes/Goals: Verbalizes medications,desired effect & common side effects @ DC, Pt self-reports following medication regimen, Keeps card in wallet w/medications listed by DC and Other additional outcome/goals: Interventions/plans: Instruct on medication effects & side effects, Review medication list w/patient every two weeks, Instruct importance of taking meds as ordered & assist problem solving and Other additional Tobacco Use Tobacco Use: Cigarettes How many cigarettes do you smoke per day?: 20 Years Smokin Outcomes/Goals: Smoking cessation achieved or maintained by discharge, Identify aids/strategies for achieving smoking cessation by session 6 and Other additional outcome/goals Interventions/plan: Instruct on effects of smoking & provide smoking cessation resource, Assist pt to set quit date & provide encouragement, Assist pt to develop strategies to achieve/maintain quit date, Assist pt w/nicotine replacement & medication for cessation success and Other additional plan/interventions 30-day Reassessments:: Not Met Reassessment Notes & Comments:: Will encourage smoking cessation upon pt's return to rehab. Hypertension Resting Blood Pressure:: 180/98 [place] [employer] Hypertension Guidelines Peak Exercise Blood Pressure:: 160/80 Outcomes/Goals: Able to verbalize/achieve optimal blood pressure <130/80, Incorporates diet changes & exercise for blood pressure control by DC and Other additional outcomes/goals Interventions/plan: Instruct on optimal blood pressure, hypertension & medications, Instruct on effects of sodium, alcohol, stress, exercise &hypertension and Other additional plan/interventions 30 day Reassessments:: Not Met Tobacco Cessation Referral Education Schedule Given:: Yes Psychosocial - 30-Day Assess VIsit Date of Eval: 01/29/25 Session #:: 1 History of previous Mental disease:: Yes History of Emotional Disorders: Anxious and Depression Self-reported stressors Other/Comments:: Family (Pt states that the of her child has been the cause of her depression.) Target Goals Target Goals Psychosocial Test Tool Used:: PHQ-9 Questionnaire phq-9 Severity See PHQ-9 Score: 15 Referral to Behavioral Health PS - Interventions: Yes: Attend Stress Management Classes Outcomes/Goals: See list Psychosocial Outcomes/Goals:: ID's personal stressors & 2 strategies to manage stress by discharge and Other Additional outcome/goals: Intervention/Plan: See List Interventions/Plan:: Assess stressors,coping strategies & signs of derpression on admission, Instruct/assist pt to develop coping & personal stress Mgt strategies, Refer to Behavioral Health if appropriate, Refer to Physician if appropriate, Instruct patient to recognize signs & symptoms of depression, Instruct patient to recog and Other additional plan/intervention 30-day Reassessments: 30 day Reassessments:: Not Met Psychosocial - 60-Day Assess Target Goals Target Goals Referral to Behavioral Health PS - Interventions: Yes: Attend Stress Management Classes Outcomes/Goals: See list Psychosocial Outcomes/Goals:: ID's personal stressors & 2 strategies to manage stress by discharge and Other Additional outcome/goals: Psychosocial - 90-Day Assess Target Goals Target Goals Referral to Behavioral Health PS - Interventions: Yes: Attend Stress Management Classes Psychosocial - Final Assessmen Target Goals Target Goals Referral to Behavioral Health PS - Interventions: Yes: Attend Stress Management Classes Nutrition - 90-Day Assessment Weight Mgt (Other Care) Height: 5 ft 4 in Weight:: 171 lb BMI: 29.3 Nutrition - Final Assessment Weight Mgt (Other Care) Height: 5 ft 4 in Weight:: 171 lb BMI: 29.3
[2025-01-29 08:44] VITALS: BP 180/98; BMI 29.3
== END 2025-02-07 23:59 ==
LOC: CR 10:16
PROVIDERS: PCP Internal Medicine; Referring Provider Internal Medicine Cardiovascular Disease; Visit Provider Internal Medicine Cardiovascular Disease
DX: I21.4 Non-ST elevation (NSTEMI) myocardial infarction (principal); Z95.5 Presence of coronary angioplasty implant and graft
CPT/HCPCS: 93798

== ENCOUNTER 2025-01-14 09:50 | Emergency (ER) | payer MEDICARE, OTHER, SELFPAY ==
[2025-01-03 12:13] VITALS: BMI 29.3
[2025-01-14] VITALS (10 sets, daily range): BP systolic 127–200; BP diastolic 76–120; PULSE 78–120; RESP 16–26; TEMP 36.7–37.2; O2SAT 95–99; BMI 31.9
[2025-01-14] MEDS: NICARdipine 25 MG in 0.9% Normal Saline (250mL Bag) 240 ML 50 MG CONT INF (10:28)
[2025-01-14 10:39] LABS: Hematocrit 39.8 % (37-47); Hemoglobin 13.0 g/dL (12.0-15.0); Immature Granulocytes Count 0.060 X10^3/uL (0.0-0.0); Mean Corp Hgb Conc 32.7 g/dL (32-36); Mean Corpuscular Volume 88.1 fL (81-99); Mean Platelet Vol. 9.9 fl (6.2-12.0); NRBC Flagged by Analyzer 0 % (0-5); Platelet Count 321 K/mm3 (150-450); RBC Distribution Width CV 13.3 % (11.6-14.6); RBC Distribution Width SD 42.8 fl (35.1-43.9); Red Blood Count 4.52 M/mm3 (4.2-5.4); White Blood Count 9.5 K/mm3 (4.4-11.0)
[2025-01-14 10:44] LABS: Prothrombin Time (Protime)PT. 13.3 SECONDS (11.7-14.9)
[2025-01-14 10:45] LABS: Partial Thromboplast Time 26.7 Seconds (24.1-36.2)
[2025-01-14 10:49] LABS: Anion Gap 12 (5-15); BUN 17 mg/dL (4-19); BUN/Creat Ratio 23.8 RATIO (10-20); Calcium,Total 8.6 mg/dL (7.6-11.0); Carbon Dioxide 23.7 mmol/L (21.0-32.0); Chloride 102 mmol/L (98-108); Estimated Creatinine Clearance 70.73 ml/min (50-250); Glucose 121 mg/dL (70-99); Potassium 3.8 mmol/L (3.3-5.1)
[2025-01-14 10:50] LABS: Troponin T High Sensitivity 10 ng/L (<=14)
== END 2025-01-14 12:15 | disposition short-term general hospital (02) ==
PROVIDERS: Emergency Provider Surgery; PCP Internal Medicine; Visit Provider Surgery
DX: I60.8 Other nontraumatic subarachnoid hemorrhage (principal); G81.94 Hemiplegia, unspecified affecting left nondominant side; J44.9 Chronic obstructive pulmonary disease, unspecified; R29.810 Facial weakness; R29.702 NIHSS score 2; I25.10 Atherosclerotic heart disease of native coronary artery without angina pectoris; I25.2 Old myocardial infarction; E78.5 Hyperlipidemia, unspecified; I10 Essential (primary) hypertension; F17.210 Nicotine dependence, cigarettes, uncomplicated; Z95.5 Presence of coronary angioplasty implant and graft; Z79.02 Long term (current) use of antithrombotics/antiplatelets; Z79.51 Long term (current) use of inhaled steroids; Z79.82 Long term (current) use of aspirin; Z79.899 Other long term (current) drug therapy
CPT/HCPCS: 70450; 70496; 70498; 71045; 80048; 84484; 85025; 85610; 85730; 93005; 96365; 96366; 96375; 99285; Q9967; A4216

== ENCOUNTER → 2025-02-04 | Outpatient (CLI) | payer MEDICARE, OTHER, SELFPAY ==
[2025-01-03 12:13] VITALS: BMI 29.3
--- NOTE | 2025-02-04 15:25 | RAD_ITS ---
PROCEDURE: LUMBAR SPINE 2 OR 3 VIEWS 02/04/2025 REASON FOR EXAM: LOW BACK PAIN TECHNIQUE: LUMBAR SPINE 2 OR 3 VIEWS COMPARISON: No FINDINGS: Mild scoliosis. Diffuse facet arthritis, most pronounced L3 through S1. Multilevel mild disc space narrowing, small osteophytes. No acute bone or soft tissue pathology. RAD/Lumbar Spine 2 or 3 Views IMPRESSION: Lumbar spine scoliosis and degeneration. [facility]
--- NOTE | 2025-02-04 15:25 | RAD_ITS ---
PROCEDURE: HIP, UNI W/ PELVIS 2-3 VIEWS 02/04/2025 REASON FOR EXAM: HIP PAIN TECHNIQUE: HIP, UNI W/ PELVIS 2-3 VIEWS COMPARISON: No FINDINGS: Benign chondroid lesion in the right femoral neck. Mild bilateral hip osteoarthritis. Lower lumbar spine degeneration. No acute bone or soft tissue pathology. RAD/HIP, UNI W/ Pelvis 2-3 Views IMPRESSION: No acute findings Reading [facility]
== END | disposition home or self-care (01) ==
LOC: RAD.FUTURE 15:14
PROVIDERS: PCP Internal Medicine; Referring Provider Anesthesiology; Visit Provider Anesthesiology
DX: M54.50 Low back pain, unspecified (principal); M25.551 Pain in right hip
CPT/HCPCS: 72100; 73502

== ENCOUNTER 2025-02-08 10:13 | Outpatient (RCR) | payer MEDICARE, OTHER, SELFPAY ==
--- NOTE | 2025-02-27 08:28 | PCM.CR.ITP ---
Exercise - Initial Assessment Physician Prescribed Exercise Modalities: Treadmill, SciFit Stepper and SciFit Pro-II Ergometer Psychosocial - Initial Assess Target Goals Target Goals Nutrition Survey Nutrition Survey Instructions Scoring Instructions Exercise - 30-day Assessment Physician Prescribed Exercise Modalities: Treadmill, SciFit Stepper and SciFit Pro-II Ergometer Exercise - 60-day Assessment Visit Date of Eval: 02/27/25 Session #:: 1 (Pt has not attended Cardiac Rehab since 01/07/25) Physician Prescribed Exercise Modalities: Treadmill, SciFit Stepper and SciFit Pro-II Ergometer Frequency: 3x/week for 12 weeks [36 sessions] Intensity: 60-80% of age predicted maximum heart rate reserve Duration: 30 - 45 minutes Target Heart Rate:: 92-115 Resting Blood Pressure: 180/98 Maximum Exercise Blood Pressure: 160/80 EKG Type: NSR to ST w/ Twave inversion with rare pac,pvc Outcomes & Goals Goals:: Verbalizes understanding of THR, RPE & goal METS by session 6, Documents in home exercise log/reports 30 min aerobic 5 day/wk by DC, Demonstrates accurate pulse taking by DC and Other additional outcome/goals: see below Intervention & Plan Exercise Program Goals: Instruct on personal THR & RPE, Instruct on MET level & personal MET goal, Show patient to take own pulse /validate performance until accurate, Instruct on home exercise and Other additional plan/int 30-day Reassessments 30 day Reassessments:: Not Met Physical Activity Home Exercise Physical Activity - Home Exercise: Safe Exercise, Warm-up, Self-monitoring, Cool-Down, Home Exercise > 30 min Daily and Sitting Time <3 hours/daily Outcomes & Goals Outcomes/Goals: Demonstrates correct Warm-up/exercise Cool-Down (S3) if = 2.5 METs, Verbalizes symptoms of exercise intolerance by Session 3 (S3), Demonstrate safe equipment use (S3) & follows exercise prescrition (6) and Other: See below Intervention & Plan Plan/Intervention: Instruct warm-up & cool-down if exercising at > 2 METs, Instruct on symptoms of exercise intolerance & actions to take, Instruct & monitor on saf, Assess intial functional capacity & safety risk and Other See below 30-day Reassessments 30 day Reassessments:: Not Met Exercise - 90-day Assessment Physician Prescribed Exercise Modalities: Treadmill, SciFit Stepper and SciFit Pro-II Ergometer Exercise - Final/Discharge Physician Prescribed Exercise Modalities: Treadmill, SciFit Stepper and SciFit Pro-II Ergometer Nutrition - 60-Day Assessment Program Goals Nutrition Program Goals Patient has diagnosis of Hyperlipidemia (ICD E78)?: Yes Visit Date of Eval: 02/27/25 (Pt has not attended Cardiac Rehab since 01/07/25) Core - 60-Day Assessment Visit Date of Eval: 02/27/25 (Pt has not attended Cardiac Rehab since 01/07/25) Psychosocial - 30-Day Assess Target Goals Target Goals Psychosocial - 60-Day Assess VIsit Date of Eval: 02/27/25 Session #:: 1 (Pt has not attended Cardiac Rehab since 01/07/25) Target Goals Target Goals Psychosocial - 90-Day Assess Target Goals Target Goals Psychosocial - Final Assessmen Target Goals Target Goals
[2025-02-27 08:32] VITALS: BP 180/98
== END 2025-03-10 23:59 ==
LOC: CR 10:13
PROVIDERS: PCP Internal Medicine; Referring Provider Internal Medicine Cardiovascular Disease; Visit Provider Internal Medicine Cardiovascular Disease
DX: I21.4 Non-ST elevation (NSTEMI) myocardial infarction (principal); Z95.5 Presence of coronary angioplasty implant and graft
CPT/HCPCS: 93798

== ENCOUNTER → 2025-03-01 | Outpatient (CLI) | payer MEDICARE, OTHER, SELFPAY ==
[2025-03-01 16:45] LABS: Mucous, Urine 0 SEEN /hpf (<or=2+)
[2025-03-01 16:51] LABS: Color, Urine Yellow (Yellow); Glucose, Dipstick Normal (Normal); Ketone-Dipstick Negative (Negative); Leukocyte Esterase-Dipstick 500 /ul (Negative); Nitrite-Dipstick Positive (Negative); Occult Blood-Urine 25 /ul (Negative); Protein-Dipstick 30 mg/dl (Negative); Specific Gravity, Urine 1.010 (1.002-1.030); Urine Bilirubin Dipstick Negative (Negative)
[2025-03-01 17:09] LABS: Red Blood Cells-Urine 0-5 SEEN /hpf (0-5); Squamous Epithelial Cells - UA 10-25 SEEN /hpf (5-10)
== END | disposition home or self-care (01) ==
LOC: LABSPEC 16:39
PROVIDERS: PCP Internal Medicine; Referring Provider Internal Medicine; Visit Provider Internal Medicine
DX: R35.0 Frequency of micturition (principal)
CPT/HCPCS: 81001; 87077; 87086; 87088; 87186

== ENCOUNTER → 2025-03-05 | Outpatient (CLI) | payer MEDICARE, OTHER, SELFPAY ==
[2025-03-05 10:45] LABS: Hematocrit 40.2 % (37-47); Hemoglobin 13.5 g/dL (12.0-15.0); Immature Granulocytes Count 0.030 X10^3/uL (0.0-0.0); Mean Corp Hgb Conc 33.6 g/dL (32-36); Mean Corpuscular Volume 86.3 fL (81-99); Mean Platelet Vol. 9.5 fl (6.2-12.0); NRBC Flagged by Analyzer 0 % (0-5); Platelet Count 420 K/mm3 (150-450); RBC Distribution Width CV 13.7 % (11.6-14.6); RBC Distribution Width SD 43.4 fl (35.1-43.9); Red Blood Count 4.66 M/mm3 (4.2-5.4); White Blood Count 10.9 K/mm3 (4.4-11.0)
[2025-03-05 11:52] LABS: Cholesterol 144 mg/dL (<=200); Low Density Lipoprotein Calc. 83 mg/dL; Triglycerides 107 mg/dL; Very Low Density Lipoprotein 21 mg/dL (5-40); cholesterol:hdl ratio screen 3.67
[2025-03-05 12:10] LABS: AST(SGOT) 21 U/L (<=31); Alanine Aminotransfer ALT/SGPT 22 U/L (<=34); Albumin, Serum 4.0 g/dL (3.4-4.8); Alkaline Phosphatase 79 U/L (35-104); Anion Gap 13 (5-15); BUN 22 mg/dL (4-19); BUN/Creat Ratio 31.8 RATIO (10-20); Bilirubin, Direct 0.18 mg/dL (0.00-0.30); Calcium,Total 9.7 mg/dL (7.6-11.0); Carbon Dioxide 27.0 mmol/L (21.0-32.0); Chloride 99 mmol/L (98-108); Globulin 3.4 g/dL (2.2-4.2); Glucose 104 mg/dL (70-99); Potassium 3.7 mmol/L (3.3-5.1); Vitamin D,25 Hydroxy 15.2 ng/mL (30-100)
== END | disposition home or self-care (01) ==
PROVIDERS: Physician Assistant Medical; PCP Internal Medicine; Referring Provider Internal Medicine; Visit Provider Internal Medicine
DX: I10 Essential (primary) hypertension (principal); E78.5 Hyperlipidemia, unspecified; M81.0 Age-related osteoporosis without current pathological fracture
CPT/HCPCS: 36415; 80053; 80061; 82248; 82306; 84439; 84443; 85025

== ENCOUNTER 2025-03-13 09:17 | Outpatient (RCR) | payer MEDICARE, OTHER, SELFPAY | END 2025-04-09 23:59 | LOC: CR 09:17 | PROVIDERS: PCP Internal Medicine; Referring Provider Internal Medicine Cardiovascular Disease; Visit Provider Internal Medicine Cardiovascular Disease | DX: I21.4 Non-ST elevation (NSTEMI) myocardial infarction (principal); Z95.5 Presence of coronary angioplasty implant and graft | CPT/HCPCS: 93798 ==

== ENCOUNTER → 2025-03-13 | Outpatient (CLI) | payer MEDICARE, OTHER, SELFPAY ==
[2025-03-13 15:49] LABS: Ferritin 208 ng/mL (22-378); Iron 111 ug/dL (50-170); Iron Binding Capacity,Total 301 ug/dL (250-450); Iron Binding Capacity,Unsat 190 ug/dL (228-428); Vitamin B12 341 pg/mL (180-914)
[2025-03-15 16:09] LABS: Folate, Hemolysate Test 402.0 ng/mL (Not Estab.); Folate, RBC (Hct) Test 43.8 % (34.0-46.6); Folates, RBC Test 918 ng/mL (>498)
== END | disposition home or self-care (01) ==
LOC: MTLAB 14:04
PROVIDERS: PCP Internal Medicine
DX: G25.81 Restless legs syndrome (principal); R53.83 Other fatigue; Z86.73 Personal history of transient ischemic attack (TIA), and cerebral infarction without residual deficits; Z86.79 Personal history of other diseases of the circulatory system
CPT/HCPCS: 36415; 82607; 82728; 82747; 83540; 83550; 84443; 85014